=== PATIENT | female | born 1975 | race Caucasian/White ===

== ENCOUNTER 2024-03-18 01:15 | Inpatient (IN) | payer MEDICARE, OTHER, SELFPAY ==
[2024-03-17 18:47] VITALS: BP 90/72
[2024-03-17] MEDS: TYLENOL/FEVERALL 650 MG RECTAL (20:28)
--- NOTE | 2024-03-17 20:28 | ED.GENMED ---
History of Present Illness
General
Chief Complaint: Urinary Symptoms
Time Seen by Provider: 03/17/24 19:40
Travel History
Have you had any contact with someone who has COVID-19?: No
Do you have any symptoms of coronavirus? Fever > 100 degrees, chills, cough, shortness of breath, sore throat, loss of taste or smell, muscle aches, or headache?: No
History of Present Illness
History of Present Illness:
48-year-old female with history of cerebral palsy and related TBI presents the emergency department with both parents for evaluation of fever over the past 2 days. She has been treated for recurrent UTIs by her primary care physician multiple
times over the past month, reportedly had courses of Macrobid, ciprofloxacin, and for the past 2 days has been on levofloxacin. Per family she has not been drinking much water for the past 48 hours. She is nonverbal at baseline. All of her past
urine culture data is through [facility] and the parents do not have access to her health portal at this time
Review of Systems
Review of Systems
Allergies reviewed?: Yes
All Other Systems: ROS reviewed and negative except as documented in HPI and ROS
Phy Exam
Physical Exam
Physical Exam:
GEN: Chronically ill-appearing, nonverbal
HEENT: Oral mucosa dry, pupils PERRLA
Cardiac: Mildly tachycardic, regular
Lung: Tachypneic, coarse throughout rhonchi heard throughout all lung barkley, potentially transmitted upper airway sounds
Abdomen: Soft, nonrigid, patient grunts to palpation of the lower abdomen
MSK: No gross deformity or injuries
Skin: Good color, no pallor or jaundice, no rashes
Neuro: Eyes open, does not follow commands
Psych: Calm, cooperative
Course
Orders/Labs/Results
Orders:
Orders
03/17/24 20:27
Acetaminophen [Tylenol/Feverall] 650 mg .ROUTE .STK-MED ONE
05/03/24 20:28
Straight cath- Treatment ONCE
Acetaminophen [Tylenol/Feverall] 650 mg RECTAL NOW STA
03/17/24 20:42
Complete Blood Count/With Diff Urgent
Comprehensive Metabolic Panel Urgent
Lactic Acid Q4H
Comment: CANCEL 2nd LACTIC ACID IF 1st LACTIC ACID IS LESS THAN 2
Prothrombin Time Urgent
Urinalysis Reflex To Culture Urgent
Date Specimen was Collected: 03/17/24
Time Specimen was Collected: 20:39
Urine Microscopic Reflex Cult Urgent
Blood Culture Q30M
MANSOOR Source: Blood/Venous
Specimen Description:
Blood Culture Q30M
MANSOOR Source: Blood/Venous
Specimen Description:
Urine Culture Urgent
MANSOOR Source: U
Specimen Description:
Date Specimen was Collected: 03/17/24
Time Specimen was Collected: 20:39
03/17/24 20:58
CT Chest/abd/pel W Iv Cont Urgent
Comment:
Reason For Exam: sepsis, hypoxic, recent UTI, non verbal
03/17/24 21:13
COVID-19 Antigen Urgent
Source: Nasal Swab
Influenza A+B Rapid Molecular Urgent
MANSOOR Source: Nasal Swab
Specimen Description:
03/17/24 22:57
Cefepime HCl [Maxipime] 2,000 mg IV NOW STA
03/17/24 23:00
0.9% Sodium Chloride 1000 ml [Nss] 1,000 ml IV BOLUS
03/17/24 23:28
Vancomycin 750 mg/150 ml [Vancocin] 750 mg in 150 ml IV NOW
03/17/24 23:29
Procalcitonin Urgent
PCT Algorithmm Indication: Sepsis
03/18/24 00:36
Admit/Transfer Patient As Directed
Co-Sign Provider:
Level of Care: Inpatient admission
Assign to:: IMU- Intermediate Care
Physician / Group: Yosef
Diagnosis: Sepsis, Pneumonia
Reason for Hospitalization: Sepsis, Pneumonia
Expected length of stay greater than two midnights?: Yes
ELOS- Estimated Length of Stay in days: 3
I certify the patient meets the requirements for IP care: Yes
03/18/24 00:54
Code Status As Directed
Resuscitation Status: Full Code
03/18/24 01:31
0.9% Sodium Chloride 1000 ml [Nss] 1,000 ml IV 125 mls/hr
Acetaminophen [Tylenol] 650 mg PO Q4HPRN PRN
Albuterol Nebs [Ventolin Nebules] 2.5 mg INH R Q4HPRN PRN
03/18/24 01:31
Consult Notification Routine
Specialty to Notify: Infectious Disease
INFECTIOUS DISEASE CONSULT Routine
Consulting Provider: Odilia Sy
Was physician already notified: No
Reason for consult: Sepsis, Pneumonia / UTI
TSH Reflex To Free T4 Routine
Strep pneumoniae Antigen Routine
MANSOOR Source: Urine
Specimen Description:
Activity As Directed
Activity Level: Out of Bed- Chair
With Assistance
Bladder Scan As Directed
Follow Bladder Retention/Intermittent Cath Algorithm?: Yes
PRN if no void in __ hours: 6
Frequency: Per Retention Algorithm
If Bladder Scan Result >: 400
then:: Straight cath
I/O [Intake/ Output] As Directed
Frequency: Per unit guidelines
Pneumatic Compression Sleeves As Directed
Type: Knee high
Records Request [Obtain Records] As Directed
Dates of Information to be Released: Most Recent
Type of Information Requested: Lab Results
If Other, list type of info requested: Micro / Urine cultures
Obtain Records from: Dr. Timbo Courtney
Straight Cath As Directed
Frequency: Per Retention Algorithm
Additional Instructions: straight cath as needed per acute urinary retention algorithm for 24 hrs
Additional Instructions: for bladder scan greater than 400 mL
Vital Signs As Directed
Frequency: Per unit guidelines
Chest PT [Rx Chest Pt] [RESP] Routine
Special Instructions: BID
Oxygen Therapy [O2 Therapy] [RESP] Routine
Titrate/Wean O2 to maintain O2 sat greater than (%): 94
Ot Eval And Treat Routine
PT Consult [Pt Eval And Treat] Routine
Activity Level: Ambulate
With Assistance
Speech Therapy Eval & Treat Routine
US Renal With Bladder Routine
Comment:
Reason For Exam: Recurrent UTI
DX Deep Vein Thrombosis Video Routine
03/18/24 02:00
Piperacillin/Tazo 3.375 Gram [Zosyn] 3.375 gram in 50 ml IV Q6H
03/18/24 06:00
Basic Metabolic Panel IN AM
Complete Blood Count/No Diff IN AM
03/18/24 08:00
Clobazam (Non-Form) [Onfi] 10 mg PO BID
Docusate Sodium [Colace Liquid] 100 mg PO DAILY
Midodrine [ProAmatine] 15 mg PO TID
Polyethylene Glycol Powder [Miralax] 17 grams PO DAILY
oxcarbazepine [Trileptal] 600 mg PO BID
03/18/24 18:00
Enoxaparin Sodium [Lovenox] 40 mg SC QPM
Spvmavuny-Ysj-Ozuh [Femara] 2.5 mg PO QPM
Montelukast Sodium [Singulair] 10 mg PO QPM
Sennosides [Senna Syrup] 8.8 mg PO QPM
03/18/24 22:00
tiagabine 4 mg PO HS
03/19/24 Breakfast
NPO
Allow oral meds: Yes
Allow clear liquids: Sips of Clears
Abnormal Lab Results
03/17/24
20:42
MPV 10.9 H fL
(7.4-10.4)
Absolute Lymphs (auto) 0.7 L 10^3/uL
(1.2-3.4)
Absolute Monos (auto) 0.7 H 10^3/uL
(0.1-0.6)
Neutrophils % 79.2 H %
(42.2-75.2)
Lymphocytes % 9.8 L %
(20.5-51.1)
PT 15.2 H Sec
(11.4-14.6)
Chloride 109 H mmol/L
(98-107)
BUN 33 H mg/dl
(7-17)
Glucose 104 H mg/dl
(70-99)
AST 48 H U/L
(14-36)
Urine Ketones Trace A
(Negative)
Ur Occult Blood Reflex 3+ A
(Negative)
Leukocyte Esterase Rfl 2+ A
(Negative)
Urine RBC 30-40 A /HPF
(0-2)
Urine WBC (Reflex) 50-60 A /HPF
(0-5)
Urine Bacteria (Reflex) Many A
(Negative)
03/17/24 20:42
03/17/24 20:42
Vital Signs
Initial and Last Documented VS:
Initial Vital Signs
Temp Pulse Resp BP Pulse Ox
99.1 F 94 22 90/72 95
03/17/24 18:47 03/17/24 18:47 03/17/24 18:47 03/17/24 18:47 03/17/24 18:47
Last Documented Vital Signs
Temp Pulse Resp BP Pulse Ox
100 F 90 16 94/53 94
03/17/24 22:30 03/17/24 22:30 03/17/24 20:52 03/18/24 01:00 03/18/24 01:00
MDM/Problems Addressed
MDM/Problems Addressed:
Given the patient's nonverbal status as well as her associated hypoxia we opted for CT of the chest abdomen pelvis to evaluate for occult source of fever, this did note extensive bilateral pneumonia. Could be viral in nature given the bilateral
pattern coupled with lack of leukocytosis and normal procalcitonin however given her medical comorbidities we will treat this with broad-spectrum IV antibiotics particularly given the likelihood of a UTI. Will admit to the hospitalist service due
to hypoxia with pneumonia
*Critical Care Note
Total Time (30-74mins, 75-104mins- exclusive of procedures): Not Applicable
ED Attending Note
-
Portions of this chart may have been created with voice recognition software.� Occasional wrong word or��sound alike� substitutions may have occurred due to the inherent limitations of voice recognition software.
Discharge Plan
Departure
Patient Disposition: Admit
Date of Disposition: 03/17/24
Time of Disposition: 23:00
Presentation/result/management discussed w/ accepting MD/DO: Hospitalist
Discharge Problem:
Bilateral pneumonia, Urinary tract infection
Interventions
Interventions:
*Risk Screen - Suicide Last Done: 03/17/24 18:47
*General Assessment Last Done: 03/17/24 19:59
*Neglect/Abuse Screening Last Done: 03/17/24 18:47
ED- Fall Risk Assessment Last Done: 03/17/24 18:47
*ED COVID-19 Vaccine History Last Done: 03/17/24 18:47
ED-Female Genitourinary Assessment Last Done: 03/17/24 19:59
[2024-03-17 20:50] LABS: % Basophils 0.5 % (0-2); % Eosinophils 1.3 % (0-6); % Immature Granulocytes 0.4 % (0-0.5); % Lymphocytes 9.8 % (20.5-51.1); % Monocytes 8.8 % (1.7-9.3); % Neutrophils 79.2 % (42.2-75.2); Absolute Eosinophils 0.1 10^3/uL (0-0.7); Absolute Lymphocytes 0.7 10^3/uL (1.2-3.4); Absolute Monocytes 0.7 10^3/uL (0.1-0.6); Hematocrit 37.7 % (37.0-47.0); Hemoglobin 13.1 g/dL (12.0-16.0); Mean Corp Hgb Conc. 34.7 g/dL (33.0-37.0); Mean Corpuscular Hgb 29.7 pg (27.0-31.0); Mean Corpuscular Volume 85.5 fL (81.0-99.0); Mean Platelet Volume 10.9 fL (7.4-10.4); Nucleated Red Blood Cells % 0 %; Platelet Count 204 10^3/uL (130-400); Red Blood Cell Count 4.41 10^6/uL (4.20-5.40); Red Cell Dist. Width 13.5 % (11.5-14.5); White Blood Cell Count 7.5 10^3/uL (4.8-10.8)
[2024-03-17 20:51] LABS: Urine Albumin Trace (Neg - Trace); Urine Bilirubin Negative (Negative); Urine Character Slightly Cloudy (Clear); Urine Color Yellow; Urine Glucose Negative (Negative); Urine Ketone Trace (Negative); Urine Leukocyte 2+ (Negative); Urine Nitrite Negative (Negative); Urine Occult Blood 3+ (Negative); Urine Urobilinogen Negative (Neg - 1+)
[2024-03-17 20:52] VITALS: BP 105/73
[2024-03-17 20:57] LABS: Urine Calcium Oxalate Crystals Present
[2024-03-17 20:58] LABS: Urine White Cell 50-60 /HPF (0-5)
[2024-03-17 21:00] VITALS: BP 99/61
[2024-03-17 21:00] LABS: INR 1.22; PT 15.2 Sec (11.4-14.6)
[2024-03-17 21:01] LABS: Lactic Acid 1.7 mmol/L (0.7-2.0); Urine Red Blood Cell 30-40 /HPF (0-2)
[2024-03-17 21:03] LABS: Urine Bacteria Many (Negative)
[2024-03-17 21:18] LABS: ALT (SGPT) 21 U/L (0-35); AST (SGOT) 48 U/L (14-36); Alkaline Phosphatase 121 U/L (38-126); Blood Urea Nitrogen 33 mg/dl (7-17); Carbon Dioxide 25 mmol/L (22-30); Chloride 109 mmol/L (98-107); Estimated Creatinine Clearance 65 ml/min; Glucose 104 mg/dl (70-99); Potassium 4.3 mmol/L (3.5-5.1); Sodium 139 mmol/L (135-145); Total Bilirubin 0.6 mg/dl (0.2-1.3); Total Protein 7.4 g/dl (6.3-8.2); eGFR > 60.00
[2024-03-17 21:36] LABS: COVID-19 Antigen Negative (Negative)
[2024-03-17 22:29] VITALS: BP 94/44
[2024-03-17 22:30] VITALS: BP 94/44
[2024-03-17] MEDS: NSS 1000 IV (23:26)
[2024-03-17] MEDS: MAXIPIME 2000 MG IV (23:26)
[2024-03-17] MEDS: VANCOCIN 150 IV (23:46)
[2024-03-18] VITALS (19 sets, daily range): BP systolic 75–133; BP diastolic 38–118; BMI 26.9
[2024-03-18 00:17] LABS: Procalcitonin 0.08 ng/ml (0.0-0.25)
--- NOTE | 2024-03-18 00:58 | HPS.HSE ---
Family Physician
-
Family Physician: Timbo Courtney
Chief Complaint
-
Fever
History of Present Illness
Patient is a 48y F with PMH significant for cerebral palsy and ovarian cancer who presents to ED for evaluation of fever, congestion and decreased urine output over the past 24 hours. History obtained from family at the bedside as patient is
non-verbal at baseline. Patient has been having issues with 'UTI' for the past month or so. She has been followed by Dr. Timbo Courtney and has been treated with 3 abx in that time frame. Family states that she had an abnormal UA and was treated
with 10 days of antibiotics. One week after these completed, she had a repeat UA done. This was reportedly still 'positive' and patient was treated with a second 10 days course of abx. Again, she had a repeat UA done 1 week later and was started
on levofloxacin 500mg daily. She has completed 2/3 days of this course thus far.
Today, patient was noted to be more lethargic than usual. Family noted nasal congestion, increased respiratory effort and poor oral intake.
She had no urine output throughout the day on Wednesday - until she arrived here in the ED and passed some urine.
Patient was noted ta home to have a fever to 102. Here in the ED temperature is 103.2.
No recent sick contacts are known - though patient does attend a day care program.
Medical History
Past Medical History
Past Medical History: Reports Other
Additional Past Medical History:
Cerebral Palsy
Ovarian Cancer s/p Surgery and Hormone Treatment
Seizure Disorder
Past Surgical History: Reports Other
Additional Past Surgical History:
LUCERO / BSO
Appendectomy
Vagus Nerve Stimulator Implantation (Left Upper Chest)
Social History
Tobacco: Non-smoker
Alcohol: None
Drug: None
Living: With Family
Family History
Family History: Not pertinent
Allergies / Home Medications
Allergies reflects when Allergies were last updated in [facility].
Home Medications with original date entered in [facility]
Allergy/Medication List:
Allergies
Allergy/AdvReac Type Severity Reaction Status Date / Time
brompheniramine Allergy Unknown Verified 03/17/24 18:58
[From Dimetapp Cold-Allergy
(PE)]
cephalexin [From Keflex] Allergy Unknown Verified 03/17/24 18:58
chloral hydrate Allergy Unknown Verified 03/17/24 18:58
diphenhydramine Allergy Unknown Verified 03/17/24 18:58
[From Benadryl]
latex Allergy Swelling Verified 03/17/24 18:54
phenobarbital Allergy Unknown Verified 03/17/24 18:58
phenylephrine Allergy Unknown Verified 03/17/24 18:58
[From Dimetapp Cold-Allergy
(PE)]
phenytoin [From Dilantin] Allergy Rash Verified 03/17/24 18:54
Sulfa (Sulfonamide Allergy Hives Verified 03/17/24 18:46
Antibiotics)
topiramate [From Topamax] Allergy Rash Verified 03/17/24 18:54
Home Medications
Lactobac no.2-Bifidobac no.1-S. thermo 112.5 billion cell capsule (Visbiome) 1 cap PO DAILY 03/17/24
ascorbic acid (vitamin C) 500 mg tablet (Vitamin C) 500 mg PO DAILY 03/17/24
calcium carbonate 500 mg PO QPM 03/17/24
cetirizine 10 mg tablet (Zyrtec) 10 mg PO DAILY 03/17/24
clobazam 10 mg tablet (Onfi) 10 mg PO BID 03/17/24
docusate sodium 50 mg/5 mL oral liquid 100 mg PO DAILY 03/17/24
fluticasone propionate 50 mcg/actuation nasal spray,suspension 1 spray intranasal DAILY 03/17/24
letrozole 2.5 mg tablet 2.5 mg PO QPM 03/17/24
midodrine 5 mg tablet 15 mg PO TID 03/17/24
montelukast 10 mg tablet (Singulair) 10 mg PO QPM 03/17/24
nitrofurantoin macrocrystal 50 mg capsule 50 mg PO DAILY 03/17/24
oxcarbazepine 600 mg tablet (Trileptal) 600 mg PO BID 03/17/24
polyethylene glycol 3350 17 gram oral powder packet (Miralax) 17 g PO DAILY 03/17/24
sennosides 8.8 mg/5 mL oral syrup (senna) 8.8 mg PO QPM 03/17/24
tiagabine 4 mg tablet 4 mg PO HS 03/17/24
Review of Systems
-
History Source: Family
A 12 point ROS was completed and negative except as noted: Yes
Constitutional: Reports Fever and Fatigue
EENT: Reports Other (nasal congestion)
Respiratory: Reports Trouble Breathing; Denies Cough
Cardiac: Denies Chest Pain
Abdomen/GI: Reports Constipated and Anorexia; Denies Nausea, Vomiting, Diarrhea, Bloody Stools or Black Stools
: Reports Other (Decreased urine output.)
Physical Exam
Vital Signs
Vital Signs
Temp Pulse Resp BP Pulse Ox
100 F 90 16 94/44 94
03/17/24 22:30 03/17/24 22:30 03/17/24 20:52 03/17/24 22:30 03/18/24 00:45
Physical Exam
General: Other (48y F chronically ill-appearing / moderate - severe cerebral palsy appearance.)
HEENT: Other (Dry MM. Tongue protruded.)
Respiratory: Other (Diffuse rales bilaterally. No wheeze / rhonchi.)
Cardiac: S1/S2 and Regular Rhythm; No Murmur
Breast: Other (L ACW nerve stimulator deice subcutaneously. No overlying erythema, fluid collection, evident tenderness.)
GI: Soft, Non Tender, Non Distended and Normal Bowel Sounds
Musculoskeletal: No Clubbing, No Cyanosis and No Edema
Neuro: Other (Some extremity contractures / chronic. Non-verbal at baseline.)
Laboratory Results
-
03/17/24 20:42
03/17/24 20:
Laboratory Results
PT 15.2 Sec (11.4-14.6) H 03/17/24 20:42
INR 1.22 03/17/24 20:
Lactic Acid 1.7 mmol/L (0.7-2.0) 03/17/24 20:42
Total Bilirubin 0.6 mg/dl (0.2-1.3) 03/17/24 20:
AST 48 U/L (14-36) H 03/17/24 20:
ALT 21 U/L (0-35) 03/17/24 20:
Alkaline Phosphatase 121 U/L (38-126) 03/17/24 20:42
Impression/Plan
-
A/P: Patient is a 48y F with PMH significant for cerebral palsy, seizure disorder and history of ovarian cancer who presents to ED for evaluation of fever, congestion and poor oral intake.
Sepsis
- Admit for further evaluation and treatment.
- Fever to 103.2, tachycardia, tachypnea and potential sources of infection including lungs and .
- Treat / investigate individual issues as noted below.
- IVF support, antipyretics, etc.
- Follow for clinical improvement.
Bilateral Pneumonia
- CT scan with bilateral ground glass opacities c/w pneumonia.
- CT imaging, exam findings, etc are consistent with viral process.
- Procalcitonin was also done in the ED and note that this is 0.08 - also c/w viral infection.
- COVID and influenza are negative in the ED.
- Will continue abx for now - mostly as patient also has possible UTI (see below).
- Follow for clinical improvement.
- Chest PT, nebs, IS, etc.
Persistent / Recurrent UTI?
- UA in the ED today with pos WBC and bacteria, but negative nitrites.
- Patient has completed two 10 day courses of antibiotics + two days of levofloxacin thus far.
- Would be interested in seeing culture data from prior urine testing and will send to Dr. Courtney for these results.
- Continue IV abx for now.
- Follow-up urine culture results here.
- Check renal / bladder US.
- ID evaluation.
Cerebral Palsy
Seizure Disorder
- Stable. Family notes that patient has frequent - though mild - breakthrough seizures.
- Continue current AED regimen without changes.
- Follow for any persistent seizure activity.
History of Ovarian Cancer
- s/p surgery and then hormonal therapy.
- Has completed treatment x 5 years.
- Remains on letrozole at family preference.
DVT Prophylaxis: Lovenox
Code Status: Full
[2024-03-18] MEDS: NSS 1000 IV ×3 (02:20→22:00)
[2024-03-18] MEDS: ZOSYN 50 IV ×4 (02:21→19:37)
--- NOTE | 2024-03-18 03:06 | PTCARENOTE ---
Received pt from ED RN. Pt was pulled over from the stretcher to our bed. Pt is nonverbal. NSR on the monitor. On 2L NC O2 sat 95%, lungs coarse/diminished. Incont x2. IVF infusing @ 125 ml/hr. CHG bath provided and mouth care provided. Mom @
bedside. Pt is laying comfortable in bed with call velazquez in reach.
[2024-03-18 05:24] LABS: Hematocrit 34.4 % (37.0-47.0); Hemoglobin 11.7 g/dL (12.0-16.0); Mean Corpuscular Hgb 29.7 pg (27.0-31.0); Mean Corpuscular Volume 87.3 fL (81.0-99.0); Mean Platelet Volume 11.3 fL (7.4-10.4); Platelet Count 185 10^3/uL (130-400); Red Blood Cell Count 3.94 10^6/uL (4.20-5.40); Red Cell Dist. Width 13.3 % (11.5-14.5); White Blood Cell Count 4.6 10^3/uL (4.8-10.8)
[2024-03-18 05:47] LABS: Blood Urea Nitrogen 29 mg/dl (7-17); Calcium 9.5 mg/dl (8.4-10.2); Carbon Dioxide 22 mmol/L (22-30); Chloride 112 mmol/L (98-107); Estimated Creatinine Clearance 79 ml/min; Glucose 92 mg/dl (70-99); Potassium 4.1 mmol/L (3.5-5.1); Sodium 140 mmol/L (135-145); eGFR > 60.00
[2024-03-18 06:16] LABS: TSH Reflex To Free T4 1.62 uIU/ml (0.47-4.68)
--- NOTE | 2024-03-18 08:21 | W.PN.UPDATE ---
Update Note
Progress Note Update
Seen by Dr. Navas this morning.
Admitted for sepsis -possible pneumonia/possible UTI.
Afebrile this morning. Hemodynamically stable. Oxygenating well on 1 L.
Eyes open but patient nonverbal.
Continue with broad-spectrum antibiotics pending culture data.
Obtain speech eval.
ID input pending.
Discussed with mother Tanisha at bedside regarding the findings and tx plan.
[2024-03-18] MEDS: ProAmatine 15 MG PO ×2 (09:07→22:00)
--- NOTE | 2024-03-18 09:47 | PTOTSP ---
Speech Therapy
Presentation: Patient is primarily nonverbal; baseline per mother. Patient demonstrated inconsistent wake windows in which patient would utilize eye gaze and intermitent verbalizations to communicate.
Per patient's mother, patient's baseline diet is puree solids and nectar thick liquids (straw) with full assistance/ supervision by mother. Medications crushed in puree, per mother.
Swallowing Function: During a wake window, BUSINESS CONTINUITY MANAGER trialed puree solids and nectar thick liqids (straw and tsp) in which patient did not appear interested in the presentations as she did not open her mouth to take the boluses. BUSINESS CONTINUITY MANAGER trialed ample times to
get the patient to follow commands in which patient inconsistently followed command minimally but not enough to take the presentations. Per mother, this is new for patient (past 2 days) but typically takes PO without any overt difficulty and has a
'good appetite'.
Given the recent Chest CT, pna, hx of dysphagia, and clinical presentation, recommend NPO at this time in hopes patient will become more alert prior to initiating diet.
Recommendations:
1) NPO at this time
2) Vigorous oral care daily
3) Aspiration precautions
4) Medications as tolerated
Plan: BUSINESS CONTINUITY MANAGER will continue to follow; pending hospitalization.
--- NOTE | 2024-03-18 10:46 | CON.ID ---
Consultation
-
Date/Time Consultation Requested: 03/18/24 1:31
Date/Time Consultation Performed: 03/18/24 10:46
Requesting Provider: Dr Navas
Performing Provider: Dr Sy
Reason for Consultation: Sepsis, Pneumonia / UTI
Chief Complaint / Past History
Chief Complaint
fever
History of Present Illness
Ms Orantes is a 48 year old female with history of cerebral palsy, seizure disorder, ovarian cancer who presented here last night for fever to 102.0, congestion, increased work of breathing, decreased UOP and poor oral intake. Patient nonverbal.
Family report three courses of antibiotics for UTI in the last month of so; at least some of these diagnoses are based on test of cure. Last antibiotic was levofloxacin 500 mg PO qday and she had taken 2 doses prior to arrival.
Since arrival here rectal Tmax 103.2 - no further fevers, bp intermittently mildly hypotensive, minimal short lived tachycardia, saturating 93% on 1L NC, wbc on arrival 7.5 now 4.6, hgb 11.7, plt 185, L shift was noted on admission, eos present, cr
0.7, lactic acid 1.7, t bili 0.6, ast 48, alt 21, alk phos 121, UA 50-60 wbc/hpf, covid ag neg, Ct c/a/p bilateal pneumonia, constipation, diffuse urinary bladder thickening, urine culture is pending, blood cultures x2 in progress, currently on Zosyn
Past History
Additional Past Medical History:
Cerebral Palsy
Ovarian Cancer s/p Surgery and Hormone Treatment
Seizure Disorder
Additional Past Surgical History:
LUCERO / BSO
Appendectomy
Vagus Nerve Stimulator Implantation (Left Upper Chest)
Allergy History:
brompheniramine [From Dimetapp Cold-Allergy (PE)] Allergy (Verified 03/17/24 18:58)
Unknown
cephalexin [From Keflex] Allergy (Verified 03/17/24 18:58)
Unknown
chloral hydrate Allergy (Verified 03/17/24 18:58)
Unknown
diphenhydramine [From Benadryl] Allergy (Verified 03/17/24 18:58)
Unknown
latex Allergy (Verified 03/17/24 18:54)
Swelling
phenobarbital Allergy (Verified 03/17/24 18:58)
Unknown
phenylephrine [From Dimetapp Cold-Allergy (PE)] Allergy (Verified 03/17/24 18:58)
Unknown
phenytoin [From Dilantin] Allergy (Verified 03/17/24 18:54)
Rash
Sulfa (Sulfonamide Antibiotics) Allergy (Verified 03/17/24 18:46)
Hives
topiramate [From Topamax] Allergy (Verified 03/17/24 18:54)
Rash
Medications Reviewed: Yes
Social History
Tobacco: Non-Smoker
Alcohol: None
Drug: None
Family History
Family History: Not Pertinent
Review of Systems
Review of Systems
General: Fever
unable to complete full ROS due to condition of the patient
Vital Signs
Temp Pulse Resp BP Pulse Ox
98.2 F 77 20 97/57 93
03/18/24 07:50 03/18/24 07:50 03/18/24 07:50 03/18/24 06:01 03/18/24 07:50
Physical Exam
Physical Exam
Constitutional: No Acute Distress
Cardiovascular: Regular Rate and S1/S2; Negative Murmur or Rub
Pulmonary: Clear and Symmetric; Negative Wheezes, Rales or Rhonchi
Gastrointestinal: Soft, Non Tender, Non Distended and Normal Bowel Sounds
Genito-Urinary: Suprapubic Tenderness (grimaces when I press over the bladder)
Skin: Warm and Dry; Negative Rash or Jaundice
Neurological: Negative Awake
Lab / Diagnostic Study Results
03/18/24 05:03
03/18/24 05:03
Abs Immat Gran (auto) 0.0 10^3/uL (0-0.05) 03/17/24 20:42
Absolute Neuts (auto) 6.0 10^3/uL (1.4-6.5) 03/17/24 20:42
Absolute Lymphs (auto) 0.7 10^3/uL (1.2-3.4) L 03/17/24 20:42
Absolute Monos (auto) 0.7 10^3/uL (0.1-0.6) H 03/17/24 20:42
Absolute Basos (auto) 0.0 10^3/uL (0-0.2) 03/17/24 20:42
Immature Gran % 0.4 % (0-0.5) 03/17/24 20:42
Neutrophils % 79.2 % (42.2-75.2) H 03/17/24 20:42
Lymphocytes % 9.8 % (20.5-51.1) L 03/17/24 20:42
Monocytes % 8.8 % (1.7-9.3) 03/17/24 20:42
Eosinophils % 1.3 % (0-6) 03/17/24 20:42
Basophils % 0.5 % (0-2) 03/17/24 20:42
PT 15.2 Sec (11.4-14.6) H 03/17/24 20:42
INR 1.22 03/17/24 20:42
Lactic Acid Cancelled 03/18/24 00:30
Procalcitonin 0.08 ng/ml (0.0-0.25) 03/17/24 23:29
Microbiology Results
Micro:
03/17/24 20:42 Streptococcus pneumoniae Antigen (M - Final
Urine Negative for Streptococcus pneumoniae antigen.
A negative result does not exclude infection with
Streptococcus pneumoniae. Clinical correlation is
recommended.
03/17/24 21:13 Influenza Types A & B ([facility]ARA) - Final
Nasal Swab Negative for Influenza A & B, NAAT
Negative results must be combined with clinical observations
and patient history.
Nucleic Acid Amplification test (NAAT)performed on the
[employer] platform.
03/17/24 20:42 Blood Culture - Pending
Blood/Venous
03/17/24 20:42 Urine Culture - Pending
Urine
03/17/24 20:42 Blood Culture - Pending
Blood/Venous
Assessment / Plan
Fever
Possible UTI
Recurrent UTIs
Leukopenia
- blood cultures x2 in progress
- ua with pyuria
- urine culture pending
- bladder scans/PRN straight caths
- no evidence of nidus for recurrent infections on CT
- check qtc
- negative procal does not rule out uti
- agree with bowel regimen
- agree with zosyn
- follow clinically
--- NOTE | 2024-03-18 12:48 | PTCARENOTE ---
PT WITH RA INFILTRATE FROM US GUIDED IV. +1-2 EDEMA WITH SOME DISCOMFORT ELICITED WHEN PALPATED. IV DC'D. ARM ELEVATED, WARMTH APPLIED.WILL CONT TO MONITOR
[2024-03-18] MEDS: ONFI 10 MG PO ×2 (13:51→22:00)
[2024-03-18] MEDS: TRILEPTAL 600 MG PO ×2 (15:33→22:00)
--- NOTE | 2024-03-18 16:00 | PTCARENOTE ---
Patient NPO except for meds. Patient did not follow commands for speech therapy earlier today. Patient nonverbal. They will evaluate her again tomorrow. IV fluids infusing via left FA INT. Medications crushed in applesauce. Patient INC of urine
x2. Patient urine dark and foul odor. BP's improved. Family in room at bedside. SR on monitor.
[2024-03-18] MEDS: ProAmatine PO (18:31)
[2024-03-18] MEDS: FEMARA 2.5 MG PO (18:33)
[2024-03-18] MEDS: LOVENOX 40 MG SC (18:34)
[2024-03-18] MEDS: SENNA SYRUP 8.80000000000000071 MG PO (18:34)
[2024-03-18] MEDS: SINGULAIR PO (18:35)
--- NOTE | 2024-03-18 20:13 | PTCARENOTE ---
Received pt from dayshift RN. Pt is nonverbal. NSR on the monitor. On RA during the day, 2L NC placed when pt asleep due to O2 sat dropped to 87%, lungs coarse/diminished. Incont of stool and urine, hygiene provided. Pt NPO, PO meds given crushed in
applesauce. Mom at bedside. Pt is laying comfortable in bed with call velazquez in reach.
[2024-03-19] VITALS (12 sets, daily range): BP systolic 90–165; BP diastolic 65–94
[2024-03-19] MEDS: ZOSYN 50 IV ×4 (02:52→21:30)
[2024-03-19 03:37] LABS: Hemoglobin 13.1 g/dL (12.0-16.0); Mean Corp Hgb Conc. 35.4 g/dL (33.0-37.0); Mean Corpuscular Hgb 30.2 pg (27.0-31.0); Mean Corpuscular Volume 85.3 fL (81.0-99.0); Mean Platelet Volume 10.8 fL (7.4-10.4); Platelet Count 217 10^3/uL (130-400); Red Blood Cell Count 4.34 10^6/uL (4.20-5.40); Red Cell Dist. Width 12.6 % (11.5-14.5); White Blood Cell Count 6.5 10^3/uL (4.8-10.8)
[2024-03-19 03:59] LABS: Blood Urea Nitrogen 16 mg/dl (7-17); Calcium 9.3 mg/dl (8.4-10.2); Carbon Dioxide 20 mmol/L (22-30); Chloride 107 mmol/L (98-107); Estimated Creatinine Clearance 79 ml/min; Glucose 88 mg/dl (70-99); Potassium 4.1 mmol/L (3.5-5.1); Sodium 134 mmol/L (135-145); eGFR > 60.00
[2024-03-19] MEDS: NSS 1000 IV (05:31)
[2024-03-19] MEDS: ProAmatine 15 MG PO ×2 (09:01→21:30)
--- NOTE | 2024-03-19 09:02 | VATNOTE ---
Infiltrate to R arm from 5/ resolved.
[2024-03-19] MEDS: ONFI 10 MG PO ×2 (09:06→21:30)
[2024-03-19] MEDS: TRILEPTAL 600 MG PO ×2 (09:07→21:30)
--- NOTE | 2024-03-19 09:17 | W.PN.HOSP.TC ---
Today's Communication/Plan
-
Continue with antibiotics
Start a modified diet
VSE tomorrow
Assessment / Plan
Assessment / Plan
A/P: Patient is a 48y F with PMH significant for cerebral palsy, seizure disorder and history of ovarian cancer who presents to ED for evaluation of fever, congestion and poor oral intake.
Sepsis
- Stable hemodynamics. Afebrile today. Clinically improved.
Bilateral Pneumonia
- CT scan with bilateral ground glass opacities c/w pneumonia.
- Difficult historian due to cerebral palsy and difficult to assert if any respiratory symptoms. Mother did bring up to our attention that patient had had a small plastic object lodged in the posterior pharynx and she was drooling. It was
apparently removed by PCP. History of drooling enlargement of a foreign body in the pharynx swallowing issues cannot be excluded and the pneumonia can be an aspirational issue.
-Speech recommending VSE. Cleared for IDDSI 4 diet for now.
- COVID and influenza are negative in the ED.
- Will continue abx for now
Persistent / Recurrent UTI?
- UA in the ED today with pos WBC and bacteria, but negative nitrites.
- Patient has completed two 10 day courses of antibiotics + two days of levofloxacin thus far.
- Would be interested in seeing culture data from prior urine testing and will send to Dr. Courtney for these results.
- Continue IV abx for now.
- Follow-up urine culture results here.
- ID following
Cerebral Palsy
Seizure Disorder
- Stable. Family notes that patient has frequent - though mild - breakthrough seizures.
- Continue current AED regimen without changes.
- Follow for any persistent seizure activity.
History of Ovarian Cancer
- s/p surgery and then hormonal therapy.
- Has completed treatment x 5 years.
- Remains on letrozole at family preference.
DVT Prophylaxis: Lovenox
Code Status: Full
Anticipated Discharge: > 48 hours
Subjective/Interval History
-
Date of Service: March 19, 2024
Today patient is very alert.
Mother thinks that she is ready for some food. Await speech therapy eval.
No overnight issues.
According to RN urinating well without any retention issues further.
Objective Data
-
Labs:
Laboratory Results
03/19/24
03:16
WBC 6.5
Hgb 13.1
Hct 37.0
Plt Count 217
Sodium 134 L
Potassium 4.1
Chloride 107
Carbon Dioxide 20 L
BUN 16
Creatinine 0.7
Glucose 88
Calcium 9.3
Vital Signs:
Vital Signs
Temp Pulse Resp BP Pulse Ox
100.0 F 79 23 122/85 94
03/19/24 03:00 03/19/24 06:00 03/19/24 06:00 03/19/24 06:00 03/19/24 06:00
I&O
03/18/24 03/19/24 03/20/24
06:59 06:59 06:59
Intake Total 675 / 675 3000 / 3000
Balance 675 / 675 3000 / 3000
Review of Systems
-
Unable to obtain full review of systems at this time due to: Patient Non-verbal
Physical Exam
-
General: No Apparent Distress
HEENT: Moist Mucous Membranes
Respiratory: Crackles (few heard in left base) and Non Labored Respirations; Negative Wheezes or Accessory Resp Muscle Use
Cardiac: Regular Rhythm and S1/S2
GI: Soft
Neuro: Awake and Alert
Psych: Calm
Data Reviewed
-
Labs: Labs Reviewed by me
--- NOTE | 2024-03-19 10:37 | W.PN.ID1 ---
Date of Service
Date of Service: March 19, 2024
Today's Communication
continue zosyn
Assessment / Plan
Fever
Possible UTI
Recurrent UTIs
Leukopenia
- blood cultures x2 in progress
- ua with pyuria
- urine culture pending
- bladder scans/PRN straight caths
- no evidence of nidus for recurrent infections on CT
- qtc acceptable
- negative procal does not rule out uti
- agree with bowel regimen
- agree with zosyn
- follow clinically
Chief Complaint
-: UTI
Subjective / Review of Systems
afebrile
bp borderline low
no leukocytosis
cr 0.7
urine culture pending
blood cultures no growth
Vital Signs / Physical Exam
Vital Signs
Vital Signs
Temp Pulse Resp BP Pulse Ox
100.0 F 79 22 91/70 94
03/19/24 03:00 03/19/24 08:00 03/19/24 08:00 03/19/24 08:00 03/19/24 06:00
Physical Exam
Constitutional: No Acute Distress
Cardiovascular: Regular Rate and S1/S2; Negative Murmur or Rub
Pulmonary: Clear and Symmetric; Negative Wheezes or Rales
Gastrointestinal: Soft, Non Tender, Non Distended and Normal Bowel Sounds
Genito-Urinary: Other (doesnt grimace when I press over the bladder today)
Skin: Warm and Dry; Negative Rash or Jaundice
Objective Data
Lab Data
Lab Results
03/19/24 03:16
03/19/24 03:16
PT 15.2 Sec (11.4-14.6) H 03/17/24 20:42
INR 1.22 03/17/24 20:42
Estimated Creat Clear 79 ml/min 03/19/24 03:16
Lactic Acid Cancelled 03/18/24 00:30
Total Bilirubin 0.6 mg/dl (0.2-1.3) 03/17/24 20:42
AST 48 U/L (14-36) H 03/17/24 20:42
ALT 21 U/L (0-35) 03/17/24 20:42
Alkaline Phosphatase 121 U/L (38-126) 03/17/24 20:42
Most recent labs reviewed.
Micro Results:
03/17/24 20:42 Blood Culture - Preliminary
Blood/Venous No Growth in 24 hours- Final report to follow
03/17/24 20:42 Blood Culture - Preliminary
Blood/Venous No Growth in 24 hours- Final report to follow
03/17/24 20:42 Streptococcus pneumoniae Antigen (M - Final
Urine Negative for Streptococcus pneumoniae antigen.
A negative result does not exclude infection with
Streptococcus pneumoniae. Clinical correlation is
recommended.
03/17/24 21:13 Influenza Types A & B (SAMARA) - Final
Nasal Swab Negative for Influenza A & B, NAAT
Negative results must be combined with clinical observations
and patient history.
Nucleic Acid Amplification test (NAAT)performed on the
[employer] platform.
03/17/24 20:42 Urine Culture - Pending
Urine
--- NOTE | 2024-03-19 10:44 | PTOTSP ---
Speech Therapy
Presentation: Patient appeared more alert in comparison to 03/18/24.
Swallowing Function: Patient was presented with several attempts of liquid via straw in which she was unable to coordinate the movements to pull from the straw and appeared disinterested in doing so. Per mother, this is new as of yesterday as she
usually would drink from a straw at home.
BAR STAFF trialed tsp of honey thick liquids, nectar thick liquids and puree solids via tsp. Patient appeared to tolerate honey thick liquids (moderately thick) and puree solids via tsp as she did not exhibit any overt clinical s/sx of aspiration or
difficulty with mastication/ manipulation. Patient did, of note, demonstrate 1 instance of reflexive coughing after nectar thick (mildly thick) liquid tsp presentation.
Given the above information, hx of dysphagia (puree and nectar thick liquids at home), hx of cerebral palsy, and CXR, recommend VSE to further assess her swallowing function and r/o silent aspiration.
Previous VSE: In addition, patient's mother shared that she had a VSE ~ 10 years ago at [facility] in which BAR STAFF recommended nectar thick liquids and puree solids at this time. Given cerebral palsy can be progressive and her recent CXR showed pna, a
VSE would likely benefit patient's overall medical picture and get a more up-to-date recommendation of swallowing function.
Recommendations:
1) Trial of IDDSI Level 4; puree solids and moderately (honey) thick liquids via tsp
2) SMALL, SINGLE bites and sips
3) FULL supervision and assistance with PO
4) Medications as tolerated (likley crushed in puree)
5) VSE
Plan: BAR STAFF will continue to follow; pending hospitalization.
[2024-03-19] MEDS: FLUSH (NSS) 1 FLUSH IV (14:34)
[2024-03-19] MEDS: LOVENOX 40 MG SC (17:33)
[2024-03-19] MEDS: SINGULAIR 10 MG PO (17:35)
[2024-03-19] MEDS: FEMARA 2.5 MG PO (17:35)
[2024-03-19] MEDS: SENNA SYRUP 8.80000000000000071 MG PO (17:35)
[2024-03-20] VITALS (15 sets, daily range): BP systolic 73–132; BP diastolic 48–95
[2024-03-20] MEDS: ZOSYN 50 IV ×4 (02:27→21:37)
--- NOTE | 2024-03-20 08:40 | W.PN.ID1 ---
Date of Service
Date of Service: March 20, 2024
Today's Communication
- blood cultures x2 in progress
- urine culture negative
- minimal cough, nonproductive
- had an episode of possible aspiration last week - foreign body (round plastic disc) found in her mouth, wasnt eating for a day or two, item removed by PCP
- continue with zosyn through this evening (3 days) then stop and monitor clinically x24 hrs, alternatively could discharge tomorrow if patient/family would prefer
Assessment / Plan
Fever
Possible UTI
Pneumonitis - recent possible aspiration episode
Recurrent UTIs
Leukopenia
- blood cultures x2 in progress
- urine culture negative
- minimal cough, nonproductive
- had an episode of possible aspiration last week - foreign body (round plastic disc) found in her mouth, wasnt eating for a day or two, item removed by PCP
- continue with zosyn through this evening (3 days) then stop and monitor clinically x24 hrs, alternatively could discharge tomorrow if patient/family would prefer
Chief Complaint
-: UTI
Subjective / Review of Systems
afebrile
bp stable
alert today, making good eye contact and some expressions
no grimace with pressure over the bladder
minimal nonproductive cough during my exam - mom agrees
Vital Signs / Physical Exam
Vital Signs
Vital Signs
Temp Pulse Resp BP Pulse Ox
97.0 F 67 16 120/78 89
03/20/24 03:56 03/20/24 06:00 03/20/24 06:00 03/20/24 06:00 03/20/24 06:00
Physical Exam
Constitutional: No Acute Distress and Chronically Ill
Cardiovascular: Regular Rate and S1/S2; Negative Murmur or Rub
Pulmonary: Clear, Symmetric and Other (cough mild, nonproductive); Negative Wheezes or Rales
Gastrointestinal: Soft, Non Tender, Non Distended and Normal Bowel Sounds
Skin: Warm and Dry; Negative Rash or Jaundice
Objective Data
Lab Data
Lab Results
03/19/24 03:16
03/19/24 03:16
PT 15.2 Sec (11.4-14.6) H 03/17/24 20:42
INR 1.22 03/17/24 20:42
Estimated Creat Clear 79 ml/min 03/19/24 03:16
Lactic Acid Cancelled 03/18/24 00:30
Total Bilirubin 0.6 mg/dl (0.2-1.3) 03/17/24 20:42
AST 48 U/L (14-36) H 03/17/24 20:42
ALT 21 U/L (0-35) 03/17/24 20:42
Alkaline Phosphatase 121 U/L (38-126) 03/17/24 20:42
Most recent labs reviewed.
Micro Results:
03/17/24 20:42 Blood Culture - Preliminary
Blood/Venous No Growth in 48 hours- Final report to follow
03/17/24 20:42 Blood Culture - Preliminary
Blood/Venous No Growth in 48 hours- Final report to follow
03/17/24 20:42 Urine Culture - Final
Urine NO GROWTH
03/17/24 20:42 Streptococcus pneumoniae Antigen (M - Final
Urine Negative for Streptococcus pneumoniae antigen.
A negative result does not exclude infection with
Streptococcus pneumoniae. Clinical correlation is
recommended.
03/17/24 21:13 Influenza Types A & B (SAMARA) - Final
Nasal Swab Negative for Influenza A & B, NAAT
Negative results must be combined with clinical observations
and patient history.
Nucleic Acid Amplification test (NAAT)performed on the
[employer] platform.
[2024-03-20] MEDS: ProAmatine 15 MG PO ×2 (08:41→21:37)
[2024-03-20] MEDS: TRILEPTAL 600 MG PO ×2 (08:41→21:37)
[2024-03-20] MEDS: ONFI 10 MG PO ×2 (08:41→21:38)
--- NOTE | 2024-03-20 09:14 | W.PN.HOSP.TC ---
Today's Communication/Plan
-
C/s GI
Continue IV zosyn
Assessment / Plan
Assessment / Plan
A/P: Patient is a 48y F with PMH significant for cerebral palsy, seizure disorder and history of ovarian cancer who presents to ED for evaluation of fever, congestion and poor oral intake.
Sepsis
- Stable hemodynamics. Afebrile today. Clinically improved. Continue IV Zosyn
Bilateral Pneumonia
- CT scan with bilateral ground glass opacities c/w pneumonia.
- Difficult historian due to cerebral palsy and difficult to assert if any respiratory symptoms. Mother did bring up to our attention that patient had had a small plastic object lodged in the posterior pharynx and she was drooling. It was
apparently removed by PCP. History of drooling enlargement of a foreign body in the pharynx swallowing issues cannot be excluded and the pneumonia can be an aspirational issue.
- 5/6 VSE shows penetration, esophageal web, SPL recommends pur�ed diet with mildly thickened liquids
- COVID and influenza are negative in the ED.
- Will continue abx for now
Esophageal web with possible dysphagia
-Consult GI
Persistent / Recurrent UTI?
- UA in the ED today with pos WBC and bacteria, but negative nitrites.
- Patient has completed two 10 day courses of antibiotics + two days of levofloxacin thus far.
- Would be interested in seeing culture data from prior urine testing and will send to Dr. Courtney for these results.
- Continue IV abx for now.
- Follow-up urine culture results here.
- ID following
Cerebral Palsy
Seizure Disorder
- Stable. Family notes that patient has frequent - though mild - breakthrough seizures.
- Continue current AED regimen without changes.
- Follow for any persistent seizure activity.
History of Ovarian Cancer
- s/p surgery and then hormonal therapy.
- Has completed treatment x 5 years.
- Remains on letrozole at family preference.
DVT Prophylaxis: Lovenox
Code Status: Full
Physical Exam
General: Appears chronically debilitated, no acute distress
HEENT: Normocephalic, Atraumatic, EOMI, MMM
Respiratory: Clear to Auscultation bilaterally
Cardiac: Normal S1/S2, Regular Rate and Rhythm
GI: Soft, Nontender, Nondistended, Normal Bowel Sounds
Extremities: No Clubbing, Cyanosis, or Edema
Neuro: Nonverbal, nonmobile
Anticipated Discharge: 24 - 48 hours
Subjective/Interval History
-
Date of Service: March 20, 2024
No acute changes. No fever, no vomiting.
Objective Data
-
Vital Signs:
Vital Signs
Temp Pulse Resp BP Pulse Ox
98.2 F 67 16 120/78 90
03/20/24 07:50 03/20/24 06:00 03/20/24 06:00 03/20/24 06:00 03/20/24 08:03
I&O
03/19/24 03/20/24 03/21/24
06:59 06:59 06:59
Intake Total 3000 / 3000 1215 / 1215
Balance 3000 / 3000 1215 / 1215
--- NOTE | 2024-03-20 10:21 | CM ---
Alert awake nonverbal patient who lives with her parents Tiffany Moeller who lives in a ranch home with a ramp to enter.Spoke with her dad he said she has brain damage ,cerebral palsy, seizure disorder.Diagnosed and treated for ovarian cancer.She came
to ED for evaluation of fever, congestion and poor oral intake.She is wheelchair bound They have a wc van ,brijesh lift manual wc,shower chair ,hospital bed. She has a correctional counselor/case manager from [facility] to assist in more direct support professional caregiver time.She has
resumed pureed diet . Awaiting results of VSE.Total assistance in all ADLs.Offered VN they declined need.
No SNF, Had Vn with [facility]
Pharmacy [address]P Dr Timbo Courtney
PLAN Home declined VN
--- NOTE | 2024-03-20 12:19 | PTOTSP ---
Addendum entered and electronically signed by ST Olga 03/20/24 12:24:
7. Medications crushed and mixed in applesauce if medically cleared to do so
Original Note:
Video Swallow Study
Summary: Patient presents with mild oral/pharyngeal stage of swallowing FOR CONSISTENCIES ASSESSED. Etiology of swallowing is felt to be due to her history of CP. Please see patient care note for full details of penetration and swallowing
physiology.
Recommend:
1. IDDSI Level 4 Puree, IDDSI Level 2 (Mildly Thick Liquids)
2. FULL SUPERVISION and ASSISTANCE
3. Strategies: upright to 90 degrees, single sips/bites via tsp or straw, slow rate, ensure patient swallows before next sip/bite, oral care after PO intake with suctioning as needed, reflux precautions
4. Oral care 3x daily
5. GI consult given concern for esophageal web per radiologist
6. Dysphagia therapy for follow up for patient/caregiver education.
--- NOTE | 2024-03-20 13:29 | CON.GI ---
Addendum entered and electronically signed by Emma Anand MD 03/20/24 14:03:
I saw and examined the patient.
The MARBLE CUTTER OPERATOR or PA's note was reviewed and I agree with the note.
Comment: 48-year-old female past medical history of cerebral palsy, ovarian cancer, nonverbal presenting with fever of 103. She is thought to have both UTI and aspiration pneumonia and pneumonitis. According to the father, she was found to have a
flexible clear plastic object at the back of her oropharynx. Prior to this object being found and after was removed, she had no issues swallowing but while she had the plastic object in her mouth, she was drooling. She underwent a speech pathology
result which showed a possible esophageal web.
I discussed with the father at the bedside. Since she has no issues eating her baseline dysphagia diet, no dysphagia typically, he would like to reasonably hold off on any endoscopy. Additionally, given her current pulmonary status, I would not
recommend an endoscopy until she is optimized. Even if she had an esophageal web, without dysphagia I would not recommend dilation. Sometimes esophageal webs are associated with Audrey vision syndrome but this is associated with iron deficiency
anemia and her hemoglobin is 13 at this time. I provided her father with our card and told him to please call our office if at any point she does experience dysphagia and we can readdress possible endoscopy.
I discussed with the hospitalist. GI will sign off at this time. Please call with any questions, issues, changes in clinical status.
Original Note:
Consultation
-
Date/Time Consultation Requested: 03/20/24 1300
Date/Time Consultation Performed: 03/20/24 1320
Requesting Provider: Dr. Mary Albarran
Performing Provider: Dr. Anand/DEBO Resendez
Reason for Consultation: esophageal web
Medical History
Chief Complaint / HPI
Chief Complaint: fever, congestion
History of Present Illness:
48-year-old female past medical history for cerebral palsy, ovarian cancer status post treatment, nonverbal at baseline, seizure disorder, UTI who presents to the emergency room on 03/18/2024 with fevers up to 103 degrees, congestion and decreased
urination. The patient had been to her PCP a couple days prior to arrival where a 3 cm flexible clear plastic object was found in the back of her oropharynx. The patient attends a day program where they noticed her to be drooling. She had
decreased oral intake over the past couple days prior to being seen by PCP where they found this foreign object. Patient is being treated for urinary tract infection as well as pneumonitis with recent possible aspiration episode last week. Patient
had speech-language pathology evaluation with video swallow evaluation. There was question of esophageal web noted we are asked to evaluate for the same. The patient is nonverbal and discussion was had with patient's father at bedside. The
patient is tolerating pur�ed diet without any difficulty. He states that she did not have any difficulty tolerating this and was not exhibiting any difficulty at home prior to this. She never had any signs of nausea, vomiting or regurgitation.
Currently the patient is having O2 saturations in the low 90s. Endoscopy at this time would not be recommended. Discussed with patient's father who agrees. Unsure if he would even want to pursue endoscopy.
Past Medical History
Past Medical History: Cancer (Ovarian cancer) and Other (Cerebral palsy, seizure disorder, UTI)
Past Surgical History: Appendectomy, Gynecological (LUCERO/BSO) and Other (Vagus nerve stimulator left upper chest)
Social History
Tobacco: Non-Smoker
Alcohol: None
Drug: None
Personal: Single
Living: With Family
Family History
Family History: Reviewed & Not Pertinent
Allergies / Home Medications
Allergy/AdvReac Type Severity Reaction Status Date / Time
brompheniramine Allergy Unknown Verified 03/17/24 18:58
[From Dimetapp Cold-Allergy
(PE)]
cephalexin [From Keflex] Allergy Unknown Verified 03/17/24 18:58
chloral hydrate Allergy Unknown Verified 03/17/24 18:58
diphenhydramine Allergy Unknown Verified 03/17/24 18:58
[From Benadryl]
latex Allergy Swelling Verified 03/17/24 18:54
phenobarbital Allergy Unknown Verified 03/17/24 18:58
phenylephrine Allergy Unknown Verified 03/17/24 18:58
[From Dimetapp Cold-Allergy
(PE)]
phenytoin [From Dilantin] Allergy Rash Verified 03/17/24 18:54
Sulfa (Sulfonamide Allergy Hives Verified 03/17/24 18:46
Antibiotics)
topiramate [From Topamax] Allergy Rash Verified 03/17/24 18:54
�Medication �Instructions �Recorded
Lactobac no.2-Bifidobac no.1-S. 1 cap PO DAILY 03/17/24
thermo 112.5 billion cell capsule
(Visbiome)
ascorbic acid (vitamin C) 500 mg 500 mg PO DAILY 03/17/24
tablet (Vitamin C)
calcium carbonate 500 mg PO QPM 03/17/24
cetirizine 10 mg tablet (Zyrtec) 10 mg PO DAILY 03/17/24
clobazam 10 mg tablet (Onfi) 10 mg PO BID 03/17/24
docusate sodium 50 mg/5 mL oral 100 mg PO DAILY 03/17/24
liquid
fluticasone propionate 50 1 spray intranasal DAILY 03/17/24
mcg/actuation nasal
spray,suspension
letrozole 2.5 mg tablet 2.5 mg PO QPM 03/17/24
midodrine 5 mg tablet 15 mg PO TID 03/17/24
montelukast 10 mg tablet 10 mg PO QPM 03/17/24
(Singulair)
nitrofurantoin macrocrystal 50 mg 50 mg PO DAILY 03/17/24
capsule
oxcarbazepine 600 mg tablet 600 mg PO BID 03/17/24
(Trileptal)
polyethylene glycol 3350 17 gram 17 g PO DAILY 03/17/24
oral powder packet (Miralax)
sennosides 8.8 mg/5 mL oral syrup 8.8 mg PO QPM 03/17/24
(senna)
tiagabine 4 mg tablet 4 mg PO HS 03/17/24
Review of Systems
-
Unable to obtain full review of systems at this time due to: Patient Non Verbal
Vital Signs
Temp Pulse Resp BP Pulse Ox
98.2 F 72 21 101/67 92
03/20/24 07:50 03/20/24 12:00 03/20/24 12:00 03/20/24 12:00 03/20/24 13:05
Physical Exam
Exam
General: No Apparent Distress
Respiratory: Clear (Anterior)
Cardiac: Regular Rhythm
GI: Soft, Non Tender, Non Distended and Normal Bowel Sounds
Skin: Warm and Dry
Psych: Calm
Results
WBC 6.5 10^3/uL (4.8-10.8) 03/19/24 03:16
Hgb 13.1 g/dL (12.0-16.0) 03/19/24 03:16
Hct 37.0 % (37.0-47.0) 03/19/24 03:16
MCV 85.3 fL (81.0-99.0) 03/19/24 03:16
Plt Count 217 10^3/uL (130-400) 03/19/24 03:16
Absolute Neuts (auto) 6.0 10^3/uL (1.4-6.5) 03/17/24 20:42
PT 15.2 Sec (11.4-14.6) H 03/17/24 20:42
INR 1.22 03/17/24 20:42
Sodium 134 mmol/L (135-145) L 03/19/24 03:16
Potassium 4.1 mmol/L (3.5-5.1) 03/19/24 03:16
Chloride 107 mmol/L (98-107) 03/19/24 03:16
Carbon Dioxide 20 mmol/L (22-30) L 03/19/24 03:16
BUN 16 mg/dl (7-17) 03/19/24 03:16
Creatinine 0.7 mg/dL (0.6-1.0) 03/19/24 03:16
Calcium 9.3 mg/dl (8.4-10.2) 03/19/24 03:16
Total Bilirubin 0.6 mg/dl (0.2-1.3) 03/17/24 20:42
AST 48 U/L (14-36) H 03/17/24 20:42
ALT 21 U/L (0-35) 03/17/24 20:42
Alkaline Phosphatase 121 U/L (38-126) 03/17/24 20:42
Diagnostic Image Results:
CT abdomen pelvis with IV contrast:
IMPRESSION:
Bilateral pneumonia.
Large amount of stool in the colon consistent with constipation.
Multiple bilateral hypodense lesions in the kidneys consistent with cysts. Mild caliectasis in the right kidney.
Diffuse urinary bladder wall thickening consistent with the history of UTI.
Electronically signed by Caitlin Brown MD 03/17/2024 10:52 PM
Prior GI Procedures:
EGD:
Colonoscopy:
Assessment / Plan
-
48-year-old female past medical history for cerebral palsy, ovarian cancer status post treatment, nonverbal at baseline, seizure disorder, UTI who presents to the emergency room on 03/18/2024 with fevers up to 103 degrees, congestion and decreased
urination. The patient had been to her PCP a couple days prior to arrival where a 3 cm flexible clear plastic object was found in the back of her oropharynx. The patient attends a day program where they noticed her to be drooling. She had
decreased oral intake over the past couple days prior to being seen by PCP where they found this foreign object. Patient is being treated for urinary tract infection as well as pneumonitis with recent possible aspiration episode last week. Patient
had speech-language pathology evaluation with video swallow evaluation. There was question of esophageal web noted we are asked to evaluate for the same.
Impression:
Fever
Possible UTI
Pneumonitis with recent possible aspiration episode (foreign body found in patient's oropharynx by PCP prior to ER)
Recurrent UTIs
Possible esophageal web seen on video swallow exam
Cerebral palsy, nonverbal
Seizure disorder
Plan:
-Patient tolerating pur�ed diet with thickened liquids, at baseline per father
-Per him does not exhibit any symptoms or behaviors eliciting discomfort or difficulty
-Patient with low O2 sats, if EGD was decided on would prefer performing as an outpatient in the future
-Currently at this time father wishes to hold off. He was given our card with the name of Dr. Anand who was at patient's bedside discussing with father.
-If he chooses to follow-up as an outpatient he may do so. Otherwise diet as per recommended by BROKE BEATER.
-
-
Thank you for consultation and allowing me to participate in the patient's care. Please call the optimization manager GI physician during the after hours with any questions or concerns.
--- NOTE | 2024-03-20 18:15 | PTCARENOTE ---
Addendum entered by Shalonda Flynn 03/20/24 18:49:
Orders placed by provider. IVF hung as ordered.
Original Note:
Pt hypotensive with SBP in the 70's. TT to cross coverage, awaiting further orders.
--- NOTE | 2024-03-20 18:22 | W.PN.UPDATE ---
Update Note
Progress Note Update
Persistently hypertensive, systolics in the 70s. Mentation remains stable. Will provide 2 L LR bolus now, follow-up venous blood gas, lactate. MRSA swab ordered. If inadequate response to fluids, add on vasopressors. At that point, would add
vancomycin
[2024-03-20] MEDS: LR 1000 IV ×2 (18:30→20:27)
[2024-03-20] MEDS: LOVENOX 40 MG SC (18:31)
[2024-03-20] MEDS: SENNA SYRUP 8.80000000000000071 MG PO (18:32)
[2024-03-20] MEDS: FEMARA 2.5 MG PO (18:32)
[2024-03-20] MEDS: SINGULAIR 10 MG PO (18:32)
[2024-03-20 19:07] LABS: Venous Blood Gas B.E. 1.3 mmol/L (-4 to +4); Venous Blood Gas HCO3 27.2 mmol/L (22-27); Venous Blood Gas O2 Sat % 99.3 %; Venous Blood Gas pCO2 47 mmHg (35-48); Venous Blood Gas pH 7.37 (7.32-7.43); Venous Blood Gas pO2 121 mmHg (30-50)
[2024-03-20 19:18] LABS: Lactic Acid 2.2 mmol/L (0.7-2.0)
[2024-03-21] VITALS (15 sets, daily range): BP systolic 78–133; BP diastolic 53–85
[2024-03-21 06:15] LABS: Mean Corp Hgb Conc. 36.1 g/dL (33.0-37.0); Mean Corpuscular Hgb 29.5 pg (27.0-31.0); Mean Corpuscular Volume 81.8 fL (81.0-99.0); Mean Platelet Volume 10.7 fL (7.4-10.4); Platelet Count 209 10^3/uL (130-400); Red Cell Dist. Width 12.9 % (11.5-14.5); White Blood Cell Count 4.5 10^3/uL (4.8-10.8)
[2024-03-21 06:27] LABS: Lactic Acid 0.9 mmol/L (0.7-2.0)
[2024-03-21 06:50] LABS: Blood Urea Nitrogen 12 mg/dl (7-17); Calcium 9.2 mg/dl (8.4-10.2); Carbon Dioxide 24 mmol/L (22-30); Chloride 106 mmol/L (98-107); Estimated Creatinine Clearance 93 ml/min; Glucose 96 mg/dl (70-99); Magnesium 1.7 mg/dl (1.6-2.3); Phosphorus 3.4 mg/dl (2.5-4.5); Potassium 4.1 mmol/L (3.5-5.1); Sodium 136 mmol/L (135-145); eGFR > 60.00
--- NOTE | 2024-03-21 07:47 | W.PN.HOSP.TC ---
Today's Communication/Plan
-
Increase midodrine to 15 mg 3 times daily, her home dose
Finishing course of IV zosyn today
Assessment / Plan
Assessment / Plan
A/P: Patient is a 48y F with PMH significant for cerebral palsy, seizure disorder and history of ovarian cancer who presents to ED for evaluation of fever, congestion and poor oral intake.
Sepsis
- Stable hemodynamics. Afebrile today. Clinically improved. Finishing her course of Zosyn today, monitor as per ID
Bilateral Pneumonia
- CT scan with bilateral ground glass opacities c/w pneumonia.
- Difficult historian due to cerebral palsy and difficult to assert if any respiratory symptoms. Mother did bring up to our attention that patient had had a small plastic object lodged in the posterior pharynx and she was drooling. It was
apparently removed by PCP. History of drooling enlargement of a foreign body in the pharynx swallowing issues cannot be excluded and the pneumonia can be an aspirational issue.
- 5/ VSE shows penetration, esophageal web, SPL recommends pur�ed diet with mildly thickened liquids
- COVID and influenza are negative in the ED.
- Finishing her course of Zosyn today, monitor as per ID
Esophageal web with possible dysphagia
-Appreciate GI input, family wishes to hold off on endoscopy
Acute on chronic hypotension
-Status post 2 L bolus, increase midodrine back to home dose 15 mg 3 times daily
-Monitor off IV fluids
Persistent / Recurrent UTI?
- UA in the ED today with pos WBC and bacteria, but negative nitrites.
- Patient has completed two 10 day courses of antibiotics + two days of levofloxacin thus far.
- Would be interested in seeing culture data from prior urine testing and will send to Dr. Courtney for these results.
- Finishing antibiotics as above
- ID following
Cerebral Palsy
Seizure Disorder
- Stable. Family notes that patient has frequent - though mild - breakthrough seizures.
- Continue current AED regimen without changes.
- Follow for any persistent seizure activity.
History of Ovarian Cancer
- s/p surgery and then hormonal therapy.
- Has completed treatment x 5 years.
- Remains on letrozole at family preference.
Functional quadriplegia due to cerebral palsy
- Dependent on family for all care
DVT Prophylaxis: Lovenox
Code Status: Full
Total time spent to see the patient on the floor, examine the patient, review data and lab results, discuss treatment plan with patient, nursing staff around 50 minutes.
Physical Exam
General: Appears chronically debilitated, no acute distress
HEENT: Normocephalic, Atraumatic, EOMI, MMM
Respiratory: Clear to Auscultation bilaterally
Cardiac: Normal S1/S2, Regular Rate and Rhythm
GI: Soft, Nontender, Nondistended, Normal Bowel Sounds
Extremities: No Clubbing, Cyanosis, or Edema
Neuro: Nonverbal, nonmobile
Anticipated Discharge: Within 24 hours
Subjective/Interval History
-
Date of Service: March 21, 2024
Patient hypotensive yesterday at 6 PM, systolic blood pressure in the 70s. Family denies vomiting, family reports she was eating fine. No fever.
Objective Data
-
Labs:
Laboratory Results
03/21/24
05:59
WBC 4.5 L
Hgb 13.0
Hct 36.0 L
Plt Count 209
Sodium 136
Potassium 4.1
Chloride 106
Carbon Dioxide 24
BUN 12
Creatinine 0.5 L
Glucose 96
Calcium 9.2
Vital Signs:
Vital Signs
Temp Pulse Resp BP Pulse Ox
99.0 F 82 27 126/85 90
03/21/24 04:17 03/21/24 06:06 03/21/24 06:06 03/21/24 06:06 03/21/24 06:00
I&O
03/20/24 03/21/24 03/22/24
06:59 06:59 06:59
Intake Total 1215 / 1215 900 / 900
Balance 1215 / 1215 900 / 900
--- NOTE | 2024-03-21 09:48 | PN.CDI ---
CDI
- -
CDI:
Physician Documentation Request
Admit Date: 03/18/24 01:15
Dear Doctor Do,
Patient is admitted with sepsis. History of cerebral palsy and related TBI.
03/18 PT note states 'spoke with patient's brother who reports that patient was dependent for all transfers prior to hospitalization. no skilled PT goals or needs at this time'
03/18 OT note states 'Per family who was in room, pt is dependent for all care at baseline. Skilled OT services not indicated at this time.'
Please clarify in your note the appropriate diagnosis related to the above clinical indicators:
Functional quadriplegia (complete immobility due to severe physical disability or frailty)
Weakness
Other
Quadriparesis/Quadriplegia
Type
Complete
Incomplete
Unable to determine
Level
C1-C4
C5-C7
Unable to determine
Etiology
CVA, cerebral palsy,
injury, etc.
Functional quadriplegia
complete immobility due
severe physical
disability or frailty
Use of terms such as suspected, likely, concern for, or probable (associated with a specific diagnosis that is being evaluated, monitored, or treated as if it exists) are acceptable and can be coded in the inpatient setting, when documented at the
time of discharge.
Thank you,
Mary Ragland RN, BSN
CDI Specialist
tiger text
Please use your independent medical judgment in providing your response.
[2024-03-21] MEDS: ProAmatine 15 MG PO ×2 (10:04→18:03)
[2024-03-21] MEDS: ONFI 10 MG PO ×2 (10:04→20:49)
[2024-03-21] MEDS: TRILEPTAL 600 MG PO ×2 (10:04→20:49)
--- NOTE | 2024-03-21 10:16 | W.PN.ID1 ---
Date of Service
Date of Service: March 21, 2024
Today's Communication
CHORUS MASTER on midodrine for chronic hypotension; today normotensive
- completed course of zosyn, suggest monitor clinically x24 hrs
Assessment / Plan
Fever - resolved
Possible UTI - resolved
Pneumonitis - recent possible aspiration episode; note negative procalcitonin early this admission
Recurrent UTIs
Chronic hypotension - CHORUS MASTER on midodrine
Leukopenia
- blood cultures x2 in progress
- MRSA screen pending
- urine culture negative
- minimal cough, nonproductive
- completed course of zosyn, suggest monitor clinically x24 hrs
Chief Complaint
-: UTI
Subjective / Review of Systems
afebrile
overnight persistently hypotensive - got 2L bolus
today BP remains stable
note chronic hypotension on CHORUS MASTER midodrine
minimal leukopenia today
cr 0.5
Vital Signs / Physical Exam
Vital Signs
Vital Signs
Temp Pulse Resp BP Pulse Ox
99.0 F 80 18 107/66 95
03/21/24 04:17 03/21/24 10:00 03/21/24 10:00 03/21/24 08:00 03/21/24 10:00
Physical Exam
Constitutional: Comfortable, Chronically Ill and Non-toxic
Cardiovascular: Regular Rate and S1/S2; Negative Murmur or Rub
Pulmonary: Clear and Symmetric; Negative Wheezes or Rales
Gastrointestinal: Soft, Non Tender, Non Distended and Normal Bowel Sounds
Genito-Urinary: Negative Suprapubic Tenderness
Skin: Warm and Dry; Negative Rash or Jaundice
Objective Data
Lab Data
Lab Results
03/21/24 05:59
03/21/24 05:59
PT 15.2 Sec (11.4-14.6) H 03/17/24 20:42
INR 1.22 03/17/24 20:42
Estimated Creat Clear 93 ml/min 03/21/24 05:59
Lactic Acid 0.9 mmol/L (0.7-2.0) 03/21/24 05:58
Total Bilirubin 0.6 mg/dl (0.2-1.3) 03/17/24 20:42
AST 48 U/L (14-36) H 03/17/24 20:42
ALT 21 U/L (0-35) 03/17/24 20:42
Alkaline Phosphatase 121 U/L (38-126) 03/17/24 20:42
Most recent labs reviewed.
Micro Results:
03/17/24 20:42 Blood Culture - Preliminary
Blood/Venous No Growth in 72 hours- Final report to follow
03/17/24 20:42 Blood Culture - Preliminary
Blood/Venous No Growth in 72 hours- Final report to follow
03/20/24 18:59 MRSA Screen - Pending
Nose
03/17/24 20:42 Urine Culture - Final
Urine NO GROWTH
03/17/24 20:42 Streptococcus pneumoniae Antigen (M - Final
Urine Negative for Streptococcus pneumoniae antigen.
A negative result does not exclude infection with
Streptococcus pneumoniae. Clinical correlation is
recommended.
03/17/24 21:13 Influenza Types A & B ([facility]) - Final
Nasal Swab Negative for Influenza A & B, NAAT
Negative results must be combined with clinical observations
and patient history.
Nucleic Acid Amplification test (NAAT)performed on the
[employer] platform.
[2024-03-21] MEDS: FEMARA 2.5 MG PO ×2 (18:03)
[2024-03-21] MEDS: SENNA SYRUP 8.80000000000000071 MG PO (18:03)
[2024-03-21] MEDS: SINGULAIR 10 MG PO (18:05)
[2024-03-21] MEDS: LOVENOX 40 MG SC (18:05)
[2024-03-21] MEDS: LR 1000 IV (19:33)
[2024-03-21] MEDS: NON-FORMULARY ITEM 1 MG PO (20:49)
[2024-03-21] MEDS: LR IV (20:51)
[2024-03-22] VITALS (7 sets, daily range): BP systolic 101–129; BP diastolic 61–84
[2024-03-22 08:04] LABS: Hematocrit 36.4 % (37.0-47.0); Hemoglobin 12.4 g/dL (12.0-16.0); Mean Corp Hgb Conc. 34.1 g/dL (33.0-37.0); Mean Corpuscular Hgb 29.5 pg (27.0-31.0); Mean Corpuscular Volume 86.7 fL (81.0-99.0); Mean Platelet Volume 11.2 fL (7.4-10.4); Platelet Count 198 10^3/uL (130-400); Red Cell Dist. Width 13.2 % (11.5-14.5); White Blood Cell Count 3.8 10^3/uL (4.8-10.8)
[2024-03-22 08:15] LABS: Blood Urea Nitrogen 11 mg/dl (7-17); Calcium 9.5 mg/dl (8.4-10.2); Carbon Dioxide 25 mmol/L (22-30); Chloride 107 mmol/L (98-107); Estimated Creatinine Clearance 93 ml/min; Glucose 95 mg/dl (70-99); Potassium 3.7 mmol/L (3.5-5.1); Sodium 138 mmol/L (135-145); eGFR > 60.00
[2024-03-22] MEDS: ProAmatine 15 MG PO ×2 (08:53→12:46)
[2024-03-22] MEDS: ONFI 10 MG PO (08:53)
[2024-03-22] MEDS: TRILEPTAL 600 MG PO (08:53)
--- NOTE | 2024-03-22 11:36 | W.PN.ID1 ---
Date of Service
Date of Service: March 22, 2024
Today's Communication
- remains well off of zosyn stable for dc from ID perspective
Assessment / Plan
Fever - resolved
Possible UTI - resolved
Pneumonitis - recent possible aspiration episode; note negative procalcitonin early this admission
Recurrent UTIs
Chronic hypotension - [employer]IAN on midodrine
Leukopenia
- blood cultures x2 in progress
- MRSA screen pending
- urine culture negative
- minimal cough, nonproductive
- remains well off of zosyn stable for dc from ID perspective
Chief Complaint
-: UTI
Subjective / Review of Systems
afebrile
bp now stable
minimal leukopenia
cr stable
blood culture no growth to date
Vital Signs / Physical Exam
Vital Signs
Vital Signs
Temp Pulse Resp BP Pulse Ox
98.4 F 86 18 110/76 95
03/22/24 07:50 03/22/24 10:00 03/22/24 10:00 03/22/24 10:00 03/22/24 08:08
Physical Exam
Constitutional: No Acute Distress and Other (tooth grinding noted)
Cardiovascular: Regular Rate and S1/S2; Negative Murmur or Rub
Pulmonary: Clear and Symmetric; Negative Wheezes or Rales
Gastrointestinal: Soft, Non Tender, Non Distended and Normal Bowel Sounds
Skin: Warm and Dry; Negative Rash or Jaundice
Objective Data
Lab Data
Lab Results
03/22/24 07:32
03/22/24 07:32
PT 15.2 Sec (11.4-14.6) H 03/17/24 20:42
INR 1.22 03/17/24 20:42
Estimated Creat Clear 93 ml/min 03/22/24 07:32
Lactic Acid 0.9 mmol/L (0.7-2.0) 03/21/24 05:58
Total Bilirubin 0.6 mg/dl (0.2-1.3) 03/17/24 20:42
AST 48 U/L (14-36) H 03/17/24 20:42
ALT 21 U/L (0-35) 03/17/24 20:42
Alkaline Phosphatase 121 U/L (38-126) 03/17/24 20:42
Most recent labs reviewed.
Micro Results:
03/20/24 18:59 MRSA Screen - Final
Nose No Methicillin Resistant Staphylococcus aureus isolated.
03/17/24 20:42 Blood Culture - Preliminary
Blood/Venous No Growth in 4 days- Final report to follow
03/17/24 20:42 Blood Culture - Preliminary
Blood/Venous No Growth in 4 days- Final report to follow
03/17/24 20:42 Urine Culture - Final
Urine NO GROWTH
03/17/24 20:42 Streptococcus pneumoniae Antigen (M - Final
Urine Negative for Streptococcus pneumoniae antigen.
A negative result does not exclude infection with
Streptococcus pneumoniae. Clinical correlation is
recommended.
03/17/24 21:13 Influenza Types A & B ([facility]) - Final
Nasal Swab Negative for Influenza A & B, NAAT
Negative results must be combined with clinical observations
and patient history.
Nucleic Acid Amplification test (NAAT)performed on the
[employer] platform.
Care Review
Plan reviewed with: Physician (Dr Ibanez)
--- NOTE | 2024-03-22 12:29 | W.PN.HOSP.TC ---
Today's Communication/Plan
-
Medically stable and cleared by ID for discharge
Assessment / Plan
Assessment / Plan
A/P: Patient is a 48y F with PMH significant for cerebral palsy, seizure disorder and history of ovarian cancer who presents to ED for evaluation of fever, congestion and poor oral intake.
Fever
- Afebrile today. Blood cultures negative to date, urine cultures negative, status post course of Zosyn, cleared by ID for discharge today
Pneumonitis
- CT scan with bilateral ground glass opacities c/w pneumonia.
- Difficult historian due to cerebral palsy and difficult to assert if any respiratory symptoms. Mother did bring up to our attention that patient had had a small plastic object lodged in the posterior pharynx and she was drooling. It was
apparently removed by PCP. History of drooling enlargement of a foreign body in the pharynx swallowing issues cannot be excluded and the pneumonia can be an aspirational issue.
- 5/6 VSE shows penetration, esophageal web, SPL recommends pur�ed diet with mildly thickened/nectar thickened liquids
- COVID and influenza are negative in the ED.
- Status post course of Zosyn, cleared by ID for discharge today
Esophageal web with possible dysphagia
-Appreciate GI input, family wishes to hold off on endoscopy. She is tolerating her diet
Acute on chronic hypotension
-Status post 2 L bolus, increased midodrine to 15 mg 3 times daily
-Monitor off IV fluids
Persistent / Recurrent UTI?
- UA in the ED today with pos WBC and bacteria, but negative nitrites.
- Patient has completed two 10 day courses of antibiotics + two days of levofloxacin thus far.
- Would be interested in seeing culture data from prior urine testing and will send to Dr. Courtney for these results.
- Finished antibiotics as above
- ID following
Cerebral Palsy
Seizure Disorder
- Stable. Family notes that patient has frequent - though mild - breakthrough seizures.
- Continue current AED regimen without changes.
- Follow for any persistent seizure activity.
History of Ovarian Cancer
- s/p surgery and then hormonal therapy.
- Has completed treatment x 5 years.
- Remains on letrozole at family preference.
Functional quadriplegia due to cerebral palsy
- Dependent on family for all care
DVT Prophylaxis: Lovenox
Code Status: Full
Physical Exam
General: Appears chronically debilitated, no acute distress
HEENT: Normocephalic, Atraumatic, EOMI, MMM
Respiratory: Clear to Auscultation bilaterally
Cardiac: Normal S1/S2, Regular Rate and Rhythm
GI: Soft, Nontender, Nondistended, Normal Bowel Sounds
Extremities: No Clubbing, Cyanosis, or Edema
Neuro: Nonverbal, nonmobile
Anticipated Discharge: Today
Subjective/Interval History
-
Date of Service: March 22, 2024
No acute events overnight. Patient at baseline mentation. Patient is eating fine. No vomiting. No fever.
Objective Data
-
Labs:
Laboratory Results
03/22/24
07:32
WBC 3.8 L
Hgb 12.4
Hct 36.4 L
Plt Count 198
Sodium 138
Potassium 3.7
Chloride 107
Carbon Dioxide 25
BUN 11
Creatinine 0.6
Glucose 95
Calcium 9.5
Vital Signs:
Vital Signs
Temp Pulse Resp BP Pulse Ox
98.4 F 86 18 110/76 95
03/22/24 07:50 03/22/24 10:00 03/22/24 10:00 03/22/24 10:00 03/22/24 08:08
I&O
03/21/24 03/22/24 03/23/24
06:59 06:59 06:59
Intake Total 900 / 900 1725 / 1725 240 / 240
Balance 900 / 900 1725 / 1725 240 / 240
--- NOTE | 2024-03-22 12:29 | W.DCSUMMARY ---
Discharge Summary
Discharge Data
Date of Admission: 03/18/24
Date of Discharge: 03/22/24
-
Pending Results: No
Hospital Course
Discharge diagnosis:
Fever
Aspiration pneumonitis
Esophageal web with concern for dysphagia
Acute on chronic hypotension
History of your recurrent urinary tract infections
Pyuria
Cerebral palsy
Seizure disorder
History of ovarian cancer
Functional quadriplegia
Consults: ID, GI
CXR:
Bilateral patchy lung opacities, with appearance compatible with bilateral pneumonia. These are probably slightly improved compared to CT of the chest abdomen and pelvis from March 17, 2024
Hospital course:
48-year-old female with a past medical history of cerebral palsy, functional quadriplegia, recurrent urinary tract infections, and chronic hypotension on midodrine was admitted for fever, congestion, and poor oral intake. Family reports that patient
has taken 3 courses of antibiotics in the last month for urinary tract infection. She was recently started on levofloxacin 500 mg daily, and has taken 2 doses prior to arrival. Patient was seen in conjunction with ID, and treated with IV Zosyn.
Procalcitonin was negative. Chest x-ray was negative. Urine analysis showed pyuria. Urine culture was negative. ID suspects she has aspiration pneumonitis.
Patient was seen by SPL, video swallow esophagram shows penetration, but was negative for aspiration. She was found to have an esophageal web. She was seen in conjunction with GI, endoscopy was deferred since parents state that she was eating
fine. She tolerated her pur�ed diet with nectar thickened liquids.
Patient completed her course of IV Zosyn. She was monitored off of antibiotics for another day. She remained afebrile. She is on chronic midodrine 15 mg twice a day for hypotension. She did have a course of worsening hypotension. Her midodrine
was increased to 15 mg 3 times a day.
Family states that she is tolerating her pur�ed diet with nectar thickened liquids. Family also states she is at baseline mentation. Patient's medical conditions have been optimized. She has been cleared by ID for discharge.
Disposition: Home self-care
Discharge planning: Required 42 minutes
Discharge Plan
-
Patient Disposition: Home (Routine Discharge)
Discharge Diagnosis/Procedures: Fever, pneumonitis, possible urinary tract infection, chronic hypotension, leukopenia, cerebral palsy
Condition: Fair
Diet: Other diet
Additional Diets: Pur�ed diet with nectar thickened liquids
Activity: As tolerated
Referrals:
Timbo Courtney MD [Family Provider] - in one week
Prescriptions:
Continued
docusate sodium 50 mg/5 mL Liquid
100 mg PO BIDPRN PRN (Reason: constipation)
tiagabine 4 mg Tablet
4 mg PO HS
Patient Comments:
03/23/2024, crushed in applesauce.
oxcarbazepine [Trileptal] 600 mg tablet
600 mg PO BID
Patient Comments:
03/23/2024, crushed in applesauce.
montelukast [Singulair] 10 mg Tablet
10 mg PO HS
Patient Comments:
03/23/2024, crushed in applesauce.
clobazam [Onfi] 10 mg Tablet
10 mg PO BID
Patient Comments:
03/23/2024, crushed in applesauce.
nitrofurantoin macrocrystal 50 mg Capsule
50 mg PO DAILY
Patient Comments:
03/23/2024, crushed in applesauce.
polyethylene glycol 3350 [Miralax] 17 gram Powder In Packet
17 g PO DAILY PRN (Reason: constipation)
cetirizine [Zyrtec] 10 mg Tablet
10 mg PO DAILY PRN (Reason: allergies)
Patient Comments:
03/23/2024, crushed in applesauce.
sennosides [senna] 8.8 mg/5 mL Syrup
17.6 mg PO HSPRN PRN (Reason: constipation)
ascorbic acid (vitamin C) [Vitamin C] 500 mg Tablet
500 mg PO DAILY
Patient Comments:
03/23/2024, crushed in applesauce.
letrozole 2.5 mg Tablet
2.5 mg PO HS
Patient Comments:
03/23/2024, crushed in applesauce.
fluticasone propionate 50 mcg/actuation [place],Suspension
2 spray INTRANASAL DAILY
Visbiome 112.5 billion cell Capsule
1 cap PO DAILY
Patient Comments:
03/23/2024, crushed in applesauce.
Discontinued
midodrine 5 mg Tablet
15 mg PO BID
No Action
acetaminophen [Tylenol Extra Strength] 500 mg Tablet
1,000 mg PO Q6H PRN (Reason: mild pain)
Patient Comments:
03/23/2024, crushed in applesauce.
midodrine 5 mg tablet
15 mg PO BID
Patient Comments:
03/23/2024, crushed in applesauce.
Discharge Orders:
Discharge Patient (As Directed); Ordered 03/22/24
Ordered By: Derrell Albarran
Discharge Date and Time
Discharge Date/Time: 03/22/24 13:45
Print Language: GERMAN
--- NOTE | 2024-03-22 13:45 | PTCARENOTE ---
Pt for d/c home. Instructions and medications reviewed with parents (pt's caregivers). IV and tele monitor removed. Home medication returned to pt's mother. Belongings collected from room. Transferred into home WC and d/c home with parents.
--- NOTE | 2024-03-22 16:37 | CM ---
Discharged home by nursing and CM not notified. Patient not seen by CM prior to d/c today.
== END 2024-03-22 13:45 | disposition home or self-care (01) | DRG 871 ==
LOC: IMU 01:15
PROVIDERS: Internal Medicine; Physician Assistant; ADMITTING PHYSICIAN Hospitalist; ATTENDING PHYSICIAN Family Medicine; CONSULT PHYSICIAN Internal Medicine Gastroenterology; CONSULT PHYSICIAN Student in an Organized Health Care Education/Training Program; EMERGENCY PHYSICIAN Emergency Medicine; FAMILY PHYSICIAN Family Medicine
DX: A41.9 Sepsis, unspecified organism (principal); J69.0 Pneumonitis due to inhalation of food and vomit; Q39.4 Esophageal web; R53.2 Functional quadriplegia; N39.0 Urinary tract infection, site not specified; G80.8 Other cerebral palsy; G40.909 Epilepsy, unspecified, not intractable, without status epilepticus; I95.89 Other hypotension; Z11.52 Encounter for screening for COVID-19
CPT/HCPCS: 51701; 71260; 74177; 74230; 80048; 80053; 81003; 81015; 82805; 83605; 83735; 84100; 84145; 84443; 85025; 85027; 85610; 87040; 87070; 87086; 87502; 87811; 87899; 92526; 92610; 92611; 93005; 96365; 96375; 99285; Q9967

== ENCOUNTER 2024-03-23 22:37 | Inpatient (IN) | payer MEDICARE, OTHER, SELFPAY ==
[2024-03-23] VITALS (39 sets, daily range): BP systolic 58–128; BP diastolic 32–104
[2024-03-23] MEDS: TYLENOL/FEVERALL 650 MG RECTAL (18:53)
[2024-03-23 18:55] LABS: Glucose - Point of Care 119 mg/dl (70-99)
--- NOTE | 2024-03-23 19:09 | ED.GENMED ---
History of Present Illness
General
Chief Complaint: Fever
Source: family and previous hospital records
Exam Limitations: altered mental status
Time Seen by Provider: 03/23/24 19:00
Nursing documentation reviewed up to this point in time: agreed with
Travel History
Have you had any contact with someone who has COVID-19?: Unable to Answer
Do you have any symptoms of coronavirus? Fever > 100 degrees, chills, cough, shortness of breath, sore throat, loss of taste or smell, muscle aches, or headache?: Unable to Answer
History of Present Illness
History of Present Illness:
48-year-old female recently admitted with aspiration and UTI discharged 2 days ago presents with fever lethargy low blood pressure pulse ox 74% on room air history obtained through brother patient is wheelchair-bound nonverbal he noticed her with
increased seizure activity today felt warm color was off
No episodes of vomiting per family, family 'grinds' her food reportedly patient does not have a feeding tube
Past History
Past History
ED Past Medical History: Seizures and Other (Cerebral palsy)
Social History
Tobacco: Non-smoker
Alcohol: None
Drug: None
Personal: Single
Living: with family
Employment: Not employed
Review of Systems
Review of Systems
Other source history: family
Constitutional: Reports fever and fatigue
Respiratory: Reports trouble breathing
Phy Exam
Physical Exam
Physical Exam:
Physical Exam
General: Ill-appearing female febrile hypoxic
Neck: Lips are slightly dry
Heart: Tachycardia
Lungs: Faint rhonchi
Abdomen: Not tender
Neuro: Minimally respond
Skin: no rash
Psychiatric: Unable to
Extremities: Palpable radial pulse
Course
Orders/Labs/Results
Orders:
Orders
03/23/24 18:47
Electrocardiogram (*1) Urgent
Reason for Study: Other
Other Reason for Exam: Possible Sepsis
EKG- Treatment ONCE
O2 Therapy [RESP] Urgent
Titrate/Wean O2 to maintain O2 sat greater than (%): 93
Special Instructions: TO MAINTAIN CONTINUOUS O2 SATS > OR = 93%
03/23/24 18:50
0.9% Sodium Chloride 1000 ml [Nss] 1,000 ml IV BOLUS
Acetaminophen [Tylenol/Feverall] 650 mg RECTAL NOW STA
03/23/24 19:02
CR Chest Portable - 1 View Urgent
Comment:
Reason For Exam: fever
Reason Study Needs to be Portable: Unable to Transport
03/23/24 19:07
Straight cath- Treatment ONCE
Urinalysis Reflex To Culture Urgent
0.9% Sodium Chloride 1000 ml [Nss] 2,000 ml IV BOLUS
Piperacillin/Tazo 4.5 Gram [Zosyn] 4.5 gram in 100 ml IV NOW
03/23/24 19:08
Add On- LAB Urgent
Tests Added?: cortisol, tsh
03/23/24 19:22
Influenza A+B Rapid Molecular Urgent
[facility] Source: Nasal Swab
Specimen Description:
03/23/24 19:55
ABG [Arterial Blood Gas] Urgent
%Oxygen/Room Air: nrb
03/23/24 20:32
Complete Blood Count/With Diff Urgent
Comprehensive Metabolic Panel Urgent
Lactic Acid Q4H
Comment: ON ICE, CANCEL 2ND ORDER IF FIRST LACTIC ACID LEVEL <2
Blood Culture Q30M
MAN[place] Source: Blood/Venous
Specimen Description:
Comment: FROM 2 SEPARATE SITES
03/23/24 20:36
Blood Culture Q30M
[facility] Source: Blood/Venous
Specimen Description:
Comment: FROM 2 SEPARATE SITES
03/23/24 20:44
Procalcitonin Urgent
PCT Algorithmm Indication: Sepsis
03/23/24 23:00
Lactic Acid Q4H
Comment: ON ICE, CANCEL 2ND ORDER IF FIRST LACTIC ACID LEVEL <2
Abnormal Lab Results
03/23/24 03/23/24 03/23/24
18:53 19:55 20:32
Hct 36.1 L %
(37.0-47.0)
MPV 10.9 H fL
(7.4-10.4)
Abs Immat Gran (auto) 0.1 H 10^3/uL
(0-0.05)
Absolute Neuts (auto) 7.9 H 10^3/uL
(1.4-6.5)
Absolute Lymphs (auto) 0.3 L 10^3/uL
(1.2-3.4)
Immature Gran % 0.6 H %
(0-0.5)
Neutrophils % 91.2 H %
(42.2-75.2)
Lymphocytes % 3.7 L %
(20.5-51.1)
pH 7.52 H
(7.35-7.45)
pCO2 30 L mmHg
(32-35)
pO2 178 H mmHg
(83-108)
ABG O2 Sat (Measured) 99.8 H %
(94-98)
Chloride 109 H mmol/L
(98-107)
BUN 18 H mg/dl
(7-17)
Glucose 129 H mg/dl
(70-99)
Calcium 11.0 H D mg/dl
(8.4-10.2)
AST 122 H U/L
(14-36)
ALT 65 H U/L
(0-35)
Alkaline Phosphatase 140 H U/L
(38-126)
Albumin 3.4 L g/dl
(3.5-5.0)
POC Glucose 119 H mg/dl
(70-99)
03/23/24 20:32
03/23/24 20:32
Vital Signs
Initial and Last Documented VS:
Initial Vital Signs
Temp Pulse Resp BP Pulse Ox
104.5 F H 116 34 97/64 75
03/23/24 18:41 03/23/24 18:41 03/23/24 18:41 03/23/24 18:41 03/23/24 18:41
Last Documented Vital Signs
Temp Pulse Resp BP Pulse Ox
101.9 F H 116 34 97/64 100
03/23/24 20:56 03/23/24 18:41 03/23/24 18:41 03/23/24 18:41 03/23/24 19:00
MDM/Problems Addressed
Differential Diagnosis Includes:
Aspiration sepsis UTI bacteremia
MDM/Problems Addressed:
Fever confusion hypoxia
Chronic conditions affecting care:
Seizure cerebral palsy
*Radiology
Radiology exam reviewed: preliminary read by ED provider
*Pulse Oximetry
Patient hypoxic: no
*EKG
Interpreted by ED Provider?: Yes
Interpretation: normal
Comparison EKG: no comparison EKG present
Heart Rate: 100
Rate: normal
Rhythm: sinus
Ischemia: no ischemia
*Hazardous Waste Technician Interpretation
Rate: tachycardiac
Interpretation: abnormal
Heart Rate: 108
Rhythm: sinus
*Critical Care Note
Total Time (30-74mins, 75-104mins- exclusive of procedures): 32
Data Reviewed
Review of Other/Old Records Reveals: Labs, Records, Testing, Progress Notes and Discharge Summary
Source: records and family
Update Note
Update Note:
Update IV access has been obtained, volume gestations been ordered antibiotics have been ordered prior records reviewed has chronic hypotension on midodrine recently admitted with a similar episode
Labs are reassuring does have high fever and hypoxia
Will require admission
ED Attending Note
-
Portions of this chart may have been created with voice recognition software.� Occasional wrong word or��sound alike� substitutions may have occurred due to the inherent limitations of voice recognition software.
Discharge Plan
Departure
Patient Disposition: Admit
Date of Disposition: 03/23/24
Time of Disposition: 21:04
Admit to: IMU
Presentation/result/management discussed w/ accepting MD/DO: Hospitalist
Patient with high blood pressure during this ER visit?: No
Condition: Serious
Discharge Problem:
Sepsis syndrome
Prescriptions:
No Action
docusate sodium 50 mg/5 mL Liquid
100 mg PO BIDPRN PRN (Reason: constipation)
tiagabine 4 mg Tablet
4 mg PO HS
Patient Comments:
03/23/2024, crushed in applesauce.
oxcarbazepine [Trileptal] 600 mg tablet
600 mg PO BID
Patient Comments:
03/23/2024, crushed in applesauce.
montelukast [Singulair] 10 mg Tablet
10 mg PO HS
Patient Comments:
03/23/2024, crushed in applesauce.
clobazam [Onfi] 10 mg Tablet
10 mg PO BID
Patient Comments:
03/23/2024, crushed in applesauce.
nitrofurantoin macrocrystal 50 mg Capsule
50 mg PO DAILY
Patient Comments:
03/23/2024, crushed in applesauce.
polyethylene glycol 3350 [Miralax] 17 gram Powder In Packet
17 g PO DAILY PRN (Reason: constipation)
cetirizine [Zyrtec] 10 mg Tablet
10 mg PO DAILY PRN (Reason: allergies)
Patient Comments:
03/23/2024, crushed in applesauce.
sennosides [senna] 8.8 mg/5 mL Syrup
17.6 mg PO HSPRN PRN (Reason: constipation)
ascorbic acid (vitamin C) [Vitamin C] 500 mg Tablet
500 mg PO DAILY
Patient Comments:
03/23/2024, crushed in applesauce.
letrozole 2.5 mg Tablet
2.5 mg PO HS
Patient Comments:
03/23/2024, crushed in applesauce.
fluticasone propionate 50 mcg/actuation [place],Suspension
2 spray INTRANASAL DAILY
Visbiome 112.5 billion cell Capsule
1 cap PO DAILY
Patient Comments:
03/23/2024, crushed in applesauce.
acetaminophen [Tylenol Extra Strength] 500 mg Tablet
1,000 mg PO Q6H PRN (Reason: mild pain)
Patient Comments:
03/23/2024, crushed in applesauce.
midodrine 5 mg tablet
15 mg PO BID
Patient Comments:
03/23/2024, crushed in applesauce.
Referrals:
Timbo Courtney MD [Family Provider] -
Interventions
Interventions:
*Risk Screen - Suicide Last Done: 03/23/24 18:41
*General Assessment Last Done: 03/23/24 18:41
*Neglect/Abuse Screening Last Done: 03/23/24 18:41
*ED COVID-19 Vaccine History Last Done: 03/23/24 20:16
ED- Neurological Assessment Last Done: 03/23/24 19:30
ED-Skin Assessment Last Done: 03/23/24 19:30
Discharge Date and Time
Print Language: MALTESE
[2024-03-23 20:06] LABS: B.E. 2.4 mmol/L; HCO3 24.5 mmol/L (21-28); O2 Saturation % 99.8 % (94-98); PCO2 30 mmHg (32-35); PO2 178 mmHg (83-108); pH 7.52 (7.35-7.45)
[2024-03-23 20:41] LABS: % Basophils 0.3 % (0-2); % Eosinophils 0.5 % (0-6); % Immature Granulocytes 0.6 % (0-0.5); % Lymphocytes 3.7 % (20.5-51.1); % Monocytes 3.7 % (1.7-9.3); % Neutrophils 91.2 % (42.2-75.2); Absolute Immature Granulocytes 0.1 10^3/uL (0-0.05); Absolute Lymphocytes 0.3 10^3/uL (1.2-3.4); Absolute Monocytes 0.3 10^3/uL (0.1-0.6); Absolute Neutrophils 7.9 10^3/uL (1.4-6.5); Hematocrit 36.1 % (37.0-47.0); Hemoglobin 12.7 g/dL (12.0-16.0); Mean Corp Hgb Conc. 35.2 g/dL (33.0-37.0); Mean Corpuscular Hgb 29.5 pg (27.0-31.0); Mean Platelet Volume 10.9 fL (7.4-10.4); Nucleated Red Blood Cells % 0 %; Platelet Count 209 10^3/uL (130-400); Red Cell Dist. Width 13.6 % (11.5-14.5); White Blood Cell Count 8.6 10^3/uL (4.8-10.8)
[2024-03-23] MEDS: NSS 2000 IV (20:45)
[2024-03-23 20:53] LABS: Lactic Acid 1.6 mmol/L (0.7-2.0)
[2024-03-23 20:55] LABS: ALT (SGPT) 65 U/L (0-35); AST (SGOT) 122 U/L (14-36); Albumin 3.4 g/dl (3.5-5.0); Alkaline Phosphatase 140 U/L (38-126); Blood Urea Nitrogen 18 mg/dl (7-17); Carbon Dioxide 22 mmol/L (22-30); Chloride 109 mmol/L (98-107); Glucose 129 mg/dl (70-99); Sodium 139 mmol/L (135-145); Total Bilirubin 0.6 mg/dl (0.2-1.3); Total Protein 6.5 g/dl (6.3-8.2); eGFR > 60.00
--- NOTE | 2024-03-23 21:07 | HPS.HSE ---
Family Physician
-
Family Physician: Timbo Courtney
Chief Complaint
-
fever
lethargic
History of Present Illness
48-year-old with past medical history for seizure, cerebral palsy presented to us with fever of 102 at home. She was noted to be lethargic. Family attempted to give Tylenol crushed in applesauce. She started coughing. Review of system is limited
as patient is nonverbal. History obtained primarily from family. Patient lives with her parents. She was noted to have seizure activity with fever at home.
On arrival patient was hypoxic. 74 percentage on room air. Patient requiring min better mask. Patient received fluids and Zosyn in ER. Admitting for further management
Medical History
Past Medical History
Past Medical History: Reports Other
Additional Past Medical History:
Cerebral palsy
Ovarian cancer
Seizure
Past Surgical History: Reports Other
Additional Past Surgical History:
LUCERO/BSO
Appendectomy
vagus nerve stimulator implant
Social History
Tobacco: Non-smoker
Alcohol: None
Drug: None
Personal: Single
Living: With Family
Family History
Family History: Not pertinent
Allergies / Home Medications
Allergies reflects when Allergies were last updated in [facility].
Home Medications with original date entered in [facility]
Allergy/Medication List:
Allergies
Allergy/AdvReac Type Severity Reaction Status Date / Time
brompheniramine Allergy Unknown Verified 03/17/24 18:58
[From Dimetapp Cold-Allergy
(PE)]
cephalexin [From Keflex] Allergy Unknown Verified 03/17/24 18:58
chloral hydrate Allergy Unknown Verified 03/17/24 18:58
diphenhydramine Allergy Unknown Verified 03/17/24 18:58
[From Benadryl]
latex Allergy Swelling Verified 03/17/24 18:54
phenobarbital Allergy Unknown Verified 03/17/24 18:58
phenylephrine Allergy Unknown Verified 03/17/24 18:58
[From Dimetapp Cold-Allergy
(PE)]
phenytoin [From Dilantin] Allergy Rash Verified 03/17/24 18:54
Sulfa (Sulfonamide Allergy Hives Verified 03/17/24 18:46
Antibiotics)
topiramate [From Topamax] Allergy Rash Verified 03/17/24 18:54
Home Medications
Lactobac no.2-Bifidobac no.1-S. thermo 112.5 billion cell capsule (Visbiome) 1 cap PO DAILY 03/17/24
ascorbic acid (vitamin C) 500 mg tablet (Vitamin C) 500 mg PO DAILY 03/17/24
cetirizine 10 mg tablet (Zyrtec) 10 mg PO DAILY PRN allergies 03/17/24
clobazam 10 mg tablet (Onfi) 10 mg PO BID 03/17/24
docusate sodium 50 mg/5 mL oral liquid 100 mg PO BIDPRN PRN constipation 03/17/24
fluticasone propionate 50 mcg/actuation nasal spray,suspension 2 spray intranasal DAILY 03/17/24
letrozole 2.5 mg tablet 2.5 mg PO HS 03/17/24
montelukast 10 mg tablet (Singulair) 10 mg PO HS 03/17/24
nitrofurantoin macrocrystal 50 mg capsule 50 mg PO DAILY 03/17/24
oxcarbazepine 600 mg tablet (Trileptal) 600 mg PO BID 03/17/24
polyethylene glycol 3350 17 gram oral powder packet (Miralax) 17 g PO DAILY PRN constipation 03/17/24
sennosides 8.8 mg/5 mL oral syrup (senna) 17.6 mg PO HSPRN PRN constipation 03/17/24
tiagabine 4 mg tablet 4 mg PO HS 03/17/24
acetaminophen 500 mg tablet (Tylenol Extra Strength) 1,000 mg PO Q6H PRN mild pain 03/23/24
midodrine 5 mg tablet 15 mg PO BID 03/23/24
Review of Systems
-
Unable to obtain full review of systems at this time due to: Patient Non-verbal
Physical Exam
Vital Signs
Vital Signs
Temp Pulse Resp BP Pulse Ox
101.9 F H 116 34 97/64 100
03/23/24 20:56 03/23/24 18:41 03/23/24 18:41 03/23/24 18:41 03/23/24 19:00
Physical Exam
General: Well Developed, Well Nourished and No Apparent Distress
HEENT: NormoCephalic, Moist mucous membranes and Atraumatic
Respiratory: Rhonchi
Cardiac: S1/S2 and Regular Rhythm; No Murmur or Rub
GI: Soft, Non Tender, Non Distended and Normal Bowel Sounds; No Organomegaly
Rectal: Deferred by Provider
Musculoskeletal: No Clubbing, No Cyanosis and Other (foot edema)
Skin: No Rash
Neuro: Nonfocal/grossly intact
Laboratory Results
-
03/23/24 20:32
03/23/24 20:32
Laboratory Results
pH 7.52 (7.35-7.45) H 03/23/24 19:55
pCO2 30 mmHg (32-35) L 03/23/24 19:55
pO2 178 mmHg (83-108) H 03/23/24 19:55
HCO3 24.5 mmol/L (21-28) 03/23/24 19:55
Lactic Acid 1.6 mmol/L (0.7-2.0) 03/23/24 20:32
Total Bilirubin 0.6 mg/dl (0.2-1.3) 03/23/24 20:32
AST 122 U/L (14-36) H 03/23/24 20:32
ALT 65 U/L (0-35) H 03/23/24 20:32
Alkaline Phosphatase 140 U/L (38-126) H 03/23/24 20:32
Data Reviewed
-
Lab Data: Labs Reviewed by me
Impression/Plan
-
#sepsis/acute hypoxic respiratory failure likely aspiration pneumonia
-sepsis as evident by hypotension, tachycardia, fever
-negative for influenza
-Continue supplemental oxygen to keep sat greater than 92
-Wean as tolerated
-Obtain COVID
-chest x ray pending
-iv zosyn continued
-Nebs as needed for short of breath and wheezing
-fluids continued
-ID consulted
#elevated transaminase unclear cause likely dehydration
-ast 122, ALT 65m ALK 140
-Will obtain a set of abdomen
-Patient denied any abdominal pain
-Continue to trend LFTs
#acute on chronic hypotension
-Levophed continued
-midodrine continued
# History for esophageal web with possible dysphagia
-She is on pur�ed diet with thickened liquids
-Will keep her n.p.o.
-Speech eval
#Cerebral Palsy
#Seizure Disorder
- Stable. Family notes that patient has frequent - though mild - breakthrough seizures.
- Continue onfi, Trileptal, tiagabin
-seizure precaution continued
#History of Ovarian Cancer
- s/p surgery and then hormonal therapy.
- Has completed treatment x 5 years.
- Remains on letrozole at family preference.
#Functional quadriplegia due to cerebral palsy
- Dependent on family for all care
#DVT Prophylaxis: Lovenox
#Code Status: Full
[2024-03-23] MEDS: ZOSYN 100 IV (21:18)
[2024-03-23 21:22] LABS: Procalcitonin 7.99 ng/ml (0.0-0.25)
[2024-03-23 21:27] LABS: Urine Albumin Trace (Neg - Trace); Urine Bilirubin Negative (Negative); Urine Character Slightly Cloudy (Clear); Urine Color Amber; Urine Glucose Negative (Negative); Urine Ketone Trace (Negative); Urine Leukocyte Trace (Negative); Urine Nitrite Negative (Negative); Urine Occult Blood Negative (Negative); Urine Specific Gravity 1.015 (<1.030); Urine Urobilinogen Negative (Neg - 1+)
--- NOTE | 2024-03-23 21:27 | W.PN.UPDATE ---
Addendum entered and electronically signed by Isabel Stanley MD 03/23/24 22:10:
recent CT without gallstones. Transaminitis likely related to sepsis. Will trend and consider repeat imaging if worse tomorrow.
Original Note:
Update Note
Progress Note Update
This is an addendum to H&P written by SCALLOP BINDER Alyson Reynoso
Ms. Ciera Orantes is a 48 yo woman with hx cerebral palsy (non-verbal at baseline, wheelchair bound), seizure disorder, ovarian cancer s/p surgery and hormone treatment, recent admission 03/18-03/22 for aspiration pneumonia with possible recurrent UTI
represents to the ER day after discharge with increase seizure activity and flushing.
Triage vitals: T 104.5, P 116, RR 34, BP 97/64, SpO2 75%
LABS: WBC 8.6, Hg 12.7, PLT 209, Na 139, K+ 4.0, Cl 109, BUn 18, Cr 0.9, Glucose 129, Ca 11.0, T. Bili 0.6, AST 122, ALT 65, Alk Phos 140, Procalcitonin 7.99
CXR with findings of bilateral pneumonia
On exam patient is arousable to touch. Coarse breath sounds, + rales; CV: S1, S2, tachycardic no murmurs; no LE swelling
Septic Shock 2/2 Bilateral Pneumonia, likely Aspiration Pneumonia
-s/p 3L bolus, requiring Levophed in ER
-admit to IMU
-IV Zosyn 4.5G dosing
-IV Levophed, wean as able
-IVF
-NPO, ST consult
-O2 support as needed, currently on NRB
-ID consult
Esophageal Web
-seen last admission with VSE, decision made to hold off on EGD at that time given no report of dysphagia
-may need repeat GI consult this admission once pulmonary status stabilizes
Transaminitis
-will obtain RUQ US
Seizure Disorder
-continue anti-epileptic medications; if notice difficulty with these pills may need dobhoff
FULL CODE
Total Critical Care Time 45 minutes. I was immediately available to the patient and staff. I personally examined, reviewed labs, diagnostic images/reports, interpretations, treatment plans, discussed patient care with other providers and family
or caregivers (if patient is unable to make decisions), entered orders as appropriate and documented the medical record.
[2024-03-23 21:34] LABS: Urine Hyaline Cast 0-2 /LPF (0-2)
[2024-03-23 21:35] LABS: Urine Red Blood Cell None Seen /HPF (0-2); Urine White Cell 0-2 /HPF (0-5)
[2024-03-23] MEDS: NSS 1000 IV (21:40)
[2024-03-23] MEDS: LEVOPHED 250 IV (21:43)
[2024-03-23 22:52] LABS: COVID-19 Antigen Negative (Negative)
[2024-03-24] VITALS (67 sets, daily range): BP systolic 63–153; BP diastolic 54–129
--- NOTE | 2024-03-24 00:10 | PTCARENOTE ---
pt received from ed. pt nonverbal. nsr on monitor. arrived w/ 15l nrb 12l midflow nc applied istead of nrb. pulse ox 98%. NSS @ 100cc/hr. levo @ 3mcg/min. MAP >65. Family at bedside. pure wi placed. chg bath obtained. family updated on care.
[2024-03-24] MEDS: NSS 1000 IV ×3 (00:15→21:32)
[2024-03-24] MEDS: TYLENOL/FEVERALL 650 MG RECTAL ×4 (00:25→17:19)
[2024-03-24] MEDS: SINGULAIR PO (01:20)
[2024-03-24] MEDS: FEMARA PO (01:20)
[2024-03-24] MEDS: ZOSYN 100 IV ×2 (01:55→08:18)
[2024-03-24 04:45] LABS: Hematocrit 32.2 % (37.0-47.0); Hemoglobin 11.1 g/dL (12.0-16.0); Mean Corp Hgb Conc. 34.5 g/dL (33.0-37.0); Mean Corpuscular Hgb 29.4 pg (27.0-31.0); Mean Corpuscular Volume 85.2 fL (81.0-99.0); Mean Platelet Volume 10.9 fL (7.4-10.4); Platelet Count 200 10^3/uL (130-400); Red Blood Cell Count 3.78 10^6/uL (4.20-5.40); Red Cell Dist. Width 13.5 % (11.5-14.5); White Blood Cell Count 10.2 10^3/uL (4.8-10.8)
[2024-03-24 05:03] LABS: Blood Urea Nitrogen 15 mg/dl (7-17); Calcium 8.5 mg/dl (8.4-10.2); Carbon Dioxide 18 mmol/L (22-30); Chloride 116 mmol/L (98-107); Glucose 134 mg/dl (70-99); Potassium 3.9 mmol/L (3.5-5.1); Sodium 137 mmol/L (135-145); eGFR > 60.00
--- NOTE | 2024-03-24 08:45 | W.PN.HOSP.TC ---
Today's Communication/Plan
-
see bold
Assessment / Plan
Assessment / Plan
HPI: 48-year-old with past medical history for seizure, cerebral palsy presented to us with fever of 102 at home. She was noted to be lethargic. Family attempted to give Tylenol crushed in applesauce. She started coughing. Review of system is
limited as patient is nonverbal. History obtained primarily from family. Patient lives with her parents. She was noted to have seizure activity with fever at home.
On arrival patient was hypoxic. 74 percentage on room air. Patient requiring min better mask. Patient received fluids and Zosyn in ER. Admitting for further management
#Transient hypoxemia
#Sepsis
#Fever
#Probable aspiration during seizure episode
Appreciate ID input, patient probably has pneumonia versus pneumonitis
Procalcitonin is elevated, normal white blood cell count with left shift
Continue Zosyn
Check sputum culture if possible
Follow chest x-ray, fever/WBC
#Chronic dysphagia
#Probable aspiration during seizure episode
# History for esophageal web with possible dysphagia
She is usually on a pur�ed diet with nectar thickened liquids
Her mentation is decompressed, Dobbhoff tube inserted for medications and tube feeds
#Mild transaminitis from infection
Trend LFTs
#Acute on chronic hypotension
Continue midodrine 15 mg 3 times daily
#Cerebral Palsy
#Seizure Disorder
- Stable. Family notes that patient has frequent - though mild - breakthrough seizures.
- Continue onfi, Trileptal, tiagabin
- Seizure precaution continued
#History of Ovarian Cancer
- S/p surgery and then hormonal therapy.
- Has completed treatment x 5 years.
- Remains on letrozole at family preference.
#Functional quadriplegia due to cerebral palsy
- Dependent on family for all care
#DVT Prophylaxis: Lovenox
#Code Status: Full
Updated parents at bedside
Total time spent to see the patient on the floor, examine the patient, review data and lab results, discuss treatment plan with patient, nursing staff around 50 minutes.
Physical Exam
General: No acute distress, appears acutely ill
HEENT: Normocephalic, Atraumatic, EOMI, MMM
Respiratory: Clear to Auscultation bilaterally
Cardiac: Normal S1/S2, Regular Rate and Rhythm
GI: Soft, Nontender, Nondistended, Normal Bowel Sounds
Extremities: No Clubbing, Cyanosis, or Edema
Neuro: Less awake than usual
Psych: Calm, Cooperative
Derm: No Visible lesions
Anticipated Discharge: > 48 hours
Subjective/Interval History
-
Date of Service: March 24, 2024
Patient appears more confused than baseline. She is not as alert as she usually is. Continues to have fever. No vomiting.
Objective Data
-
Labs:
Laboratory Results
03/23/24 03/24/24
20:32 04:33
WBC 8.6 10.2
Hgb 12.7 11.1 L
Hct 36.1 L 32.2 L
Plt Count 209 200
Sodium 139 137
Potassium 4.0 3.9
Chloride 109 H 116 H
Carbon Dioxide 22 18 L
BUN 18 H 15
Creatinine 0.9 0.7
Glucose 129 H 134 H
Calcium 11.0 H D 8.5 D
Total Bilirubin 0.6
AST 122 H
ALT 65 H
Alkaline Phosphatase 140 H
Vital Signs:
Vital Signs
Temp Pulse Resp BP Pulse Ox
100.7 F H 86 26 128/68 97
03/24/24 07:21 03/24/24 06:30 03/24/24 06:30 03/24/24 06:30 03/24/24 06:35
I&O
05/09/24 05/10/24 05/11/24
06:59 06:59 06:59
Intake Total 800 / 800
Balance 800 / 800
--- NOTE | 2024-03-24 11:28 | CM ---
Patient seen at bedside, patient parents seen in waiting room. Patient lives with parents in a ranch style home with ramps for access, wheelchair, brijesh, shower chair, rails and hospital bed. Patient mother indicated that patient has a waiver for 52
hours weekly and that they have updated program regarding patient hospitalization. Patient also goes to program/workshop 2-3 days with transportation and family cover cost of the workshop([employer] [facility] program. Family is in process of
applying for a consolidated waiver but understand that they are on the waiting list at this time. Patient parents are primary caregivers and indicate that they do the medications for patient. Patient parents have stated that they do not want her to
go to SNF, their plan is for patient to return home with VN/PT/OT pending assessment and to talk to the waiver services to provide any additional care. Patient PCP is Dr. Courtney and she uses the [facility] in [place]. CM will continue to follow for
discharge planning needs.
Plan; home with VN; waiver services
[2024-03-24] MEDS: TRILEPTAL 600 MG PO ×2 (11:57→21:33)
[2024-03-24] MEDS: ProAmatine PO ×2 (11:57→21:34)
[2024-03-24] MEDS: ONFI 10 MG PO ×2 (11:58→21:33)
--- NOTE | 2024-03-24 12:09 | CON.ID ---
Consultation
-
Date/Time Consultation Requested: 03/23/2024 22:07
Date/Time Consultation Performed: 03/24/2024 1200
Requesting Provider: Alyson Reynoso
Performing Provider: Dr. Trotter
Reason for Consultation: Clinical sepsis
Chief Complaint / Past History
History of Present Illness
Ciera Orantes is a 48-year-old female being evaluated at the request of Alyson Reynoso) clinical sepsis. History is obtained from chart review and history obtained from the patient's parents who are at the bedside. The patient has a significant past
medical history of cerebral palsy, is nonverbal, and cannot provide any history to me.
The patient recently was admitted to [facility] from 03/17/2024 through 03/22/2024, at during which time she was treated for fever, possible urinary tract infection and pneumonitis. She completed a course of Zosyn, and was discharged to home.
According to parents yesterday she was put down for a nap, but when found by family members a little bit later she had 'purple lips' and a temperature of 101 degrees. EMS was called, she was brought to the hospital further evaluation. Here, her
temperature was found to be 104.5 degrees rectally. Imaging suggested pneumonia versus pneumonitis, and she was started on empiric antibiotics.
At this time, family denies witnessing significant cough. They have not seen significant sputum production. She has noted to have daily seizures which are described as 'petit mall'. She is on 2 antiseizure medicines.
Past History
Additional Past Medical History:
Cerebral Palsy
Ovarian Cancer s/p Surgery and Hormone Treatment
Seizure Disorder
Additional Past Surgical History:
LUCERO / BSO
Appendectomy
Vagus Nerve Stimulator Implantation (Left Upper Chest)
Allergy History:
brompheniramine [From Dimetapp Cold-Allergy (PE)] Allergy (Verified 03/23/24 23:46)
hyper
cephalexin [From Keflex] Allergy (Verified 03/23/24 23:46)
hyper
chloral hydrate Allergy (Verified 03/23/24 23:46)
hyper
diphenhydramine [From Benadryl] Allergy (Verified 03/23/24 23:46)
hyper
latex Allergy (Verified 03/17/24 18:54)
Swelling
phenobarbital Allergy (Verified 03/23/24 23:46)
hyper
phenylephrine [From Dimetapp Cold-Allergy (PE)] Allergy (Verified 03/23/24 23:46)
hyper
phenytoin [From Dilantin] Allergy (Verified 03/17/24 18:54)
Rash
Sulfa (Sulfonamide Antibiotics) Allergy (Verified 03/17/24 18:46)
Hives
topiramate [From Topamax] Allergy (Verified 03/17/24 18:54)
Rash
Medications Reviewed: Yes
Current Antibiotics:
Zosyn 4.5 g IV every 6 hours
Social History
Tobacco: Non-Smoker
Alcohol: None
Drug: None
Personal: Single
Living: With Family
Employment: Disabled
Review of Systems
Vital Signs
Temp Pulse Resp BP Pulse Ox
99.1 F 72 26 153/82 97
03/24/24 11:04 03/24/24 11:57 03/24/24 06:30 03/24/24 11:57 03/24/24 06:35
Physical Exam
Physical Exam
Constitutional: Chronically Ill and Non-toxic
Head: Normocephalic and Other (Nasal Dobbhoff in place.)
Eyes: Pupils Equal, Pupils Round, No Conjunctival Hemorrhage and Sclera Anicteric
Oral: No Thrush and Other (Dry oral mucosa)
Cardiovascular: S1/S2; Negative S3/S4
Pulmonary: Coarse, Non Labored and Other (Inspiratory crackles bilaterally); Negative Wheezes or Rhonchi
Gastrointestinal: Soft, Non Distended, Normal Bowel Sounds, No Rebound and No Guarding
Skin: Warm and Dry; Negative Rash or Jaundice
Neurological: Awake and Alert
Psychological: Calm
Lab / Diagnostic Study Results
03/24/24 04:33
03/24/24 04:33
Abs Immat Gran (auto) 0.1 10^3/uL (0-0.05) H 03/23/24 20:32
Absolute Neuts (auto) 7.9 10^3/uL (1.4-6.5) H 03/23/24 20:32
Absolute Lymphs (auto) 0.3 10^3/uL (1.2-3.4) L 03/23/24 20:32
Absolute Monos (auto) 0.3 10^3/uL (0.1-0.6) 03/23/24 20:32
Absolute Basos (auto) 0.0 10^3/uL (0-0.2) 03/23/24 20:32
Immature Gran % 0.6 % (0-0.5) H 03/23/24 20:32
Neutrophils % 91.2 % (42.2-75.2) H 03/23/24 20:32
Lymphocytes % 3.7 % (20.5-51.1) L 03/23/24 20:32
Monocytes % 3.7 % (1.7-9.3) 03/23/24 20:32
Eosinophils % 0.5 % (0-6) 03/23/24 20:32
Basophils % 0.3 % (0-2) 03/23/24 20:32
Lactic Acid Cancelled 03/23/24 23:00
Procalcitonin 7.99 ng/ml (0.0-0.25) H* 03/23/24 20:44
Ur Squamous Epith Cells 3-5 /LPF (Few) 03/23/24 21:21
Microbiology Results
Micro:
03/23/24 20:32 Blood Culture - Pending
Blood/Venous
03/23/24 20:36 Blood Culture - Pending
Blood/Venous
03/23/24 19:22 Influenza Types A & B (SAMARA) - Final
Nasal Swab Negative for Influenza A & B, NAAT
Negative results must be combined with clinical observations
and patient history.
Nucleic Acid Amplification test (NAAT)performed on the
[employer] platform.
Imaging:
03/24/2024 CXR (portable): Dobbhoff tube has been placed, and tip projects over the midline to right paramedian upper abdomen, likely within the distal stomach or the proximal aspect of the duodenum. Patchy bilateral proximal airspace opacities,
fairly extensive, and these appear increased compared to most recent radiograph of March 23, 2024.
Assessment / Plan
Fever
Reported hypoxemia
Suspected aspiration; PNA versus pneumonitis
Normal white count with left shift
Elevated procalcitonin
Cerebral Palsy
Ovarian Cancer s/p Surgery and Hormone Treatment
Seizure Disorder with reported daily seizures
Recommendations:
Continue with Zosyn for the present. Decrease to 3.375 g IV every 6 hours
Follow white count and temperature curve.
Check sputum culture if at all possible.
Follow CXR for stability/improvement.
Aspiration precautions
[2024-03-24] MEDS: ZOSYN 50 IV ×2 (15:21→21:33)
[2024-03-24] MEDS: LOVENOX 40 MG SC (17:19)
--- NOTE | 2024-03-24 17:47 | PTCARENOTE ---
Pt having petit mal seizures this morning during speech eval so unable to complete evaluation. DHT placed in R nare so we can give oral antiepileptics. Pt still requiring 15L midflow O2 and is tachypneic at times. Has moist nonproductive cough.
BP improving and able to discontinue Levophed.
[2024-03-24] MEDS: SINGULAIR 10 MG PO (21:33)
[2024-03-24] MEDS: FEMARA 2.5 MG PO (21:33)
[2024-03-24] MEDS: NON-FORMULARY ITEM 4 MG PO (21:35)
[2024-03-24] MEDS: DUONEB 3 ML INH (21:57)
--- NOTE | 2024-03-24 22:39 | PTCARENOTE ---
Pt tachypneic with RR in the 40's. POX 89% on 15LMid Flow NC. RT at bedside to give breathing treatment, NO improvement post breathing treatment. HR in the low 100's. Rectal temp 100.8. RT at bedside to place pt on HiFlow NC. POX now 97% RR om the
30's on 60L/100% hi flow. Del GALLARDONP at bedside to assess pt. Ofirmev ordered. Father remains at bedside. Will continue to monitor
[2024-03-24] MEDS: OFIRMEV 100 IV (22:42)
[2024-03-25] VITALS (23 sets, daily range): BP systolic 79–157; BP diastolic 50–97; BMI 28.4
[2024-03-25] MEDS: ProAmatine 15 MG PO ×2 (00:04→17:37)
--- NOTE | 2024-03-25 00:51 | PTCARENOTE ---
PT HR now in the 80's in NSR on the monitor. POX 98% on Hi Flow NC. RR in the 20's. Rectal temp down to 100.7. BP much improved post late administration of Midodrine. Pt appears much more comfortable. IVF infusing as ordered. Father remains at
bedside. Will continue to monitor.
[2024-03-25] MEDS: ZOSYN 50 IV ×4 (01:48→20:29)
[2024-03-25 04:29] LABS: Hematocrit 33.4 % (37.0-47.0); Hemoglobin 11.5 g/dL (12.0-16.0); Mean Corp Hgb Conc. 34.4 g/dL (33.0-37.0); Mean Corpuscular Hgb 30.3 pg (27.0-31.0); Mean Corpuscular Volume 87.9 fL (81.0-99.0); Mean Platelet Volume 11.1 fL (7.4-10.4); Platelet Count 225 10^3/uL (130-400); Red Cell Dist. Width 13.2 % (11.5-14.5); White Blood Cell Count 11.1 10^3/uL (4.8-10.8)
[2024-03-25 05:02] LABS: ALT (SGPT) 58 U/L (0-35); AST (SGOT) 124 U/L (14-36); Albumin 2.6 g/dl (3.5-5.0); Alkaline Phosphatase 107 U/L (38-126); Blood Urea Nitrogen 16 mg/dl (7-17); Calcium 9.1 mg/dl (8.4-10.2); Carbon Dioxide 21 mmol/L (22-30); Chloride 108 mmol/L (98-107); Glucose 95 mg/dl (70-99); Potassium 4.2 mmol/L (3.5-5.1); Sodium 135 mmol/L (135-145); Total Bilirubin 0.6 mg/dl (0.2-1.3); Total Protein 5.5 g/dl (6.3-8.2); eGFR > 60.00
--- NOTE | 2024-03-25 06:26 | PTCARENOTE ---
Pt with episodes of tachypnea overnight. Last evening seemed to correlate with rising fever. This am Temp is 99.3, HR in the 90s, POX 92% on 50L/80%. RR in the 30's. RT notified. No other issues to report at this time. Will continue to monitor.
[2024-03-25] MEDS: DUONEB 3 ML INH (06:30)
[2024-03-25] MEDS: ProAmatine PO (08:06)
--- NOTE | 2024-03-25 08:06 | W.PN.HOSP.TC ---
Today's Communication/Plan
-
see bold
Assessment / Plan
Assessment / Plan
HPI: 48-year-old with past medical history for seizure, cerebral palsy presented to us with fever of 102 at home. She was noted to be lethargic. Family attempted to give Tylenol crushed in applesauce. She started coughing. Review of system is
limited as patient is nonverbal. History obtained primarily from family. Patient lives with her parents. She was noted to have seizure activity with fever at home.
On arrival patient was hypoxic. 74 percentage on room air. Patient requiring min better mask. Patient received fluids and Zosyn in ER. Admitting for further management
#Transient hypoxemia
#Sepsis
#Fever
#Probable aspiration during seizure episode
Appreciate ID input, patient probably has pneumonia versus pneumonitis
Procalcitonin is elevated, normal white blood cell count with left shift
Continue Zosyn
Check sputum culture if possible
Follow chest x-ray, fever/WBC
#Chronic dysphagia
#Probable aspiration during seizure episode
# History for esophageal web with possible dysphagia
She is usually on a pur�ed diet with nectar thickened liquids
Her mentation is decompressed, Dobbhoff tube inserted for medications
Nutrition consulted for tube feed recommendations
#Mild transaminitis from infection
Trend LFTs
#Acute on chronic hypotension
Continue midodrine 15 mg 3 times daily
Has not required any Levophed
#Cerebral Palsy
#Seizure Disorder
- Stable. Family notes that patient has frequent - though mild - breakthrough seizures.
- Continue onfi, Trileptal, tiagabin
- Seizure precaution continued
#History of Ovarian Cancer
- S/p surgery and then hormonal therapy.
- Has completed treatment x 5 years.
- Remains on letrozole at family preference.
#Functional quadriplegia due to cerebral palsy
- Dependent on family for all care
#DVT Prophylaxis: Lovenox
#Code Status: Full
Updated parents at bedside
Physical Exam
General: No acute distress, appears acutely ill
HEENT: Normocephalic, Atraumatic, EOMI, MMM
Respiratory: Clear to Auscultation bilaterally
Cardiac: Normal S1/S2, Regular Rate and Rhythm
GI: Soft, Nontender, Nondistended, Normal Bowel Sounds
Extremities: No Clubbing, Cyanosis, or Edema
Neuro: Less awake than usual
Nonverbal/nonmobile at baseline
Anticipated Discharge: > 48 hours
Subjective/Interval History
-
Date of Service: March 25, 2024
Patient continues to have fever overnight. She continues to be lethargic. No vomiting.
Objective Data
-
Labs:
Laboratory Results
03/25/24
04:03
WBC 11.1 H
Hgb 11.5 L
Hct 33.4 L
Plt Count 225
Sodium 135
Potassium 4.2
Chloride 108 H
Carbon Dioxide 21 L
BUN 16
Creatinine 0.7
Glucose 95
Calcium 9.1
Total Bilirubin 0.6
AST 124 H
ALT 58 H
Alkaline Phosphatase 107
Vital Signs:
Vital Signs
Temp Pulse Resp BP Pulse Ox
100.8 F H 98 36 152/90 90
03/25/24 07:52 03/25/24 06:36 03/25/24 06:36 03/25/24 04:00 03/25/24 06:36
I&O
03/24/24 03/25/24 03/26/24
06:59 06:59 06:59
Intake Total 800 / 800 1350 / 1350
Output Total 1080 / 1080
Balance 800 / 800 270 / 270
--- NOTE | 2024-03-25 08:19 | PTCARENOTE ---
Rec'd pt at 0700. Pt awake/nonverbal. Pt's father at bedside. Monitor SR. Lungs sct coarse, pox 97% on HFNC 60L/100%. +BS, abd soft/nt. Saturated in urine, pericare performed, new purewick applied.
[2024-03-25] MEDS: ONFI 10 MG PO ×2 (08:25→20:29)
[2024-03-25] MEDS: TRILEPTAL 600 MG PO ×2 (08:25→20:29)
[2024-03-25] MEDS: NSS 1000 IV ×2 (08:26→19:38)
--- NOTE | 2024-03-25 08:42 | W.PN.ID1 ---
Date of Service
Date of Service: March 25, 2024
Today's Communication
Continue abx.
Assessment / Plan
Fever
- ongoing
- ?infection ?ongoing aspiration ?drug fever ?other
Reported hypoxemia
Suspected aspiration; PNA versus pneumonitis
Normal white count with left shift
Elevated procalcitonin
Cerebral Palsy
Ovarian Cancer s/p Surgery and Hormone Treatment
Seizure Disorder with reported daily seizures
Recommendations:
Continue with Zosyn for the present.
Follow white count and temperature curve.
Check sputum culture if at all possible.
Follow CXR for stability/improvement.
Aspiration precautions
����������������������������������������������������������
Chief Complaint
-: Fever
Subjective / Review of Systems
Patient seen and examined. Nursing reports varying O2 requirements. Overnight needed high flow, but is currently being weaned again.
Vital Signs / Physical Exam
Vital Signs
Vital Signs
Temp Pulse Resp BP Pulse Ox
100.8 F H 98 36 130/79 90
03/25/24 07:52 03/25/24 06:36 03/25/24 06:36 03/25/24 08:06 03/25/24 06:36
Physical Exam
Constitutional: Chronically Ill and Non-toxic
Eyes: Sclera Anicteric
Cardiovascular: S1/S2; Negative S3/S4
Pulmonary: Coarse and Other (Mildly labored.)
Gastrointestinal: Soft, Non Distended and Normal Bowel Sounds
Extremities: Negative Edema or Erythema
Neurological: Awake
Psychological: Calm
Objective Data
Lab Data
Lab Results
03/25/24 04:03
03/25/24 04:03
Lactic Acid Cancelled 03/23/24 23:00
Total Bilirubin 0.6 mg/dl (0.2-1.3) 03/25/24 04:03
AST 124 U/L (14-36) H 03/25/24 04:03
ALT 58 U/L (0-35) H 03/25/24 04:03
Alkaline Phosphatase 107 U/L (38-126) 03/25/24 04:03
Most recent labs reviewed.
Micro Results:
03/23/24 20:32 Blood Culture - Preliminary
Blood/Venous No Growth in 24 hours- Final report to follow
03/23/24 20:36 Blood Culture - Preliminary
Blood/Venous No Growth in 24 hours- Final report to follow
03/23/24 19:22 Influenza Types A & B (SAMARA) - Final
Nasal Swab Negative for Influenza A & B, NAAT
Negative results must be combined with clinical observations
and patient history.
Nucleic Acid Amplification test (NAAT)performed on the
[employer] platform.
Imaging:
03/24/2024 CXR (portable): Dobbhoff tube has been placed, and tip projects over the midline to right paramedian upper abdomen, likely within the distal stomach or the proximal aspect of the duodenum. Patchy bilateral proximal airspace opacities,
fairly extensive, and these appear increased compared to most recent radiograph of March 23, 2024.
[2024-03-25] MEDS: TYLENOL ORAL SOLUTION 650 MG PO ×2 (09:49→15:53)
[2024-03-25] MEDS: LOVENOX 40 MG SC (17:37)
--- NOTE | 2024-03-25 20:00 | PTCARENOTE ---
Resumed care of pt laying in bed awake, with father at bedside. Pt with hx of Cerebral Palsy, Non verbal at baseline. Pt does make some sound/noises. Hr in the 60's in NSR on the monitor. POX 94% on 40L/50% Hi Flow NC. Lungs course with scattered
rhonchi. Moist non productive cough. Sneezes at times. Tachypneic at times. Pt inc of large loose BM, and urine. Bed bath provided. Kim care complete. Pure wick removed. Rectal trumpet now in place draining loose brown stool. Right Nare DHT
infusing Jevity 1.5 @20ml/hr, 25ml/flush. + bowel. Round abd. + 1 B/L pedal edema. Right midline infusing NSS@100ml/hr. Left hand int capped. B/L wrist restraints in place for pt safety. Rectal temp 100.3 Tylenol administered as ordered. Pt
repositioned. MARY'S IGLOO elevated. Will continue to monitor.
[2024-03-25] MEDS: SINGULAIR 10 MG PO (22:27)
[2024-03-25] MEDS: FEMARA 2.5 MG PO (22:27)
[2024-03-25] MEDS: NON-FORMULARY ITEM 4 MG PO (22:27)
[2024-03-26] VITALS (20 sets, daily range): BP systolic 72–141; BP diastolic 48–93
[2024-03-26] MEDS: TYLENOL ORAL SOLUTION 650 MG PO ×4 (00:27→19:19)
--- NOTE | 2024-03-26 00:30 | PTCARENOTE ---
Pt with 101.0 temp. Tylenol administered as ordered. Ice packs applied to under arms. POX remains stable on 40L/50% Hi Flow NC. Pt repositioned per comfort. Father remains at bedside. Will continue to monitor.
[2024-03-26] MEDS: ZOSYN 50 IV ×4 (02:14→19:19)
--- NOTE | 2024-03-26 02:51 | PTCARENOTE ---
Pt restless, agitated, making noises. Temp down to 99.9. POX sustaining 84%. RT at bedside to adjust hi Flow oxygen, increased to 50L/75%. Pt tachypneic. Pt repositioned. Pt checked for incontinence. Unable to establish cause of pt discomfort.
Genesis EDMONDSON notified. Order obtained. See Mar. Will continue to monitor.
[2024-03-26 05:10] LABS: Hematocrit 37.1 % (37.0-47.0); Hemoglobin 12.4 g/dL (12.0-16.0); Mean Corp Hgb Conc. 33.4 g/dL (33.0-37.0); Mean Corpuscular Hgb 29.3 pg (27.0-31.0); Mean Corpuscular Volume 87.7 fL (81.0-99.0); Mean Platelet Volume 10.8 fL (7.4-10.4); Platelet Count 221 10^3/uL (130-400); Red Blood Cell Count 4.23 10^6/uL (4.20-5.40); Red Cell Dist. Width 13.4 % (11.5-14.5); White Blood Cell Count 8.9 10^3/uL (4.8-10.8)
[2024-03-26 05:33] LABS: ALT (SGPT) 50 U/L (0-35); AST (SGOT) 95 U/L (14-36); Albumin 2.8 g/dl (3.5-5.0); Alkaline Phosphatase 132 U/L (38-126); Blood Urea Nitrogen 13 mg/dl (7-17); Calcium 9.5 mg/dl (8.4-10.2); Carbon Dioxide 24 mmol/L (22-30); Chloride 107 mmol/L (98-107); Glucose 107 mg/dl (70-99); Magnesium 1.7 mg/dl (1.6-2.3); Phosphorus 3.3 mg/dl (2.5-4.5); Potassium 3.6 mmol/L (3.5-5.1); Sodium 139 mmol/L (135-145); Total Bilirubin 0.7 mg/dl (0.2-1.3); eGFR > 60.00
[2024-03-26] MEDS: NSS 1000 IV (06:38)
[2024-03-26] MEDS: ProAmatine 15 MG PO ×3 (08:15→17:27)
[2024-03-26] MEDS: ONFI 10 MG PO ×2 (08:15→19:19)
[2024-03-26] MEDS: TRILEPTAL 600 MG PO ×2 (08:15→19:19)
--- NOTE | 2024-03-26 09:32 | W.PN.HOSP.TC ---
Today's Communication/Plan
-
see bold
Assessment / Plan
Assessment / Plan
HPI: 48-year-old with past medical history for seizure, cerebral palsy presented to us with fever of 102 at home. She was noted to be lethargic. Family attempted to give Tylenol crushed in applesauce. She started coughing. Review of system is
limited as patient is nonverbal. History obtained primarily from family. Patient lives with her parents. She was noted to have seizure activity with fever at home.
On arrival patient was hypoxic. 74 percentage on room air. Patient requiring min better mask. Patient received fluids and Zosyn in ER. Admitting for further management
#Transient hypoxemia
#Sepsis
#Fever
#Probable aspiration during seizure episode
Appreciate ID input, patient probably has pneumonia versus pneumonitis
Procalcitonin is elevated, normal white blood cell count with left shift
Continue Zosyn as per ID
Check sputum culture if possible
Trend fever/WBC
#Chronic dysphagia
#Probable aspiration during seizure episode
# History for esophageal web with possible dysphagia
She is usually on a pur�ed diet with nectar thickened liquids
Her mentation is depressed, Dobbhoff tube inserted for medications
Tube feeds started 03/26, continue SPL
#Mild transaminitis from infection
Trend LFTs
#Acute on chronic hypotension
Continue midodrine 15 mg 3 times daily
Has not required any Levophed
#Cerebral Palsy
#Seizure Disorder
- Stable. Family notes that patient has frequent - though mild - breakthrough seizures.
- Continue onfi, Trileptal, tiagabin
- Seizure precaution continued
#History of Ovarian Cancer
- S/p surgery and then hormonal therapy.
- Has completed treatment x 5 years.
- Remains on letrozole at family preference.
#Functional quadriplegia due to cerebral palsy
- Dependent on family for all care
#DVT Prophylaxis: Lovenox
#Code Status: Full
Updated parents at bedside 03/26
Physical Exam
General: No acute distress, appears acutely ill
HEENT: Normocephalic, Atraumatic, EOMI, MMM
Respiratory: Clear to Auscultation bilaterally
Cardiac: Normal S1/S2, Regular Rate and Rhythm
GI: Soft, Nontender, Nondistended, Normal Bowel Sounds
Extremities: No Clubbing, Cyanosis, or Edema
Neuro: Appears lethargic
Nonverbal/nonmobile at baseline
Anticipated Discharge: > 48 hours
Subjective/Interval History
-
Date of Service: March 26, 2024
Patient continues to have fever overnight. She was doing better yesterday during the day, but her mentation gets worse when she has fever. No vomiting.
Objective Data
-
Labs:
Laboratory Results
03/26/24
04:53
WBC 8.9
Hgb 12.4
Hct 37.1
Plt Count 221
Sodium 139
Potassium 3.6
Chloride 107
Carbon Dioxide 24
BUN 13
Creatinine 0.7
Glucose 107 H
Calcium 9.5
Total Bilirubin 0.7
AST 95 H
ALT 50 H
Alkaline Phosphatase 132 H
Vital Signs:
Vital Signs
Temp Pulse Resp BP Pulse Ox
99.7 F 68 21 94/53 99
03/26/24 07:11 03/26/24 08:15 03/26/24 08:15 03/26/24 08:00 03/26/24 08:39
I&O
03/25/24 03/26/24 03/27/24
06:59 06:59 06:59
Intake Total 1350 / 1450 3420 / 3590 340 / 340
Output Total 1080 / 1080 1200 / 1200
Balance 270 / 370 2220 / 2390 340 / 340
--- NOTE | 2024-03-26 10:27 | PTCARENOTE ---
Rec'd pt at 0700. Pt nonverbal, opens eyes, moans at times. Father at bedside. Monitor SBR/SR with occas PVCs. Lungs sct coarse, pt weaned off HFNC to 10L midflow, pox 93-95%. DHT with Jevity 1.5 at goal 45ml/hr. Rectal trumpet in place draining
liquid lynn stool. Pt transferred to U [id number] via bed, father with pt.
--- NOTE | 2024-03-26 10:35 | W.PN.ID1 ---
Date of Service
Date of Service: March 26, 2024
Today's Communication
Continue antibiotics
Assessment / Plan
Fever
- ongoing, although temperature curve appears to be trending down.
- ?infection ?ongoing aspiration ?drug fever ?other
Hypoxemia; improved
Suspected aspiration; PNA versus pneumonitis
Normal white count with left shift
Elevated procalcitonin
Cerebral Palsy
Ovarian Cancer s/p Surgery and Hormone Treatment
Seizure Disorder with reported daily seizures
Recommendations:
Continue with Zosyn for the present.
Follow white count and temperature curve.
Check sputum culture if at all possible.
Follow CXR for stability/improvement.
Strict aspiration precautions
����������������������������������������������������������
Chief Complaint
-: Fever
Subjective / Review of Systems
Patient seen and examined. Overall no significant changes from yesterday, although breathing has improved. Temperature curve appears to be trending down.
Vital Signs / Physical Exam
Vital Signs
Vital Signs
Temp Pulse Resp BP Pulse Ox
99.7 F 54 24 117/72 98
03/26/24 07:11 03/26/24 09:45 03/26/24 09:45 03/26/24 09:00 03/26/24 09:45
Physical Exam
Physical Exam:
Constitutional: Chronically Ill and Non-toxic
Eyes: Sclera Anicteric
Cardiovascular: S1/S2; Negative S3/S4
Pulmonary: Coarse and Other (Mildly labored.)
Gastrointestinal: Soft, Non Distended and Normal Bowel Sounds
Extremities: Negative Edema or Erythema
Neurological: Awake
Psychological: Calm
Objective Data
Lab Data
Lab Results
03/26/24 04:53
03/26/24 04:53
Lactic Acid Cancelled 03/23/24 23:00
Total Bilirubin 0.7 mg/dl (0.2-1.3) 03/26/24 04:53
AST 95 U/L (14-36) H 03/26/24 04:53
ALT 50 U/L (0-35) H 03/26/24 04:53
Alkaline Phosphatase 132 U/L (38-126) H 03/26/24 04:53
Most recent labs reviewed.
Micro Results:
03/23/24 20:32 Blood Culture - Preliminary
Blood/Venous No Growth in 48 hours- Final report to follow
03/23/24 20:36 Blood Culture - Preliminary
Blood/Venous No Growth in 48 hours- Final report to follow
03/23/24 19:22 Influenza Types A & B (SAMARA) - Final
Nasal Swab Negative for Influenza A & B, NAAT
Negative results must be combined with clinical observations
and patient history.
Nucleic Acid Amplification test (NAAT)performed on the
[email or web address] platform.
Imaging:
03/24/2024 CXR (portable): Dobbhoff tube has been placed, and tip projects over the midline to right paramedian upper abdomen, likely within the distal stomach or the proximal aspect of the duodenum. Patchy bilateral proximal airspace opacities,
fairly extensive, and these appear increased compared to most recent radiograph of March 23, 2024.
--- NOTE | 2024-03-26 17:10 | PTCARENOTE ---
Rec'd pt on transfer from ICU. Tylenol given for fever. Pt remains on 10L MF. family at bedside. Rectal trumpet draining without leakage. skin remains intact. Vital signs stable.
[2024-03-26] MEDS: LOVENOX 40 MG SC (17:27)
[2024-03-26] MEDS: SINGULAIR 10 MG PO (21:05)
[2024-03-26] MEDS: FEMARA 2.5 MG PO (21:05)
[2024-03-26] MEDS: NON-FORMULARY ITEM 4 MG PO (21:05)
[2024-03-27] VITALS (18 sets, daily range): BP systolic 75–142; BP diastolic 39–90
[2024-03-27] MEDS: TYLENOL ORAL SOLUTION 650 MG PO ×4 (00:05→22:40)
--- NOTE | 2024-03-27 00:09 | PTCARENOTE ---
assumed care of patient, mother at bedside. pt is nonverbal but moans/grunts at times. PW and rectal trumpet in place, full bed bath given. tube feeds running, fever on and off, given PRN tylenol when indicated. pt remains on 10L midflow 96%. b/l
wrist restraints remain on patient d/t risk for pulling out dobhoff. dobhoff in right nare- placement verified. mouth care done, pt at times not allowing suctioning, educated mother on suctioning patient if needed. q2t. care ongoing.
[2024-03-27] MEDS: ZOSYN 50 IV ×4 (01:29→20:45)
[2024-03-27 04:39] LABS: Hematocrit 34.6 % (37.0-47.0); Hemoglobin 11.8 g/dL (12.0-16.0); Mean Corp Hgb Conc. 34.1 g/dL (33.0-37.0); Mean Corpuscular Hgb 29.7 pg (27.0-31.0); Mean Corpuscular Volume 87.2 fL (81.0-99.0); Mean Platelet Volume 11.1 fL (7.4-10.4); Platelet Count 249 10^3/uL (130-400); Red Blood Cell Count 3.97 10^6/uL (4.20-5.40); Red Cell Dist. Width 13.4 % (11.5-14.5); White Blood Cell Count 7.4 10^3/uL (4.8-10.8)
[2024-03-27 05:02] LABS: ALT (SGPT) 41 U/L (0-35); AST (SGOT) 61 U/L (14-36); Albumin 2.5 g/dl (3.5-5.0); Alkaline Phosphatase 123 U/L (38-126); Blood Urea Nitrogen 15 mg/dl (7-17); Calcium 8.8 mg/dl (8.4-10.2); Carbon Dioxide 27 mmol/L (22-30); Chloride 106 mmol/L (98-107); Glucose 97 mg/dl (70-99); Magnesium 1.8 mg/dl (1.6-2.3); Phosphorus 3.4 mg/dl (2.5-4.5); Potassium 3.3 mmol/L (3.5-5.1); Sodium 138 mmol/L (135-145); Total Bilirubin 0.4 mg/dl (0.2-1.3); Total Protein 5.4 g/dl (6.3-8.2); eGFR > 60.00
--- NOTE | 2024-03-27 05:30 | PTCARENOTE ---
pt with productive cough, excessive oral secretions, frequent mouth care done and frequent oral suctioning done when patient allows.
--- NOTE | 2024-03-27 06:15 | W.PN.UPDATE ---
Update Note
Progress Note Update
Patient is hypotensive 75/39 hr68 and map is 52, will give 500cc NSS bolus and morning dose of midodrine. Recheck BP 120/73 with map 87.
[2024-03-27] MEDS: NSS 500 IV (06:18)
[2024-03-27] MEDS: ProAmatine 15 MG PO ×3 (06:18→18:04)
--- NOTE | 2024-03-27 06:25 | PTCARENOTE ---
pt with soft/low BP this morning, 75/39 P-68 MAP 52. pt woken up, cuff repositioned and BP still low. notified covering [employer]- orders placed for 500ml bolus and to give morning midodrine dose early. mother at bedside and updated on plan.
[2024-03-27] MEDS: TRILEPTAL 600 MG PO ×2 (08:59→21:02)
[2024-03-27] MEDS: ONFI 10 MG PO ×2 (09:00→20:45)
--- NOTE | 2024-03-27 09:12 | W.PN.HOSP.TC ---
Today's Communication/Plan
-
Continue with NG tube feeds and antibiotics.
Continue with speech therapy-not ready for swallow eval with her secretions today.
Consult GI.
Assessment / Plan
Assessment / Plan
HPI: 48-year-old with past medical history for seizure, cerebral palsy presented to us with fever of 102 at home. She was noted to be lethargic. Family attempted to give Tylenol crushed in applesauce. She started coughing. Review of system is
limited as patient is nonverbal. History obtained primarily from family. Patient lives with her parents. She was noted to have seizure activity with fever at home.
On arrival patient was hypoxic. 74 percentage on room air. Patient requiring min better mask. Patient received fluids and Zosyn in ER. Admitting for further management
#Sepsis
#Fever
#Probable aspiration with seems to be recurrent.
Appreciate ID input, patient probably has pneumonia versus pneumonitis
Procalcitonin is elevated, normal white blood cell count with left shift
Continue Zosyn as per ID
#Chronic dysphagia
#Probable aspiration
# History for esophageal web
She is usually on a pur�ed diet with nectar thickened liquids
Recurrent admission within couple of days of discharge requiring high oxygen and bilateral pneumonia with sepsis picture all concerning for recurrent aspiration issue. Question comes as this is pharyngeal or esophageal. She is maintained on pur�ed
diet for many years now. Her VSE last week did not show any laryngeal penetration and was cleared for pureed and thick liquids but there was a esophageal web which at this time probably should be investigated. Consult GI.
#Mild transaminitis from infection
Trend LFTs-improving
#Acute on chronic hypotension
Continue midodrine 15 mg 3 times daily
Has not required any Levophed
Required fluid bolus last night. If repeat need for fluids for low blood pressure increase the fluid fluid bolus rate via NG tube
# Hypokalemia -replete K
#Cerebral Palsy
#Seizure Disorder
- Stable. Family notes that patient has frequent - though mild - breakthrough seizures.
- Continue onfi, Trileptal, tiagabin
- Seizure precaution continued
#History of Ovarian Cancer
- S/p surgery and then hormonal therapy.
- Has completed treatment x 5 years.
- Remains on letrozole at family preference.
#Functional quadriplegia due to cerebral palsy
- Dependent on family for all care
#DVT Prophylaxis: Lovenox
#Code Status: Full
Updated parents at bedside 03/27
Anticipated Discharge: > 48 hours
Subjective/Interval History
-
Date of Service: March 27, 2024
Patient nonverbal which is her baseline. She is alert .
Oral secretions noted. No acute respiratory distress.
Objective Data
-
Labs:
Laboratory Results
03/27/24
04:26
WBC 7.4
Hgb 11.8 L
Hct 34.6 L
Plt Count 249
Sodium 138
Potassium 3.3 L
Chloride 106
Carbon Dioxide 27
BUN 15
Creatinine 0.6
Glucose 97
Calcium 8.8
Total Bilirubin 0.4
AST 61 H
ALT 41 H
Alkaline Phosphatase 123
Vital Signs:
Vital Signs
Temp Pulse Resp BP Pulse Ox
99.1 F 56 25 120/73 96
03/27/24 07:40 03/27/24 06:54 03/27/24 06:54 03/27/24 06:54 03/27/24 06:54
I&O
03/26/24 03/27/24 03/28/24
06:59 06:59 06:59
Intake Total 3420 / 3590 1460 / 1460
Output Total 1200 / 1200 750 / 750
Balance 2220 / 2390 710 / 710
Review of Systems
-
Unable to obtain full review of systems at this time due to: Patient Non-verbal
Physical Exam
-
General: No Apparent Distress
Respiratory: Rhonchi (Bilateral-on anterior auscultation) and Non Labored Respirations; Negative Accessory Resp Muscle Use
Cardiac: Regular Rhythm and S1/S2
GI: Soft
Neuro: Awake and Alert
Psych: Calm
Data Reviewed
-
Labs: Labs Reviewed by me
--- NOTE | 2024-03-27 09:57 | CON.GI ---
Addendum entered and electronically signed by Geovany Greenfield MD 03/27/24 16:13:
I saw and examined the patient.
The [employer] SANDER's note was reviewed and I agree with the note.
Impression:
Fever/sepsis/elevated procalcitonin - concern for aspiration
hypoxemia with increased O2 . Oxygen saturation 94 on 8 L oxygen nasal cannula
Noted possible esophageal web seen on video swallow exam. No prior EGD as per father
Cerebral palsy, nonverbal / Seizure disorder
hx constipation with current diarrhea
elevated LFT's-transaminitis
recent foreign body found in patient's oropharynx with removal
hx ovarian CA
Plan:
Patient is currently being fed via DHT. Continue tube feeding. Aspiration precaution
Considering her current respiratory status patient will be at high risk for any endoscopic evaluation. Discussed benefits and risk of EGD with patient's father at bedside. Patient's father would like to hold off on any invasive endoscopic
procedures. ( He also declines alternate feeding modality like gastrostomy tube placement in the future as well).
Repeat speech eval once respiratory status improves
Continue further management as per medical team/ ID
If diarrhea continues will recommend stool studies
No further GI recommendation at this point. Will sign off. Please call us back if any questions
Addendum entered and electronically signed by DEBO Pruitt 03/27/24 12:09:
Pt with increased stool over last 1-2 hours will check stool studies and abdominal film
Original Note:
Consultation
-
Date/Time Consultation Requested: 03/27/24 0930
Date/Time Consultation Performed: 03/27/24 1000
Requesting Provider: Horacio Gallagher MD
Performing Provider: DEBO Fierro, Geovany Greenfield MD
Reason for Consultation: aspiration
Medical History
Chief Complaint / HPI
Chief Complaint: fever, congestion
History of Present Illness:
Pt is a 48yo with hx seizure, cerebral palsy, ovarian CA nonverbal with admission last week with fever and concern for UTI and PNA. She was seen by GI during that admission with reported clear round plastic disc in back of oropharynx with drooling
and object was removed with some improved drooling. She also completed speech eval with concern for esophageal web. EGD was discussed with family but recommended OP follow up as prior to that admission no concern for dysphagia and current pulm
status. She was discharged 03/22 and returned 03/23 with continued fever and PNA. Speech therapy has attempted to see but concern for seizures and agitation. DHT as been placed for nutrition and asked to again eval for concern of aspiration and
possible esophageal web seen on recent VSE. Pt also noted with loose stool but reviewed with nursing unclear when rectal bag was emptied last. Pt also noted with elevated LFT's with last check 03/27 with improvement keenan 0.4, AST 61, ALT 41, alk
phos 123.
Pt is non verbal per family at bedside no hx dysphagia, nausea, vomiting and possible some wt loss with 2 admission. At baseline pt with chronic constipation. Last 03/17 with large stool burden. No hx rectal bleeding with no prior EGD or
colonoscopy in past.
.
Past Medical History
Past Medical History: Cancer (ovarian cancer), Seizures and Other (cerebral palsy)
Past Surgical History: Appendectomy, Gynecological (LUCERO, BSO) and Other (vagus nerve stimulator implant )
Social History
Tobacco: Non-Smoker
Alcohol: None
Drug: None
Personal: Single
Living: With Family
Family History
Family History: Reviewed & Not Pertinent
Allergies / Home Medications
Allergy/AdvReac Type Severity Reaction Status Date / Time
brompheniramine Allergy hyper Verified 03/23/24 23:46
[From Dimetapp Cold-Allergy
(PE)]
chloral hydrate Allergy hyper Verified 03/23/24 23:46
diphenhydramine Allergy hyper Verified 03/23/24 23:46
[From Benadryl]
latex Allergy Swelling Verified 03/17/24 18:54
phenobarbital Allergy hyper Verified 03/23/24 23:46
phenylephrine Allergy hyper Verified 03/23/24 23:46
[From Dimetapp Cold-Allergy
(PE)]
phenytoin [From Dilantin] Allergy Rash Verified 03/17/24 18:54
Sulfa (Sulfonamide Allergy Hives Verified 03/17/24 18:46
Antibiotics)
topiramate [From Topamax] Allergy Rash Verified 03/17/24 18:54
�Medication �Instructions �Recorded
Lactobac no.2-Bifidobac no.1-S. 1 cap PO DAILY Gastrointestinal 03/17/24
thermo 112.5 billion cell capsule Issue
(Visbiome)
ascorbic acid (vitamin C) 500 mg 500 mg PO DAILY Supplement 03/17/24
tablet (Vitamin C)
cetirizine 10 mg tablet (Zyrtec) 10 mg PO DAILY PRN allergies 03/17/24
clobazam 10 mg tablet (Onfi) 10 mg PO BID Seizures 03/17/24
docusate sodium 50 mg/5 mL oral 100 mg PO BIDPRN PRN constipation 03/17/24
liquid
fluticasone propionate 50 2 spray intranasal DAILY Allergies 03/17/24
mcg/actuation nasal
spray,suspension
letrozole 2.5 mg tablet 2.5 mg PO HS Hormonal Agent 03/17/24
montelukast 10 mg tablet 10 mg PO HS Allergies 03/17/24
(Singulair)
nitrofurantoin macrocrystal 50 mg 50 mg PO DAILY Infection 03/17/24
capsule
oxcarbazepine 600 mg tablet 600 mg PO BID Seizures 03/17/24
(Trileptal)
polyethylene glycol 3350 17 gram 17 g PO DAILY PRN constipation 03/17/24
oral powder packet (Miralax)
sennosides 8.8 mg/5 mL oral syrup 17.6 mg PO HSPRN PRN constipation 03/17/24
(senna)
tiagabine 4 mg tablet 4 mg PO HS Seizures 03/17/24
acetaminophen 500 mg tablet 1,000 mg PO Q6H PRN mild pain 03/23/24
(Tylenol Extra Strength)
midodrine 5 mg tablet 15 mg PO BID Blood Pressure 03/23/24
Review of Systems
-
Unable to obtain full review of systems at this time due to: Patient Non Verbal
History Source: Patient and Family (family assist as patient non verbal )
Constitutional: Reports Weight Loss (? few lbs with admission )
EENT: Reports No Symptoms
Respiratory: Reports Other (some sneezing occasional )
Abdomen/GI: Reports Diarrhea and Constipated
: Reports No Symptoms
Musculoskeletal: Reports No Symptoms
Skin: Reports No Symptoms
Neurological: Reports Weakness
Endocrine: Reports No Symptoms
Hematologic/Lymphatic: Reports No Symptoms
Vital Signs
Temp Pulse Resp BP Pulse Ox
99.1 F 67 22 125/69 95
03/27/24 07:40 03/27/24 08:00 03/27/24 08:00 03/27/24 08:00 03/27/24 09:43
Physical Exam
Exam
General: Well Developed, Well Nourished and Other (non verbal )
HEENT: Normocephalic and Anicteric
Respiratory: Rhonchi and Other (decreased )
Cardiac: Regular Rhythm
GI: Soft, Non Tender and Non Distended
Musculoskeletal: No Clubbing and No Cyanosis
Skin: Warm and Dry
Neuro: Awake, Alert and Other (non verbal )
Psych: Calm
Results
WBC 7.4 10^3/uL (4.8-10.8) 03/27/24 04:26
Hgb 11.8 g/dL (12.0-16.0) L 03/27/24 04:26
Hct 34.6 % (37.0-47.0) L 03/27/24 04:26
MCV 87.2 fL (81.0-99.0) 03/27/24 04:26
Plt Count 249 10^3/uL (130-400) 03/27/24 04:26
Absolute Neuts (auto) 7.9 10^3/uL (1.4-6.5) H 03/23/24 20:32
Sodium 138 mmol/L (135-145) 03/27/24 04:26
Potassium 3.3 mmol/L (3.5-5.1) L 03/27/24 04:26
Chloride 106 mmol/L (98-107) 03/27/24 04:26
Carbon Dioxide 27 mmol/L (22-30) 03/27/24 04:26
BUN 15 mg/dl (7-17) 03/27/24 04:26
Creatinine 0.6 mg/dL (0.6-1.0) 03/27/24 04:26
Calcium 8.8 mg/dl (8.4-10.2) 03/27/24 04:26
Total Bilirubin 0.4 mg/dl (0.2-1.3) 03/27/24 04:26
AST 61 U/L (14-36) H 03/27/24 04:26
ALT 41 U/L (0-35) H 03/27/24 04:26
Alkaline Phosphatase 123 U/L (38-126) 03/27/24 04:26
Diagnostic Image Results:
03/17/24 CT Chest/abd/pel W Iv Cont
Bilateral pneumonia.
Large amount of stool in the colon consistent with constipation.
Multiple bilateral hypodense lesions in the kidneys consistent with cysts. Mild caliectasis in the right kidney.
Diffuse urinary bladder wall thickening consistent with the history of UTI.
03/20/24 VSE
1. IDDSI Level 4 Puree, IDDSI Level 2 (Mildly Thick Liquids)
2. FULL SUPERVISION and ASSISTANCE
3. Strategies: upright to 90 degrees, single sips/bites via tsp or straw, slow rate, ensure patient swallows before next sip/bite, oral care after PO intake with suctioning as needed, reflux precautions
4. Oral care 3x daily
5. GI consult given concern for esophageal web per radiologist
6. Dysphagia therapy for follow up for patient/caregiver education.
03/24/24 CXR
Dobbhoff tube has been placed, and tip projects over the midline to right paramedian upper abdomen, likely within the distal stomach or the proximal aspect of the duodenum.
Patchy bilateral proximal airspace opacities, fairly extensive, and these appear increased compared to most recent radiograph of March 23, 2024.
Prior GI Procedures:
EGD: none
Colonoscopy: none
Assessment / Plan
-
Pt is a 48yo with hx seizure, cerebral palsy, ovarian CA nonverbal with admission last week with fever and concern for UTI and PNA. She was seen by GI during that admission with reported clear round plastic disc in back of oropharynx with drooling
and object was removed with some improved drooling. She also completed speech eval with concern for esophageal web. EGD was discussed with family but recommended OP follow up as prior to that admission no concern for dysphagia and current pulm
status. She was discharged 03/22 and returned 03/23 with continued fever and PNA. Speech therapy has attempted to see but concern for seizures and agitation. DHT as been placed for nutrition and asked to again eval for concern of aspiration and
possible esophageal web seen on recent VSE. Pt also noted with loose stool but reviewed with nursing unclear when rectal bag was emptied last. Pt also noted with elevated LFT's with last check 03/27 with improvement keenan 0.4, AST 61, ALT 41, alk
phos 123.
Impression:
Fever/sepsis/elevated procalcitonin
concern for aspiration
hypoxemia with increased O2
Possible esophageal web seen on video swallow exam
nutrition with current DHT feedings
hx constipation with current diarrhea
hypotension after admission
elevated LFT's
recent foreign body found in patient's oropharynx with removal
other medical problems:
Recurrent UTIs
Cerebral palsy, nonverbal
Seizure disorder
hx ovarian CA
Plan:
Pt with current concern for PNA with hypoxemia with possible aspiration related to recent noted web vs other
continue tube feeds for now
await repeat speech evaluation-- held today with continued secretions and hypoxemia
hold on EGD for now as still on 8L NC sat 94% consider eventually when hypoxia improved
pt also with diarrhea and hx constipation -- possible antibiotic related, overflow vs other
reviewed with nursing will track output if remains high would check stool studies and abd film to exclude overflow
family updated at bedside
-
-
Thank you for consultation and allowing me to participate in the patient's care. Please call the precision grinder external GI physician during the after hours with any questions or concerns.
[2024-03-27] MEDS: KCL ELIXIR 40 MEQ TUBE (10:44)
--- NOTE | 2024-03-27 12:21 | CM ---
Patient with Hx cerebral palsy, non-verbal with Dx sepsis. O2 8L midflow. IV fluid bolus today. Receiving IV Abx. Dobhoff tube - Jevity feeds. Suctioning for secretions.
Patient may benefit from PT/OT Evals when medically appropriate---> message to Dr Gallagher.
Plan home possibly with VN.
--- NOTE | 2024-03-27 13:36 | W.PN.ID1 ---
Date of Service
Date of Service: March 27, 2024
Today's Communication
Continue antibiotics
Assessment / Plan
Fever
- ongoing, although temperature curve trending down.
Hypoxemia; improved
Suspected aspiration PNA
Normal white count with left shift
Elevated procalcitonin
Cerebral Palsy
Ovarian Cancer s/p Surgery and Hormone Treatment
Seizure Disorder with reported daily seizures
Recommendations:
Continue with Zosyn for the present.
Follow white count and temperature curve.
Check sputum culture if at all possible.
Follow CXR for stability/improvement.
Strict aspiration precautions
����������������������������������������������������������
Chief Complaint
-: Fever and Pneumonia
Subjective / Review of Systems
Appears somewhat improved today. No significant events overnight.
Vital Signs / Physical Exam
Vital Signs
Vital Signs
Temp Pulse Resp BP Pulse Ox
99.0 F 79 27 116/75 96
03/27/24 11:18 03/27/24 13:02 03/27/24 12:00 03/27/24 13:02 03/27/24 12:00
Physical Exam
Constitutional: Comfortable, Chronically Ill and Non-toxic
Head: Other (Nasal Dobbhoff in place.)
Eyes: Sclera Anicteric
Cardiovascular: S1/S2; Negative S3/S4
Pulmonary: Rhonchi (Few; scattered) and Coarse; Negative Non Labored
Gastrointestinal: Non Distended and Normal Bowel Sounds
Neurological: Awake, Alert and Other (Nonverbal)
Objective Data
Lab Data
Lab Results
03/27/24 04:26
03/27/24 04:26
Lactic Acid Cancelled 03/23/24 23:00
Total Bilirubin 0.4 mg/dl (0.2-1.3) 03/27/24 04:26
AST 61 U/L (14-36) H 03/27/24 04:26
ALT 41 U/L (0-35) H 03/27/24 04:26
Alkaline Phosphatase 123 U/L (38-126) 03/27/24 04:26
Most recent labs reviewed.
Micro Results:
03/27/24 13:11 Salmonella/Shigella Culture - Pending
Feces/Stool Campylobacter Culture - Pending
Shiga Toxin Test - Pending
Stool Leukocytes - Pending
03/27/24 13:11 Cryptosporidium/Giardia - Pending
Feces/Stool C. difficile GDH Antigen & Toxins - Pending
03/23/24 20:32 Blood Culture - Preliminary
Blood/Venous No Growth in 72 hours- Final report to follow
03/23/24 20:36 Blood Culture - Preliminary
Blood/Venous No Growth in 72 hours- Final report to follow
03/23/24 19:22 Influenza Types A & B ([facility]) - Final
Nasal Swab Negative for Influenza A & B, NAAT
Negative results must be combined with clinical observations
and patient history.
Nucleic Acid Amplification test (NAAT)performed on the
[employer] platform.
Imaging:
03/24/2024 CXR (portable): Dobbhoff tube has been placed, and tip projects over the midline to right paramedian upper abdomen, likely within the distal stomach or the proximal aspect of the duodenum. Patchy bilateral proximal airspace opacities,
fairly extensive, and these appear increased compared to most recent radiograph of March 23, 2024.
[2024-03-27] MEDS: LOVENOX 40 MG SC (18:04)
[2024-03-27] MEDS: TRILEPTAL PO (20:45)
--- NOTE | 2024-03-27 21:17 | PTCARENOTE ---
Pt recived from day RN. Dad at bedside. Pt maintained in bilateral soft limb restraints due to Pt attempting to remove dobhoff. Pt NSR on monitor. Pt pleasant. No acute changes at this time.
[2024-03-27] MEDS: FEMARA 2.5 MG PO (22:40)
[2024-03-27] MEDS: SINGULAIR 10 MG PO (22:40)
[2024-03-27] MEDS: NON-FORMULARY ITEM 4 MG PO (22:41)
[2024-03-28] VITALS (20 sets, daily range): BP systolic 80–162; BP diastolic 48–94
[2024-03-28] MEDS: ZOSYN 50 IV ×4 (02:16→20:35)
--- NOTE | 2024-03-28 03:41 | PTCARENOTE ---
New container of [employer] 1.5 hung as well as new tubing. Tube feeds running at 45 ml/hr with a 25 ml flush.
[2024-03-28 05:33] LABS: Hematocrit 31.9 % (37.0-47.0); Hemoglobin 11.2 g/dL (12.0-16.0); Mean Corp Hgb Conc. 35.1 g/dL (33.0-37.0); Mean Corpuscular Hgb 29.7 pg (27.0-31.0); Mean Corpuscular Volume 84.6 fL (81.0-99.0); Platelet Count 214 10^3/uL (130-400); Red Blood Cell Count 3.77 10^6/uL (4.20-5.40); Red Cell Dist. Width 13.6 % (11.5-14.5); White Blood Cell Count 5.7 10^3/uL (4.8-10.8)
[2024-03-28 06:01] LABS: Magnesium 1.9 mg/dl (1.6-2.3); Phosphorus 3.5 mg/dl (2.5-4.5)
[2024-03-28] MEDS: TYLENOL ORAL SOLUTION 650 MG PO (06:26)
--- NOTE | 2024-03-28 08:21 | W.PN.HOSP.TC ---
Today's Communication/Plan
-
Repeat chest x-ray
Consult neurology
Assessment / Plan
Assessment / Plan
HPI: 48-year-old with past medical history for seizure, cerebral palsy presented to us with fever of 102 at home. She was noted to be lethargic. Family attempted to give Tylenol crushed in applesauce. She started coughing. Review of system is
limited as patient is nonverbal. History obtained primarily from family. Patient lives with her parents. She was noted to have seizure activity with fever at home.
On arrival patient was hypoxic. 74 percentage on room air. Patient requiring min better mask. Patient received fluids and Zosyn in ER. Admitting for further management
#Sepsis
#Fever
#Probable aspiration with seems to be recurrent.
Ongoing fevers while on antibiotics for pneumonia-repeat a chest x-ray to rule out any complicated scenarios of pneumonia including pleural effusions.
Appreciate ID input, patient probably has pneumonia versus pneumonitis
Procalcitonin is elevated, normal white blood cell count with left shift
Continue Zosyn as per ID
#Chronic dysphagia
#Probable aspiration
# History for esophageal web
She is usually on a pur�ed diet with nectar thickened liquids
Recurrent admission within couple of days of discharge requiring high oxygen and bilateral pneumonia with sepsis picture all concerning for recurrent aspiration issue. Question comes as this is pharyngeal or esophageal. She is maintained on pur�ed
diet for many years now. Her VSE last week did not show any laryngeal penetration and was cleared for pureed and thick liquids but there was a esophageal web which at this time probably should be investigated.
GI input noted-they had a discussions with the family regarding esophageal web evaluation with endoscopy. With the risk of anesthesia and no wishes of PEG tube esophageal evaluation is on hold. GI signed off.
With dysphagia being now primary issue and a change from her baseline before attributing it to progression of CP will ask Neuro eval to looking to increasing freq of sz ( per family)
#Mild transaminitis from infection
Trend LFTs-improving
#Acute on chronic hypotension
Continue midodrine 15 mg 3 times daily
Has not required any Levophed
#Cerebral Palsy
#Seizure Disorder
- Stable. Family notes that patient has frequent - though mild - breakthrough seizures.
- Continue onfi, Trileptal, tiagabin
- Seizure precaution continued
#History of Ovarian Cancer
- S/p surgery and then hormonal therapy.
- Has completed treatment x 5 years.
- Remains on letrozole at family preference.
#Functional quadriplegia due to cerebral palsy
- Dependent on family for all care
#DVT Prophylaxis: Lovenox
#Code Status: Full
Updated father at bedside
Total time spent on today's encounter was 52 minutes which included time spent in counseling the patient/family regarding diagnosis and treatment plan as listed above, goals of care, and symptom management. Case was discussed with nursing staff,
specialists, and care coordinators/case management. All labs and imaging personally reviewed by me. Remainder the time spent in detailed review of previous records, lab data, imaging, and other medical provider documentation.
Anticipated Discharge: > 48 hours
Subjective/Interval History
-
Date of Service: March 28, 2024
Patient was sleepy but arousable. Calm.
Dad at bedside who was with her last night-there was issues with blood pressure which got corrected apparently. She was also having fevers last night.
Objective Data
-
Labs:
Laboratory Results
03/28/24
05:27
WBC 5.7
Hgb 11.2 L
Hct 31.9 L
Plt Count 214
Vital Signs:
Vital Signs
Temp Pulse Resp BP Pulse Ox
99.5 F 73 17 107/66 97
03/28/24 03:20 03/28/24 06:00 03/28/24 06:00 03/28/24 06:00 03/28/24 06:00
I&O
03/27/24 03/28/24 03/29/24
06:59 06:59 06:59
Intake Total 1460 / 1460 550 / 550
Output Total 750 / 750 3725 / 3725
Balance 710 / 710 -3175 / -3175
Review of Systems
-
Unable to obtain full review of systems at this time due to: Patient Non-verbal
Physical Exam
-
General: No Apparent Distress
HEENT: Moist Mucous Membranes
Respiratory: Rhonchi (Anterior auscultation-bilaterally) and Non Labored Respirations; Negative Accessory Resp Muscle Use
Cardiac: Regular Rhythm and S1/S2; Negative Tachycardic
GI: Soft
Psych: Calm
Data Reviewed
-
Labs: Labs Reviewed by me
--- NOTE | 2024-03-28 09:03 | CON.NEURO4 ---
Addendum entered and electronically signed by Carlos Enrique Devine MD 03/28/24 11:06:
Studies reviewed.
I have personally examined the patient. I reviewed and agree with the MOLD DUMPER's Note.
My addenda:
Minimally arousable, noninteractive. No acute distress. In two point restraints
Speech intermittent vocalizations with nonwords, moaning. Intermittent teeth grinding
Does not follow any requests. No tremor.
Extra-ocular movements grossly intact.
Facial movements full and symmetric. Hearing unable to assess.
Normal UE movements bilaterally.
Neck: full ROM.
Chest: no dyspnea
Heart: no JVD
Ext: (-) Clubbing, (-) Cyanosis, (-) Edema
IMPRESSIONS/RECOMMENDATIONS:
Progressive worsening of dysphagia
Unclear if this represents intractable epilepsy producing less ability to protect airway or is the patient having worsening airway protection due to other infections leading to decline mental status
With the patient's history of intractable epilepsy, would not at this time make changes significantly to the patient's antiseizure regimen although reconsideration for these medications may be given by her usual outpatient neurologist, Marcelo Meyer
No clear indication to suspect an additional neurodegenerative disorder or dysfunction such as myasthenia gravis at this time
Check levels of current antiseizure medications, particularly oxcarbazepine
Attempt to provide vitamin D in hopes of reducing recurrent infections and risk
D/W patient / family
Patient will need to follow with her usual outpatient neurologist.
Original Note:
Documented by User: Tereza Leo NP 03/28/24 10:39
Consultation - Neurology 4
-
CONSULTING PHYSICIAN: Carlos Enrique Devine MD
REFERRING PHYSICIAN: Hospitalists/Dr. Gallagher
DICTATED BY: DEBO Cisneros
DATE/TIME OF REQUEST: 03/28/24
DATE/TIME OF CONSULTATION: 03/28/24
Reason for Consultation: Concern for seizures worsening dysphagia
History of Present Illness:
This is a 48-year-old female who has presented to the hospital on 03/23/24 with report of fever, lethargy, and decreased oral intake. Patient was recently hospitalized here from 03/17/24-03/22/24 with pneumonitis, possible recurrent UTI, poor oral
intake, and fever. Video swallow was obtained during previous admission and demonstrates penetration without aspiration, and an esophageal web. During hospitalization her chronic hypotension worsened and her home midodrine was increased from 15mg
BID to TID. She was discharged home after completing a course of Zosyn and was at her baseline per her father at bedside. At baseline, she is nonverbal, does not follow commands, and minimally moves her extremities left side>right side. On 03/23/24
her parents noted that her typical seizure activity was more frequent, she was more lethargic, and her temp was 101F. On arrival in the ER her rectal temp was 104.5. CXR was obtained and demonstrates bilateral pneumonia, Zosyn was restarted.
Neurology is consulted to determine if seizure activity is playing a role in worsening swallowing function.
Patient's father at bedside reports that the patient started having seizures about 20 years ago. She has had 2-3 generalized seizures total since seizure onset. She mostly has atonic seizures/'drop seizures' in which her head suddenly drops forward
and she is unresponsive for a few seconds. This typically repeats every couple of minutes for 15 minutes before resolving. She typically has this happen every morning and evening, and sometimes her parents get a report from her daytime care facility
that it happens there. Sometimes it lasts for 3-4 minutes and she has generalized weakness following the event. More recently she's been having more frequent cycles of this. She has been tried on a total of 10-15 antiseizure medications in the past,
her father cannot recall all of the names of them. Currently she is taking clobazam 10mg BID, oxcarbazepine 600mg BID, and tiagabine 4mg HS. She is followed as an outpatient by Neurology Dr. Marcelo Meyer, she last saw his MOLD DUMPER about one month ago.
Her father reports that Dr. Meyer was hoping to start the patient on Xcopri but she can only take her pills crushed due to chronic dysphagia and Xcopri cannot be crushed at this time. The patient has been on a pureed diet for several years but
overall has a good appetite, unlike how she is currently. Her father also reports that for several weeks she has been drooling excessively.
Past Medical History: Cerebral palsy, seizure disorder, chronic dysphagia, esophageal web, aspiration pneumonia, recurrent UTIs, ovarian cancer, functional quadriplegia
Surgical History: inactive vagus nerve stimulator x10 years
Family History: Reviewed and noncontributory.
Social History: No alcohol, tobacco, or illicit drug use.
Allergies: See below.
Home Medications: See below.
Review of Symptoms:
Per the HPI. I am unable to obtain a complete review of systems�because of patient's inability to provide history.
Physical Exam:
The patient is afebrile, abdomen is nondistended, breathing is unlabored, skin is warm and dry, no edema.
Neurologic Examination:
The patient is drowsy, opens eyes to light touch. Nonverbal, makes incomprehensible sounds. Does not follow any commands. On cranial nerve assessment, pupils are 3 mm bilateral, round and reactive to light and accommodation. SHERRIE visual barkley and
EOMs, no apparent gaze deviation. There is no apparent facial asymmetry at rest. SHERRIE hearing. SHERRIE tongue and uvula. Sternocleidomastoid strengths are full bilaterally. Moves all extremities spontaneously, left side >right side. SHERRIE drift. No
involuntary movement noted. Deep tendon reflexes are absent bilateral upper and lower extremities and Babinski is absent bilaterally. SHERRIE sensation, DBS, and coordination.
Lab Results: See below.
Neuro Imaging: None.
Differentials for the patient's presentation include:
1. Chronic dysphagia likely worsened secondary to TME in the setting of recurrent infections and frequent hypotension.
2. Degenerative problem possibly causing worsening of baseline dysphagia.
3. Increased seizure activity likely due to underlying recurrent infection, unclear if increase in seizure activity is worsening patient's mentation/ability to swallow.
4. Esophageal web.
Recommendations:
-Would continue patient's existing home antiseizure medication regimen and not make any changes at this time given lack of medical records and inability to provide patient with Xcopri.
-Continue to treat underlying infection per ID.
-Avoid hypotension. Continue midodrine 15mg TID, consider adding Florinef if resolution of infection does not improve hypotension.
-Do not see a role for further neurological imaging at this time.
-Continue ST evaluations.
-DVT prohpylaxis.
-Patient will need follow-up with Dr. Meyer as an outpatient.
Discussed patient care with: Dr. Devine, patient's father
Vital Signs and Labs
-
Vital Signs and Labs:
Vital Signs
Temp Pulse Resp BP Pulse Ox
99.8 F 73 17 107/66 97
03/28/24 07:49 03/28/24 06:00 03/28/24 06:00 03/28/24 06:00 03/28/24 06:00
Lab Results
03/28/24 05:27
03/27/24 04:26
Sodium 138 mmol/L (135-145) 03/27/24 04:26
Potassium 3.3 mmol/L (3.5-5.1) L 03/27/24 04:26
BUN 15 mg/dl (7-17) 03/27/24 04:26
Glucose 97 mg/dl (70-99) 03/27/24 04:26
Calcium 8.8 mg/dl (8.4-10.2) 03/27/24 04:26
Phosphorus 3.5 mg/dl (2.5-4.5) 03/28/24 05:27
Medications
-
Active Medications
Generic Name Dose Route Start Last Admin
Trade Name Freq PRN Reason Stop Dose Admin
Acetaminophen 650 mg 03/23/24 23:44 03/24/24 17:19
Acetaminophen 650 Mg Rectal Suppository RECTAL 04/20/24 23:43 650 mg
Q4HPRN PRN Administration
mild pain/JACKSON/temp> 100.4F
Acetaminophen 650 mg 03/25/24 09:37 03/28/24 06:26
Acetaminophen (Oral Solution) 650 Mg/20.3 Ml Cup PO 04/22/24 09:36 650 mg
Q4HPRN PRN Administration
fever
Albuterol/Ipratropium 3 ml 03/23/24 23:44 03/25/24 06:30
Ipratropium 0.5/Albuterol 3 Mg (3 Ml Ampul) INH 3 ml
R Q4HPRN PRN Administration
shortness of breath
Protocol
Bisacodyl 10 mg 03/23/24 23:44
Bisacodyl 10 Mg Rectal Suppository RECTAL 04/20/24 23:43
[id number] PRN
constipation
Clobazam 10 mg 03/24/24 08:00 03/28/24 10:09
Clobazam 10 Mg (Non-Form) Tablet PO 04/21/24 07:59 10 mg
BID MARII Administration
Enoxaparin Sodium 40 mg 03/24/24 18:00 03/27/24 18:04
Enoxaparin Sodium 40 Mg/0.4 Ml Syringe SC 04/21/24 17:59 40 mg
QPM MARII Administration
Piperacillin Sod/Tazobactam Sod 3.375 gram in 50 mls @ 100 mls/hr 03/24/24 14:00 03/28/24 10:10
Zosyn IV 50 mls
Q6H MARII Administration
Sodium Chloride 500 mls @ 500 mls/hr 03/28/24 10:09 03/28/24 10:20
Nss IV 03/28/24 11:08 500 mls
BOLUS ONE Administration
Letrozole 2.5 mg 03/23/24 23:44 03/27/24 22:40
Letrozole 2.5 Mg (Non-Form) Tablet PO 04/20/24 23:43 2.5 mg
HS MARII Administration
Midodrine 15 mg 03/25/24 18:00 03/28/24 10:09
Midodrine 5 Mg Tablet PO 04/22/24 17:59 15 mg
TID@0800,1300,1800 MARII Administration
Montelukast Sodium 10 mg 03/23/24 23:44 03/27/24 22:40
Montelukast Sodium 10 Mg Tablet PO 04/20/24 23:43 10 mg
HS MARII Administration
*Pt Own Medication* 0 mg 03/24/24 22:00 03/27/24 22:41
Tiagabine 4 Mg PO 04/21/24 21:59 4 mg
Tablet; 1 Tab Po Hs HS MARII Administration
Oxcarbazepine 600 mg 03/24/24 08:00 03/28/24 10:09
Oxcarbazepine 300 Mg Tablet PO 04/21/24 07:59 600 mg
BID MARII Administration
Polyethylene Glycol 17 grams 03/23/24 23:44
Polyethylene Glycol Powder 17 Grams Packet PO 04/20/24 23:43
DAILYPRN PRN
constipation
Senna/Docusate Sodium 1 tablet 03/23/24 23:44
Docusate W/Senna (Kim-Colace) Tablet PO 04/20/24 23:43
BIDPRN PRN
constipation
Sodium Chloride 0 flush 03/23/24 22:00
Sodium Chloride 0.9% (Flush) Syringe IV 04/20/24 21:59
PER PROTOCOL MARII
Home Medications
�Medication �Instructions �Recorded
Lactobac no.2-Bifidobac no.1-S. 1 cap PO DAILY Gastrointestinal 03/17/24
thermo 112.5 billion cell capsule Issue
(Visbiome)
ascorbic acid (vitamin C) 500 mg 500 mg PO DAILY Supplement 03/17/24
tablet (Vitamin C)
cetirizine 10 mg tablet (Zyrtec) 10 mg PO DAILY PRN allergies 03/17/24
clobazam 10 mg tablet (Onfi) 10 mg PO BID Seizures 03/17/24
docusate sodium 50 mg/5 mL oral 100 mg PO BIDPRN PRN constipation 03/17/24
liquid
fluticasone propionate 50 2 spray intranasal DAILY Allergies 03/17/24
mcg/actuation nasal
spray,suspension
letrozole 2.5 mg tablet 2.5 mg PO HS Hormonal Agent 03/17/24
montelukast 10 mg tablet 10 mg PO HS Allergies 03/17/24
(Singulair)
nitrofurantoin macrocrystal 50 mg 50 mg PO DAILY Infection 03/17/24
capsule
oxcarbazepine 600 mg tablet 600 mg PO BID Seizures 03/17/24
(Trileptal)
polyethylene glycol 3350 17 gram 17 g PO DAILY PRN constipation 03/17/24
oral powder packet (Miralax)
sennosides 8.8 mg/5 mL oral syrup 17.6 mg PO HSPRN PRN constipation 03/17/24
(senna)
tiagabine 4 mg tablet 4 mg PO HS Seizures 03/17/24
acetaminophen 500 mg tablet 1,000 mg PO Q6H PRN mild pain 03/23/24
(Tylenol Extra Strength)
midodrine 5 mg tablet 15 mg PO BID Blood Pressure 03/23/24
Allergies
-
Allergies
Allergy/AdvReac Type Severity Reaction Status Date / Time
brompheniramine Allergy hyper Verified 03/23/24 23:46
[From Dimetapp Cold-Allergy
(PE)]
chloral hydrate Allergy hyper Verified 03/23/24 23:46
diphenhydramine Allergy hyper Verified 03/23/24 23:46
[From Benadryl]
latex Allergy Swelling Verified 03/17/24 18:54
phenobarbital Allergy hyper Verified 03/23/24 23:46
phenylephrine Allergy hyper Verified 03/23/24 23:46
[From Dimetapp Cold-Allergy
(PE)]
phenytoin [From Dilantin] Allergy Rash Verified 03/17/24 18:54
Sulfa (Sulfonamide Allergy Hives Verified 03/17/24 18:46
Antibiotics)
topiramate [From Topamax] Allergy Rash Verified 03/17/24 18:54

Documented by User: Carlos Enrique Devine MD 03/28/24 10:49
Consultation - Neurology 4
-
CONSULTING PHYSICIAN: Carlos Enrique Devine MD
REFERRING PHYSICIAN: Hospitalists/Dr. Gallagher
DICTATED BY: DEBO Cisneros
DATE/TIME OF REQUEST: 03/28/24
DATE/TIME OF CONSULTATION: 03/28/24
Reason for Consultation: Concern for seizures worsening dysphagia
History of Present Illness:
This is a 48-year-old female who has presented to the hospital on 03/23/24 with report of fever, lethargy, and decreased oral intake. Patient was recently hospitalized here from 03/17/24-03/22/24 with pneumonitis, possible recurrent UTI, poor oral
intake, and fever. Video swallow was obtained during previous admission and demonstrates penetration without aspiration, and an esophageal web. During hospitalization her chronic hypotension worsened and her home midodrine was increased from 15mg
BID to TID. She was discharged home after completing a course of Zosyn and was at her baseline per her father at bedside. At baseline, she is nonverbal, does not follow commands, and minimally moves her extremities left side>right side. On 03/23/24
her parents noted that her typical seizure activity was more frequent, she was more lethargic, and her temp was 101F. On arrival in the ER her rectal temp was 104.5. CXR was obtained and demonstrates bilateral pneumonia, Zosyn was restarted.
Neurology is consulted to determine if seizure activity is playing a role in worsening swallowing function.
Patient's father at bedside reports that the patient started having seizures about 20 years ago. She has had 2-3 generalized seizures total since seizure onset. She mostly has atonic seizures/'drop seizures' in which her head suddenly drops forward
and she is unresponsive for a few seconds. This typically repeats every couple of minutes for 15 minutes before resolving. She typically has this happen every morning and evening, and sometimes her parents get a report from her daytime care facility
that it happens there. Sometimes it lasts for 3-4 minutes and she has generalized weakness following the event. More recently she's been having more frequent cycles of this. She has been tried on a total of 10-15 antiseizure medications in the past,
her father cannot recall all of the names of them. Currently she is taking clobazam 10mg BID, oxcarbazepine 600mg BID, and tiagabine 4mg HS. She is followed as an outpatient by Neurology Dr. Marcelo Meyer, she last saw his MOLD DUMPER about one month ago.
Her father reports that Dr. Meyer was hoping to start the patient on Xcopri but she can only take her pills crushed due to chronic dysphagia and Xcopri cannot be crushed at this time. The patient has been on a pureed diet for several years but
overall has a good appetite, unlike how she is currently. Her father also reports that for several weeks she has been drooling excessively.
Past Medical History: Cerebral palsy, seizure disorder, chronic dysphagia, esophageal web, aspiration pneumonia, recurrent UTIs, ovarian cancer, functional quadriplegia
Surgical History: inactive vagus nerve stimulator x10 years
Family History: Reviewed and noncontributory.
Social History: No alcohol, tobacco, or illicit drug use.
Allergies: See below.
Home Medications: See below.
Review of Symptoms:
Per the HPI. I am unable to obtain a complete review of systems�because of patient's inability to provide history.
Physical Exam:
The patient is afebrile, abdomen is nondistended, breathing is unlabored, skin is warm and dry, no edema.
Neurologic Examination:
The patient is drowsy, opens eyes to light touch. Nonverbal, makes incomprehensible sounds. Does not follow any commands. On cranial nerve assessment, pupils are 3 mm bilateral, round and reactive to light and accommodation. SHERRIE visual barkley and
EOMs, no apparent gaze deviation. There is no apparent facial asymmetry at rest. SHERRIE hearing. SHERRIE tongue and uvula. Sternocleidomastoid strengths are full bilaterally. Moves all extremities spontaneously, left side >right side. SHERRIE drift. No
involuntary movement noted. Deep tendon reflexes are absent bilateral upper and lower extremities and Babinski is absent bilaterally. SHERRIE sensation, DBS, and coordination.
Lab Results: See below.
Neuro Imaging: None.
Differentials for the patient's presentation include:
1. Chronic dysphagia likely worsened secondary to TME in the setting of recurrent infections and frequent hypotension.
2. Degenerative problem possibly causing worsening of baseline dysphagia.
3. Increased seizure activity likely due to underlying recurrent infection, unclear if increase in seizure activity is worsening patient's mentation/ability to swallow.
4. Esophageal web.
Recommendations:
-Would continue patient's existing home antiseizure medication regimen and not make any changes at this time given lack of medical records and inability to provide patient with Xcopri.
-Continue to treat underlying infection per ID.
-Avoid hypotension. Continue midodrine 15mg TID, consider adding Florinef if resolution of infection does not improve hypotension.
-Do not see a role for further neurological imaging at this time.
-Continue ST evaluations.
-DVT prohpylaxis.
-Patient will need follow-up with Dr. Meyer as an outpatient.
Discussed patient care with: Dr. Devine, patient's father
[2024-03-28] MEDS: TRILEPTAL 600 MG PO ×2 (10:09→20:34)
[2024-03-28] MEDS: ProAmatine 15 MG PO ×2 (10:09→14:17)
[2024-03-28] MEDS: ONFI 10 MG PO ×2 (10:09→20:35)
[2024-03-28] MEDS: NSS 500 IV (10:20)
--- NOTE | 2024-03-28 10:50 | PTCARENOTE ---
Pt hypotensive- Dr. Gallagher notified via TT. Orders received for IVF bolus. Hung as ordered, see JAN.
--- NOTE | 2024-03-28 11:26 | PTCARENOTE ---
Pt's family requesting to stop cancer treatment drug Letrozole. Father states pt's oncologist told them they can stop the drug as it has been several years and she does not need to take it anymore. Dr. Gallagher notified via TT.
--- NOTE | 2024-03-28 11:31 | CM ---
Patient seen at bedside, with dobhoff and restraints. Parents also present. Patient family plan is for patient to return to home with VN and waiver supports previously in home. CM will continue to follow for discharge planning needs.
Plan; home with family; restart of aides/waiver and VN supports
--- NOTE | 2024-03-28 13:04 | PTOTSP ---
ST Acute Care Evaluation
Pt's current presentation is fairly consistent with her presentation during her most recent VFSS on 03/20/24 - pt appears to present with a mild oropharyngeal dysphagia for the consistencies assessed.
Recommendation:
- Initiate PO diet of PUREED SOLIDS and MILDLY THICK LIQUIDS VIA TSP ONLY; meds crushed in puree.
- Aspiration and reflux precautions: HOB upright for ALL PO intake and for at least 60 minutes after PO intake; ensure pt is fully awake/alert for all intake; slow feeding; alternate liquids and solids; check oral cavity for bolus clearance; oral
care with suctioning QID; suctioning PRN for secretion management.
- HAND VIOLIN MAKER will continue to follow closely to ensure diet tolerance, trial diet upgrades, and continual assessment as to whether or not pt needs a repeat VFSS.
[2024-03-28] MEDS: VITAMIN D3 (cholecalciferol) 25 MCG PO (14:17)
--- NOTE | 2024-03-28 14:45 | PTCARENOTE ---
TF stopped and DHT removed per orders. Pt tolerated well. Awaiting tray from kitchen.
--- NOTE | 2024-03-28 14:52 | W.PN.ID1 ---
Date of Service
Date of Service: March 28, 2024
Today's Communication
Continue abx.
Assessment / Plan
Fever
- ongoing, although temperature curve trending down.
- Of note, temperature readings are rectal, which are known to be higher.
Hypoxemia; improved
Suspected aspiration PNA
Normal white count with left shift
Elevated procalcitonin
Cerebral Palsy
Ovarian Cancer s/p Surgery and Hormone Treatment
Seizure Disorder with reported daily seizures
Recommendations:
Continue with Zosyn for the present.
Follow white count and temperature curve.
Follow CXR for stability/improvement.
Strict aspiration precautions
����������������������������������������������������������
Chief Complaint
-: Fever and Pneumonia
Subjective / Review of Systems
Patient seen and examined. No significant changes overnight.
Vital Signs / Physical Exam
Vital Signs
Vital Signs
Temp Pulse Resp BP Pulse Ox
99.2 F 68 24 145/88 92
03/28/24 11:29 03/28/24 14:24 03/28/24 14:24 03/28/24 14:24 03/28/24 14:24
Physical Exam
Physical Exam:
Constitutional: Comfortable, Chronically Ill and Non-toxic
Head: Other (Nasal Dobbhoff in place.)
Eyes: Sclera Anicteric
Cardiovascular: S1/S2; Negative S3/S4
Pulmonary: Rhonchi (Few; scattered) and Coarse; Non Labored
Gastrointestinal: Non Distended and Normal Bowel Sounds
Neurological: Awake, Alert and Other (Nonverbal)
Objective Data
Lab Data
Lab Results
03/28/24 05:27
03/27/24 04:26
Lactic Acid Cancelled 03/23/24 23:00
Total Bilirubin 0.4 mg/dl (0.2-1.3) 03/27/24 04:26
AST 61 U/L (14-36) H 03/27/24 04:26
ALT 41 U/L (0-35) H 03/27/24 04:26
Alkaline Phosphatase 123 U/L (38-126) 03/27/24 04:26
Most recent labs reviewed.
Micro Results:
03/27/24 13:11 Salmonella/Shigella Culture - Preliminary
Feces/Stool Culture in Progress
Campylobacter Culture - Preliminary
Culture in Progress
Shiga Toxin Test - Pending
Stool Leukocytes - Final
03/23/24 20:32 Blood Culture - Preliminary
Blood/Venous No Growth in 4 days- Final report to follow
03/23/24 20:36 Blood Culture - Preliminary
Blood/Venous No Growth in 4 days- Final report to follow
03/27/24 13:11 Cryptosporidium/Giardia - Final
Feces/Stool Negative for Cryptosporidium and/or Giardia Lamblia
antigens.
C. difficile GDH Antigen & Toxins - Final
Negative for toxigenic C.difficile
03/23/24 19:22 Influenza Types A & B ([facility]) - Final
Nasal Swab Negative for Influenza A & B, NAAT
Negative results must be combined with clinical observations
and patient history.
Nucleic Acid Amplification test (NAAT)performed on the
[employer] platform.
Imaging:
03/24/2024 CXR (portable): Dobbhoff tube has been placed, and tip projects over the midline to right paramedian upper abdomen, likely within the distal stomach or the proximal aspect of the duodenum. Patchy bilateral proximal airspace opacities,
fairly extensive, and these appear increased compared to most recent radiograph of March 23, 2024.
[2024-03-28] MEDS: LOVENOX 40 MG SC (17:37)
[2024-03-28] MEDS: ProAmatine PO (17:38)
[2024-03-28] MEDS: SINGULAIR 10 MG PO (20:34)
[2024-03-28] MEDS: NON-FORMULARY ITEM 4 MG PO (20:35)
[2024-03-29] VITALS (37 sets, daily range): BP systolic 63–165; BP diastolic 27–109
[2024-03-29] MEDS: ZOSYN 50 IV ×4 (02:38→21:47)
--- NOTE | 2024-03-29 03:07 | DOWNTIME ---
There was a [employer] Lead Downtime on 03/28/2024 from 0100 to 03/29/2024 at 0300. Downtime documentation of patient's care, including medication administrations, has been reconciled in the electronic record per guidelines. Refer to the
patient's paper chart under the miscellaneous tab to see printed paper medication records and downtime forms.
[2024-03-29 05:39] LABS: Hematocrit 31.7 % (37.0-47.0); Hemoglobin 10.8 g/dL (12.0-16.0); Mean Corp Hgb Conc. 34.1 g/dL (33.0-37.0); Mean Corpuscular Hgb 29.2 pg (27.0-31.0); Mean Corpuscular Volume 85.7 fL (81.0-99.0); Mean Platelet Volume 11.1 fL (7.4-10.4); Platelet Count 221 10^3/uL (130-400); Red Cell Dist. Width 13.6 % (11.5-14.5); White Blood Cell Count 4.6 10^3/uL (4.8-10.8)
--- NOTE | 2024-03-29 06:19 | PTCARENOTE ---
no acute events overnight- mother at bedside all night, pt with no fevers through the night. able to take medications crushed with applesauce without issues. frequent mouth care and suctioning. oxygen falling out of nose a times and oxygen dropping
to 88%. PW in use. rectal trumpet intact draining liquid stool. care ongoing.
[2024-03-29] MEDS: TRILEPTAL 600 MG PO ×2 (09:09→21:47)
[2024-03-29] MEDS: ONFI 10 MG PO ×2 (09:09→21:47)
[2024-03-29] MEDS: VITAMIN D3 (cholecalciferol) 25 MCG PO (09:09)
[2024-03-29] MEDS: ProAmatine 15 MG PO ×3 (09:09→18:02)
--- NOTE | 2024-03-29 11:47 | W.PN.ID1 ---
Date of Service
Date of Service: March 29, 2024
Today's Communication
Continue antibiotics. See below�
Assessment / Plan
Fever
- Improved.
Hypoxemia; improved
Suspected aspiration PNA
Normal white count with left shift
Elevated procalcitonin
Cerebral Palsy
Hx Ovarian Cancer; s/p Surgery and Hormone Treatment
Seizure Disorder with reported daily seizures
Recommendations:
Continue with Zosyn for the present.
Patient currently receiving a trial of food.
--> If tolerates oral feeds, can transition Zosyn to Augmentin suspension 500 mg p.o. twice daily for an additional 7 days of therapy.
Follow white count and temperature curve.
Follow CXR for stability/improvement.
Strict aspiration precautions
����������������������������������������������������������
Chief Complaint
-: Fever and Pneumonia
Subjective / Review of Systems
Review of Systems: No Fever and No Chills
Vital Signs / Physical Exam
Vital Signs
Vital Signs
Temp Pulse Resp BP Pulse Ox
98.8 F 69 19 112/65 99
03/29/24 11:22 03/29/24 06:04 03/29/24 06:04 03/29/24 06:04 03/29/24 09:42
Physical Exam
Constitutional: No Acute Distress, Comfortable, Chronically Ill and Non-toxic
Eyes: Sclera Anicteric
Cardiovascular: Regular Rate and S1/S2; Negative S3/S4
Pulmonary: Coarse and Non Labored
Gastrointestinal: Non Distended
Extremities: Other (contracted)
Neurological: Awake
Psychological: Calm
Objective Data
Lab Data
Lab Results
03/29/24 05:26
03/27/24 04:26
Lactic Acid Cancelled 03/23/24 23:00
Total Bilirubin 0.4 mg/dl (0.2-1.3) 03/27/24 04:26
AST 61 U/L (14-36) H 03/27/24 04:26
ALT 41 U/L (0-35) H 03/27/24 04:26
Alkaline Phosphatase 123 U/L (38-126) 03/27/24 04:26
Most recent labs reviewed.
Micro Results:
03/23/24 20:32 Blood Culture - Final
Blood/Venous No Growth - Final Report
03/23/24 20:36 Blood Culture - Final
Blood/Venous No Growth - Final Report
03/27/24 13:11 Salmonella/Shigella Culture - Preliminary
Feces/Stool Culture in Progress
Campylobacter Culture - Preliminary
Culture in Progress
Shiga Toxin Test - Pending
Stool Leukocytes - Final
03/27/24 13:11 Cryptosporidium/Giardia - Final
Feces/Stool Negative for Cryptosporidium and/or Giardia Lamblia
antigens.
C. difficile GDH Antigen & Toxins - Final
Negative for toxigenic C.difficile
03/23/24 19:22 Influenza Types A & B ([facility]) - Final
Nasal Swab Negative for Influenza A & B, NAAT
Negative results must be combined with clinical observations
and patient history.
Nucleic Acid Amplification test (NAAT)performed on the
[employer] platform.
Imaging:
03/24/2024 CXR (portable): Dobbhoff tube has been placed, and tip projects over the midline to right paramedian upper abdomen, likely within the distal stomach or the proximal aspect of the duodenum. Patchy bilateral proximal airspace opacities,
fairly extensive, and these appear increased compared to most recent radiograph of March 23, 2024.
--- NOTE | 2024-03-29 11:51 | W.PN.HOSP.TC ---
Today's Communication/Plan
-
CW ABX
Start on IV fluids
Wean O2
Assessment / Plan
Assessment / Plan
HPI: 48-year-old with past medical history for seizure, cerebral palsy presented to us with fever of 102 at home. She was noted to be lethargic. Family attempted to give Tylenol crushed in applesauce. She started coughing. Review of system is
limited as patient is nonverbal. History obtained primarily from family. Patient lives with her parents. She was noted to have seizure activity with fever at home.
On arrival patient was hypoxic. 74 percentage on room air. Patient requiring min better mask. Patient received fluids and Zosyn in ER. Admitting for further management
#Sepsis
#Fever
#Probable aspiration with seems to be recurrent.
Improved fevers ;repeat a chest x-ray Bilateral reticulonodular and patchy airspace opacities within the lungs, likely pneumonia. Improvement in lung parenchymal opacities compared to most recent radiograph of March 24, 2024.
Continue Zosyn as per ID
#Chronic dysphagia
#Probable aspiration
# History for esophageal web
She is usually on a pur�ed diet with nectar thickened liquids
Recurrent admission within couple of days of discharge requiring high oxygen and bilateral pneumonia with sepsis picture all concerning for recurrent aspiration issue. Question comes as this is pharyngeal or esophageal. She is maintained on pur�ed
diet for many years now. Her VSE last week did not show any laryngeal penetration and was cleared for pureed and thick liquids but there was a esophageal web which at this time probably should be investigated.
GI input noted-they had a discussions with the family regarding esophageal web evaluation with endoscopy. With the risk of anesthesia and no wishes of PEG tube esophageal evaluation is on hold. GI signed off.
With dysphagia being now primary issue and a change from her baseline before attributing it to progression of CP asked Neuro eval -appt recs. Follow on current AED;follow levels of Trileptal.
#Mild transaminitis from infection
Trend LFTs-improving
#Acute on chronic hypotension
Continue midodrine 15 mg 3 times daily
Has not required any Levophed
#Cerebral Palsy
#Seizure Disorder
- Stable. Family notes that patient has frequent - though mild - breakthrough seizures.
- Continue onfi, Trileptal, tiagabin
- Seizure precaution continued
#History of Ovarian Cancer
- S/p surgery and then hormonal therapy.
- Has completed treatment x 5 years.
- Remains on letrozole at family preference.
#Functional quadriplegia due to cerebral palsy
- Dependent on family for all care
#DVT Prophylaxis: Lovenox
#Code Status: Full
Start on IV fluids as oral intake is still not adequate
Updated mother at bedside
DW RN
Anticipated Discharge: > 48 hours
Subjective/Interval History
-
Date of Service: March 29, 2024
Pt this in rounds was sleeping.
Per mom at bedside ,she was up late and slept in early hours of morning.
Not taking much orally yet.
Objective Data
-
Labs:
Laboratory Results
03/29/24
05:26
WBC 4.6 L
Hgb 10.8 L
Hct 31.7 L
Plt Count 221
Vital Signs:
Vital Signs
Temp Pulse Resp BP Pulse Ox
98.8 F 69 19 112/65 99
03/29/24 11:22 03/29/24 06:04 03/29/24 06:04 03/29/24 06:04 03/29/24 09:42
I&O
03/28/24 03/29/24 03/30/24
06:59 06:59 06:59
Intake Total 550 / 550 120 / 120
Output Total 3725 / 3725 1550 / 1550
Balance -3175 / -3175 -1550 / -1550 120 / 120
Review of Systems
-
Unable to obtain full review of systems at this time due to: Patient Non-verbal
Physical Exam
-
General: No Apparent Distress
HEENT: Moist Mucous Membranes
Respiratory: Rhonchi (on anterior ausculatation)
Cardiac: Regular Rhythm and S1/S2
GI: Soft
Neuro: Other (sleepy)
Psych: Calm
Data Reviewed
-
Labs: Labs Reviewed by me
[2024-03-29] MEDS: NSS 1000 IV (14:22)
--- NOTE | 2024-03-29 14:58 | PTCARENOTE ---
Pt presents as assessed. NSR on tele monitor. Sating mid to high 90's on 6L MFNC. Rectal trumpet draining liquid stool. Purewick in place. IVF infusing as ordered. Q2T maintained. Family at bedside; updated on plan of care.
[2024-03-29] MEDS: LOVENOX 40 MG SC (18:02)
--- NOTE | 2024-03-29 18:11 | PTCARENOTE ---
Addendum entered by Shalonda Flynn 03/29/24 19:06:
BP improving with SBP in the low 90's. Report to housekeeper supervisor RN.
Addendum entered by Shalonda Flynn 03/29/24 18:30:
IVF Bolus hung per orders.
Original Note:
Pt hypotensive with SBP in the 60's. Dr. Stanley notified via TT. Midodrine administered as ordered Order received for IVF bolus, awaiting verification by pharmacy.
[2024-03-29] MEDS: NSS 500 IV (18:29)
[2024-03-29] MEDS: SINGULAIR 10 MG PO (21:47)
[2024-03-29] MEDS: NON-FORMULARY ITEM 4 MG PO (21:47)
[2024-03-30] VITALS (8 sets, daily range): BP systolic 90–134; BP diastolic 51–91
--- NOTE | 2024-03-30 01:32 | PTCARENOTE ---
Assumed care of patient at 1900, nursing assessment as documented. Patient nonverbal but with verbal outbursts at times, remains on 6L NC. B/L soft wrist restrained 2/2 taking off O2, father at bedside and to stay the night. Purewick changed and
hygiene care provided, rectal trumpet in place and flushed. Repositioned for comfort, meds given crushed in applesauce with help from father. R M/L patent with sluggish blood return. NSS infusing at 80ml/hr via R M/L. Call velazquez within reach, family
updated at bedside, care ongoing.
[2024-03-30] MEDS: ZOSYN 50 IV ×2 (02:15→09:01)
[2024-03-30 05:25] LABS: Blood Urea Nitrogen 11 mg/dl (7-17); Calcium 9.4 mg/dl (8.4-10.2); Carbon Dioxide 28 mmol/L (22-30); Chloride 100 mmol/L (98-107); Glucose 86 mg/dl (70-99); Potassium 4.1 mmol/L (3.5-5.1); Sodium 137 mmol/L (135-145); eGFR > 60.00
[2024-03-30] MEDS: NSS 1000 IV (08:59)
[2024-03-30] MEDS: ONFI 10 MG PO ×2 (09:00→20:07)
[2024-03-30] MEDS: ProAmatine 15 MG PO ×3 (09:00→17:17)
[2024-03-30] MEDS: VITAMIN D3 (cholecalciferol) 25 MCG PO (09:00)
[2024-03-30] MEDS: TRILEPTAL 600 MG PO ×2 (09:00→20:07)
--- NOTE | 2024-03-30 10:38 | W.PN.ID1 ---
Date of Service
Date of Service: March 30, 2024
Today's Communication
Transition to oral Augmentin suspension.
Assessment / Plan
Fever
- Improved.
Hypoxemia; improved
Suspected aspiration PNA
Normal white count with left shift
Elevated procalcitonin
Cerebral Palsy
Hx Ovarian Cancer; s/p Surgery and Hormone Treatment
Seizure Disorder with reported daily seizures
Recommendations:
Transition Zosyn to Augmentin suspension 500 mg p.o. twice daily for an additional 7 days of therapy.
Follow white count and temperature curve.
Follow CXR for stability/improvement.
Strict aspiration precautions
Little more to offer for management infectious Diseases standpoint.
Will see again at your request.
����������������������������������������������������������
Chief Complaint
-: Fever and Pneumonia
Subjective / Review of Systems
Patient seen and examined. Now taking oral food and medications
Review of Systems: No Fever and No Chills
Vital Signs / Physical Exam
Vital Signs
Vital Signs
Temp Pulse Resp BP Pulse Ox
97.7 F 65 19 108/57 97
03/30/24 07:15 03/30/24 04:00 03/30/24 04:00 03/30/24 04:00 03/30/24 04:00
Physical Exam
Constitutional: No Acute Distress, Comfortable, Chronically Ill and Non-toxic
Cardiovascular: S1/S2; Negative S3/S4
Pulmonary: Non Labored
Gastrointestinal: Soft and Non Distended
Extremities: Other (contracted)
Neurological: Awake and Alert
Psychological: Calm
Objective Data
Lab Data
Lab Results
03/29/24 05:26
03/30/24 04:39
Lactic Acid Cancelled 03/23/24 23:00
Total Bilirubin 0.4 mg/dl (0.2-1.3) 03/27/24 04:26
AST 61 U/L (14-36) H 03/27/24 04:26
ALT 41 U/L (0-35) H 03/27/24 04:26
Alkaline Phosphatase 123 U/L (38-126) 03/27/24 04:26
Most recent labs reviewed.
Micro Results:
03/27/24 13:11 Salmonella/Shigella Culture - Final
Feces/Stool No Salmonella, Shigella, Aeromonas or Plesiomonas species
isolated.
Campylobacter Culture - Final
No Campylobacter species isolated.
Shiga Toxin Test - Final
No E. coli Shiga Toxin 1 or 2 detected.
Stool Leukocytes - Final
03/23/24 20:32 Blood Culture - Final
Blood/Venous No Growth - Final Report
03/23/24 20:36 Blood Culture - Final
Blood/Venous No Growth - Final Report
03/27/24 13:11 Cryptosporidium/Giardia - Final
Feces/Stool Negative for Cryptosporidium and/or Giardia Lamblia
antigens.
C. difficile GDH Antigen & Toxins - Final
Negative for toxigenic C.difficile
03/23/24 19:22 Influenza Types A & B ([facility]) - Final
Nasal Swab Negative for Influenza A & B, NAAT
Negative results must be combined with clinical observations
and patient history.
Nucleic Acid Amplification test (NAAT)performed on the
[employer] platform.
Imaging:
03/24/2024 CXR (portable): Dobbhoff tube has been placed, and tip projects over the midline to right paramedian upper abdomen, likely within the distal stomach or the proximal aspect of the duodenum. Patchy bilateral proximal airspace opacities,
fairly extensive, and these appear increased compared to most recent radiograph of March 23, 2024.
Care Review
Plan reviewed with: Physician (Hospitalist)
--- NOTE | 2024-03-30 10:51 | W.PN.HOSP.TC ---
Today's Communication/Plan
-
Tx to med surg
Assessment / Plan
Assessment / Plan
HPI: 48-year-old with past medical history for seizure, cerebral palsy presented to us with fever of 102 at home. She was noted to be lethargic. Family attempted to give Tylenol crushed in applesauce. She started coughing. Review of system is
limited as patient is nonverbal. History obtained primarily from family. Patient lives with her parents. She was noted to have seizure activity with fever at home.
On arrival patient was hypoxic. 74 percentage on room air. Patient requiring min better mask. Patient received fluids and Zosyn in ER. Admitting for further management
#Sepsis
#Fever
#Probable aspiration with seems to be recurrent.
Improved fevers ;repeat a chest x-ray Bilateral reticulonodular and patchy airspace opacities within the lungs, likely pneumonia. Improvement in lung parenchymal opacities compared to most recent radiograph of March 24, 2024.
Continue abx per ID
#Chronic dysphagia
#Probable aspiration
# History for esophageal web
She is usually on a pur�ed diet with nectar thickened liquids
Recurrent admission within couple of days of discharge requiring high oxygen and bilateral pneumonia with sepsis picture all concerning for recurrent aspiration issue. Question comes as this is pharyngeal or esophageal. She is maintained on pur�ed
diet for many years now. Her VSE last week did not show any laryngeal penetration and was cleared for pureed and thick liquids but there was a esophageal web which at this time probably should be investigated.
GI input noted-they had a discussions with the family regarding esophageal web evaluation with endoscopy. With the risk of anesthesia and no wishes of PEG tube esophageal evaluation is on hold. GI signed off.
With dysphagia being now primary issue and a change from her baseline before attributing it to progression of CP asked Neuro eval -appt recs. Follow on current AED;follow levels of Trileptal.
#Mild transaminitis from infection
LFTs improving
#Acute on chronic hypotension
Continue midodrine 15 mg 3 times daily
Has not required any Levophed
#Cerebral Palsy
#Seizure Disorder
- Stable. Family notes that patient has frequent - though mild - breakthrough seizures.
- Continue onfi, Trileptal, tiagabin
- Seizure precaution continued
#History of Ovarian Cancer
- S/p surgery and then hormonal therapy.
- Has completed treatment x 5 years.
- Remains on letrozole at family preference.
#Functional quadriplegia due to cerebral palsy
- Dependent on family for all care
#DVT Prophylaxis: Lovenox
#Code Status: Full
DC IV fluids as oral intake is adequate
Updated father at bedside
DW RN
Tx to Medsurg today
OOB to chair
PT eval
Anticipated Discharge: 24 - 48 hours
Subjective/Interval History
-
Date of Service: March 30, 2024
patient is more awake and dad at bedside feeding her and as well as giving her meds in applesauce.
Objective Data
-
Labs:
Laboratory Results
03/30/24
04:39
Sodium 137
Potassium 4.1
Chloride 100
Carbon Dioxide 28
BUN 11
Creatinine 0.6
Glucose 86
Calcium 9.4
Vital Signs:
Vital Signs
Temp Pulse Resp BP Pulse Ox
97.7 F 65 19 108/57 97
03/30/24 07:15 03/30/24 04:00 03/30/24 04:00 03/30/24 04:00 03/30/24 04:00
I&O
03/29/24 03/30/24 03/31/24
06:59 06:59 06:59
Intake Total 1240 / 1240
Output Total 1550 / 1550 2100 / 2100
Balance -1550 / -1550 -860 / -860
Review of Systems
-
Unable to obtain full review of systems at this time due to: Patient Non-verbal
Physical Exam
-
General: No Apparent Distress and Comfortable
HEENT: Moist Mucous Membranes
Respiratory: Clear to Auscultation (anteriorly); Negative Wheezes
Cardiac: Regular Rhythm and S1/S2; Negative Tachycardic
GI: Soft
Neuro: Awake and Alert
Psych: Calm
Data Reviewed
-
Labs: Labs Reviewed by me
--- NOTE | 2024-03-30 12:38 | PTCARENOTE ---
pt transferred to med surg room 325. report given to Nilsa on .assessment as charted.
[2024-03-30] MEDS: LOVENOX 40 MG SC (17:17)
[2024-03-30 18:15] LABS: Vitamin D 1,25 Dihydroxy 67.8 pg/mL (19.9-79.3)
[2024-03-30] MEDS: AUGMENTIN 250 MG/5 ML 500 MG PO (20:07)
[2024-03-30] MEDS: NON-FORMULARY ITEM 4 MG PO (22:55)
[2024-03-30] MEDS: SINGULAIR 10 MG PO (22:57)
--- NOTE | 2024-03-31 06:47 | W.PN.UPDATE ---
Update Note
Progress Note Update
RN notified patient retaining urine 407 cc Bladder scanned, will order straight cath and UA to reflex culture, no new complaints.
[2024-03-31 07:00] VITALS: BP 101/43
[2024-03-31] MEDS: ProAmatine 15 MG PO ×3 (08:24→17:18)
[2024-03-31] MEDS: VITAMIN D3 (cholecalciferol) 25 MCG PO (08:24)
[2024-03-31] MEDS: AUGMENTIN 250 MG/5 ML 500 MG PO ×2 (08:25→21:13)
[2024-03-31] MEDS: ONFI 10 MG PO ×2 (08:25→21:13)
[2024-03-31] MEDS: TRILEPTAL 600 MG PO ×2 (08:25→21:13)
--- NOTE | 2024-03-31 10:01 | W.PN.HOSP.TC ---
Today's Communication/Plan
-
Wean O2
DC planning
Assessment / Plan
Assessment / Plan
HPI: 48-year-old with past medical history for seizure, cerebral palsy presented to us with fever of 102 at home. She was noted to be lethargic. Family attempted to give Tylenol crushed in applesauce. She started coughing. Review of system is
limited as patient is nonverbal. History obtained primarily from family. Patient lives with her parents. She was noted to have seizure activity with fever at home.
On arrival patient was hypoxic. 74 percentage on room air. Patient requiring min better mask. Patient received fluids and Zosyn in ER. Admitting for further management
#Sepsis
#Fever
#Probable aspiration with seems to be recurrent.
Resolved fevers ;repeat a chest x-ray Bilateral reticulonodular and patchy airspace opacities within the lungs, likely pneumonia. Improvement in lung parenchymal opacities compared to most recent radiograph of March 24, 2024.
Continue abx per ID -now on oral.
#Chronic dysphagia
#Probable aspiration
# History for esophageal web
She is usually on a pur�ed diet with nectar thickened liquids
Recurrent admission within couple of days of discharge requiring high oxygen and bilateral pneumonia with sepsis picture all concerning for recurrent aspiration issue. Question comes as this is pharyngeal or esophageal. She is maintained on pur�ed
diet for many years now. Her VSE last week did not show any laryngeal penetration and was cleared for pureed and thick liquids but there was a esophageal web which at this time probably should be investigated.
GI input noted-they had a discussions with the family regarding esophageal web evaluation with endoscopy. With the risk of anesthesia and no wishes of PEG tube esophageal evaluation is on hold. GI signed off.
With dysphagia being now primary issue and a change from her baseline before attributing it to progression of CP asked Neuro eval -appt recs. Follow on current AED;follow levels of Trileptal.
#Mild transaminitis from infection
LFTs improving
#Acute on chronic hypotension
Continue midodrine 15 mg 3 times daily
Has not required any Levophed
#Cerebral Palsy
#Seizure Disorder
- Stable. Family notes that patient has frequent - though mild - breakthrough seizures.
- Continue onfi, Trileptal, tiagabin
- Seizure precaution continued
#History of Ovarian Cancer
- S/p surgery and then hormonal therapy.
- Has completed treatment x 5 years.
- Remains on letrozole at family preference.
#Functional quadriplegia due to cerebral palsy
- Dependent on family for all care
#DVT Prophylaxis: Lovenox
#Code Status: Full
OOB to chair
PT eval
Wean Oxygen
DC planning
Anticipated Discharge: Within 24 hours
Subjective/Interval History
-
Date of Service: March 31, 2024
Mom at bedside feeding Ciera.
Improving oral intake.
Objective Data
-
Vital Signs:
Vital Signs
Temp Pulse Resp BP Pulse Ox
98.8 F 76 19 101/43 94
03/31/24 07:00 03/31/24 08:24 03/31/24 07:00 03/31/24 08:24 03/31/24 07:00
I&O
03/30/24 03/31/24 04/01/24
06:59 06:59 06:59
Intake Total 1240 / 1240 200 / 200
Output Total 2099 / 2099 1050 / 1050
Balance -860 / -860 -850 / -850
Review of Systems
-
Unable to obtain full review of systems at this time due to: Patient Non-verbal
Physical Exam
-
General: Comfortable
HEENT: Moist Mucous Membranes
Respiratory: Clear to Auscultation (anteriorly) and Non Labored Respirations; Negative Accessory Resp Muscle Use
Cardiac: Regular Rhythm and S1/S2
Neuro: Awake and Alert
Psych: Calm
--- NOTE | 2024-03-31 14:10 | PN.CDI ---
CDI
- -
CDI:
Physician Documentation Request
Admit Date: 03/23/24 22:37
Dear Doctor Elliott,
Please review the following and provide your response in the progress notes.
Clinical Indicators:
Documentation in the record on 03/23 (H+P) includes the diagnosis of respiratory failure.
ED, 03/23
#...recently admitted with aspiration and UTI
#...discharged 2 days ago
#...presents with fever lethargy low blood pressure pulse ox 74% on room air history....
#Respiratory: Reports trouble breathing
#Fever confusion hypoxia
H+P, 03/23
#On arrival patient was hypoxic.
#...74 percentage on room air.
#...Patient requiring min better mask.
#sepsis/acute hypoxic respiratory failure likely aspiration pneumonia
#-Continue supplemental oxygen to keep sat greater than 92
PN, 03/31
#On arrival patient was hypoxic.
#...74 percentage on room air.
#...Patient requiring min better mask.
Intermittent mid/high flow required during this admission:
03/24, 03/25, 03/26, 03/27, 03/28, 03/29, 03/30, 03/31
Laboratory Tests
03/23/24
19:55
pH 7.52 H
pCO2 30 L
pO2 178 H
HCO3 24.5
Base Excess 2.4
ABG O2 Sat (Measured) 99.8 H
Recognized standard criteria for respiratory failure includes:
(Source: [facility] Sep 2013)
ABGs (1 or more)
�PO2 <60 or RA SpO2 <91%
�PcO2 >50 and pH <7.35
�pO2 decrease or pcO2 increase by 10 mmHg from baseline if known Symptoms:
�Tachypnea, SOB, dyspnea
�Pallor or cyanosis
�Anxiety or restlessness
�Use of accessory muscles
�Retractions (grunting in newborns)
�Unable to speak in complete sentences
Supplemental O2 requirement of 40% (5LPM) or more Intubation is not required
Based on the above information and the recognized standard for respiratory failure, please verify this diagnoses is still accurate and reflective of the patient�s condition to ensure quality of the medical record.
Please clarify in the Progress Notes:
Respiratory failure is/was present and is a clinical diagnosis based on (please include this additional support in the medical record)
After study respiratory failure has been ruled out
Hypoxia
Other(please specify)
Use of terms such as suspected, likely, concern for, or probable (associated with a specific diagnosis that is being evaluated, monitored, or treated as if it exists) are acceptable and can be coded in the inpatient setting, when documented at the
time of discharge.
Thank you,
Shereen Claire RN BSN CCDS
CDI Specialist
please contact via tiger text
Please use your independent medical judgment in providing your response.
[2024-03-31 15:00] VITALS: BP 109/47
--- NOTE | 2024-03-31 15:43 | CM ---
Patient attempting to wean from o2, otherwise is at her baseline. Will return home with mother and father when stable as well as waiver program for assistance.
Plan: Case management will continue to follow and assist with discharge planning. Home when cleared for discharge.
[2024-03-31] MEDS: LOVENOX 40 MG SC (17:18)
[2024-03-31] MEDS: SINGULAIR 10 MG PO (21:13)
[2024-03-31] MEDS: NON-FORMULARY ITEM 4 MG PO (21:13)
[2024-03-31 23:00] VITALS: BP 104/53
[2024-03-31 23:30] LABS: Oxcarbazepine Metabolite 27 ug/mL (3-35)
[2024-04-01 06:00] VITALS: BMI 25.3
[2024-04-01 07:45] VITALS: BP 107/61
[2024-04-01] MEDS: AUGMENTIN 250 MG/5 ML 500 MG PO ×2 (08:40→21:03)
[2024-04-01] MEDS: ProAmatine 15 MG PO ×3 (08:41→17:47)
[2024-04-01] MEDS: TRILEPTAL 600 MG PO ×2 (08:41→21:03)
[2024-04-01] MEDS: VITAMIN D3 (cholecalciferol) 25 MCG PO (08:41)
[2024-04-01] MEDS: ONFI 10 MG PO ×2 (08:41→21:03)
--- NOTE | 2024-04-01 11:07 | W.PN.HOSP.TC ---
Addendum entered and electronically signed by Horacio Gallagher MD 04/01/24 15:18:
patient had acute hypoxic respiratory failure on admission. Now much improved. Currently at 2 L of nasal cannula.
Original Note:
Today's Communication/Plan
-
Continue wean oxygen
DC planning
Assessment / Plan
Assessment / Plan
HPI: 48-year-old with past medical history for seizure, cerebral palsy presented to us with fever of 102 at home. She was noted to be lethargic. Family attempted to give Tylenol crushed in applesauce. She started coughing. Review of system is
limited as patient is nonverbal. History obtained primarily from family. Patient lives with her parents. She was noted to have seizure activity with fever at home.
On arrival patient was hypoxic. 74 percentage on room air. Patient requiring min better mask. Patient received fluids and Zosyn in ER. Admitting for further management
#Sepsis
#Fever
#Probable aspiration with seems to be recurrent.
Resolved fevers ;repeat a chest x-ray Bilateral reticulonodular and patchy airspace opacities within the lungs, likely pneumonia. Improvement in lung parenchymal opacities compared to most recent radiograph of March 24, 2024.
Continue abx per ID -now on oral.
#Chronic dysphagia
#Probable aspiration
# History for esophageal web
She is usually on a pur�ed diet with nectar thickened liquids
Recurrent admission within couple of days of discharge requiring high oxygen and bilateral pneumonia with sepsis picture all concerning for recurrent aspiration issue. Question comes as this is pharyngeal or esophageal. She is maintained on pur�ed
diet for many years now. Her VSE last week did not show any laryngeal penetration and was cleared for pureed and thick liquids but there was a esophageal web which at this time probably should be investigated.
GI input noted-they had a discussions with the family regarding esophageal web evaluation with endoscopy. With the risk of anesthesia and no wishes of PEG tube esophageal evaluation is on hold. GI signed off.
With dysphagia being now primary issue and a change from her baseline before attributing it to progression of CP asked Neuro eval -appt recs. Follow on current AED; Trileptal levels therapeutic..
#Mild transaminitis from infection
LFTs improving
#Acute on chronic hypotension
Continue midodrine 15 mg 3 times daily
Has not required any Levophed
#Cerebral Palsy
#Seizure Disorder
- Stable. Family notes that patient has frequent - though mild - breakthrough seizures.
- Continue onfi, Trileptal, tiagabin
- Seizure precaution continued
#History of Ovarian Cancer
- S/p surgery and then hormonal therapy.
- Has completed treatment x 5 years.
- Remains on letrozole at family preference.
#Functional quadriplegia due to cerebral palsy
- Dependent on family for all care
#DVT Prophylaxis: Lovenox
#Code Status: Full
OOB to chair
PT eval
Wean Oxygen
DC planning
Anticipated Discharge: 24 - 48 hours
Subjective/Interval History
-
Date of Service: April 01, 2024
No events overnight.
On decreased FiO2 -currently on 2 L
Objective Data
-
Vital Signs:
Vital Signs
Temp Pulse Resp BP Pulse Ox
99.9 F 81 20 107/61 96
04/01/24 07:45 04/01/24 07:45 04/01/24 07:45 04/01/24 07:45 04/01/24 07:45
I&O
03/31/24 04/01/24 04/02/24
06:59 06:59 06:59
Intake Total 200 / 200 540 / 540 420 / 420
Output Total 1050 / 1050 325 / 325 700 / 700
Balance -850 / -850 215 / 215 -280 / -280
Review of Systems
-
Unable to obtain full review of systems at this time due to: Patient Non-verbal
Physical Exam
-
Respiratory: Clear to Auscultation and Non Labored Respirations; Negative Rhonchi (now) or Accessory Resp Muscle Use
Cardiac: Regular Rhythm and S1/S2
GI: Soft
Neuro: Awake and Alert
[2024-04-01 15:46] VITALS: BP 163/106
[2024-04-01 16:29] VITALS: BP 139/83
--- NOTE | 2024-04-01 16:55 | PTCARENOTE ---
bladder scan for 444ml. stright cath successful. pt began urinating a large amount saturating the bed during straight cath insertion. UA sent
[2024-04-01 17:09] LABS: Urine Albumin Negative (Neg - Trace); Urine Bilirubin Negative (Negative); Urine Character Clear (Clear); Urine Color Yellow; Urine Glucose Negative (Negative); Urine Ketone Negative (Negative); Urine Leukocyte Trace (Negative); Urine Nitrite Negative (Negative); Urine Occult Blood Negative (Negative); Urine Urobilinogen Negative (Neg - 1+)
[2024-04-01 17:28] LABS: Urine Bacteria Few (Negative)
[2024-04-01 17:29] LABS: Urine Red Blood Cell 0-2 /HPF (0-2); Urine White Cell 0-2 /HPF (0-5)
[2024-04-01 17:47] VITALS: BP 100/72
[2024-04-01] MEDS: LOVENOX 40 MG SC (17:47)
[2024-04-01] MEDS: NON-FORMULARY ITEM 4 MG PO (21:00)
[2024-04-01] MEDS: SINGULAIR 10 MG PO (21:03)
[2024-04-01 23:00] VITALS: BP 103/59
[2024-04-02 07:00] VITALS: BP 90/47
[2024-04-02 08:00] VITALS: BP 90/47
[2024-04-02] MEDS: ProAmatine 15 MG PO ×3 (08:53→17:11)
[2024-04-02] MEDS: TRILEPTAL 600 MG PO ×2 (08:53→21:06)
[2024-04-02] MEDS: VITAMIN D3 (cholecalciferol) 25 MCG PO (08:53)
[2024-04-02] MEDS: ONFI 10 MG PO ×2 (08:53→21:06)
[2024-04-02] MEDS: AUGMENTIN 250 MG/5 ML 500 MG PO ×2 (09:04→21:06)
--- NOTE | 2024-04-02 10:50 | W.PN.HOSP.TC ---
Today's Communication/Plan
-
Wean O2
Follow bladder scan
DC planning
Assessment / Plan
Assessment / Plan
HPI: 48-year-old with past medical history for seizure, cerebral palsy presented to us with fever of 102 at home. She was noted to be lethargic. Family attempted to give Tylenol crushed in applesauce. She started coughing. Review of system is
limited as patient is nonverbal. History obtained primarily from family. Patient lives with her parents. She was noted to have seizure activity with fever at home.
On arrival patient was hypoxic. 74 percentage on room air. Patient requiring min better mask. Patient received fluids and Zosyn in ER. Admitting for further management
#Sepsis
#Fever
#Probable aspiration with seems to be recurrent.
Resolved fevers ;repeat a chest x-ray Bilateral reticulonodular and patchy airspace opacities within the lungs, likely pneumonia. Improvement in lung parenchymal opacities compared to most recent radiograph of March 24, 2024.
Continue abx per ID -now on oral.
#Chronic dysphagia
#Probable aspiration
# History for esophageal web
She is usually on a pur�ed diet with nectar thickened liquids
Recurrent admission within couple of days of discharge requiring high oxygen and bilateral pneumonia with sepsis picture all concerning for recurrent aspiration issue. Question comes as this is pharyngeal or esophageal. She is maintained on pur�ed
diet for many years now. Her VSE last week did not show any laryngeal penetration and was cleared for pureed and thick liquids but there was a esophageal web which at this time probably should be investigated.
GI input noted-they had a discussions with the family regarding esophageal web evaluation with endoscopy. With the risk of anesthesia and no wishes of PEG tube esophageal evaluation is on hold. GI signed off.
With dysphagia being now primary issue and a change from her baseline before attributing it to progression of CP asked Neuro eval -appt recs. Follow on current AED; Trileptal levels therapeutic..
#Mild transaminitis from infection
LFTs improving
#Acute on chronic hypotension
Continue midodrine 15 mg 3 times daily
Has not required any Levophed
#Cerebral Palsy
#Seizure Disorder
- Stable. Family notes that patient has frequent - though mild - breakthrough seizures.
- Continue onfi, Trileptal, tiagabin
- Seizure precaution continued
#History of Ovarian Cancer
- S/p surgery and then hormonal therapy.
- Has completed treatment x 5 years.
- Remains on letrozole at family preference.
#Functional quadriplegia due to cerebral palsy
- Dependent on family for all care
#DVT Prophylaxis: Lovenox
#Code Status: Full
OOB to chair
PT eval
continue to Wean Oxygen
DC planning
Anticipated Discharge: Within 24 hours
Subjective/Interval History
-
Date of Service: April 02, 2024
No overnight events other than the need of straight cath once yesterday apparently.
Objective Data
-
Vital Signs:
Vital Signs
Temp Pulse Resp BP Pulse Ox
98.4 F 72 20 90/47 95
04/02/24 07:00 04/02/24 07:00 04/02/24 07:00 04/02/24 07:00 04/02/24 10:14
I&O
04/01/24 04/02/24 04/03/24
06:59 06:59 06:59
Intake Total 540 / 540 420 / 420 0 / 0
Output Total 325 / 325 770 / 770
Balance 215 / 215 -350 / -350 0 / 0
Review of Systems
-
Unable to obtain full review of systems at this time due to: Patient Non-verbal
Physical Exam
-
General: No Apparent Distress
HEENT: Moist Mucous Membranes
Respiratory: Clear to Auscultation
Cardiac: Regular Rhythm and S1/S2
GI: Soft
Neuro: Awake and Alert
[2024-04-02] MEDS: MIRALAX 17 GRAMS PO (11:39)
[2024-04-02 15:00] VITALS: BP 124/61
--- NOTE | 2024-04-02 15:37 | CM ---
Case management following for d/c planning
Chart reviewed
Weaning o2
Father of pt requested to see CM - concerned about services for his daughter
Requesting VN - has used [facility] in past
Will send referral in [facility]
Watch for home O2 needs
PLan - home with [facility]
[2024-04-02] MEDS: LOVENOX 40 MG SC (17:11)
[2024-04-02] MEDS: NON-FORMULARY ITEM 4 MG PO (21:07)
[2024-04-02] MEDS: SINGULAIR 10 MG PO (21:08)
[2024-04-02 23:00] VITALS: BP 99/64
[2024-04-03 07:00] VITALS: BP 89/52
[2024-04-03] MEDS: VITAMIN D3 (cholecalciferol) 25 MCG PO (07:57)
[2024-04-03] MEDS: ProAmatine 15 MG PO ×2 (07:57→12:15)
[2024-04-03] MEDS: TRILEPTAL 600 MG PO (07:57)
[2024-04-03] MEDS: MIRALAX 17 GRAMS PO (07:57)
[2024-04-03] MEDS: ONFI 10 MG PO (07:57)
[2024-04-03] MEDS: AUGMENTIN 250 MG/5 ML 500 MG PO (07:57)
--- NOTE | 2024-04-03 10:44 | W.PN.HOSP.TC ---
Addendum entered and electronically signed by Horacio Gallagher MD 04/03/24 15:53:
Patient is in need of oxygen at 2 liters/minute via nasal cannula continuously due to pulse oximetry of 84% on room air at rest. Oxygen will help to improve hypoxemia. DuoNeb therapy has been tried and is ineffective in treating hypoxemia related
symptoms. Oxygen is needed to improve symptoms.
Original Note:
Today's Communication/Plan
-
DC
Assessment / Plan
Assessment / Plan
HPI: 48-year-old with past medical history for seizure, cerebral palsy presented to us with fever of 102 at home. She was noted to be lethargic. Family attempted to give Tylenol crushed in applesauce. She started coughing. Review of system is
limited as patient is nonverbal. History obtained primarily from family. Patient lives with her parents. She was noted to have seizure activity with fever at home.
On arrival patient was hypoxic. 74 percentage on room air. Patient requiring min better mask. Patient received fluids and Zosyn in ER. Admitting for further management
#Sepsis
#Fever
#Probable aspiration with seems to be recurrent.
Resolved fevers ;repeat a chest x-ray Bilateral reticulonodular and patchy airspace opacities within the lungs, likely pneumonia. Improvement in lung parenchymal opacities compared to most recent radiograph of March 24, 2024.
Continue abx per ID -now on oral.
Much improved oxygenation. Currently on 0.5 L. Check for home O2 eval.
#Chronic dysphagia
# History for esophageal web
She is usually on a pur�ed diet with nectar thickened liquids
Recurrent admission within couple of days of discharge requiring high oxygen and bilateral pneumonia with sepsis picture all concerning for recurrent aspiration issue. Question comes as this is pharyngeal or esophageal. She is maintained on pur�ed
diet for many years now. Her VSE last week did not show any laryngeal penetration and was cleared for pureed and thick liquids but there was a esophageal web which at this time probably should be investigated.
GI input noted-they had a discussions with the family regarding esophageal web evaluation with endoscopy. With the risk of anesthesia and no wishes of PEG tube esophageal evaluation is on hold. GI signed off.
With dysphagia being now primary issue and a change from her baseline before attributing it to progression of CP asked Neuro eval -appt recs. Follow on current AED; Trileptal levels therapeutic..
#Mild transaminitis from infection
LFTs improved
#Acute on chronic hypotension
Continue midodrine 15 mg 3 times daily
stable
#Cerebral Palsy
#Seizure Disorder
- Stable. Family notes that patient has frequent - though mild - breakthrough seizures.
- Continue onfi, Trileptal, tiagabin
#History of Ovarian Cancer
- S/p surgery and then hormonal therapy.
- Has completed treatment x 5 years.
- Remains on letrozole at family preference.
#Functional quadriplegia due to cerebral palsy
- Dependent on family for all care
#DVT Prophylaxis: Lovenox
#Code Status: Full
OOB to chair
PT eval
Rectal suppository for constipation
Check home O2 eval
Reached medical stability for discharge home.
Discussed with father at bedside regarding diagnosis, current treatments, discharge plan.
Total time of discharge 35 minutes
Anticipated Discharge: Today
Subjective/Interval History
-
Date of Service: April 03, 2024
Doing well. Currently chest 1.5 L of oxygen. Eating much better per father at bedside.
Objective Data
-
Vital Signs:
Vital Signs
Temp Pulse Resp BP Pulse Ox
98.7 F 74 16 89/52 93
04/03/24 07:00 04/03/24 07:00 04/03/24 07:00 04/03/24 07:00 04/03/24 07:00
I&O
04/02/24 04/03/24 04/04/24
06:59 06:59 06:59
Intake Total 420 / 420 400 / 400
Output Total 770 / 770 750 / 750
Balance -350 / -350 -350 / -350
Review of Systems
-
Unable to obtain full review of systems at this time due to: Patient Non-verbal
Physical Exam
-
General: No Apparent Distress
Respiratory: Non Labored Respirations; Negative Wheezes, Rhonchi or Accessory Resp Muscle Use
Cardiac: Regular Rhythm and S1/S2; Negative Tachycardic
GI: Soft
Neuro: Awake and Alert
Psych: Calm
[2024-04-03] MEDS: DULCOLAX 10 MG RECTAL (11:34)
--- NOTE | 2024-04-03 14:09 | W.DS.TRANS ---
DC Summary - Demographic Analyst
-
Discharge Instructions:
Discharge Diagnosis/Procedures #Sepsis
#Fever
#Probable aspiration with seems to be recurrent.
#Chronic dysphagia
# History for esophageal web
#Cerebral Palsy
#Seizure Disorder
Additional Diets Pureed with nectar thick liquids
Activity As tolerated
Driving Restrictions No driving
Other Services VN
Instructions:
Stand-Alone Forms:
Changes to Home Medications: Yes
Discharge Medications:
DC Medications w/original date entered in [facility]
Lactobac no.2-Bifidobac no.1-S. thermo 112.5 billion cell capsule (Visbiome) 1 cap PO DAILY Gastrointestinal Issue 03/17/24
ascorbic acid (vitamin C) 500 mg tablet (Vitamin C) 500 mg PO DAILY Supplement 03/17/24
cetirizine 10 mg tablet (Zyrtec) 10 mg PO DAILY PRN allergies 03/17/24
clobazam 10 mg tablet (Onfi) 10 mg PO BID Seizures 03/17/24
docusate sodium 50 mg/5 mL oral liquid 100 mg PO BIDPRN PRN constipation 03/17/24
fluticasone propionate 50 mcg/actuation nasal spray,suspension 2 spray intranasal DAILY Allergies 03/17/24
letrozole 2.5 mg tablet 2.5 mg PO HS Hormonal Agent 03/17/24
montelukast 10 mg tablet (Singulair) 10 mg PO HS Allergies 03/17/24
nitrofurantoin macrocrystal 50 mg capsule 50 mg PO DAILY Infection 03/17/24
oxcarbazepine 600 mg tablet (Trileptal) 600 mg PO BID Seizures 03/17/24
polyethylene glycol 3350 17 gram oral powder packet (Miralax) 17 g PO DAILY PRN constipation 03/17/24
sennosides 8.8 mg/5 mL oral syrup (senna) 17.6 mg PO HSPRN PRN constipation 03/17/24
tiagabine 4 mg tablet 4 mg PO HS Seizures 03/17/24
acetaminophen 500 mg tablet (Tylenol Extra Strength) 1,000 mg PO Q6H PRN mild pain 03/23/24
midodrine 5 mg tablet 15 mg PO BID Blood Pressure 03/23/24
amoxicillin 250 mg-potassium clavulanate 62.5 mg/5 mL oral suspension 10 ml PO Q12 #75 mL 04/03/24
Home Medication Changes
New medication-Augmentin
Pending Results: No
[2024-04-03 15:00] VITALS: BP 142/89
--- NOTE | 2024-04-03 15:41 | CM ---
Addendum entered by SOFIA Molina 04/03/24 16:14:
# for Fax for [facility] [phone]
Original Note:
Received notification from RN that patient needs o2. Spoke with Delfino from [facility] who stated that she can bring o2 in today. Texted attending to detail the need in note and RN stated she illustrated patient desatting as respiratory
could not move patient.
Faxed Delfino from [facility] the following: script, chart note H&P, and demographics. Attending stated note being put in chart detailing the need.
RN documented desaturation she stated under vitals. Faxed that over as well. Will fax the rest as it becomes available.
Plan: Case management will continue to follow and assist with discharge planning. Home with 24 hr care and o2.
--- NOTE | 2024-04-03 16:21 | PTCARENOTE ---
pt was assessed off oxygen, patient was weaned off oxygen over two days. Patient stating 92-93 percent on 0.5. When patient taken off oxygen patient desatting to 84 and respirations increasing. patient put back on oxygen and seen more comfortable
and stating in the mid 90s on 0.5L of oxygen.
--- NOTE | 2024-04-03 16:29 | W.DCSUMMARY ---
Addendum entered and electronically signed by Horacio Gallagher MD 04/10/24 08:12:
Correction -Under secondary diagnosis #2 should be read as cerebral palsy
Original Note:
Discharge Summary
Discharge Data
Date of Admission: 03/23/24
Date of Discharge: 04/03/24
-
Pending Results: No
Hospital Course
Primary diagnosis:
#Sepsis
#Bilateral pneumonia -Probable aspiration with seems to be recurrent.
#Chronic dysphagia
# History for esophageal web
Secondary diagnosis:
Chronic hypertension
Several thousand
Seizure disorder Nexis history of ovarian cancer
Functional quadriplegia
Hospital course:
Patient presented with fever and noted to be septic. She was noted to be hypoxic with 74% on room air. Further evaluation showed bilateral patchy lung opacities concerning for bilateral pneumonia. She was just discharged after treatments for
episode of pneumonia thought to be aspiration pneumonitis.
In view of recurrent aspiration pneumonia she was seen by speech and had a VSE which cleared for pur�ed and nectar thick liquids. In view of history of esophageal web a GI consultation was also obtained but with the risk of anesthesia the family
wish not to proceed with any esophageal MRI evaluation. With frequent breakthrough seizures which are petit mal kind neurology consultation was obtained who noted AED levels within normal limiting and without evidence of breakthrough seizures here
did not make any changes to her regimen.
She is requiring high fraction for which urine came down nicely to 2 L of oxygen which was arranged at the time of discharge .
Consultants on board:
ID-Dr. Trotter
Neurology-Dr. Devine
Discharge Plan
-
Patient Disposition: Home with Home Care
Discharge Diagnosis/Procedures: #Sepsis
#Fever
#Probable aspiration with seems to be recurrent.
#Chronic dysphagia
# History for esophageal web
#Cerebral Palsy
#Seizure Disorder
Additional Diets: Pureed with nectar thick liquids
Activity: As tolerated
Driving Restrictions: No driving
Other Services: VN
Referrals:
Timbo Courtney MD [Family Provider] - in less than 1 week
Prescriptions:
New
amoxicillin-pot clavulanate 250-62.5 mg/5 mL Suspension For Reconstitution
10 ml PO Q12 Qty: 75 0RF
Rx Instructions:
for 3 days
Continued
docusate sodium 50 mg/5 mL Liquid
100 mg PO BIDPRN PRN (Reason: constipation)
tiagabine 4 mg Tablet
4 mg PO HS
Patient Comments:
03/23/2024, crushed in applesauce.
oxcarbazepine [Trileptal] 600 mg tablet
600 mg PO BID
Patient Comments:
03/23/2024, crushed in applesauce.
montelukast [Singulair] 10 mg Tablet
10 mg PO HS
Patient Comments:
03/23/2024, crushed in applesauce.
clobazam [Onfi] 10 mg Tablet
10 mg PO BID
Patient Comments:
03/23/2024, crushed in applesauce.
polyethylene glycol 3350 [Miralax] 17 gram Powder In Packet
17 g PO DAILY PRN (Reason: constipation)
cetirizine [Zyrtec] 10 mg Tablet
10 mg PO DAILY PRN (Reason: allergies)
Patient Comments:
03/23/2024, crushed in applesauce.
sennosides [senna] 8.8 mg/5 mL Syrup
17.6 mg PO HSPRN PRN (Reason: constipation)
ascorbic acid (vitamin C) [Vitamin C] 500 mg Tablet
500 mg PO DAILY
Patient Comments:
03/23/2024, crushed in applesauce.
letrozole 2.5 mg Tablet
2.5 mg PO HS
Patient Comments:
03/23/2024, crushed in applesauce.
fluticasone propionate 50 mcg/actuation [place],Suspension
2 spray INTRANASAL DAILY
Visbiome 112.5 billion cell Capsule
1 cap PO DAILY
Patient Comments:
03/23/2024, crushed in applesauce.
acetaminophen [Tylenol Extra Strength] 500 mg Tablet
1,000 mg PO Q6H PRN (Reason: mild pain)
Patient Comments:
03/23/2024, crushed in applesauce.
midodrine 5 mg tablet
15 mg PO BID
Patient Comments:
03/23/2024, crushed in applesauce.
Held
nitrofurantoin macrocrystal 50 mg Capsule
50 mg PO DAILY
Hold Instructions: Resume on 04/06/24. resume after done with Augmentin antibiotic
Patient Comments:
03/23/2024, crushed in applesauce.
Discharge Orders:
Discharge Patient (As Directed); Ordered 04/03/24
Ordered By: Horacio Gallagher
Care Plan Goals
Care Plan Goals:
Problem: Pain
Goal: Experience adequate pain control and/or relief of pain.
Instructions: Use medication for pain management as prescribed by your physician. Use non-medication pain management strategies/techniques as directed by your health care team.
Discharge Date and Time
Discharge Date/Time: 04/03/24 16:15
Print Language: UPPER SORBIAN
== END 2024-04-03 16:15 | disposition home health service (06) | DRG 871 ==
LOC: 3 WEST ACU 22:37
PROVIDERS: Emergency Medicine; Family Medicine; Nurse Practitioner Gerontology; Registered Nurse; ADMITTING PHYSICIAN Student in an Organized Health Care Education/Training Program; ATTENDING PHYSICIAN Internal Medicine; CONSULT PHYSICIAN Internal Medicine Gastroenterology; CONSULT PHYSICIAN Internal Medicine Infectious Disease; CONSULT PHYSICIAN Psychiatry & Neurology Neurology; EMERGENCY PHYSICIAN Emergency Medicine; FAMILY PHYSICIAN Family Medicine
DX: A41.89 Other specified sepsis (principal); J69.0 Pneumonitis due to inhalation of food and vomit; Q39.4 Esophageal web; R53.2 Functional quadriplegia; R65.21 Severe sepsis with septic shock; J96.01 Acute respiratory failure with hypoxia; G80.8 Other cerebral palsy; I10 Essential (primary) hypertension; Z85.43 Personal history of malignant neoplasm of ovary; G40.409 Other generalized epilepsy and epileptic syndromes, not intractable, without status epilepticus; Z11.52 Encounter for screening for COVID-19
CPT/HCPCS: 51701; 71045; 74018; 80048; 80053; 80183; 81003; 81015; 82652; 82805; 82962; 83605; 83735; 84100; 84145; 85025; 85027; 87040; 87045; 87046; 87324; 87328; 87329; 87427; 87449; 87502; 87811; 89055; 92526; 92610; 93005; 94640; 96365; 99291

== ENCOUNTER 2024-04-07 19:44 | Inpatient (IN) | payer MEDICARE, OTHER, SELFPAY ==
[2024-04-07] VITALS (9 sets, daily range): BP systolic 76–172; BP diastolic 48–147; BMI 25.3; BMI 27.2
--- NOTE | 2024-04-07 15:57 | ED.GENMED ---
History of Present Illness
General
Chief Complaint: Breathing Problem
Source: records, family, ambulance crew, previous radiology exam and previous hospital records
Exam Limitations: non verbal-adult and altered mental status
Time Seen by Provider: 04/07/24 15:41
Nursing documentation reviewed up to this point in time: agreed with
Travel History
Have you had any contact with someone who has COVID-19?: No
Do you have any symptoms of coronavirus? Fever > 100 degrees, chills, cough, shortness of breath, sore throat, loss of taste or smell, muscle aches, or headache?: Unable to Answer
History of Present Illness
History of Present Illness:
48-year-old female special needs numerous admissions recently with UTI and aspiration just discharged recently after sepsis syndrome from aspiration doing okay until yesterday had increased cough lethargy EMS was called low pulse ox, question
seizure-like activity, brought here where she is febrile hypoxic,
Past History
Past History
ED Past Medical History: Seizures and Other (Cerebral palsy)
Social History
Tobacco: Non-smoker
Alcohol: None
Drug: None
Personal: Single
Living: with family
Employment: Not employed
Review of Systems
Review of Systems
Other source history: family and ambulance crew
All Other Systems: Not applicable
Phy Exam
Physical Exam
Physical Exam:
Physical Exam
General: Special-needs ill-appearing female
Neck: Dry lips
Heart: Tachycardic
Lungs: Rhonchi bilateral
Abdomen: Nontender
Neuro: No seizure-like activity nonverbal
Skin: no rash
Psychiatric: Unable to assess
Extremities: No edema
Scores
Heart Failure Risk
Heart Failure Risk Score: Not Applicable
Course
Orders/Labs/Results
Orders:
Orders
04/07/24 15:46
Electrocardiogram (*1) Urgent
Reason for Study: Other
Other Reason for Exam: sepsis
Cardiac Monitoring- Treatment ONCE
EKG- Treatment ONCE
IV Insert/Care/Rem.- Treatment PRN
Straight cath- Treatment ONCE
0.9% Sodium Chloride 1000 ml [Nss] 2,000 ml IV BOLUS
Acetaminophen [Tylenol/Feverall] 650 mg RECTAL NOW STA
CR Chest Portable - 1 View Urgent
Comment:
Reason For Exam: Fever
Reason Study Needs to be Portable: Patient Unstable
Pulse Ox/cont/shift [RESP] Urgent
Quantity: 1
04/07/24 15:57
Urinalysis Reflex To Culture Urgent
Date Specimen was Collected: 04/07/24
Time Specimen was Collected: 15:48
Urine Microscopic Reflex Cult Urgent
04/07/24 16:00
Blood Culture Q30M
[facility] Source: Blood/Venous
Specimen Description:
04/07/24 16:01
Piperacillin/Tazo 3.375 Gram [Zosyn] 3.375 gram in 50 ml IV NOW
04/07/24 16:13
Complete Blood Count/With Diff Urgent
Comprehensive Metabolic Panel Urgent
Lactic Acid Q4H
Comment: CANCEL 2nd LACTIC ACID IF 1st LACTIC ACID IS LESS THAN 2
Blood Culture Q30M
[facility] Source: Blood/Venous
Specimen Description:
04/07/24 16:18
Influenza A+B Rapid Molecular Urgent
[facility] Source: Nasal Swab
Specimen Description:
04/07/24 20:00
Lactic Acid Q4H
Comment: CANCEL 2nd LACTIC ACID IF 1st LACTIC ACID IS LESS THAN 2
Abnormal Lab Results
04/07/24 04/07/24
15:57 16:13
MCHC 32.0 L g/dL
(33.0-37.0)
MPV 11.4 H fL
(7.4-10.4)
Absolute Neuts (auto) 7.4 H 10^3/uL
(1.4-6.5)
Absolute Lymphs (auto) 0.4 L 10^3/uL
(1.2-3.4)
Neutrophils % 89.4 H %
(42.2-75.2)
Lymphocytes % 4.5 L %
(20.5-51.1)
Sodium 146 H mmol/L
(135-145)
BUN 41 H mg/dl
(7-17)
Creatinine 1.5 H mg/dL
(0.6-1.0)
Glucose 111 H mg/dl
(70-99)
Lactic Acid 2.9 H mmol/L
(0.7-2.0)
Calcium 12.8 H mg/dl
(8.4-10.2)
AST 150 H U/L
(14-36)
ALT 140 H U/L
(0-35)
Alkaline Phosphatase 269 H U/L
(38-126)
Leukocyte Esterase Rfl Trace A
(Negative)
04/07/24 16:13
04/07/24 16:13
Vital Signs
Initial and Last Documented VS:
Initial Vital Signs
Temp Pulse BP Pulse Ox
102.8 F H 69 158/132 96
04/07/24 15:41 04/07/24 15:41 04/07/24 15:41 04/07/24 15:41
Last Documented Vital Signs
Temp Pulse Resp BP Pulse Ox
102.8 F H 105 25 172/147 96
04/07/24 15:41 04/07/24 16:00 04/07/24 16:00 04/07/24 16:00 04/07/24 16:00
MDM/Problems Addressed
Differential Diagnosis Includes:
Sepsis UTI aspiration medication effect bacteremia
MDM/Problems Addressed:
Fever lethargy hypoxia
Chronic conditions affecting care: Neurological disorder
Acute Exacerbation and/or Progression of Chronic Illness: Neurological disorder
*Radiology
Radiology exam reviewed: preliminary read by ED provider
*Pulse Oximetry
Patient hypoxic: yes
*EKG
Interpreted by ED Provider?: Yes
Interpretation: abnormal
Comparison EKG: no comparison EKG present
Heart Rate: 120
Rate: tachycardiac
Rhythm: sinus
Ischemia: non-specific ST changes
*Welt Pocket Machine Operator Interpretation
Rate: tachycardiac
Interpretation: abnormal
Heart Rate: 120
*Critical Care Note
Total Time (30-74mins, 75-104mins- exclusive of procedures): 30
Update Note
Update Note:
Update, reviewed with mother apparently full code was on a ventilator 1 time at [place],
Will start resuscitation here IV fluids antipyretics antibiotics
Update, labs noted chest x-ray noted
ED Attending Note
-
Portions of this chart may have been created with voice recognition software.� Occasional wrong word or��sound alike� substitutions may have occurred due to the inherent limitations of voice recognition software.
Discharge Plan
Departure
Patient Disposition: Admit
Date of Disposition: 04/07/24
Time of Disposition: 17:05
Admit to: Telemetry
Presentation/result/management discussed w/ accepting MD/DO: Hospitalist
Patient with high blood pressure during this ER visit?: Yes
Condition: Fair
Covid-19: Not Applicable
Discharge Problem:
Sepsis, Transaminitis, Functional quadriplegia, Aspiration pneumonia, Cerebral palsy, History of ovarian cancer, Seizure disorder
Prescriptions:
No Action
docusate sodium 50 mg/5 mL Liquid
100 mg PO BIDPRN PRN (Reason: constipation)
tiagabine 4 mg Tablet
4 mg PO HS
Patient Comments:
03/23/2024, crushed in applesauce.
oxcarbazepine [Trileptal] 600 mg tablet
600 mg PO BID
Patient Comments:
03/23/2024, crushed in applesauce.
montelukast [Singulair] 10 mg Tablet
10 mg PO HS
Patient Comments:
03/23/2024, crushed in applesauce.
clobazam [Onfi] 10 mg Tablet
10 mg PO BID
Patient Comments:
03/23/2024, crushed in applesauce.
nitrofurantoin macrocrystal 50 mg Capsule
50 mg PO DAILY
Hold Instructions: Resume on 04/06/24. resume after done with Augmentin antibiotic
Patient Comments:
03/23/2024, crushed in applesauce.
polyethylene glycol 3350 [Miralax] 17 gram Powder In Packet
17 g PO DAILY PRN (Reason: constipation)
cetirizine [Zyrtec] 10 mg Tablet
10 mg PO DAILY PRN (Reason: allergies)
Patient Comments:
03/23/2024, crushed in applesauce.
sennosides [senna] 8.8 mg/5 mL Syrup
17.6 mg PO HSPRN PRN (Reason: constipation)
ascorbic acid (vitamin C) [Vitamin C] 500 mg Tablet
500 mg PO DAILY
Patient Comments:
03/23/2024, crushed in applesauce.
letrozole 2.5 mg Tablet
2.5 mg PO HS
Patient Comments:
03/23/2024, crushed in applesauce.
fluticasone propionate 50 mcg/actuation [place],Suspension
2 spray INTRANASAL DAILY
Visbiome 112.5 billion cell Capsule
1 cap PO DAILY
Patient Comments:
03/23/2024, crushed in applesauce.
acetaminophen [Tylenol Extra Strength] 500 mg Tablet
1,000 mg PO Q6H PRN (Reason: mild pain)
Patient Comments:
03/23/2024, crushed in applesauce.
midodrine 5 mg tablet
15 mg PO BID
Patient Comments:
03/23/2024, crushed in applesauce.
amoxicillin-pot clavulanate 250-62.5 mg/5 mL Suspension For Reconstitution
10 ml PO Q12 Qty: 75 0RF
Rx Instructions:
for 3 days
Interventions
Interventions:
*General Assessment Last Done: 04/07/24 16:00
*Neglect/Abuse Screening Last Done: 04/07/24 16:00
ED- Fall Risk Assessment Last Done: 04/07/24 16:00
*ED COVID-19 Vaccine History Last Done: 04/07/24 16:00
ED- Cardiac Assessment Last Done: 04/07/24 16:00
ED- Pulmonary Assessment Last Done: 04/07/24 16:00
Discharge Date and Time
Print Language: HONG KONGER
[2024-04-07] MEDS: TYLENOL/FEVERALL 650 MG RECTAL (16:18)
[2024-04-07 16:31] LABS: Urine Albumin Negative (Neg - Trace); Urine Bilirubin Negative (Negative); Urine Character Slightly Cloudy (Clear); Urine Color Yellow; Urine Glucose Negative (Negative); Urine Ketone Negative (Negative); Urine Leukocyte Trace (Negative); Urine Nitrite Negative (Negative); Urine Occult Blood Negative (Negative); Urine Specific Gravity 1.015 (<1.030); Urine Urobilinogen Negative (Neg - 1+)
[2024-04-07] MEDS: NSS 2000 IV (16:33)
[2024-04-07 16:35] LABS: % Basophils 0.2 % (0-2); % Eosinophils 1.6 % (0-6); % Immature Granulocytes 0.4 % (0-0.5); % Lymphocytes 4.5 % (20.5-51.1); % Monocytes 3.9 % (1.7-9.3); % Neutrophils 89.4 % (42.2-75.2); Absolute Eosinophils 0.1 10^3/uL (0-0.7); Absolute Lymphocytes 0.4 10^3/uL (1.2-3.4); Absolute Monocytes 0.3 10^3/uL (0.1-0.6); Absolute Neutrophils 7.4 10^3/uL (1.4-6.5); Hematocrit 41.2 % (37.0-47.0); Hemoglobin 13.2 g/dL (12.0-16.0); Mean Corpuscular Hgb 29.3 pg (27.0-31.0); Mean Corpuscular Volume 91.6 fL (81.0-99.0); Mean Platelet Volume 11.4 fL (7.4-10.4); Nucleated Red Blood Cells % 0 %; Platelet Count 240 10^3/uL (130-400); Red Cell Dist. Width 14.2 % (11.5-14.5); White Blood Cell Count 8.2 10^3/uL (4.8-10.8)
[2024-04-07] MEDS: ZOSYN 50 IV (16:41)
[2024-04-07 16:47] LABS: Lactic Acid 2.9 mmol/L (0.7-2.0)
[2024-04-07 16:50] LABS: ALT (SGPT) 140 U/L (0-35); AST (SGOT) 150 U/L (14-36); Albumin 3.8 g/dl (3.5-5.0); Alkaline Phosphatase 269 U/L (38-126); Blood Urea Nitrogen 41 mg/dl (7-17); Calcium 12.8 mg/dl (8.4-10.2); Carbon Dioxide 28 mmol/L (22-30); Chloride 107 mmol/L (98-107); Estimated Creatinine Clearance 36 ml/min; Glucose 111 mg/dl (70-99); Potassium 4.4 mmol/L (3.5-5.1); Sodium 146 mmol/L (135-145); Total Bilirubin 0.6 mg/dl (0.2-1.3); Total Protein 7.1 g/dl (6.3-8.2); eGFR 43.25
[2024-04-07 17:07] LABS: Urine Amorphous Seen; Urine Bacteria Few (Negative); Urine Calcium Oxalate Crystals Present; Urine Red Blood Cell 0-2 /HPF (0-2); Urine White Cell 16-20 /HPF (0-5)
--- NOTE | 2024-04-07 18:02 | HPS.HSE ---
Addendum entered and electronically signed by Lauro Doe MD 04/07/24 19:30:
Assessment/Plan
HPI: 48-year-old with past medical history for seizure, cerebral palsy presented with shortness of breath. She was noted to be lethargic and jittery. History obtained primarily from family. Patient lives with her parents. She was noted to have
seizure activity with fever at home.
Patient was hypoxic on her usual 1 L of home oxygen. Patient received fluids and Zosyn in ER. Admitting for further management .
#Sepsis
#Fever
#Probable aspiration with seems to be recurrent.
#Concern for UTI
-Status post Zosyn in the ER
-Due to STEVE, started Cefepime and Flagyl
-Follow cultures
-Continue IV fluids
#Chronic dysphagia
# History for esophageal web
-She is usually on a pur�ed diet with nectar thickened liquids
-NPO (except meds) for now
-Speech consult
#Hypernatremia
-From dehydration
-Received 2 liter NSS bolus in the ER
-Will do D5 Half-Normal Saline at 75 cc/hr
-Check repeat labs
#Acute Kidney Injury
-Suspected prerenal; poor PO intake reported at home
-Continue IV fluids
#Acute Hypercalcemia
-Suspected from dehydration -- poor PO intake reported at home
-Continue IV fluids
#Mild transaminitis from infection
-Possibly from infection/sepsis -- trend LFTs
#Acute on chronic hypotension
-Continue midodrine 15 mg 3 times daily with parameters
#Cerebral Palsy
#Seizure Disorder
- Stable.
- Continue onfi, Trileptal, tiagabin
#History of Ovarian Cancer
- S/p surgery and then hormonal therapy.
- Has completed treatment x 5 years.
- Remains on letrozole at family preference.
#Functional quadriplegia due to cerebral palsy
- Dependent on family for all care
#DVT Prophylaxis: Heparin Subq
#Code Status: Full
Original Note:
Family Physician
-
Family Physician: Timbo Courtney
Chief Complaint
-
Cough, Lethargy
History of Present Illness
48-year-old female with past medical history of history of urinary tract infection, chronic hypotension, hypertension, seizure disorder, cerebral palsy, chronic dysphagia, esophageal web, ovarian cancer and functional quadriplegia due to cerebral
palsy presented with shortness of breath and hypoxia. Patient was recently hospitalized from March 23, 2024 to April 03, 2024 with sepsis and bilateral pneumonia. Patient's parents were present in the emergency room where patient was in and assisted
with the history. They report that patient's symptoms started a few hours after breakfast today and she was 'jittery.'
Medical History
Past Medical History
Past Medical History: Reports Other (As per HPI above)
Past Surgical History: Reports Other (LUCERO/BSO Appendectomy vagus nerve stimulator implant)
Social History
Tobacco: Non-smoker
Alcohol: None
Drug: None
Family History
Family History: Not pertinent
Allergies / Home Medications
Allergies reflects when Allergies were last updated in [facility].
Home Medications with original date entered in [facility]
Allergy/Medication List:
Allergies
Allergy/AdvReac Type Severity Reaction Status Date / Time
brompheniramine Allergy hyper Verified 04/07/24 16:05
[From Dimetapp Cold-Allergy
(PE)]
chloral hydrate Allergy hyper Verified 04/07/24 16:05
diphenhydramine Allergy hyper Verified 04/07/24 16:05
[From Benadryl]
latex Allergy Swelling Verified 04/07/24 16:05
phenobarbital Allergy hyper Verified 04/07/24 16:05
phenylephrine Allergy hyper Verified 04/07/24 16:05
[From Dimetapp Cold-Allergy
(PE)]
phenytoin [From Dilantin] Allergy Rash Verified 04/07/24 16:05
Sulfa (Sulfonamide Allergy Hives Verified 04/07/24 16:05
Antibiotics)
topiramate [From Topamax] Allergy Rash Verified 04/07/24 16:05
Home Medications
Lactobac no.2-Bifidobac no.1-S. thermo 112.5 billion cell capsule (Visbiome) 1 cap PO DAILY Gastrointestinal Issue 03/17/24
ascorbic acid (vitamin C) 500 mg tablet (Vitamin C) 500 mg PO DAILY Supplement 03/17/24
cetirizine 10 mg tablet (Zyrtec) 10 mg PO DAILY PRN allergies 03/17/24
clobazam 10 mg tablet (Onfi) 10 mg PO BID Seizures 03/17/24
docusate sodium 50 mg/5 mL oral liquid 100 mg PO BIDPRN PRN constipation 03/17/24
fluticasone propionate 50 mcg/actuation nasal spray,suspension 2 spray intranasal DAILY Allergies 03/17/24
letrozole 2.5 mg tablet 2.5 mg PO HS Hormonal Agent 03/17/24
montelukast 10 mg tablet (Singulair) 10 mg PO HS Allergies 03/17/24
nitrofurantoin macrocrystal 50 mg capsule 50 mg PO DAILY Infection 03/17/24
oxcarbazepine 600 mg tablet (Trileptal) 600 mg PO BID Seizures 03/17/24
polyethylene glycol 3350 17 gram oral powder packet (Miralax) 17 g PO DAILY PRN constipation 03/17/24
sennosides 8.8 mg/5 mL oral syrup (senna) 17.6 mg PO HSPRN PRN constipation 03/17/24
tiagabine 4 mg tablet 4 mg PO HS Seizures 03/17/24
acetaminophen 500 mg tablet (Tylenol Extra Strength) 1,000 mg PO Q6H PRN mild pain 03/23/24
midodrine 5 mg tablet 15 mg PO BID Blood Pressure 03/23/24
amoxicillin 250 mg-potassium clavulanate 62.5 mg/5 mL oral suspension 10 ml PO Q12 #75 mL 04/03/24
Review of Systems
-
Unable to obtain full review of systems at this time due to: Patient Non-verbal
Physical Exam
Vital Signs
Vital Signs
Temp Pulse Resp BP Pulse Ox
102.8 F H 84 19 172/147 97
04/07/24 15:41 04/07/24 17:30 04/07/24 17:30 04/07/24 16:00 04/07/24 17:30
Physical Exam
General: No Apparent Distress
HEENT: NormoCephalic
Respiratory: Rhonchi
Cardiac: S1/S2 and Regular Rhythm
GI: Soft, Non Tender and Normal Bowel Sounds
Musculoskeletal: No Cyanosis
Skin: Warm and Dry
Neuro: Other (Sleeping)
Psych: Calm
Laboratory Results
-
04/07/24 16:13
04/07/24 16:13
Laboratory Results
Lactic Acid 2.9 mmol/L (0.7-2.0) H 04/07/24 16:13
Total Bilirubin 0.6 mg/dl (0.2-1.3) 04/07/24 16:13
AST 150 U/L (14-36) H 04/07/24 16:13
ALT 140 U/L (0-35) H 04/07/24 16:13
Alkaline Phosphatase 269 U/L (38-126) H 04/07/24 16:13
Impression/Plan
-
Assessment/Plan
HPI: 48-year-old with past medical history for seizure, cerebral palsy presented with shortness of breath. She was noted to be lethargic and jittery. History obtained primarily from family. Patient lives with her parents. She was noted to have
seizure activity with fever at home.
Patient was hypoxic on her usual 1 L of home oxygen. Patient received fluids and Zosyn in ER. Admitting for further management .
#Sepsis
#Fever
#Probable aspiration with seems to be recurrent.
#Chronic dysphagia
# History for esophageal web
She is usually on a pur�ed diet with nectar thickened liquids
NPO for now
#Hypernatremia
-From dehydration
-Received 2 liter NSS bolus in the ER
-Will do D5 Half-Normal Saline at 75 cc/hr
-Check repeat labs
#Acute Kidney Injury
-Suspected prerenal; poor PO intake reported at home
-Continue IV fluids
#Acute Hypercalcemia
-Suspected from dehydration -- poor PO intake reported at home
-Continue IV fluids
#Mild transaminitis from infection
-Possibly from infection/sepsis -- trend LFTs
#Acute on chronic hypotension
-Continue midodrine 15 mg 3 times daily with parameters
#Cerebral Palsy
#Seizure Disorder
- Stable.
- Continue onfi, Trileptal, tiagabin
#History of Ovarian Cancer
- S/p surgery and then hormonal therapy.
- Has completed treatment x 5 years.
- Remains on letrozole at family preference.
#Functional quadriplegia due to cerebral palsy
- Dependent on family for all care
#DVT Prophylaxis: Heparin Subq
#Code Status: Full
[2024-04-07] MEDS: FLAGYL 500 MG 100 IV (20:12)
[2024-04-07] MEDS: D5/0.45%NACL 500 IV (21:32)
[2024-04-07] MEDS: ProAmatine 15 MG PO (21:35)
[2024-04-07] MEDS: TRILEPTAL 600 MG PO (21:36)
[2024-04-07] MEDS: SINGULAIR 10 MG PO (21:37)
[2024-04-07] MEDS: FEMARA 2.5 MG PO (21:37)
[2024-04-07] MEDS: NON-FORMULARY ITEM 4 MG PO (21:38)
[2024-04-07] MEDS: MAXIPIME 2000 MG IV (21:48)
[2024-04-07] MEDS: STERILE WATER FOR INJECTION 10 ML IV (21:49)
[2024-04-07] MEDS: ONFI 10 MG PO (22:35)
[2024-04-07] MEDS: HEPARIN 5000 UNITS SC (23:25)
[2024-04-08] VITALS (55 sets, daily range): BP systolic 67–149; BP diastolic 37–119; BMI 27.1
[2024-04-08] MEDS: ZOFRAN 4 MG IV ×2 (01:49→10:18)
[2024-04-08 02:10] LABS: Blood Urea Nitrogen 40 mg/dl (7-17); Calcium 10.8 mg/dl (8.4-10.2); Carbon Dioxide 28 mmol/L (22-30); Chloride 112 mmol/L (98-107); Estimated Creatinine Clearance 41 ml/min; Glucose 121 mg/dl (70-99); Magnesium 1.7 mg/dl (1.6-2.3); Potassium 4.5 mmol/L (3.5-5.1); Sodium 146 mmol/L (135-145); eGFR 51.36
[2024-04-08] MEDS: D5/0.45%NACL IV (04:35)
[2024-04-08] MEDS: FLAGYL 500 MG 100 IV ×3 (04:36→20:08)
[2024-04-08] MEDS: D5/0.45%NACL 1000 IV ×2 (04:37→17:49)
[2024-04-08 04:44] LABS: % Basophils 0.3 % (0-2); % Eosinophils 0.3 % (0-6); % Immature Granulocytes 0.5 % (0-0.5); % Lymphocytes 7.1 % (20.5-51.1); % Monocytes 10.6 % (1.7-9.3); % Neutrophils 81.2 % (42.2-75.2); Absolute Lymphocytes 0.4 10^3/uL (1.2-3.4); Absolute Monocytes 0.7 10^3/uL (0.1-0.6); Hematocrit 33.9 % (37.0-47.0); Hemoglobin 10.9 g/dL (12.0-16.0); Mean Corp Hgb Conc. 32.2 g/dL (33.0-37.0); Mean Corpuscular Hgb 29.5 pg (27.0-31.0); Mean Corpuscular Volume 91.9 fL (81.0-99.0); Mean Platelet Volume 11.4 fL (7.4-10.4); Nucleated Red Blood Cells % 0 %; Platelet Count 163 10^3/uL (130-400); Red Blood Cell Count 3.69 10^6/uL (4.20-5.40); Red Cell Dist. Width 14.3 % (11.5-14.5); White Blood Cell Count 6.2 10^3/uL (4.8-10.8)
[2024-04-08 05:10] LABS: ALT (SGPT) 123 U/L (0-35); AST (SGOT) 113 U/L (14-36); Albumin 2.8 g/dl (3.5-5.0); Alkaline Phosphatase 189 U/L (38-126); Blood Urea Nitrogen 40 mg/dl (7-17); Calcium 10.5 mg/dl (8.4-10.2); Carbon Dioxide 27 mmol/L (22-30); Chloride 112 mmol/L (98-107); Estimated Creatinine Clearance 44 ml/min; Glucose 107 mg/dl (70-99); Magnesium 1.7 mg/dl (1.6-2.3); Potassium 4.2 mmol/L (3.5-5.1); Sodium 144 mmol/L (135-145); Total Bilirubin 0.5 mg/dl (0.2-1.3); Total Protein 5.6 g/dl (6.3-8.2); eGFR 56.54
--- NOTE | 2024-04-08 06:42 | PTCARENOTE ---
Pt. admitted to from ED, parents at bedside. Pt nonverbal, no s/s of pain, no seizure activities noted. NSR on tele monitor.
[2024-04-08] MEDS: VISBIOME 1 CAP PO (08:52)
[2024-04-08] MEDS: VITAMIN C 500 MG PO (08:53)
[2024-04-08] MEDS: HEPARIN 5000 UNITS SC ×3 (08:53→23:27)
[2024-04-08] MEDS: ProAmatine 15 MG PO (08:53)
[2024-04-08] MEDS: ONFI 10 MG PO (08:53)
[2024-04-08] MEDS: TRILEPTAL 600 MG PO (08:53)
[2024-04-08] MEDS: MAXIPIME 2000 MG IV ×2 (09:06→21:31)
[2024-04-08] MEDS: STERILE WATER FOR INJECTION 10 ML IV ×2 (09:06→21:30)
--- NOTE | 2024-04-08 09:52 | PTOTSP ---
Addendum entered and electronically signed by ST Alyce 04/08/24 09:56:
6. Meds crushed in puree
Original Note:
FORESTRY FARM LABORER EVALUATION
Mild to moderately impaired oropharyngeal swallow with textures trialed this date (IDDSI 4/IDDSI 2). Aspiration risk is increased 2/2 possible PNA w/ concern for UTI; recent PNA; esophageal web; and hx of modified diet, CP, and seizures.
Recommendations reviewed with patient and mother at bedside this date.
Recommend:
1. IDDSI Level 4 Puree, IDDSI Level 2 (Mildly Thick Liquids)
2. FULL SUPERVISION and ASSISTANCE
3. Strategies: upright to 90 degrees, single sips/bites via tsp or straw, slow rate, ensure patient swallows before next sip/bite, oral care after PO intake with suctioning as needed, reflux precautions
4. Oral care 3x daily
5. FORESTRY FARM LABORER service to follow up at the acute care level to assess diet level tolerance and provide dysphagia tx as needed
--- NOTE | 2024-04-08 10:13 | PTCARENOTE ---
Pt seen by speech this afternoon. roughly 30 minutes after pt begame grunting and was agitated within the room. Pt nonverbal at baseline and unable to communicate discomfort. VS taken. initial BP in AM was 111/62 prior to 15mg Midodrine
administration. during assessment pt 75/36 BP and pulse ox sitting in 84-86 on 4L. made aware and rapid called. pt sent up to ICU 3368. mother at bedside. See Rapid Response Report for proper documentation
[2024-04-08 10:28] LABS: Glucose - Point of Care 112 mg/dl (70-99)
--- NOTE | 2024-04-08 10:50 | W.PN.HOSP.TC ---
Today's Communication/Plan
-
-Hypotension and worsening hypoxia today --> transferred to ICU
-Appreciate diamond sizer and grader's assistance and evaluation
-Continue high flow oxygen
-Keep strict NPO
-Aspiration precautions with HOB >30-45 degrees
-As per diamond sizer and grader, ff sudden SOB occurs and is found to be from proximal airway atelectasis with plugging vs aspiration, then patient will need bronchoscopy and she is at high risk of intubation in that scenario
Assessment / Plan
Assessment / Plan
Physical Exam
General: Mild distress
HEENT: Normocephalic
Respiratory: Rhonchi
Cardiac: S1/S2 and Regular Rhythm
GI: Soft, Non Tender and Normal Bowel Sounds
Musculoskeletal: No Cyanosis
Skin: Warm and Dry
Neuro: Other (Sleeping)
Psych: Calm
Assessment/Plan
HPI: 48-year-old with past medical history for seizure, cerebral palsy presented with shortness of breath. She was noted to be lethargic and jittery. History obtained primarily from family. Patient lives with her parents. She was noted to have
seizure activity with fever at home.
Patient was hypoxic on her usual 1 L of home oxygen. Patient received fluids and Zosyn in ER. Admitted for further management .
#Rapid response on 04/08/24 for worsening hypoxia and hypotension
#Hypotension
-Ordered CXR, labs
-IV fluids bolus
-Patient evaluated and transferred to ICU due to elevated risk of airway compromise
-Consulted diamond sizer and grader, recommendations appreciated
-High flow nasal cannula and titrate FiO2 and flow rate to maintain SpO2 >90-94%
#Sepsis
#Fever
#Acute on chronic respiratory failure with hypoxia due to suspected bilateral pneumonia with aspiration
-High flow nasal cannula and titrate FiO2 and flow rate to maintain SpO2 >90-94%
-Status post Zosyn in the ER
-Due to STEVE, continue Cefepime and Flagyl
-Follow cultures
-Continue IV fluids
-Keep strict NPO for now
-Aspiration precautions with HOB >30-45 degrees
#Chronic dysphagia
# History for esophageal web
-She is usually on a pur�ed diet with nectar thickened liquids
-Strict NPO at this time
#Hypernatremia
-From dehydration
-Received 2 liter NSS bolus in the ER
-Continue IV fluids
-Check repeat labs
#Acute Kidney Injury
-Suspected prerenal; poor PO intake reported at home
-Continue IV fluids
#Acute Hypercalcemia
-Suspected from dehydration -- poor PO intake reported at home
-Continue IV fluids
#Mild transaminitis from infection
-Possibly from infection/sepsis -- trend LFTs
#Acute on chronic hypotension
-Continue midodrine 15 mg 3 times daily with parameters
#Cerebral Palsy
#Seizure Disorder
- Stable.
- Appreciate diamond sizer and grader assistance with replacing seizure medications: Hold onfi, Trileptal, tiagabin due to the need to convert to intravenous: instead of Onfi 10mg BID, use Diazepam 5mg IV q12hr, and instead of Trileptal use lacosamide 150mg IV
q12hr, and instead of Toagabine 4mg HS use Keppra 500mg IV q12hr - this was all confirmed with neurology (Dr. Garcia)
#History of Ovarian Cancer
- S/p surgery and then hormonal therapy.
- Has completed treatment x 5 years.
- Remains on letrozole at family preference.
#Functional quadriplegia due to cerebral palsy
- Dependent on family for all care
#DVT Prophylaxis: Heparin Subq
#Code Status: Full
Worsening hypoxia and hypotension requiring more oxygen and change to strict NPO and transfer to ICU is a high-risk encounter.
Anticipated Discharge: > 48 hours
Subjective/Interval History
-
Date of Service: April 08, 2024
Patient was seen and examined. Earlier in the morning she appeared to be doing better but later in the morning, she became more hypoxic and also hypotensive. Rapid response was called.
Objective Data
-
Labs:
Laboratory Results
04/08/24 04/08/24 04/08/24
01:27 04:32 10:29
WBC 6.2 Pending
Hgb 10.9 L Pending
Hct 33.9 L Pending
Plt Count 163 D Pending
Sodium 146 H 144 Pending
Potassium 4.5 4.2 Pending
Chloride 112 H 112 H Pending
Carbon Dioxide 28 27 Pending
BUN 40 H 40 H Pending
Creatinine 1.3 H 1.2 H Pending
Glucose 121 H 107 H Pending
Calcium 10.8 H D 10.5 H Pending
Total Bilirubin 0.5 Pending
AST 113 H Pending
ALT 123 H Pending
Alkaline Phosphatase 189 H Pending
Vital Signs:
Vital Signs
Temp Pulse Resp BP Pulse Ox
98.5 F 75 20 111/62 96
04/08/24 07:40 04/08/24 07:40 04/08/24 07:40 04/08/24 08:53 04/08/24 07:40
I&O
04/07/24 04/08/24 04/09/24
06:59 06:59 06:59
Intake Total 725 / 725
Balance 725 / 725
[2024-04-08 10:55] LABS: % Basophils 0.7 % (0-2); % Eosinophils 1.6 % (0-6); % Immature Granulocytes 0.3 % (0-0.5); % Lymphocytes 12.6 % (20.5-51.1); % Monocytes 10.8 % (1.7-9.3); Absolute Eosinophils 0.1 10^3/uL (0-0.7); Absolute Lymphocytes 0.8 10^3/uL (1.2-3.4); Absolute Monocytes 0.7 10^3/uL (0.1-0.6); Absolute Neutrophils 4.5 10^3/uL (1.4-6.5); Hematocrit 33.9 % (37.0-47.0); Hemoglobin 10.9 g/dL (12.0-16.0); Mean Corp Hgb Conc. 32.2 g/dL (33.0-37.0); Mean Corpuscular Volume 90.2 fL (81.0-99.0); Mean Platelet Volume 11.4 fL (7.4-10.4); Nucleated Red Blood Cells % 0 %; Platelet Count 189 10^3/uL (130-400); Red Blood Cell Count 3.76 10^6/uL (4.20-5.40); Red Cell Dist. Width 14.3 % (11.5-14.5); White Blood Cell Count 6.1 10^3/uL (4.8-10.8)
--- NOTE | 2024-04-08 11:01 | CON.INTV ---
Consultation
Consultation Request
Date/Time Consultation Requested: 04/08/2024 - 1033
Date/Time Consultation Performed: 04/08/2024 - 1103
Requesting Provider: Dr. Doe
Performing Provider: Dr. Pettit
Reason for Consultation: Hypoxia/Hypotensive
Medical History
-
Chief Complaint: SOB
History of Present Illness:
48-year-old female with a past medical history of intractable epilepsy with recent hospitalization from 03/2304/03/2024 due to sepsis from suspected aspiration pneumonia, with GI consulted due to history of esophageal webs however due to anesthesia
risk no endoscopy was performed. Patient discharged to home with home care on 04/03 on Augmentin for an additional 3 days. She now presents with low pulse ox. She is chronically on 1 L/min. Apparently patient had twitching that started today. In
triage she was febrile to 102.8 �F, heart rate 69, BP 158/132, she was saturating 96% on 4 L/min. Labs showed normal WBC at 8.2, sodium 146, STEVE with creatinine 1.5, lactate 2.9, calcium 12.8, elevated LFTs with ALP 269, AST 150, 80 LT 140,
urinalysis showing 16�20 urine WBC with negative nitrite and trace LE, and urine culture was collected as well as blood culture. CXR showed bilateral infiltrate/opacities, but it was improved compared to recent CXR from 03/29/2024. In the ER she
was given Tylenol, Zosyn and IV fluids with NS 0.9% x2L. She was admitted to the hospitalist service on 4 L/min, and was continued on antibiotics with cefepime/flagyl. On the morning of 04/08, her oxygen requirements increased with respiratory
distress and hypotension. She was transferred to the ICU for further care and critical care services consulted for additional management/recommendations.
When I saw the patient she was in bed, her mother was at bedside, Tanisha. Patient has been coughing with more shortness of breath prior to arrival. She had just had breakfast prior to her symptoms beginning, as per the mother. Difficult to tell the
temporal relation between her eating and when her symptoms began. Currently patient is saturating 85% on nasal cannula at 12 L/min. Patient has cerebral palsy hence HPI is obtained strictly from the mother and from reviewing charts.
PMHx: Epilepsy, cerebral palsy, chronic dysphagia, history of esophageal webs, chronic hypotension on midodrine, history of ovarian cancer s/p LUCERO/BSO, functional quadriplegia, recurrent UTIs, history of aspiration pneumonia
PSHx: LUCERO/BSO, appendectomy, vagus nerve stimulator implant
Past Medical History
Past Medical History: Other (Above as per HPI)
Past Surgical History: Other (Above as per HPI)
Social History
Tobacco: Non-smoker
Alcohol: None
Drug: None
Family History
Family History: Reviewed & Not Pertinent
Allergies / Home Medications
Allergies
Allergy/AdvReac Type Severity Reaction Status Date / Time
brompheniramine Allergy hyper Verified 04/07/24 16:05
[From Dimetapp Cold-Allergy
(PE)]
chloral hydrate Allergy hyper Verified 04/07/24 16:05
diphenhydramine Allergy hyper Verified 04/07/24 16:05
[From Benadryl]
latex Allergy Swelling Verified 04/07/24 16:05
phenobarbital Allergy hyper Verified 04/07/24 16:05
phenylephrine Allergy hyper Verified 04/07/24 16:05
[From Dimetapp Cold-Allergy
(PE)]
phenytoin [From Dilantin] Allergy Rash Verified 04/07/24 16:05
Sulfa (Sulfonamide Allergy Hives Verified 04/07/24 16:05
Antibiotics)
topiramate [From Topamax] Allergy Rash Verified 04/07/24 16:05
Home Medications
�Medication �Instructions �Recorded �Confirmed �Last Taken �Type
Lactobac no.2-Bifidobac no.1-S. 1 cap PO DAILY Gastrointestinal 03/17/24 04/07/24 1 Day Ago History
thermo 112.5 billion cell capsule Issue ~04/06/24
(Visbiome)
ascorbic acid (vitamin C) 500 mg 500 mg PO DAILY Supplement 03/17/24 04/07/24 1 Day Ago History
tablet (Vitamin C) ~04/06/24
cetirizine 10 mg tablet (Zyrtec) 10 mg PO DAILY PRN allergies 03/17/24 04/07/24 1 Day Ago History
~04/06/24
clobazam 10 mg tablet (Onfi) 10 mg PO BID Seizures 03/17/24 04/07/24 1 Day Ago History
~04/06/24
docusate sodium 50 mg/5 mL oral 100 mg PO BIDPRN PRN constipation 03/17/24 04/07/24 03/17/24 History
liquid
fluticasone propionate 50 2 spray intranasal DAILY Allergies 03/17/24 04/07/24 03/23/24 History
mcg/actuation nasal
spray,suspension
letrozole 2.5 mg tablet 2.5 mg PO HS Hormonal Agent 03/17/24 04/07/24 1 Day Ago History
~04/06/24
montelukast 10 mg tablet 10 mg PO HS Allergies 03/17/24 04/07/24 2 Days Ago History
(Singulair) ~04/05/24
oxcarbazepine 600 mg tablet 600 mg PO BID Seizures 03/17/24 04/07/24 1 Day Ago History
(Trileptal) ~04/06/24
polyethylene glycol 3350 17 gram 17 g PO DAILY PRN constipation 03/17/24 04/07/24 1 Day Ago History
oral powder packet (Miralax) ~04/06/24
sennosides 8.8 mg/5 mL oral syrup 17.6 mg PO HSPRN PRN constipation 03/17/24 04/07/24 03/16/24 History
(senna)
tiagabine 4 mg tablet 4 mg PO HS Seizures 03/17/24 04/07/24 1 Day Ago History
~04/06/24
acetaminophen 500 mg tablet 1,000 mg PO Q6H PRN mild pain 03/23/24 04/07/24 03/23/24 History
(Tylenol Extra Strength)
midodrine 5 mg tablet 15 mg PO BID Blood Pressure 03/23/24 04/07/24 1 Day Ago History
~04/06/24
amoxicillin 250 mg-potassium 10 ml PO Q12 #75 mL 04/03/24 04/07/24 Unknown Rx
clavulanate 62.5 mg/5 mL oral
suspension
Review of Systems
-
Unable to Obtain full review of systems at this time due to: Patient Non Verbal
Vitals / Labs / Diagnostic Testing
Vital Signs
Temp Pulse Resp BP Pulse Ox
99.2 F 76 26 136/78 93
04/08/24 19:25 04/08/24 19:44 04/08/24 19:44 04/08/24 18:15 04/08/24 19:44
Lab Data
04/08/24 10:29
04/08/24 10:29
Laboratory Results
04/08/24
11:58
pH 7.37
pCO2 41 H
pO2 65 L
HCO3 23.7
O2 Delivery Level
Microbiology
04/07/24 17:06 Blood/Venous Blood Culture - Preliminary
No Growth in 24 hours- Final report to follow
04/07/24 16:13 Blood/Venous Blood Culture - Preliminary
No Growth in 24 hours- Final report to follow
04/07/24 15:57 Urine Urine Culture - Preliminary
Yoly albicans
04/07/24 16:18 Nasal Swab Influenza Types A & B (SAMARA) - Final
Negative for Influenza A & B, NAAT
Negative results must be combined with clinical observations
and patient history.
Nucleic Acid Amplification test (NAAT)performed on the
[employer] platform.
Diagnostic Testing:
Physical Exam
-
HEENT: Normocephalic and Anicteric
Cardiovascular: S1/S2 and Peripheral Edema (Negative)
Respiratory: Wheeze (Negative), Rales (Bilateral), Rhonchi (Negative) and Accessory Resp Muscle Use (mild)
GI: Soft, Non Distended and Non Tender
Neurology: Awake and Tremors (Negative)
Skin: Warm and Dry
General: Sweats (Negative)
Assessment
-
Assessment: 48-year-old female with a past medical history of intractable epilepsy with recent hospitalization from 03/2304/03/2024 due to sepsis from suspected aspiration pneumonia, with GI consulted due to history of esophageal webs however due
to anesthesia risk no endoscopy was performed. Patient discharged to home with home care on 04/03 on Augmentin for an additional 3 days. She now presents with low pulse ox. She is chronically on 1 L/min. Apparently patient had twitching that
started today. In triage she was febrile to 102.8 �F, heart rate 69, BP 158/132, she was saturating 96% on 4 L/min. Labs showed normal WBC at 8.2, sodium 146, STEVE with creatinine 1.5, lactate 2.9, calcium 12.8, elevated LFTs with ALP 269, AST 150,
80 LT 140, urinalysis showing 16�20 urine WBC with negative nitrite and trace LE, and urine culture was collected as well as blood culture. CXR showed bilateral infiltrate/opacities, but it was improved compared to recent CXR from 03/29/2024. In
the ER she was given Tylenol, Zosyn and IV fluids with NS 0.9% x2L. She was admitted to the hospitalist service on 4 L/min, and was continued on antibiotics with cefepime/flagyl. On the morning of 04/08, her oxygen requirements increased with
respiratory distress and hypotension. She was transferred to the ICU for further care and critical care services consulted for additional management/recommendations.
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
Impression:
#Acute on chronic respiratory failure with hypoxia due to suspected bilateral pneumonia with aspiration
#Febrile illness due to sepsis (without shock)
#Hypotension - due to sepsis however her BP improved with NS bolus x2 and she never required vasopressors
#Acute kidney injury with baseline creatinine of approximately 0.6
#Epilepsy on multiple AEDs
#Chronic dysphagia with Hx of esophageal webs
#Hx of recurrent UTI
#Chronic hypotension on midodrine
Plan:
- Start high flow nasal cannula and titrate FiO2 and flow rate to maintain SpO2 >90-94%
- Continue broad spectrum Abx with cefepime and flagyl
- Follow up blood CX and urine Cx (UCx growing C. albicans - likely a contaminant)
- Check a sputum Cx and legionella/Strep PNA urine antigens
- We tried nasotracheal suctioning the pt once she came to the ICU - there was no secretions that we were able to effectively suction up, plus the CXR does not show any proximal airway atelectasis, so not sure how effective mucolytics or
NT-suctioning will be.
- Given her risk of aspiration, keep strict NPO and re-assess daily
- Aspiration precautions with HOB >30-45 degrees
- If sudden SOB occurs and is found to be from proximal airway atelectasis with plugging vs aspiration, then will need to bronch her and she is at high risk of intubation in that scenario
- prn nebulized bronchodilators
- Regarding her AEDs, need to convert to IV - instead of Onfi 10mg BID, I will use Diazepam 5mg IV q12hr, and instead of Trileptal will use lacosamide 150mg IV q12hr, and instead of Toagabine 4mg HS I will use Keppra 500mg IV q12hr - this was all
confirmed with neurology (Dr. Garcia)
- Neurochecks as needed
- Shortly after she arrived to ICU, I ordered her another 1L bolus of NS 0.9%; low threshold to start levophed
- Maintain MAP>65
- Replete electrolytes with K>4, Mg>2
- Maintain euglycemia with goal BG 140-180
- DVT ppx
GOC discussion: I discussed with the patient's mother, Tanisha, that if her breathing were to get worse would they want us to put her onto a ventilator. Her mother said yes. It would be on clear how easy it would be to get her off the ventilator if
she progressed that far, but the family wants to do everything they can to keep her alive if it comes to that. I answered all of her mother's questions.
Critical care statement: A total of 40 minutes of critical care time was provided for this patient today. This includes management of unstable vital signs, evaluation of the patient at bedside, reviewing the patient's pertinent medical records
including radiographs, microbiology, laboratory evaluations, and discussion with primary team, consultants, pharmacy, nutrition, physical therapy, case management, charge nurse, critical care nursing, and respiratory therapy.
Data:
CXR 04-08-2024: Worsening bilateral pneumonitis/pneumonia.
[2024-04-08 11:11] LABS: ALT (SGPT) 122 U/L (0-35); AST (SGOT) 123 U/L (14-36); Albumin 2.9 g/dl (3.5-5.0); Alkaline Phosphatase 181 U/L (38-126); Blood Urea Nitrogen 40 mg/dl (7-17); Calcium 10.3 mg/dl (8.4-10.2); Carbon Dioxide 26 mmol/L (22-30); Chloride 112 mmol/L (98-107); Estimated Creatinine Clearance 48 ml/min; Glucose 112 mg/dl (70-99); Magnesium 1.7 mg/dl (1.6-2.3); Potassium 4.1 mmol/L (3.5-5.1); Sodium 143 mmol/L (135-145); Total Bilirubin 0.5 mg/dl (0.2-1.3); Total Protein 5.9 g/dl (6.3-8.2); eGFR > 60.00
[2024-04-08 11:13] LABS: Lactic Acid 1.3 mmol/L (0.7-2.0)
[2024-04-08 11:22] LABS: NT-proBNP 854 pg/ml; Troponin I < 0.012 ng/ml
--- NOTE | 2024-04-08 12:00 | PTCARENOTE ---
Received pt s/p rapid response into ICU rm [id number] for suspected aspiration episode after being seen by DATABASES COMPUTER CONSULTANT. Hypoxic/hypotensive @ RR. SpO2 88-93% on 15LMF s/p transfer. NSS bolus infusing-see JAN. SBP's improved to 90-100's. CXR taken prior to
transfer. Awaiting lab results from [facility]. Pt.'s parent @ bedside, updated on plan of care.
[2024-04-08 12:06] LABS: B.E. -1.5 mmol/L; HCO3 23.7 mmol/L (21-28); O2 Saturation % 94.1 % (94-98); PCO2 41 mmHg (32-35); PO2 65 mmHg (83-108); pH 7.37 (7.35-7.45)
[2024-04-08] MEDS: DUONEB 3 ML INH ×2 (13:04→19:40)
--- NOTE | 2024-04-08 13:15 | PTCARENOTE ---
SpO2 dropping into low 80's on 15lMF. CXR and ABG results reviewed by direct marketing coordinator, Dr. Pettit. Further orders received. Attempted to deep suction, unsuccessful. RT switched pt over to HFNC 55L/80% @ 1300 and SpO2 improved to 99%. Parents @
bedside inquired about feeding, informed unable to place nasogastric tube @ this time due to O2 needs. Strict NPO status maintained. Complete mouth care provided. Safe environment maintained.
[2024-04-08] MEDS: NSS 1000 IV (14:45)
[2024-04-08] MEDS: ProAmatine PO ×2 (17:49→17:55)
[2024-04-08] MEDS: ONFI PO (20:56)
[2024-04-08] MEDS: TRILEPTAL PO (20:56)
[2024-04-08] MEDS: VIMPAT 150 MG IV (21:27)
[2024-04-08] MEDS: KEPPRA 500 MG IV (21:29)
[2024-04-08] MEDS: VALIUM INJECTION 5 MG IV (21:30)
[2024-04-08 22:17] LABS: Troponin I < 0.012 ng/ml
--- NOTE | 2024-04-08 22:37 | PTCARENOTE ---
Pt received at 19:00, father at bedside. Per father, pt neurologically at baseline. Oriented x0. Moans/groans. Pt [id number]. DPs weak, but palpable. B/L ankle +1 edema. HFNC 55L/90%. Moist cough, no sputum noted. +BS, x1 loose BM. PW previously in
place, removed after loose BM. Incontinent and uses brief at baseline. Skin intact. LUE midline in place, +BR. Safe environment maintained, father remains at bedside.
[2024-04-08] MEDS: OFIRMEV 100 IV (23:27)
[2024-04-09] VITALS (23 sets, daily range): BP systolic 89–147; BP diastolic 50–83; BMI 27.4
[2024-04-09] MEDS: FLAGYL 500 MG 100 IV ×3 (03:53→20:25)
[2024-04-09 04:55] LABS: % Basophils 0.4 % (0-2); % Eosinophils 4.1 % (0-6); % Immature Granulocytes 0.6 % (0-0.5); % Lymphocytes 17.7 % (20.5-51.1); % Monocytes 13.7 % (1.7-9.3); % Neutrophils 63.5 % (42.2-75.2); Absolute Eosinophils 0.2 10^3/uL (0-0.7); Absolute Lymphocytes 0.9 10^3/uL (1.2-3.4); Absolute Monocytes 0.7 10^3/uL (0.1-0.6); Absolute Neutrophils 3.4 10^3/uL (1.4-6.5); Hematocrit 29.8 % (37.0-47.0); Hemoglobin 9.9 g/dL (12.0-16.0); Mean Corp Hgb Conc. 33.2 g/dL (33.0-37.0); Mean Corpuscular Hgb 29.9 pg (27.0-31.0); Mean Platelet Volume 12.2 fL (7.4-10.4); Nucleated Red Blood Cells % 0 %; Platelet Count 130 10^3/uL (130-400); Red Blood Cell Count 3.31 10^6/uL (4.20-5.40); Red Cell Dist. Width 13.7 % (11.5-14.5); White Blood Cell Count 5.3 10^3/uL (4.8-10.8)
[2024-04-09 05:20] LABS: ALT (SGPT) 96 U/L (0-35); AST (SGOT) 121 U/L (14-36); Albumin 2.5 g/dl (3.5-5.0); Alkaline Phosphatase 155 U/L (38-126); Blood Urea Nitrogen 28 mg/dl (7-17); Calcium 9.4 mg/dl (8.4-10.2); Carbon Dioxide 27 mmol/L (22-30); Chloride 108 mmol/L (98-107); Estimated Creatinine Clearance 67 ml/min; Glucose 83 mg/dl (70-99); Magnesium 1.5 mg/dl (1.6-2.3); Potassium 3.8 mmol/L (3.5-5.1); Sodium 139 mmol/L (135-145); Total Bilirubin 0.3 mg/dl (0.2-1.3); Total Protein 5.4 g/dl (6.3-8.2); eGFR > 60.00
[2024-04-09 05:21] LABS: Troponin I < 0.012 ng/ml
[2024-04-09] MEDS: VITAMIN C PO (07:34)
[2024-04-09] MEDS: HEPARIN 5000 UNITS SC ×2 (07:52→15:26)
[2024-04-09] MEDS: KEPPRA 500 MG IV ×2 (07:52→20:25)
[2024-04-09] MEDS: VALIUM INJECTION 5 MG IV ×2 (07:53→20:24)
[2024-04-09] MEDS: VIMPAT 150 MG IV ×2 (07:53→20:25)
--- NOTE | 2024-04-09 08:21 | W.PN.UPDATE ---
Update Note
Progress Note Update
Discussed with Dr Pettit as detailed in his note, replace the home regimen of Clobazam/Onfi, Trileptal/Oxcarbazepine, and Tiagabine with
Diazepam 5 mg q12hr IV
Lacosamide 150 mg 12hr IV
Levetiracetam 500 mg q12hr IV
Treating aspiration pneumonia and weaning oxygen as able, would recommend NG tube for resumption of her home seizure medications when feasible
--- NOTE | 2024-04-09 08:30 | PTCARENOTE ---
Received pt @ change of shift. Hx CP, nonverbal/moans out @ x's @ baseline. SB-SR on monitor. SpO2 95%, RT weaned HFNC @ 0800 to 50L/65%, tolerating wean thus far. Strict NPO maintained to prevent further asp episodes. Occ P cough w thick/yellow
sputum. Frequent mouth care provided. Auscultated coarse breath sounds throughout w scattered crackles. +BS, abd soft/round. Inc b/b. Completed dale care provided and pt repositioned per protocol. L midline patent, dressing c/d/i. Pt.'s father
remains @ bedside, updated on plan of care.
--- NOTE | 2024-04-09 09:05 | W.PN.INTV ---
Addendum entered and electronically signed by Isiah Pettit MD 04/09/24 16:30:
Regarding GI consult, given her high O2 requirements, will hold off until her hypoxia improves. Will then get GI consultation at that time as there is high risk for intubation if EGD were to be performed at this time.
Original Note:
Today's Communication / Plan
Recommendations
Trial of diuresis
Continue HFNC and titrate FiO2 to keep SpO2 >90-94%
Aspiration precautions
Start solu-cortef 50mg q6hr
Trend CXR and low threshold to intubate as she may be developing ARDS
check TTE
Continue Abx
GI consult given her recent suspicion for esophageal webs, and this could be contributing to her aspiration - may benefit from an EGD when more stable
Assessment
-
Assessment: 48-year-old female with a past medical history of intractable epilepsy with recent hospitalization from 03/2304/03/2024 due to sepsis from suspected aspiration pneumonia, with GI consulted due to history of esophageal webs however due
to anesthesia risk no endoscopy was performed. Patient discharged to home with home care on 04/03 on Augmentin for an additional 3 days. She now presents with low pulse ox. She is chronically on 1 L/min. Apparently patient had twitching that
started today. In triage she was febrile to 102.8 �F, heart rate 69, BP 158/132, she was saturating 96% on 4 L/min. Labs showed normal WBC at 8.2, sodium 146, STEVE with creatinine 1.5, lactate 2.9, calcium 12.8, elevated LFTs with ALP 269, AST 150,
80 LT 140, urinalysis showing 16�20 urine WBC with negative nitrite and trace LE, and urine culture was collected as well as blood culture. CXR showed bilateral infiltrate/opacities, but it was improved compared to recent CXR from 03/29/2024. In
the ER she was given Tylenol, Zosyn and IV fluids with NS 0.9% x2L. She was admitted to the hospitalist service on 4 L/min, and was continued on antibiotics with cefepime/flagyl. On the morning of 04/08, her oxygen requirements increased with
respiratory distress and hypotension. She was transferred to the ICU for further care and critical care services consulted for additional management/recommendations.
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
Impression:
#Acute on chronic respiratory failure with hypoxia due to suspected bilateral pneumonia with aspiration - worsening CXR today concerning for developing ARDS vs acute CHF
#Febrile illness due to sepsis (without shock)
#Hypotension - due to sepsis however her BP improved with NS bolus x2 and she never required vasopressors
#Acute kidney injury with baseline creatinine of approximately 0.6
#Epilepsy on multiple AEDs
#Chronic dysphagia with Hx of esophageal webs
#Hx of recurrent UTI
#Chronic hypotension on midodrine
Plan:
- CXR worsening today with severe progressed bilateral opacities --> could be developing ARDS; has high risk of getting intubated
- Keep on high flow nasal cannula and titrate FiO2 and flow rate to maintain SpO2 >90-94% --> if she does get weaned down to midflow then we can place dobhoff tube for PO access and nutrition; unable to do that today given her worsening CXR
- Trial of diuresis today; keep K>4, Mg>2
- Start hydrocortisone 50mg IV q6hr given her severe CAP
- Check echo; trend BNP
- Continue broad spectrum Abx with cefepime and flagyl
- Follow up blood Cx and urine Cx (UCx growing C. albicans - likely a contaminant)
- Check a sputum Cx; Legionella/Strep PNA urine antigens are both negative
- We tried nasotracheal suctioning the pt once she came to the ICU - there was no secretions that we were able to effectively suction up, plus the CXR does not show any proximal airway atelectasis, so not sure how effective mucolytics or
NT-suctioning will be.
- Given her risk of aspiration, keep strict NPO and re-assess daily
- Aspiration precautions with HOB >30-45 degrees
- If sudden SOB occurs and is found to be from proximal airway atelectasis with plugging vs aspiration, then will need to bronch her and she is at high risk of intubation in that scenario
- prn nebulized bronchodilators
- Regarding her AEDs, need to convert to IV - instead of Onfi 10mg BID, I will use Diazepam 5mg IV q12hr, and instead of Trileptal will use lacosamide 150mg IV q12hr, and instead of Toagabine 4mg HS I will use Keppra 500mg IV q12hr - this was all
confirmed with neurology (Dr. Garcia)
- Neurochecks as needed
- Shortly after she arrived to ICU, I ordered her another 1L bolus of NS 0.9%; low threshold to start levophed
- Maintain MAP>65
- Maintain euglycemia with goal BG 140-180
- DVT ppx
GOC discussion: I discussed with the patient's mother, Tanisha, that if her breathing were to get worse would they want us to put her onto a ventilator. Her mother said yes. It would be on clear how easy it would be to get her off the ventilator if
she progressed that far, but the family wants to do everything they can to keep her alive if it comes to that. I answered all of her mother's questions.
Critical care statement: A total of 46 minutes of critical care time was provided for this patient today. This includes management of unstable vital signs, evaluation of the patient at bedside, reviewing the patient's pertinent medical records
including radiographs, microbiology, laboratory evaluations, and discussion with primary team, consultants, pharmacy, nutrition, physical therapy, case management, charge nurse, critical care nursing, and respiratory therapy.
Data:
CXR 04-09-2024: Severe diffuse bilateral airspace disease, progressed and likely reflects pneumonia. Developing ARDS
not excluded.
CXR 04-08-2024: Worsening bilateral pneumonitis/pneumonia.
Subjective Dataa
Subjective Data
Date of Service:
Date of Service: April 09, 2024
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
Subjective:
Patient seen today at bedside. Family members at bedside including father and mother. Currently she is saturating 98% on high flow nasal cannula FiO2 50%. Heart rate 78 and BP 118/65. She frequently sneezes/coughs and this causes her to
desaturate. Febrile overnight to 101.4 �F.
Review of Systems
General: Other (Unable to obtain due to patient's clinical status/nonverbal)
Objective Data
Data Reviewed
Vital Signs / I&O / Oxygen:
Vital Signs
Temp Pulse Resp BP Pulse Ox
98.2 F 75 29 109/65 95
04/09/24 11:01 04/09/24 06:15 04/09/24 06:15 04/09/24 06:00 04/09/24 11:41
Intake and Output
04/08/24 04/09/24 04/10/24
06:59 06:59 06:59
Intake Total 725 / 725 800 / 800 100 / 100
Balance 725 / 725 800 / 800 100 / 100
SaO2 95
Nasal Cannula flow liters per 50
minute
Physical Exam
General: Respiratory Distress (mild) and Chills (negative)
HEENT: Normocephalic and Anicteric
Cardiovascular: S1-S2, Murmur (negative) and Peripheral Edema (negative)
Respiratory: Wheeze (negative) and Crackles (bilaterally (L predominantly))
GI: Soft, Non Distended and Non Tender
Neurology: Awake
Skin: Warm, Dry and Jaundice (negative)
Labs/Micro/Reports
Lab Data
04/09/24 04:37
04/09/24 04:37
Laboratory Results
04/08/24
11:58
pH 7.37
pCO2 41 H
pO2 65 L
HCO3 23.7
O2 Delivery Level
Microbiology
04/07/24 15:57 Urine Urine Culture - Final
Yoly albicans
04/09/24 00:35 Urine Legionella Urinary Antigen - Final
Negative for Legionella pneumophila Serogroup 1 antigen.
A negative result does not rule out the possiblity of
Legionella infection due to other serogroups or species of
Legionella. Clinical correlation is recommended.
04/09/24 00:35 Urine Streptococcus pneumoniae Antigen (M - Final
Negative for Streptococcus pneumoniae antigen.
A negative result does not exclude infection with
Streptococcus pneumoniae. Clinical correlation is
recommended.
04/07/24 17:06 Blood/Venous Blood Culture - Preliminary
No Growth in 24 hours- Final report to follow
04/07/24 16:13 Blood/Venous Blood Culture - Preliminary
No Growth in 24 hours- Final report to follow
04/07/24 16:18 Nasal Swab Influenza Types A & B (SAMARA) - Final
Negative for Influenza A & B, NAAT
Negative results must be combined with clinical observations
and patient history.
Nucleic Acid Amplification test (NAAT)performed on the
[employer] platform.
[2024-04-09] MEDS: STERILE WATER FOR INJECTION 10 ML IV ×2 (09:50→21:56)
[2024-04-09] MEDS: MAXIPIME 2000 MG IV ×2 (09:51→21:56)
--- NOTE | 2024-04-09 12:40 | PTCARENOTE ---
RT attempted to wean HFNC to 45L/45%, SpO2 dropped into mid 80's. HFNC settings increased to 50L/50% by R and SPO2 recovered/maintained 93-94%. No s/s of resp distress. Mouth care provided. Repositioned per protocol. Family remains @ bedside.
[2024-04-09] MEDS: MAGNESIUM SULFATE 102 GRAMS IV (12:54)
[2024-04-09] MEDS: D5/0.9% SODIUM CHLORIDE 500 IV (14:04)
[2024-04-09] MEDS: SOLU-CORTEF 50 MG IV (17:20)
[2024-04-09] MEDS: LASIX 40 MG IV (17:20)
--- NOTE | 2024-04-09 20:00 | PTCARENOTE ---
Rec'd pt resting in bed, mother at bedside, pt nonverbal, does not follow commands, SR, bp stable, weak distal pulses, skin warm/dry, O2 via hi flow 50%, 50 liters, sat 99. lungs coarse, scat crackles, tachypneic, hypo bowel sounds, no bm, abd
rounds, soft, no vomiting, NPO, inc yellow urine- attends changed, barrier ointment applied
[2024-04-10] VITALS (24 sets, daily range): BP systolic 89–146; BP diastolic 55–81; BMI 26.6
--- NOTE | 2024-04-10 | PTCARENOTE ---
sys reviewed, changes noted, CHG bath done, linens changed
[2024-04-10] MEDS: HEPARIN 5000 UNITS SC ×4 (00:10→23:08)
[2024-04-10] MEDS: SOLU-CORTEF 50 MG IV ×5 (00:24→23:08)
[2024-04-10] MEDS: FLAGYL 500 MG 100 IV ×3 (03:07→19:08)
[2024-04-10 03:23] LABS: % Eosinophils 0.2 % (0-6); % Immature Granulocytes 0.5 % (0-0.5); % Monocytes 8.1 % (1.7-9.3); % Neutrophils 73.2 % (42.2-75.2); Absolute Lymphocytes 0.7 10^3/uL (1.2-3.4); Absolute Monocytes 0.3 10^3/uL (0.1-0.6); Hematocrit 31.1 % (37.0-47.0); Hemoglobin 10.7 g/dL (12.0-16.0); Mean Corp Hgb Conc. 34.4 g/dL (33.0-37.0); Mean Corpuscular Hgb 29.7 pg (27.0-31.0); Mean Corpuscular Volume 86.4 fL (81.0-99.0); Mean Platelet Volume 11.7 fL (7.4-10.4); Nucleated Red Blood Cells % 0 %; Platelet Count 152 10^3/uL (130-400); White Blood Cell Count 4.1 10^3/uL (4.8-10.8)
[2024-04-10 03:47] LABS: NT-proBNP 1250 pg/ml
--- NOTE | 2024-04-10 04:19 | PTCARENOTE ---
sys reviewed, has not slept tonight, restless, left mitt applied since pt pulling off O2,
[2024-04-10 04:22] LABS: ALT (SGPT) 86 U/L (0-35); AST (SGOT) 114 U/L (14-36); Alkaline Phosphatase 190 U/L (38-126); Blood Urea Nitrogen 28 mg/dl (7-17); Calcium 9.9 mg/dl (8.4-10.2); Carbon Dioxide 24 mmol/L (22-30); Chloride 102 mmol/L (98-107); Estimated Creatinine Clearance 67 ml/min; Glucose 117 mg/dl (70-99); Potassium 3.2 mmol/L (3.5-5.1); Sodium 137 mmol/L (135-145); Total Bilirubin 0.6 mg/dl (0.2-1.3); eGFR > 60.00
[2024-04-10] MEDS: KCL 270 MEQ IV (04:51)
--- NOTE | 2024-04-10 04:54 | PTCARENOTE ---
40 kcl/250 ml hung over 4 hr per order
--- NOTE | 2024-04-10 06:05 | PTCARENOTE ---
pt sleeping, mother does not want pt repos or changed at this time since pt finally sleeping
--- NOTE | 2024-04-10 08:55 | W.PN.INTV ---
Today's Communication / Plan
Recommendations
Trial of diuresis
Recheck CXR today - improved lung barkley with better aeration
Continue O2 and titrate FiO2 to keep SpO2 >90-94%
Aspiration precautions
Continue solu-cortef 50mg q6hr --> can wean down to 50mg q8hr tomorrow
check TTE
Continue Abx
GI consult when O2 requirements have stabilized for >24-48 hrs, as performing EGD during hypoxia will be more risk than benefit; ultimately she should obtain EGD given her recent suspicion for esophageal webs, and this could be contributing to her
aspiration
Patient has markedly improved, is now on mid flow nasal cannula and saturating well at 100% on 6 L/min.
Okay to transfer out of ICU to IMU, and pulmonary service will continue to follow along.
Assessment
-
Assessment: 48-year-old female with a past medical history of intractable epilepsy with recent hospitalization from 03/2304/03/2024 due to sepsis from suspected aspiration pneumonia, with GI consulted due to history of esophageal webs however due
to anesthesia risk no endoscopy was performed. Patient discharged to home with home care on 04/03 on Augmentin for an additional 3 days. She now presents with low pulse ox. She is chronically on 1 L/min. Apparently patient had twitching that
started today. In triage she was febrile to 102.8 �F, heart rate 69, BP 158/132, she was saturating 96% on 4 L/min. Labs showed normal WBC at 8.2, sodium 146, STEVE with creatinine 1.5, lactate 2.9, calcium 12.8, elevated LFTs with ALP 269, AST 150,
80 LT 140, urinalysis showing 16�20 urine WBC with negative nitrite and trace LE, and urine culture was collected as well as blood culture. CXR showed bilateral infiltrate/opacities, but it was improved compared to recent CXR from 03/29/2024. In
the ER she was given Tylenol, Zosyn and IV fluids with NS 0.9% x2L. She was admitted to the hospitalist service on 4 L/min, and was continued on antibiotics with cefepime/flagyl. On the morning of 04/08, her oxygen requirements increased with
respiratory distress and hypotension. She was transferred to the ICU for further care and critical care services consulted for additional management/recommendations.
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
Impression:
#Acute on chronic respiratory failure with hypoxia due to suspected bilateral pneumonia with aspiration - worsened CXR on 04/09, better today s/p diuresis - hence I believe this is due to acute CHF and not ARDS
#Febrile illness due to sepsis (without shock)
#Hypotension - due to sepsis however her BP improved with NS bolus x2 and she never required vasopressors - BP now improved
#Acute kidney injury with baseline creatinine of approximately 0.6
#Epilepsy on multiple AEDs
#Chronic dysphagia with Hx of esophageal webs
#Hx of recurrent UTI
#Chronic hypotension on midodrine
Plan:
- CXR worsening on 04/09 with severe progressed bilateral opacities --> likely due to acute CHF, her interstitial opacities improved s/p diuresis
- Give another dose of lasix today
- Wean down to mid flow and place Dobbhoff tube for PO access and nutrition; Maintain SpO2 >90-94%
- Keep K>4, Mg>2
- Continue hydrocortisone 50mg IV q6hr given her severe CAP --> can likely start weaning this tomorrow
- Check echo; trend BNP
- Continue broad spectrum Abx with cefepime and flagyl
- Follow up blood Cx and urine Cx (UCx growing C. albicans - likely a contaminant)
- Check sputum Cx; Legionella/Strep PNA urine antigens are both negative
- We tried nasotracheal suctioning the pt once she came to the ICU - there was no secretions that we were able to effectively suction up, plus the CXR does not show any proximal airway atelectasis, so not sure how effective mucolytics or
NT-suctioning will be.
- Given her risk of aspiration, keep strict NPO and re-assess daily
- Aspiration precautions with HOB >30-45 degrees
- If sudden SOB occurs and is found to be from proximal airway atelectasis with plugging vs aspiration, then will need to bronch her and she is at high risk of intubation in that scenario - believe she is out of this window for now as she continuing
to improve
- prn nebulized bronchodilators
- Regarding her AEDs, need to convert to IV - instead of Onfi 10mg BID, I will use Diazepam 5mg IV q12hr, and instead of Trileptal will use lacosamide 150mg IV q12hr, and instead of Toagabine 4mg HS I will use Keppra 500mg IV q12hr - this was all
confirmed with neurology (Dr. Garcia)
- Once DHT is inserted, can go back to her home PO meds and they can be resumed
- Would start trickle rate TF once DHT in as well, and advance rate slowly
- Neurochecks as needed
- Maintain MAP>65
- Maintain euglycemia with goal BG 140-180
- DVT ppx
GOC discussion: I discussed with the patient's mother, Tanisha, that if her breathing were to get worse would they want us to put her onto a ventilator. Her mother said yes. It would be on clear how easy it would be to get her off the ventilator if
she progressed that far, but the family wants to do everything they can to keep her alive if it comes to that. I answered all of her mother's questions.
Patient has markedly improved, is now on midflow nasal cannula and saturating well at 100% on 6 L/min. Okay to transfer out of ICU to IMU, and pulmonary service will continue to follow along.
Data:
CXR 04-10-2024: Improving bilateral pneumonia.
CXR 04-09-2024: Severe diffuse bilateral airspace disease, progressed and likely reflects pneumonia. Developing ARDS
not excluded.
CXR 04-08-2024: Worsening bilateral pneumonitis/pneumonia.
Total time spent today was 75 minutes for this encounter. Time includes reviewing laboratory test/imaging results, reviewing pertinent medical records, obtaining and reviewing medical history, performing an appropriate exam, ordering medications,
tests and procedures. Time also includes documentation of this encounter, coordinating patient care and communicating with other healthcare professionals. Total time does not include separately billed tests performed on this date of service.
Subjective Dataa
Subjective Data
Date of Service:
Date of Service: April 10, 2024
Chief Complaint: Soubrette Follow Up
Subjective:
Seen and evaluated today at bedside. Hypothermic this morning to 95.6 �F. Weaned down to mid flow this morning on 6 L/min with saturations of 99%. I answered all the father's questions.
Review of Systems
General: Other (Unable to obtain as patient is nonverbal)
Objective Data
Data Reviewed
Vital Signs / I&O / Oxygen:
Vital Signs
Temp Pulse Resp BP Pulse Ox
98.0 F 62 16 141/70 99
04/10/24 11:55 04/10/24 11:00 04/10/24 11:00 04/10/24 11:00 04/10/24 11:33
Intake and Output
04/09/24 04/10/24 04/11/24
06:59 06:59 06:59
Intake Total 800 / 800 807.5 / 807.5 195.0 / 195.0
Balance 800 / 800 807.5 / 807.5 195.0 / 195.0
SaO2 99
Nasal Cannula flow liters per 40
minute
Physical Exam
General: Respiratory Distress (mild) and Chills (negative)
HEENT: Normocephalic and Anicteric
Cardiovascular: S1-S2, Murmur (negative) and Peripheral Edema (negative)
Respiratory: Wheeze (negative) and Crackles (bilaterally (L predominantly))
GI: Soft, Non Distended and Non Tender
Neurology: Awake
Skin: Warm, Dry and Jaundice (negative)
Labs/Micro/Reports
Lab Data
04/10/24 03:13
04/10/24 03:13
Microbiology
04/07/24 17:06 Blood/Venous Blood Culture - Preliminary
No Growth in 48 hours- Final report to follow
04/07/24 16:13 Blood/Venous Blood Culture - Preliminary
No Growth in 48 hours- Final report to follow
04/07/24 15:57 Urine Urine Culture - Final
Yoly albicans
04/09/24 00:35 Urine Legionella Urinary Antigen - Final
Negative for Legionella pneumophila Serogroup 1 antigen.
A negative result does not rule out the possiblity of
Legionella infection due to other serogroups or species of
Legionella. Clinical correlation is recommended.
04/09/24 00:35 Urine Streptococcus pneumoniae Antigen (M - Final
Negative for Streptococcus pneumoniae antigen.
A negative result does not exclude infection with
Streptococcus pneumoniae. Clinical correlation is
recommended.
04/07/24 16:18 Nasal Swab Influenza Types A & B (SAMARA) - Final
Negative for Influenza A & B, NAAT
Negative results must be combined with clinical observations
and patient history.
Nucleic Acid Amplification test (NAAT)performed on the
[employer] platform.
[2024-04-10] MEDS: VIMPAT 150 MG IV (08:56)
[2024-04-10] MEDS: KEPPRA 500 MG IV (08:57)
[2024-04-10] MEDS: VITAMIN C PO (08:58)
[2024-04-10] MEDS: VALIUM INJECTION 5 MG IV (08:58)
--- NOTE | 2024-04-10 08:58 | W.PN.HOSP.TC ---
Today's Communication/Plan
-
CW ABX
Wean FIO2 as able
Tx to IMU
Assessment / Plan
Assessment / Plan
HPI: 48-year-old with past medical history for seizure, cerebral palsy presented with shortness of breath. She was noted to be lethargic and jittery. History obtained primarily from family. Patient lives with her parents. She was noted to have
seizure activity with fever at home.
Patient was hypoxic on her usual 1 L of home oxygen. Patient received fluids and Zosyn in ER. Admitted for further management .
#Sepsis
#Acute on chronic respiratory failure with hypoxia due to suspected bilateral pneumonia with aspiration
# Recurrent aspiation
# Chronic dysphagia
-High flow nasal cannula and titrate FiO2 and flow rate to maintain SpO2 >90-94%
- continue Cefepime and Flagyl
-Follow cultures
-Continue IV fluids
-Keep strict NPO for now
-Aspiration precautions with HOB >30-45 degrees
#Chronic dysphagia
# History for esophageal web
-She is usually on a pur�ed diet with nectar thickened liquids
-Strict NPO at this time
#Hypernatremia- normalized
-From dehydration
-Received 2 liter NSS bolus in the ER
-Continue IV fluids
#Acute Kidney Injury
-Suspected prerenal; poor PO intake reported at home
-Continue IV fluids till oral intake is adequate
#Mild transaminitis from infection
-Possibly from infection/sepsis -- trend LFTs
#Acute on chronic hypotension
-Continue midodrine 15 mg 3 times daily with parameters
#Cerebral Palsy
#Seizure Disorder
- Stable.
- Appreciate roll mill operator assistance with replacing seizure medications: Hold onfi, Trileptal, tiagabin due to the need to convert to intravenous: instead of Onfi 10mg BID, use Diazepam 5mg IV q12hr, and instead of Trileptal use lacosamide 150mg IV
q12hr, and instead of Toagabine 4mg HS use Keppra 500mg IV q12hr - this was all confirmed with neurology (Dr. Garcia)
#History of Ovarian Cancer
- S/p surgery and then hormonal therapy.
- Has completed treatment x 5 years.
- Remains on letrozole at family preference.
#Functional quadriplegia due to cerebral palsy
- Dependent on family for all care
#DVT Prophylaxis: Heparin Subq
#Code Status: Full
Nutrition - will place NG tube once off of high flow O2 and cw speech therapy
DW mom at bedside- guarded prognosis with chronic dysphagia and recurrent aspiration causing hypoxic respiratory failure episodes.
DW RN
Anticipated Discharge: > 48 hours
Subjective/Interval History
-
Date of Service: April 10, 2024
Patient mostly sleepy. Arousable. No distress noted.
Objective Data
-
Labs:
Laboratory Results
04/10/24
03:13
WBC 4.1 L
Hgb 10.7 L
Hct 31.1 L
Plt Count 152
Sodium 137
Potassium 3.2 L
Chloride 102
Carbon Dioxide 24
BUN 28 H
Creatinine 0.8
Glucose 117 H
Calcium 9.9
Total Bilirubin 0.6
AST 114 H
ALT 86 H
Alkaline Phosphatase 190 H
Vital Signs:
Vital Signs
Temp Pulse Resp BP Pulse Ox
95.6 F L 68 18 127/74 100
04/10/24 07:44 04/10/24 06:00 04/10/24 06:06 04/10/24 06:00 04/10/24 08:18
I&O
04/09/24 04/10/24 04/11/24
06:59 06:59 06:59
Intake Total 800 / 800 807.5 / 807.5
Balance 800 / 800 807.5 / 807.5
Review of Systems
-
Unable to obtain full review of systems at this time due to: Patient Non-verbal and Other ( Cerebral palsy)
Physical Exam
-
General: Comfortable
Respiratory: Clear to Auscultation ( anteriorly) and Non Labored Respirations; Negative Accessory Resp Muscle Use
Cardiac: Regular Rhythm and S1/S2; Negative Tachycardic
GI: Soft
Neuro: Other (sleepy )
Psych: Calm
Data Reviewed
-
Labs: Labs Reviewed by me
--- NOTE | 2024-04-10 09:00 | PTCARENOTE ---
Received pt. @ change of shift. Pt. drowsy, awakens to verbal/tactile stim; hx CP, nonverbal @ baseline. SB-SR on monitor. SpO2 98% on HFNC 50L/50%. Auscultated coarse breath sounds w scattered crackles throughout. Excessive oral white oral
secretions, frequent oral care provided. Plan to attempt to wean O2 today. Inc b/b. Kim care provided. Repositioned per protocol. L midline patent, dressing c/d/i. Pt.'s mother remains @ bedside. Safe environment maintained.
[2024-04-10] MEDS: STERILE WATER FOR INJECTION 10 ML IV ×2 (10:01→21:55)
[2024-04-10] MEDS: D5/0.45%NSS with KCL 10 MEQ 1000 IV (10:01)
[2024-04-10] MEDS: MAXIPIME 2000 MG IV ×2 (10:01→21:55)
--- NOTE | 2024-04-10 11:39 | PTCARENOTE ---
RT weaned HFNC to 40L/40% @ 0930, pt. tolerated wean, maintained SpO2 99-100%. RT switched pt. over to NC @ 1130, weaned down to 6LNC and SpO2 maintaining 100%. No s/s of resp disress. Pt.'s mother remains @ bedside. Safe environment maintained.
[2024-04-10] MEDS: LASIX 40 MG IV (15:06)
--- NOTE | 2024-04-10 17:54 | PTCARENOTE ---
Simeon schumacher inserted and secured @ 65cm; placement verified w x-ray. Dr. Pettit notified and plan to restart home meds/TF this evening. Diuresing s/p IV Lasix, voiding 1100 of yellow urine. Repositioned per protocol. Pt.'s father @ bedside
updated on plan of care.
[2024-04-10 18:13] LABS: Blood Urea Nitrogen 30 mg/dl (7-17); Calcium 9.5 mg/dl (8.4-10.2); Carbon Dioxide 28 mmol/L (22-30); Chloride 103 mmol/L (98-107); Estimated Creatinine Clearance 76 ml/min; Glucose 148 mg/dl (70-99); Magnesium 1.8 mg/dl (1.6-2.3); Phosphorus 2.7 mg/dl (2.5-4.5); Potassium 2.8 mmol/L (3.5-5.1); Sodium 138 mmol/L (135-145); eGFR > 60.00
[2024-04-10] MEDS: NEUTRA-PHOS POWDER PACKET 250 MG TUBE (19:08)
[2024-04-10] MEDS: KCL ELIXIR 40 MEQ TUBE ×2 (19:08→23:09)
[2024-04-10] MEDS: MAGNESIUM OXIDE 500 MG TUBE (19:08)
[2024-04-10] MEDS: DESENEX/MITRAZOL/ZEASORB 1 APPLIC TOPICAL (19:08)
--- NOTE | 2024-04-10 20:00 | PTCARENOTE ---
Rec'd pt awake, moaning, grinds teeth, nonverbal, FRAZIER, bilat mitts , father at bedside, SR, weak distal pulses, skin warm/dry, O2 4 liters nc, sat 100, lungs decr in bases, + bowel sounds, no bm, abd soft, L nares dobhoff- rec jevity 1.5 at 20ml/hr
& 25ml/hr h20 flush, no resid, NPO, purewick in place- yellow urine
[2024-04-10] MEDS: ONFI 10 MG PO (20:03)
[2024-04-10] MEDS: TRILEPTAL 600 MG PO (20:03)
[2024-04-10] MEDS: FEMARA 2.5 MG PO (21:54)
--- NOTE | 2024-04-10 22:00 | PTCARENOTE ---
o2 decr to 2liters nc
[2024-04-10] MEDS: NON-FORMULARY ITEM 4 MG PO (22:02)
--- NOTE | 2024-04-10 23:58 | PTCARENOTE ---
sys reviewed, sat 99 on 2 liters, CHG bath done, linens changed
[2024-04-11] VITALS (15 sets, daily range): BP systolic 85–134; BP diastolic 45–85; BMI 26.1
--- NOTE | 2024-04-11 01:49 | PTCARENOTE ---
pt still awake, grinding teeth, moaning, father declined her being turned at this time, tube fdg incr to 40ml/hr
[2024-04-11] MEDS: FLAGYL 500 MG 100 IV ×3 (03:10→19:29)
[2024-04-11] MEDS: KCL ELIXIR 40 MEQ TUBE (03:10)
[2024-04-11] MEDS: SOLU-CORTEF 50 MG IV ×4 (05:08→23:45)
[2024-04-11] MEDS: D5/0.45%NSS with KCL 10 MEQ 1000 IV (05:08)
[2024-04-11 05:25] LABS: % Basophils 0.2 % (0-2); % Immature Granulocytes 0.7 % (0-0.5); % Lymphocytes 18.6 % (20.5-51.1); % Monocytes 13.5 % (1.7-9.3); Absolute Lymphocytes 1.1 10^3/uL (1.2-3.4); Absolute Monocytes 0.8 10^3/uL (0.1-0.6); Absolute Neutrophils 3.9 10^3/uL (1.4-6.5); Hematocrit 31.6 % (37.0-47.0); Hemoglobin 11.1 g/dL (12.0-16.0); Mean Corp Hgb Conc. 35.1 g/dL (33.0-37.0); Mean Corpuscular Hgb 29.4 pg (27.0-31.0); Mean Corpuscular Volume 83.6 fL (81.0-99.0); Mean Platelet Volume 12.1 fL (7.4-10.4); Nucleated Red Blood Cells % 0 %; Platelet Count 183 10^3/uL (130-400); Red Blood Cell Count 3.78 10^6/uL (4.20-5.40); Red Cell Dist. Width 13.2 % (11.5-14.5); White Blood Cell Count 5.8 10^3/uL (4.8-10.8)
[2024-04-11 06:13] LABS: ALT (SGPT) 75 U/L (0-35); AST (SGOT) 97 U/L (14-36); Alkaline Phosphatase 183 U/L (38-126); Blood Urea Nitrogen 31 mg/dl (7-17); Calcium 9.8 mg/dl (8.4-10.2); Carbon Dioxide 24 mmol/L (22-30); Chloride 109 mmol/L (98-107); Estimated Creatinine Clearance 75 ml/min; Glucose 165 mg/dl (70-99); Potassium 5.1 mmol/L (3.5-5.1); Sodium 139 mmol/L (135-145); Total Bilirubin 0.4 mg/dl (0.2-1.3); Total Protein 6.1 g/dl (6.3-8.2); eGFR > 60.00
[2024-04-11] MEDS: ONFI 10 MG PO ×2 (07:59→19:29)
[2024-04-11] MEDS: ProAmatine 15 MG PO ×2 (07:59→16:26)
[2024-04-11] MEDS: HEPARIN 5000 UNITS SC ×3 (07:59→23:44)
[2024-04-11] MEDS: VITAMIN C 500 MG PO (08:00)
[2024-04-11] MEDS: VISBIOME PO (08:00)
[2024-04-11] MEDS: TRILEPTAL 600 MG PO ×2 (08:00→19:29)
--- NOTE | 2024-04-11 08:00 | PTCARENOTE ---
Received patient from police shift commander. Patient is sleeping, non verbal. father at bedside. She is on 2L nasal cannula, 100% oxygen saturation. Patient is sinus rahda on monitor. Tube feed is running through dobhoff, purewick in place for urine.
Skin is intact throughout. Turning and repositioning q2. Will review orders. IMU status.
[2024-04-11] MEDS: DESENEX/MITRAZOL/ZEASORB 1 APPLIC TOPICAL ×2 (08:16→19:30)
--- NOTE | 2024-04-11 09:21 | PTOTSP ---
Speech Language Pathology
Pt was evaluated by [employer] on 04/08 with recommendations for baseline diet of IDDSI Level 4 (Puree) and Mildly thick liquids. Recent VSE completed 03/20/24 with recommendations for this diet with deep penetration of thin liquids noted with no aspiration
during study. Per RN, after speech eval, pt with respiratory distress and was transferred to ICU. Currently with DHT and discussions re: PEG vs comfort care. Per discussion with RN, medical team has determined that P.O. intake is extremely high
risk given continued PNA on diet. Repeat VSE not indicated, as one just completed 03/20. Discussed with MD. If would like continued speech follow up, need speech orders needed given upgrade to ICU. RN notified.
[2024-04-11] MEDS: STERILE WATER FOR INJECTION 10 ML IV ×2 (09:43→21:31)
[2024-04-11] MEDS: MAXIPIME 2000 MG IV ×2 (09:43→21:31)
--- NOTE | 2024-04-11 13:07 | PN.CDI ---
CDI
- -
CDI:
Physician Documentation Request
Admit Date: 04/07/24 19:44
Dear Doctor Elliott,
Please review the following and provide your response in the progress notes.
Clinical Indicators:
- 04/10 PN 'Sepsis'
- 'Acute Kidney Injury'
- 'Acute on chronic respiratory failure with hypoxia'
- Worsening O2 saturation - placed on high flow at 50L
- Lactic acid 2.9
Please clarify which of the following most accurately describes the status of the patient's infection:
Sepsis
Severe Sepsis with acute respiratory failure
- Sepsis with associated acute organ dysfunction, such as renal or respiratory failure
- Documentation should indicate the association between the sepsis and the organ dysfunction
Other
Use of terms such as suspected, likely, concern for, or probable (associated with a specific diagnosis that is being evaluated, monitored, or treated as if it exists) are acceptable and can be coded in the inpatient setting, when documented at the
time of discharge.
Thank you,
Ludwig Carey RN
CDI Specialist
Please use your independent medical judgment in providing your response.
--- NOTE | 2024-04-11 14:09 | PTCARENOTE ---
No change in patient's assessment. Family awaiting discussion with Dr. Gallagher regarding goals of care.
--- NOTE | 2024-04-11 15:07 | CM ---
CM following re: discharge planning.
Reviewed pt's chart, met with pt.
Pt is a 48 year old female, admitted with primary dx of Sepsis. Acute on chronic respiratory failure with hypoxia due to suspected bilateral pneumonia with aspiration
Patient lives with parents in a ranch style home with ramps for access, wheelchair, L[place], shower chair, rails and hospital bed. Patient mother indicated that patient has a waiver for 52 hours weekly and that they have updated program regarding
patient hospitalization. Patient also goes to program/workshop 2-3 days with transportation and family cover cost of the workshop([employer] program. Family is in process of applying for a consolidated waiver but understand that they
are on the waiting list at this time. Patient parents are primary caregivers and indicate that they do the medications for patient. Patient parents have stated that they do not want her to go to SNF, their plan is for patient to return home with
caregiver services to provide any additional care.
Pt's parents brought to me their concerns regarding additional serviced and a possibility to place their daughter to a boarding/senior care with 24/ caregiver services. Pt's parents stated that pt has servicer from [facility]
insurance and they will be working to register their daughter at [place] [employer] of [employer]lectual disability for services. pt's parents stated that their daughter approved for 52 hours of caregiver services per week and they do
have a problem to find a company that has staff. Pt's father stated he has w/c van and usually transports pt home from hospitals and transpprting his daughter to appointments when needed. .
PCP: Dr. Timbo Courtney
Pharmacy: [facility] in [place].
D/C plan:home with resumptions of caregiver services and family support.
CM will follow with discharge plan updates as hospitalization progresses
--- NOTE | 2024-04-11 15:20 | CON.GI ---
Addendum entered and electronically signed by Daisy Whitten MD 04/11/24 17:34:
I saw and examined the patient.
The BACKER UP's note was reviewed and I agree with the note.
This is a
Comment: This is a 48-year-old female who has a history of seizures, CP, ovarian CA status post LUCERO/BSO and also has a vagus nerve stimulator implant with history of recurrent aspiration pneumonia and had a prolonged hospital stay recently from
03/23/2024 to 04/03/2024 for sepsis and aspiration pneumonia. She also had speech evaluation during that admission and was cleared for a pur�ed diet but now presents again with shortness of breath with recurrent aspiration pneumonia third episode and
we were consulted to evaluate for possible PEG placement. She also has a history of esophageal web. Patient is nonverbal and history obtained from mom at bedside.
Assessment and plan recurrent aspiration pneumonia third admission currently tolerating Dobbhoff tube feeds and in the past was cleared for pur�ed diet with aspiration precautions per speech. May need a PEG placement was consulted by Dr. Pettit
to evaluate. Discussed with mom at bedside she is going to talk to her and let us know tomorrow if they are agreeable to proceed which we will schedule once her pulmonary status improves she was on high flow oxygen and now on 6 L.
2. She has abnormal LFTs also noted during her prior admission with sepsis likely multifactorial from sepsis with hypotension and low flow state and probable underlying fatty liver and also likely related to DI LI from her medications and currently
on antibiotics. they are trending down continue to monitor will get abdomen ultrasound and hepatitis serologies
Original Note:
Consultation
-
Date/Time Consultation Requested: 04/11/24 1511
Date/Time Consultation Performed: 04/11/24 1520
Requesting Provider: Isiah Pettit MD
Performing Provider: DEBO Fierro, Daisy Whitten MD
Reason for Consultation: recurrent aspiration eval for peg
Medical History
Chief Complaint / HPI
Chief Complaint: recurrent fever
History of Present Illness:
Pt is a 48yo with hx seizures/epilepsy, cerebral palsy, ovarian CA nonverbal with admission with recurrent admission with concern for aspiration and esophageal web. Pt was initially seen in early March with noted foreign body with clear round plastic
disc in back of oropharynx with drooling and object was removed. She complete speech eval with concern for esophageal web.. EGD was discussed with family but recommended OP follow up as prior to that admission no concern for dysphagia pulm status
did not allow. She was discharged 03/22 and returned 03/23 with continued fever and PNA. She had DHT placed. she was eventually seen by speech therapy 04/08 with impaired oropharyngeal swallowing and placed in IDDSI 4 diet with mild thickened
liquids. She was discharged and per mother day after discharged had eaten breakfast then note 45 minutes rosa with gagging, shakiness and concern for recurrent aspiration. On return WBC stable but fever was up to 102.8 and CXR with
PNA/pneumonitis. Asked to see to discuss peg and EGD with eval for possible esophageal web.
Pt is non verbal but in review with mother no hx dysphagia, nausea, vomiting and possible some wt loss with several admission. At baseline pt with chronic constipation. No hx rectal bleeding with no prior EGD or colonoscopy in past. No
anticoagulation prior to admission.
.
Past Medical History
Past Medical History: Cancer (ovarian cancer), Seizures (epilepsy) and Other (cerebral palsy)
Past Surgical History: Appendectomy, Gynecological (LUCERO, BSO) and Other (vagus nerve stimulator implant )
Social History
Tobacco: Non-Smoker
Alcohol: None
Drug: None
Personal: Single
Living: With Family
Family History
Family History: Reviewed & Not Pertinent
Allergies / Home Medications
Allergy/AdvReac Type Severity Reaction Status Date / Time
brompheniramine Allergy hyper Verified 04/07/24 16:05
[From Dimetapp Cold-Allergy
(PE)]
chloral hydrate Allergy hyper Verified 04/07/24 16:05
diphenhydramine Allergy hyper Verified 04/07/24 16:05
[From Benadryl]
latex Allergy Swelling Verified 04/07/24 16:05
phenobarbital Allergy hyper Verified 04/07/24 16:05
phenylephrine Allergy hyper Verified 04/07/24 16:05
[From Dimetapp Cold-Allergy
(PE)]
phenytoin [From Dilantin] Allergy Rash Verified 04/07/24 16:05
Sulfa (Sulfonamide Allergy Hives Verified 04/07/24 16:05
Antibiotics)
topiramate [From Topamax] Allergy Rash Verified 04/07/24 16:05
�Medication �Instructions �Recorded
Lactobac no.2-Bifidobac no.1-S. 1 cap PO DAILY Gastrointestinal 03/17/24
thermo 112.5 billion cell capsule Issue
(Visbiome)
ascorbic acid (vitamin C) 500 mg 500 mg PO DAILY Supplement 03/17/24
tablet (Vitamin C)
cetirizine 10 mg tablet (Zyrtec) 10 mg PO DAILY PRN allergies 03/17/24
clobazam 10 mg tablet (Onfi) 10 mg PO BID Seizures 03/17/24
docusate sodium 50 mg/5 mL oral 100 mg PO BIDPRN PRN constipation 03/17/24
liquid
fluticasone propionate 50 2 spray intranasal DAILY Allergies 03/17/24
mcg/actuation nasal
spray,suspension
letrozole 2.5 mg tablet 2.5 mg PO HS Hormonal Agent 03/17/24
montelukast 10 mg tablet 10 mg PO HS Allergies 03/17/24
(Singulair)
oxcarbazepine 600 mg tablet 600 mg PO BID Seizures 03/17/24
(Trileptal)
polyethylene glycol 3350 17 gram 17 g PO DAILY PRN constipation 03/17/24
oral powder packet (Miralax)
sennosides 8.8 mg/5 mL oral syrup 17.6 mg PO HSPRN PRN constipation 03/17/24
(senna)
tiagabine 4 mg tablet 4 mg PO HS Seizures 03/17/24
acetaminophen 500 mg tablet 1,000 mg PO Q6H PRN mild pain 03/23/24
(Tylenol Extra Strength)
midodrine 5 mg tablet 15 mg PO BID Blood Pressure 03/23/24
amoxicillin 250 mg-potassium 10 ml PO Q12 #75 mL 04/03/24
clavulanate 62.5 mg/5 mL oral
suspension
Review of Systems
-
History Source: Patient and Family
Constitutional: Reports Fever and Weight Loss
EENT: Reports No Symptoms
Respiratory: Reports Cough
Cardiac: Reports No Symptoms
Abdomen/GI: Reports Constipated (by history)
: Reports No Symptoms
Musculoskeletal: Reports No Symptoms
Skin: Reports No Symptoms
Neurological: Reports No Symptoms
Endocrine: Reports No Symptoms
Hematologic/Lymphatic: Reports No Symptoms
Vital Signs
Temp Pulse Resp BP Pulse Ox
99.2 F 49 15 120/78 100
04/11/24 12:00 04/11/24 14:00 04/11/24 14:00 04/11/24 14:00 04/11/24 14:00
Physical Exam
Exam
General: Well Developed, Well Nourished and No Apparent Distress
HEENT: Normocephalic, Anicteric and Other (chronic grinding of teeth)
Respiratory: Clear
Cardiac: Other (bradicardia)
GI: Soft, Non Tender, Non Distended and Other (mid abd scar from prior hysterectomy)
Musculoskeletal: No Clubbing and No Cyanosis
Skin: Warm and Dry
Neuro: Awake, Alert and Other (non verbal )
Psych: Calm
Results
WBC 5.8 10^3/uL (4.8-10.8) 04/11/24 05:17
Hgb 11.1 g/dL (12.0-16.0) L 04/11/24 05:17
Hct 31.6 % (37.0-47.0) L 04/11/24 05:17
MCV 83.6 fL (81.0-99.0) 04/11/24 05:17
Plt Count 183 10^3/uL (130-400) D 04/11/24 05:17
Absolute Neuts (auto) 3.9 10^3/uL (1.4-6.5) 04/11/24 05:17
Sodium 139 mmol/L (135-145) 04/11/24 05:17
Potassium 5.1 mmol/L (3.5-5.1) D 04/11/24 05:17
Chloride 109 mmol/L (98-107) H 04/11/24 05:17
Carbon Dioxide 24 mmol/L (22-30) 04/11/24 05:17
BUN 31 mg/dl (7-17) H 04/11/24 05:17
Creatinine 0.7 mg/dL (0.6-1.0) 04/11/24 05:17
Calcium 9.8 mg/dl (8.4-10.2) 04/11/24 05:17
Total Bilirubin 0.4 mg/dl (0.2-1.3) 04/11/24 05:17
AST 97 U/L (14-36) H 04/11/24 05:17
ALT 75 U/L (0-35) H 04/11/24 05:17
Alkaline Phosphatase 183 U/L (38-126) H 04/11/24 05:17
Diagnostic Image Results:
04/10- Abd Nasogastric tube with tip in stomach.
04/10 CR Chest Portable - 1 ViewImproving bilateral pneumonia.
Prior GI Procedures:
EGD: none
Colonoscopy: none
Assessment / Plan
-
Pt is a 48yo with hx seizures/epilepsy, cerebral palsy, ovarian CA nonverbal with admission with recurrent admission with concern for aspiration and esophageal web. Pt was initially seen in early March with noted foreign body with clear round plastic
disc in back of oropharynx with drooling and object was removed. She complete speech eval with concern for esophageal web.. EGD was discussed with family but recommended OP follow up as prior to that admission no concern for dysphagia pulm status
did not allow. She was discharged 03/22 and returned 03/23 with continued fever and PNA. She had DHT placed. she was eventually seen by speech therapy 04/08 with impaired oropharyngeal swallowing and placed in IDDSI 4 diet with mild thickened
liquids. She was discharged and per mother day after discharged had eaten breakfast then note 45 minutes rosa with gagging, shakiness and concern for recurrent aspiration. On return WBC stable but fever was up to 102.8 and CXR with
PNA/pneumonitis. Asked to see to discuss peg and EGD with eval for possible esophageal web. Pt also with elevated LFT's.
Impression:
recurrent PNA
hx Possible esophageal web seen on video swallow exam
nutrition with current DHT feedings
hx constipation regular stools with tube feeds
bradicardia
elevated LFT's
recent foreign body found in patient's oropharynx with removal
other medical problems:
Recurrent UTIs
Cerebral palsy, nonverbal
Seizure disorder
hx ovarian CA
Plan:
Pt with current concern for recurrent PNA -- 3rd admission
discussed with mother considering EGD/web eval with possible peg placement -- she will review with spouse and decide on proceeding
discussed risk of peg with mother including concern for pt pulling at peg
pt currently with tube feeds and tolerating
with persistent LFT elevation check US abdomen
trend LFT's
check hepatitis panel in AM
reviewed with nursing staff and Dr. corcoran
will follow
-
-
Thank you for consultation and allowing me to participate in the patient's care. Please call the property controller GI physician during the after hours with any questions or concerns.
--- NOTE | 2024-04-11 17:27 | W.PN.HOSP.TC ---
Today's Communication/Plan
-
Tx to med surg
GI consult for PEG
Assessment / Plan
Assessment / Plan
HPI: 48-year-old with past medical history for seizure, cerebral palsy presented with shortness of breath. She was noted to be lethargic and jittery. History obtained primarily from family. Patient lives with her parents. She was noted to have
seizure activity with fever at home.
Patient was hypoxic on her usual 1 L of home oxygen. Patient received fluids and Zosyn in ER. Admitted for further management .
#Sepsis
#Acute on chronic respiratory failure with hypoxia due to suspected bilateral pneumonia with aspiration
# Recurrent aspiration
# Chronic dysphagia
- Improved oxygenation-currently on 2 L
- continue Cefepime and Flagyl
-Keep strict NPO for now
- CW NG feeds
- DC IV fluids
-Aspiration precautions with HOB >30-45 degrees
#Chronic dysphagia
# History for esophageal web
-She is usually on a pur�ed diet with nectar thickened liquids
-Strict NPO at this time
#Hypernatremia- normalized
-From dehydration
-Received 2 liter NSS bolus in the ER
-Continue IV fluids
#Acute Kidney Injury
-Suspected prerenal; poor PO intake reported at home
-Continue IV fluids till oral intake is adequate
#Mild transaminitis from infection
-Possibly from infection/sepsis -- trend LFTs
#Acute on chronic hypotension
-Continue midodrine 15 mg 3 times daily with parameters
#Cerebral Palsy
#Seizure Disorder
- Stable.
- Back on her home AEDs
#History of Ovarian Cancer
- S/p surgery and then hormonal therapy.
- Has completed treatment x 5 years.
- Remains on letrozole at family preference.
#Functional quadriplegia due to cerebral palsy
- Dependent on family for all care
#DVT Prophylaxis: Heparin Subq
#Code Status: Full
Nutrition - will place NG tube once off of high flow O2 and cw speech therapy
ROSA RN
DW [employer] who had chat with parents - they would like to proceed with PEG tube for nutrition
Stable for transfer to med surg
Anticipated Discharge: > 48 hours
Subjective/Interval History
-
Date of Service: April 11, 2024
seen earlier this morning. Patient is a much more alert and awake. She has NG tube. Tolerating tube feeds.
Currently on 2 L of oxygen.
Objective Data
-
Labs:
Laboratory Results
04/11/24
05:17
WBC 5.8
Hgb 11.1 L
Hct 31.6 L
Plt Count 183 D
Sodium 139
Potassium 5.1 D
Chloride 109 H
Carbon Dioxide 24
BUN 31 H
Creatinine 0.7
Glucose 165 H
Calcium 9.8
Total Bilirubin 0.4
AST 97 H
ALT 75 H
Alkaline Phosphatase 183 H
Vital Signs:
Vital Signs
Temp Pulse Resp BP Pulse Ox
99.2 F 46 15 108/73 100
04/11/24 12:00 04/11/24 16:26 04/11/24 14:00 04/11/24 16:26 04/11/24 14:00
I&O
04/10/24 04/11/24 04/12/24
06:59 06:59 06:59
Intake Total 807.5 / 875.0 2567.5 / 2692.5 880 / 880
Output Total 1800 / 1800
Balance 807.5 / 875.0 767.5 / 892.5 880 / 880
Review of Systems
-
Unable to obtain full review of systems at this time due to: Patient Non-verbal
Physical Exam
-
General: No Apparent Distress
HEENT: Moist Mucous Membranes
Respiratory: Clear to Auscultation (anteriorly)
Cardiac: Regular Rhythm and S1/S2
GI: Soft
Neuro: Awake and Alert
Psych: Calm
Data Reviewed
-
Labs: Labs Reviewed by me
--- NOTE | 2024-04-11 18:08 | PTCARENOTE ---
Reviewed patient's HR/Vital signs prior to moving patient. obtained EKG as patient has been sinus radha in 40s. Cancelled transfer to [facility]. EKG reviewed by Dr. Pettit..
--- NOTE | 2024-04-11 19:16 | W.PN.PUL3 ---
Today's Communication / Plan
-
Re-check CXR in AM
Continue O2 and titrate FiO2 to keep SpO2 >90-94%
Aspiration precautions
Continue solu-cortef 50mg q6hr --> can wean down to 50mg q8hr today, and continue weaning from there on
Continue Abx
GI consult placed today to eval for EGD vs PEG she has recent suspicion for esophageal webs, and this could be contributing to her aspiration
Patient has markedly improved, is now on mid flow nasal cannula and saturating well at 100% on 2 L/min.
She became bradycardic today into the 30-40s, EKG with sinus bradycardia.
Due to her HR dropping, pt to remain in IMU instead of being downgraded to Med-Surg. She remains asymptomatic and normotensive (133/77) despite bradycardia.
Pulmonary service will continue to follow along
Assessment
-
Assessment: 48-year-old female with a past medical history of intractable epilepsy with recent hospitalization from 03/2304/03/2024 due to sepsis from suspected aspiration pneumonia, with GI consulted due to history of esophageal webs however due
to anesthesia risk no endoscopy was performed. Patient discharged to home with home care on 04/03 on Augmentin for an additional 3 days. She now presents with low pulse ox. She is chronically on 1 L/min. Apparently patient had twitching that
started today. In triage she was febrile to 102.8 �F, heart rate 69, BP 158/132, she was saturating 96% on 4 L/min. Labs showed normal WBC at 8.2, sodium 146, STEVE with creatinine 1.5, lactate 2.9, calcium 12.8, elevated LFTs with ALP 269, AST 150,
80 LT 140, urinalysis showing 16�20 urine WBC with negative nitrite and trace LE, and urine culture was collected as well as blood culture. CXR showed bilateral infiltrate/opacities, but it was improved compared to recent CXR from 03/29/2024. In
the ER she was given Tylenol, Zosyn and IV fluids with NS 0.9% x2L. She was admitted to the hospitalist service on 4 L/min, and was continued on antibiotics with cefepime/flagyl. On the morning of 04/08, her oxygen requirements increased with
respiratory distress and hypotension. She was transferred to the ICU for further care and critical care services consulted for additional management/recommendations.
Chronic conditions HEART SPECIALIST: Epilepsy, cerebral palsy, chronic dysphagia, history of esophageal webs, chronic hypotension on midodrine, history of ovarian cancer s/p LUCERO/BSO, functional quadriplegia, recurrent UTIs, history of aspiration pneumonia
Impression:
#Acute on chronic respiratory failure with hypoxia due to suspected bilateral pneumonia with aspiration - worsened CXR on 04/09, better on 04/10 s/p diuresis - hence I believe this is due to acute CHF and not ARDS
#Febrile illness due to sepsis (without shock)
#Hypotension - due to sepsis however her BP improved with NS bolus x2 and she never required vasopressors - BP now improved
#Acute kidney injury with baseline creatinine of approximately 0.6
#Epilepsy on multiple AEDs
#Chronic dysphagia with Hx of esophageal webs
#Hx of recurrent UTI
#Chronic hypotension on midodrine
Plan:
- CXR worsening on 04/09 with severe progressed bilateral opacities --> likely due to acute CHF, her interstitial opacities improved s/p diuresis
- Gave another dose of lasix on 04/10 with continued improvement in her sats
- Dobbhoff tube placed for PO access and nutrition; Maintain SpO2 >90-94%
- Keep K>4, Mg>2
- Continue hydrocortisone 50mg IV q6hr given her severe CAP --> weaned to 50mg IV q8hr today
- Check echo --> normal LV size/function, normal RV size/function, no significant valvular disease. trend BNP
- Continue broad spectrum Abx with cefepime and flagyl
- Follow up blood Cx and urine Cx (UCx growing C. albicans - likely a contaminant)
- Check sputum Cx; Legionella/Strep PNA urine antigens are both negative
- We tried nasotracheal suctioning the pt once she came to the ICU - there was no secretions that we were able to effectively suction up, plus the CXR does not show any proximal airway atelectasis, so not sure how effective mucolytics or
NT-suctioning will be.
- Given her risk of aspiration, keep strict NPO and re-assess daily
- Aspiration precautions with HOB >30-45 degrees
- If sudden SOB occurs and is found to be from proximal airway atelectasis with plugging vs aspiration, then will need to bronch her and she is at high risk of intubation in that scenario - believe she is out of this window for now as she continues
to improve
- prn nebulized bronchodilators
- Regarding her AEDs, we had initially converted them to IV when she was on high flow, however now that she is on mid flow with Dobbhoff tube, we will transition back to her home p.o. meds.
- Continue tube feeds and advance rate to goal as tolerated
- GI consult now to be placed to eval for EGD vs G-tube
- Neurochecks as needed
- Maintain MAP>65
- Maintain euglycemia with goal BG 140-180
- DVT ppx
GOC discussion by Dr. Pettit: I discussed with the patient's mother, Tanisha, that if her breathing were to get worse would they want us to put her onto a ventilator. Her mother said yes. It would be on clear how easy it would be to get her off the
ventilator if she progressed that far, but the family wants to do everything they can to keep her alive if it comes to that. I answered all of her mother's questions.
Patient was transferred to the IMU yesterday. Patient was going to be transferred to [facility] today but because of her bradycardia, she should remain IMU status. Pulmonary service will continue to follow along.
Data:
CXR 04-10-2024: Improving bilateral pneumonia.
CXR 04-09-2024: Severe diffuse bilateral airspace disease, progressed and likely reflects pneumonia. Developing ARDS
not excluded.
CXR 04-08-2024: Worsening bilateral pneumonitis/pneumonia.
TTE 04-11-2024:
Normal LV size and function with no regional wall motion abnormalities.
LVEF is 55 to 60% by visual estimation.
Normal diastolic function.
Normal right ventricular size and function.
No significant valvular disease.
No prior study available for comparison.
Total time spent today was 35 minutes for this encounter. Time includes reviewing laboratory test/imaging results, reviewing pertinent medical records, obtaining and reviewing medical history, performing an appropriate exam, ordering medications,
tests and procedures. Time also includes documentation of this encounter, coordinating patient care and communicating with other healthcare professionals. Total time does not include separately billed tests performed on this date of service.
Subjective Data
-
Date of Service:
Date of Service: April 11, 2024
Chief Complaint: Pulmonary Follow Up
Subjective:
Patient seen and evaluated today at bedside with the parents. She is doing well, currently on 2 L/min saturating 98%. No acute events reported from overnight.
Review of Systems
General: Other (Unable to obtain given patient's clinical status/nonverbal)
Objective Data
Data Reviewed
Vital Signs / I&O / Oxygen:
Vital Signs
Temp Pulse Resp BP Pulse Ox
97.9 F 48 14 133/77 100
04/11/24 16:00 04/11/24 18:04 04/11/24 18:04 04/11/24 18:04 04/11/24 17:00
Intake and Output
04/10/24 04/11/24 04/12/24
06:59 06:59 06:59
Intake Total 807.5 / 875.0 2567.5 / 2692.5 1160 / 1160
Output Total 1800 / 1800 250 / 250
Balance 807.5 / 875.0 767.5 / 892.5 910 / 910
SaO2 100
Nasal Cannula flow liters per 2
minute
Physical Exam
General: Respiratory Distress (Negative) and Comfortable
HEENT: Normocephalic and Anicteric
Cardiovascular: S1-S2 and Peripheral Edema (Negative)
Respiratory: Wheeze (Negative), Crackles (bilaterally), Rhonchi (Negative) and Non-Labored Respirations
GI: Soft, Non Distended, Non Tender and Normal Bowel Sounds
Neurology: Awake and Tremors (Negative)
Skin: Warm and Dry
Labs/Micro/Reports
Lab Data
04/11/24 05:17
04/11/24 05:17
Microbiology
04/07/24 17:06 Blood/Venous Blood Culture - Preliminary
No Growth in 4 days- Final report to follow
04/07/24 16:13 Blood/Venous Blood Culture - Preliminary
No Growth in 4 days- Final report to follow
04/07/24 15:57 Urine Urine Culture - Final
Yoly albicans
04/09/24 00:35 Urine Legionella Urinary Antigen - Final
Negative for Legionella pneumophila Serogroup 1 antigen.
A negative result does not rule out the possiblity of
Legionella infection due to other serogroups or species of
Legionella. Clinical correlation is recommended.
04/09/24 00:35 Urine Streptococcus pneumoniae Antigen (M - Final
Negative for Streptococcus pneumoniae antigen.
A negative result does not exclude infection with
Streptococcus pneumoniae. Clinical correlation is
recommended.
--- NOTE | 2024-04-11 19:38 | W.PN.UPDATE ---
Update Note
Progress Note Update
SCD's d/c'd per RN request, as patient lays in the position and can't wear them, is on Heparin SQ.
--- NOTE | 2024-04-11 20:00 | PTCARENOTE ---
Rec'd pt in bed, nonverbal, moans at times, mother at bedside- will be staying the night, Sinus radha, bp stable, weak distal pulses, O2 2 liters nc, lungs decr in bases, sat 96, + bowel sounds, Left nares dobhoff- jevity 1.5 at 45ml/hr & 25ml/hr
h20 flush, no resid, abd soft, round, no vomiting, purewick repos, was inc of yellow urine
[2024-04-11] MEDS: FEMARA 2.5 MG PO (21:31)
[2024-04-11] MEDS: SINGULAIR 10 MG PO (21:31)
[2024-04-11] MEDS: NON-FORMULARY ITEM 4 MG PO (21:31)
--- NOTE | 2024-04-11 23:57 | PTCARENOTE ---
sys reviewed, not sleeping, CHG bath done, linens changed, Tube fdg off - for ultrasound abd in am
[2024-04-12] VITALS (11 sets, daily range): BP systolic 106–142; BP diastolic 59–77; BMI 26.9
[2024-04-12] MEDS: FLAGYL 500 MG 100 IV (03:26)
[2024-04-12 03:39] LABS: % Basophils 0.1 % (0-2); % Immature Granulocytes 0.8 % (0-0.5); % Lymphocytes 16.3 % (20.5-51.1); % Monocytes 10.1 % (1.7-9.3); % Neutrophils 72.7 % (42.2-75.2); Absolute Immature Granulocytes 0.1 10^3/uL (0-0.05); Absolute Lymphocytes 1.2 10^3/uL (1.2-3.4); Absolute Monocytes 0.7 10^3/uL (0.1-0.6); Absolute Neutrophils 5.2 10^3/uL (1.4-6.5); Hematocrit 32.7 % (37.0-47.0); Hemoglobin 11.3 g/dL (12.0-16.0); Mean Corp Hgb Conc. 34.6 g/dL (33.0-37.0); Mean Corpuscular Hgb 29.2 pg (27.0-31.0); Mean Corpuscular Volume 84.5 fL (81.0-99.0); Mean Platelet Volume 11.9 fL (7.4-10.4); Nucleated Red Blood Cells % 0 %; Platelet Count 198 10^3/uL (130-400); Red Blood Cell Count 3.87 10^6/uL (4.20-5.40); Red Cell Dist. Width 13.7 % (11.5-14.5); White Blood Cell Count 7.2 10^3/uL (4.8-10.8)
--- NOTE | 2024-04-12 03:44 | PTCARENOTE ---
sys reviewed, changes noted; has not slept at all tonight
[2024-04-12 04:02] LABS: ALT (SGPT) 78 U/L (0-35); AST (SGOT) 81 U/L (14-36); Alkaline Phosphatase 190 U/L (38-126); Blood Urea Nitrogen 33 mg/dl (7-17); Calcium 9.5 mg/dl (8.4-10.2); Carbon Dioxide 25 mmol/L (22-30); Chloride 106 mmol/L (98-107); Estimated Creatinine Clearance 89 ml/min; Glucose 151 mg/dl (70-99); Potassium 4.2 mmol/L (3.5-5.1); Sodium 136 mmol/L (135-145); Total Bilirubin 0.3 mg/dl (0.2-1.3); Total Protein 6.1 g/dl (6.3-8.2); eGFR > 60.00
--- NOTE | 2024-04-12 05:00 | PTCARENOTE ---
Pt finally fell asleep
--- NOTE | 2024-04-12 06:45 | PTCARENOTE ---
ultrasound abd done, tube fdg restarted
--- NOTE | 2024-04-12 08:20 | W.PN.HOSP.TC ---
Today's Communication/Plan
-
Tx to tele
TSH
Switch abx to PO
Assessment / Plan
Assessment / Plan
HPI: 48-year-old with past medical history for seizure, cerebral palsy presented with shortness of breath. She was noted to be lethargic and jittery. History obtained primarily from family. Patient lives with her parents. She was noted to have
seizure activity with fever at home.
Patient was hypoxic on her usual 1 L of home oxygen. Patient received fluids and Zosyn in ER. Admitted for further management .
#Sepsis
#Acute on chronic respiratory failure with hypoxia due to suspected bilateral pneumonia with aspiration
# Recurrent aspiration
# Chronic dysphagia
- Improved oxygenation-currently on 2 L
-Switch antibiotics to oral Augmentin for 3 more days
-Keep strict NPO for now
- CW NG feeds
- DC IV fluids
-Aspiration precautions with HOB >30-45 degrees
#Chronic dysphagia
# History for esophageal web
-She is usually on a pur�ed diet with nectar thickened liquids
-Strict NPO at this time
-Consult GI for PEG tube placement-both parents in agreement
# Sinus braycardia -no pauses noted. New in the last 24 hours. Hemodynamically stable. Normal EF with no valvular heart disease noted. No medication to account for. Check TSH. Continue to monitor.
#Hypernatremia- normalized
-From dehydration
#Acute Kidney Injury
-Suspected prerenal; poor PO intake reported at home
- Normalized Cr
#Mild transaminitis from infection
-Possibly from infection/sepsis -- trend LFTs -improving
#Acute on chronic hypotension
-Continue midodrine 15 mg 3 times daily with parameters
#Cerebral Palsy
#Seizure Disorder
- Stable.
- Back on her home AEDs
#History of Ovarian Cancer
- S/p surgery and then hormonal therapy.
- Has completed treatment x 5 years.
- Remains on letrozole at family preference.
#Functional quadriplegia due to cerebral palsy
- Dependent on family for all care
#DVT Prophylaxis: Heparin Subq
#Code Status: Full
Nutrition - will place NG tube once off of high flow O2 and cw speech therapy
DW RN
DW Coater Associate who had chat with parents - they would like to proceed with PEG tube for nutrition
Stable for transfer to Tele
Anticipated Discharge: > 48 hours
Subjective/Interval History
-
Date of Service: April 12, 2024
Patient is alert without distress or agitation.
Objective Data
-
Labs:
Laboratory Results
04/12/24
03:25
WBC 7.2
Hgb 11.3 L
Hct 32.7 L
Plt Count 198
Sodium 136
Potassium 4.2
Chloride 106
Carbon Dioxide 25
BUN 33 H
Creatinine 0.6
Glucose 151 H
Calcium 9.5
Total Bilirubin 0.3
AST 81 H
ALT 78 H
Alkaline Phosphatase 190 H
Vital Signs:
Vital Signs
Temp Pulse Resp BP Pulse Ox
97.8 F 43 15 116/72 100
04/12/24 07:41 04/12/24 06:00 04/12/24 06:00 04/12/24 06:00 04/12/24 06:00
I&O
04/11/24 04/12/24 04/13/24
06:59 06:59 06:59
Intake Total 2567.5 / 2692.5 1860 / 1860
Output Total 1800 / 1800 250 / 250
Balance 767.5 / 892.5 1610 / 1610
Review of Systems
-
Unable to obtain full review of systems at this time due to: Patient Non-verbal
Physical Exam
-
General: No Apparent Distress
HEENT: Moist Mucous Membranes
Respiratory: Clear to Auscultation (anteriorly)
Cardiac: Regular Rhythm, S1/S2 and Bradycardic
GI: Soft
Neuro: Awake and Alert
Psych: Calm
Data Reviewed
-
Labs: Labs Reviewed by me
[2024-04-12] MEDS: DESENEX/MITRAZOL/ZEASORB 1 APPLIC TOPICAL ×2 (08:37→21:56)
[2024-04-12] MEDS: HEPARIN 5000 UNITS SC ×2 (08:38→17:21)
[2024-04-12] MEDS: ONFI 10 MG PO ×2 (08:39→21:50)
[2024-04-12] MEDS: TRILEPTAL 600 MG PO ×2 (08:40→21:53)
[2024-04-12] MEDS: ProAmatine 15 MG PO ×2 (08:40→17:20)
[2024-04-12] MEDS: VITAMIN C 500 MG PO (08:40)
[2024-04-12] MEDS: SOLU-CORTEF 50 MG IV ×3 (08:41→21:51)
[2024-04-12] MEDS: VISBIOME 1 CAP PO (08:41)
--- NOTE | 2024-04-12 09:10 | W.PN.PUL3 ---
Addendum entered and electronically signed by Isiah Pettit MD 04/13/24 09:16:
CDI Response: Acute Diastolic Heart Failure/Acute HFpEF exacerbation
Original Note:
Today's Communication / Plan
-
Keep SpO2 >90-94%
Aspiration precautions
Continue solu-cortef 50mg q6hr --> continue weaning to off over the next 24 hours
Continue Abx to complete a 7-day course assuming she remains afebrile for the 48 hours prior to stopping
GI consult placed on 04/11 to eval for EGD +/- PEG she has recent suspicion for esophageal webs, and this could be contributing to her aspiration -->
I believe this pt is optimized pulmonary-krause for procedure, given she is on room air and saturating >90-94%. She still remains at high risk given her recurrent aspiration, and this needs to be taken into account seriously. But the current window
is time seems to be appropriate given her marked improvement over the last 2 days.
She became bradycardic on 04/11 into the 30-40s, EKG with sinus bradycardia--> this has improved. Perhaps it is due to increased vagal tone.
Pulmonary service will continue to follow along.
Assessment
-
Assessment: 48-year-old female with a past medical history of intractable epilepsy with recent hospitalization from 03/2304/03/2024 due to sepsis from suspected aspiration pneumonia, with GI consulted due to history of esophageal webs however due
to anesthesia risk no endoscopy was performed. Patient discharged to home with home care on 04/03 on Augmentin for an additional 3 days. She now presents with low pulse ox. She is chronically on 1 L/min. Apparently patient had twitching that
started today. In triage she was febrile to 102.8 �F, heart rate 69, BP 158/132, she was saturating 96% on 4 L/min. Labs showed normal WBC at 8.2, sodium 146, STEVE with creatinine 1.5, lactate 2.9, calcium 12.8, elevated LFTs with ALP 269, AST 150,
80 LT 140, urinalysis showing 16�20 urine WBC with negative nitrite and trace LE, and urine culture was collected as well as blood culture. CXR showed bilateral infiltrate/opacities, but it was improved compared to recent CXR from 03/29/2024. In
the ER she was given Tylenol, Zosyn and IV fluids with NS 0.9% x2L. She was admitted to the hospitalist service on 4 L/min, and was continued on antibiotics with cefepime/flagyl. On the morning of 04/08, her oxygen requirements increased with
respiratory distress and hypotension. She was transferred to the ICU for further care and critical care services consulted for additional management/recommendations.
Chronic conditions APPLICATIONS SYSTEM ANALYST: Epilepsy, cerebral palsy, chronic dysphagia, history of esophageal webs, chronic hypotension on midodrine, history of ovarian cancer s/p LUCERO/BSO, functional quadriplegia, recurrent UTIs, history of aspiration pneumonia
Impression:
#Acute on chronic respiratory failure with hypoxia due to suspected bilateral pneumonia with aspiration - worsened CXR on 04/09, better on 04/10 s/p diuresis and more improved per today's CXR (04/12) - hence I believe this is due to acute CHF and not
ARDS in setting of atelectasis
#Febrile illness due to sepsis (without shock)
#Hypotension - due to sepsis however her BP improved with NS bolus x2 and she never required vasopressors - BP now improved
#Acute kidney injury with baseline creatinine of approximately 0.6
#Epilepsy on multiple AEDs
#Chronic dysphagia with Hx of esophageal webs
#Hx of recurrent UTI
#Chronic hypotension on midodrine
Plan:
- CXR worsening on 04/09 with severe progressed bilateral opacities --> likely due to acute CHF, her interstitial opacities improved s/p diuresis
- Gave another dose of lasix on 04/10 with continued improvement in her sats
- Dobbhoff tube placed for PO access and nutrition; Maintain SpO2 >90-94%
- Keep K>4, Mg>2
- Continue hydrocortisone 50mg IV q6hr given her severe CAP --> weaned to 50mg IV q8hr on 04/11 --> wean to 50mg q12hr today x 1 day then could do 25mg q12hr x 1 day then stop
- Check echo --> normal LV size/function, normal RV size/function, no significant valvular disease. trend BNP
- Continue broad spectrum Abx --> cefepime and flagyl now being changed to Augmentin. Would complete a 7 day course of Abx assuming she remains afebrile for 48 hrs prior to stopping
- Follow up blood Cx and urine Cx (UCx growing C. albicans - likely a contaminant)
- Check sputum Cx; Legionella/Strep PNA urine antigens are both negative
- We tried nasotracheal suctioning the pt once she came to the ICU - there was no secretions that we were able to effectively suction up, plus the CXR does not show any proximal airway atelectasis, so not sure how effective mucolytics or
NT-suctioning will be.
- Given her risk of aspiration, keep strict NPO and re-assess daily
- Aspiration precautions with HOB >30-45 degrees
- If sudden SOB occurs and is found to be from proximal airway atelectasis with plugging vs aspiration, then will need to bronch her and she is at high risk of intubation in that scenario - believe she is out of this window for now as she continues
to improve
- prn nebulized bronchodilators
- Regarding her AEDs, we had initially converted them to IV when she was on high flow, however now that she is on mid flow with Dobbhoff tube, we transitioned back to her home p.o. meds.
- Continue tube feeds and advance rate to goal as tolerated
- GI consult placed on 04/11 to eval for EGD vs G-tube --> I believe this pt is optimized pulmonary-kruase for procedure, given she is on room air and saturating >90-94%. She still remains at high risk given her recurrent aspiration, and this needs to
be taken into account seriously. But the current window is time seems to be appropriate given her marked improvement over the last 2 days.
- Neurochecks as needed
- Maintain MAP>65, HR goal >50
- Follow up TSH and free T4
- Maintain euglycemia with goal BG 140-180
- DVT ppx
GOC discussion by Dr. Pettit: I discussed with the patient's mother, Tanisha, that if her breathing were to get worse would they want us to put her onto a ventilator. Her mother said yes. It would be on clear how easy it would be to get her off the
ventilator if she progressed that far, but the family wants to do everything they can to keep her alive if it comes to that. I answered all of her mother's questions.
Patient is stable for transfer out of IMU to telemetry. Pulmonary service will continue to follow along. I believe she is optimized for her EGD/PEG insertion given she is on room air currently saturating greater than 90-94%, and CXR is also
improved.
Data:
CXR 04-12-2024: No acute disease of the chest. No definitive pneumonia on this plain film examination.
CXR 04-10-2024: Improving bilateral pneumonia.
CXR 04-09-2024: Severe diffuse bilateral airspace disease, progressed and likely reflects pneumonia. Developing ARDS
not excluded.
CXR 04-08-2024: Worsening bilateral pneumonitis/pneumonia.
TTE 04-11-2024:
Normal LV size and function with no regional wall motion abnormalities.
LVEF is 55 to 60% by visual estimation.
Normal diastolic function.
Normal right ventricular size and function.
No significant valvular disease.
No prior study available for comparison.
Total time spent today was 35 minutes for this encounter. Time includes reviewing laboratory test/imaging results, reviewing pertinent medical records, obtaining and reviewing medical history, performing an appropriate exam, ordering medications,
tests and procedures. Time also includes documentation of this encounter, coordinating patient care and communicating with other healthcare professionals. Total time does not include separately billed tests performed on this date of service.
Subjective Data
-
Date of Service:
Date of Service: April 12, 2024
Chief Complaint: Pulmonary Follow Up
Subjective:
Patient seen and evaluated today at bedside. She is now on room air saturating 98%. Heart rate 63 and BP 107/71. I discussed her case with her father and answered all of his questions. No acute events reported overnight, although she was
bradycardic yesterday towards the afternoon/evening and this is why she stayed in the IMU up until today.
Review of Systems
General: Other (Unable to obtain given patient's clinical status/nonverbal)
Objective Data
Data Reviewed
Vital Signs / I&O / Oxygen:
Vital Signs
Temp Pulse Resp BP Pulse Ox
97.8 F 55 20 108/73 99
04/12/24 07:41 04/12/24 09:00 04/12/24 09:00 04/12/24 08:40 04/12/24 09:10
Intake and Output
04/11/24 04/12/24 04/13/24
06:59 06:59 06:59
Intake Total 2567.5 / 2692.5 1930 / 2000 285 / 285
Output Total 1800 / 1800 250 / 250
Balance 767.5 / 892.5 1680 / 1750 285 / 285
SaO2 99
Nasal Cannula flow liters per 1
minute
Physical Exam
General: Respiratory Distress (Negative) and Comfortable
HEENT: Normocephalic and Anicteric
Cardiovascular: S1-S2 and Peripheral Edema (Negative)
Respiratory: Wheeze (Negative), Crackles (bilaterally), Rhonchi (Negative) and Non-Labored Respirations
GI: Soft, Non Distended, Non Tender and Normal Bowel Sounds
Neurology: Awake and Tremors (Negative)
Skin: Warm and Dry
Labs/Micro/Reports
Lab Data
04/12/24 03:25
04/12/24 03:25
Microbiology
04/07/24 17:06 Blood/Venous Blood Culture - Preliminary
No Growth in 4 days- Final report to follow
04/07/24 16:13 Blood/Venous Blood Culture - Preliminary
No Growth in 4 days- Final report to follow
04/07/24 15:57 Urine Urine Culture - Final
Yoly albicans
04/09/24 00:35 Urine Legionella Urinary Antigen - Final
Negative for Legionella pneumophila Serogroup 1 antigen.
A negative result does not rule out the possiblity of
Legionella infection due to other serogroups or species of
Legionella. Clinical correlation is recommended.
04/09/24 00:35 Urine Streptococcus pneumoniae Antigen (M - Final
Negative for Streptococcus pneumoniae antigen.
A negative result does not exclude infection with
Streptococcus pneumoniae. Clinical correlation is
recommended.
--- NOTE | 2024-04-12 09:20 | PTCARENOTE ---
Rec'd pt at 0730 sleeping. Pts mother at the bedside. Pt does awaken to verbal stimuli. Does occasionally moan but otherwise is non-verbal. Will intermittently grind her teeth. FRAZIER - tends to keep legs curled up but is able to straighten them.
Bilateral hands have mitts on for pt safety. Skin is pale pink wm and dry. Respirs are unlabored. Does at times tend to breathe shallow but non-labored. BS are decreased mostly at the bases. Rec'd pt on 2l nc and currently weaned to RA with sats of
96%. Montior SBrady. + pulses. Dp pulses with the doppler. VS as documented. Abd is soft with + BS. Tolerated Jevity 1.5 tube feeds at 45 ml/hr with 25 ml/hr water flush via L nare dobhoff. Placement auscultated. Purewick in place and pt is voiding
yellow urine. Turned and repositioned. Skin and mouth care given. Plan of care reviewed with pts mother. Will monitor.
--- NOTE | 2024-04-12 09:22 | PN.CDI ---
CDI
- -
CDI:
Physician Documentation Request
Admit Date: 04/07/24 19:44
Dear Doctor Wilver,
Please review the following and provide your response in the progress notes.
Clinical Indicators:
- 04/11 Pulmonary 'Acute on chronic respiratory failure...worsened CXR on 04/09, better on 04/10 s/p diuresis...due to acute CHF'
- 'CXR worsening on 04/09 with severe progressed bilateral opacities --> likely due to acute CHF'
- 40mg IV Lasix given x2
- 04/10 proBNP 1250
- 04/11 Echo EF 55-60%, 'Normal LV size and function with no regional wall motion abnormalities'
Please provide further specificity regarding the most likely type and acuity of CHF you are evaluating, treating or monitoring.
Type Acuity
Systolic Acute
Diastolic Chronic
Combined Systolic/Diastolic Acute on Chronic
Other
Use of terms such as suspected, likely, concern for, or probable (associated with a specific diagnosis that is being evaluated, monitored, or treated as if it exists) are acceptable and can be coded in the inpatient setting, when documented at the
time of discharge.
Thank you,
Ludwig Carey RN
CDI Specialist
Please use your independent medical judgment in providing your response.
[2024-04-12 09:41] LABS: TSH Reflex To Free T4 1.03 uIU/ml (0.47-4.68)
--- NOTE | 2024-04-12 11:45 | PTCARENOTE ---
Assessment is unchanged. Has tolerated RA with sats of 93-95%. Dozing intermittently when not disturbed. VS as documented. Tolerating tube feeds. Pt turned and repositioned. Skin and mouth care given. Purewick replaced. Voiding yellow urine. Parents
in and expressed desire to pursue a feeding tube (PEG). Explanations given. Drs. Gallagher and Fish updated. Will continue to monitor
[2024-04-12] MEDS: COLACE LIQUID 100 MG PO (12:10)
--- NOTE | 2024-04-12 12:53 | CM ---
CM following re: discharge planning.
Reviewed pt's chart, met with pt. pt's parents at bedside. Per chart review, pt is strict NPO, NG tube and a plan is for peg tube placement.
Pt's parents brought to me their concerns regarding peg tube management at home. Information provided. pt's parents stated they do not want to place their daughter to a snf and they would like to bring their daughter home with [employer] [facility]N and
peg tube management. Pt has home O2.
CM will make a referral to [facility] care for peg tube supplies and management when appropriate.
D/C plan: home with resumptions of [employer] [facility]N, peg tube supply and management, caregiver services and family support.
CM will follow with discharge plan updates as hospitalization progresses
--- NOTE | 2024-04-12 12:54 | W.PN.GI.CBS2 ---
Addendum entered and electronically signed by Daisy Whitten MD 04/12/24 14:17:
I saw and examined the patient.
The TONGUE CARRIER's note was reviewed and I agree with the note.
Comment: Recurrent aspiration pneumonia respiratory status and oxygen requirement have been improving. Discussed with mom yesterday and dad today and both are agreeable to proceed with PEG placement, concent taken, will schedule for EGD with PEG
placement tomorrow, already on antibiotics for pneumonia
2. Abnormal LFTs most likely related to hypotension and sepsis less likely DILI. They are trending down, hepatitis serologies are pending, ultrasound showed normal liver
Original Note:
Today's Communication / Plan
-
Pt with current concern for recurrent PNA -- 3rd admission
per staff family not currently present but interested in peg
currently wean to room air, BP stable not on pressors and moving to IMU
will have Dr. Whitten review for consent with EGD for eval of possible esophageal web
NPO in AM
US with stable liver elevation may be on basis of hypotension low flow state, med related vs other cont to trend
trend LFT's
hepatitis panel pending
reviewed with nursing staff
will follow
Assessment / Plan
-
Pt is a 48yo with hx seizures/epilepsy, cerebral palsy, ovarian CA nonverbal with admission with recurrent admission with concern for aspiration and esophageal web. Pt was initially seen in early March with noted foreign body with clear round plastic
disc in back of oropharynx with drooling and object was removed. She complete speech eval with concern for esophageal web.. EGD was discussed with family but recommended OP follow up as prior to that admission no concern for dysphagia pulm status
did not allow. She was discharged 03/22 and returned 03/23 with continued fever and PNA. She had DHT placed. she was eventually seen by speech therapy 04/08 with impaired oropharyngeal swallowing and placed in IDDSI 4 diet with mild thickened
liquids. She was discharged and per mother day after discharged had eaten breakfast then note 45 minutes rosa with gagging, shakiness and concern for recurrent aspiration. On return WBC stable but fever was up to 102.8 and CXR with
PNA/pneumonitis. Asked to see to discuss peg and EGD with eval for possible esophageal web. Pt also with elevated LFT's.
04/12/24 US abdomen The liver is normal in size, measuring 13.7 cm in length. It is normal in echogenicity. There is no focal hepatic lesion or intrahepatic biliary dilation. The gallbladder is physiologically distended with fluid and shows no
shadowing calculi or wall thickening. The common duct is normal, measuring 4 mm.
Nonvisualization of the pancreas, proximal IVC and abdominal aorta.
Simple left renal cyst
Impression:
recurrent PNA
hx Possible esophageal web seen on video swallow exam
nutrition with current DHT feedings
hx constipation regular stools with tube feeds
bradycardia
elevated LFT's
recent foreign body found in patient's oropharynx with removal
other medical problems:
Recurrent UTIs
Cerebral palsy, nonverbal
Seizure disorder
hx ovarian CA
Plan:
Pt with current concern for recurrent PNA -- 3rd admission
per staff family not currently present but interested in peg
currently wean to room air, BP stable not on pressors and moving to IMU
will have Dr. Whitten review for consent with EGD for eval of possible esophageal web
NPO in AM
US with stable liver elevation may be on basis of hypotension low flow state, med related vs other cont to trend
trend LFT's
hepatitis panel pending
reviewed with nursing staff
will follow
Subjective
Subjective
Date of Service: April 12, 2024
tolerating tube feeds, 04/10 brown stool -- per nursing staff family interested in peg
Objective
Data Reviewed
Laboratory Data:
Laboratory Results
04/12/24 03:25
04/12/24 03:25
Laboratory Results
Phosphorus 2.7 mg/dl (2.5-4.5) 04/10/24 17:33
Magnesium 1.8 mg/dl (1.6-2.3) 04/10/24 17:33
Total Bilirubin 0.3 mg/dl (0.2-1.3) 04/12/24 03:25
AST 81 U/L (14-36) H 04/12/24 03:25
ALT 78 U/L (0-35) H 04/12/24 03:25
Alkaline Phosphatase 190 U/L (38-126) H 04/12/24 03:25
Vital Signs and I&O:
Vital Signs
Temp Pulse Resp BP Pulse Ox
98.2 F 55 20 108/73 99
04/12/24 11:05 04/12/24 09:00 04/12/24 09:00 04/12/24 08:40 04/12/24 09:10
I&O
04/11/24 04/12/24 04/13/24
06:59 06:59 06:59
Intake Total 2567.5 / 2692.5 1930 / 2000 520 / 520
Output Total 1800 / 1800 250 / 250 400 / 400
Balance 767.5 / 892.5 1680 / 1750 120 / 120
Physical Exam
Physical Exam
HEENT: Anicteric and Moist mucous membranes
Cardiology: Other (bradicardia )
Pulmonary: Clear
GI: Soft, Non Distended, Non Tender and Other (DHT in place)
Extremities: No Edema
Neuro: Other (non verbal )
--- NOTE | 2024-04-12 13:00 | PTCARENOTE ---
Report called to [address] [place]. Pt to be transferred to [id number]
[2024-04-12] MEDS: FLUSH (NSS) 1 FLUSH IV (13:18)
--- NOTE | 2024-04-12 13:30 | PTCARENOTE ---
Pt transferred via bed to RM [id number]
[2024-04-12] MEDS: FEMARA 2.5 MG PO (21:50)
[2024-04-12] MEDS: AUGMENTIN 250 MG/5 ML 875 MG TUBE (21:50)
[2024-04-12] MEDS: SINGULAIR 10 MG PO (21:53)
[2024-04-12] MEDS: FLUSH (NSS) 2 FLUSH IV (21:55)
[2024-04-12] MEDS: NON-FORMULARY ITEM 4 MG PO (21:56)
[2024-04-13] VITALS (10 sets, daily range): BP systolic 105–160; BP diastolic 59–91; BMI 27.3
[2024-04-13] MEDS: HEPARIN 5000 UNITS SC ×4 (00:14→23:53)
[2024-04-13] MEDS: TRILEPTAL 600 MG PO (08:56)
[2024-04-13] MEDS: VISBIOME 1 CAP PO (08:56)
[2024-04-13] MEDS: AUGMENTIN 250 MG/5 ML 875 MG TUBE ×2 (08:57→21:08)
[2024-04-13] MEDS: ProAmatine 15 MG PO (08:57)
[2024-04-13] MEDS: VITAMIN C 500 MG PO (08:57)
[2024-04-13] MEDS: ONFI 10 MG PO (08:57)
[2024-04-13] MEDS: SOLU-CORTEF 25 MG IV ×2 (08:58→21:09)
[2024-04-13] MEDS: DESENEX/MITRAZOL/ZEASORB 1 APPLIC TOPICAL ×2 (09:00→21:10)
--- NOTE | 2024-04-13 10:02 | W.PN.PUL.V3 ---
Today's Communication / Plan
-
Respiratory status much improved
Finite course of antibiotics
Supplemental oxygen if needed-currently on room air
Aspiration precautions
Gastrostomy tube placement
Pulmonary will sign off-please call with questions
Assessment
-
Assessment: 48-year-old female with a past medical history of intractable epilepsy with recent hospitalization from 03/2304/03/2024 due to sepsis from suspected aspiration pneumonia, with GI consulted due to history of esophageal webs however due
to anesthesia risk no endoscopy was performed. Patient discharged to home with home care on 04/03 on Augmentin for an additional 3 days. She now presents with low pulse ox. She is chronically on 1 L/min. Apparently patient had twitching that
started today. In triage she was febrile to 102.8 �F, heart rate 69, BP 158/132, she was saturating 96% on 4 L/min. Labs showed normal WBC at 8.2, sodium 146, STEVE with creatinine 1.5, lactate 2.9, calcium 12.8, elevated LFTs with ALP 269, AST 150,
80 LT 140, urinalysis showing 16�20 urine WBC with negative nitrite and trace LE, and urine culture was collected as well as blood culture. CXR showed bilateral infiltrate/opacities, but it was improved compared to recent CXR from 03/29/2024. In
the ER she was given Tylenol, Zosyn and IV fluids with NS 0.9% x2L. She was admitted to the hospitalist service on 4 L/min, and was continued on antibiotics with cefepime/flagyl. On the morning of 04/08, her oxygen requirements increased with
respiratory distress and hypotension. She was transferred to the ICU for further care and critical care services consulted for additional management/recommendations.
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
Impression:
#Acute on chronic respiratory failure with hypoxia due to suspected bilateral pneumonia with aspiration - worsened CXR on 04/09, better on 04/10 s/p diuresis and more improved per today's CXR (04/12) - hence I believe this is due to acute CHF and not
ARDS in setting of atelectasis
#Febrile illness due to sepsis (without shock)
#Hypotension - due to sepsis however her BP improved with NS bolus x2 and she never required vasopressors - BP now improved
#Acute kidney injury with baseline creatinine of approximately 0.6
#Epilepsy on multiple AEDs
#Chronic dysphagia with Hx of esophageal webs
#Hx of recurrent UTI
#Chronic hypotension on midodrine
Plan:
Respiratory status improved
Supplemental oxygen as needed-currently on room air-99% saturation
Nebulizers if needed
Aspiration precautions
Head of bed elevation
Chest x-ray 04/12/2024-NAD, no definitive pneumonia
Wean hydrocortisone as previously outlined
Cultures reviewed
Finite course of Augmentin
GI following
Gastrostomy tube placement 04/13/2024
DVT prophylaxis-on subcu heparin
Patient stable on room air-pulmonary will sign off-please call with questions
Reviewed with father at the bedside
Data:
CXR 04-12-2024: No acute disease of the chest. No definitive pneumonia on this plain film examination.
CXR 04-10-2024: Improving bilateral pneumonia.
CXR 04-09-2024: Severe diffuse bilateral airspace disease, progressed and likely reflects pneumonia. Developing ARDS
not excluded.
CXR 04-08-2024: Worsening bilateral pneumonitis/pneumonia.
TTE 04-11-2024:
Normal LV size and function with no regional wall motion abnormalities.
LVEF is 55 to 60% by visual estimation.
Normal diastolic function.
Normal right ventricular size and function.
No significant valvular disease.
No prior study available for comparison.
Subjective Data
-
Date of Service:
Date of Service: April 13, 2024
Chief Complaint: Pulmonary Follow Up and Dyspnea Follow Up
Subjective:
On room air, father at the bedside, no shortness of breath, no cough,
Review of Systems
General: Other (Per HPI )
Objective Data
Data Reviewed
Vital Signs / I&O:
Vital Signs
Temp Pulse Resp BP Pulse Ox
97.1 F 58 14 149/69 97
04/13/24 07:15 04/13/24 08:57 04/13/24 07:15 04/13/24 08:57 04/13/24 07:15
Intake and Output
04/12/24 04/13/24 04/14/24
06:59 06:59 06:59
Intake Total 1930 / 1999 1015 / 1015
Output Total 250 / 250 650 / 650
Balance 1680 / 1750 365 / 365
SaO2: 97
Nasal Cannula flow liters per minute: 1
Physical Exam
General: Respiratory Distress (Negative) and Comfortable
HEENT: Normocephalic and Anicteric
Cardiovascular: Regular Rhythm and Peripheral Edema (Negative)
Respiratory: Wheeze (Negative), Crackles (bilaterally), Rhonchi (Negative), Non-Labored Respirations, Accessory Resp Muscle Use (n) and Stridor
GI: Soft, Non Distended, Non Tender and Normal Bowel Sounds
Neurology: Awake and Tremors (Negative)
Skin: Warm, Dry, Good Color, Cyanosis (n) and Jaundice (n)
Labs/Micro/Reports
Microbiology
04/07/24 17:06 Blood/Venous Blood Culture - Final
No Growth - Final Report
04/07/24 16:13 Blood/Venous Blood Culture - Final
No Growth - Final Report
[2024-04-13 10:06] LABS: Hematocrit 34.2 % (37.0-47.0); Hemoglobin 11.7 g/dL (12.0-16.0); Mean Corp Hgb Conc. 34.2 g/dL (33.0-37.0); Mean Corpuscular Hgb 29.3 pg (27.0-31.0); Mean Corpuscular Volume 85.7 fL (81.0-99.0); Mean Platelet Volume 11.9 fL (7.4-10.4); Platelet Count 174 10^3/uL (130-400); Red Blood Cell Count 3.99 10^6/uL (4.20-5.40); Red Cell Dist. Width 13.7 % (11.5-14.5); White Blood Cell Count 8.4 10^3/uL (4.8-10.8)
[2024-04-13 10:35] LABS: ALT (SGPT) 83 U/L (0-35); AST (SGOT) 91 U/L (14-36); Albumin 2.8 g/dl (3.5-5.0); Alkaline Phosphatase 185 U/L (38-126); Blood Urea Nitrogen 27 mg/dl (7-17); Calcium 9.3 mg/dl (8.4-10.2); Carbon Dioxide 26 mmol/L (22-30); Chloride 104 mmol/L (98-107); Estimated Creatinine Clearance 89 ml/min; Glucose 93 mg/dl (70-99); Potassium 3.6 mmol/L (3.5-5.1); Sodium 136 mmol/L (135-145); Total Bilirubin 0.3 mg/dl (0.2-1.3); Total Protein 5.7 g/dl (6.3-8.2); eGFR > 60.00
--- NOTE | 2024-04-13 14:33 | W.PN.HOSP.TC ---
Today's Communication/Plan
-
Ok to use PEG for meds
PEG feeds starting tomorrow
VSE in am
DC planning
Assessment / Plan
Assessment / Plan
HPI: 48-year-old with past medical history for seizure, cerebral palsy presented with shortness of breath. She was noted to be lethargic and jittery. History obtained primarily from family. Patient lives with her parents. She was noted to have
seizure activity with fever at home.
Patient was hypoxic on her usual 1 L of home oxygen. Patient received fluids and Zosyn in ER. Admitted for further management .
#Sepsis
#Acute on chronic respiratory failure with hypoxia due to suspected bilateral pneumonia with aspiration
# Recurrent aspiration
# Chronic dysphagia
- Improved oxygenation-currently on RA today
- Switched antibiotics to oral Augmentin for 3 more days
- Keep strict NPO for now
- Start PEG feeds from tomorrow
- IV fluids for tonight
-Aspiration precautions with HOB >30-45 degrees
#Chronic dysphagia
# History for esophageal web
-She is usually on a pur�ed diet with nectar thickened liquids
- Speech to eval . They had recommended VSE this admission -will request one for tomorrow
# Sinus braycardia -no pauses noted. Hemodynamically stable. Normal EF with no valvular heart disease noted. No medication to account for. TSH ok. Resolved. Continue to monitor.
#Acute Kidney Injury
-Suspected prerenal; poor PO intake reported at home
- Normalized Cr
#Mild transaminitis from infection
-Possibly from infection/sepsis -- trend LFTs -improving
#Acute on chronic hypotension
-Continue midodrine 15 mg 3 times daily with parameters
#Cerebral Palsy
#Seizure Disorder
- Stable.
- Back on her home AEDs
#History of Ovarian Cancer
- S/p surgery and then hormonal therapy.
- Has completed treatment x 5 years.
- Remains on letrozole at family preference.
#Functional quadriplegia due to cerebral palsy
- Dependent on family for all care
#DVT Prophylaxis: Heparin Subq
#Code Status: Full
Nutrition - will place NG tube once off of high flow O2 and cw speech therapy
DW RN
DW parents at bedside
Anticipated Discharge: 24 - 48 hours
Subjective/Interval History
-
Date of Service: April 13, 2024
Back from PEG tube insertion
Objective Data
-
Labs:
Laboratory Results
04/13/24
09:35
WBC 8.4
Hgb 11.7 L
Hct 34.2 L
Plt Count 174
Sodium 136
Potassium 3.6
Chloride 104
Carbon Dioxide 26
BUN 27 H
Creatinine 0.6
Glucose 93
Calcium 9.3
Total Bilirubin 0.3
AST 91 H
ALT 83 H
Alkaline Phosphatase 185 H
Vital Signs:
Vital Signs
Temp Pulse Resp BP Pulse Ox
97.3 F 55 14 144/85 96
04/13/24 13:15 04/13/24 13:15 04/13/24 13:15 04/13/24 13:15 04/13/24 13:15
I&O
04/12/24 04/13/24 04/14/24
06:59 06:59 06:59
Intake Total 1929 / 1999 1015 / 1015
Output Total 250 / 250 650 / 650
Balance 1680 / 1750 365 / 365
Review of Systems
-
Unable to obtain full review of systems at this time due to: Patient Non-verbal
Physical Exam
-
General: No Apparent Distress
HEENT: Moist Mucous Membranes
Respiratory: Clear to Auscultation (anteriorly)
Cardiac: Regular Rhythm and S1/S2
GI: Soft and Peg Tube (no bleeding)
Neuro: Awake and Alert
Psych: Calm
Data Reviewed
-
Labs: Labs Reviewed by me
--- NOTE | 2024-04-13 15:13 | CM ---
UGI endoscopy and peg placement on this date. Discharge Plan of Care: Parents will take patient home. Will resume [facility] and caregivers.
[2024-04-13] MEDS: NSS 1000 IV (15:51)
[2024-04-13] MEDS: ProAmatine PO (17:40)
[2024-04-13 21:05] LABS: Hepatitis B Surface Antigen Negative (Negative)
[2024-04-13] MEDS: SINGULAIR 10 MG TUBE (21:08)
[2024-04-13] MEDS: ONFI 10 MG TUBE (21:08)
[2024-04-13] MEDS: FEMARA 2.5 MG TUBE (21:08)
[2024-04-13] MEDS: TRILEPTAL 600 MG TUBE (21:09)
[2024-04-13 21:24] LABS: Hepatitis B Core Ab, Total Negative (Negative); Hepatitis B Surface Antibody Negative; Hepatitis C Antibody Negative (Negative)
[2024-04-13] MEDS: NON-FORMULARY ITEM TUBE (21:42)
[2024-04-13] MEDS: ONFI PO (21:42)
[2024-04-13] MEDS: TRILEPTAL PO (21:42)
[2024-04-13 22:13] LABS: Hepatitis A Antibody, Total Negative (Negative)
[2024-04-14 04:00] VITALS: BP 134/66
[2024-04-14 05:59] VITALS: BMI 27.1
--- NOTE | 2024-04-14 06:12 | W.PN.GI.CBS2 ---
Today's Communication / Plan
-
See assessment and plan for details.
Assessment / Plan
-
1. Dysphagia: Now status post PEG tube, overall doing well. Continue local care, is okay to start tube feedings per nutrition recommendations. We will sign off for now, please call back with any further questions.
Subjective
Subjective
Date of Service: April 14, 2024
No events overnight per patient's mother.
Objective
Data Reviewed
Laboratory Data:
Laboratory Results
04/13/24 09:35
04/13/24 09:35
Laboratory Results
Phosphorus 2.7 mg/dl (2.5-4.5) 04/10/24 17:33
Magnesium 1.8 mg/dl (1.6-2.3) 04/10/24 17:33
Total Bilirubin 0.3 mg/dl (0.2-1.3) 04/13/24 09:35
AST 91 U/L (14-36) H 04/13/24 09:35
ALT 83 U/L (0-35) H 04/13/24 09:35
Alkaline Phosphatase 185 U/L (38-126) H 04/13/24 09:35
Vital Signs and I&O:
Vital Signs
Temp Pulse Resp BP Pulse Ox
97.3 F 70 16 134/66 93
04/14/24 03:21 04/14/24 04:00 04/14/24 03:21 04/14/24 04:00 04/14/24 03:21
I&O
04/12/24 04/13/24 04/14/24
06:59 06:59 06:59
Intake Total 1929 / 1999 1015 / 1015
Output Total 250 / 250 650 / 650
Balance 1680 / 1750 365 / 365
Physical Exam
Physical Exam
General: NAD
Abdomen: normal bowel sounds, soft, no tenderness, no masses or bruits, no ascites, PEG site clean, dry and intact, bumper at 5 cm
--- NOTE | 2024-04-14 08:30 | PTOTSP ---
Speech Language Pathology
VIDEOFLUOROSCOPIC SWALLOWING EXAMINATION (VSE) completed. Pt with VSE completed 03/20/24 on recent admission. Deep penetration of thin liquids with no aspiration noted. Recommendations were for baseline diet of IDDSI Level 4 (Puree) and Mildly
Thick Liquids. Pt readmitted to the hospital now, initially with seizure activity and fever. Pt with sepsis and suspected B PNA with aspiration. Pt was seen bedside by ETIOLOGIST 04/08/24 and recommended baseline diet. That day, decreased Sp02 noted and
pt moved to ICU. Speech orders were not continued upon transfer and plan was PEG vs comfort feeds, as MD suspected aspiration of P.O. as reason for respiratory issues. Pt received PEG 04/13, and VSE ordered at this time.
View somewhat difficult given positioning. Initially refusing P.O. from ETIOLOGIST, but accepted from mother with encouragement. Given decreased participation, trialed: 1 tsp mildly thick liquids, 1 straw sip mildly thick liquids, 1 tsp puree, and
consecutive straw sips of thin liquids. Pt presents with mod oral dysphagia and mild pharyngeal dysphagia, similar to recent study. No significant pharyngeal residue noted. Supraglottic penetration (PAS 3) noted with thin liquids via consecutive
straw sips. No other penetration/aspiration noted with trial provided.
Significant residue noted in cervical esophagus. This was not noted to backflow during study, but there is risk for this. Aspiration could also occur based on positioning/level of alertness.
Recommend:
(1) Discussion between family and MD to determine plan moving forward for P.O., weighing potential risks. Per mother, pt enjoys eating
(2) Would consider IDDSI Level 4 (Puree) and Mildly Thick liquids (pt's baseline diet)
(3) Aspiration precautions: sit upright, liquids via tsp or straw, slow rate, oral care post P.O. intake
(4) Meds crushed in puree or via PEG
(5) ETIOLOGIST to continue to follow
[2024-04-14 08:50] VITALS: BP 121/73
[2024-04-14] MEDS: AUGMENTIN 250 MG/5 ML 875 MG TUBE ×2 (09:50→20:20)
[2024-04-14] MEDS: TRILEPTAL 600 MG TUBE ×2 (09:51→20:20)
[2024-04-14] MEDS: ONFI 10 MG TUBE ×2 (09:51→20:21)
[2024-04-14] MEDS: VITAMIN C 500 MG TUBE (09:51)
[2024-04-14] MEDS: VISBIOME 1 CAP TUBE (09:52)
[2024-04-14] MEDS: HEPARIN 5000 UNITS SC (09:52)
[2024-04-14] MEDS: ProAmatine 15 MG TUBE ×2 (10:03→17:40)
[2024-04-14] MEDS: DESENEX/MITRAZOL/ZEASORB 1 APPLIC TOPICAL ×2 (10:03→20:30)
--- NOTE | 2024-04-14 11:14 | W.PN.HOSP.TC ---
Addendum entered and electronically signed by Horacio Gallagher MD 04/14/24 12:35:
Tube feeds -length of need for enteral feeds is greater than 90 days due to pharyngeal dysphagia and aspiration pneumonia'.
Original Note:
Today's Communication/Plan
-
.Start on tube feeds
Assessment / Plan
Assessment / Plan
HPI: 48-year-old with past medical history for seizure, cerebral palsy presented with shortness of breath. She was noted to be lethargic and jittery. History obtained primarily from family. Patient lives with her parents. She was noted to have
seizure activity with fever at home.
Patient was hypoxic on her usual 1 L of home oxygen. Patient received fluids and Zosyn in ER. Admitted for further management .
#Sepsis
#Acute on chronic respiratory failure with hypoxia due to suspected bilateral pneumonia with aspiration
# Recurrent aspiration
# Chronic dysphagia
- currently on RA today
- Switched antibiotics to oral Augmentin -stop after today's dose
- VSE done today - IDDSI 4 with mildly thick liquids
- Start PEG feeds today
-Aspiration precautions with HOB >30-45 degrees
#Chronic dysphagia
# History for esophageal web
-She is usually on a pur�ed diet with nectar thickened liquids
- Recs from today's VSE noted.
#Acute Kidney Injury
-Suspected prerenal; poor PO intake reported at home
- Normalized Cr
#Mild transaminitis from infection
-Possibly from infection/sepsis -- trend LFTs -improving
#Acute on chronic hypotension
-Continue midodrine 15 mg 3 times daily with parameters
#Cerebral Palsy
#Seizure Disorder
- Stable.
- Back on her home AEDs
#History of Ovarian Cancer
- S/p surgery and then hormonal therapy.
- Has completed treatment x 5 years.
- Remains on letrozole at family preference.
#Functional quadriplegia due to cerebral palsy
- Dependent on family for all care
#DVT Prophylaxis: Heparin Subq
#Code Status: Full
Nutrition - will place NG tube once off of high flow O2 and cw speech therapy
DW mother at bedside
Start on tube feeds and if she tolerates tube feeds DC home tomorrow
Anticipated Discharge: Within 24 hours
Subjective/Interval History
-
Date of Service: April 14, 2024
now s/p PEG tube.
This morning patient is alert . No overnight events. Mom at bedside.
Objective Data
-
Vital Signs:
Vital Signs
Temp Pulse Resp BP Pulse Ox
98.0 F 68 10 110/68 95
04/14/24 10:00 04/14/24 10:03 04/14/24 08:50 04/14/24 10:03 04/14/24 08:50
I&O
04/13/24 04/14/24 04/15/24
06:59 06:59 06:59
Intake Total 1015 / 1015
Output Total 650 / 650
Balance 365 / 365
Review of Systems
-
Unable to obtain full review of systems at this time due to: Patient Non-verbal
Physical Exam
-
General: No Apparent Distress
Respiratory: Clear to Auscultation (anteriroly) and Non Labored Respirations; Negative Accessory Resp Muscle Use
Cardiac: Regular Rhythm and S1/S2
GI: Soft and Peg Tube (no bleeding)
Neuro: Awake and Alert
Psych: Calm
[2024-04-14 11:38] VITALS: BP 141/87
[2024-04-14 15:15] VITALS: BP 97/63
--- NOTE | 2024-04-14 15:29 | CM ---
Peg feeds initiated today. Spoke with mother and discussed resumption of [facility] VN and feed training by Tuan in the home. Not scheduled as yet. [facility] will provide feeds and equipment. Documentation faxed. [employer] has since changed
orders. Attending will write new script. [facility] notified. They are unable to have feeds and equipment delivered this weekend. Too late for Wednesday and no deliveries on Wednesday. Will proceed on Wednesday.
[2024-04-14] MEDS: HEPARIN SC (17:30)
[2024-04-14 17:39] LABS: Glucose - Point of Care 112 mg/dl (70-99)
[2024-04-14 20:00] VITALS: BP 152/84
[2024-04-14] MEDS: SINGULAIR 10 MG TUBE (20:21)
[2024-04-14] MEDS: FEMARA 2.5 MG TUBE (20:21)
[2024-04-14] MEDS: NON-FORMULARY ITEM 4 MG TUBE (21:46)
[2024-04-14 23:34] VITALS: BP 123/71
[2024-04-15] MEDS: HEPARIN 5000 UNITS SC ×3 (00:31→15:45)
[2024-04-15 00:40] LABS: Glucose - Point of Care 103 mg/dl (70-99)
[2024-04-15 05:50] VITALS: BMI 26.8
[2024-04-15 06:32] LABS: Glucose - Point of Care 108 mg/dl (70-99)
[2024-04-15 07:15] VITALS: BP 128/76
[2024-04-15] MEDS: VITAMIN C 500 MG TUBE (08:43)
[2024-04-15] MEDS: ONFI 10 MG TUBE ×2 (08:43→20:34)
[2024-04-15] MEDS: ProAmatine 15 MG TUBE ×2 (08:43→17:21)
[2024-04-15] MEDS: TRILEPTAL 600 MG TUBE ×2 (08:43→20:34)
[2024-04-15] MEDS: VISBIOME 1 CAP TUBE (08:43)
[2024-04-15] MEDS: DESENEX/MITRAZOL/ZEASORB 1 APPLIC TOPICAL ×2 (08:50→21:55)
[2024-04-15 11:06] LABS: ALT (SGPT) 145 U/L (0-35); AST (SGOT) 153 U/L (14-36); Albumin 2.8 g/dl (3.5-5.0); Alkaline Phosphatase 152 U/L (38-126); Blood Urea Nitrogen 17 mg/dl (7-17); Calcium 8.9 mg/dl (8.4-10.2); Carbon Dioxide 26 mmol/L (22-30); Chloride 101 mmol/L (98-107); Estimated Creatinine Clearance 88 ml/min; Glucose 110 mg/dl (70-99); Magnesium 1.6 mg/dl (1.6-2.3); Phosphorus 3.2 mg/dl (2.5-4.5); Potassium 3.3 mmol/L (3.5-5.1); Sodium 132 mmol/L (135-145); Total Bilirubin 0.4 mg/dl (0.2-1.3); Total Protein 5.6 g/dl (6.3-8.2); eGFR > 60.00
[2024-04-15 11:10] VITALS: BP 110/66
[2024-04-15 12:11] LABS: Glucose - Point of Care 125 mg/dl (70-99)
--- NOTE | 2024-04-15 14:58 | W.PN.HOSP.TC ---
Today's Communication/Plan
-
cw TF
Assessment / Plan
Assessment / Plan
HPI: 48-year-old with past medical history for seizure, cerebral palsy presented with shortness of breath. She was noted to be lethargic and jittery. History obtained primarily from family. Patient lives with her parents. She was noted to have
seizure activity with fever at home.
Patient was hypoxic on her usual 1 L of home oxygen. Patient received fluids and Zosyn in ER. Admitted for further management .
#Sepsis
#Acute on chronic respiratory failure with hypoxia due to suspected bilateral pneumonia with aspiration
# Recurrent aspiration
# Chronic dysphagia
- currently on RA today
- Finished abx
- VSE done 04/14 - IDDSI 4 with mildly thick liquids
- Started PEG feeds- at 30ml/hr ;goal 45ml/hr
-Aspiration precautions with HOB >30-45 degrees
#Chronic dysphagia
# History for esophageal web
-She is usually on a pur�ed diet with nectar thickened liquids
- Recs from VSE noted.
#Acute Kidney Injury
-Suspected prerenal; poor PO intake reported at home
- Normalized Cr
#Hypokalemia -replete
#Mild transaminitis from infection
-Possibly from infection/sepsis -- trend LFTs -improving
#Acute on chronic hypotension
-Continue midodrine 15 mg 3 times daily with parameters
#Cerebral Palsy
#Seizure Disorder
- Stable.
- Back on her home AEDs
#History of Ovarian Cancer
- S/p surgery and then hormonal therapy.
- Has completed treatment x 5 years.
- Remains on letrozole at family preference.
#Functional quadriplegia due to cerebral palsy
- Dependent on family for all care
#DVT Prophylaxis: Heparin Subq
#Code Status: Full
Nutrition - cw TF
Watch for any spike of fevers
DW father at bedside
Anticipated Discharge: > 48 hours
Subjective/Interval History
-
Date of Service: April 15, 2024
patient has been more sleepy today than yesterday according to the father at bedside.
Objective Data
-
Labs:
Laboratory Results
04/15/24
10:38
Sodium 132 L
Potassium 3.3 L
Chloride 101
Carbon Dioxide 26
BUN 17
Creatinine 0.6
Glucose 110 H
Calcium 8.9
Total Bilirubin 0.4
AST 153 H
ALT 145 H
Alkaline Phosphatase 152 H
Vital Signs:
Vital Signs
Temp Pulse Resp BP Pulse Ox
99.6 F 79 18 110/66 93
04/15/24 11:10 04/15/24 11:10 04/15/24 11:10 04/15/24 11:10 04/15/24 11:10
Review of Systems
-
Unable to obtain full review of systems at this time due to: Patient Non-verbal
Physical Exam
-
General: No Apparent Distress
HEENT: Moist Mucous Membranes
Respiratory: Non Labored Respirations; Negative Accessory Resp Muscle Use
Cardiac: Regular Rhythm and S1/S2
GI: Soft and Peg Tube
Neuro: Other (SLEEPING)
[2024-04-15 15:05] VITALS: BP 117/70
[2024-04-15] MEDS: KCL ELIXIR 40 MEQ TUBE (15:44)
[2024-04-15 18:18] LABS: Glucose - Point of Care 122 mg/dl (70-99)
[2024-04-15 19:39] VITALS: BP 130/92
[2024-04-15] MEDS: FEMARA 2.5 MG TUBE (21:55)
[2024-04-15] MEDS: NON-FORMULARY ITEM 4 MG TUBE (21:56)
[2024-04-15] MEDS: SINGULAIR 10 MG TUBE (21:56)
[2024-04-15 23:10] VITALS: BP 99/60
[2024-04-15 23:43] LABS: Glucose - Point of Care 119 mg/dl (70-99)
[2024-04-16] MEDS: HEPARIN 5000 UNITS SC ×4 (00:07→23:05)
[2024-04-16 03:55] VITALS: BP 125/63
[2024-04-16 04:46] VITALS: BP 125/63
[2024-04-16 06:00] VITALS: BMI 27.4
[2024-04-16 06:18] LABS: Mean Corp Hgb Conc. 34.4 g/dL (33.0-37.0); Mean Corpuscular Hgb 29.6 pg (27.0-31.0); Mean Corpuscular Volume 86.3 fL (81.0-99.0); Mean Platelet Volume 11.5 fL (7.4-10.4); Platelet Count 190 10^3/uL (130-400); Red Blood Cell Count 3.71 10^6/uL (4.20-5.40); Red Cell Dist. Width 14.7 % (11.5-14.5); White Blood Cell Count 10.1 10^3/uL (4.8-10.8)
[2024-04-16 06:41] LABS: ALT (SGPT) 150 U/L (0-35); AST (SGOT) 132 U/L (14-36); Albumin 2.6 g/dl (3.5-5.0); Alkaline Phosphatase 146 U/L (38-126); Blood Urea Nitrogen 16 mg/dl (7-17); Calcium 8.9 mg/dl (8.4-10.2); Carbon Dioxide 25 mmol/L (22-30); Chloride 102 mmol/L (98-107); Estimated Creatinine Clearance 89 ml/min; Glucose 106 mg/dl (70-99); Potassium 4.3 mmol/L (3.5-5.1); Sodium 132 mmol/L (135-145); Total Bilirubin 0.4 mg/dl (0.2-1.3); Total Protein 5.4 g/dl (6.3-8.2); eGFR > 60.00
[2024-04-16 07:15] VITALS: BP 133/107
[2024-04-16] MEDS: ProAmatine TUBE ×2 (07:48→18:12)
[2024-04-16 07:55] LABS: Glucose - Point of Care 143 mg/dl (70-99)
[2024-04-16] MEDS: MIRALAX 17 GRAMS TUBE (08:17)
[2024-04-16] MEDS: ONFI 10 MG TUBE ×2 (08:19→21:30)
[2024-04-16] MEDS: VISBIOME 1 CAP TUBE (08:19)
[2024-04-16] MEDS: VITAMIN C 500 MG TUBE (08:19)
[2024-04-16] MEDS: TRILEPTAL 600 MG TUBE ×2 (08:19→21:30)
[2024-04-16] MEDS: DESENEX/MITRAZOL/ZEASORB 1 APPLIC TOPICAL ×2 (08:49→21:28)
[2024-04-16 09:12] LABS: Urine Albumin Trace (Neg - Trace); Urine Bilirubin Negative (Negative); Urine Character Clear (Clear); Urine Color Yellow; Urine Glucose Negative (Negative); Urine Ketone Negative (Negative); Urine Leukocyte Negative (Negative); Urine Nitrite Negative (Negative); Urine Occult Blood Negative (Negative); Urine Urobilinogen Negative (Neg - 1+)
[2024-04-16 12:10] LABS: Glucose - Point of Care 94 mg/dl (70-99)
[2024-04-16 15:10] VITALS: BP 107/72
--- NOTE | 2024-04-16 15:30 | W.PN.HOSP.TC ---
Addendum entered and electronically signed by Horacio Gallagher MD 04/20/24 16:35:
Sepsis with associated acute organ dysfunction,
Original Note:
Today's Communication/Plan
-
DC planning
Assessment / Plan
Assessment / Plan
HPI: 48-year-old with past medical history for seizure, cerebral palsy presented with shortness of breath. She was noted to be lethargic and jittery. History obtained primarily from family. Patient lives with her parents. She was noted to have
seizure activity with fever at home.
Patient was hypoxic on her usual 1 L of home oxygen. Patient received fluids and Zosyn in ER. Admitted for further management .
#Sepsis
#Acute on chronic respiratory failure with hypoxia due to suspected bilateral pneumonia with aspiration
# Recurrent aspiration
# Chronic dysphagia
- currently on RA
- Finished abx
- VSE done 04/14 - IDDSI 4 with mildly thick liquids
- Started PEG feeds- at 45ml/hr which is her goal rate
-Aspiration precautions with HOB >30-45 degrees
#Chronic dysphagia
# History for esophageal web
-She is usually on a pur�ed diet with nectar thickened liquids
- Recs from VSE noted.
#Acute Kidney Injury
-Suspected prerenal; poor PO intake reported at home
- Normalized Cr
#Mild transaminitis from infection
-Possibly from infection/sepsis -- trend LFTs -improving
#Acute on chronic hypotension
-Continue midodrine 15 mg 3 times daily with parameters
#Cerebral Palsy
#Seizure Disorder
- Stable.
- Back on her home AEDs
#History of Ovarian Cancer
- S/p surgery and then hormonal therapy.
- Has completed treatment x 5 years.
- Remains on letrozole at family preference.
#Functional quadriplegia due to cerebral palsy
- Dependent on family for all care
#DVT Prophylaxis: Heparin Subq
#Code Status: Full
Nutrition - cw TF
DW father at bedside
DC in am once TF is set up at home
Anticipated Discharge: Within 24 hours
Subjective/Interval History
-
Date of Service: April 16, 2024
Patient is bit more alert according to father at bedside. No oral secretions noted. Looks comfortable.
Objective Data
-
Labs:
Laboratory Results
04/16/24
06:01
WBC 10.1
Hgb 11.0 L
Hct 32.0 L
Plt Count 190
Sodium 132 L
Potassium 4.3 D
Chloride 102
Carbon Dioxide 25
BUN 16
Creatinine 0.5 L
Glucose 106 H
Calcium 8.9
Total Bilirubin 0.4
AST 132 H
ALT 150 H
Alkaline Phosphatase 146 H
Vital Signs:
Vital Signs
Temp Pulse Resp BP Pulse Ox
99.3 F 93 16 107/72 94
04/16/24 15:10 04/16/24 15:10 04/16/24 15:10 04/16/24 15:10 04/16/24 15:10
I&O
04/15/24 04/16/24 04/17/24
06:59 06:59 06:59
Intake Total 620 / 620 750 / 750
Balance 620 / 620 750 / 750
Review of Systems
-
Unable to obtain full review of systems at this time due to: Patient Non-verbal
Physical Exam
-
General: No Apparent Distress
HEENT: Moist Mucous Membranes
Respiratory: Clear to Auscultation (anteriorly)
Cardiac: Regular Rhythm and S1/S2
GI: Soft and Peg Tube
Neuro: Awake and Alert
Psych: Calm
Data Reviewed
-
Labs: Labs Reviewed by me
[2024-04-16 17:51] LABS: Glucose - Point of Care 118 mg/dl (70-99)
[2024-04-16] MEDS: SINGULAIR 10 MG TUBE (21:29)
[2024-04-16] MEDS: FEMARA 2.5 MG TUBE (21:30)
[2024-04-16] MEDS: NON-FORMULARY ITEM 4 MG TUBE (21:31)
[2024-04-16 23:23] VITALS: BP 111/89
[2024-04-17 00:16] LABS: Glucose - Point of Care 122 mg/dl (70-99)
[2024-04-17 04:53] VITALS: BMI 26.9
[2024-04-17 04:59] LABS: Hematocrit 31.2 % (37.0-47.0); Mean Corp Hgb Conc. 35.3 g/dL (33.0-37.0); Mean Corpuscular Hgb 29.6 pg (27.0-31.0); Mean Corpuscular Volume 83.9 fL (81.0-99.0); Mean Platelet Volume 11.7 fL (7.4-10.4); Platelet Count 190 10^3/uL (130-400); Red Blood Cell Count 3.72 10^6/uL (4.20-5.40); White Blood Cell Count 8.7 10^3/uL (4.8-10.8)
[2024-04-17 05:27] LABS: ALT (SGPT) 147 U/L (0-35); AST (SGOT) 132 U/L (14-36); Albumin 2.8 g/dl (3.5-5.0); Alkaline Phosphatase 164 U/L (38-126); Blood Urea Nitrogen 15 mg/dl (7-17); Calcium 9.2 mg/dl (8.4-10.2); Carbon Dioxide 27 mmol/L (22-30); Chloride 97 mmol/L (98-107); Estimated Creatinine Clearance 88 ml/min; Glucose 122 mg/dl (70-99); Potassium 4.7 mmol/L (3.5-5.1); Sodium 130 mmol/L (135-145); Total Bilirubin 0.3 mg/dl (0.2-1.3); Total Protein 5.5 g/dl (6.3-8.2); eGFR > 60.00
[2024-04-17 07:05] LABS: Glucose - Point of Care 143 mg/dl (70-99)
[2024-04-17 07:15] VITALS: BP 91/58
--- NOTE | 2024-04-17 08:30 | W.PN.HOSP.TC ---
Today's Communication/Plan
-
Started Tamiflu for fever, positive flu test
Discharge planning
Assessment / Plan
Assessment / Plan
Physical Exam
General: No Apparent Distress
HEENT: Moist Mucous Membranes
Respiratory: Clear to Auscultation (anteriorly)
Cardiac: Regular Rhythm and S1/S2
GI: Soft and Peg Tube
Neuro: Awake and Alert
Psych: Calm
Assessment/Plan
HPI: 48-year-old with past medical history for seizure, cerebral palsy presented with shortness of breath. She was noted to be lethargic and jittery. History obtained primarily from family. Patient lives with her parents. She was noted to have
seizure activity with fever at home.
Patient was hypoxic on her usual 1 L of home oxygen. Patient received fluids and Zosyn in ER. Admitted for further management .
#Sepsis
#Acute on chronic respiratory failure with hypoxia due to suspected bilateral pneumonia with aspiration
# Recurrent aspiration
# Chronic dysphagia
- currently on RA
- Finished abx
- VSE done 04/14 - IDDSI 4 with mildly thick liquids
- Started PEG feeds-continue
-Aspiration precautions with HOB >30-45 degrees
#Fever on April 17, 2024
#Influenza B
- Tamiflu started on 04/17/24; continue
#Chronic dysphagia
# History for esophageal web
-She is usually on a pur�ed diet with nectar thickened liquids
- Recs from VSE noted.
#Acute Kidney Injury
-Suspected prerenal; poor PO intake reported at home
- Normalized Cr
#Mild transaminitis from infection
-Possibly from infection/sepsis -- trend LFTs -improving
#Acute on chronic hypotension
-Continue midodrine 15 mg 3 times daily with parameters
#Cerebral Palsy
#Seizure Disorder
- Stable.
- Back on her home AEDs
#History of Ovarian Cancer
- S/p surgery and then hormonal therapy.
- Has completed treatment x 5 years.
- Remains on letrozole at family preference.
#Functional quadriplegia due to cerebral palsy
- Dependent on family for all care
#DVT Prophylaxis: Heparin Subq
#Code Status: Full
Nutrition - cw TF
DW patient's parents at bedside
Case Management will need this script prior to discharge: 'Home TF recommendations: recommend 4 8oz-cartons per day of Jevity 1.5 (consider providing 1 carton at 08:00, 12:00, 16:00, and 20:00) to provide 948 ml total volume, 1422 kcal (98% needs),
60 gm protein (103% needs), 720 ml free water. Consider 75 ml/hr flush before and after each feeding for 600 ml free water flush; request adjustments per MD.'
Anticipated Discharge: 24 - 48 hours
Subjective/Interval History
-
Date of Service: April 17, 2024
Patient was seen and examined. She was smiling, she did have fever this morning.
Objective Data
-
Labs:
Laboratory Results
04/17/24
04:22
WBC 8.7
Hgb 11.0 L
Hct 31.2 L
Plt Count 190
Sodium 130 L
Potassium 4.7
Chloride 97 L
Carbon Dioxide 27
BUN 15
Creatinine 0.6
Glucose 122 H
Calcium 9.2
Total Bilirubin 0.3
AST 132 H
ALT 147 H
Alkaline Phosphatase 164 H
Vital Signs:
Vital Signs
Temp Pulse Resp BP Pulse Ox
98.8 F 85 20 111/89 94
04/16/24 23:23 04/16/24 23:23 04/16/24 23:23 04/16/24 23:23 04/17/24 00:21
I&O
04/16/24 04/17/24 04/18/24
06:59 06:59 06:59
Intake Total 620 / 620 1340 / 1340
Output Total 200 / 200
Balance 620 / 620 1140 / 1140
[2024-04-17] MEDS: ProAmatine 15 MG TUBE ×2 (08:51→15:31)
[2024-04-17] MEDS: ONFI 10 MG TUBE ×2 (08:52→20:58)
[2024-04-17] MEDS: TRILEPTAL 600 MG TUBE ×2 (08:52→20:58)
[2024-04-17] MEDS: VITAMIN C 500 MG TUBE (08:52)
[2024-04-17] MEDS: HEPARIN 5000 UNITS SC ×3 (08:52→23:12)
[2024-04-17] MEDS: VISBIOME 1 CAP TUBE (08:52)
[2024-04-17] MEDS: DESENEX/MITRAZOL/ZEASORB 1 APPLIC TOPICAL ×2 (08:55→20:58)
[2024-04-17 10:15] LABS: COVID-19 Antigen Negative (Negative)
[2024-04-17 11:47] LABS: Glucose - Point of Care 109 mg/dl (70-99)
[2024-04-17] MEDS: TAMIFLU 75 MG TUBE ×2 (15:24→20:58)
[2024-04-17 15:25] VITALS: BP 114/85
--- NOTE | 2024-04-17 15:28 | CM ---
[employer] recommendation for feeds for home is now: Four 8oz-cartons per day of Jevity 1.5 (consider providing 1 carton at 08:00, 12:00, 16:00, and 20:00) to provide 948 ml total volume, 75 ml/hr flush before and after each feeding for 600 ml free
water flush. Attending notified and aware of need for script to forward to [facility]. Discharge Plan of Care: Home with resumption of [facility] VN and Bolus feed teaching. [facility] to provide feeds.
[2024-04-17 18:21] LABS: Glucose - Point of Care 101 mg/dl (70-99)
[2024-04-17] MEDS: FEMARA 2.5 MG TUBE (20:59)
[2024-04-17] MEDS: SINGULAIR 10 MG TUBE (20:59)
[2024-04-17] MEDS: NON-FORMULARY ITEM 4 MG TUBE (21:00)
[2024-04-17] MEDS: ProAmatine 5 MG TUBE (23:12)
[2024-04-17 23:31] VITALS: BP 86/57
[2024-04-18 00:37] LABS: Glucose - Point of Care 116 mg/dl (70-99)
[2024-04-18 00:46] VITALS: BP 111/73
[2024-04-18 05:41] VITALS: BMI 26.9
[2024-04-18 07:34] VITALS: BP 97/61
--- NOTE | 2024-04-18 07:44 | PN.CDI ---
CDI
- -
CDI:
Physician Documentation Request
Admit Date: 04/07/24 19:44
Dear Doctor Nader,
Please review the following and provide your response in the progress notes.
Clinical Indicators:
- Patient admit for sepsis with pneumonia, new diagnosis Influenza B
-
Laboratory Tests
04/15/24 04/16/24 04/17/24
10:38 06:01 04:22
Sodium 132 L 132 L 130 L
Please provide a diagnosis for the above lab values that were monitored and treatment rendered:
Hyponatremia
Clinically insignificant abnormal lab value
Other
Use of terms such as suspected, likely, concern for, or probable (associated with a specific diagnosis that is being evaluated, monitored, or treated as if it exists) are acceptable and can be coded in the inpatient setting, when documented at the
time of discharge.
Thank you,
Ludwig Carey RN
CDI Specialist
Please use your independent medical judgment in providing your response.
[2024-04-18 07:55] LABS: Glucose - Point of Care 127 mg/dl (70-99)
[2024-04-18 08:51] LABS: % Basophils 0.4 % (0-2); % Eosinophils 3.1 % (0-6); % Immature Granulocytes 1.1 % (0-0.5); % Monocytes 16.7 % (1.7-9.3); % Neutrophils 62.7 % (42.2-75.2); Absolute Eosinophils 0.2 10^3/uL (0-0.7); Absolute Immature Granulocytes 0.1 10^3/uL (0-0.05); Absolute Lymphocytes 1.1 10^3/uL (1.2-3.4); Absolute Monocytes 1.2 10^3/uL (0.1-0.6); Absolute Neutrophils 4.4 10^3/uL (1.4-6.5); Hematocrit 31.3 % (37.0-47.0); Mean Corp Hgb Conc. 35.1 g/dL (33.0-37.0); Mean Corpuscular Hgb 29.2 pg (27.0-31.0); Mean Platelet Volume 11.7 fL (7.4-10.4); Nucleated Red Blood Cells % 0 %; Platelet Count 195 10^3/uL (130-400); Red Blood Cell Count 3.77 10^6/uL (4.20-5.40); Red Cell Dist. Width 15.1 % (11.5-14.5); White Blood Cell Count 7.1 10^3/uL (4.8-10.8)
[2024-04-18] MEDS: HEPARIN 5000 UNITS SC ×2 (09:15→17:09)
[2024-04-18] MEDS: VITAMIN C 500 MG TUBE (09:16)
[2024-04-18] MEDS: TAMIFLU 75 MG TUBE ×2 (09:16→21:29)
[2024-04-18] MEDS: VISBIOME 1 CAP TUBE (09:16)
[2024-04-18] MEDS: TRILEPTAL 600 MG TUBE ×2 (09:16→21:29)
[2024-04-18] MEDS: ProAmatine 15 MG TUBE ×2 (09:17→17:08)
[2024-04-18] MEDS: ONFI 10 MG TUBE ×2 (09:17→21:29)
[2024-04-18] MEDS: DESENEX/MITRAZOL/ZEASORB 1 APPLIC TOPICAL ×2 (09:18→21:28)
[2024-04-18 09:28] LABS: ALT (SGPT) 151 U/L (0-35); AST (SGOT) 135 U/L (14-36); Alkaline Phosphatase 177 U/L (38-126); Blood Urea Nitrogen 14 mg/dl (7-17); Calcium 9.5 mg/dl (8.4-10.2); Carbon Dioxide 27 mmol/L (22-30); Chloride 97 mmol/L (98-107); Estimated Creatinine Clearance 89 ml/min; Glucose 114 mg/dl (70-99); Magnesium 1.8 mg/dl (1.6-2.3); Potassium 4.5 mmol/L (3.5-5.1); Sodium 131 mmol/L (135-145); Total Bilirubin 0.4 mg/dl (0.2-1.3); Total Protein 5.8 g/dl (6.3-8.2); eGFR > 60.00
[2024-04-18 12:16] LABS: Glucose - Point of Care 124 mg/dl (70-99)
--- NOTE | 2024-04-18 14:39 | CM ---
Addendum entered by Deon Martins 04/18/24 16:48:
Patient anticipated discharge for 04/19/24 postponed. Attending monitoring NA levels. [facility], Tuan and family notified. Anticipate discharge on 04/20/24.
Original Note:
Pleating Supervisor recommendations and orders forwarded to [facility] for review and insurance approval for patient feeds. [facility] will coordinate delivery of Jevity and equipment for bolus feeds. They will also coordinate Tuan KIM training of
parents once patient is in the home. Anticipate discharge on 04/19/24. [facility] available at 1:00PM. Family has van and will transport patient to home.
[2024-04-18 15:04] VITALS: BP 112/75
--- NOTE | 2024-04-18 15:25 | W.PN.HOSP.TC ---
Addendum entered and electronically signed by Lauro Doe MD 04/18/24 16:21:
Checked with nurse: patient is getting 25 cc/hr of free water here, will decrease to 20 cc/hr of free water to address hyponatremia.
Patient's home care/[facility] will need another script saying, 'Free Water Flushes, 60 ml BEFORE AND AFTER EACH BOLUS FEED, For a total of 480 ml's of free water.'
Addendum entered and electronically signed by Lauro Doe MD 04/18/24 16:04:
Discussed with nephrology, sodium does not look too bad, hold free water as per nephrology.
Original Note:
Today's Communication/Plan
-
Hyponatremia -- new since tube feeds -- ordered hyponatremia studies and consulted nephrology
Discharge planning
Assessment / Plan
Assessment / Plan
Physical Exam
General: No Apparent Distress
HEENT: Moist Mucous Membranes
Respiratory: Clear to Auscultation (anteriorly)
Cardiac: Regular Rhythm and S1/S2
GI: Soft and Peg Tube
Neuro: Awake and Alert
Psych: Calm
Assessment/Plan
HPI: 48-year-old with past medical history for seizure, cerebral palsy presented with shortness of breath. She was noted to be lethargic and jittery. History obtained primarily from family. Patient lives with her parents. She was noted to have
seizure activity with fever at home.
Patient was hypoxic on her usual 1 L of home oxygen. Patient received fluids and Zosyn in ER. Admitted for further management .
#Sepsis
#Acute on chronic respiratory failure with hypoxia due to suspected bilateral pneumonia with aspiration
#Recurrent aspiration
#Chronic dysphagia
-Currently on room air
-Finished antibiotics
-VSE done 04/14 - IDDSI 4 with mildly thick liquids
-Started PEG feeds-continue
-Aspiration precautions with HOB >30-45 degrees
#Fever on April 17, 2024
#Influenza B
-Tamiflu started on 04/17/24; continue
#Chronic dysphagia
#History for esophageal web
-She is usually on a pur�ed diet with nectar thickened liquids
-Recs from VSE noted.
#Hyponatremia
-Seems to have started after tube feeds started
-Ordered urine sodium, as well as serum and urine osmoles
-Consulted nephrology, recommendations appreciated
#Acute Kidney Injury
-Suspected prerenal; poor PO intake reported at home
- Normalized Cr
#Mild transaminitis from infection
-Possibly from infection/sepsis -- trend LFTs -improving
#Acute on chronic hypotension
-Continue midodrine 15 mg 3 times daily with parameters
#Cerebral Palsy
#Seizure Disorder
- Stable.
- Back on her home AEDs
#History of Ovarian Cancer
- S/p surgery and then hormonal therapy.
- Has completed treatment x 5 years.
- Remains on letrozole at family preference.
#Functional quadriplegia due to cerebral palsy
- Dependent on family for all care
#DVT Prophylaxis: Heparin Subq
#Code Status: Full
Nutrition - cw TF
DW patient's mother at bedside
Case Management will need this script prior to discharge: 'Home TF recommendations: recommend 4 8oz-cartons per day of Jevity 1.5 (consider providing 1 carton at 08:00, 12:00, 16:00, and 20:00) to provide 948 ml total volume, 1422 kcal (98% needs),
60 gm protein (103% needs), 720 ml free water. Consider 75 ml/hr flush before and after each feeding for 600 ml free water flush; request adjustments per MD.'
Anticipated Discharge: 24 - 48 hours
Subjective/Interval History
-
Date of Service: April 18, 2024
Patient was seen and examined. Per patient's mom, patient appears to be doing better today.
Objective Data
-
Labs:
Laboratory Results
04/18/24
08:23
WBC 7.1
Hgb 11.0 L
Hct 31.3 L
Plt Count 195
Sodium 131 L
Potassium 4.5
Chloride 97 L
Carbon Dioxide 27
BUN 14
Creatinine 0.6
Glucose 114 H
Calcium 9.5
Total Bilirubin 0.4
AST 135 H
ALT 151 H
Alkaline Phosphatase 177 H
Vital Signs:
Vital Signs
Temp Pulse Resp BP Pulse Ox
98.7 F 81 18 112/75 96
04/18/24 15:04 04/18/24 15:04 04/18/24 15:04 04/18/24 15:04 04/18/24 15:04
I&O
04/17/24 04/18/24 04/19/24
06:59 06:59 06:59
Intake Total 1340 / 1340 840 / 840
Output Total 200 / 200
Balance 1140 / 1140 840 / 840
--- NOTE | 2024-04-18 16:25 | PTCARENOTE ---
Spoke with Dr. Doe and verbal order given to decrease tube feed flush from 25ml/hr to 20ml/hr 1619.
[2024-04-18 17:25] LABS: Osmolality Serum 276 mOsm/kg (275-300)
[2024-04-18 18:31] LABS: Glucose - Point of Care 80 mg/dl (70-99)
[2024-04-18] MEDS: NON-FORMULARY ITEM 4 MG TUBE (21:29)
[2024-04-18] MEDS: SINGULAIR 10 MG TUBE (21:29)
[2024-04-18] MEDS: FEMARA 2.5 MG TUBE (21:29)
[2024-04-18 23:20] VITALS: BP 110/77
[2024-04-19] LABS: Glucose - Point of Care 124 mg/dl (70-99)
[2024-04-19] MEDS: HEPARIN 5000 UNITS SC ×3 (00:01→16:14)
[2024-04-19 05:59] LABS: Glucose - Point of Care 115 mg/dl (70-99)
[2024-04-19 06:00] VITALS: BMI 26.6
[2024-04-19 06:25] LABS: % Basophils 0.4 % (0-2); % Eosinophils 2.1 % (0-6); % Immature Granulocytes 0.9 % (0-0.5); % Lymphocytes 19.7 % (20.5-51.1); % Monocytes 17.6 % (1.7-9.3); % Neutrophils 59.3 % (42.2-75.2); Absolute Eosinophils 0.2 10^3/uL (0-0.7); Absolute Immature Granulocytes 0.1 10^3/uL (0-0.05); Absolute Lymphocytes 1.6 10^3/uL (1.2-3.4); Absolute Monocytes 1.4 10^3/uL (0.1-0.6); Absolute Neutrophils 4.8 10^3/uL (1.4-6.5); Hematocrit 31.5 % (37.0-47.0); Hemoglobin 10.9 g/dL (12.0-16.0); Mean Corp Hgb Conc. 34.6 g/dL (33.0-37.0); Mean Corpuscular Hgb 29.2 pg (27.0-31.0); Mean Corpuscular Volume 84.5 fL (81.0-99.0); Mean Platelet Volume 12.4 fL (7.4-10.4); Nucleated Red Blood Cells % 0 %; Platelet Count 199 10^3/uL (130-400); Red Blood Cell Count 3.73 10^6/uL (4.20-5.40); Red Cell Dist. Width 14.9 % (11.5-14.5); White Blood Cell Count 8.1 10^3/uL (4.8-10.8)
[2024-04-19 06:48] LABS: ALT (SGPT) 146 U/L (0-35); AST (SGOT) 138 U/L (14-36); Alkaline Phosphatase 193 U/L (38-126); Blood Urea Nitrogen 15 mg/dl (7-17); Calcium 9.5 mg/dl (8.4-10.2); Carbon Dioxide 25 mmol/L (22-30); Chloride 96 mmol/L (98-107); Estimated Creatinine Clearance 88 ml/min; Glucose 121 mg/dl (70-99); Magnesium 1.8 mg/dl (1.6-2.3); Potassium 4.5 mmol/L (3.5-5.1); Sodium 130 mmol/L (135-145); Total Bilirubin 0.4 mg/dl (0.2-1.3); Total Protein 5.9 g/dl (6.3-8.2); eGFR > 60.00
[2024-04-19 07:38] VITALS: BP 104/63
[2024-04-19 07:42] LABS: Glucose - Point of Care 134 mg/dl (70-99)
[2024-04-19] MEDS: ProAmatine 15 MG TUBE ×2 (08:59→16:14)
[2024-04-19] MEDS: VISBIOME 1 CAP TUBE (08:59)
[2024-04-19] MEDS: VITAMIN C 500 MG TUBE (08:59)
[2024-04-19] MEDS: ONFI 10 MG TUBE ×2 (08:59→20:50)
[2024-04-19] MEDS: TRILEPTAL 600 MG TUBE ×2 (08:59→20:50)
[2024-04-19] MEDS: TAMIFLU 75 MG TUBE ×2 (09:00→20:50)
--- NOTE | 2024-04-19 09:23 | PTCARENOTE ---
Flush decreased to 15ml/hr from 20ml/hr per Dr. Doe [id number]
[2024-04-19] MEDS: DESENEX/MITRAZOL/ZEASORB 1 APPLIC TOPICAL ×2 (09:32→22:38)
[2024-04-19 11:49] LABS: Osmolality Serum 276 mOsm/kg (275-300)
[2024-04-19 12:27] LABS: Glucose - Point of Care 120 mg/dl (70-99)
--- NOTE | 2024-04-19 14:56 | W.PN.HOSP.TC ---
Today's Communication/Plan
-
Decreased free water flushes rate due to hyponatremia
Consulted nephrology as sodium has not improved after water flushes decreased yesterday
Transaminitis -- previously thought to be from sepsis/infection not improving yet -- consulted GI. Previous ultrasound noted.
Assessment / Plan
Assessment / Plan
Physical Exam
General: No Apparent Distress
HEENT: Moist Mucous Membranes
Respiratory: Clear to Auscultation (anteriorly)
Cardiac: Regular Rhythm and S1/S2
GI: Soft and Peg Tube
Neuro: Awake and Alert
Psych: Calm
Assessment/Plan
HPI: 48-year-old with past medical history for seizure, cerebral palsy presented with shortness of breath. She was noted to be lethargic and jittery. History obtained primarily from family. Patient lives with her parents. She was noted to have
seizure activity with fever at home.
Patient was hypoxic on her usual 1 L of home oxygen. Patient received fluids and Zosyn in ER. Admitted for further management .
#Sepsis
#Acute on chronic respiratory failure with hypoxia due to suspected bilateral pneumonia with aspiration
#Recurrent aspiration
#Chronic dysphagia
-Currently on room air
-Finished antibiotics
-VSE done 04/14 - IDDSI 4 with mildly thick liquids
-Started PEG feeds-continue
-Aspiration precautions with HOB >30-45 degrees
#Fever on April 17, 2024
#Influenza B
-Tamiflu started on 04/17/24; continue
#Chronic dysphagia
#History for esophageal web
-She is usually on a pur�ed diet with nectar thickened liquids
-Recs from VSE noted.
#Hyponatremia
-Seems to have started after tube feeds started
-Decreased free water flushes rate but sodium has not improved
-Ordered urine sodium, as well as serum and urine osmoles
-Consulted nephrology, recommendations appreciated
#Acute Kidney Injury
-Suspected prerenal; poor PO intake reported at home
- Normalized Cr
#Mild transaminitis - possibly from infection/sepsis
-AST and ALT not improving as would be expected
-Consulted GI, recommendations appreciated
#Acute on chronic hypotension
-Continue midodrine 15 mg 3 times daily with parameters
#Cerebral Palsy
#Seizure Disorder
- Stable.
- Back on her home AEDs
#History of Ovarian Cancer
- S/p surgery and then hormonal therapy.
- Has completed treatment x 5 years.
- Remains on letrozole at family preference.
#Functional quadriplegia due to cerebral palsy
- Dependent on family for all care
#DVT Prophylaxis: Heparin Subq
#Code Status: Full
Nutrition - cw TF
DW patient's father at bedside
Anticipated Discharge: 24 - 48 hours
Subjective/Interval History
-
Date of Service: April 19, 2024
Patient was seen and examined. No new significant symptoms or complaints.
Objective Data
-
Labs:
Laboratory Results
04/19/24
05:35
WBC 8.1
Hgb 10.9 L
Hct 31.5 L
Plt Count 199
Sodium 130 L
Potassium 4.5
Chloride 96 L
Carbon Dioxide 25
BUN 15
Creatinine 0.5 L
Glucose 121 H
Calcium 9.5
Total Bilirubin 0.4
AST 138 H
ALT 146 H
Alkaline Phosphatase 193 H
Vital Signs:
Vital Signs
Temp Pulse Resp BP Pulse Ox
98.6 F 82 18 104/63 93
04/19/24 07:38 04/19/24 08:59 04/19/24 07:38 04/19/24 08:59 04/19/24 07:38
I&O
0604/19/24 04/20/24
06:59 06:59 06:59
Intake Total 840 / 840 780 / 780
Balance 840 / 840 780 / 780
--- NOTE | 2024-04-19 15:37 | W.PN.GI.CBS2 ---
Addendum entered and electronically signed by Og Martínez MD 04/19/24 17:32:
I saw and examined the patient.
The PARAFFINER or PA's note was reviewed and I agree with the note.
Comment:
Pt with a hx of CP, seizures, PEG, with chronic elevation of LFTs which are mild. Multiple antibiotics in recent past and on seizure meds. As per mom no hx of hepatitis or jaundice. In hospital for the flu
resting comfortably
impression
abnl lfts
normal liver by u/s
plan
follow lfts which may be chronically elevated
check w/u for underyling chronic liver disease
avoid hepatotoxic drugs
Original Note:
Today's Communication / Plan
-
Add chronic liver disease labs. Trend LFT's. Avoid hypotension.
Assessment / Plan
-
The pt is a 48 yo female with a PMH significant for seizures/epilepsy, cerebral palsy, ovarian CA, nonverbal with recurrent admission for concern of aspiration and esophageal web. Pt was initially seen in early March with noted foreign body with clear
round plastic disc in back of oropharynx with drooling and object was removed. She complete speech eval with concern for esophageal web. She was discharged 03/22 and returned 03/23 with continued fever and PNA. She had DHT placed. she was
eventually seen by speech therapy 04/08 with impaired oropharyngeal swallowing and placed in IDDSI 4 diet with mild thickened liquids. She was discharged and per mother day after discharged had eaten breakfast then note 45 minutes rosa with
gagging, shakiness and concern for recurrent aspiration. On return WBC stable but fever was up to 102.8 and CXR with PNA/pneumonitis. Asked to see to discuss peg and EGD with eval for possible esophageal web. Pt also with elevated LFT's.
Ultimately she had a PEG tube placed on 04/13 and was started on tube feedings and GI signed off. We are now being asked to evaluate for ongoing LFT elevation. She had an US of the abdomen done on 04/12 as below with no significant findings. It was
thought that the LFT elevation was related to sepsis but despite her improvement they have not improved. She was found to be Flu B positive and started on Tamiflu on 04/17. She is intermittently hypotensive on midodrine. She had been on Zosyn and
completed a course of Amoxicillin on 04/15. She has had persistently elevated LFT's, hepatocellular pattern throughout her admission but with no significant changes.
04/12/24 US abdomen The liver is normal in size, measuring 13.7 cm in length. It is normal in echogenicity. There is no focal hepatic lesion or intrahepatic biliary dilation. The gallbladder is physiologically distended with fluid and shows no
shadowing calculi or wall thickening. The common duct is normal, measuring 4 mm. Nonvisualization of the pancreas, proximal IVC and abdominal aorta. Simple left renal cyst
Problem list:
-elevated LFT's
-dysphagia s/p PEG tube placement
-recurrent PNA
-hx Possible esophageal web seen on video swallow exam
-nutrition with current DHT feedings
-hx constipation regular stools with tube feeds
-bradycardia
-elevated LFT's
-recent foreign body found in patient's oropharynx with removal
Other medical problems:
-Recurrent UTIs
-Cerebral palsy, nonverbal
-Seizure disorder
-hx ovarian CA
Recommendations:
-Etiology of abnormal LFT's likely multifactorial secondary to hypotension with low flow state v DILI with recent antibiotics (Augmentin til 04/15) and polypharmacy v viral etiology as she is Flu B positive v other.
-Hepatitis serologies are negative. US imaging was normal. LFT's are not significantly changed or increasing.
-Would check chronic liver disease labs (EDGAR, AMA, SMA, LKMA, A1AT, Ceruloplasmin, celiac panel, iron studies, ferritin)
-Continue to trend LFT's, hopefully will improve
-Ensure adequate perfusion/avoid hypotension
-If worsening LFT's consider MRI imaging (unclear if she would even be able to tolerate this)
-Further plan pending above
Subjective
Subjective
Date of Service: April 19, 2024
We were asked to re-evaluate the pt for persistently elevated transaminases. She is nonverbal therefore unable to provided any information. Her mother is at the bedside. She does not appear in pain. Her labs were reviewed with some increase in her
transaminases but relatively stable. Her alk phos is also mildly elevated with normal TB. Us imaging from 04/12 was normal.
Objective
Data Reviewed
Laboratory Data:
Laboratory Results
04/19/24 05:35
04/19/24 05:35
Laboratory Results
Phosphorus 3.2 mg/dl (2.5-4.5) 04/15/24 10:38
Magnesium 1.8 mg/dl (1.6-2.3) 04/19/24 05:35
Total Bilirubin 0.4 mg/dl (0.2-1.3) 04/19/24 05:35
AST 138 U/L (14-36) H 04/19/24 05:35
ALT 146 U/L (0-35) H 04/19/24 05:35
Alkaline Phosphatase 193 U/L (38-126) H 04/19/24 05:35
Vital Signs and I&O:
Vital Signs
Temp Pulse Resp BP Pulse Ox
98.6 F 82 18 104/63 93
04/19/24 07:38 04/19/24 08:59 04/19/24 07:38 04/19/24 08:59 04/19/24 07:38
I&O
04/18/24 04/19/24 04/20/24
06:59 06:59 06:59
Intake Total 840 / 840 780 / 780
Balance 840 / 840 780 / 780
Physical Exam
Physical Exam
HEENT: Anicteric
Cardiology: S1 and S2 (regular rate/rhythm)
Pulmonary: Other (overall diminished due to poor inspiratory effort, +dry cough)
GI: Soft, Non Distended, Non Tender, Normal Bowel Sounds and Other (PEG tube with abdominal binder)
Neuro: Other (nonverbal, contracted)
[2024-04-19 15:48] VITALS: BP 100/63
--- NOTE | 2024-04-19 16:12 | W.CON.NEPH ---
Consultation
-
Date/Time Consultation Requested: April 19, 2024 11 AM
Date/Time Consultation Performed: April 19, 2024 4 PM
Requesting Provider: Dr. Mensah
Performing Provider: Dr. Moreno
Reason for Consultation: Hyponatremia
Medical History
-
Chief Complaint: Pneumonia
History of Present Illness:
This is a 48-year-old female with cerebral palsy who is cared for by her parents at home. She has epilepsy on antiepileptic drugs, chronic hypotension on midodrine therapy. She had a recent hospitalization earlier last month for aspiration
pneumonia. She was ultimately discharged with Augmentin. She returns with twitching and fevers. She had elevated liver function testing and hypoxia. X-ray showed bilateral infiltrates though improved from prior x-ray. She was given
broad-spectrum antibiotics. Initially she was in the ICU though was subsequently downgraded. On 15 April she was started on tube feeding with free water flushes. Her serum level began to fall now down to 130. She also had a nasal swab which showed
that she was now positive for influenza B. She was started on Tamiflu.
Past Medical History
Cerebral palsy, epilepsy, esophageal webs, chronic hypotension, ovarian cancer status post LUCERO/BSO, functional quadriplegia, appendectomy, vagus nerve stimulator, PEG
Social History
Tobacco: Non-Smoker
Alcohol: None
Family History
Family History: Not Pertinent
Allergies / Home Medications
Allergy/AdvReac Type Severity Reaction Status Date / Time
brompheniramine Allergy hyper Verified 04/07/24 16:05
[From Dimetapp Cold-Allergy
(PE)]
chloral hydrate Allergy hyper Verified 04/07/24 16:05
diphenhydramine Allergy hyper Verified 04/07/24 16:05
[From Benadryl]
latex Allergy Swelling Verified 04/07/24 16:05
phenobarbital Allergy hyper Verified 04/07/24 16:05
phenylephrine Allergy hyper Verified 04/07/24 16:05
[From Dimetapp Cold-Allergy
(PE)]
phenytoin [From Dilantin] Allergy Rash Verified 04/07/24 16:05
Sulfa (Sulfonamide Allergy Hives Verified 04/07/24 16:05
Antibiotics)
topiramate [From Topamax] Allergy Rash Verified 04/07/24 16:05
�Medication �Instructions �Recorded �Confirmed �Type
Lactobac no.2-Bifidobac no.1-S. 1 cap PO DAILY Gastrointestinal 03/17/24 04/07/24 History
thermo 112.5 billion cell capsule Issue
(Visbiome)
ascorbic acid (vitamin C) 500 mg 500 mg PO DAILY Supplement 03/17/24 04/07/24 History
tablet (Vitamin C)
cetirizine 10 mg tablet (Zyrtec) 10 mg PO DAILY PRN allergies 03/17/24 04/07/24 History
clobazam 10 mg tablet (Onfi) 10 mg PO BID Seizures 03/17/24 04/07/24 History
docusate sodium 50 mg/5 mL oral 100 mg PO BIDPRN PRN constipation 03/17/24 04/07/24 History
liquid
fluticasone propionate 50 2 spray intranasal DAILY Allergies 03/17/24 04/07/24 History
mcg/actuation nasal
spray,suspension
letrozole 2.5 mg tablet 2.5 mg PO HS Hormonal Agent 03/17/24 04/07/24 History
montelukast 10 mg tablet 10 mg PO HS Allergies 03/17/24 04/07/24 History
(Singulair)
oxcarbazepine 600 mg tablet 600 mg PO BID Seizures 03/17/24 04/07/24 History
(Trileptal)
polyethylene glycol 3350 17 gram 17 g PO DAILY PRN constipation 03/17/24 04/07/24 History
oral powder packet (Miralax)
sennosides 8.8 mg/5 mL oral syrup 17.6 mg PO HSPRN PRN constipation 03/17/24 04/07/24 History
(senna)
tiagabine 4 mg tablet 4 mg PO HS Seizures 03/17/24 04/07/24 History
acetaminophen 500 mg tablet 1,000 mg PO Q6H PRN mild pain 03/23/24 04/07/24 History
(Tylenol Extra Strength)
midodrine 5 mg tablet 15 mg PO BID Blood Pressure 03/23/24 04/07/24 History
amoxicillin 250 mg-potassium 10 ml PO Q12 #75 mL 04/03/24 04/07/24 Rx
clavulanate 62.5 mg/5 mL oral
suspension
Review of Systems
-
Unable to obtain full review of systems at this time due to: Patient Non Verbal
History Source: Patient
All other systems: Negative unless noted
Physical Exam
Vital Signs
Vital Signs
Temp Pulse Resp BP Pulse Ox
98.2 F 83 18 100/63 97
04/19/24 15:48 04/19/24 15:48 04/19/24 15:48 04/19/24 15:48 04/19/24 15:48
Lab Results
WBC 8.1 10^3/uL (4.8-10.8) 04/19/24 05:35
RBC 3.73 10^6/uL (4.20-5.40) L 04/19/24 05:35
Hgb 10.9 g/dL (12.0-16.0) L 04/19/24 05:35
Hct 31.5 % (37.0-47.0) L 04/19/24 05:35
Plt Count 199 10^3/uL (130-400) 04/19/24 05:35
Sodium 130 mmol/L (135-145) L 04/19/24 05:35
Potassium 4.5 mmol/L (3.5-5.1) 04/19/24 05:35
Chloride 96 mmol/L (98-107) L 04/19/24 05:35
Carbon Dioxide 25 mmol/L (22-30) 06/05/24 05:35
BUN 15 mg/dl (7-17) 04/19/24 05:35
Creatinine 0.5 mg/dL (0.6-1.0) L 04/19/24 05:35
eGFR > 60.00 04/19/24 05:35
Glucose 121 mg/dl (70-99) H 04/19/24 05:35
Calcium 9.5 mg/dl (8.4-10.2) 04/19/24 05:35
Phosphorus 3.2 mg/dl (2.5-4.5) 04/15/24 10:38
Nnn-P-Hkzbaafpcqx Pept 1250 pg/ml 04/10/24 03:13
Albumin 3.0 g/dl (3.5-5.0) L 04/19/24 05:35
Physical Exam
Patient is awake and in no distress. Mood and affect could not be assessed, insight and judgment could not be assessed. Pupils are equal round and reactive to light, extraocular movements are intact, sclera were anicteric. Hearing was normal, ears
and nose are intact. Oropharynx was clear. Neck was supple with trachea midline and no thyromegaly. Heart was regular rate and rhythm without rubs. Lower extremities without edema. Lungs were clear to auscultation bilaterally and with normal
excursion. Abdomen was soft, nontender, with normal active bowel sounds, and no hepatosplenomegaly. Skin was without rash and with normal turgor.
Data Reviewed
-
Medical Tests (Nuc Med, Echo etc): Image Personally Visualized and interpreted (Chest x-ray on April 12, 2024 by my reading shows no acute disease, EKG on April 11, 2024 by my read shows sinus bradycardia)
Labs: Labs Reviewed by me (WBC 8.1, hemoglobin 10.9, platelets 199, sodium 130, potassium 4.5, chloride 96, creatinine 0.5, AST 138, ALT 146, urinalysis on April 16 trace albumin only)
Assessment/Plan
-
Assessment:
Pneumonia
Influenza B
Elevated LFTs
Hyponatremia
PEG
Chronic hypotension
Cerebral palsy
History of treated ovarian cancer, on letrozole
Quadriplegia
Plan:
I suspect that the hyponatremia is potentiated by excess ADH likely from influenza, antiepileptic medications. This was then worsened by additional water intake via free water flushes with tube feeding initiation.
At this point we will discontinue all free water flushes. Minimal flushes will be used for medications. At home
Given that she will be receiving bolus feeding, only 25 cc of fluid/water will be used pre and post boluses. Medications likewise will be used with 25 cc of fluid only.
Follow BMP
Check urine studies if possible to demonstrate excess ADH though urine may be difficult to obtain.
Discussed with mother at bedside.
--- NOTE | 2024-04-19 16:34 | CM ---
Discharge Plan of Care: Patient will discharge to home with Jevity Bolus feeds. [facility] has documentation and script for Jevity. They need a script for the Flushes. NA is being monitored. Flush RX. will not be done until Nephrology and
Attending determine # of ml's per each flush before and after each bolus feed and total amount of free water per 24 hours. Cecy at [facility] aware. Cecy is coordinating with [facility] for VN to meet
patient and parents at home on day of discharge to educate and train parents on bolus feeds.
Speech is requesting suction eqpt in the home for after pleasure feeds. Documentation and Order faxed to Cristobal at [facility]. Spoke with Cristobal, he will reach out to covering CM.
[2024-04-19 18:20] LABS: Glucose - Point of Care 131 mg/dl (70-99)
[2024-04-19 19:15] LABS: Iron 68 ug/dl (37-170)
[2024-04-19 19:25] LABS: Percent Saturation 28 % (20-50); Total Iron Binding Capacity 242 ug/dl (265-497)
[2024-04-19 21:57] LABS: Osmolality Urine 412 mOsm/kg (300-900)
[2024-04-19 22:13] LABS: Urine Sodium 93 mmol/L (30-90)
[2024-04-19] MEDS: FEMARA 2.5 MG TUBE (22:39)
[2024-04-19] MEDS: SINGULAIR 10 MG TUBE (22:39)
[2024-04-19] MEDS: NON-FORMULARY ITEM 4 MG TUBE (22:39)
[2024-04-19 23:29] VITALS: BP 106/73
[2024-04-20 00:10] LABS: Glucose - Point of Care 127 mg/dl (70-99)
[2024-04-20] MEDS: HEPARIN 5000 UNITS SC ×4 (00:48→22:40)
[2024-04-20 05:05] LABS: % Basophils 0.4 % (0-2); % Eosinophils 2.2 % (0-6); % Lymphocytes 22.6 % (20.5-51.1); % Monocytes 17.9 % (1.7-9.3); % Neutrophils 55.9 % (42.2-75.2); Absolute Eosinophils 0.2 10^3/uL (0-0.7); Absolute Immature Granulocytes 0.1 10^3/uL (0-0.05); Absolute Lymphocytes 1.6 10^3/uL (1.2-3.4); Absolute Monocytes 1.2 10^3/uL (0.1-0.6); Absolute Neutrophils 3.9 10^3/uL (1.4-6.5); Hematocrit 31.5 % (37.0-47.0); Hemoglobin 10.8 g/dL (12.0-16.0); Mean Corp Hgb Conc. 34.3 g/dL (33.0-37.0); Mean Corpuscular Hgb 29.1 pg (27.0-31.0); Mean Corpuscular Volume 84.9 fL (81.0-99.0); Mean Platelet Volume 11.8 fL (7.4-10.4); Nucleated Red Blood Cells % 0 %; Platelet Count 195 10^3/uL (130-400); Red Blood Cell Count 3.71 10^6/uL (4.20-5.40); Red Cell Dist. Width 14.6 % (11.5-14.5); White Blood Cell Count 6.9 10^3/uL (4.8-10.8)
[2024-04-20 05:38] LABS: ALT (SGPT) 151 U/L (0-35); AST (SGOT) 150 U/L (14-36); Albumin 3.2 g/dl (3.5-5.0); Alkaline Phosphatase 201 U/L (38-126); Blood Urea Nitrogen 18 mg/dl (7-17); Calcium 9.6 mg/dl (8.4-10.2); Carbon Dioxide 27 mmol/L (22-30); Chloride 96 mmol/L (98-107); Estimated Creatinine Clearance 88 ml/min; Glucose 111 mg/dl (70-99); Magnesium 1.8 mg/dl (1.6-2.3); Potassium 4.5 mmol/L (3.5-5.1); Sodium 130 mmol/L (135-145); Total Bilirubin 0.5 mg/dl (0.2-1.3); Total Protein 6.1 g/dl (6.3-8.2); eGFR > 60.00
[2024-04-20 05:43] LABS: IgA 174 mg/dl (70-400)
[2024-04-20 06:00] VITALS: BMI 26.2
[2024-04-20 06:10] LABS: Glucose - Point of Care 119 mg/dl (70-99)
[2024-04-20 08:00] VITALS: BP 128/77
[2024-04-20] MEDS: DESENEX/MITRAZOL/ZEASORB 1 APPLIC TOPICAL ×2 (08:50→20:41)
[2024-04-20] MEDS: VITAMIN C 500 MG TUBE (08:51)
[2024-04-20] MEDS: TRILEPTAL 600 MG TUBE ×2 (08:51→20:40)
[2024-04-20] MEDS: VISBIOME 1 CAP TUBE (08:51)
[2024-04-20] MEDS: ONFI 10 MG TUBE ×2 (08:51→20:40)
[2024-04-20] MEDS: ProAmatine TUBE (08:53)
[2024-04-20] MEDS: TAMIFLU 75 MG TUBE ×2 (08:54→20:40)
--- NOTE | 2024-04-20 10:19 | W.PN.NEPH.PH ---
Today's Communication / Plan
-
samsca
Assessment/Plan
-
Assessment:
Pneumonia
Influenza B
Elevated LFTs
Hyponatremia
PEG
Chronic hypotension
Cerebral palsy
History of treated ovarian cancer, on letrozole
Quadriplegia
Plan:
samsca as Uosm is high
no FWF still
Discussed with mother at bedside.
-
-
Date of Service: April 20, 2024
CC / HPI / ROS
-
Chief Complaint:
hyponatremia
History of Present Illness:
Na 130 stable
off FWF, still on TF
BP stable on midodrine
Review of Systems:
no fever
nonoliguric
Labs
-
Labs:
WBC 6.9 10^3/uL (4.8-10.8) 04/20/24 04:40
RBC 3.71 10^6/uL (4.20-5.40) L 04/20/24 04:40
Hgb 10.8 g/dL (12.0-16.0) L 04/20/24 04:40
Hct 31.5 % (37.0-47.0) L 04/20/24 04:40
Plt Count 195 10^3/uL (130-400) 04/20/24 04:40
Sodium 130 mmol/L (135-145) L 04/20/24 04:40
Potassium 4.5 mmol/L (3.5-5.1) 04/20/24 04:40
Chloride 96 mmol/L (98-107) L 04/20/24 04:40
Carbon Dioxide 27 mmol/L (22-30) 04/20/24 04:40
BUN 18 mg/dl (7-17) H 04/20/24 04:40
Creatinine 0.5 mg/dL (0.6-1.0) L 04/20/24 04:40
eGFR > 60.00 04/20/24 04:40
Glucose 111 mg/dl (70-99) H 04/20/24 04:40
Calcium 9.6 mg/dl (8.4-10.2) 04/20/24 04:40
Phosphorus 3.2 mg/dl (2.5-4.5) 04/15/24 10:38
Ogd-I-Vyyoaaamrhm Pept 1250 pg/ml 04/10/24 03:13
Albumin 3.2 g/dl (3.5-5.0) L 04/20/24 04:40
Physical Exam
-
Vital Signs:
Vital Signs
Temp Pulse Resp BP Pulse Ox
97.8 F 91 20 128/77 93
04/20/24 08:00 04/20/24 08:53 04/20/24 08:00 04/20/24 08:53 04/20/24 08:00
Cardiovascular:: Regular rate and rhythm
Respiratory:: Bilateral: Coarse
Lung Excursion:: Normal
Abdomen:: Nontender and Soft
Bowel Sounds:: Normal
Extremity Edema:: None: Bilateral:
[2024-04-20] MEDS: SAMSCA 15 MG TUBE (10:50)
--- NOTE | 2024-04-20 12:31 | W.PN.HOSP.TC ---
Today's Communication/Plan
-
Samsca
Anticipated discharge tomorrow
Assessment / Plan
Assessment / Plan
Physical Exam
General: No Apparent Distress
HEENT: Moist Mucous Membranes
Respiratory: Clear to Auscultation (anteriorly)
Cardiac: Regular Rhythm and S1/S2
GI: Soft and Peg Tube
Neuro: Awake and Alert
Psych: Calm
Assessment/Plan
HPI: 48-year-old with past medical history for seizure, cerebral palsy presented with shortness of breath. She was noted to be lethargic and jittery. History obtained primarily from family. Patient lives with her parents. She was noted to have
seizure activity with fever at home.
Patient was hypoxic on her usual 1 L of home oxygen. Patient received fluids and Zosyn in ER. Admitted for further management .
#Sepsis
#Acute on chronic respiratory failure with hypoxia due to suspected bilateral pneumonia with aspiration
#Recurrent aspiration
#Chronic dysphagia
-Currently on room air
-Finished antibiotics
-VSE done 04/14 - IDDSI 4 with mildly thick liquids
-Started PEG feeds-continue
-Aspiration precautions with HOB >30-45 degrees
#Fever on April 17, 2024
#Influenza B
-Tamiflu started on 04/17/24; continue
#Chronic dysphagia
#History for esophageal web
-She is usually on a pur�ed diet with nectar thickened liquids
-Recs from VSE noted.
#Hyponatremia from SIADH likely from influenza, antiepileptic medications and recent tube feeding free water flushes
-Seems to have started after tube feeds started
-Have minimized free water flushes rate but sodium has not improved
-Consulted nephrology, recommendations appreciated
-Samsca
#Acute Kidney Injury
-Suspected prerenal; poor PO intake reported at home
- Normalized Cr
#Mild transaminitis - possibly from infection/sepsis
-AST and ALT not improving as would be expected but relatively stable
-Consulted GI, recommendations appreciated -- on 04/20/24 via [place] [facility], GI mentioned that patient's liver abnormalities are chronic and may be due to one of her medications, patient's PCP can monitor patient's transaminases and no further work-up
to do inpatient at this time
#Acute on chronic hypotension
-Continue midodrine 15 mg 3 times daily with parameters
#Cerebral Palsy
#Seizure Disorder
- Stable.
- Back on her home AEDs
#History of Ovarian Cancer
- S/p surgery and then hormonal therapy.
- Has completed treatment x 5 years.
- Remains on letrozole at family preference.
#Functional quadriplegia due to cerebral palsy
- Dependent on family for all care
#DVT Prophylaxis: Heparin Subq
#Code Status: Full
Nutrition - cw TF
DW patient's mother at bedside
WILL NEED SCRIPT FOR TUBE FEEDS PRIOR TO DISCHARGE FOLLOWS: 'Four 8oz-cartons per day of Jevity 1.5 (provide 1 carton via PEG Tube at 08:00, 12:00, 16:00, and 20:00) to provide 948 ml total volume, 1422 kcal (98% needs), 60 gm protein (103%
needs), and 25 ml/hr flush before and after each feeding bolus to provide total of 200 ml free water flush. For medications, use 25 cc free water flush to administer medications'
Anticipated Discharge: Within 24 hours
Subjective/Interval History
-
Date of Service: April 20, 2024
Patient was seen and examined. No new significant symptoms or complaints reported.
Objective Data
-
Labs:
Laboratory Results
04/20/24
04:40
WBC 6.9
Hgb 10.8 L
Hct 31.5 L
Plt Count 195
Sodium 130 L
Potassium 4.5
Chloride 96 L
Carbon Dioxide 27
BUN 18 H
Creatinine 0.5 L
Glucose 111 H
Calcium 9.6
Total Bilirubin 0.5
AST 150 H
ALT 151 H
Alkaline Phosphatase 201 H
Vital Signs:
Vital Signs
Temp Pulse Resp BP Pulse Ox
97.8 F 91 20 128/77 93
04/20/24 08:00 04/20/24 08:53 04/20/24 08:00 04/20/24 08:53 04/20/24 08:00
I&O
04/19/24 04/20/24 04/21/24
06:59 06:59 06:59
Intake Total 780 / 780 570 / 570
Balance 780 / 780 570 / 570
[2024-04-20 12:35] LABS: Glucose - Point of Care 122 mg/dl (70-99)
--- NOTE | 2024-04-20 13:23 | W.PN.GI.CBS2 ---
Today's Communication / Plan
-
no further inpatient w/u
Assessment / Plan
-
The pt is a 48 yo female with a PMH significant for seizures/epilepsy, cerebral palsy, ovarian CA, nonverbal with recurrent admission for concern of aspiration and esophageal web. Pt was initially seen in early March with noted foreign body with clear
round plastic disc in back of oropharynx with drooling and object was removed. She complete speech eval with concern for esophageal web. She was discharged 03/22 and returned 03/23 with continued fever and PNA. She had DHT placed. she was
eventually seen by speech therapy 04/08 with impaired oropharyngeal swallowing and placed in IDDSI 4 diet with mild thickened liquids. She was discharged and per mother day after discharged had eaten breakfast then note 45 minutes rosa with
gagging, shakiness and concern for recurrent aspiration. On return WBC stable but fever was up to 102.8 and CXR with PNA/pneumonitis. Asked to see to discuss peg and EGD with eval for possible esophageal web. Pt also with elevated LFT's.
Ultimately she had a PEG tube placed on 04/13 and was started on tube feedings and GI signed off. We are now being asked to evaluate for ongoing LFT elevation. She had an US of the abdomen done on 04/12 as below with no significant findings. It was
thought that the LFT elevation was related to sepsis but despite her improvement they have not improved. She was found to be Flu B positive and started on Tamiflu on 04/17. She is intermittently hypotensive on midodrine. She had been on Zosyn and
completed a course of Amoxicillin on 04/15. She has had persistently elevated LFT's, hepatocellular pattern throughout her admission but with no significant changes.
04/12/24 US abdomen The liver is normal in size, measuring 13.7 cm in length. It is normal in echogenicity. There is no focal hepatic lesion or intrahepatic biliary dilation. The gallbladder is physiologically distended with fluid and shows no
shadowing calculi or wall thickening. The common duct is normal, measuring 4 mm. Nonvisualization of the pancreas, proximal IVC and abdominal aorta. Simple left renal cyst
Problem list:
-elevated LFT's
-dysphagia s/p PEG tube placement
-recurrent PNA
-hx Possible esophageal web seen on video swallow exam
-nutrition with current DHT feedings
-hx constipation regular stools with tube feeds
-bradycardia
-elevated LFT's
-recent foreign body found in patient's oropharynx with removal
Other medical problems:
-Recurrent UTIs
-Cerebral palsy, nonverbal
-Seizure disorder
-hx ovarian CA
Recommendations:
-Etiology of abnormal LFT's likely multifactorial secondary to hypotension with low flow state v DILI with recent antibiotics (Augmentin til 04/15) and polypharmacy v viral etiology as she is Flu B positive v other.
-Hepatitis serologies are negative. US imaging was normal. LFT's are not significantly changed or increasing.
- other labs for chronic liver disease pending
- transaminases stable elevation and can be followed outpatient
will sign off call with questions
Subjective
Subjective
Date of Service: April 20, 2024
Pt more alert today
Objective
Data Reviewed
Laboratory Data:
Laboratory Results
04/20/24 04:40
04/20/24 04:40
Laboratory Results
Phosphorus 3.2 mg/dl (2.5-4.5) 04/15/24 10:38
Magnesium 1.8 mg/dl (1.6-2.3) 04/20/24 04:40
Total Bilirubin 0.5 mg/dl (0.2-1.3) 04/20/24 04:40
AST 150 U/L (14-36) H 04/20/24 04:40
ALT 151 U/L (0-35) H 04/20/24 04:40
Alkaline Phosphatase 201 U/L (38-126) H 04/20/24 04:40
Vital Signs and I&O:
Vital Signs
Temp Pulse Resp BP Pulse Ox
97.8 F 91 20 128/77 93
04/20/24 08:00 04/20/24 08:53 04/20/24 08:00 04/20/24 08:53 04/20/24 08:00
I&O
04/19/24 04/20/24 04/21/24
06:59 06:59 06:59
Intake Total 780 / 780 570 / 570
Balance 780 / 780 570 / 570
Physical Exam
Physical Exam
HEENT: Anicteric
--- NOTE | 2024-04-20 14:29 | CM ---
Addendum entered by Kim Mcgregor 04/20/24 16:39:
Per Cecy at [facility], supplies will be delivered tomorrow at 1:00 p.m. Patient and father seen bedside, discussed plan for tentative discharge tomorrow. Father made aware, reports he will provide transportation home. IMM reviewed, signed, placed
in chart.
Plan; home with [facility], [facility], and [facility] equipment.
Addendum entered by Kim Mcgregor 04/20/24 15:36:
Spoke with Cristobal from [facility], requesting new script be faxed to [phone], sent to Cristobal. CM discussed plan for tentative discharge tomorrow.
Original Note:
CM reviewed chart, anticipated discharge tomorrow. Script for updated flush and tube feeding faxed to [facility]. Imani at [facility] aware of plan for anticipated discharge tomorrow. Phone call to Cristobal at [facility], line busy, will call back to
confirm delivery of suction equipment. Awaiting for confirmation from [facility] on delivery for tomorrow. CM will continue to follow for discharge planning needs.
Plan; home with [facility], [facility], and [facility].
[2024-04-20 16:16] VITALS: BP 111/77
[2024-04-20] MEDS: ProAmatine 15 MG TUBE (17:10)
[2024-04-20 18:15] LABS: Glucose - Point of Care 124 mg/dl (70-99)
[2024-04-20] MEDS: FEMARA 2.5 MG TUBE (22:40)
[2024-04-20] MEDS: SINGULAIR 10 MG TUBE (22:40)
[2024-04-20] MEDS: NON-FORMULARY ITEM 4 MG TUBE (22:40)
[2024-04-20 23:32] VITALS: BP 130/78
[2024-04-21 00:22] LABS: Glucose - Point of Care 117 mg/dl (70-99)
[2024-04-21 05:33] VITALS: BMI 25.8
[2024-04-21 06:29] LABS: Glucose - Point of Care 126 mg/dl (70-99)
[2024-04-21 06:59] LABS: % Basophils 0.5 % (0-2); % Eosinophils 1.6 % (0-6); % Immature Granulocytes 0.6 % (0-0.5); % Lymphocytes 17.8 % (20.5-51.1); % Neutrophils 59.5 % (42.2-75.2); Absolute Eosinophils 0.1 10^3/uL (0-0.7); Absolute Immature Granulocytes 0.1 10^3/uL (0-0.05); Absolute Lymphocytes 1.4 10^3/uL (1.2-3.4); Absolute Monocytes 1.6 10^3/uL (0.1-0.6); Absolute Neutrophils 4.6 10^3/uL (1.4-6.5); Hematocrit 32.3 % (37.0-47.0); Hemoglobin 11.1 g/dL (12.0-16.0); Mean Corp Hgb Conc. 34.4 g/dL (33.0-37.0); Mean Corpuscular Hgb 29.4 pg (27.0-31.0); Mean Corpuscular Volume 85.4 fL (81.0-99.0); Mean Platelet Volume 12.8 fL (7.4-10.4); Nucleated Red Blood Cells % 0 %; Platelet Count 199 10^3/uL (130-400); Red Blood Cell Count 3.78 10^6/uL (4.20-5.40); Red Cell Dist. Width 15.2 % (11.5-14.5); White Blood Cell Count 7.7 10^3/uL (4.8-10.8)
[2024-04-21 07:35] VITALS: BP 98/79
[2024-04-21 07:35] LABS: ALT (SGPT) 164 U/L (0-35); AST (SGOT) 161 U/L (14-36); Albumin 3.4 g/dl (3.5-5.0); Alkaline Phosphatase 225 U/L (38-126); Blood Urea Nitrogen 21 mg/dl (7-17); Calcium 9.6 mg/dl (8.4-10.2); Carbon Dioxide 27 mmol/L (22-30); Chloride 103 mmol/L (98-107); Estimated Creatinine Clearance 87 ml/min; Glucose 105 mg/dl (70-99); Potassium 4.6 mmol/L (3.5-5.1); Sodium 140 mmol/L (135-145); Total Bilirubin 0.4 mg/dl (0.2-1.3); Total Protein 6.5 g/dl (6.3-8.2); eGFR > 60.00
[2024-04-21] MEDS: DESENEX/MITRAZOL/ZEASORB 1 APPLIC TOPICAL (07:44)
[2024-04-21] MEDS: HEPARIN 5000 UNITS SC (07:44)
[2024-04-21] MEDS: VITAMIN C 500 MG TUBE (07:45)
[2024-04-21] MEDS: ProAmatine 15 MG TUBE (07:45)
[2024-04-21] MEDS: TRILEPTAL 600 MG TUBE (07:45)
[2024-04-21] MEDS: ONFI 10 MG TUBE (07:45)
[2024-04-21] MEDS: VISBIOME 1 CAP TUBE (07:46)
[2024-04-21] MEDS: TAMIFLU 75 MG TUBE (07:46)
--- NOTE | 2024-04-21 09:29 | W.PN.HOSP.TC ---
Today's Communication/Plan
-
Discharge today
Assessment / Plan
Assessment / Plan
Physical Exam
General: No Apparent Distress
HEENT: Moist Mucous Membranes
Respiratory: Clear to Auscultation (anteriorly)
Cardiac: Regular Rhythm and S1/S2
GI: Soft and Peg Tube.
Neuro: Awake and Alert
Psych: Calm
Assessment/Plan
HPI: 48-year-old with past medical history for seizure, cerebral palsy presented with shortness of breath. She was noted to be lethargic and jittery. History obtained primarily from family. Patient lives with her parents. She was noted to have
seizure activity with fever at home.
Patient was hypoxic on her usual 1 L of home oxygen. Patient received fluids and Zosyn in ER. Admitted for further management .
#Sepsis
#Acute on chronic respiratory failure with hypoxia due to suspected bilateral pneumonia with aspiration
#Recurrent aspiration
#Chronic dysphagia
-Currently on room air
-Finished antibiotics
-VSE done 04/14 - IDDSI 4 with mildly thick liquids
-Started PEG feeds-continue
-Aspiration precautions with HOB >30-45 degrees
#Fever on April 17, 2024
#Influenza B
-Tamiflu started on 04/17/24; continue for 1 more dose of 75 mg Tamiflu to be given later today (for a total of 10 doses)
#Chronic dysphagia
#History for esophageal web
-She is usually on a pur�ed diet with nectar thickened liquids
-Recs from VSE noted.
-Tube feeding at home: 'Four 8oz-cartons per day of Jevity 1.5 (provide 1 carton via PEG Tube at 08:00, 12:00, 16:00, and 20:00) to provide 948 ml total volume, 1422 kcal (98% needs), 60 gm protein (103% needs), and 25 ml/hr flush before and after
each feeding bolus to provide total of 200 ml free water flush. For medications, use 25 cc free water flush to administer medications.'
#Hyponatremia - RESOLVED - from SIADH likely from influenza, antiepileptic medications and recent tube feeding free water flushes
-Seems to have started after tube feeds started
-Have minimized free water flushes rate but sodium has not improved
-Consulted nephrology, recommendations appreciated
-Samsca was given
-Free water restriction as per home tube feeding instructions
#Acute Kidney Injury
-Suspected prerenal; poor PO intake reported at home
- Normalized Cr
#Mild transaminitis - possibly from infection/sepsis
-AST and ALT not improving as would be expected but relatively stable
-Consulted GI, recommendations appreciated -- on 04/20/24 via [place] [facility], GI mentioned that patient's liver abnormalities are chronic and may be due to one of her medications, patient's PCP can monitor patient's transaminases and no further work-up
to do inpatient at this time
#Acute on chronic hypotension
-Continue midodrine 15 mg 3 times daily with parameters
#Cerebral Palsy
#Seizure Disorder
- Stable.
- Back on her home AEDs
#History of Ovarian Cancer
- S/p surgery and then hormonal therapy.
- Has completed treatment x 5 years.
- Remains on letrozole at family preference.
#Functional quadriplegia due to cerebral palsy
- Dependent on family for all care
#DVT Prophylaxis: Heparin Subq
#Code Status: Full
Nutrition - cw TF
DW patient's father at bedside
More than 30 minutes spent in discharge including
Final examination of the patient
Summarizing hospital stay
Instructions for continuing care to all relevant caregivers
Preparation of discharge records, prescriptions, and referral forms
Total time spent (in minutes): 39
Anticipated Discharge: Today
Subjective/Interval History
-
Date of Service: April 21, 2024
Patient was seen and examined. Her father was present in the room, no new symptoms or issues overnight.
Objective Data
-
Labs:
Laboratory Results
04/21/24
04:54
WBC 7.7
Hgb 11.1 L
Hct 32.3 L
Plt Count 199
Sodium 140 D
Potassium 4.6
Chloride 103
Carbon Dioxide 27
BUN 21 H
Creatinine 0.5 L
Glucose 105 H
Calcium 9.6
Total Bilirubin 0.4
AST 161 H
ALT 164 H
Alkaline Phosphatase 225 H
Vital Signs:
Vital Signs
Temp Pulse Resp BP Pulse Ox
99.5 F 95 16 98/79 94
04/21/24 07:35 04/21/24 07:45 04/21/24 07:35 04/21/24 07:45 04/21/24 07:35
I&O
04/20/24 04/21/24 04/22/24
06:59 06:59 06:59
Intake Total 570 / 570 660 / 660
Balance 570 / 570 660 / 660
--- NOTE | 2024-04-21 10:27 | W.DS.TRANS ---
DC Summary - [facility]
-
Discharge Instructions:
Discharge Diagnosis/Procedures #Sepsis
#Acute on chronic respiratory failure with
hypoxia due to suspected bilateral pneumonia
with aspiration
#Recurrent aspiration
#Chronic dysphagia
#Fever on April 17, 2024 suspected secondary to
Influenza B
#Chronic dysphagia
#History for esophageal web
#Hyponatremia - RESOLVED - from SIADH likely
from influenza, antiepileptic medications and
recent tube feeding free water flushes
#Acute Kidney Injury
#Mild transaminitis - possibly from infection/
sepsis
#Acute on chronic hypotension
#Cerebral Palsy
#Seizure Disorder
#History of Ovarian Cancer
#Functional quadriplegia due to cerebral palsy
Diet Other diet
Additional Diets Four 8oz-cartons per day of Jevity 1.5 (provide
1 carton via PEG Tube at 08:00, 12:00, 16:00,
and 20:00) to provide 948 ml total volume, 1422
kcal (98% needs), 60 gm protein (103% needs),
and 25 ml/hr flush before and after each feeding
bolus to provide total of 200 ml free water
flush. For medications, use 25 cc free water
flush to administer medications.'
Blood Work CBC (with differential), CMP and Phosphorus
check by Wednesday04/24/24
Other Services VN
Instructions:
Stand-Alone Forms:
Changes to Home Medications: Yes
Discharge Medications:
DC Medications w/original date entered in [facility]
fluticasone propionate 50 mcg/actuation nasal spray,suspension 2 spray intranasal DAILY Allergies 03/17/24
Lactobac/Bifidobac [Visbiome] 1 cap feeding tube DAILY #14 caps 04/21/24
ascorbic acid (vitamin C) 500 mg tablet (Vitamin C) 500 mg feeding tube DAILY #30 tabs 04/21/24
bisacodyl 10 mg rectal suppository 10 mg MA [id number] PRN constipation #50 ea 04/21/24
cetirizine 10 mg tablet 10 mg feeding tube DAILYPRN PRN allergies #30 tabs 04/21/24
clobazam 10 mg tablet 10 mg feeding tube BID #60 tabs 04/21/24
docusate sodium 50 mg/5 mL oral liquid 100 mg (10 mL) feeding tube BIDPRN PRN constipation #0 mL 04/21/24
letrozole 2.5 mg tablet 2.5 mg feeding tube HS #30 tabs 04/21/24
midodrine 5 mg tablet 15 mg (3 x 5 mg) feeding tube BID AT 0800,1700 #180 tabs 04/21/24
montelukast 10 mg tablet 10 mg feeding tube HS #30 tabs 04/21/24
oseltamivir 6 mg/mL oral suspension 75 mg (12.5 mL) feeding tube BID #12.5 mL 04/21/24
oxcarbazepine 300 mg tablet 600 mg (2 x 300 mg) feeding tube BID #120 tabs 04/21/24
polyethylene glycol 3350 17 gram oral powder packet (HealthyLax) 17 g feeding tube DAILYPRN PRN constipation #100 ea 04/21/24
sennosides 8.8 mg/5 mL oral syrup 17.6 mg (10 mL) feeding tube HSPRN PRN constipation #120 mL 04/21/24
tiagabine 4 mg tablet 4 mg feeding tube HS Seizures #0 tabs 04/21/24
Home Medication Changes
Home meds have been converted from PO to feeding tube route
Tylenol stopped due to elevated AST and ALT -- can re-evaluated outpatient
Amoxicillin-Pot Clavulanate stopped
Pending Results: No
Total time spent discharging patient (in min): 39
[2024-04-21 11:13] VITALS: BP 115/63
--- NOTE | 2024-04-21 14:46 | CM ---
Patient with Dx Sepsis, Acute on chronic respiratory failure with hypoxia, suspected bilateral pneumonia with aspiration, dysphagia s/p PEG tube placement. Jevity tube feeds.
Spoke with [facility]; she confirms that she has the order for tube feeds & flushes and they will be delivering feeds & supplies to the home today at 1pm.
Spoke with [facility]; she confirms that she has the order for tube feeds & flushes and their nurse will train the patient this afternoon.
Spoke with patient's father Sajan; confirmed that [facility] will deliver to the home today at 1pm and [facility] nurse will meet with the patient after that. He will provide transport home today.
Plan home today with [facility] for tube feedings and [facility] for tube feed teaching.
[2024-04-21 20:13] LABS: ANA, IgG Reflex to HEp-2 None Detected (None Detected)
[2024-04-21 20:54] LABS: LKM-1 Ab (IgG) 17.3 U (0.0-24.9)
[2024-04-21 21:53] LABS: Alpha-1-Antitrypsin 276 mg/dL (90-200); Ceruloplasmin 39 mg/dL (16-45)
[2024-04-22 01:46] LABS: Endomysial IgA Antibody Titer <1:10 (<1:10)
[2024-04-23 12:05] LABS: Mitochondrial M2 Ab, IgG 7.1 Units (0.0-24.9)
[2024-04-23 20:37] LABS: Soluble Liver Antigen Ab 4.2 U (0.0-24.9)
--- NOTE | 2024-04-24 18:40 | W.DCSUMMARY ---
Discharge Summary
Discharge Data
Date of Admission: 04/07/24
Date of Discharge: 04/21/24
Total time spent discharging patient (in min): 39
-
Pending Results: No
Hospital Course
48-year-old female with past medical history of history of urinary tract infection, chronic hypotension, hypertension, seizure disorder, cerebral palsy, chronic dysphagia, esophageal web, ovarian cancer and functional quadriplegia due to cerebral
palsy, who presented with shortness of breath and hypoxia. Patient was recently hospitalized from March 23, 2024 to April 03, 2024 with sepsis and bilateral pneumonia. Patient's parents were present in the emergency room where patient was in and
assisted with the history. They report that patient's symptoms started a few hours after breakfast on the day of presentation, and the patient was 'jittery.' Patient was started on broad spectrum antibiotics and intravenous fluids in the setting of
acute kidney injury and suspected aspiration pneumonia. The next day patient developed worsening hypoxia and worsening hypotension, and transferred to the intensive care unit. Patient needed high flow nasal cannula. Given her high aspiration risk,
patient was made to be strict N.P.O. Patient's seizure medications were converted to intravenous equivalents after discussion with neurology. Given concerns of developing ARDS and pneumonia, patient was started on intravenous steroids, patient was
also started on diuresis. Patient had an echocardiogram which was unremarkable but did have a trivial pericardial effusion (however please see official echocardiogram report for full details). Patient's oxygenation requirements improved
significantly and she was soon oxygenating well on room air. Patient was noted to have some sinus bradycardia.
Gastroenterology was consulted for a PEG feeding tube; patient had a PEG tube placed on April 13, 2024. After video swallow study, patient was okay to be started on IDDSI 4 with mildly thick liquids by mouth, however there was a concern that patient
could still aspirate.
Patient had a fever, found to be positive for Influenza, and started on Tamiflu. Patient was noted to have hyponatremia around the time tube feeds were started, therefore patient's free water flushes were decreased, sodium still did not improve,
therefore nephrology was consulted. Patient received Samsca, and the plan was to minimize patient's free water via tube feeds going forward with close outpatient follow-up with repeat labwork.
Patient had elevated LFTs/transaminases, therefore gastroenterology was consulted after no improvement after a few days, ultrasound was done -- which was unremarkable, the elevated transaminases were thought to be multifactorial secondary to
hypotension with low flow state v DILI with recent antibiotics (Augmentin til 04/15) and polypharmacy v viral etiology as she is Flu B positive v other. Hepatitis Serologies were negative. Gastroenterology recommended outpatient work-up.
Discharge Plan
-
Patient Disposition: Home with Home Care
Discharge Diagnosis/Procedures: #Sepsis
#Acute on chronic respiratory failure with hypoxia due to suspected bilateral pneumonia with aspiration
#Recurrent aspiration
#Chronic dysphagia
#Fever on April 17, 2024 suspected secondary to Influenza B
#Chronic dysphagia
#History for esophageal web
#Hyponatremia - RESOLVED - from SIADH likely from influenza, antiepileptic medications and recent tube feeding free water flushes
#Acute Kidney Injury
#Mild transaminitis - possibly from infection/sepsis
#Acute on chronic hypotension
#Cerebral Palsy
#Seizure Disorder
#History of Ovarian Cancer
#Functional quadriplegia due to cerebral palsy
Condition: Fair
Diet: Other diet
Additional Diets: Four 8oz-cartons per day of Jevity 1.5 (provide 1 carton via PEG Tube at 08:00, 12:00, 16:00, and 20:00) to provide 948 ml total volume, 1422 kcal (98% needs), 60 gm protein (103% needs), and 25 ml/hr flush before and after each
feeding bolus to provide total of 200 ml free water flush. For medications, use 25 cc free water flush to administer medications.'
Blood Work: CBC (with differential), CMP and Phosphorus check by Wednesday04/24/24
Other Services: VN
Referrals:
Timbo Courtney MD [Family Provider] - in less than 1 week
Isiah Pettit MD [Active] - in two to three weeks (Hospital follow-up)
Cornelia Leiva MD [Active] - in one to two weeks (Hospital follow-up, transaminitis)
Alma Rosa Mark MD [Active] - in two to three weeks (Hospital Hyponatremia follow-up)
Additional Discharge Medication Instructions: Home meds have been converted from PO to feeding tube route
Tylenol stopped due to elevated AST and ALT -- can re-evaluated outpatient
Amoxicillin-Pot Clavulanate stopped
Prescriptions:
New
bisacodyl 10 mg Suppository
10 mg [place] [id number] PRN (Reason: constipation) Qty: 50 0RF
letrozole 2.5 mg Tablet
2.5 mg feeding tube HS Qty: 30 1RF
midodrine 5 mg Tablet
15 mg feeding tube BID AT 0800,1700 Qty: 180 1RF
polyethylene glycol 3350 [HealthyLax] 17 gram Powder In Packet
17 g feeding tube DAILYPRN PRN (Reason: constipation) Qty: 100 1RF
clobazam 10 mg Tablet
10 mg feeding tube BID Qty: 60 1RF
sennosides 8.8 mg/5 mL Syrup
17.6 mg feeding tube HSPRN PRN (Reason: constipation) Qty: 120 1RF
montelukast 10 mg Tablet
10 mg feeding tube HS Qty: 30 1RF
oseltamivir 6 mg/mL Suspension For Reconstitution
75 mg feeding tube BID Qty: 12.5 0RF
Rx Instructions:
1 more dose
oxcarbazepine 300 mg Tablet
600 mg feeding tube BID Qty: 120 1RF
Lactobac/Bifidobac [Visbiome]
1 cap feeding tube DAILY Qty: 14 0RF
ascorbic acid (vitamin C) [Vitamin C] 500 mg Tablet
500 mg feeding tube DAILY Qty: 30 1RF
cetirizine 10 mg Tablet
10 mg feeding tube DAILYPRN PRN (Reason: allergies) Qty: 30 0RF
Continued
fluticasone propionate 50 mcg/actuation [place],Suspension
2 spray INTRANASAL DAILY
Changed
tiagabine 4 mg Tablet
4 mg feeding tube HS Qty: 0 0RF
Patient Comments:
03/23/2024, crushed in applesauce.
docusate sodium 50 mg/5 mL Liquid
100 mg feeding tube BIDPRN PRN (Reason: constipation) Qty: 0 0RF
Discontinued
oxcarbazepine [Trileptal] 600 mg tablet
600 mg PO BID
Patient Comments:
03/23/2024, crushed in applesauce.
montelukast [Singulair] 10 mg Tablet
10 mg PO HS
Patient Comments:
03/23/2024, crushed in applesauce.
clobazam [Onfi] 10 mg Tablet
10 mg PO BID
Patient Comments:
03/23/2024, crushed in applesauce.
polyethylene glycol 3350 [Miralax] 17 gram Powder In Packet
17 g PO DAILY PRN (Reason: constipation)
cetirizine [Zyrtec] 10 mg Tablet
10 mg PO DAILY PRN (Reason: allergies)
Patient Comments:
03/23/2024, crushed in applesauce.
sennosides [senna] 8.8 mg/5 mL Syrup
17.6 mg PO HSPRN PRN (Reason: constipation)
ascorbic acid (vitamin C) [Vitamin C] 500 mg Tablet
500 mg PO DAILY
Patient Comments:
03/23/2024, crushed in applesauce.
letrozole 2.5 mg Tablet
2.5 mg PO HS
Patient Comments:
03/23/2024, crushed in applesauce.
Visbiome 112.5 billion cell Capsule
1 cap PO DAILY
Patient Comments:
03/23/2024, crushed in applesauce.
acetaminophen [Tylenol Extra Strength] 500 mg Tablet
1,000 mg PO Q6H PRN (Reason: mild pain)
Patient Comments:
03/23/2024, crushed in applesauce.
midodrine 5 mg tablet
15 mg PO BID
Patient Comments:
03/23/2024, crushed in applesauce.
amoxicillin-pot clavulanate 250-62.5 mg/5 mL Suspension For Reconstitution
10 ml PO Q12 Qty: 75 0RF
Patient Comments:
medication completed
Rx Instructions:
for 3 days
Discharge Orders:
Discharge Patient (As Directed); Ordered 04/21/24
Ordered By: Lauro Doe
Discharge Date and Time
Discharge Date/Time: 04/21/24 11:38
Print Language: MONGOLIAN
[2024-04-26 14:24] LABS: tTG IgG Antibody 16.8 EU/ml (0-19)
== END 2024-04-21 11:38 | disposition home health service (06) | DRG 871 ==
LOC: 2 NORTH 19:44
PROVIDERS: Internal Medicine; Nurse Practitioner Adult Health; Nurse Practitioner Family; ADMITTING PHYSICIAN Hospitalist; CONSULT PHYSICIAN Internal Medicine Critical Care Medicine; CONSULT PHYSICIAN Internal Medicine Gastroenterology; CONSULT PHYSICIAN Specialist; EMERGENCY PHYSICIAN Emergency Medicine; FAMILY PHYSICIAN Family Medicine
PROC: 5A0945A Assistance with Respiratory Ventilation, 24-96 Consecutive Hours, High Flow/Velocity Cannula (ICD-10-PCS; 2024-04-08)
PROC: 0DH63UZ Insertion of Feeding Device into Stomach, Percutaneous Approach (ICD-10-PCS; 2024-04-13)
DX: A41.9 Sepsis, unspecified organism (principal); I50.31 Acute diastolic (congestive) heart failure; J69.0 Pneumonitis due to inhalation of food and vomit; J96.21 Acute and chronic respiratory failure with hypoxia; R53.2 Functional quadriplegia; Q39.4 Esophageal web; J10.08 Influenza due to other identified influenza virus with other specified pneumonia; E87.0 Hyperosmolality and hypernatremia; N17.9 Acute kidney failure, unspecified; E22.2 Syndrome of inappropriate secretion of antidiuretic hormone; I11.0 Hypertensive heart disease with heart failure; G80.9 Cerebral palsy, unspecified; G40.909 Epilepsy, unspecified, not intractable, without status epilepticus; R13.12 Dysphagia, oropharyngeal phase; I95.89 Other hypotension; Z99.81 Dependence on supplemental oxygen; R65.20 Severe sepsis without septic shock; E86.0 Dehydration; E83.52 Hypercalcemia; K59.09 Other constipation; R74.01 Elevation of levels of liver transaminase levels; R79.89 Other specified abnormal findings of blood chemistry; R00.1 Bradycardia, unspecified; Z87.01 Personal history of pneumonia (recurrent); Z79.899 Other long term (current) drug therapy; Z87.440 Personal history of urinary (tract) infections; Z85.43 Personal history of malignant neoplasm of ovary; Z90.710 Acquired absence of both cervix and uterus; Z90.722 Acquired absence of ovaries, bilateral; Z88.2 Allergy status to sulfonamides; Z88.8 Allergy status to other drugs, medicaments and biological substances; Z91.040 Latex allergy status
CPT/HCPCS: 36600; 51701; 71045; 74018; 74230; 76700; 80048; 80053; 81003; 81015; 82103; 82390; 82570; 82728; 82784; 82805; 82962; 83516; 83540; 83550; 83605; 83735; 83880; 83930; 83935; 84100; 84300; 84443; 84484; 85025; 85027; 86038; 86231; 86376; 86381; 86704; 86705; 86706; 86708; 86709; 86803; 87040; 87086; 87340; 87449; 87502; 87811; 87899; 92526; 92610; 92611; 93005; 93306; 94640; 96365; 99291; C9254; J3480

== ENCOUNTER → 2024-05-08 10:11 | Outpatient (REF) | payer MEDICARE, OTHER, SELFPAY ==
[2024-05-08 12:38] LABS: ALT (SGPT) 123 U/L (0-35); AST (SGOT) 108 U/L (14-36); Albumin 3.7 g/dl (3.5-5.0); Alkaline Phosphatase 210 U/L (38-126); Blood Urea Nitrogen 33 mg/dl (7-17); Calcium 10.5 mg/dl (8.4-10.2); Carbon Dioxide 27 mmol/L (22-30); Chloride 107 mmol/L (98-107); Glucose 96 mg/dl (70-99); Potassium 4.2 mmol/L (3.5-5.1); Sodium 141 mmol/L (135-145); Total Bilirubin 0.4 mg/dl (0.2-1.3); Total Protein 6.8 g/dl (6.3-8.2); eGFR > 60.00
== END ==
LOC: HWLAB 10:11
PROVIDERS: ATTENDING PHYSICIAN Family Medicine
DX: R74.8 Abnormal levels of other serum enzymes (principal)
CPT/HCPCS: 36415; 80053

== ENCOUNTER 2024-06-12 19:25 | Inpatient (IN) | payer MEDICARE, OTHER, SELFPAY ==
[2024-06-12 13:35] VITALS: BP 112/57
--- NOTE | 2024-06-12 15:57 | ED.GENMED ---
History of Present Illness
General
Chief Complaint: Breathing Problem
Time Seen by Provider: 06/12/24 15:49
History of Present Illness
History of Present Illness:
48-year-old female with history of traumatic brain injury and cerebral palsy presents to the emergency department for evaluation of frequent low pulse oximetry over the past 3 to 4 days. Patient had recent recurrent aspiration pneumonia and was
most recently hospitalized in late March to early April. She was discharged with a feeding tube and was initially tube dependent however recently has begun swallow challenges with home nursing and there have been no reported episodes of aspiration
according to family. She has required 1 to 3 L of oxygen to maintain greater than 90% over the past 3 days. She does seem to be in distress still on the low oxygen. According to her father. Patient is nonverbal and can provide no history
Past History
Past History
ED Past Medical History: Seizures and Other (Cerebral palsy)
Social History
Tobacco: Non-smoker
Alcohol: None
Drug: None
Personal: Single
Living: with family
Employment: Not employed
Review of Systems
Review of Systems
Allergies reviewed?: Yes
All Other Systems: ROS reviewed and negative except as documented in HPI and ROS
Phy Exam
Physical Exam
Physical Exam:
GEN: Chronically ill-appearing, alert, nonverbal
Eyes: PERRLA, EOMs intact, no scleral icterus
HENT: NCAT, oral mucosa moist, no JVD, no cervical adenopathy.
Lungs: Poor inspiratory effort, no obvious wheezes or rales in the apices
Cardiac: RRR, no M/R/G, no peripheral edema. Radial pulses 2+ bilat
Abdomen: S, NT
Neuro: Eyes open, does not follow commands, nonverbal
MSK: No gross deformity or ecchymosis. No edema. No digital clubbing
Skin: No rashes, petechiae. Normal color, no pallor or jaundice.
Psych: Calm, cooperative, proper hygiene
Scores
Heart Failure Risk
Heart Failure Risk Score: Not Applicable
Course
Orders/Labs/Results
Orders:
Orders
06/12/24 Dinner
NPO
Allow oral meds: Yes
Allow clear liquids: No
06/12/24 15:57
Electrocardiogram (*1) Urgent
Reason for Study: Shortness of Breath
EKG- Treatment ONCE
CR Chest Single View Urgent
Reason For Exam: SOB
06/12/24 16:23
Comprehensive Metabolic Panel Urgent
D-Dimer Urgent
NT-proBNP Urgent
Troponin I Urgent
06/12/24 16:25
0.9% Sodium Chloride 500 ml [Nss] 500 ml IV BOLUS
06/12/24 16:31
COVID-19 Antigen Urgent
Source: Nasal Swab
06/12/24 18:[address] Non Medication Order As Directed
Physician Order: peripheral IV access in foot by RN authorized by Pilo Pate PA-C
Above order entered?: Yes
06/12/24 18:06
Complete Blood Count/With Diff Urgent
Procalcitonin Urgent
PCT Algorithmm Indication: Respiratory
06/12/24 18:19
Doxycycline [Vibramycin] 100 mg TUBE NOW STA
06/12/24 18:40
Admit/Transfer Patient As Directed
Co-Sign Provider:
Level of Care: Inpatient admission
Assign to:: Medical/Surgical
Physician / Group: mayra
Diagnosis: aspiration pnuemonia
Reason for Hospitalization: aspiration pneumonia
Expected length of stay greater than two midnights?: Yes
ELOS- Estimated Length of Stay in days: 2
I certify the patient meets the requirements for IP care: Yes
Code Status As Directed
Resuscitation Status: Full Code
06/12/24 19:10
Ampicillin/Sulbactam 3 G [Unasyn] 3 gm 0.9% Sodium Chloride 100 ml [Nss] 100 ml IV NOW
06/12/24 19:52
Bisacodyl [Dulcolax] 10 mg RECTAL [id number] PRN
Cetirizine HCl [Zyrtec] 10 mg TUBE DAILYPRN PRN
Docusate Sodium [Colace Liquid] 100 mg TUBE BIDPRN PRN
Polyethylene Glycol Powder [Miralax] 17 grams TUBE DAILYPRN PRN
Sennosides [Senna Syrup] 17.6 mg TUBE HSPRN PRN
06/12/24 19:52
OID Sealing Machine Operator Consult Routine
Reason for Consult: resume tube feeds
Activity As Directed
Activity Level: As Tolerated
Vital Signs As Directed
Frequency: Per unit guidelines
DX Deep Vein Thrombosis Video Routine
06/12/24 20:00
Clobazam (Non-Form) [Onfi] 10 mg TUBE BID
Heparin 5,000 units SC Q12
Oxcarbazepine [Trileptal] 600 mg TUBE BID
06/12/24 22:00
Buwqfjshm-Lne-Gvgh [Femara] 2.5 mg TUBE HS
Montelukast Sodium [Singulair] 10 mg TUBE HS
tiagabine See Dose Instructions TUBE HS
06/13/24 02:00
Ampicillin/Sulbactam 3 G [Unasyn] 3 gm 0.9% Sodium Chloride 100 ml [Nss] 100 ml IV Q6H
06/13/24 06:00
Complete Blood Count/With Diff IN AM
Comprehensive Metabolic Panel IN AM
06/13/24 08:00
Ascorbic Acid [Vitamin C] 500 mg TUBE DAILY
Doxycycline Hyclate [Vibramycin] 100 mg 0.9% Sodium Chloride 250 ml [Nss] 250 ml IV Q12H
Midodrine [ProAmatine] 15 mg TUBE BID AT 0800,1700
fluticasone propionate 2 spray NASAL DAILY
Abnormal Lab Results
07/29/24 07/29/24
16:23 18:06
RBC 4.14 L 10^6/uL
(4.20-5.40)
MCHC 32.7 L g/dL
(33.0-37.0)
RDW 14.6 H %
(11.5-14.5)
MPV 11.4 H fL
(7.4-10.4)
Absolute Monos (auto) 0.9 H 10^3/uL
(0.1-0.6)
Lymphocytes % 18.9 L %
(20.5-51.1)
Monocytes % 11.3 H %
(1.7-9.3)
D-Dimer 0.94 H ug/mlFEU
(0.00-0.50)
Carbon Dioxide 31 H mmol/L
(22-30)
BUN 37 H mg/dl
(7-17)
Calcium 10.3 H mg/dl
(8.4-10.2)
AST 63 H U/L
(14-36)
ALT 40 H U/L
(0-35)
Alkaline Phosphatase 147 H U/L
(38-126)
Albumin 3.1 L g/dl
(3.5-5.0)
06/12/24 18:06
06/12/24 16:23
Vital Signs
Initial and Last Documented VS:
Initial Vital Signs
Pulse Resp BP Pulse Ox
69 20 112/57 95
06/12/24 13:35 06/12/24 13:35 06/12/24 13:35 06/12/24 13:35
Last Documented Vital Signs
Temp Pulse Resp BP Pulse Ox
99.3 F 95 20 86/68 92
06/12/24 20:10 06/12/24 20:10 06/12/24 20:10 06/12/24 20:10 06/12/24 20:10
MDM/Problems Addressed
MDM/Problems Addressed:
48 yo female presents w/ hypoxia likely from bilateral pneumonia. WBC normal and procal negative, viral pathology most likely. Does have slightly elevated D dimer however given lung findings, favor this to be false positive and do not see indication
for CTA chest at this time. Will cover empirically w/ broad spectrum abx and admit to the hospitalist service for further workup
*Critical Care Note
Total Time (30-74mins, 75-104mins- exclusive of procedures): Not Applicable
ED Attending Note
-
Portions of this chart may have been created with voice recognition software.� Occasional wrong word or��sound alike� substitutions may have occurred due to the inherent limitations of voice recognition software.
Discharge Plan
Departure
Patient Disposition: Admit
Date of Disposition: 06/12/24
Time of Disposition: 18:21
Presentation/result/management discussed w/ accepting MD/DO: Hospitalist
Discharge Problem:
Bilateral pneumonia, Acute hypoxic respiratory failure
Interventions
Interventions:
*Risk Screen - Suicide Last Done: 06/12/24 13:35
*General Assessment Last Done: 06/12/24 13:35
*Neglect/Abuse Screening Last Done: 06/12/24 13:35
ED- Fall Risk Assessment Last Done: 06/12/24 19:55
*ED COVID-19 Vaccine History Last Done: 06/12/24 20:24
*Nursing Disposition Last Done: 06/12/24 19:55
ED- Cardiac Assessment Last Done: 06/12/24 16:20
ED- Pulmonary Assessment Last Done: 06/12/24 16:20
Discharge Date and Time
Discharge Date/Time: 06/12/24 19:55
[2024-06-12 16:52] LABS: D-Dimer 0.94 ug/mlFEU (0.00-0.50)
[2024-06-12 16:56] LABS: COVID-19 Antigen Negative (Negative)
[2024-06-12 17:03] LABS: ALT (SGPT) 40 U/L (0-35); AST (SGOT) 63 U/L (14-36); Albumin 3.1 g/dl (3.5-5.0); Alkaline Phosphatase 147 U/L (38-126); Blood Urea Nitrogen 37 mg/dl (7-17); Calcium 10.3 mg/dl (8.4-10.2); Carbon Dioxide 31 mmol/L (22-30); Chloride 104 mmol/L (98-107); Glucose 81 mg/dl (70-99); Potassium 4.2 mmol/L (3.5-5.1); Sodium 138 mmol/L (135-145); Total Bilirubin 0.4 mg/dl (0.2-1.3); Total Protein 6.4 g/dl (6.3-8.2); eGFR > 60.00
[2024-06-12 17:14] LABS: NT-proBNP 197 pg/ml; Troponin I < 0.012 ng/ml
[2024-06-12] MEDS: NSS 500 IV (17:45)
[2024-06-12 18:04] VITALS: BP 153/102
[2024-06-12 18:14] LABS: % Basophils 0.5 % (0-2); % Eosinophils 2.5 % (0-6); % Immature Granulocytes 0.5 % (0-0.5); % Lymphocytes 18.9 % (20.5-51.1); % Monocytes 11.3 % (1.7-9.3); % Neutrophils 66.3 % (42.2-75.2); Absolute Eosinophils 0.2 10^3/uL (0-0.7); Absolute Lymphocytes 1.5 10^3/uL (1.2-3.4); Absolute Monocytes 0.9 10^3/uL (0.1-0.6); Absolute Neutrophils 5.3 10^3/uL (1.4-6.5); Hematocrit 37.3 % (37.0-47.0); Hemoglobin 12.2 g/dL (12.0-16.0); Mean Corp Hgb Conc. 32.7 g/dL (33.0-37.0); Mean Corpuscular Hgb 29.5 pg (27.0-31.0); Mean Corpuscular Volume 90.1 fL (81.0-99.0); Mean Platelet Volume 11.4 fL (7.4-10.4); Nucleated Red Blood Cells % 0 %; Platelet Count 208 10^3/uL (130-400); Red Blood Cell Count 4.14 10^6/uL (4.20-5.40); Red Cell Dist. Width 14.6 % (11.5-14.5)
--- NOTE | 2024-06-12 18:44 | HPS.HSE ---
Addendum entered and electronically signed by Ernesto Holliday MD 06/12/24 18:49:
Continue antiseizure medications through PEG tube, letrozole, bowel regimen, midodrine for hypotension.
Original Note:
Family Physician
-
Family Physician: Timbo Courtney
Chief Complaint
-
hypoxia
History of Present Illness
48-year-old female past medical history of seizures, cerebral palsy with functional quadriplegia nonverbal at baseline, chronic dysphagia, recurrent aspiration, esophageal web, chronic hypotension, ovarian cancer, presenting with low pulse oximetry
for the past 3 to 4 days. She has cough but no vomiting or diarrhea.
She was recently admitted from 04/07 to 04/21 with aspiration pneumonia complicated by ARDS treated with broad-spectrum antibiotics and IV fluids and later diuresis and steroids. He was also found to be positive for influenza A treated with Tamiflu.
Patient also had a PEG tube placed at that time. After video swallow evaluation patient was cleared to start IDDS 4 mildly thick liquids by mouth although she could still aspirate. Recently she has begun swallowing challenges with home nursing 3
days ago and there have been no reported episodes of aspiration according to family. No fevers or chills.
Medical History
Past Medical History
Past Medical History: Reports Other (seizures, cerebral palsy with functional quadriplegia nonverbal at baseline, chronic dysphagia, recurrent aspiration, esophageal web, chronic hypotension, ovarian cancer)
Past Surgical History: Reports None
Social History
Tobacco: Non-smoker
Alcohol: None
Drug: None
Family History
Family History: Not pertinent
Allergies / Home Medications
Allergies reflects when Allergies were last updated in [employer].
Home Medications with original date entered in [employer]
Allergy/Medication List:
Allergies
Allergy/AdvReac Type Severity Reaction Status Date / Time
brompheniramine Allergy hyper Verified 06/12/24 13:38
[From Dimetapp Cold-Allergy
(PE)]
cephalexin [From Keflex] Allergy Unknown Verified 06/12/24 13:40
chloral hydrate Allergy hyper Verified 06/12/24 13:38
diphenhydramine Allergy hyper Verified 06/12/24 13:38
[From Benadryl]
latex Allergy Swelling Verified 06/12/24 13:38
levofloxacin Allergy Unknown Verified 06/12/24 13:40
phenobarbital Allergy hyper Verified 06/12/24 13:38
phenylephrine Allergy hyper Verified 06/12/24 13:38
[From Dimetapp Cold-Allergy
(PE)]
phenytoin [From Dilantin] Allergy Rash Verified 06/12/24 13:38
Sulfa (Sulfonamide Allergy Hives Verified 06/12/24 13:38
Antibiotics)
topiramate [From Topamax] Allergy Rash Verified 06/12/24 13:38
Home Medications
fluticasone propionate 50 mcg/actuation nasal spray,suspension 2 spray intranasal DAILY Allergies 03/17/24
Lactobac/Bifidobac [Visbiome] 1 cap feeding tube DAILY #14 caps 04/21/24
ascorbic acid (vitamin C) 500 mg tablet (Vitamin C) 500 mg feeding tube DAILY #30 tabs 04/21/24
bisacodyl 10 mg rectal suppository 10 mg [place] [id number] PRN constipation #50 ea 04/21/24
cetirizine 10 mg tablet 10 mg feeding tube DAILYPRN PRN allergies #30 tabs 04/21/24
clobazam 10 mg tablet 10 mg feeding tube BID #60 tabs 04/21/24
docusate sodium 50 mg/5 mL oral liquid 100 mg (10 mL) feeding tube BIDPRN PRN constipation #0 mL 04/21/24
letrozole 2.5 mg tablet 2.5 mg feeding tube HS #30 tabs 04/21/24
midodrine 5 mg tablet 15 mg (3 x 5 mg) feeding tube BID AT 0800,1700 #180 tabs 04/21/24
montelukast 10 mg tablet 10 mg feeding tube HS #30 tabs 04/21/24
oseltamivir 6 mg/mL oral suspension 75 mg (12.5 mL) feeding tube BID #12.5 mL 04/21/24
oxcarbazepine 300 mg tablet 600 mg (2 x 300 mg) feeding tube BID #120 tabs 04/21/24
polyethylene glycol 3350 17 gram oral powder packet (HealthyLax) 17 g feeding tube DAILYPRN PRN constipation #100 ea 04/21/24
sennosides 8.8 mg/5 mL oral syrup 17.6 mg (10 mL) feeding tube HSPRN PRN constipation #120 mL 04/21/24
tiagabine 4 mg tablet 4 mg feeding tube HS Seizures #0 tabs 04/21/24
Review of Systems
-
History Source: Patient
A 12 point ROS was completed and negative except as noted: Yes
Constitutional: Reports No Symptoms
EENT: Reports No Symptoms
Respiratory: Reports See HPI
Cardiac: Reports No Symptoms
Abdomen/GI: Reports No Symptoms
: Reports No Symptoms
Musculoskeletal: Reports No Symptoms
Skin: Reports No Symptoms
Neurological: Reports No Symptoms
Endocrine: Reports No Symptoms
Hematologic/Lymphatic: Reports No Symptoms
Psych: Reports No Symptoms
Physical Exam
Vital Signs
Vital Signs
Pulse Resp BP Pulse Ox
69 20 112/57 93
06/12/24 13:35 06/12/24 13:35 06/12/24 13:35 06/12/24 16:20
Physical Exam
General: Well Developed, Well Nourished and No Apparent Distress
HEENT: NormoCephalic, Moist mucous membranes and Atraumatic
Respiratory: Clear
Cardiac: S1/S2 and Regular Rhythm; No Murmur or Rub
GI: Soft, Non Tender, Non Distended and Normal Bowel Sounds; No Organomegaly
Rectal: Deferred by Provider
Musculoskeletal: No Clubbing, No Cyanosis and No Edema
Skin: No Rash
Neuro: Nonfocal/grossly intact
Laboratory Results
-
06/12/24 18:06
06/12/24 16:23
Laboratory Results
Total Bilirubin 0.4 mg/dl (0.2-1.3) 06/12/24 16:23
AST 63 U/L (14-36) H 06/12/24 16:23
ALT 40 U/L (0-35) H 06/12/24 16:23
Alkaline Phosphatase 147 U/L (38-126) H 06/12/24 16:23
Troponin I < 0.012 ng/ml 06/12/24 16:23
Data Reviewed
-
Lab Data: Labs Reviewed by me
Old Records: Reviewed
Impression/Plan
-
IMPRESSION:
PLAN:
# Hypoxic respiratory insufficiency secondary to likely aspiration pneumonia from introduction of oral fluid
# History of recurrent aspiration
-COVID-negative
-Chest x-ray shows moderate-sized airspace opacities in the right mid/lower lung in the left lower lobe suspicious for bilateral pneumonia
-Unasyn, doxycycline
-N.p.o., continue medications through PEG tube
# Chronic improving transaminitis
-Attributed to influenza/hypotension previously
Chronic dysphagia with PEG tube
-Nutrition consulted to resume tube feeds
History of esophageal with
Cerebral palsy with functional quadriplegia
Seizure history
Chronic hypotension
Ovarian cancer
-S/p surgery and then hormonal therapy.
-Has completed treatment x 5 years.
-Remains on letrozole at family preference.
Full code
DVT prophylaxis�heparin
IDD4 diet
[2024-06-12] MEDS: VIBRAMYCIN 100 MG TUBE (19:10)
[2024-06-12 19:28] VITALS: BP 110/56
[2024-06-12] MEDS: UNASYN IV (19:31)
[2024-06-12 19:37] LABS: Procalcitonin 0.07 ng/ml (0.0-0.25)
[2024-06-12 20:10] VITALS: BP 86/68; BMI 25.8
[2024-06-12] MEDS: HEPARIN 5000 UNITS SC (21:32)
[2024-06-12] MEDS: FEMARA 2.5 MG TUBE (21:34)
[2024-06-12] MEDS: ONFI 10 MG TUBE (21:35)
[2024-06-12] MEDS: TRILEPTAL 600 MG TUBE (21:35)
[2024-06-12] MEDS: SINGULAIR 10 MG TUBE (21:35)
[2024-06-12 21:59] VITALS: BP 129/65
[2024-06-12 23:30] VITALS: BP 106/70
[2024-06-13] MEDS: UNASYN IV ×3 (02:05→14:13)
[2024-06-13 05:02] VITALS: BMI 25.8
[2024-06-13 06:54] LABS: ALT (SGPT) 39 U/L (0-35); AST (SGOT) 72 U/L (14-36); Alkaline Phosphatase 118 U/L (38-126); Blood Urea Nitrogen 32 mg/dl (7-17); Calcium 9.9 mg/dl (8.4-10.2); Carbon Dioxide 24 mmol/L (22-30); Chloride 109 mmol/L (98-107); Estimated Creatinine Clearance 74 ml/min; Glucose 75 mg/dl (70-99); Potassium 4.5 mmol/L (3.5-5.1); Sodium 139 mmol/L (135-145); Total Bilirubin 0.7 mg/dl (0.2-1.3); Total Protein 6.1 g/dl (6.3-8.2); eGFR > 60.00
[2024-06-13 07:35] VITALS: BP 123/82
[2024-06-13] MEDS: ProAmatine 15 MG TUBE ×2 (08:24→17:25)
[2024-06-13] MEDS: TRILEPTAL 600 MG TUBE ×2 (08:24→21:20)
[2024-06-13] MEDS: HEPARIN SC ×2 (08:24→08:38)
[2024-06-13] MEDS: VITAMIN C 500 MG TUBE (08:25)
[2024-06-13] MEDS: ONFI 10 MG TUBE ×2 (08:25→21:20)
[2024-06-13 08:43] LABS: % Basophils 0.4 % (0-2); % Eosinophils 2.9 % (0-6); % Immature Granulocytes 0.6 % (0-0.5); % Lymphocytes 22.2 % (20.5-51.1); % Monocytes 11.9 % (1.7-9.3); Absolute Eosinophils 0.1 10^3/uL (0-0.7); Absolute Lymphocytes 1.1 10^3/uL (1.2-3.4); Absolute Monocytes 0.6 10^3/uL (0.1-0.6); Hematocrit 33.9 % (37.0-47.0); Hemoglobin 11.5 g/dL (12.0-16.0); Mean Corp Hgb Conc. 33.9 g/dL (33.0-37.0); Mean Corpuscular Hgb 29.5 pg (27.0-31.0); Mean Corpuscular Volume 86.9 fL (81.0-99.0); Mean Platelet Volume 11.6 fL (7.4-10.4); Nucleated Red Blood Cells % 0 %; Platelet Count 168 10^3/uL (130-400); Red Cell Dist. Width 14.4 % (11.5-14.5); White Blood Cell Count 4.8 10^3/uL (4.8-10.8)
--- NOTE | 2024-06-13 10:00 | PTCARENOTE ---
Patient's mother came to doorway to let this RN know of red rash on patient's face, neck, and upper chest that appeared during administration of scheduled IV Unasyn. Antibiotic administration complete at time of mother coming to doorway and this RN
coming to bedside. Vitals taken by romie martinez. made aware, PRN Zyrtec administered by this RN through patient's PEG tube. MD to come to bedside to assess further.
[2024-06-13] MEDS: ZYRTEC 10 MG TUBE (10:10)
[2024-06-13] MEDS: VIBRAMYCIN 100 MG TUBE ×2 (10:39→21:20)
[2024-06-13 11:38] VITALS: BP 125/70
--- NOTE | 2024-06-13 12:33 | CM ---
Reviewed the chart notes and spoke with the patient's parents at the bedside. The patient resides with her parents in a one story home with a ramp to enter. The patient has a wheelchair, shower chair, shower rails, hospital bed, brijesh lift, and
home oxygen through [facility]. The patient has a PEG tube in place and receives feeding supplies through [facility]. The patient's medical history includes: seizures, cerebral palsy with functional quadriplegia nonverbal at baseline,
chronic dysphagia, recurrent aspiration, esophageal web, chronic hypotension, and ovarian cancer. The patient is current with [facility] where she is receiving ST currently. The patient's pharmacy of choice is the [facility] Vic Haq CM
continues to be available to patient/family and is monitoring medical plan for needs at discharge.
Plan: Discharge to home with resumption of [facility] services.
--- NOTE | 2024-06-13 14:20 | W.PN.HOSP.TC ---
Today's Communication/Plan
-
Continue antibiotics
Wean oxygen as tolerated
Assessment / Plan
Assessment / Plan
48-year-old female with history of several palsy with functional quadriplegia nonverbal at baseline and chronic dysphagia presented with hypoxia. Patient has a PEG tube but after video swallow evaluation she was cleared for IDDSI 4 with thick
liquids by mouth. She recently started with swallowing challenges at home with nursing and speech therapy.
Seen and examined. Multiple family members at bedside
Patient is awake. Does not consistently follow directions
Mildly tachypneic
Rales bilateral bases on chest exam
Cardiovascular system S1-S2 appreciated
Abdomen PEG tube soft and nontender
No pedal edema
No rashes noted on the right shoulder which she reportedly had this morning after Unasyn.
# Acute hypoxic respiratory insufficiency likely secondary to aspiration pneumonia
History of recurrent aspiration
N.p.o. with PEG tube feedings
Aspiration precautions and head of bed elevation
Chest x-ray reviewed by me-airspace opacities in the right mid and lower lung and also in the left lower lung suspicious for pneumonia
COVID screen negative
Started on Unasyn and doxycycline-she had mild redness on the shoulder after Unasyn infusion therefore changed to enteral route through the PEG tube.
Dietary consulted. With bolus feedings at home may not be a good idea in her case. I had suggested that overnight continuous feeds with daytime p.o. intake after speech clearance would be best.
Mom noted that when she fed her patient did not have any cough
# Transaminitis
Ultrasound of the abdomen 04/12/2024-normal liver size. Normal echogenicity
GI evaluated here during admission in April
# Chronic dysphagia with PEG tube
Recently started tube feeds
Speech evaluation
# Cerebral palsy with functional quadriplegia
# History seizures-continue clobazam, oxcarbazepine
# Chronic hypotension on midodrine
# History of ovarian cancer with surgery and then hormonal therapy
Remains on letrozole
# Recurrent UTI on nitrofurantoin prophylaxis
# DVT prophylaxis-Lovenox
# Full code
Discussed with multiple family members at bedside in detail. All questions were answered
Discussed with nursing
Time more than 50 min
Anticipated Discharge: 24 - 48 hours
Subjective/Interval History
-
Date of Service: June 13, 2024
Objective Data
-
Labs:
Laboratory Results
06/13/24 06/13/24 06/13/24
04:56 04:59 08:14
WBC Cancelled 4.8
Hgb Cancelled 11.5 L
Hct Cancelled 33.9 L
Plt Count Cancelled 168
Sodium 139
Potassium 4.5
Chloride 109 H
Carbon Dioxide 24
BUN 32 H
Creatinine 0.7
Glucose 75
Calcium 9.9
Total Bilirubin 0.7
AST 72 H
ALT 39 H
Alkaline Phosphatase 118
Vital Signs:
Vital Signs
Temp Pulse Resp BP Pulse Ox
97.3 F 81 16 125/70 91
06/13/24 11:38 06/13/24 11:38 06/13/24 11:38 06/13/24 11:38 06/13/24 11:38
[2024-06-13 15:35] VITALS: BP 121/67
[2024-06-13 15:37] VITALS: BMI 25.8
--- NOTE | 2024-06-13 16:14 | PTOTSP ---
SPEECH THERAPY SWALLOW EVALUATION:
Patient exhibits clinical signs of oropharyngeal dysphagia, likely chronic related to Cerebral Palsy and acutely exacerbated by aspiration pneumonia. Patient remains at high for aspiration and related complications given current tenuous pulmonary
status, lethargy, decreased mobility at baseline, and poor oral hygiene. Patient also is at high risk for post-prandial aspiration given esophageal web and PEG tube feedings, with patient's father reporting 2-3 episodes of regurgitation of tube
feedings 2 weeks ago. At this time, recommending NPO with PEG tube for all nutrition/medication/hydration, as patient appears with more severe oropharyngeal dysphagia than during last admission due to acuity of illness at this time. Suspect when
patient improves medically, pt may be able to safely tolerate puree textures and Mildly-thick liquids for pleasure given recent VSE results with patient able to tolerate puree textures and Mildly-thick liquids without aspiration when patient is at
baseline level of function. Patient will likely be chronically at risk for aspiration and related complications given significant risk factors. Speech therapy to follow, determine readiness for additional p.o. trials when appropriate, provide
continued family education regarding aspiration risks/precautions, oral care, and swallow function, and provide continued diagnostic swallow therapy as appropriate.
RECOMMEND:
1) NPO at this time
2) use PEG tube in place for all nutrition/medication/hydration
3) ST to follow and assess readiness for p.o. trials of puree textures and mildly-thick liquids for pleasure and QOL considerations
4) ST to provide continued education to family regarding aspiration precautions, oral care, and swallow function
--- NOTE | 2024-06-13 17:00 | PTCARENOTE ---
Patient initiated on TF per dietary, Jevity 1.5 at 45 ml/hr with 25 ml/hr flush through LUQ PEG tube. TF pump set up and verified with Samantha MUELLER.
[2024-06-13] MEDS: AUGMENTIN 250 MG/5 ML 500 MG TUBE (17:25)
[2024-06-13] MEDS: LOVENOX 40 MG SC (17:25)
[2024-06-13] MEDS: FEMARA 2.5 MG TUBE (21:19)
[2024-06-13] MEDS: SINGULAIR 10 MG TUBE (21:20)
[2024-06-13 23:00] VITALS: BP 135/76
[2024-06-14] MEDS: AUGMENTIN 250 MG/5 ML 500 MG TUBE ×3 (00:49→18:03)
[2024-06-14 07:35] VITALS: BP 97/56
[2024-06-14] MEDS: ONFI 10 MG TUBE ×2 (08:26→21:29)
[2024-06-14] MEDS: ProAmatine 15 MG TUBE ×2 (08:26→18:03)
[2024-06-14] MEDS: VITAMIN C 500 MG TUBE (08:26)
[2024-06-14] MEDS: TRILEPTAL 600 MG TUBE ×2 (08:26→21:29)
[2024-06-14 09:54] LABS: Hematocrit 35.4 % (37.0-47.0); Hemoglobin 11.9 g/dL (12.0-16.0); Mean Corp Hgb Conc. 33.6 g/dL (33.0-37.0); Mean Corpuscular Hgb 29.1 pg (27.0-31.0); Mean Corpuscular Volume 86.6 fL (81.0-99.0); Mean Platelet Volume 11.5 fL (7.4-10.4); Platelet Count 249 10^3/uL (130-400); Red Blood Cell Count 4.09 10^6/uL (4.20-5.40); White Blood Cell Count 7.3 10^3/uL (4.8-10.8)
[2024-06-14 10:32] LABS: ALT (SGPT) 45 U/L (0-35); AST (SGOT) 69 U/L (14-36); Alkaline Phosphatase 175 U/L (38-126); Blood Urea Nitrogen 31 mg/dl (7-17); Calcium 9.8 mg/dl (8.4-10.2); Carbon Dioxide 24 mmol/L (22-30); Chloride 104 mmol/L (98-107); Direct Bilirubin 0.3 mg/dl (0.0-0.4); Estimated Creatinine Clearance 74 ml/min; Glucose 137 mg/dl (70-99); Potassium 4.2 mmol/L (3.5-5.1); Sodium 133 mmol/L (135-145); Total Bilirubin 0.4 mg/dl (0.2-1.3); Total Protein 6.2 g/dl (6.3-8.2); eGFR > 60.00
--- NOTE | 2024-06-14 12:07 | W.PN.HOSP.TC ---
Today's Communication/Plan
-
Wean off oxygen
Bowel regimen
Repeat x-ray in the morning
Aspiration precautions
Case management to look into tube feeds/pump/supplies at home
Dietary to make recommendations regarding continuous tube feeds at night
Speech therapy to follow to see if/when she is able to take p.o.
Possible discharge tomorrow
Assessment / Plan
Assessment / Plan
48-year-old female with history of several palsy with functional quadriplegia nonverbal at baseline and chronic dysphagia presented with hypoxia. Patient has a PEG tube but after video swallow evaluation she was cleared for IDDSI 4 with thick
liquids by mouth. She recently started with swallowing challenges at home with nursing and speech therapy.
Seen and examined. Father at bed side
Patient is awake. Does not consistently follow directions
Mostly CTA
Cardiovascular system S1-S2 appreciated
Abdomen PEG tube soft and nontender
No pedal edema
# Acute hypoxic respiratory insufficiency likely secondary to aspiration pneumonia
History of recurrent aspiration
N.p.o. with PEG tube feedings
Aspiration precautions and head of bed elevation
Chest x-ray reviewed by me-airspace opacities in the right mid and lower lung and also in the left lower lung suspicious for pneumonia
COVID screen negative
Started on Unasyn and doxycycline-she had mild redness on the shoulder after Unasyn infusion therefore changed to enteral route through the PEG tube.
Dietary consulted. With bolus feedings at home may not be a good idea in her case. I had suggested that overnight continuous feeds with daytime p.o. intake after speech clearance would be best.
Mom noted that when she fed her patient did not have any cough
Speech to continue to follow-up at home for pleasure feedings during the daytime if allowed.
Discussed case management to arrange a pump as the family does not have a pump at present for bolus feedings.
Podiatry is also looking into plant based
Wean off oxygen
# Transaminitis
Ultrasound of the abdomen 04/12/2024-normal liver size. Normal echogenicity
GI evaluated here during admission in April
# Chronic dysphagia with PEG tube
Recently started tube feeds
Speech evaluation
# Constipation-add bowel regimen. Family was giving him Senokot however stopped MiraLAX. I will add that.
# Cerebral palsy with functional quadriplegia
# History seizures-continue clobazam, oxcarbazepine
# Chronic hypotension on midodrine
# History of ovarian cancer with surgery and then hormonal therapy
Remains on letrozole
# Recurrent UTI on nitrofurantoin prophylaxis
# DVT prophylaxis-Lovenox
# Full code
Discussed with father at bed side
D/W Case management re tube feed supplies set up at home
If PCP is aware I will give the initial prescription for plant-based tube feeds-per recommendations from dietitian
Discussed with nursing
Time more than 50 min
Anticipated Discharge: Within 24 hours
Subjective/Interval History
-
Date of Service: June 14, 2024
Objective Data
-
Labs:
Laboratory Results
06/14/24
09:23
WBC 7.3
Hgb 11.9 L
Hct 35.4 L
Plt Count 249 D
Sodium 133 L
Potassium 4.2
Chloride 104
Carbon Dioxide 24
BUN 31 H
Creatinine 0.7
Glucose 137 H
Calcium 9.8
Total Bilirubin 0.4
AST 69 H
ALT 45 H
Alkaline Phosphatase 175 H
Vital Signs:
Vital Signs
Temp Pulse Resp BP Pulse Ox
98.3 F 79 16 97/56 96
06/14/24 07:35 06/14/24 07:35 06/14/24 07:35 06/14/24 07:35 06/14/24 07:35
I&O
06/13/24 06/14/24 06/15/24
06:59 06:59 06:59
Intake Total 780 / 780
Balance 780 / 780
[2024-06-14] MEDS: SENNA SYRUP 17.6 MG TUBE ×2 (13:04→21:22)
[2024-06-14] MEDS: MILK OF MAGNESIA 30 ML TUBE (13:04)
[2024-06-14] MEDS: MIRALAX 17 GRAMS TUBE (13:05)
[2024-06-14] MEDS: VIBRAMYCIN 100 MG TUBE ×2 (13:05→21:21)
--- NOTE | 2024-06-14 14:17 | CM ---
Reviewed the chart notes and spoke with the patient and her parents at the bedside. CM contacted [facility] Liaison to inquire about obtaining TF pump for anticipated evening feeding schedule. Per Cecy, she will contact her office to
insure that pumps are in stock and let CM know process of obtaining for the patient. The patient is on service with [facility]. CM continues to be available to patient/family and is monitoring medical plan for needs at discharge.
Plan: Discharge back to home with TF via [facility] and [facility].
[2024-06-14 15:35] VITALS: BP 128/58
[2024-06-14] MEDS: LOVENOX 40 MG SC (18:03)
[2024-06-14] MEDS: SINGULAIR 10 MG TUBE (21:23)
[2024-06-14] MEDS: FEMARA 2.5 MG TUBE (21:23)
[2024-06-14] MEDS: COLACE LIQUID 100 MG TUBE (21:23)
[2024-06-14 23:07] VITALS: BP 114/76
[2024-06-15] MEDS: AUGMENTIN 250 MG/5 ML 500 MG TUBE ×3 (00:08→17:04)
[2024-06-15 07:45] VITALS: BP 113/87
[2024-06-15 07:57] LABS: ALT (SGPT) 43 U/L (0-35); AST (SGOT) 62 U/L (14-36); Albumin 2.9 g/dl (3.5-5.0); Alkaline Phosphatase 151 U/L (38-126); Blood Urea Nitrogen 30 mg/dl (7-17); Calcium 9.9 mg/dl (8.4-10.2); Carbon Dioxide 25 mmol/L (22-30); Chloride 101 mmol/L (98-107); Estimated Creatinine Clearance 87 ml/min; Glucose 114 mg/dl (70-99); Potassium 4.5 mmol/L (3.5-5.1); Sodium 132 mmol/L (135-145); Total Bilirubin 0.3 mg/dl (0.2-1.3); Total Protein 6.2 g/dl (6.3-8.2); eGFR > 60.00
[2024-06-15] MEDS: SENNA SYRUP 17.6 MG TUBE ×2 (10:09→20:43)
[2024-06-15] MEDS: COLACE LIQUID 100 MG TUBE ×2 (10:09→20:43)
[2024-06-15] MEDS: MIRALAX 17 GRAMS TUBE (10:10)
[2024-06-15] MEDS: TRILEPTAL 600 MG TUBE ×2 (10:10→20:43)
[2024-06-15] MEDS: VITAMIN C 500 MG TUBE (10:10)
[2024-06-15] MEDS: ProAmatine 15 MG TUBE ×2 (10:11→17:04)
[2024-06-15] MEDS: ONFI 10 MG TUBE ×2 (10:11→20:43)
--- NOTE | 2024-06-15 10:53 | PTOTSP ---
[employer] RN Note
Spoke with Ciera's mother, who stated that after discussing with her , they are not interested in dysphagia therapy at this time. They would like to hold until patient is no longer acutely ill. Information provided about outpatient
dysphagia services at this hospital. Will sign off. Please reconsult as appropriate.
--- NOTE | 2024-06-15 11:07 | W.PN.HOSP.TC ---
Today's Communication/Plan
-
Wean oxygen
Out of bed to wheelchair
Encourage incentive spirometry and Acapella
Wean oxygen
Continue antibiotics
Assessment / Plan
Assessment / Plan
48-year-old female with history of cerebral palsy with functional quadriplegia nonverbal at baseline and chronic dysphagia presented with hypoxia. Patient has a PEG tube but after video swallow evaluation she was cleared for IDDSI 4 with thick
liquids by mouth. She recently started with swallowing challenges at home with nursing and speech therapy.
Seen and examined. Father at bed side
Patient is awake. Does not consistently follow directions
Mostly CTA, poor effort
Cardiovascular system S1-S2 appreciated
Abdomen PEG tube soft and nontender
No pedal edema
# Acute hypoxic respiratory insufficiency likely secondary to aspiration pneumonia
History of recurrent aspiration
N.p.o. with PEG tube feedings
Aspiration precautions and head of bed elevation
Chest x-ray reviewed by me-airspace opacities in the left
COVID screen negative
Started on Unasyn and doxycycline-she had mild redness on the shoulder after Unasyn infusion therefore changed to enteral route through the PEG tube.
Dietary
Speech to continue to follow-up at home for pleasure feedings during the daytime if allowed.
Discussed case management to arrange a pump as the family does not have a pump at present for bolus feedings.
Dietary is also looking into plant based
Wean off oxygen
Added Robitussin
Acapella and incentive spirometry-mother will try
Also added nebulizer treatments
# Transaminitis
Ultrasound of the abdomen 04/12/2024-normal liver size. Normal echogenicity
GI evaluated here during admission in April
Needs continued follow up as OP
I will stop Nitrofurantoin as this can raise LFTs.
# Chronic dysphagia with PEG tube
Recently started tube feeds at home
Speech evaluation on going.
# Constipation-Resolved. Continue Bowel regimen.
# Cerebral palsy with functional quadriplegia
# History seizures-continue clobazam, oxcarbazepine
# Chronic hypotension on midodrine
# History of ovarian cancer with surgery and then hormonal therapy
Remains on letrozole
# Recurrent UTI on nitrofurantoin prophylaxis
# DVT prophylaxis-Lovenox
# Full code
D/W Case management re tube feed supplies set up at home. Added to discharge instructions
Also need to set up suction device at home.
She has O2 at home.
If PCP can take over future scripts , I will give the initial prescription for plant-based tube feeds-per recommendations from dietitian. Complete 1.5 3 cans a day at 45 ml/hr to be run over 16 hours or till can is cans completed. Free water flushes
50 ml/hr.
Discussed with nursing
D/W Mom at bed side
Advised to bring patient's wheelchair from home and make up seated in the wheelchair as she would do at home during the daytime.
Time more than 50 min
Part of this note was created using voice recognition system. Occasional wrong word or��sound alike� substitutions may have inadvertently occurred due to the inherent limitations of voice recognition software. If noted kindly bring it to my
attention for correction.
Anticipated Discharge: Within 24 hours
Subjective/Interval History
-
Date of Service: June 15, 2024
Objective Data
-
Labs:
Laboratory Results
06/15/24
06:57
Sodium 132 L
Potassium 4.5
Chloride 101
Carbon Dioxide 25
BUN 30 H
Creatinine 0.6
Glucose 114 H
Calcium 9.9
Total Bilirubin 0.3
AST 62 H
ALT 43 H
Alkaline Phosphatase 151 H
Vital Signs:
Vital Signs
Temp Pulse Resp BP Pulse Ox
97.2 F 65 16 113/87 93
06/15/24 07:45 06/15/24 10:11 06/15/24 07:45 06/15/24 10:11 06/15/24 07:45
I&O
06/14/24 06/15/24 06/16/24
06:59 06:59 06:59
Intake Total 780 / 780
Balance 780 / 780
[2024-06-15] MEDS: ROBITUSSIN 200 MG TUBE ×4 (11:13→22:34)
[2024-06-15] MEDS: VENTOLIN NEBULES 2.5 MG INH ×3 (11:32→20:14)
[2024-06-15] MEDS: VIBRAMYCIN 100 MG TUBE (12:20)
--- NOTE | 2024-06-15 14:26 | CM ---
Addendum entered by Teodora Hi RN 06/15/24 14:33:
Attending informed of needed TF order as below.
Original Note:
Reviewed the chart notes and forward order for suction machine to [employer] ([phone]). [facility] has TF and pump for patient. [facility] will follow. [facility] Consultant is Nicole ([phone]). TF will be Compleat
1.5 @ 45/cc hr via peg tbe x 16 hrs until all formula infused with 50cc of water an hour while TF infusing via feed and flush bag. Clinicals and labs faxed to [facility]. CM continues to be available to patient/family and is monitoring medical
plan for needs at discharge.
Plan: Discharge to home with [facility] and [facility] for TF and supplies.
[2024-06-15 15:35] VITALS: BP 109/73
[2024-06-15 16:39] VITALS: BP 109/73
[2024-06-15] MEDS: LOVENOX 40 MG SC (17:49)
--- NOTE | 2024-06-15 21:47 | PTCARENOTE ---
Received patient for the night. Father at bedside. Patient incontinent of urine and stool, perineal care given. Repositioned with pillows.
[2024-06-15] MEDS: FEMARA 2.5 MG TUBE (22:33)
[2024-06-15] MEDS: SINGULAIR 10 MG TUBE (22:33)
[2024-06-15 22:53] VITALS: BP 86/57
[2024-06-16] MEDS: AUGMENTIN 250 MG/5 ML 500 MG TUBE ×4 (00:06→23:10)
[2024-06-16] MEDS: VIBRAMYCIN 100 MG TUBE ×3 (00:06→22:41)
[2024-06-16 07:21] VITALS: BP 99/60
[2024-06-16] MEDS: VENTOLIN NEBULES 2.5 MG INH ×4 (07:25→19:48)
[2024-06-16] MEDS: MIRALAX 17 GRAMS TUBE (09:23)
[2024-06-16] MEDS: SENNA SYRUP 17.6 MG TUBE ×2 (09:24→20:33)
[2024-06-16] MEDS: ProAmatine 15 MG TUBE ×2 (09:24→16:25)
[2024-06-16] MEDS: COLACE LIQUID 100 MG TUBE ×2 (09:24→20:34)
[2024-06-16] MEDS: ROBITUSSIN 200 MG TUBE ×4 (09:25→22:41)
[2024-06-16] MEDS: VITAMIN C 500 MG TUBE (09:25)
[2024-06-16] MEDS: TRILEPTAL 600 MG TUBE ×2 (09:25→20:34)
[2024-06-16] MEDS: ONFI 10 MG TUBE ×2 (09:25→20:34)
--- NOTE | 2024-06-16 11:00 | W.PN.HOSP.TC ---
Today's Communication/Plan
-
Pulmonary consultation
Father requested that someone stay with the patient when she gets nebulizer treatments as she tends to take the mask off
Discussed with nursing regarding getting the patient into her wheelchair in which she usually spends time during the daytime at home. This will help improve the lung situation
Wean oxygen as tolerated
1 dose of Lasix
Repeat BMP this afternoon
Assessment / Plan
Assessment / Plan
48-year-old female with history of cerebral palsy with functional quadriplegia nonverbal at baseline and chronic dysphagia presented with hypoxia. Patient has a PEG tube but after video swallow evaluation she was cleared for IDDSI 4 with thick
liquids by mouth. She recently started with swallowing challenges at home with nursing and speech therapy.
Seen and examined. Father at bed side
Patient is awake. Does not consistently follow directions
Mostly few rales left, poor effort
Cardiovascular system S1-S2 appreciated
Abdomen PEG tube soft and nontender
# Acute hypoxic respiratory insufficiency likely secondary to aspiration pneumonia
History of recurrent aspiration
N.p.o. with PEG tube feedings
Aspiration precautions and head of bed elevation
Chest x-ray reviewed by me-airspace opacities in the left
COVID screen negative
Started on Unasyn and doxycycline-she had mild redness on the shoulder after Unasyn infusion therefore changed to enteral route through the PEG tube.
Dietary
Speech to continue to follow-up at home for pleasure feedings during the daytime if allowed.
Discussed case management arranging a pump as the family does not have a pump at present for bolus feedings.
Wean off oxygen if possible.
Continue Robitussin
Acapella and incentive spirometry- will try
Also added nebulizer treatments
#Hyponatremia- Will give a small dose of lasix
# Transaminitis
Ultrasound of the abdomen 04/12/2024-normal liver size. Normal echogenicity
GI evaluated here during admission in April
Needs continued follow up as OP
I will stop Nitrofurantoin as this can raise LFTs.(Father made aware)
# Chronic dysphagia with PEG tube
Recently started tube feeds at home
Speech evaluation on going.
# Constipation-Resolved. Continue Bowel regimen.
# Cerebral palsy with functional quadriplegia
# History seizures-continue clobazam, oxcarbazepine
# Chronic hypotension on midodrine
# History of ovarian cancer with surgery and then hormonal therapy
Remains on letrozole
# Recurrent UTI on nitrofurantoin prophylaxis
# DVT prophylaxis-Lovenox
# Full code
D/W Case management re tube feed supplies set up at home. Added to discharge instructions
Also need to set up suction device at home.
She has O2 at home.
If PCP can take over future scripts , I will give the initial prescription for plant-based tube feeds-per recommendations from dietitian. Complete 1.5 3 cans a day at 45 ml/hr to be run over 16 hours or till can is cans completed. Free water flushes
50 ml/hr.
Discussed with nursing
D/W Dad at bed side
Advised Nursing that she needs to sit in her wheel chair as much as Possible.
Time more than 50 min
Part of this note was created using voice recognition system. Occasional wrong word or��sound alike� substitutions may have inadvertently occurred due to the inherent limitations of voice recognition software. If noted kindly bring it to my
attention for correction.
Anticipated Discharge: Within 24 hours
Subjective/Interval History
-
Date of Service: June 16, 2024
Objective Data
-
Vital Signs:
Vital Signs
Temp Pulse Resp BP Pulse Ox
97.4 F 82 16 99/60 97
06/16/24 07:21 06/16/24 09:24 06/16/24 07:27 06/16/24 09:24 06/16/24 07:27
I&O
06/15/24 06/16/24 06/17/24
06:59 06:59 06:59
Intake Total 1999
Balance 1999
--- NOTE | 2024-06-16 11:11 | CON.PUL ---
Consultation
Consultation Request
Date/Time Consultation Requested: 06/16/24
Date/Time Consultation Performed: 06/16/24
Performing Provider: Damián
Reason for Consultation: Aspiration
Medical History
-
History of Present Illness:
Patient is a 48-year-old female with unfortunate diagnosis of cerebral palsy with functional quadriplegia, nonverbal at baseline, history of seizures, chronic dysphagia status post PEG tube, esophageal web presenting with low pulse ox for the past 3
to 4 days. She has a history of chronic aspiration pneumonia, recent admission from 04/07 - 04/21/2024 treated with IV antibiotics. She had a peg tube placed at that time, is well-known to speech therapy given her difficulty with oral intake. Family
had been continuing to feed her by mouth at home up until admission.
She was reportedly hypoxemic at home, maintained on 2 L nasal cannula with saturations in the low 90s while inpatient.
Mother at bedside, gives history.
Past Medical History
Past Medical History: Other (see list below)
Social History
Tobacco: Non-smoker
Alcohol: None
Drug: None
Family History
Family History: Reviewed & Not Pertinent
Allergies / Home Medications
Allergies
Allergy/AdvReac Type Severity Reaction Status Date / Time
brompheniramine Allergy hyper Verified 06/12/24 13:38
[From Dimetapp Cold-Allergy
(PE)]
cephalexin [From Keflex] Allergy Unknown Verified 06/12/24 13:40
chloral hydrate Allergy hyper Verified 06/12/24 13:38
diphenhydramine Allergy hyper Verified 06/12/24 13:38
[From Benadryl]
latex Allergy Swelling Verified 06/12/24 13:38
levofloxacin Allergy Unknown Verified 06/12/24 13:40
phenobarbital Allergy hyper Verified 06/12/24 13:38
phenylephrine Allergy hyper Verified 06/12/24 13:38
[From Dimetapp Cold-Allergy
(PE)]
phenytoin [From Dilantin] Allergy Rash Verified 06/12/24 13:38
Sulfa (Sulfonamide Allergy Hives Verified 06/12/24 13:38
Antibiotics)
topiramate [From Topamax] Allergy Rash Verified 06/12/24 13:38
Home Medications
�Medication �Instructions �Recorded �Confirmed �Last Taken �Type
fluticasone propionate 50 2 spray intranasal HS Allergies 03/17/24 06/12/24 03/23/24 History
mcg/actuation nasal
spray,suspension
clobazam 10 mg tablet 10 mg feeding tube BID #60 tabs 04/21/24 06/12/24 Unknown Rx
oxcarbazepine 300 mg tablet 600 mg (2 x 300 mg) feeding tube 04/21/24 06/12/24 Unknown Rx
BID #120 tabs
polyethylene glycol 3350 17 gram 17 g feeding tube DAILYPRN PRN 04/21/24 06/12/24 Unknown Rx
oral powder packet (HealthyLax) constipation #100 ea
Probiotic 1 cap feeding tube DAILY 06/12/24 06/12/24 Unknown History
ascorbic acid (vitamin C) 500 mg 500 mg feeding tube HS Supplement 06/12/24 06/12/24 Unknown History
tablet (Vitamin C)
calcium carbonate (Calcium 600) 600 mg feeding tube HS Supplement 06/12/24 06/12/24 Unknown History
cetirizine 10 mg tablet 10 mg feeding tube DAILY Allergies 06/12/24 06/12/24 Unknown History
cholecalciferol (vitamin D3) 25 25 mcg feeding tube HS Supplement 06/12/24 06/12/24 Unknown History
mcg (1,000 unit) tablet
docusate sodium 50 mg/5 mL oral 50 mg feeding tube BID Constipation 06/12/24 06/12/24 Unknown History
liquid
midodrine 5 mg tablet 15 mg feeding tube BID 06/12/24 06/12/24 Unknown History
montelukast 10 mg tablet 10 mg feeding tube DAILY 06/12/24 06/12/24 Unknown History
Lung/Breathing Issues
nitrofurantoin macrocrystal 50 mg 50 mg PO DAILY 06/12/24 06/12/24 Unknown History
capsule
sennosides 8.8 mg/5 mL oral syrup 8.8 mg feeding tube DAILY 06/12/24 06/12/24 Unknown History
Constipation
Review of Systems
-
History Source: Family
All other systems: Negative unless noted
Vitals / Labs / Diagnostic Testing
Vital Signs
Temp Pulse Resp BP Pulse Ox
97.4 F 82 16 99/60 97
06/16/24 07:21 06/16/24 09:24 06/16/24 07:27 06/16/24 09:24 06/16/24 07:27
Lab Data
06/14/24 09:23
Diagnostic Testing:
Physical Exam
-
HEENT: Normocephalic, Anicteric and Moist Mucous Membranes
Cardiovascular: S1/S2 and Regular Rhythm
Respiratory: Rhonchi (difficult to hear given body habitus) and Non-Labored Respirations
GI: Soft, Non Distended and Non Tender
Neurology: Awake, Alert, Other (nonverbal, does not follow commands or makes eye contact) and Other (Flexion contractures of arms/legs b/l)
Skin: Warm and Dry
General: Comfortable and Other (NAD)
Assessment
-
Patient is a 48-year-old female with unfortunate diagnosis of cerebral palsy with functional quadriplegia, nonverbal at baseline, history of seizures, chronic dysphagia status post PEG tube, esophageal web presenting with low pulse ox for the past 3
to 4 days. She has a history of chronic aspiration pneumonia, recent admission from 04/07 - 04/21/2024 treated with IV antibiotics. She had a peg tube placed at that time, is well-known to speech therapy given her difficulty with oral intake. Family
had been continuing to feed her by mouth at home up until admission. She was reportedly hypoxemic at home, maintained on 2 L nasal cannula with saturations in the low 90s while inpatient. Mother at bedside, gives history. We are consulted by
family request.
Recurrent aspiration pneumonia
Acute hypoxic respiratory failure on nasal cannula
Abnormal chest x-ray
Hyponatremia
Mild transaminitis
Conditions present prior to admission
Chronic dysphagia status post PEG
Recurrent aspiration pneumonia
Cerebral palsy with functional quadriplegia
Nonverbal
Seizure disorder
Esophageal web
Hypertension
Ovarian cancer status post total abdominal hysterectomy and oophorectomy
Vagus nerve stimulator implant
Appendectomy
Plan
Hypoxemia noted on arrival, placed on 2L satting 90%
Trial off/wean as tolerated
Prior history of lung disease is noted including recurrent aspiration PNAs
Extensive CP/neurologic history
CXR/CT obtained indicating bilateral patchy opacities, more compared with prior but changing
This is typical with aspiration, opacities may come and go
CT in past showing bilateral opacities as well
Speech therapy eval in past and this admission reviewed--
Prior VSE 04/14/24- Deep penetration of thin liquids with no aspiration noted. Patient presents with moderate oral dysphagia and mild pharyngeal dysphagia, similar to recent study.
Supraglottic penetration (PAS 3) noted with thin liquids via consecutive straw sips.
Eval 06/13/24- Patient exhibits clinical signs of oropharyngeal dysphagia, likely chronic related to Cerebral Palsy and acutely exacerbated by aspiration pneumonia.
Patient remains at high for aspiration and related complications given current tenuous pulmonary status, lethargy, decreased mobility at baseline, and poor oral hygiene.
Patient also is at high risk for post-prandial aspiration given esophageal web and PEG tube feedings, with patient's father reporting 2-3 episodes of regurgitation of tube feedings 2 weeks ago.
At this time, recommending NPO with PEG tube for all nutrition/medication/hydration, as patient appears with more severe oropharyngeal dysphagia than during last admission due to acuity of illness at this time.
Suspect when patient improves medically, pt may be able to safely tolerate puree textures and Mildly-thick liquids for pleasure
Family then refused further speech eval
I reviewed findings above wtih mother at bedside who understands that more oral feeding in this siltation will cause more PNA therefore continue to cause her to stay hypoxemic.
I would recommend strict NPO with use of TFs only and working with speech therapy
She seemed to agree
This is a very difficult situation
Prior ECHO results are reviewed indicating normal function
Monitor intake/outputs, daily weights
Currently on antibiotics
Airway clearance measures are limited due to patient's cognitive function
I am not sure there is any good recommendations in this situation
Palliative care would certainly be warranted
We will follow
Diagnostic Data
Chest X-Ray: 06/15/24- Airspace opacities in the left midlung suspicious for pneumonia. Right lung is grossly clear.
06/12/24- 1. Moderate-sized airspace opacities in the right mid/lower lung and in the left lower lobe suspicious for bilateral pneumonia.
2. Severe bowing deformities of both humeral diaphyses which appear unchanged.
04/12/24- No acute disease of the chest. No definitive pneumonia on this plain film examination.
CT Scan: CHEST 03/17/24- Bilateral pneumonia. Large amount of stool in the colon consistent with constipation.
Multiple bilateral hypodense lesions in the kidneys consistent with cysts. Mild caliectasis in the right kidney.
Diffuse urinary bladder wall thickening consistent with the history of UTI.
Echo: 04/11/24-Normal LV size and function with no regional wall motion abnormalities. LVEF is 55 to 60% by visual estimation. Normal diastolic function. Normal right ventricular size and function. No significant valvular disease.
No prior study available for comparison.
PFT's:
Reports and relevant images were personally reviewed.
Total time spent on this consultation __77__ includes review of history, physical exam, medications, laboratory data, personal review of imaging, extensive review of outpatient records, discussion with care team and respiratory therapy.
[2024-06-16] MEDS: LASIX 10 MG TUBE (11:58)
--- NOTE | 2024-06-16 15:07 | CM ---
Received call from Cecy at [facility] as she was trying to determine if patient would be medically stable for discharge today. Cecy stated that if patient is not cleared today, [facility] won't be able to admit over a weekend and [facility] needs to
coordinate with them to teach patient's mother and father for enteral feeds.
Plan: Case management will continue to follow and assist with discharge planning. Home with [facility] and [facility].
[2024-06-16 15:20] VITALS: BP 103/46
[2024-06-16 15:51] LABS: Blood Urea Nitrogen 30 mg/dl (7-17); Calcium 10.1 mg/dl (8.4-10.2); Carbon Dioxide 27 mmol/L (22-30); Chloride 96 mmol/L (98-107); Estimated Creatinine Clearance 74 ml/min; Glucose 99 mg/dl (70-99); Potassium 4.5 mmol/L (3.5-5.1); Sodium 129 mmol/L (135-145); eGFR > 60.00
[2024-06-16] MEDS: LOVENOX 40 MG SC (18:19)
[2024-06-16] MEDS: FEMARA 2.5 MG TUBE (22:41)
[2024-06-16] MEDS: SINGULAIR 10 MG TUBE (22:41)
[2024-06-16 23:13] VITALS: BP 127/77
[2024-06-17 07:25] VITALS: BP 90/54
[2024-06-17] MEDS: VENTOLIN NEBULES 2.5 MG INH ×4 (07:27→20:19)
[2024-06-17] MEDS: AUGMENTIN 250 MG/5 ML 500 MG TUBE ×3 (08:52→23:31)
[2024-06-17] MEDS: COLACE LIQUID 100 MG TUBE ×2 (08:53→20:07)
[2024-06-17] MEDS: ProAmatine 15 MG TUBE ×2 (08:53→17:34)
[2024-06-17] MEDS: SENNA SYRUP 17.6 MG TUBE ×2 (08:53→20:07)
[2024-06-17] MEDS: TRILEPTAL 600 MG TUBE ×2 (08:53→20:08)
[2024-06-17] MEDS: MIRALAX 17 GRAMS TUBE (08:53)
[2024-06-17] MEDS: VITAMIN C 500 MG TUBE (08:53)
[2024-06-17] MEDS: ONFI 10 MG TUBE ×2 (08:53→20:08)
[2024-06-17] MEDS: ROBITUSSIN 200 MG TUBE ×4 (08:54→21:30)
[2024-06-17 10:23] LABS: ALT (SGPT) 37 U/L (0-35); AST (SGOT) 56 U/L (14-36); Albumin 3.1 g/dl (3.5-5.0); Alkaline Phosphatase 155 U/L (38-126); Blood Urea Nitrogen 33 mg/dl (7-17); Calcium 10.3 mg/dl (8.4-10.2); Carbon Dioxide 28 mmol/L (22-30); Chloride 97 mmol/L (98-107); Estimated Creatinine Clearance 74 ml/min; Glucose 140 mg/dl (70-99); Potassium 4.4 mmol/L (3.5-5.1); Sodium 129 mmol/L (135-145); Total Bilirubin 0.3 mg/dl (0.2-1.3); Total Protein 6.4 g/dl (6.3-8.2); eGFR > 60.00
--- NOTE | 2024-06-17 10:32 | W.PN.PUL3 ---
Today's Communication / Plan
-
Continue tube feeds
Antibiotics
Sputum culture if patient produces any phlegm
Aspiration precautions with head of bed >30-45�
Case management for any supplies to help transition back home
Assessment
-
Patient is a 48-year-old female with unfortunate diagnosis of cerebral palsy with functional quadriplegia, nonverbal at baseline, history of seizures, chronic dysphagia status post PEG tube, esophageal web presenting with low pulse ox for the past 3
to 4 days. She has a history of chronic aspiration pneumonia, recent admission from 04/07 - 04/21/2024 treated with IV antibiotics. She had a peg tube placed at that time, is well-known to speech therapy given her difficulty with oral intake. Family
had been continuing to feed her by mouth at home up until admission. She was reportedly hypoxemic at home, maintained on 2 L nasal cannula with saturations in the low 90s while inpatient. Mother at bedside, gives history. We are consulted by
family request.
Impression:
Recurrent aspiration pneumonia
Acute hypoxic respiratory failure on nasal cannula
Abnormal chest x-ray
Hyponatremia
Mild transaminitis
Conditions present prior to admission
Chronic dysphagia status post PEG
Recurrent aspiration pneumonia
Cerebral palsy with functional quadriplegia
Nonverbal
Seizure disorder
Esophageal web
Hypertension
Ovarian cancer status post total abdominal hysterectomy and oophorectomy
Vagus nerve stimulator implant
Appendectomy
Plan
Hypoxemia noted on arrival, placed on 2L satting 90% � now satting 96% on 1 L/min
Trial off/wean as tolerated
Prior history of lung disease is noted including recurrent aspiration PNAs
Extensive CP/neurologic history
CXR/CT obtained indicating bilateral patchy opacities, more compared with prior but changing
This is typical with aspiration, opacities may come and go
CT in past showing bilateral opacities as well
Speech therapy eval in past and this admission reviewed--
Prior VSE 04/14/24- Deep penetration of thin liquids with no aspiration noted. Patient presents with moderate oral dysphagia and mild pharyngeal dysphagia, similar to recent study.
Supraglottic penetration (PAS 3) noted with thin liquids via consecutive straw sips.
Eval 06/13/24- Patient exhibits clinical signs of oropharyngeal dysphagia, likely chronic related to Cerebral Palsy and acutely exacerbated by aspiration pneumonia.
Patient remains at high for aspiration and related complications given current tenuous pulmonary status, lethargy, decreased mobility at baseline, and poor oral hygiene.
Patient also is at high risk for post-prandial aspiration given esophageal web and PEG tube feedings, with patient's father reporting 2-3 episodes of regurgitation of tube feedings 2 weeks ago.
At this time, recommending NPO with PEG tube for all nutrition/medication/hydration, as patient appears with more severe oropharyngeal dysphagia than during last admission due to acuity of illness at this time.
Suspect when patient improves medically, pt may be able to safely tolerate puree textures and Mildly-thick liquids for pleasure
Family then refused further speech eval
Dr. Ortiz had reviewed findings above with mother at bedside who understands that more oral feeding in this siltation will cause more PNA therefore continue to cause her to stay hypoxemic.
Recommend strict NPO with use of TFs only and working with speech therapy
She seemed to agree
This is a very difficult situation
Prior ECHO results are reviewed indicating normal function
Monitor intake/outputs, daily weights
Currently on antibiotics with Augmentin + doxycycline, antibiotics started on 06/12/2024
- Plan for 7-10 days of Abx total
Airway clearance measures are limited due to patient's cognitive function
I am not sure there is any good recommendations in this situation
Palliative care would certainly be warranted
We will follow
Total time spent today was 35 minutes for this encounter. Time includes reviewing laboratory test/imaging results, reviewing pertinent medical records, obtaining and reviewing medical history, performing an appropriate exam, ordering medications,
tests and procedures. Time also includes documentation of this encounter, coordinating patient care and communicating with other healthcare professionals. Total time does not include separately billed tests performed on this date of service.
Diagnostic Data
Chest X-Ray: 06/15/24- Airspace opacities in the left midlung suspicious for pneumonia. Right lung is grossly clear.
06/12/24- 1. Moderate-sized airspace opacities in the right mid/lower lung and in the left lower lobe suspicious for bilateral pneumonia.
2. Severe bowing deformities of both humeral diaphyses which appear unchanged.
04/12/24- No acute disease of the chest. No definitive pneumonia on this plain film examination.
CT Scan: CHEST 03/17/24- Bilateral pneumonia. Large amount of stool in the colon consistent with constipation.
Multiple bilateral hypodense lesions in the kidneys consistent with cysts. Mild caliectasis in the right kidney.
Diffuse urinary bladder wall thickening consistent with the history of UTI.
Echo: 04/11/24-Normal LV size and function with no regional wall motion abnormalities. LVEF is 55 to 60% by visual estimation. Normal diastolic function. Normal right ventricular size and function. No significant valvular disease.
No prior study available for comparison.
PFT's:
Reports and relevant images were personally reviewed.
Subjective Data
-
Date of Service:
Date of Service: June 17, 2024
Chief Complaint: Pulmonary Follow Up
Subjective:
Patient seen and evaluated today at bedside. Father at bedside. Patient currently on 1 L/min nasal cannula breathing comfortably, SpO2 95%. Patient is in NAD. No acute events reported from overnight. Currently getting tube feeds through G-tube.
Review of Systems
General: Other (Unable to obtain ROS due to patient's clinical status/nonverbal)
Objective Data
Data Reviewed
Vital Signs / I&O / Oxygen:
Vital Signs
Temp Pulse Resp BP Pulse Ox
98.3 F 85 17 90/54 97
06/17/24 07:25 06/17/24 07:29 06/17/24 07:29 06/17/24 07:25 06/17/24 07:29
Intake and Output
06/16/24 06/17/24 06/18/24
06:59 06:59 06:59
Intake Total 1999 / 1599
Balance 1999
SaO2 97
Nasal Cannula flow liters per 2
minute
Physical Exam
General: Respiratory Distress (Negative), Comfortable, Chills (Negative) and Other (Flexion contractures of arms/legs bilaterally)
HEENT: Normocephalic and Anicteric
Cardiovascular: S1-S2 and Peripheral Edema (Negative)
Respiratory: Wheeze (Negative), Crackles (Coarse breath sounds heard bilaterally), Rhonchi (Negative) and Non-Labored Respirations
GI: Soft, Non Distended, Non Tender, Normal Bowel Sounds and Feeding Tube
Neurology: Awake and Alert
Skin: Warm, Dry and Jaundice (Negative)
Labs/Micro/Reports
Lab Data
06/14/24 09:23
06/17/24 10:02
[2024-06-17] MEDS: VIBRAMYCIN 100 MG TUBE ×2 (10:55→21:30)
--- NOTE | 2024-06-17 11:58 | W.PN.HOSP.TC ---
Today's Communication/Plan
-
Continue antibiotics
Per case management [facility] and by can only do Discharge on Wednesday.
Assessment / Plan
Assessment / Plan
48-year-old female with history of cerebral palsy with functional quadriplegia nonverbal at baseline and chronic dysphagia presented with hypoxia. Patient has a PEG tube but after video swallow evaluation she was cleared for IDDSI 4 with thick
liquids by mouth. She recently started with swallowing challenges at home with nursing and speech therapy.
Seen and examined. Mom at bed side
Patient is awake. Does not consistently follow directions
CTA, poor effort
Cardiovascular system S1-S2 appreciated
Abdomen PEG tube soft and nontender
# Acute hypoxic respiratory insufficiency likely secondary to aspiration pneumonia
History of recurrent aspiration
N.p.o. with PEG tube feedings
Aspiration precautions and head of bed elevation
Chest x-ray reviewed by me-airspace opacities in the left
COVID screen negative
Started on Unasyn and doxycycline-she had mild redness on the shoulder after Unasyn infusion therefore changed to enteral route through the PEG tube.
Dietary
Speech to continue to follow-up at home for pleasure feedings during the daytime if allowed.
Discussed case management arranging a pump as the family does not have a pump at present for bolus feedings.
Wean off oxygen if possible. 1 L now
Continue Robitussin
Acapella and incentive spirometry- will try
Also added nebulizer treatments
She keeps her neck flexed towards the right while in bed this is also affecting oxygenation
Encouraged to get out to wheelchair-though ordered this did not happen yesterday.
#Hyponatremia- Check serum and urine osmolality studies, TSH and cortisol to determine the type of hyponatremia
# Transaminitis
Ultrasound of the abdomen 04/12/2024-normal liver size. Normal echogenicity
GI evaluated here during admission in April
Needs continued follow up as OP
I will stop Nitrofurantoin as this can raise LFTs.(Father made aware)
# Chronic dysphagia with PEG tube
Recently started tube feeds at home
Speech evaluation on going.
# Constipation-Resolved. Continue Bowel regimen.
# Cerebral palsy with functional quadriplegia
# History seizures-continue clobazam, oxcarbazepine
# Chronic hypotension on midodrine
# History of ovarian cancer with surgery and then hormonal therapy
Remains on letrozole
# Recurrent UTI on nitrofurantoin prophylaxis-will need to stop
# DVT prophylaxis-Lovenox
# Full code
D/W Case management re tube feed supplies set up at home. Added to discharge instructions
Also need to set up suction device at home.
She has O2 at home.
Discussed with nursing
D/W mom at bed side
Discussed with dad on the phone
Discussed with pulmonary
Advised Nursing that she needs to sit in her wheel chair as much as Possible. Nursing did not get her to her wheelchair today which is appreciated.
Time more than 50 min
Part of this note was created using voice recognition system. Occasional wrong word or��sound alike� substitutions may have inadvertently occurred due to the inherent limitations of voice recognition software. If noted kindly bring it to my
attention for correction.
Anticipated Discharge: 24 - 48 hours
Subjective/Interval History
-
Date of Service: June 17, 2024
Objective Data
-
Labs:
Laboratory Results
06/17/24 06/17/24
07:48 10:02
Sodium Cancelled 129 L
Potassium Cancelled 4.4
Chloride Cancelled 97 L
Carbon Dioxide Cancelled 28
BUN Cancelled 33 H
Creatinine Cancelled 0.7
Glucose Cancelled 140 H
Calcium Cancelled 10.3 H
Total Bilirubin Cancelled 0.3
AST Cancelled 56 H
ALT Cancelled 37 H
Alkaline Phosphatase Cancelled 155 H
Vital Signs:
Vital Signs
Temp Pulse Resp BP Pulse Ox
98.3 F 90 16 90/54 95
06/17/24 07:25 06/17/24 11:52 06/17/24 11:52 06/17/24 07:25 06/17/24 11:52
I&O
06/16/24 06/17/24 06/18/24
06:59 06:59 06:59
Intake Total 1999 1600 / 1600
Balance 1999 1600 / 1600
[2024-06-17 14:19] LABS: Osmolality Serum 287 mOsm/kg (275-300)
[2024-06-17 14:20] LABS: Cortisol, Random 10.7 ug/dl; TSH 1.81 uIU/ml (0.47-4.68)
[2024-06-17 15:30] VITALS: BP 112/74
[2024-06-17] MEDS: LOVENOX 40 MG SC (17:34)
[2024-06-17 18:11] LABS: Osmolality Urine 478 mOsm/kg (300-900)
[2024-06-17 18:29] LABS: Urine Sodium 38 mmol/L (30-90)
[2024-06-17] MEDS: FEMARA 2.5 MG TUBE (21:34)
[2024-06-17] MEDS: SINGULAIR 10 MG TUBE (21:34)
[2024-06-17 23:00] VITALS: BP 107/72
[2024-06-17 23:13] VITALS: BP 107/72
[2024-06-18 07:35] VITALS: BP 127/78
[2024-06-18] MEDS: VENTOLIN NEBULES 2.5 MG INH ×4 (07:48→20:21)
[2024-06-18 08:59] LABS: Blood Urea Nitrogen 36 mg/dl (7-17); Calcium 10.6 mg/dl (8.4-10.2); Carbon Dioxide 34 mmol/L (22-30); Chloride 96 mmol/L (98-107); Estimated Creatinine Clearance 74 ml/min; Glucose 102 mg/dl (70-99); Potassium 4.7 mmol/L (3.5-5.1); Sodium 132 mmol/L (135-145); eGFR > 60.00
[2024-06-18] MEDS: AUGMENTIN 250 MG/5 ML 500 MG TUBE ×3 (09:03→23:41)
[2024-06-18] MEDS: MIRALAX 17 GRAMS TUBE (09:03)
[2024-06-18] MEDS: SENNA SYRUP 17.6 MG TUBE ×2 (09:03→20:43)
[2024-06-18] MEDS: TRILEPTAL 600 MG TUBE ×2 (09:03→20:44)
[2024-06-18] MEDS: VITAMIN C 500 MG TUBE (09:04)
[2024-06-18] MEDS: ONFI 10 MG TUBE ×2 (09:04→20:43)
[2024-06-18] MEDS: ROBITUSSIN 200 MG TUBE ×4 (09:04→20:43)
[2024-06-18] MEDS: ProAmatine 15 MG TUBE ×2 (09:04→16:43)
[2024-06-18] MEDS: COLACE LIQUID 100 MG TUBE ×2 (09:04→20:43)
[2024-06-18] MEDS: VIBRAMYCIN 100 MG TUBE (10:52)
[2024-06-18] MEDS: VENTOLIN NEBULES INH (11:11)
--- NOTE | 2024-06-18 11:22 | W.PN.HOSP.TC ---
Today's Communication/Plan
-
Discharge once equipments, tube feeds are arranged
Medically stable for discharge
Assessment / Plan
Assessment / Plan
48-year-old female with history of cerebral palsy with functional quadriplegia nonverbal at baseline and chronic dysphagia presented with hypoxia. Patient has a PEG tube but after video swallow evaluation she was cleared for IDDSI 4 with thick
liquids by mouth. She recently started with swallowing challenges at home with nursing and speech therapy.
Seen and examined.
Patient is awake. Does not consistently follow directions
CTA, poor effort
Cardiovascular system S1-S2 appreciated
Abdomen PEG tube soft and nontender
Seated in a wheel chair.
# Acute hypoxic respiratory insufficiency likely secondary to aspiration pneumonia
History of recurrent aspiration
N.p.o. with PEG tube feedings
Aspiration precautions and head of bed elevation
Chest x-ray reviewed by me-airspace opacities in the left
COVID screen negative
Started on Unasyn and doxycycline-she had mild redness on the shoulder after Unasyn infusion therefore changed to enteral route through the PEG tube.
Speech to continue to follow-up at home for pleasure feedings during the daytime if allowed.
Wean off oxygen if possible. 1 L now
Continue Robitussin
Acapella and incentive spirometry- will try
Also added nebulizer treatments
She keeps her neck flexed towards the right while in bed this is also affecting oxygenation-father stated that she is going to get a brace to address this.
Encouraged to get out to wheelchair- seated in a wheel chair.
#Hyponatremia-euvolemic. Better
# Transaminitis
Ultrasound of the abdomen 04/12/2024-normal liver size. Normal echogenicity
GI evaluated here during admission in April
Needs continued follow up as OP
I will stop Nitrofurantoin as this can raise LFTs.(Father made aware)
# Chronic dysphagia with PEG tube
Recently started tube feeds at home
Speech evaluation on going.
# Constipation-Resolved. Continue Bowel regimen.
# Cerebral palsy with functional quadriplegia
# History seizures-continue clobazam, oxcarbazepine
# Chronic hypotension on midodrine
# History of ovarian cancer with surgery and then hormonal therapy
Remains on letrozole
# Recurrent UTI on nitrofurantoin prophylaxis-will need to stop
# DVT prophylaxis-Lovenox
# Full code
D/W Case management re tube feed supplies set up at home. Added to discharge instructions
Also need to set up suction device at home.
Also will arrange nebulizer
She has O2 at home.
Discussed with nursing
D/W father at bed side
D/W RN AT BED SIDE
Time more than 50 min
Part of this note was created using voice recognition system. Occasional wrong word or��sound alike� substitutions may have inadvertently occurred due to the inherent limitations of voice recognition software. If noted kindly bring it to my
attention for correction.
Anticipated Discharge: Within 24 hours
Subjective/Interval History
-
Date of Service: June 18, 2024
Objective Data
-
Labs:
Laboratory Results
06/18/24
08:06
Sodium 132 L
Potassium 4.7
Chloride 96 L
Carbon Dioxide 34 H
BUN 36 H
Creatinine 0.7
Glucose 102 H
Calcium 10.6 H
Vital Signs:
Vital Signs
Temp Pulse Resp BP Pulse Ox
98.6 F 82 14 127/78 97
06/17/24 23:00 06/18/24 11:16 06/18/24 11:16 06/18/24 07:35 06/18/24 07:52
I&O
06/17/24 06/18/24 06/19/24
06:59 06:59 06:59
Intake Total 1600 / 1600
Output Total 300 / 300
Balance 1600 / 1600 -300 / -300
--- NOTE | 2024-06-18 11:24 | W.PN.PUL3 ---
Today's Communication / Plan
-
Continue tube feeds
Antibiotics
Sputum culture if patient produces any phlegm
Aspiration precautions with head of bed >30-45�
Case management for any supplies to help transition back home
Mother is interested in obtaining a nebulizer for home use - I placed case management consult in and she should be discharged home with prn DuoNeb q4-6hr prn for SOB/wheeze/cough expectoration
Hopefully she will be discharged tomorrow
Assessment
-
Patient is a 48-year-old female with unfortunate diagnosis of cerebral palsy with functional quadriplegia, nonverbal at baseline, history of seizures, chronic dysphagia status post PEG tube, esophageal web presenting with low pulse ox for the past 3
to 4 days. She has a history of chronic aspiration pneumonia, recent admission from 04/07 - 04/21/2024 treated with IV antibiotics. She had a peg tube placed at that time, is well-known to speech therapy given her difficulty with oral intake. Family
had been continuing to feed her by mouth at home up until admission. She was reportedly hypoxemic at home, maintained on 2 L nasal cannula with saturations in the low 90s while inpatient. Mother at bedside, gives history. We are consulted by
family request.
Impression:
Recurrent aspiration pneumonia
Acute hypoxic respiratory failure on nasal cannula
Abnormal chest x-ray
Hyponatremia
Mild transaminitis
Conditions present prior to admission
Chronic dysphagia status post PEG
Recurrent aspiration pneumonia
Cerebral palsy with functional quadriplegia
Nonverbal
Seizure disorder
Esophageal web
Hypertension
Ovarian cancer status post total abdominal hysterectomy and oophorectomy
Vagus nerve stimulator implant
Appendectomy
Plan
Hypoxemia noted on arrival, placed on 2L satting 90% � now satting 95-96% on 1 L/min
Wean as tolerated while keeping SpO2 >90-94%
Prior history of lung disease is noted including recurrent aspiration PNAs
Extensive CP/neurologic history
CXR/CT obtained indicating bilateral patchy opacities, more compared with prior but changing
This is typical with aspiration, opacities may come and go
CT in past showing bilateral opacities as well
Speech therapy eval in past and this admission reviewed--
Prior VSE 04/14/24- Deep penetration of thin liquids with no aspiration noted. Patient presents with moderate oral dysphagia and mild pharyngeal dysphagia, similar to recent study.
Supraglottic penetration (PAS 3) noted with thin liquids via consecutive straw sips.
Eval 06/13/24- Patient exhibits clinical signs of oropharyngeal dysphagia, likely chronic related to Cerebral Palsy and acutely exacerbated by aspiration pneumonia.
Patient remains at high for aspiration and related complications given current tenuous pulmonary status, lethargy, decreased mobility at baseline, and poor oral hygiene.
Patient also is at high risk for post-prandial aspiration given esophageal web and PEG tube feedings, with patient's father reporting 2-3 episodes of regurgitation of tube feedings 2 weeks ago.
At this time, recommending NPO with PEG tube for all nutrition/medication/hydration, as patient appears with more severe oropharyngeal dysphagia than during last admission due to acuity of illness at this time.
Suspect when patient improves medically, pt may be able to safely tolerate puree textures and Mildly-thick liquids for pleasure
Family then refused further speech eval
Dr. Brandie Ortiz had reviewed findings above with mother at bedside who understands that more oral feeding in this siltation will cause more PNA therefore continue to cause her to stay hypoxemic.
Recommend strict NPO with use of TFs only and working with speech therapy
She seemed to agree
This is a very difficult situation
Prior ECHO results are reviewed indicating normal function
Monitor intake/outputs, daily weights
Currently on antibiotics with Augmentin + doxycycline, antibiotics started on 06/12/2024 - last dose of doxy today
- Plan for 7-10 days of Abx total
Airway clearance measures are limited due to patient's cognitive function
I am not sure there is any good recommendations in this situation
Palliative care would certainly be warranted
We will follow
Total time spent today was 35 minutes for this encounter. Time includes reviewing laboratory test/imaging results, reviewing pertinent medical records, obtaining and reviewing medical history, performing an appropriate exam, ordering medications,
tests and procedures. Time also includes documentation of this encounter, coordinating patient care and communicating with other healthcare professionals. Total time does not include separately billed tests performed on this date of service.
Diagnostic Data
Chest X-Ray: 06/15/24- Airspace opacities in the left midlung suspicious for pneumonia. Right lung is grossly clear.
06/12/24- 1. Moderate-sized airspace opacities in the right mid/lower lung and in the left lower lobe suspicious for bilateral pneumonia.
2. Severe bowing deformities of both humeral diaphyses which appear unchanged.
04/12/24- No acute disease of the chest. No definitive pneumonia on this plain film examination.
CT Scan: CHEST 03/17/24- Bilateral pneumonia. Large amount of stool in the colon consistent with constipation.
Multiple bilateral hypodense lesions in the kidneys consistent with cysts. Mild caliectasis in the right kidney.
Diffuse urinary bladder wall thickening consistent with the history of UTI.
Echo: 04/11/24-Normal LV size and function with no regional wall motion abnormalities. LVEF is 55 to 60% by visual estimation. Normal diastolic function. Normal right ventricular size and function. No significant valvular disease.
No prior study available for comparison.
PFT's: N/A
Reports and relevant images were personally reviewed.
Subjective Data
-
Date of Service:
Date of Service: June 18, 2024
Chief Complaint: Pulmonary Follow Up
Subjective:
Patient seen with mother at bedside. Patient currently on 1 L/min nasal cannula and sleeping in no acute distress. She did sit down in her wheelchair today. No acute events reported from overnight.
Review of Systems
General: Other (Unable to obtain as patient is nonverbal at baseline)
Objective Data
Data Reviewed
Vital Signs / I&O / Oxygen:
Vital Signs
Temp Pulse Resp BP Pulse Ox
98.6 F 82 14 127/78 97
06/17/24 23:00 06/18/24 11:16 06/18/24 11:16 06/18/24 07:35 06/18/24 07:52
Intake and Output
06/17/24 06/18/24 06/19/24
06:59 06:59 06:59
Intake Total 1600 / 1600
Output Total 300 / 300
Balance 1600 / 1600 -300 / -300
SaO2 97
Nasal Cannula flow liters per 1
minute
Physical Exam
General: Respiratory Distress (Negative), Comfortable, Chills (Negative) and Other (Flexion contractures of arms/legs bilaterally)
HEENT: Normocephalic and Anicteric
Cardiovascular: S1-S2 and Peripheral Edema (Negative)
Respiratory: Wheeze (Negative), Crackles (Coarse breath sounds heard bilaterally), Rhonchi (Negative) and Non-Labored Respirations
GI: Soft, Non Distended, Non Tender, Normal Bowel Sounds and Feeding Tube
Neurology: Other (Sleeping in no acute distress, arousable to tactile stimuli)
Skin: Warm, Dry and Jaundice (Negative)
Labs/Micro/Reports
Lab Data
06/14/24 09:23
06/18/24 08:06
[2024-06-18 15:20] VITALS: BP 129/80
--- NOTE | 2024-06-18 16:04 | CM ---
Addendum entered by Teodora Hi RN 06/18/24 16:32:
Order for nebulizer faxed to [facility].
Original Note:
Reviewed the chart notes and spoke with the patient's mother at the bedside. IMM reviewed and signed. CM continues to be available to patient/family and is monitoring medical plan for needs at discharge.
Plan: Discharge to home with [facility] and [facility] for tube feeding and pump.
[2024-06-18] MEDS: LOVENOX 40 MG SC (17:14)
[2024-06-18] MEDS: SINGULAIR 10 MG TUBE (20:43)
[2024-06-18] MEDS: FEMARA 2.5 MG TUBE (20:43)
[2024-06-18 23:16] VITALS: BP 89/63
[2024-06-18 23:52] VITALS: BP 96/64
--- NOTE | 2024-06-19 06:36 | W.PN.PUL3 ---
Today's Communication / Plan
-
Continue with aspiration precautions
Oxygen therapy as needed
Complete 7-day course of Augmentin, last day 06/19
We will sign off. Please call with questions
Assessment
-
Patient is a 48-year-old female with unfortunate diagnosis of cerebral palsy with functional quadriplegia, nonverbal at baseline, history of seizures, chronic dysphagia status post PEG tube, esophageal web presenting with low pulse ox for the past 3
to 4 days. She has a history of chronic aspiration pneumonia, recent admission from 04/07 - 04/21/2024 treated with IV antibiotics. She had a peg tube placed at that time, is well-known to speech therapy given her difficulty with oral intake. Family
had been continuing to feed her by mouth at home up until admission. She was reportedly hypoxemic at home, maintained on 2 L nasal cannula with saturations in the low 90s while inpatient. Mother at bedside, gives history. We are consulted by
family request.
Impression:
Recurrent aspiration pneumonia
Acute hypoxic respiratory failure on nasal cannula
Abnormal chest x-ray
Hyponatremia
Mild transaminitis
Conditions present prior to admission
Chronic dysphagia status post PEG
Recurrent aspiration pneumonia
Cerebral palsy with functional quadriplegia
Nonverbal
Seizure disorder
Esophageal web
Hypertension
Ovarian cancer status post total abdominal hysterectomy and oophorectomy
Vagus nerve stimulator implant
Appendectomy
Plan
At this time, patient appears to be comfortable. Presently she is 98% on 1 L
Chest exam today is clear, no rhonchi or wheeze
Chest x-ray 06/15/2024 shows improved bilateral infiltrates
Prior history of lung disease is noted including recurrent aspiration PNAs
Extensive CP/neurologic history
CXR/CT obtained indicating bilateral patchy opacities, more compared with prior but changing
This is typical with aspiration, opacities may come and go
CT in past showing bilateral opacities as well
Speech therapy eval in past and this admission reviewed--
Prior VSE 04/14/24- Deep penetration of thin liquids with no aspiration noted. Patient presents with moderate oral dysphagia and mild pharyngeal dysphagia, similar to recent study.
Supraglottic penetration (PAS 3) noted with thin liquids via consecutive straw sips.
Eval 06/13/24- Patient exhibits clinical signs of oropharyngeal dysphagia, likely chronic related to Cerebral Palsy and acutely exacerbated by aspiration pneumonia.
Patient remains at high for aspiration and related complications given current tenuous pulmonary status, lethargy, decreased mobility at baseline, and poor oral hygiene.
Patient also is at high risk for post-prandial aspiration given esophageal web and PEG tube feedings, with patient's father reporting 2-3 episodes of regurgitation of tube feedings 2 weeks ago.
At this time, recommending NPO with PEG tube for all nutrition/medication/hydration, as patient appears with more severe oropharyngeal dysphagia than during last admission due to acuity of illness at this time.
Suspect when patient improves medically, pt may be able to safely tolerate puree textures and Mildly-thick liquids for pleasure
Family then refused further speech eval
Per d/w Dr. Brandie Ortiz, had reviewed findings above with mother at bedside who understands that more oral feeding in this siltation will cause more PNA therefore continue to cause her to stay hypoxemic.
Recommend strict NPO with use of TFs only and working with speech therapy
She seemed to agree
Prior ECHO results are reviewed indicating normal function
Monitor intake/outputs, daily weights
Currently on antibiotics with Augmentin + doxycycline, antibiotics started on 06/12/2024 -now remains on Augmentin
- Plan for 7 days antibiotics
Airway clearance measures are limited due to patient's cognitive function
I am not sure there is any good recommendations in this situation
Palliative care would certainly be warranted
We will sign off. Please call with questions
Diagnostic Data
Chest X-Ray: 06/15/24- Airspace opacities in the left midlung suspicious for pneumonia. Right lung is grossly clear.
06/12/24- 1. Moderate-sized airspace opacities in the right mid/lower lung and in the left lower lobe suspicious for bilateral pneumonia.
2. Severe bowing deformities of both humeral diaphyses which appear unchanged.
04/12/24- No acute disease of the chest. No definitive pneumonia on this plain film examination.
CT Scan: CHEST 03/17/24- Bilateral pneumonia. Large amount of stool in the colon consistent with constipation.
Multiple bilateral hypodense lesions in the kidneys consistent with cysts. Mild caliectasis in the right kidney.
Diffuse urinary bladder wall thickening consistent with the history of UTI.
Echo: 04/11/24-Normal LV size and function with no regional wall motion abnormalities. LVEF is 55 to 60% by visual estimation. Normal diastolic function. Normal right ventricular size and function. No significant valvular disease.
No prior study available for comparison.
PFT's: N/A
Reports and relevant images were personally reviewed.
Subjective Data
-
Date of Service:
Date of Service: June 19, 2024
Chief Complaint: Pulmonary Follow Up
Subjective:
Patient examined earlier this morning. Does not appear to be any distress, no use of accessory muscles. Family at bedside sleeping, did not awaken during exam
Objective Data
Data Reviewed
Vital Signs / I&O / Oxygen:
Vital Signs
Temp Pulse Resp BP Pulse Ox
98.9 F 85 16 96/64 98
06/18/24 23:16 06/18/24 23:16 06/18/24 23:16 06/18/24 23:52 06/18/24 23:16
Intake and Output
06/17/24 06/18/24 06/19/24
06:59 06:59 06:59
Intake Total 1600 / 1600 700 / 700 1540 / 1540
Output Total 300 / 300
Balance 1600 / 1600 400 / 400 1540 / 1540
SaO2 98
Nasal Cannula flow liters per 1
minute
Physical Exam
General: Comfortable and Other (Flexion contractures of arms/legs bilaterally)
HEENT: Normocephalic and Anicteric
Cardiovascular: S1-S2, Regular Rhythm, Murmur (n), Rub (n) and Peripheral Edema (Negative)
Respiratory: Wheeze (Negative), Crackles (n), Rhonchi (Negative), Non-Labored Respirations and Stridor (n)
GI: Soft, Non Distended, Non Tender, Normal Bowel Sounds and Feeding Tube
Neurology: No Motor Deficits (turns head and moves upper body) and Other (Sleeping in no acute distress, arousable to tactile stimuli)
Skin: Warm, Dry and Rash (n)
Labs/Micro/Reports
Lab Data
06/14/24 09:23
06/18/24 08:06
[2024-06-19] MEDS: VENTOLIN NEBULES 2.5 MG INH ×2 (07:17→11:28)
[2024-06-19 07:25] VITALS: BP 111/68
[2024-06-19] MEDS: SENNA SYRUP TUBE (07:38)
[2024-06-19] MEDS: COLACE LIQUID TUBE (07:38)
[2024-06-19] MEDS: TRILEPTAL 600 MG TUBE (07:48)
[2024-06-19] MEDS: ProAmatine 15 MG TUBE (07:48)
[2024-06-19] MEDS: MIRALAX TUBE (07:48)
[2024-06-19] MEDS: ONFI 10 MG TUBE (07:48)
[2024-06-19] MEDS: VITAMIN C 500 MG TUBE (07:49)
[2024-06-19] MEDS: ROBITUSSIN 200 MG TUBE (07:49)
[2024-06-19] MEDS: AUGMENTIN 250 MG/5 ML 500 MG TUBE (07:49)
--- NOTE | 2024-06-19 11:24 | W.DS.TRANS ---
DC Summary - [employer]
-
Discharge Instructions:
Discharge Diagnosis/Procedures Acute hypoxic respiratory insufficiency
Aspiration pneumonia
Elevated LFTs
Mild Hyponatremia
Dysphagia with PEG tube
Constipation
Cerebral palsy
History of seizures
Chronic hypotension on midodrine
History of ovarian cancer
History of UTI
Diet Tube feeding
Additional Diets Complete 1.5, three cans a day at 45 mL/h
through PEG tube to be around over 16 hours or
until formula is completed. Flushes 50 mill per
hour through the PEG tube. Speech therapy to
work with patient to evaluate safety of p.o.
intake for pleasure feedings during the daytime.
Activity As tolerated,With assistance
Additional Activity Out of bed to chair. Head of bed elevation to
30 to 45 degrees at all times while in bed.
Aspiration precautions.
Driving Restrictions No driving
Blood Work CMP 2 weeks
Others Tests Chest Xray in 4-6 weeks.
Other Services VN
Instructions:
Stand-Alone Forms:
Changes to Home Medications: Yes
Discharge Medications:
DC Medications w/original date entered in [employer]
fluticasone propionate 50 mcg/actuation nasal spray,suspension 2 spray intranasal HS Allergies 03/17/24
clobazam 10 mg tablet 10 mg feeding tube BID #60 tabs 04/21/24
oxcarbazepine 300 mg tablet 600 mg (2 x 300 mg) feeding tube BID #120 tabs 04/21/24
polyethylene glycol 3350 17 gram oral powder packet (HealthyLax) 17 g feeding tube DAILYPRN PRN constipation #100 ea 04/21/24
Probiotic 1 cap feeding tube DAILY 06/12/24
ascorbic acid (vitamin C) 500 mg tablet (Vitamin C) 500 mg feeding tube HS Supplement 06/12/24
calcium carbonate (Calcium 600) 600 mg feeding tube HS Supplement 06/12/24
cetirizine 10 mg tablet 10 mg feeding tube DAILY Allergies 06/12/24
cholecalciferol (vitamin D3) 25 mcg (1,000 unit) tablet 25 mcg feeding tube HS Supplement 06/12/24
docusate sodium 50 mg/5 mL oral liquid 50 mg feeding tube BID Constipation 06/12/24
midodrine 5 mg tablet 15 mg feeding tube BID 06/12/24
montelukast 10 mg tablet 10 mg feeding tube DAILY Lung/Breathing Issues 06/12/24
sennosides 8.8 mg/5 mL oral syrup 8.8 mg feeding tube DAILY Constipation 06/12/24
amoxicillin 250 mg-potassium clavulanate 62.5 mg/5 mL oral suspension 40 ml feeding tube Q8 #840 mL 06/19/24
Home Medication Changes
Additional 7 days of antibiotics
Pending Results: No
--- NOTE | 2024-06-19 11:58 | CM ---
Patient seen at bedside with mother present. IMM completed yesterday per prior documentation. patient mother to transport home with father and wheelchair/home O2 in place. [employer] contacted family and are delivering nebulizer today. [facility]
confirmed delivery of tube feedings and pump, Second delivery later tomorrow. Patient mother aware and plan is for father to transport patient home today and [facility] aware of discharge and will meet patient at 2pm. CM confirmed above with nursing and
physician. Please fax discharge paperwork to [phone]. CM will continue to follow for discharge planning needs.
Plan; home with parents, [facility] and [employer] to provide delivery; [facility] to follow
[2024-06-19 12:20] VITALS: BP 88/72
== END 2024-06-19 13:11 | disposition home health service (06) | DRG 177 ==
LOC: 2 NORTH 19:25
PROVIDERS: Hospitalist; Physician Assistant; ADMITTING PHYSICIAN Hospitalist; ATTENDING PHYSICIAN Internal Medicine; CONSULT PHYSICIAN Internal Medicine; EMERGENCY PHYSICIAN Emergency Medicine; FAMILY PHYSICIAN Family Medicine
DX: J69.0 Pneumonitis due to inhalation of food and vomit (principal); J96.01 Acute respiratory failure with hypoxia; Q39.4 Esophageal web; R53.2 Functional quadriplegia; G40.89 Other seizures; E87.1 Hypo-osmolality and hyponatremia; G80.8 Other cerebral palsy; I10 Essential (primary) hypertension; I95.89 Other hypotension; R13.12 Dysphagia, oropharyngeal phase; R74.01 Elevation of levels of liver transaminase levels; K59.00 Constipation, unspecified; Z79.811 Long term (current) use of aromatase inhibitors; Z79.899 Other long term (current) drug therapy; Z96.82 Presence of neurostimulator; Z93.1 Gastrostomy status; Z85.43 Personal history of malignant neoplasm of ovary; Z90.710 Acquired absence of both cervix and uterus; Z90.89 Acquired absence of other organs; Z87.820 Personal history of traumatic brain injury; Z87.440 Personal history of urinary (tract) infections
CPT/HCPCS: 71045; 80048; 80053; 80076; 82533; 83880; 83930; 83935; 84145; 84300; 84443; 84484; 85025; 85027; 85379; 87811; 92526; 92610; 93005; 94640; 99285

== ENCOUNTER → 2024-07-19 11:40 | Outpatient (REF) | payer MEDICARE, OTHER, SELFPAY ==
[2024-07-19 16:19] LABS: ALT (SGPT) 33 U/L (0-35); AST (SGOT) 50 U/L (14-36); Albumin 3.8 g/dl (3.5-5.0); Alkaline Phosphatase 159 U/L (38-126); Blood Urea Nitrogen 53 mg/dl (7-17); Carbon Dioxide 28 mmol/L (22-30); Chloride 96 mmol/L (98-107); Glucose 94 mg/dl (70-99); Phosphorus 3.5 mg/dl (2.5-4.5); Potassium 4.7 mmol/L (3.5-5.1); Sodium 137 mmol/L (135-145); Total Bilirubin 0.4 mg/dl (0.2-1.3); Total Protein 7.5 g/dl (6.3-8.2); eGFR 51.36
[2024-07-19 16:30] LABS: Intact PTH 8.2 pg/ml (13.6-85.8)
[2024-07-19 22:39] LABS: Vitamin D, 25-OH*** 31.7 ng/mL (30-80)
== END ==
LOC: HWLAB 11:40
PROVIDERS: ATTENDING PHYSICIAN Internal Medicine; FAMILY PHYSICIAN Family Medicine
DX: R74.8 Abnormal levels of other serum enzymes (principal); E83.52 Hypercalcemia; E87.1 Hypo-osmolality and hyponatremia; J69.0 Pneumonitis due to inhalation of food and vomit
CPT/HCPCS: 36415; 71045; 80053; 82306; 83970; 84100

== ENCOUNTER → 2024-08-17 12:09 | Outpatient (REF) | payer MEDICARE, OTHER, SELFPAY ==
[2024-08-17 13:02] LABS: Albumin 3.6 g/dl (3.5-5.0); Blood Urea Nitrogen 37 mg/dl (7-17); Calcium 10.2 mg/dl (8.4-10.2); Carbon Dioxide 27 mmol/L (22-30); Chloride 100 mmol/L (98-107); Glucose 92 mg/dl (70-99); Phosphorus 4.1 mg/dl (2.5-4.5); Potassium 4.6 mmol/L (3.5-5.1); Sodium 138 mmol/L (135-145); eGFR > 60.00
== END ==
LOC: REG 12:09
PROVIDERS: ATTENDING PHYSICIAN Internal Medicine; FAMILY PHYSICIAN Family Medicine
DX: E83.52 Hypercalcemia (principal); G80.9 Cerebral palsy, unspecified; R74.8 Abnormal levels of other serum enzymes; I10 Essential (primary) hypertension
CPT/HCPCS: 36415; 80069; 83519; 84155; 84165

== ENCOUNTER 2024-10-08 10:43 | Inpatient (IN) | payer MEDICARE, OTHER, SELFPAY ==
[2024-10-06 21:11] VITALS: BP 104/68
--- NOTE | 2024-10-06 23:45 | ED.GENMED ---
History of Present Illness
General
Chief Complaint: Catheter/Tube Problem
Source: patient and family
Exam Limitations: non verbal-adult
Time Seen by Provider: 10/06/24 22:35
Nursing documentation reviewed up to this point in time: agreed with
History of Present Illness
History of Present Illness:
Patient with history of cerebral palsy, status post G-tube placed in June 2024, presents to ED from home secondary to leakage in her G-tube with feeding content. Per family, something similar happen 2 days ago, but resolved spontaneously. Denies
fever. Patient also has had constipation. Patient is unable to provide any further information.
Past History
Past History
ED Past Medical History: Seizures and Other (Cerebral palsy)
Social History
Tobacco: Non-smoker
Alcohol: None
Drug: None
Personal: Single
Living: with family
Employment: Not employed
Review of Systems
Review of Systems
Allergies reviewed?: Yes
Unable to obtain full review of systems at this time due to: non-verbal
All Other Systems: Not applicable
Phy Exam
Physical Exam
Physical Exam:
Physical Exam
General: mild distress, not acutely ill. afebrile
Head: nc/at.
Neck: supple. no meningeal signs.
Heart: s1/s2 regular rate and rhythm, no murmur. equal radial pulses.
Lungs: no acute respiratory distress. clear bilaterally
Abdomen: normal bowel sounds. G-tube present, without surrounding erythema/swelling
Neuro: alert and awake.
Skin: no rash
Course
Orders/Labs/Results
Orders:
Orders
10/06/24 23:00
Straight cath- Treatment ONCE
10/06/24 23:54
Basic Metabolic Panel Urgent
Complete Blood Count/With Diff Urgent
Manual Differential Urgent
Urinalysis Reflex To Culture Urgent
Date Specimen was Collected: 10/06/24
Time Specimen was Collected: 23:51
Urine Microscopic Reflex Cult Urgent
Urine Culture Urgent
MANSOOR Source: U
Specimen Description:
Date Specimen was Collected: 10/06/24
Time Specimen was Collected: 23:51
10/07/24 00:00
CR Obstruct Series W/pa Chest Urgent
Reason For Exam: vomiting with existing G-tube
10/07/24 01:36
0.9% Sodium Chloride 500 ml [Nss] 500 ml IV BOLUS
CefTRIAXone [Rocephin] 1,000 mg IV NOW STA
10/07/24 01:[address] Non Medication Order As Directed
Physician Order: Please place foot iv, due to difficult iv access
Above order entered?: Yes
10/07/24 03:22
Admit/Transfer Patient As Directed
Co-Sign Provider:
Level of Care: Observation services
Assign to:: Medical/Surgical
Physician / Group: hospitalist
Diagnosis: UTI, G tube problem
PRN Pain Medication Management As Directed
May give lesser potent ordered pain med per pt: Yes
preference::
Protocol:: Medication orders for pain may be administered in a
manner that supports deferring to patient preference
when the pt is:
- Requesting an ordered lesser potent pain medication.
Least to most potent pain medications are defined
as: acetaminophen < NSAID < tramadol < opioids
(morphine, oxycodone, hydromorphone).
- Requesting a lesser dose of the same medication IF
ORDERED.
- Requesting a less intrusive route of administration
if both routes are prescribed by the provider (PO <
IV).
10/07/24 03:23
Code Status As Directed
Resuscitation Status: Full Code
10/07/24 04:55
Acetaminophen [Tylenol] 650 mg PO Q4HPRN PRN
Dextrose 5%/Lactringers 1000ML [D5lr] 1,000 ml IV 60 mls/hr
Ondansetron Injectable [Zofran] 4 mg IV Q6HPRN PRN
Polyethylene Glycol Powder [Miralax] 17 grams TUBE DAILYPRN PRN
10/07/24 04:55
Consult Notification Routine
Specialty to Notify: Gastroenterology
Date consulting provider notified: 10/07/24
Time consulting provider notified: 08:11
Notified:: Provider
Comment: ANGELINA'diana Physician On-Call()
GASTROINTESTINAL CONSULT Routine
Consulting Provider: Samantha Albarran
Was physician already notified: No
Reason for consult: peg tube malfunction
Activity As Directed
Activity Level: With Assistance
Vital Signs As Directed
Frequency: Per unit guidelines
DX Deep Vein Thrombosis Video Routine
10/07/24 Breakfast
NPO
Allow oral meds: No
Allow clear liquids: No
10/07/24 08:00
Clobazam (Non-Form) [Onfi] 10 mg TUBE BID
Midodrine [ProAmatine] 15 mg TUBE BID AT 0800,1700
Montelukast Sodium [Singulair] 10 mg TUBE DAILY
Oxcarbazepine [Trileptal] 600 mg TUBE BID
Sennosides [Senna Syrup] 8.8 mg TUBE DAILY
10/07/24 18:00
Enoxaparin Sodium [Lovenox] 40 mg SC QPM
10/08/24 00:00
CefTRIAXone [Rocephin] 1,000 mg IV Q24H
Abnormal Lab Results
10/06/24
23:54
MCH 31.1 H pg
(27.0-31.0)
RDW 14.8 H %
(11.5-14.5)
MPV 12.0 H fL
(7.4-10.4)
Segmented Neutrophils 41 L %
(42-75)
Band Neutrophils 14 H %
(0-3)
Lymphocytes (Manual) 18 L %
(20-51)
Monocytes (Manual) 21 H %
(2-9)
BUN 30 H mg/dl
(7-17)
Ur Occult Blood Reflex 2+ A
(Negative)
Urine Nitrite (Reflex) Positive A
(Negative)
Urine Bilirubin 1+ A
(Negative)
Urine Urobilinogen 2+ A
(Neg - 1+)
Leukocyte Esterase Rfl 1+ A
(Negative)
Urine RBC 50-60 A /HPF
(0-2)
Urine WBC (Reflex) 50-60 A /HPF
(0-5)
Urine Bacteria (Reflex) Moderate A
(Negative)
10/06/24 23:54
10/06/24 23:54
Vital Signs
Initial and Last Documented VS:
Initial Vital Signs
Temp Pulse Resp BP Pulse Ox
97.5 F 99 18 104/68 99
10/06/24 21:11 10/06/24 21:11 10/06/24 21:11 10/06/24 21:11 10/06/24 21:11
Last Documented Vital Signs
Temp Pulse Resp BP Pulse Ox
97.0 F 72 16 106/69 98
10/07/24 09:30 10/07/24 09:30 10/07/24 09:30 10/07/24 09:30 10/07/24 09:30
MDM/Problems Addressed
MDM/Problems Addressed:
G-tube connected to wall suction, without any return of significant GI content. Abdomen remains soft and nontender.
UA noted, concerning for recurrent UTI, which may be affecting GI motility, contributing to patient's presenting symptoms. As such, patient will be admitted for IV antibiotic and further assessment, including potential GI consultation, if there
continues to be increased residual w tube feeding
*Critical Care Note
Total Time (30-74mins, 75-104mins- exclusive of procedures): Not Applicable
ED Attending Note
-
Portions of this chart may have been created with voice recognition software.� Occasional wrong word or��sound alike� substitutions may have occurred due to the inherent limitations of voice recognition software.
Discharge Plan
Departure
Patient Disposition: Admit
Date of Disposition: 10/07/24
Time of Disposition: 01:59
Admit to: Med/Surg
Presentation/result/management discussed w/ accepting MD/DO: Hospitalist
Discharge Problem:
UTI (urinary tract infection), G tube feedings
Interventions
Interventions:
*Risk Screen - Suicide Last Done: 10/07/24 05:34
*General Assessment Last Done: 10/06/24 21:11
*Neglect/Abuse Screening Last Done: 10/06/24 21:11
*ED COVID-19 Vaccine History Last Done: 10/07/24 05:15
*Nursing Disposition Last Done: 10/07/24 05:02
Discharge Date and Time
Discharge Date/Time: 10/07/24 05:02
[2024-10-07] VITALS (11 sets, daily range): BP systolic 79–117; BP diastolic 50–82; BMI 27.1
[2024-10-07 00:20] LABS: Hematocrit 41.2 % (37.0-47.0); Hemoglobin 14.1 g/dL (12.0-16.0); Mean Corp Hgb Conc. 34.2 g/dL (33.0-37.0); Mean Corpuscular Hgb 31.1 pg (27.0-31.0); Mean Corpuscular Volume 90.9 fL (81.0-99.0); Platelet Count 171 10^3/uL (130-400); Red Blood Cell Count 4.53 10^6/uL (4.20-5.40); Red Cell Dist. Width 14.8 % (11.5-14.5); White Blood Cell Count 7.2 10^3/uL (4.8-10.8)
[2024-10-07 00:29] LABS: Blood Urea Nitrogen 30 mg/dl (7-17); Calcium 9.2 mg/dl (8.4-10.2); Carbon Dioxide 24 mmol/L (22-30); Chloride 105 mmol/L (98-107); Glucose 92 mg/dl (70-99); Potassium 4.1 mmol/L (3.5-5.1); Sodium 141 mmol/L (135-145); eGFR > 60.00
[2024-10-07 00:39] LABS: Urine Albumin Trace (Neg - Trace); Urine Bilirubin 1+ (Negative); Urine Character Clear (Clear); Urine Color Amber; Urine Glucose Negative (Negative); Urine Ketone Negative (Negative); Urine Leukocyte 1+ (Negative); Urine Nitrite Positive (Negative); Urine Occult Blood 2+ (Negative); Urine Urobilinogen 2+ (Neg - 1+)
[2024-10-07 01:49] LABS: Atypical Lymphocytes 3 %
[2024-10-07 01:50] LABS: Platelets Checked Yes
[2024-10-07 01:51] LABS: Anisocytosis Slight; Normal RBC Morphology No; Total Cells Counted 100
[2024-10-07 02:00] LABS: Absolute Neutrophils -Man Diff 3.9 10^3/uL (1.4-6.5); Band Neutrophils 14 % (0-3); Eosinophils 3 % (0-6); Lymphocytes 18 % (20-51); Monocytes 21 % (2-9); Segmented Neutrophils 41 % (42-75)
[2024-10-07 02:02] LABS: Urine Calcium Oxalate Crystals Seen
[2024-10-07] MEDS: ROCEPHIN 1000 MG IV ×2 (02:03→23:05)
[2024-10-07] MEDS: NSS 500 IV (02:05)
[2024-10-07 02:10] LABS: Urine Red Blood Cell 50-60 /HPF (0-2)
[2024-10-07 02:11] LABS: Urine Bacteria Moderate (Negative); Urine White Cell 50-60 /HPF (0-5)
--- NOTE | 2024-10-07 03:16 | HPS.HSE ---
Family Physician
-
Family Physician: Timbo Courtney
Chief Complaint
-
Malfunctioning PEG tube
History of Present Illness
This is a 48-year-old female with history of cerebral palsy complicated by seizures and functional quadriplegia was nonverbal at baseline, has recurrent aspiration status post PEG tube placement, history of ovarian cancer and chronic hypotension who
presents to the emergency department from home with concern for PEG-tube malfunction.
Per family, something similar happen 2 days ago, but resolved spontaneously. She been getting her usual tube feeds when they attempted to change her clothing and she that the tube feed was leaking from the site of the PEG tube. There was no
erythema. Patient was not having any abdominal pain. She was having some foaming at the mouth but no vomiting. There was no shortness of breath. There has been no fevers or chills. Family notices a dark urine but denies foul odor. Denies fever.
Patient also has had constipation. Patient is unable to provide any further information. �G-tube appears to be flushing fine, when checked in ED.
She was afebrile, blood pressure was 88/60 with a pulse of 99. Was not saturation was 97% on room air. CBC was completely normal. Electrolytes BUN/creatinine were also normal. UA showed bacteriuria with pyuria and positive nitrites.
Medical History
Past Medical History
Past Medical History: Reports Other
Additional Past Medical History:
Cerebral palsy
Seizures
Chronic hypotension
Aspiration s/p PEG
Ovarian Ca
Past Surgical History: Reports None
Social History
Unable to obtain full social history at this time due to: Patient Non-verbal
Family History
Family History: Not pertinent
Allergies / Home Medications
Allergies reflects when Allergies were last updated in [facility].
Home Medications with original date entered in [facility]
Allergy/Medication List:
Allergies
Allergy/AdvReac Type Severity Reaction Status Date / Time
brompheniramine Allergy hyper Verified 10/06/24 21:11
[From Dimetapp Cold-Allergy
(PE)]
cephalexin [From Keflex] Allergy Unknown Verified 10/06/24 21:11
chloral hydrate Allergy hyper Verified 10/06/24 21:11
diphenhydramine Allergy hyper Verified 10/06/24 21:11
[From Benadryl]
latex Allergy Swelling Verified 10/06/24 21:11
levofloxacin Allergy Unknown Verified 10/06/24 21:11
phenobarbital Allergy hyper Verified 10/06/24 21:11
phenylephrine Allergy hyper Verified 10/06/24 21:11
[From Dimetapp Cold-Allergy
(PE)]
phenytoin [From Dilantin] Allergy Rash Verified 10/06/24 21:11
Sulfa (Sulfonamide Allergy Hives Verified 10/06/24 21:11
Antibiotics)
topiramate [From Topamax] Allergy Rash Verified 10/06/24 21:11
Home Medications
fluticasone propionate 50 mcg/actuation nasal spray,suspension 2 spray intranasal HS Allergies 03/17/24
clobazam 10 mg tablet 10 mg feeding tube BID #60 tabs 04/21/24
oxcarbazepine 300 mg tablet 600 mg (2 x 300 mg) feeding tube BID #120 tabs 04/21/24
polyethylene glycol 3350 17 gram oral powder packet (HealthyLax) 17 g feeding tube DAILYPRN PRN constipation #100 ea 04/21/24
Probiotic 1 cap feeding tube DAILY 06/12/24
ascorbic acid (vitamin C) 500 mg tablet (Vitamin C) 500 mg feeding tube HS Supplement 06/12/24
docusate sodium 50 mg/5 mL oral liquid 50 mg feeding tube BID Constipation 06/12/24
midodrine 5 mg tablet 15 mg feeding tube BID 06/12/24
montelukast 10 mg tablet 10 mg feeding tube DAILY Lung/Breathing Issues 06/12/24
sennosides 8.8 mg/5 mL oral syrup 8.8 mg feeding tube DAILY Constipation 06/12/24
Review of Systems
-
Unable to obtain full review of systems at this time due to: Patient Non-verbal
Physical Exam
Vital Signs
Vital Signs
Temp Pulse Resp BP Pulse Ox
97.5 F 99 18 88/62 97
10/06/24 21:11 10/06/24 21:11 10/06/24 21:11 10/07/24 03:00 10/07/24 00:18
Physical Exam
General: Well Developed, Well Nourished and No Apparent Distress
HEENT: NormoCephalic, Anicteric, Moist mucous membranes, Atraumatic and No Ptosis
Respiratory: Clear
Cardiac: S1/S2 and Regular Rhythm
Breast: Deferred by me
GI: Soft, Non Tender, Non Distended and Peg Tube
Rectal: Deferred by Provider
Genito-urinary: Deferred by me
Musculoskeletal: No Clubbing, No Cyanosis, No Edema and Other (qaudriplegia)
Skin: Warm
Neuro: Nonfocal/grossly intact and Other (non-verbal, )
Hematologic/Lymphatic: No Lymphadenopathy
Psych: Calm
Laboratory Results
-
10/06/24 23:54
10/06/24 23:54
Data Reviewed
-
Diagnostic Radiology: Image Personally Visualized and interpreted
Lab Data: Labs Reviewed by me
Old Records: Reviewed
Impression/Plan
-
IMPRESSION:
48 F with cerebral palsy and frequent aspiration events now s/p PEG comes in with PEG malfunction where feeding was leaking from around PEG site. No vomiting. No diarrhea. Has been having regular bms. Found to have a UTI. Abdominal xray without
airfluid levels to suggeest obstruction. Possible delayed emptying, ileus.
PLAN:
1. Tube malfunction - Flushing ok but possibly large residuals leading to leakage.
- admit to med/surg
- hold TF for now (On Compleat 1.5 45ml/hr with 50 ml/hr water flush for 16 hours daily)
- IV fluids with D5 LR
- GI consultation
- can use Tube for meds since flushing normally.
2. UTI - +nitrites, pyuria and bacteruia. No systemic findings but patient cannot communicate symptoms.
- urine cultures sent
- continue ceftriaxone for now.
3. Chronic hypotension
- midodrine per home regimen.
4. Seizure d/o
- continue clobazam and oxcarbazepine
DVT PPX - lovenox sq
Code status - full code
[2024-10-07] MEDS: D5LR 1000 IV ×2 (05:49→22:22)
[2024-10-07] MEDS: SINGULAIR 10 MG TUBE (10:08)
[2024-10-07] MEDS: ProAmatine 15 MG TUBE ×2 (10:08→16:55)
[2024-10-07] MEDS: TRILEPTAL 600 MG TUBE ×2 (10:09→19:27)
[2024-10-07] MEDS: ONFI 10 MG TUBE ×2 (10:09→19:27)
[2024-10-07] MEDS: FLUSH (NSS) 1 FLUSH IV (10:10)
--- NOTE | 2024-10-07 11:39 | W.PN.UPDATE ---
Update Note
Progress Note Update
Seen and examined independent of overnight physician. Nonbillable note. Discussed with patient parents patient at baseline usually has bowel movements every 4 days after she receives enema. Last enema was on and even with enema patient
has small hard stool. Family noticed of leakage of tube feeding around the PEG tube site. No nausea or vomiting.
General: Well Developed, Well Nourished and No Apparent Distress
HEENT: NormoCephalic, Anicteric, Moist mucous membranes, Atraumatic and No Ptosis
Respiratory: Clear
Cardiac: S1/S2 and Regular Rhythm
GI: Soft, Non Tender, Non Distended and Peg Tube
Musculoskeletal: No Clubbing, No Cyanosis, No Edema and Other (qaudriplegia)
Skin: Warm
Neuro: Nonfocal/grossly intact and Other (non-verbal, )
Hematologic/Lymphatic: No Lymphadenopathy
Psych: Calm
IMPRESSION:
48 F with cerebral palsy and frequent aspiration events now s/p PEG comes in with PEG malfunction where feeding was leaking from around PEG site. No vomiting. No diarrhea. Has been having regular bms. Found to have a UTI. Abdominal xray without
airfluid levels to suggeest obstruction. Possible delayed emptying, ileus.
PLAN:
Tube feeding leakage likely secondary to severe constipation versus large residual.
- At home on (On Compleat 1.5 45ml/hr with 50 ml/hr water flush for 16 hours daily)
- IV fluids with D5 LR till TF restarted.
- GI consultation for additional recs- ?peg tube malfunction. low likelihood
- Dietary eval for tube feeding
- Tube study was performed and Contrast instilled through the patient's indwelling PEG tube outlines the stomach and proximal small bowel, confirming placement.
Constipation
-Recommended to continue with Colace, senna and increase MiraLAX to twice daily
-Also will need additional medication regimen
-start with Enema
UTI - +nitrites, pyuria and bacteruia. No systemic findings but patient cannot communicate symptoms.
- urine cultures sent
- continue ceftriaxone for now.
Chronic hypotension
- midodrine per home regimen.
Seizure d/o
- continue clobazam and oxcarbazepine
Cerebral palsy with functional quadriplegia
Chronic dysphagia status post PEG tube
Chronic hypotension with midodrine
History of ovarian cancer status post surgery
DVT PPX - lovenox sq
Code status - full code
d/w with patient parents at bedside in details
[2024-10-07] MEDS: MIRALAX TUBE (11:44)
[2024-10-07] MEDS: SENNA SYRUP TUBE (11:44)
--- NOTE | 2024-10-07 11:50 | CON.GI ---
Addendum entered and electronically signed by Samantha Donaldson Do, MD 10/07/24 12:47:
I saw and examined the patient.
The HANDLING TECH's note was reviewed and I agree with the note.
Comment: Loretta is a 48yo W with h/o cerebral palsy and remote ovarian cancer stage 3 who presents for constipation and PEG leakage. PEG placed by Dr Whitten in March 2024. It is flushing but TF have been leaking around site. Despite miralax,
senna, colace daily patient gets constipation without BM in past 3 days despite enema at home. Father admits to having tough time changing her at home and there is no home health aid. Vitals stable. exam dry MMM, contractures, erythematous face,
midline scar, PEG in LUQ with scant discharge. Labs reviewed + UA
Impression
- Acute on chronic constipation
- PEG tube leakage
- + UA awaiting UC
- Cerebral palsy
- Remote ovrian cancer
- Non mobile
Recommendations
- Milk of molasses enema x1 now if no significant BM recommend mag citrate 10oz through PEG tube
- C/w miralax daily
- Hold TF until good BMs
- Consider resumption tomorrow
- Await urine culture
Will follow with you
Original Note:
Consultation
-
Date/Time Consultation Requested: 10/07/24 4475
Date/Time Consultation Performed: 10/07/24 1130
Requesting Provider: Dr. Rivera
Performing Provider: Dr. Albarran/DEBO Resendez
Reason for Consultation: peg leaking
Medical History
Chief Complaint / HPI
Chief Complaint: recurrent fever
History of Present Illness:
48yo with hx seizures/epilepsy, cerebral palsy, ovarian CA nonverbal, hx of aspiration and esophageal web, constipation, s/p PEG 03/2024 who presents to the ER with some leakage of tube feeds. Asked to evalaute for the same. Patient father is at
bedside who provides all history and information. She takes care of her at home. He states that the PEG tube has been working well. She does have increased constipation and her tube feed was changed from Osmolite to compleate. He does state that
she at baseline has a history of constipation on bowel regimen however over the past couple days she was having rockhard stools. At that time is when they noticed that she had some leakage of tube feed from around the skin. When they noticed this
is when they brought her to the hospital immediately. In the ER they were able to flush the tube without any difficulty. X-ray showed significant constipation. Tube study check showed patency of the PEG tube. The father states that her bowel
regimen consists of Colace, senna daily, 1 capful of MiraLAX daily and a saline enema every third day. There has been no difficulty with infusion of tube feeds. She is on a pump for this. She has had no signs of abdominal discomfort grimacing,
nausea or vomiting. There is been no fevers. WBC 7.2, hemoglobin 14.1, hematocrit 41.2, platelets 171, sodium 141, potassium 4.1, BUN 30, creatinine 0.8. Urine culture pending.
Past Medical History
Past Medical History: Cancer (ovarian cancer), Seizures (epilepsy) and Other (cerebral palsy)
Past Surgical History: Appendectomy, Gynecological (LUCERO, BSO) and Other (vagus nerve stimulator implant )
Social History
Tobacco: Non-Smoker
Alcohol: None
Drug: None
Personal: Single
Living: With Family
Family History
Family History: Reviewed & Not Pertinent
Allergies / Home Medications
Allergy/AdvReac Type Severity Reaction Status Date / Time
brompheniramine Allergy hyper Verified 10/06/24 21:11
[From Dimetapp Cold-Allergy
(PE)]
cephalexin [From Keflex] Allergy Unknown Verified 10/06/24 21:11
chloral hydrate Allergy hyper Verified 10/06/24 21:11
diphenhydramine Allergy hyper Verified 10/06/24 21:11
[From Benadryl]
latex Allergy Swelling Verified 10/06/24 21:11
levofloxacin Allergy Unknown Verified 10/06/24 21:11
phenobarbital Allergy hyper Verified 10/06/24 21:11
phenylephrine Allergy hyper Verified 10/06/24 21:11
[From Dimetapp Cold-Allergy
(PE)]
phenytoin [From Dilantin] Allergy Rash Verified 10/06/24 21:11
Sulfa (Sulfonamide Allergy Hives Verified 10/06/24 21:11
Antibiotics)
topiramate [From Topamax] Allergy Rash Verified 10/06/24 21:11
�Medication �Instructions �Recorded
fluticasone propionate 50 2 spray intranasal HS Allergies 03/17/24
mcg/actuation nasal
spray,suspension
clobazam 10 mg tablet 10 mg feeding tube BID #60 tabs 04/21/24
oxcarbazepine 300 mg tablet 600 mg (2 x 300 mg) feeding tube 04/21/24
BID #120 tabs
polyethylene glycol 3350 17 gram 17 g feeding tube DAILYPRN PRN 04/21/24
oral powder packet (HealthyLax) constipation #100 ea
Probiotic 1 cap feeding tube DAILY 06/12/24
ascorbic acid (vitamin C) 500 mg 500 mg feeding tube HS Supplement 06/12/24
tablet (Vitamin C)
docusate sodium 50 mg/5 mL oral 50 mg feeding tube BID Constipation 06/12/24
liquid
midodrine 5 mg tablet 15 mg feeding tube BID 06/12/24
montelukast 10 mg tablet 10 mg feeding tube DAILY 06/12/24
Lung/Breathing Issues
sennosides 8.8 mg/5 mL oral syrup 8.8 mg feeding tube DAILY 06/12/24
Constipation
Review of Systems
-
Unable to obtain full review of systems at this time due to: Patient Non Verbal
Vital Signs
Temp Pulse Resp BP Pulse Ox
99.1 F 86 20 100/57 97
10/07/24 05:00 11/23/24 05:00 10/07/24 05:00 10/07/24 05:00 10/07/24 08:30
Physical Exam
Exam
General: No Apparent Distress
Respiratory: Clear (Anterior)
Cardiac: Regular Rhythm
GI: Soft, Non Tender, Non Distended, Normal Bowel Sounds and Other (PEG tube in left upper quadrant, bumper at 4 cm, there was space between bumper and skin. Skin with some mild erythema, no signs of infection or exudate)
Skin: Warm and Dry
Psych: Calm and Other (Patient nonverbal, sleeping)
Results
WBC 7.2 10^3/uL (4.8-10.8) 10/06/24 23:54
Hgb 14.1 g/dL (12.0-16.0) 10/06/24 23:54
Hct 41.2 % (37.0-47.0) 10/06/24 23:54
MCV 90.9 fL (81.0-99.0) 10/06/24 23:54
Plt Count 171 10^3/uL (130-400) 10/06/24 23:54
Sodium 141 mmol/L (135-145) 10/06/24 23:54
Potassium 4.1 mmol/L (3.5-5.1) 10/06/24 23:54
Chloride 105 mmol/L (98-107) 10/06/24 23:54
Carbon Dioxide 24 mmol/L (22-30) 10/06/24 23:54
BUN 30 mg/dl (7-17) H 10/06/24 23:54
Creatinine 0.8 mg/dL (0.6-1.0) 10/06/24 23:54
Calcium 9.2 mg/dl (8.4-10.2) 10/06/24 23:54
Diagnostic Image Results:
Obstruction series:
IMPRESSION:
1. No acute cardiopulmonary process.
2. Non-specific bowel gas pattern without signs of obstruction.
3. Moderate diffuse colonic stool burden may reflect constipation.
PEG tube check:
Contrast instilled through the patient's indwelling PEG tube outlines the stomach and proximal small bowel, confirming placement.
Prior GI Procedures:
EGD: 04/13/2024 - Normal esophagus.
- Normal stomach.
- Normal examined duodenum.
- A PEG placement was successfully completed. 20 Burmese
- No specimens collected.
Colonoscopy: Never had
Assessment / Plan
-
48yo with hx seizures/epilepsy, cerebral palsy, ovarian CA nonverbal, hx of aspiration and esophageal web, constipation, s/p PEG 03/2024 who presents to the ER with some leakage of tube feeds. Asked to evalaute for the same. Patient father is at
bedside who provides all history and information. She takes care of her at home. He states that the PEG tube has been working well. She does have increased constipation and her tube feed was changed from Osmolite to compleate. He does state that
she at baseline has a history of constipation on bowel regimen however over the past couple days she was having rockhard stools. At that time is when they noticed that she had some leakage of tube feed from around the skin. Obstruction series with
constipation. IR tube study check with patency of PEG tube. UA appears dirty and temp of 99.1 urine culture pending.
Impression:
Leakage around site of PEG tube likely secondary to increased constipation
Patient also with increased neutrophils, UA appears dirty. Temp 99.1, ? Impending signs of UTI
Constipation
Plan:
-Milk of molasses enema, discussed with RN
-If enema does not produce a large volume of stool then will give dose of magnesium citrate will make sure to only 5 ounces at a time. Make sure patient's head of bed is elevated.
-Repeat abdominal imaging in a.m.
-Once cleared out will resume tube feedings
-
-
Thank you for consultation and allowing me to participate in the patient's care. Please call the [employer] ax consultant GI physician during the after hours with any questions or concerns.
--- NOTE | 2024-10-07 13:07 | PTCARENOTE ---
Milk of molasses enema given for constipation. RN disimpacted rectal cavity. Cleared large amount of formed yellow stool from this area. Pt mary carmen procedure. Will cont to monitor on going evacuation of rectum.
[2024-10-07] MEDS: ERYTHROMYCIN 0.5% OPHTHALMIC OINTMENT 1 APPLIC OPHTH ×3 (13:13→22:20)
--- NOTE | 2024-10-07 14:30 | CM ---
Pt seen bedside w/ father. Pt is non-verbal, functional quadriplegia.
Pt lives w/ mother and father in a single story rancher. No steps, has ramp access.
Per father, pt uses WC, brijesh lift, has home O2, has a shower chair and hospital bed. Pt has tube feed supplies as well.
Denies SNF hx
[facility]/PT/ST in the past. Per father he would like [facility] again for pt at d/c. Will place referral prior to d/c.
Denies financial insecurities.
Address, point of contacts and insurance verified
PCP: Dr. Timbo Courtney
Pharmacy: [facility]
Pt is currently admitted in OBS status. Reviewed [employer]LLAZ[employer] form with pt's father. Copy placed in chart
Plan: Home w/ [facility]
CM will cont. to follow for d/c planning
[2024-10-07] MEDS: DESENEX/MITRAZOL/ZEASORB 1 APPLIC TOPICAL ×2 (14:41→19:29)
[2024-10-07] MEDS: LOVENOX 40 MG SC (16:52)
[2024-10-07] MEDS: MIRALAX 17 GRAMS TUBE (16:52)
[2024-10-07] MEDS: CITROMA 300 ML PO (16:52)
[2024-10-07] MEDS: SENNA SYRUP 8.8 MG TUBE (16:52)
--- NOTE | 2024-10-07 17:00 | PTCARENOTE ---
Administered 5oz of mag citrate and will cont with the remainder 30min later. Pt is mary carmen infusing of mag citrate via peg tube. No further BM noted at this time. Will cont to monitor.
[2024-10-07] MEDS: STERILE WATER FOR INJECTION 10 ML IV (23:05)
[2024-10-07] MEDS: FLUSH (NSS) 2 FLUSH IV (23:05)
[2024-10-08 07:30] VITALS: BP 89/49
[2024-10-08] MEDS: ERYTHROMYCIN 0.5% OPHTHALMIC OINTMENT 1 APPLIC OPHTH ×4 (08:17→21:37)
[2024-10-08] MEDS: ProAmatine 15 MG TUBE ×2 (08:18→21:10)
[2024-10-08] MEDS: TRILEPTAL 600 MG TUBE ×2 (08:18→19:57)
[2024-10-08] MEDS: SINGULAIR 10 MG TUBE (08:18)
[2024-10-08] MEDS: ONFI 10 MG TUBE ×2 (08:18→19:57)
[2024-10-08] MEDS: SENNA SYRUP 8.8 MG TUBE ×2 (08:19→19:56)
[2024-10-08] MEDS: MIRALAX 17 GRAMS TUBE ×2 (08:19→19:56)
[2024-10-08] MEDS: DESENEX/MITRAZOL/ZEASORB 1 APPLIC TOPICAL ×2 (09:19→20:09)
--- NOTE | 2024-10-08 10:04 | W.PN.GI.CBS2 ---
Today's Communication / Plan
-
Ok to resume TF
Increase miralax to BID at home to prevent recurrent constipation
GI will sign off please call for questions
Assessment / Plan
-
Loretta is a 48yo W with h/o cerebral palsy and remote ovarian cancer stage 3 who presents for constipation and PEG leakage. PEG placed by Dr Whitten in March 2024. It is flushing but TF have been leaking around site. Despite miralax, senna, colace
daily patient gets constipation without BM in past 3 days despite enema at home. Father admits to having tough time changing her at home and there is no home health aid. Vitals stable. exam dry MMM, contractures, erythematous face, midline scar,
PEG in LUQ with scant discharge. Labs reviewed + UA
Impression
- Acute on chronic constipation
- PEG tube leakage
- + UA awaiting UC
- Cerebral palsy
- Remote ovrian cancer
- Non mobile
Recommendations
- C/w senna, colace and miralax increased to BID upon d/c to prevent recurrence
- Ok to resume TF at home rates. Defer to primary service
- Await urine culture
At this juncture GI will sign off please call for questions.
Subjective
Subjective
Date of Service: October 08, 2024
No issues overnight. Mother bedside and reports copious BMs this AM and yesterday. No leakage from PEG tube
Objective
Data Reviewed
Laboratory Data:
Laboratory Results
10/06/24 23:54
10/06/24 23:54
Vital Signs and I&O:
Vital Signs
Temp Pulse Resp BP Pulse Ox
98.6 F 73 18 89/49 100
10/08/24 07:30 10/08/24 07:30 10/08/24 07:30 10/08/24 07:30 10/08/24 07:30
Physical Exam
Physical Exam
GEN: No acute distress, conversant, pleasant
HEENT: anicteric, extraocular movements intact, clear oropharynx without exudates
GI: soft, non-distended, LUQ PEG with dressings c/d/i not tender to palpation, normal active bowel sounds, no hepatosplenomegaly
EXT: warm, well perfused, trace edema bilaterally
NEURO: AAOx3, non-focal
--- NOTE | 2024-10-08 10:18 | W.PN.HOSP.TC ---
Today's Communication/Plan
-
Restart tube feeding and monitor for tolerance
Switch to cefepime and await susceptibility results
Continue with aggressive bowel regimen
Assessment / Plan
Assessment / Plan
General: No Apparent Distress
HEENT: NormoCephalic, Anicteric, Moist mucous membranes, Atraumatic and No Ptosis
Respiratory: Clear anteriorly, on oxygen
Cardiac: S1/S2 and Regular Rhythm
GI: Soft, Non Tender, Non Distended and Peg Tube
Musculoskeletal: No Clubbing, No Cyanosis, No Edema and Other (qaudriplegia)
Skin: Warm
Neuro: Nonfocal/grossly intact and Other (non-verbal, )
Hematologic/Lymphatic: No Lymphadenopathy
Psych: Calm
IMPRESSION:
48 F with cerebral palsy and frequent aspiration events now s/p PEG comes in with PEG malfunction where feeding was leaking from around PEG site. No vomiting. No diarrhea. Has been having regular bms. Found to have a UTI. Abdominal xray without
airfluid levels to suggeest obstruction. Possible delayed emptying, ileus.
PLAN:
Tube feeding leakage likely secondary to severe constipation
- At home on (On Compleat 1.5 45ml/hr with 50 ml/hr water flush for 16 hours daily)
- DC IVF. Start tube feeding and monitor for tolerance
- GI consultation for additional recs.
- Dietary eval for tube feeding
- Tube study was performed and Contrast instilled through the patient's indwelling PEG tube outlines the stomach and proximal small bowel, confirming placement.
Constipation
-Recommended to continue with Colace, senna and increase MiraLAX to twice daily
-Also will need additional medication regimen prn
-s/p Enema
-AXR with improvement in stool burden
Pseudomonas UTI
-Follow-up on the susceptibility results. DC ceftriaxone start cefepime
Chronic hypotension
- midodrine per home regimen.
Seizure d/o
- continue clobazam and oxcarbazepine
Cerebral palsy with functional quadriplegia
Chronic dysphagia status post PEG tube
Chronic hypotension with midodrine
History of ovarian cancer status post surgery
DVT PPX - lovenox sq
Code status - full code
d/w with patient mother at bedside in details
Anticipated Discharge: Within 24 hours
Subjective/Interval History
-
Date of Service: October 08, 2024
multiple bm s/p enema and mag citrate
Objective Data
-
Vital Signs:
Vital Signs
Temp Pulse Resp BP Pulse Ox
98.6 F 73 18 89/49 100
10/08/24 07:30 10/08/24 07:30 10/08/24 07:30 10/08/24 07:30 10/08/24 07:30
Data Reviewed
-
Total Time Spent with Patient (in minutes): 52
[2024-10-08 12:02] VITALS: BP 121/73
[2024-10-08] MEDS: MAXIPIME 2000 MG IV ×2 (13:37→19:57)
[2024-10-08] MEDS: STERILE WATER FOR INJECTION 10 ML IV ×2 (13:37→19:57)
[2024-10-08 15:35] VITALS: BP 82/48
[2024-10-08] MEDS: NSS 500 IV ×2 (15:47→21:41)
[2024-10-08] MEDS: ProAmatine 10 MG TUBE (15:53)
[2024-10-08 17:14] VITALS: BP 121/65
[2024-10-08] MEDS: LOVENOX 40 MG SC (17:28)
--- NOTE | 2024-10-08 18:39 | PTCARENOTE ---
Pt Bp 82/49. Doctor made aware. Nss 500 ml bolus ordered and given. Also a one time dose of midodrine of 10mg given. Bp check after bolus infused 121/65 HR 72. 1800 dose of midodrine dose not given. Available later if needed for next shift.
[2024-10-08 18:53] LABS: Hemoglobin 12.3 g/dL (12.0-16.0); Mean Corp Hgb Conc. 32.4 g/dL (33.0-37.0); Mean Corpuscular Hgb 30.6 pg (27.0-31.0); Mean Corpuscular Volume 94.5 fL (81.0-99.0); Mean Platelet Volume 11.6 fL (7.4-10.4); Platelet Count 160 10^3/uL (130-400); Red Blood Cell Count 4.02 10^6/uL (4.20-5.40); Red Cell Dist. Width 15.1 % (11.5-14.5); White Blood Cell Count 4.8 10^3/uL (4.8-10.8)
[2024-10-08 19:19] LABS: ALT (SGPT) 729 U/L (0-35); AST (SGOT) 1062 U/L (14-36); Albumin 2.4 g/dl (3.5-5.0); Alkaline Phosphatase 175 U/L (38-126); Blood Urea Nitrogen 18 mg/dl (7-17); Calcium 8.5 mg/dl (8.4-10.2); Carbon Dioxide 28 mmol/L (22-30); Chloride 109 mmol/L (98-107); Estimated Creatinine Clearance 85 ml/min; Glucose 108 mg/dl (70-99); Potassium 3.6 mmol/L (3.5-5.1); Sodium 140 mmol/L (135-145); Total Bilirubin 5.2 mg/dl (0.2-1.3); Total Protein 5.6 g/dl (6.3-8.2); eGFR > 60.00
[2024-10-08 19:20] LABS: Absolute Neutrophils -Man Diff 2.5 10^3/uL (1.4-6.5); Band Neutrophils 13 % (0-3); Lymphocytes 24 % (20-51); Monocytes 22 % (2-9); Normal RBC Morphology Yes; Platelets Checked Yes; Segmented Neutrophils 41 % (42-75); Total Cells Counted 100
[2024-10-08 21:55] VITALS: BP 104/56
[2024-10-08 23:30] VITALS: BP 129/65
[2024-10-09] VITALS (12 sets, daily range): BP systolic 72–127; BP diastolic 44–70; BMI 27.1
--- NOTE | 2024-10-09 00:44 | W.PN.UPDATE ---
Update Note
Progress Note Update
At approx 19:30, Notified of Critical labs: AST 1062 and ALT 729, GI notified, order placed for Abdominal U/S with Doppler, can be done in am per Dr. Albarran.
Notified at approximately 2100,that patient's BP 70/49, ordered NSS 500 mls bolus and dose of midodrine. Patient's BP improved, at ~2200 BP 104/56, ~23:30 BP 129/54, HR 75.
--- NOTE | 2024-10-09 00:51 | PTCARENOTE ---
Critical labs: AST 1062 and ALT 729 at 20:22. Messaged DEBO. Abdominal U/S with Doppler ordered. pullman car clerk contacted Ultrasound, who states that a scheme technician would have to be called in to complete this U/S. DEBO states okay to wait for AM to
complete U/S.
--- NOTE | 2024-10-09 01:00 | PTCARENOTE ---
Patient's BP 70/49 at 21:10. Messaged BAIL BOND AGENT. NSS 500 mls bolus and 1700 dose of Midodrine given. Day shift nurse held Midodrine due to giving NSS bolus and one time order of Midodrine. BP 104/56 at 21:55. At 23:30 BP 129/54.
[2024-10-09] MEDS: STERILE WATER FOR INJECTION 10 ML IV ×3 (03:35→21:17)
[2024-10-09] MEDS: MAXIPIME 2000 MG IV ×3 (03:35→21:14)
[2024-10-09] MEDS: MIRALAX 17 GRAMS TUBE ×2 (07:39→21:16)
[2024-10-09] MEDS: ProAmatine 15 MG TUBE ×2 (07:40→15:49)
[2024-10-09] MEDS: ONFI 10 MG TUBE ×2 (07:41→21:15)
[2024-10-09] MEDS: SENNA SYRUP 8.8 MG TUBE ×2 (07:42→21:17)
[2024-10-09] MEDS: ERYTHROMYCIN 0.5% OPHTHALMIC OINTMENT 1 APPLIC OPHTH ×4 (07:43→22:37)
[2024-10-09] MEDS: DESENEX/MITRAZOL/ZEASORB 1 APPLIC TOPICAL ×2 (07:43→21:25)
[2024-10-09] MEDS: SINGULAIR 10 MG TUBE (07:43)
[2024-10-09] MEDS: TRILEPTAL 600 MG TUBE ×2 (07:43→21:15)
[2024-10-09] MEDS: NSS 250 IV ×3 (08:09→15:59)
--- NOTE | 2024-10-09 08:18 | PTCARENOTE ---
bp 72/47. confirmed manual. Dr. jackson notified. 250 nss bolus ordered and infusing. will recheck post bolus.
[2024-10-09 09:15] LABS: Blood Urea Nitrogen 18 mg/dl (7-17); Calcium 8.3 mg/dl (8.4-10.2); Carbon Dioxide 24 mmol/L (22-30); Chloride 109 mmol/L (98-107); Estimated Creatinine Clearance 73 ml/min; Glucose 138 mg/dl (70-99); Potassium 3.6 mmol/L (3.5-5.1); Sodium 142 mmol/L (135-145); eGFR > 60.00
--- NOTE | 2024-10-09 10:03 | W.PN.GI.CBS2 ---
Addendum entered and electronically signed by Samantha Donaldson Do, MD 10/09/24 18:02:
I saw and examined the patient.
The BLUEPRINT READER's note was reviewed and I agree with the note.
Comment: We are asked to see patient again for rise in LFTs. Exam vitals hypotensive several readings with SBP 77s. PEG with TF running with dressings c/d/i contracted. Labs reviewed
Suspect elevations in LFTs to be hypoperfusion in setting of several episodes of hypotension today. Suspect may be related to ? UTI. Await abd US. Trend LFTs avoid hepatoxins. Optimize BP and HR as best as possible. Will follow with you
Addendum entered and electronically signed by DEBO Pruitt 10/09/24 10:39:
family reports hx prior LFT elevation
07/19/24- bili 0.4, AST 50, ALT 33, alk phos 159
Original Note:
Today's Communication / Plan
-
+ stool overnight and less leakage from tube
still redness around tube site
will have staff check peg site and dressing under tube every 1-2 hours if wet
cont Miralax and senna BID
constipation may have been triggered by UTI
cont abx for UTI per medical team
pt also with marked elevated LFT's -- possible secondary to shock liver with hypotension vs other
for US doppler-- will add US abdomen
currently tolerating tube feed but reviewed with nursing to hold for US
trend LFT's -- add repeat this am along with lipase
if needed family does not feel pt would be able to do MRI
family updated
will follow
Assessment / Plan
-
Loretta is a 48yo W with h/o cerebral palsy and remote ovarian cancer stage 3 who presents for constipation and PEG leakage. PEG placed by Dr Whitten in March 2024. It is flushing but TF have been leaking around site. Despite miralax, senna, colace
daily patient gets constipation without BM in past several days despite enema at home. Asked to see also for elevated LFT's 10/08 bili 5.2, AST 1062, ALT 729 alk phos 175. Pt noted with period of hypotension since admission
Father admits to having tough time changing her at home and there is no home health aid. Vitals stable. exam dry MMM, contractures, erythematous face, midline scar, PEG in LUQ with scant discharge. Labs reviewed + UA
Impression
-increased LFT's
- Acute on chronic constipation
- PEG tube leakage
- + UA awaiting UC- pseudomonas
-hypotension after admission
- Cerebral palsy
- Remote hx ovarian cancer
- Non mobile
Recommendations:
+ stool overnight and less leakage from tube
still redness around tube site
will have staff check peg site and dressing under tube every 1-2 hours if wet
cont Miralax and senna BID
constipation may have been triggered by UTI
cont abx for UTI per medical team
pt also with marked elevated LFT's -- possible secondary to shock liver with hypotension vs other
for US doppler-- will add US abdomen
currently tolerating tube feed but reviewed with nursing to hold for US
trend LFT's -- add repeat this am along with lipase
if needed family does not feel pt would be able to do MRI
family updated
will follow
Subjective
Subjective
Date of Service: October 09, 2024
10/08 yellow stool, on tube feeds
Objective
Data Reviewed
Laboratory Data:
Laboratory Results
10/09/24 08:25
Laboratory Results
Total Bilirubin 5.2 mg/dl (0.2-1.3) H 10/08/24 18:44
AST 1062 U/L (14-36) H* 10/08/24 18:44
ALT 729 U/L (0-35) H* 10/08/24 18:44
Alkaline Phosphatase 175 U/L (38-126) H 10/08/24 18:44
Vital Signs and I&O:
Vital Signs
Temp Pulse Resp BP Pulse Ox
98.8 F 63 15 113/70 97
10/09/24 07:20 10/09/24 09:45 10/09/24 07:20 10/09/24 09:45 10/09/24 07:20
I&O
10/08/24 10/09/24 10/10/24
06:59 06:59 06:59
Intake Total 1560 / 1560
Balance 1560 / 1560
Physical Exam
Physical Exam
HEENT: Moist mucous membranes
Cardiology: Normal Sinus Rhythm
Pulmonary: Clear
GI: Soft, Non Distended, Non Tender (limited exam with pt alertness ) and Other (peg site intact with some redness around tube)
Neuro: Other (non verbal on exam )
[2024-10-09 10:18] LABS: Hematocrit 39.1 % (37.0-47.0); Hemoglobin 12.8 g/dL (12.0-16.0); Mean Corp Hgb Conc. 32.7 g/dL (33.0-37.0); Mean Corpuscular Hgb 31.2 pg (27.0-31.0); Mean Corpuscular Volume 95.4 fL (81.0-99.0); Mean Platelet Volume 12.1 fL (7.4-10.4); Platelet Count 154 10^3/uL (130-400); Red Cell Dist. Width 15.5 % (11.5-14.5); White Blood Cell Count 4.8 10^3/uL (4.8-10.8)
--- NOTE | 2024-10-09 10:30 | CM ---
Addendum entered by Teodora Hi RN 10/09/24 15:37:
CM spoke with the patient's father and mother at the bedside. Per father, awaiting additional testing. Patient is approved through insurance for an CHEMISTRY TECHNICAL OFFICER and aide, but insurance progressive care nurse is unable to find staffing to accommodate the patient.
Original Note:
Reviewed the chart notes. Referral for [facility] sent via [facility]. CM continues to be available to patient/family and is monitoring medical plan for needs at discharge.
Plan: Discharge to home with [facility] services.
--- NOTE | 2024-10-09 10:42 | W.PN.HOSP.TC ---
Today's Communication/Plan
-
Check an ultrasound of the abdomen.
Continue with cefepime. Add Flagyl.
Assessment / Plan
Assessment / Plan
IMPRESSION:
48 F with cerebral palsy and frequent aspiration events now s/p PEG comes in with PEG malfunction where feeding was leaking from around PEG site. No vomiting. No diarrhea. Has been having regular bms. Found to have a UTI. Abdominal xray without
airfluid levels to suggest obstruction. Possible delayed emptying, ileus.
PLAN:
Tube feeding leakage likely secondary to severe constipation
- At home on (On Compleat 1.5 45ml/hr with 50 ml/hr water flush for 16 hours daily)
- o tube feeding and monitor for tolerance
- GI following.
- Dietary eval for tube feeding
- Tube study was performed and Contrast instilled through the patient's indwelling PEG tube outlines the stomach and proximal small bowel, confirming placement.
Constipation
-Recommended to continue with Colace, senna and increase MiraLAX to twice daily
-Also will need additional medication regimen prn
-s/p Enema
-AXR with improvement in stool burden
Abnormal LFTs acute cholecystic hepatitis picture noted with elevated bilirubin and transaminitis. Patient lethargic and no history available. No prior history of biliary disease according to the father. Check an ultrasound. Add Flagyl to
cefepime to cover for any biliary source of infection for now.
Pseudomonas UTI
-Follow-up on the susceptibility results. DC ceftriaxone started cefepime
Chronic hypotension
- midodrine per home regimen.
Seizure d/o
- continue clobazam and oxcarbazepine
Cerebral palsy with functional quadriplegia
Chronic dysphagia status post PEG tube
Chronic hypotension with midodrine
History of ovarian cancer status post surgery
DVT PPX - lovenox sq
Code status - full code
d/w with patient mother at bedside today.
Patient is approved for home health but father is having difficulty in obtaining HAND ROLLER ENGRAVER and home health aides. He is looking at placement-plan is to try and get there after holidays..
Total time spent on today's encounter was 52 minutes which included time spent in counseling the patient/family regarding diagnosis and treatment plan as listed above, goals of care, and symptom management. Case was discussed with nursing staff,
specialists, and care coordinators/case management. All labs and imaging personally reviewed by me. Remainder the time spent in detailed review of previous records, lab data, imaging, and other medical provider documentation.
Anticipated Discharge: > 48 hours
Subjective/Interval History
-
Date of Service: October 09, 2024
Patient is lethargic today. Blood pressure was low requiring fluid resuscitation.
According to father at bedside patient has been sleepy more so since admission.
Objective Data
-
Labs:
Laboratory Results
10/09/24 10/09/24
08:25 09:37
WBC Cancelled 4.8
Hgb Cancelled 12.8
Hct Cancelled 39.1
Plt Count Cancelled 154
Sodium 142
Potassium 3.6
Chloride 109 H
Carbon Dioxide 24
BUN 18 H
Creatinine 0.7
Glucose 138 H
Calcium 8.3 L
Total Bilirubin Pending
AST Pending
ALT Pending
Alkaline Phosphatase Pending
Vital Signs:
Vital Signs
Temp Pulse Resp BP Pulse Ox
98.8 F 63 15 113/70 97
10/09/24 07:20 10/09/24 09:45 10/09/24 07:20 10/09/24 09:45 10/09/24 07:20
I&O
10/08/24 10/09/24 10/10/24
06:59 06:59 06:59
Intake Total 1560 / 1560
Balance 1560 / 1560
Review of Systems
-
Unable to obtain full review of systems at this time due to: Patient Non-verbal
Physical Exam
-
General: Comfortable
Respiratory: Non Labored Respirations; Negative Accessory Resp Muscle Use
Cardiac: Regular Rhythm and S1/S2
GI: Soft, Nondistended and Normal Bowel Sounds
Neuro: Negative Awake or Alert
Psych: Calm
Data Reviewed
-
Labs: Labs Reviewed by me
[2024-10-09 10:50] LABS: ALT (SGPT) 721 U/L (0-35); Albumin 2.3 g/dl (3.5-5.0); Alkaline Phosphatase 163 U/L (38-126); Direct Bilirubin 4.5 mg/dl (0.0-0.4); Lipase 113 U/L (23-300); Total Bilirubin 5.2 mg/dl (0.2-1.3); Total Protein 5.5 g/dl (6.3-8.2)
[2024-10-09 11:00] LABS: AST (SGOT) 1088 U/L (14-36)
[2024-10-09 11:13] LABS: Absolute Neutrophils -Man Diff 2.8 10^3/uL (1.4-6.5); Band Neutrophils 4 % (0-3); Eosinophils 5 % (0-6); Lymphocytes 16 % (20-51); Metamyelocytes 1 % (-); Monocytes 17 % (2-9); Myelocytes 1 % (-); Segmented Neutrophils 56 % (42-75)
[2024-10-09 11:14] LABS: Normal RBC Morphology Yes; Platelets Checked Yes; Total Cells Counted 100
[2024-10-09] MEDS: FLAGYL 500 MG 100 IV ×2 (12:36→21:16)
--- NOTE | 2024-10-09 16:31 | PTCARENOTE ---
bp 77/46. Dr. jackson notified. 250 nss bolus admin and given. bp now 123/72.
[2024-10-09] MEDS: LOVENOX 40 MG SC (18:00)
[2024-10-10] VITALS (7 sets, daily range): BP systolic 86–102; BP diastolic 38–67; BMI 27.6
[2024-10-10] MEDS: MAXIPIME 2000 MG IV ×3 (03:17→20:31)
[2024-10-10] MEDS: STERILE WATER FOR INJECTION 10 ML IV ×3 (03:18→20:32)
[2024-10-10] MEDS: FLAGYL 500 MG 100 IV ×3 (03:19→20:33)
[2024-10-10] MEDS: ProAmatine 15 MG TUBE ×2 (07:58→16:45)
[2024-10-10] MEDS: TRILEPTAL 600 MG TUBE ×2 (07:59→20:33)
[2024-10-10] MEDS: ONFI 10 MG TUBE ×2 (07:59→20:33)
[2024-10-10] MEDS: SINGULAIR 10 MG TUBE (07:59)
[2024-10-10] MEDS: MIRALAX 17 GRAMS TUBE ×2 (07:59→20:32)
[2024-10-10] MEDS: SENNA SYRUP 8.8 MG TUBE ×2 (08:00→20:32)
[2024-10-10] MEDS: DESENEX/MITRAZOL/ZEASORB 1 APPLIC TOPICAL ×2 (08:17→20:34)
[2024-10-10] MEDS: ERYTHROMYCIN 0.5% OPHTHALMIC OINTMENT 1 APPLIC OPHTH ×4 (08:17→22:19)
[2024-10-10 08:32] LABS: Hematocrit 38.6 % (37.0-47.0); Hemoglobin 12.4 g/dL (12.0-16.0); Mean Corp Hgb Conc. 32.1 g/dL (33.0-37.0); Mean Corpuscular Hgb 30.4 pg (27.0-31.0); Mean Corpuscular Volume 94.6 fL (81.0-99.0); Mean Platelet Volume 11.8 fL (7.4-10.4); Platelet Count 137 10^3/uL (130-400); Red Blood Cell Count 4.08 10^6/uL (4.20-5.40); Red Cell Dist. Width 15.6 % (11.5-14.5)
[2024-10-10 08:55] LABS: ALT (SGPT) 713 U/L (0-35); Albumin 2.3 g/dl (3.5-5.0); Alkaline Phosphatase 151 U/L (38-126); Blood Urea Nitrogen 20 mg/dl (7-17); Calcium 8.5 mg/dl (8.4-10.2); Carbon Dioxide 25 mmol/L (22-30); Chloride 109 mmol/L (98-107); Estimated Creatinine Clearance 86 ml/min; Glucose 146 mg/dl (70-99); Sodium 141 mmol/L (135-145); Total Bilirubin 5.6 mg/dl (0.2-1.3); Total Protein 5.6 g/dl (6.3-8.2); eGFR > 60.00
[2024-10-10 09:04] LABS: AST (SGOT) 1058 U/L (14-36)
[2024-10-10 12:35] LABS: Lactic Acid 1.2 mmol/L (0.7-2.0)
--- NOTE | 2024-10-10 12:45 | CM ---
Reviewed the chart notes. [facility] has accepted the patient via [facility]. continues to be available to patient/family and is monitoring medical plan for needs at discharge.
Plan: Discharge to home with [facility] services when medically stable.
[place]
--- NOTE | 2024-10-10 13:37 | W.PN.HOSP.TC ---
Today's Communication/Plan
-
CW abx
HIDA
Follow LFTs
Assessment / Plan
Assessment / Plan
IMPRESSION:
48 F with cerebral palsy and frequent aspiration events now s/p PEG comes in with PEG malfunction where feeding was leaking from around PEG site. No vomiting. No diarrhea. Has been having regular bms. Found to have a UTI. Abdominal xray without
airfluid levels to suggest obstruction. Possible delayed emptying, ileus.
PLAN:
Tube feeding leakage likely secondary to severe constipation
- At home on (On Compleat 1.5 45ml/hr with 50 ml/hr water flush for 16 hours daily)
- CW tube feeding and monitor for tolerance
- GI following.
- Dietary eval for tube feeding
- Tube study was performed and Contrast instilled through the patient's indwelling PEG tube outlines the stomach and proximal small bowel, confirming placement.
Constipation
-Recommended to continue with Colace, senna and increase MiraLAX to twice daily
-Also will need additional medication regimen prn
-s/p Enema
-AXR with improvement in stool burden
Abnormal LFTs acute cholecystic hepatitis picture noted with elevated bilirubin and transaminitis. . No prior history of biliary disease according to the father. CW Flagyl to cefepime to cover for any biliary source of infection for now.
Patient with persistent abnormal LFTs. I doubt this is ischemic hepatitis. Patient has chronic hypotension on midodrine. Most of the systolics after initial fluid resuscitation's are more than 90s. I did not see any other organ dysfunction
especially her creatinine has been stable since presentation.
Ultrasound of the abdomen with Doppler shows generalized gallbladder wall thickening without stones. I will still consider further imaging of the abdomen as sensitivities of ultrasound in dx of gallstones is in high 80s.
Obtain HIDA.
Pseudomonas UTI
-Follow-up on the susceptibility results. DC ceftriaxone started cefepime
Chronic hypotension
- midodrine per home regimen. Dose increased on this admission
Seizure d/o
- continue clobazam and oxcarbazepine
Cerebral palsy with functional quadriplegia
Chronic dysphagia status post PEG tube
Chronic hypotension with midodrine
History of ovarian cancer status post surgery
DVT PPX - lovenox sq
Code status - full code
d/w with patient mother at bedside today.
Total time spent on today's encounter was 52 minutes which included time spent in counseling the patient/family regarding diagnosis and treatment plan as listed above, goals of care, and symptom management. Case was discussed with nursing staff,
specialists, and care coordinators/case management. All labs and imaging personally reviewed by me. Remainder the time spent in detailed review of previous records, lab data, imaging, and other medical provider documentation.
Anticipated Discharge: > 48 hours
Subjective/Interval History
-
Date of Service: October 10, 2024
She is more alert than yesterday.
Nonverbal at her baseline.
Objective Data
-
Labs:
Laboratory Results
10/10/24
08:05
WBC 4.0 L
Hgb 12.4
Hct 38.6
Plt Count 137
Sodium 141
Potassium 4.0
Chloride 109 H
Carbon Dioxide 25
BUN 20 H
Creatinine 0.6
Glucose 146 H
Calcium 8.5
Total Bilirubin 5.6 H
AST 1058 H*
ALT 713 H*
Alkaline Phosphatase 151 H
Vital Signs:
Vital Signs
Temp Pulse Resp BP Pulse Ox
98.7 F 79 16 94/62 98
10/10/24 11:10 10/10/24 11:10 10/10/24 11:10 10/10/24 11:10 10/10/24 11:10
I&O
10/09/24 10/10/24 10/11/24
06:59 06:59 06:59
Intake Total 1560 / 1560 1820 / 1820
Balance 1559
Review of Systems
-
Unable to obtain full review of systems at this time due to: Patient Non-verbal
Physical Exam
-
General: Comfortable
Respiratory: Non Labored Respirations and Other (Normally on home O2); Negative Accessory Resp Muscle Use
Cardiac: Regular Rhythm and S1/S2
GI: Soft, Nondistended and Normal Bowel Sounds
Neuro: Awake and Alert
Psych: Calm
Data Reviewed
-
Labs: Labs Reviewed by me
[2024-10-10] MEDS: NSS IV (14:23)
--- NOTE | 2024-10-10 16:23 | W.PN.GI.CBS2 ---
Today's Communication / Plan
-
LFTs remain elevated
US limited but bile ducts normal, non dilated. No gallstones, but GBWT 5.1mm
Trend LFTs further in case this is shock liver form hypotension
Could be medication induced also
She has vagal stimulator in place, though not being used. May not be able to sit for MRI either
EUS or ERCP could be done but degree of suspicion is not high enough for invasive procedures at this point
Assessment / Plan
-
Loretta is a 48yo W with h/o cerebral palsy and remote ovarian cancer stage 3 who presents for constipation and PEG leakage. PEG placed by Dr Whitten in March 2024. It is flushing but TF have been leaking around site. Despite miralax, senna, colace
daily patient gets constipation without BM in past several days despite enema at home. Asked to see also for elevated LFT's 10/08 bili 5.2, AST 1062, ALT 729 alk phos 175. Pt noted with period of hypotension since admission
Father admits to having tough time changing her at home and there is no home health aid. Vitals stable. exam dry MMM, contractures, erythematous face, midline scar, PEG in LUQ with scant discharge. Labs reviewed + UA
Impression
-increased LFT's
- Acute on chronic constipation
- PEG tube leakage
- + UA awaiting UC- pseudomonas
-hypotension after admission
- Cerebral palsy
- Remote hx ovarian cancer
- Non mobile
Subjective
Subjective
Date of Service: October 10, 2024
Pt nonverbal. Father at bedside
Objective
Data Reviewed
Laboratory Data:
Laboratory Results
10/10/24 08:05
10/10/24 08:05
Laboratory Results
Total Bilirubin 5.6 mg/dl (0.2-1.3) H 10/10/24 08:05
AST 1058 U/L (14-36) H* 10/10/24 08:05
ALT 713 U/L (0-35) H* 10/10/24 08:05
Alkaline Phosphatase 151 U/L (38-126) H 10/10/24 08:05
Lipase 113 U/L (23-300) 10/09/24 08:25
Vital Signs and I&O:
Vital Signs
Temp Pulse Resp BP Pulse Ox
98.7 F 79 16 94/62 98
10/10/24 11:10 10/10/24 11:10 10/10/24 11:10 10/10/24 11:10 10/10/24 11:10
I&O
10/09/24 10/10/24 10/11/24
06:59 06:59 06:59
Intake Total 1560 / 1560 1820 / 1820
Balance 1560 / 1560 1820 / 1820
Physical Exam
Physical Exam
GI: Soft, Non Distended and Non Tender
[2024-10-10] MEDS: LOVENOX 40 MG SC (16:45)
[2024-10-11] MEDS: NSS 1000 IV ×2 (00:10→19:45)
--- NOTE | 2024-10-11 00:19 | PTCARENOTE ---
TF on hold at this time, IVF's at 80/hr infusing.
[2024-10-11 03:19] VITALS: BP 97/55
[2024-10-11] MEDS: MAXIPIME 2000 MG IV ×3 (04:02→19:44)
[2024-10-11] MEDS: FLAGYL 500 MG 100 IV ×3 (04:03→19:44)
[2024-10-11] MEDS: STERILE WATER FOR INJECTION 10 ML IV ×3 (04:03→19:44)
[2024-10-11 08:04] VITALS: BP 80/44
[2024-10-11] MEDS: ProAmatine 15 MG TUBE ×2 (11:34→18:53)
[2024-10-11] MEDS: SENNA SYRUP 8.8 MG TUBE ×2 (11:34→19:43)
[2024-10-11] MEDS: MIRALAX 17 GRAMS TUBE ×2 (11:35→19:42)
[2024-10-11 11:36] VITALS: BP 101/57
[2024-10-11 11:36] LABS: Hematocrit 38.9 % (37.0-47.0); Mean Corp Hgb Conc. 33.4 g/dL (33.0-37.0); Mean Corpuscular Hgb 31.4 pg (27.0-31.0); Platelet Count 133 10^3/uL (130-400); Red Blood Cell Count 4.14 10^6/uL (4.20-5.40); Red Cell Dist. Width 15.9 % (11.5-14.5); White Blood Cell Count 5.5 10^3/uL (4.8-10.8)
[2024-10-11] MEDS: SINGULAIR 10 MG TUBE (11:36)
[2024-10-11] MEDS: ERYTHROMYCIN 0.5% OPHTHALMIC OINTMENT 1 APPLIC OPHTH ×4 (11:36→21:57)
[2024-10-11] MEDS: TRILEPTAL 600 MG TUBE ×2 (11:36→19:43)
[2024-10-11] MEDS: ONFI 10 MG TUBE ×2 (11:37→19:43)
[2024-10-11] MEDS: DESENEX/MITRAZOL/ZEASORB 1 APPLIC TOPICAL ×2 (11:40→19:45)
--- NOTE | 2024-10-11 12:15 | W.PN.HOSP.TC ---
Today's Communication/Plan
-
Follow HIDA
Follow LFT
CW ABX
Assessment / Plan
Assessment / Plan
IMPRESSION:
48 F with cerebral palsy and frequent aspiration events now s/p PEG comes in with PEG malfunction where feeding was leaking from around PEG site. No vomiting. No diarrhea. Has been having regular bms. Found to have a UTI. Abdominal xray without
airfluid levels to suggest obstruction. Possible delayed emptying, ileus.
PLAN:
Tube feeding leakage likely secondary to severe constipation
- At home on (On Compleat 1.5 45ml/hr with 50 ml/hr water flush for 16 hours daily) .
- CW tube feeding which she seems to tolerance .
- GI following.
- Tube study was performed and Contrast instilled through the patient's indwelling PEG tube outlines the stomach and proximal small bowel, confirming placement.
Constipation
-Recommended to continue with Colace, senna and increase MiraLAX to twice daily.
-Also will need additional medication regimen prn .
-s/p Enema.
-AXR with improvement in stool burden .
Abnormal LFTs acute cholecystic hepatitis picture noted with elevated bilirubin and transaminitis. . No prior history of biliary disease according to the father. CW Flagyl to cefepime to cover for any biliary source of infection for now.
Patient with persistent abnormal LFTs. I doubt this is ischemic hepatitis. Patient has chronic hypotension on midodrine. Most of the systolics after initial fluid resuscitation's are more than 90s. I did not see any other organ dysfunction
especially her creatinine has been stable since presentation.
Ultrasound of the abdomen with Doppler shows generalized gallbladder wall thickening without stones. I will still consider further imaging of the abdomen as sensitivities of ultrasound in dx of gallstones is in high 80s.
Obtain HIDA.
DW GI -may need CT A/P
Pseudomonas UTI
-Follow-up on the susceptibility results. cw cefepime day 4/5
Chronic hypotension
- Mostly of the systolics are in 90s at home too per
- cw midodrine
Seizure d/o
- continue clobazam and oxcarbazepine
Cerebral palsy with functional quadriplegia
Chronic dysphagia status post PEG tube
Chronic hypotension with midodrine
History of ovarian cancer status post surgery
DVT PPX - lovenox sq
Code status - full code
d/w with patient father and brother at bedside.
Total time spent on today's encounter was 52 minutes which included time spent in counseling the patient/family regarding diagnosis and treatment plan as listed above, goals of care, and symptom management. Case was discussed with nursing staff,
specialists, and care coordinators/case management. All labs and imaging personally reviewed by me. Remainder the time spent in detailed review of previous records, lab data, imaging, and other medical provider documentation.
Anticipated Discharge: > 48 hours
Subjective/Interval History
-
Date of Service: October 11, 2024
Patient nonverbal which is her baseline.
Her eyes are open and looks around. No meaningful response to stimuli.
Objective Data
-
Labs:
Laboratory Results
10/11/24
11:20
WBC 5.5
Hgb 13.0
Hct 38.9
Plt Count 133
Sodium Pending
Potassium Pending
Chloride Pending
Carbon Dioxide Pending
BUN Pending
Creatinine Pending
Glucose Pending
Calcium Pending
Total Bilirubin Pending
AST Pending
ALT Pending
Alkaline Phosphatase Pending
Vital Signs:
Vital Signs
Temp Pulse Resp BP Pulse Ox
97.4 F 76 17 101/57 96
10/11/24 11:36 10/11/24 11:36 10/11/24 11:36 10/11/24 11:36 10/11/24 11:36
I&O
1110/11/24 10/12/24
06:59 06:59 06:59
Intake Total 1819 / 1090
Balance 1819
Review of Systems
-
Unable to obtain full review of systems at this time due to: Patient Non-verbal
Physical Exam
-
General: No Apparent Distress
Respiratory: Non Labored Respirations; Negative Wheezes (anteriorly) or Accessory Resp Muscle Use
Cardiac: Regular Rhythm and S1/S2
GI: Soft, Normal Bowel Sounds and Peg Tube
Neuro: Awake and Alert
Psych: Calm
Data Reviewed
-
Labs: Labs Reviewed by me
--- NOTE | 2024-10-11 13:23 | W.PN.GI.CBS2 ---
Addendum entered and electronically signed by Emma Anand MD 10/12/24 11:35:
error
Addendum entered and electronically signed by Paulo Fernández MD 10/11/24 14:12:
I saw and examined the patient.
The WOOD TILE INSTALLER or PA's note was reviewed and I agree with the note.
Comment: Pt nonverbal, no acute distress
ABD soft, no tenderness elicited. Parents state that she will grimace with pain
REC:
HIDA fills GB but not SB, though nonvisualization of SB can be due to jaundice/elevated bili
LFTs pending today
CBD stone/obstruction could be possible, but no tenderness appreciated on exam. US was limited study. Cannot get MRI
Await CT abd/pelvis ordered. She has hx ovarian cancer 5 yrs ago s/p extensive resection and hormonal therapy, no chemo
t/c EUS/ERCP but degree of suspicion not high enough at this time
t/c liver bx as well
Will follow
Addendum entered and electronically signed by DEBO Pruitt 10/11/24 13:59:
hep A IGM pending
Original Note:
Today's Communication / Plan
-
pt having regular stools with constipation on admission
currently on tube feeds and tolerating
cont laxative regiment with Miralax and senna BID
still issues with drop in BP despite midodrine and persistent elevated LFT's
elevated LFT's related to shock liver with hypotension, biliary vs medication vs other
HIDA completed with no cystic duct obstruction limited SB activity with elevated bili
for CT scan today
pt cannot do MRI with hx stimulator and family feels cannot sit for study
cont to trend LFT's pending for today
if still elevated consider EUS but will proceed with non invasive testing first
add INR for AM
Assessment / Plan
-
Loretta is a 48yo W with h/o cerebral palsy and remote ovarian cancer stage 3 who presents for constipation and PEG leakage. PEG placed by Dr Whitten in March 2024. It is flushing but TF have been leaking around site. Despite miralax, senna, colace
daily patient gets constipation without BM in past several days despite enema at home. Asked to see also for elevated LFT's 10/08 bili 5.2, AST 1062, ALT 729 alk phos 175. Pt noted with period of hypotension since admission
10/11 NM Hepatobiliary (hida)
Impression: No scintigraphic evidence of cystic duct obstruction.
Nonvisualization of activity in the small bowel and vicarious excretion of activity most likely related to elevated serum bilirubin and not biliary tract obstruction.
10/09 US doppler
Normal ultrasound evaluation of the abdominal vasculature.
Limited visualization of the liver secondary to positioning and requiring intercostal imaging. Normal in size.
No gallstones, though there is generalized gallbladder wall thickening measuring up to 5.1 mm. Uncertain etiology.
No bile duct dilatation.
No obstructive uropathy. Renal cysts.
Impression
-increased LFT's
-US with GBWT
- Acute on chronic constipation
- PEG tube leakage- improved
- + UA awaiting UC- pseudomonas
-hypotension after admission
- Cerebral palsy
- Remote hx ovarian cancer
- Non mobile
PLAN:
pt having regular stools with constipation on admission
currently on tube feeds and tolerating
cont laxative regiment with Miralax and senna BID
still issues with drop in BP despite midodrine and persistent elevated LFT's
elevated LFT's related to shock liver with hypotension, biliary vs medication vs other
HIDA completed with no cystic duct obstruction limited SB activity with elevated bili
for CT scan today
pt cannot do MRI with hx stimulator and family feels cannot sit for study
cont to trend LFT's pending for today
if still elevated consider EUS but will proceed with non invasive testing first
add INR for AM
Subjective
Subjective
Date of Service: October 11, 2024
10/11/24 brown liquid stools, limited exam as non verbal, remains on tube feeds still with periods of hypotension with BP 80/44 this am
Objective
Data Reviewed
Laboratory Data:
Laboratory Results
10/11/24 11:20
Laboratory Results
Total Bilirubin Cancelled 10/11/24 11:20
AST Cancelled 10/11/24 11:20
ALT Cancelled 10/11/24 11:20
Alkaline Phosphatase Cancelled 10/11/24 11:20
Lipase 113 U/L (23-300) 10/09/24 08:25
Vital Signs and I&O:
Vital Signs
Temp Pulse Resp BP Pulse Ox
97.4 F 76 17 101/57 96
10/11/24 11:36 10/11/24 11:36 10/11/24 11:36 10/11/24 11:36 10/11/24 11:36
I&O
10/10/24 10/11/24 10/12/24
06:59 06:59 06:59
Intake Total 1819 1091 / 1091
Balance 1819 1091 / 1091
Physical Exam
Physical Exam
HEENT: Moist mucous membranes and Other (jaundice )
Cardiology: Normal Sinus Rhythm
Pulmonary: Clear
GI: Soft, Non Distended, Non Tender and Other (peg tube intact )
Extremities: No Edema
Neuro: Other (non verbal in exam - some clenching of teeth- which is chronic )
[2024-10-11] MEDS: OMNIPAQUE 50 ML PO (13:55)
[2024-10-11 15:25] VITALS: BP 106/65
--- NOTE | 2024-10-11 16:17 | CM ---
Reviewed the chart notes. Patient had HIDA scan today. continues to be available to patient/family and is monitoring medical plan for needs at discharge.
Plan: Discharge to home with [facility] services.
[facility]
[2024-10-11 18:32] LABS: ALT (SGPT) 725 U/L (0-35); Albumin 2.4 g/dl (3.5-5.0); Alkaline Phosphatase 146 U/L (38-126); Blood Urea Nitrogen 23 mg/dl (7-17); Calcium 8.7 mg/dl (8.4-10.2); Carbon Dioxide 24 mmol/L (22-30); Chloride 109 mmol/L (98-107); Estimated Creatinine Clearance 73 ml/min; Glucose 77 mg/dl (70-99); Potassium 4.2 mmol/L (3.5-5.1); Sodium 138 mmol/L (135-145); Total Bilirubin 7.5 mg/dl (0.2-1.3); Total Protein 5.8 g/dl (6.3-8.2); eGFR > 60.00
[2024-10-11 18:48] LABS: AST (SGOT) 1316 U/L (14-36)
[2024-10-11] MEDS: LOVENOX 40 MG SC (18:54)
[2024-10-11 19:25] VITALS: BP 114/65
--- NOTE | 2024-10-11 21:13 | PTCARENOTE ---
Pt completed and tolerated well contrast via PEG and sent to CT via stretcher Abd/pelv Ct.
--- NOTE | 2024-10-11 21:55 | PTCARENOTE ---
TF/Jevity 1.5 restarted at 45ml/hr with 25/hr flush after pt returned from CT scan. Tolerating well. Minimal drainage noted around PEG site.
[2024-10-11 23:52] VITALS: BP 91/52
[2024-10-12 03:36] VITALS: BP 89/49
[2024-10-12] MEDS: MAXIPIME 2000 MG IV ×3 (04:52→19:50)
[2024-10-12] MEDS: STERILE WATER FOR INJECTION 10 ML IV ×3 (04:52→19:50)
[2024-10-12] MEDS: FLAGYL 500 MG 100 IV (04:53)
[2024-10-12] MEDS: ProAmatine 15 MG TUBE ×2 (04:54→17:30)
[2024-10-12] MEDS: NSS 500 IV (05:11)
[2024-10-12 05:48] LABS: Hematocrit 33.5 % (37.0-47.0); Hemoglobin 11.2 g/dL (12.0-16.0); Mean Corp Hgb Conc. 33.4 g/dL (33.0-37.0); Mean Corpuscular Hgb 31.4 pg (27.0-31.0); Mean Corpuscular Volume 93.8 fL (81.0-99.0); Platelet Count 118 10^3/uL (130-400); Red Blood Cell Count 3.57 10^6/uL (4.20-5.40); Red Cell Dist. Width 15.9 % (11.5-14.5); White Blood Cell Count 4.3 10^3/uL (4.8-10.8)
[2024-10-12 05:55] LABS: INR 2.52; PT 27.6 Sec (11.4-14.6)
[2024-10-12 06:13] LABS: ALT (SGPT) 699 U/L (0-35); Alkaline Phosphatase 128 U/L (38-126); Blood Urea Nitrogen 21 mg/dl (7-17); Calcium 8.4 mg/dl (8.4-10.2); Carbon Dioxide 24 mmol/L (22-30); Chloride 108 mmol/L (98-107); Estimated Creatinine Clearance 86 ml/min; Glucose 125 mg/dl (70-99); Potassium 3.9 mmol/L (3.5-5.1); Sodium 138 mmol/L (135-145); Total Bilirubin 6.7 mg/dl (0.2-1.3); Total Protein 5.1 g/dl (6.3-8.2); eGFR > 60.00
[2024-10-12 06:22] LABS: AST (SGOT) 1187 U/L (14-36)
[2024-10-12 07:20] VITALS: BP 94/58
--- NOTE | 2024-10-12 08:07 | W.PN.HOSP.TC ---
Today's Communication/Plan
-
Acetylcysteine to be given concern for acute liver failure
Continue Cefepime but stop Flagyl since not concerned about biliary source of infection, as per GI
GI is in contact with hepatology at [facility] -- no transfer at this time
Assessment / Plan
Assessment / Plan
Physical Exam
General: No Apparent Distress
Respiratory: Non Labored Respirations; Negative Wheezes (anteriorly) or Accessory Resp Muscle Use
Cardiac: Regular Rhythm and S1/S2
GI: Soft, Positive Bowel Sounds and Peg Tube
Neuro: Sleeping
Psych: Calm
Assessment/Plan
48 F with cerebral palsy and frequent aspiration events now s/p PEG comes in with PEG malfunction where feeding was leaking from around PEG site. No vomiting. No diarrhea. Has been having regular bms. Found to have a UTI. Abdominal xray without
airfluid levels to suggest obstruction. Possible delayed emptying, ileus.
Tube feeding leakage likely secondary to severe constipation
- At home on (On Compleat 1.5 45ml/hr with 50 ml/hr water flush for 16 hours daily) .
- CW tube feeding which she seems to tolerance .
- GI following.
- Tube study was performed and Contrast instilled through the patient's indwelling PEG tube outlines the stomach and proximal small bowel, confirming placement.
Constipation
-Recommended to continue with Colace, senna and increase MiraLAX to twice daily.
-Also will need additional medication regimen prn .
-s/p Enema.
-AXR with improvement in stool burden .
-With possible ileus on CT imaging, consulted surgery
Nonspecific pulmonary parenchymal opacity on CT Abdomen Pelvis
-Consulted cardio who said no need for Diuretics (which patient could not tolerate anyway due to her hypotension), they mentioned based on chart review no need for cardiology consult at this time
-Can consider echocardiogram and/or CXR
-Consulted pulm who mentioned opacities on chest imaging are chronic, they will come and go with aspiration
-Check CXR in the morning
Abnormal LFTs acute cholecystic hepatitis picture noted with elevated bilirubin and transaminitis.
Concern for Acute Liver Failure
Persistent Elevated LFTs
-I spoke on 10/12/[address] [employer] [address] Anand (hog worker) who mentioned she is doing a full liver workup and she will talking with hepatology
-No prior history of biliary disease according to the father
-Per Dr. Anand, no need for Flagyl cover for since biliary is not the source
-N acetylcysteine, as per gastroenterology
Pseudomonas UTI
-Follow-up on the susceptibility results. cw cefepime -- start date appears to be 10/08/24
Chronic hypotension
- Mostly of the systolics are in 90s at home too per
- cw midodrine
Seizure d/o
- continue clobazam and oxcarbazepine
Cerebral palsy with functional quadriplegia
Chronic dysphagia status post PEG tube
Chronic hypotension with midodrine
History of ovarian cancer status post surgery
DVT PPX - lovenox sq
Code status - full code
d/w with patient father and brother at bedside.
Total time spent on today's encounter was 55 minutes which included time spent in seeing and examining the patient, counseling the patient/family regarding diagnosis and treatment plan as listed above and documentation. Case was discussed with
nursing staff, specialists. Chart reviewed.
Anticipated Discharge: > 48 hours
Subjective/Interval History
-
Date of Service: October 12, 2024
Patient was seen and examined. She appeared to be sleeping comfortably. Patient's family was present in the room at the time of the patient encounter.
Objective Data
-
Labs:
Laboratory Results
10/12/24 10/12/24
05:20 05:21
WBC 4.3 L
Hgb 11.2 L
Hct 33.5 L
Plt Count 118 L
PT 27.6 H
INR 2.52
Sodium 138
Potassium 3.9
Chloride 108 H
Carbon Dioxide 24
BUN 21 H
Creatinine 0.6
Glucose 125 H
Calcium 8.4
Total Bilirubin 6.7 H
AST 1187 H*
ALT 699 H*
Alkaline Phosphatase 128 H
Vital Signs:
Vital Signs
Temp Pulse Resp BP Pulse Ox
97.8 F 64 14 80/40 96
10/12/24 03:36 10/12/24 03:36 10/12/24 03:36 10/12/24 04:54 10/12/24 03:36
I&O
10/11/24 10/12/24 10/13/24
06:59 06:59 06:59
Intake Total 1091 / 1091 2935 / 2935
Balance 1091 / 1091 2935 / 2935
[2024-10-12] MEDS: MIRALAX TUBE ×2 (08:13→19:50)
[2024-10-12] MEDS: SENNA SYRUP TUBE ×2 (08:13→19:50)
[2024-10-12] MEDS: SINGULAIR 10 MG TUBE (08:14)
[2024-10-12] MEDS: ONFI 10 MG TUBE ×2 (08:14→19:50)
[2024-10-12] MEDS: TRILEPTAL 600 MG TUBE ×2 (08:14→19:50)
[2024-10-12] MEDS: ERYTHROMYCIN 0.5% OPHTHALMIC OINTMENT 1 APPLIC OPHTH ×4 (08:17→21:30)
[2024-10-12] MEDS: DESENEX/MITRAZOL/ZEASORB 1 APPLIC TOPICAL ×2 (08:18→19:51)
--- NOTE | 2024-10-12 10:20 | CON.PUL ---
Consultation
Consultation Request
Date/Time Consultation Requested: 10/12/24
Date/Time Consultation Performed: 10/12/24
Performing Provider: Damián
Reason for Consultation: Abnormal imaging
Medical History
-
History of Present Illness:
Patient is a 48-year-old female with previous history of cerebral palsy, seizures, functional quadriplegia, nonverbal at baseline, recurrent aspiration status post PEG placement presenting to ER from home with concern for PEG tube malfunction.
She is admitted on 10/07/2024 undergoing workup for abnormal liver enzymes as well. She had a CT abdomen pelvis which indicates small groundglass opacities in the basilar portion of the lung. She has a history of abnormal chest imaging due to
chronic aspiration.
Mother is at bedside and notes no worsening in her respiratory condition from baseline.
Past Medical History
Past Medical History: Other (see list below)
Past Surgical History: None
Social History
Tobacco: Non-smoker
Alcohol: None
Drug: None
Allergies / Home Medications
Allergies
Allergy/AdvReac Type Severity Reaction Status Date / Time
brompheniramine Allergy hyper Verified 10/06/24 21:11
[From Dimetapp Cold-Allergy
(PE)]
cephalexin [From Keflex] Allergy Unknown Verified 10/06/24 21:11
chloral hydrate Allergy hyper Verified 10/06/24 21:11
diphenhydramine Allergy hyper Verified 10/06/24 21:11
[From Benadryl]
latex Allergy Swelling Verified 10/06/24 21:11
levofloxacin Allergy Unknown Verified 10/06/24 21:11
phenobarbital Allergy hyper Verified 10/06/24 21:11
phenylephrine Allergy hyper Verified 10/06/24 21:11
[From Dimetapp Cold-Allergy
(PE)]
phenytoin [From Dilantin] Allergy Rash Verified 10/06/24 21:11
Sulfa (Sulfonamide Allergy Hives Verified 10/06/24 21:11
Antibiotics)
topiramate [From Topamax] Allergy Rash Verified 10/06/24 21:11
Home Medications
�Medication �Instructions �Recorded �Confirmed �Last Taken �Type
fluticasone propionate 50 2 spray intranasal HS Allergies 03/17/24 10/07/24 03/23/24 History
mcg/actuation nasal
spray,suspension
clobazam 10 mg tablet 10 mg feeding tube BID #60 tabs 04/21/24 10/07/24 Unknown Rx
oxcarbazepine 300 mg tablet 600 mg (2 x 300 mg) feeding tube 04/21/24 10/07/24 Unknown Rx
BID #120 tabs
polyethylene glycol 3350 17 gram 17 g feeding tube DAILYPRN PRN 04/21/24 10/07/24 Unknown Rx
oral powder packet (HealthyLax) constipation #100 ea
Probiotic 1 cap feeding tube DAILY 06/12/24 10/07/24 Unknown History
ascorbic acid (vitamin C) 500 mg 500 mg feeding tube HS Supplement 06/12/24 10/07/24 Unknown History
tablet (Vitamin C)
docusate sodium 50 mg/5 mL oral 50 mg feeding tube BID Constipation 06/12/24 10/07/24 Unknown History
liquid
midodrine 5 mg tablet 15 mg feeding tube BID 06/12/24 10/07/24 Unknown History
montelukast 10 mg tablet 10 mg feeding tube DAILY 06/12/24 10/07/24 Unknown History
Lung/Breathing Issues
sennosides 8.8 mg/5 mL oral syrup 8.8 mg feeding tube DAILY 06/12/24 10/07/24 Unknown History
Constipation
Review of Systems
-
History Source: Patient
All other systems: Negative unless noted
Vitals / Labs / Diagnostic Testing
Vital Signs
Temp Pulse Resp BP Pulse Ox
97.6 F 70 16 94/58 97
10/12/24 07:20 10/12/24 07:20 10/12/24 07:20 10/12/24 07:20 10/12/24 07:20
Lab Data
10/12/24 05:21
10/12/24 05:20
Laboratory Results
10/12/24
05:21
PT 27.6 H
INR 2.52
Microbiology
10/06/24 23:54 Urine Urine Culture - Final
Pseudomonas aeruginosa
Diagnostic Testing:
Physical Exam
-
HEENT: Normocephalic, Anicteric and Moist Mucous Membranes
Cardiovascular: S1/S2 and Regular Rhythm
Respiratory: Rhonchi and Non-Labored Respirations
GI: Soft, Non Distended and Non Tender
Neurology: Awake, Alert, Oriented and No Motor Deficits
Skin: Warm, Dry and Good Color
General: Comfortable and Other (NAD)
Assessment
-
Patient is a 48-year-old female with previous history of cerebral palsy, seizures, functional quadriplegia, nonverbal at baseline, recurrent aspiration status post PEG placement presenting to ER from home with concern for PEG tube malfunction.
She is admitted on 10/07/2024 undergoing workup for abnormal liver enzymes as well. She had a CT abdomen pelvis which indicates small groundglass opacities in the basilar portion of the lung. She has a history of abnormal chest imaging due to
chronic aspiration.
Recurrent aspiration
Chronic abnormal chest imaging, GGOs
Chronic hypoxic respiratory failure on nasal cannula, 2L (baseline)
PEG malfunction
Elevated LFTs
Conditions present prior to admission
Chronic dysphagia status post PEG
Recurrent aspiration pneumonia
Cerebral palsy with functional quadriplegia
Nonverbal
Seizure disorder
Esophageal web
Hypertension
Ovarian cancer status post total abdominal hysterectomy and oophorectomy
Vagus nerve stimulator implant
Appendectomy
Plan
Chronic hypoxemia -- on 2L satting >%
Trial off/wean as tolerated
Prior history of lung disease is noted including recurrent aspiration PNAs
Extensive CP/neurologic history
CXR/CT obtained indicating bilateral patchy opacities, more compared with prior but changing
This is typical with aspiration, opacities may come and go
CT in past showing bilateral opacities as well
The abnormalities/GGOs on chest imaging are chronic.
Repeat CXR in AM to re-eval
Speech therapy eval in past and this admission reviewed--
Prior VSE 04/14/24- Deep penetration of thin liquids with no aspiration noted. Patient presents with moderate oral dysphagia and mild pharyngeal dysphagia, similar to recent study.
Supraglottic penetration (PAS 3) noted with thin liquids via consecutive straw sips.
Eval 06/13/24- Patient exhibits clinical signs of oropharyngeal dysphagia, likely chronic related to Cerebral Palsy and acutely exacerbated by aspiration pneumonia.
Patient remains at high for aspiration and related complications given current tenuous pulmonary status, lethargy, decreased mobility at baseline, and poor oral hygiene.
Patient also is at high risk for post-prandial aspiration given esophageal web and PEG tube feedings, with patient's father reporting 2-3 episodes of regurgitation of tube feedings 2 weeks ago.
At this time, recommending NPO with PEG tube for all nutrition/medication/hydration, as patient appears with more severe oropharyngeal dysphagia than during last admission due to acuity of illness at this time.
Suspect when patient improves medically, pt may be able to safely tolerate puree textures and Mildly-thick liquids for pleasure
Family then refused further speech eval
Prior ECHO results are reviewed indicating normal function
Monitor intake/outputs, daily weights
Currently not on antibiotics
Would observe off
Airway clearance measures are limited due to patient's cognitive function
I am not sure there is any good recommendations in this situation
Palliative care would certainly be warranted
We will follow
Diagnostic Data
Chest X-Ray: 06/15/24- Airspace opacities in the left midlung suspicious for pneumonia. Right lung is grossly clear.
06/12/24- 1. Moderate-sized airspace opacities in the right mid/lower lung and in the left lower lobe suspicious for bilateral pneumonia.
2. Severe bowing deformities of both humeral diaphyses which appear unchanged.
04/12/24- No acute disease of the chest. No definitive pneumonia on this plain film examination.
CT Scan: CHEST 03/17/24- Bilateral pneumonia. Large amount of stool in the colon consistent with constipation.
Multiple bilateral hypodense lesions in the kidneys consistent with cysts. Mild caliectasis in the right kidney.
Diffuse urinary bladder wall thickening consistent with the history of UTI.
Echo: 04/11/24-Normal LV size and function with no regional wall motion abnormalities. LVEF is 55 to 60% by visual estimation. Normal diastolic function. Normal right ventricular size and function. No significant valvular disease.
No prior study available for comparison.
PFT's:
Reports and relevant images were personally reviewed.
Total time spent on this consultation __75__ includes review of history, physical exam, medications, laboratory data, personal review of imaging, extensive review of outpatient records, discussion with care team and respiratory therapy.
--- NOTE | 2024-10-12 11:35 | W.PN.GI.CBS2 ---
Addendum entered and electronically signed by Emma Anand MD 10/12/24 16:45:
vit k given sq because poor iv access and pt cannot take po
ammonia and lactic acid normal reassuring
Original Note:
Today's Communication / Plan
-
NAC drip, liver labs, vit K
Assessment / Plan
-
Ms Orantes is a 48yo W with h/o cerebral palsy and remote ovarian cancer stage 3 who initially presented with constipation and PEG leakage. Found to have abnormal LFTs and today first day INR checked and was elevated - concerning for acute liver
failure. Having intermittent hypotension as well (as low as systolic BP in 70-80s).
Admitted 10/07 - liver labs checked 10/08:
AST 1062 (10/08) --> 1316 (10/11)--> 1187 (10/12)
ALT 729 (10/08) --> 725 (10/11) --> 699 (10/12)
TB 5.2 (10/08) --> 7.5 (10/11) --> 6.7 (10/12)
INR only checked today 10/12 --> 2.5
LFTs previously were normal 07/19/24
INR normal 03/17/24
MELD 10/12 calculated -
Work up so far:
Liver labs:
Hep A IgM pending
No liver work up done during this admission was all done in April 2024 (had AST/ALT in 150s)
Imaging:
10/09 US doppler
Normal ultrasound evaluation of the abdominal vasculature.
Limited visualization of the liver secondary to positioning and requiring intercostal imaging. Normal in size.
No gallstones, though there is generalized gallbladder wall thickening measuring up to 5.1 mm. Uncertain etiology.
No bile duct dilatation.
No obstructive uropathy. Renal cysts.
10/11 NM Hepatobiliary (hida)
Impression: No scintigraphic evidence of cystic duct obstruction.
Nonvisualization of activity in the small bowel and vicarious excretion of activity most likely related to elevated serum bilirubin and not biliary tract obstruction.
10/11 CT:
Nonspecific pulmonary parenchymal opacity; consider edema from volume overload or congestive heart failure, diffuse pneumonia, or nonspecific alveolitis.
Moderate gallbladder distention. Top normal gallbladder wall thickness. Mild gallbladder wall edema suggested. No bile duct dilatation.
Nonobstructing renal calculi. Renal cysts.
Predominantly liquid stool throughout the colon with mild distention and scattered air-fluid levels. Recommend correlation with history of diarrhea.
Mild distention without gross dilatation of proximal small bowel loops, with a few air-contrast levels. More distal small bowel appears relatively collapsed, containing enteric contrast material. No definitive transition is identified to suggest
small bowel obstruction. Possible proximal small bowel ileus. However, depending on clinical concern, follow-up small bowel study may be considered if there is significant clinical concern for the possibility of a small bowel obstruction.
Percutaneous gastrostomy tube in place. No abdominal wall collection or hernia.
Impression - With elevated INR, abnormal LFTs, I am concerned about acute liver failure
Recommendations:
- Acute liver failure work up ordered (autoimmune, hepatitis, Pillo's, A1AT, herediatry hemochromatosis, tylenol, CMV, EBV, HSV)
- I d/w liver transplant at [facility] and also added on ammonia/lactic acid - if these are high she would need to be transferred now as we cannot assess her mental status. I d/w family re: transfer they are agreeable if needed.
- Starting N-acetylcysteine drip per INTERMEDIATE protocol
- D/w liver transplant I also ordered Vit K - could have malnutrition driving the INR
- Daily MELD labs
- No role for flagyl from GI POV as this is not biliary; continue cefipime for UTI
- I d/w Dr. Liu patient does NOT have symptoms of small bowel obstruction and he reviewed films personally. Questionable sigmoid narrowing can consider gastrografin enema but would hold off for now as having BMs.
I d/w family no new meds outpatient. Hypotension chronic x 1 year but usually systolic 80s more so than 70s. FH psoriasis in mother, no other FH of autoimmune or liver issues.
I d/w family at length; also d/w hospitalist Dr. Doe, surgeon Dr. Liu, liver transplant [facility] Dr. Jacinto, nurse Samantha Cadena
Spent >60 min on coordination of care and time with patient
Total Time Spent with Patient (in minutes): 60
Subjective
Subjective
Date of Service: October 12, 2024
Multiple loose BM/past like stools overnight and this am so senna and miralax held
Pt bolused with 500 mL fluids with BP in 90s
Objective
Data Reviewed
Laboratory Data:
Laboratory Results
10/12/24 05:21
10/12/24 05:20
Laboratory Results
PT 27.6 Sec (11.4-14.6) H 10/12/24 05:21
INR 2.52 10/12/24 05:21
Total Bilirubin 6.7 mg/dl (0.2-1.3) H 10/12/24 05:20
AST 1187 U/L (14-36) H* 10/12/24 05:20
ALT 699 U/L (0-35) H* 10/12/24 05:20
Alkaline Phosphatase 128 U/L (38-126) H 10/12/24 05:20
Lipase 113 U/L (23-300) 10/09/24 08:25
Vital Signs and I&O:
Vital Signs
Temp Pulse Resp BP Pulse Ox
97.6 F 70 16 94/58 97
10/12/24 07:20 10/12/24 07:20 10/12/24 07:20 10/12/24 07:20 10/12/24 07:20
I&O
11/27/24 11/28/24 11/29/24
06:59 06:59 06:59
Intake Total 1091 / 1091 2935 / 2935
Balance 1091 / 1091 2935 / 2935
[2024-10-12 12:00] VITALS: BP 96/60
--- NOTE | 2024-10-12 12:45 | CON.GS ---
Consultation
-
Reason for Consultation: CT scan reading of possible small bowel obstruction
Medical History
-
Chief Complaint: G-tube leakage and constipation
History of Present Illness:
Patient is a 48-year-old female with history of CP, previous history of ovarian cancer status post LUCERO/BSO admitted 10/07/2024 secondary to history of acute on chronic constipation and PEG tube leakage. Patient's parents at bedside to assist with
providing history.
They report a typical pattern of intermittent constipation with a regular bowel regiment that includes MiraLAX, senna, Colace and enemas as needed with typical bowel movements every 1 to 3 days. After no bowel movement for 3 days at home despite an
aggressive bowel regimen and taking note of some leakage around her PEG tube site she was brought to the emergency department for evaluation. A bowel regimen has since been initiated with results and continued bowel movements overnight. She is
back on tube feeds and tolerating them.
General Surgery consultation is requested today due to CT imaging radiologist report mentioning possibility of small bowel ileus versus small bowel obstruction. CT imaging was ordered due to elevated LFTs not out of concern for underlying bowel
pathology. Patient had been tolerating tube feeds at goal.
Other than chronic intermittent constipation the patient's family reports no previous history of small bowel obstructions.
Past Medical History
Past Medical History: Other (Previous history of ovarian cancer, epilepsy, cerebral palsy)
Past Surgical History: Other (Appendectomy, LUCERO/BSO, vagus nerve stimulator implant)
Social History
Living: With Family
Allergies / Home Medications
Allergy/AdvReac Type Severity Reaction Status Date / Time
brompheniramine Allergy hyper Verified 10/06/24 21:11
[From Dimetapp Cold-Allergy
(PE)]
cephalexin [From Keflex] Allergy Unknown Verified 10/06/24 21:11
chloral hydrate Allergy hyper Verified 10/06/24 21:11
diphenhydramine Allergy hyper Verified 10/06/24 21:11
[From Benadryl]
latex Allergy Swelling Verified 10/06/24 21:11
levofloxacin Allergy Unknown Verified 10/06/24 21:11
phenobarbital Allergy hyper Verified 10/06/24 21:11
phenylephrine Allergy hyper Verified 10/06/24 21:11
[From Dimetapp Cold-Allergy
(PE)]
phenytoin [From Dilantin] Allergy Rash Verified 10/06/24 21:11
Sulfa (Sulfonamide Allergy Hives Verified 10/06/24 21:11
Antibiotics)
topiramate [From Topamax] Allergy Rash Verified 10/06/24 21:11
�Medication �Instructions �Recorded �Confirmed �Type
fluticasone propionate 50 2 spray intranasal HS Allergies 03/17/24 10/07/24 History
mcg/actuation nasal
spray,suspension
clobazam 10 mg tablet 10 mg feeding tube BID #60 tabs 04/21/24 10/07/24 Rx
oxcarbazepine 300 mg tablet 600 mg (2 x 300 mg) feeding tube 04/21/24 10/07/24 Rx
BID #120 tabs
polyethylene glycol 3350 17 gram 17 g feeding tube DAILYPRN PRN 04/21/24 10/07/24 Rx
oral powder packet (HealthyLax) constipation #100 ea
Probiotic 1 cap feeding tube DAILY 06/12/24 10/07/24 History
ascorbic acid (vitamin C) 500 mg 500 mg feeding tube HS Supplement 06/12/24 10/07/24 History
tablet (Vitamin C)
docusate sodium 50 mg/5 mL oral 50 mg feeding tube BID Constipation 06/12/24 10/07/24 History
liquid
midodrine 5 mg tablet 15 mg feeding tube BID 06/12/24 10/07/24 History
montelukast 10 mg tablet 10 mg feeding tube DAILY 06/12/24 10/07/24 History
Lung/Breathing Issues
sennosides 8.8 mg/5 mL oral syrup 8.8 mg feeding tube DAILY 06/12/24 10/07/24 History
Constipation
Review of Systems
-
Unable to obtain full review of systems at this time due to: Patient Non Verbal
History Source: Family
All other systems: Negative unless noted
A 10 point review of systems was completed, and was negative except as per HPI.
Physical Exam
Vital Signs
Temp Pulse Resp BP Pulse Ox
97.9 F 72 17 96/60 99
10/12/24 12:00 10/12/24 12:00 10/12/24 12:00 10/12/24 12:00 10/12/24 12:00
Body Mass Index (BMI) 27.6
Lab Results
10/12/24 05:21
WBC 4.3 10^3/uL (4.8-10.8) L 10/12/24 05:21
Hgb 11.2 g/dL (12.0-16.0) L 10/12/24 05:21
Hct 33.5 % (37.0-47.0) L 10/12/24 05:21
Plt Count 118 10^3/uL (130-400) L 10/12/24 05:21
Abs Immat Gran (auto) Cancelled 10/10/24 06:00
Neutrophils % Cancelled 10/10/24 06:00
Physical Exam
General: No Apparent Distress and Other
Respiratory: Non Labored Respirations
GI: Soft, Non Tender, Non Distended and Other (Left-sided G-tube in place without leakage or drainage)
Psych: Calm
Data Reviewed
-
CT Scan: Image Personally Visualized and interpreted, Report Reviewed by me, Discussed with Physician and Discussed with Family
Assessment / Plan
-
Assessment: 48-year-old female initially admitted with leaking PEG tube and constipation which has been alleviated by bowel regiment with tolerance of tube feeding and also found to have acute elevation of LFTs (AST, ALT, alkaline phosphatase and
bilirubin) as well as coagulopathy with elevated PT/INR.
With regards to the possibility of a small bowel obstruction there is no transition point seen on CT imaging which I personally reviewed and interpreted. The oral contrast administered for the study progressed through the entire small bowel and is
seen even throughout portions of the transverse colon. Fluid-filled descending sigmoid colon and rectum. No small bowel transition point. Mildly dilated loops of small bowel. No pneumatosis, no mesenteric or portal venous gas. No free air.
There are no clinical nor radiographic signs suggestive of a mechanical small bowel obstruction. Mildly dilated small bowel may be reflective of recent constipation or slight ileus in setting of acute medical illness with elevated LFTs but there
are no clinical signs of ileus either as patient is tolerating tube feeding at goal, without residuals and with bowel function.
Reviewing further testing with regards to elevated LFTs -> hida with visualized gallbladder but duodenum did not opacify (limited study likely in setting of elevated LFTs as well), ultrasound with no gallstones, mild wall thickening, no biliary
ductal dilation; CT imaging with some enhancement of gallbladder wall but no significant signs of cholecystitis and there are no clinical signs of acute cholecystitis either.
Plan: Continue GI follow-up and evaluation of LFTs
Continue tube feeds and bowel regiment
In discussions with patient's parents she has never had colonoscopy, just Cologuard which has been negative.
At a future date/or as outpatient would potentially consider Gastrografin enema contrast imaging of the colon just to ensure there is no underlying mechanical causes to her long-term constipation
Signing off
Please call if can be of further assistance with patient's care.
[2024-10-12] MEDS: FLAGYL 500 MG IV (13:11)
[2024-10-12] MEDS: ACETADOTE 243.3 MG IV (14:08)
[2024-10-12] MEDS: AQUAMEPHYTON 10 MG SC (14:14)
[2024-10-12 14:38] LABS: Ammonia 18 umol/L (9-30); INR 2.45; Lactic Acid 1.5 mmol/L (0.7-2.0)
[2024-10-12 14:51] LABS: ALT (SGPT) 721 U/L (0-35); AST (SGOT) 1218 U/L (14-36); Acetaminophen < 10 ug/ml (10-30); Albumin 2.2 g/dl (3.5-5.0); Alkaline Phosphatase 136 U/L (38-126); Blood Urea Nitrogen 20 mg/dl (7-17); Calcium 8.4 mg/dl (8.4-10.2); Carbon Dioxide 24 mmol/L (22-30); Chloride 109 mmol/L (98-107); Direct Bilirubin 5.7 mg/dl (0.0-0.4); Estimated Creatinine Clearance 73 ml/min; Glucose 146 mg/dl (70-99); Iron 156 ug/dl (37-170); Percent Saturation 69 % (20-50); Potassium 3.9 mmol/L (3.5-5.1); Sodium 138 mmol/L (135-145); Total Bilirubin 6.5 mg/dl (0.2-1.3); Total Iron Binding Capacity 224 ug/dl (265-497); Total Protein 5.5 g/dl (6.3-8.2); eGFR > 60.00
[2024-10-12] MEDS: ACETADOTE 514.4 MG IV (15:20)
[2024-10-12 15:27] VITALS: BP 98/60
[2024-10-12] MEDS: LOVENOX 40 MG SC (17:30)
[2024-10-12 17:46] LABS: COVID-19 Antigen Negative (Negative)
[2024-10-12 19:17] VITALS: BP 117/69
[2024-10-12] MEDS: ACETADOTE 1040.4 MG IV (19:35)
[2024-10-12 20:03] LABS: Hepatitis B Surface Antigen Negative (Negative)
[2024-10-12 20:17] LABS: IgG 1702 mg/dl (700-1600); IgM 71 mg/dl (40-230)
[2024-10-12 20:22] LABS: Hepatitis B Core Ab, Total Negative (Negative); Hepatitis B Surface Antibody Negative; Hepatitis C Antibody Negative (Negative)
[2024-10-12 21:23] LABS: IgA 271 mg/dl (70-400)
[2024-10-12 23:28] VITALS: BP 95/54
[2024-10-13 03:16] VITALS: BP 96/45
[2024-10-13] MEDS: MAXIPIME 2000 MG IV (03:49)
[2024-10-13] MEDS: STERILE WATER FOR INJECTION 10 ML IV (03:49)
[2024-10-13 04:50] LABS: INR 2.31; PT 25.9 Sec (11.4-14.6)
[2024-10-13 04:52] LABS: Hematocrit 35.3 % (37.0-47.0); Hemoglobin 11.7 g/dL (12.0-16.0); Mean Corp Hgb Conc. 33.1 g/dL (33.0-37.0); Mean Corpuscular Volume 93.6 fL (81.0-99.0); Mean Platelet Volume 12.7 fL (7.4-10.4); Platelet Count 126 10^3/uL (130-400); Red Blood Cell Count 3.77 10^6/uL (4.20-5.40); Red Cell Dist. Width 15.8 % (11.5-14.5); White Blood Cell Count 6.4 10^3/uL (4.8-10.8)
[2024-10-13 05:18] LABS: ALT (SGPT) 641 U/L (0-35); AST (SGOT) 1008 U/L (14-36); Albumin 2.1 g/dl (3.5-5.0); Alkaline Phosphatase 108 U/L (38-126); Blood Urea Nitrogen 20 mg/dl (7-17); Calcium 8.3 mg/dl (8.4-10.2); Carbon Dioxide 23 mmol/L (22-30); Chloride 109 mmol/L (98-107); Direct Bilirubin 5.6 mg/dl (0.0-0.4); Estimated Creatinine Clearance 86 ml/min; Glucose 127 mg/dl (70-99); Potassium 3.5 mmol/L (3.5-5.1); Sodium 138 mmol/L (135-145); Total Bilirubin 6.4 mg/dl (0.2-1.3); Total Protein 5.3 g/dl (6.3-8.2); eGFR > 60.00
[2024-10-13 06:13] LABS: Band Neutrophils 10 % (0-3); Eosinophils 8 % (0-6); Lymphocytes 19 % (20-51); Monocytes 25 % (2-9); Normal RBC Morphology Yes; Platelets Checked Yes; Segmented Neutrophils 38 % (42-75); Total Cells Counted 100
[2024-10-13 07:25] VITALS: BP 92/56
[2024-10-13] MEDS: DESENEX/MITRAZOL/ZEASORB 1 APPLIC TOPICAL ×2 (09:19→19:42)
[2024-10-13] MEDS: ERYTHROMYCIN 0.5% OPHTHALMIC OINTMENT 1 APPLIC OPHTH ×4 (09:20→21:15)
[2024-10-13] MEDS: ProAmatine 15 MG TUBE ×2 (09:21→17:32)
[2024-10-13] MEDS: SENNA SYRUP 8.8 MG TUBE (09:21)
[2024-10-13] MEDS: TRILEPTAL 600 MG TUBE ×2 (09:22→19:39)
[2024-10-13] MEDS: SINGULAIR 10 MG TUBE (09:22)
[2024-10-13] MEDS: ONFI 10 MG TUBE ×2 (09:23→19:39)
[2024-10-13] MEDS: MIRALAX 17 GRAMS TUBE ×2 (09:23→19:39)
--- NOTE | 2024-10-13 10:06 | W.PN.HOSP.TC ---
Today's Communication/Plan
-
Continue Acetylcysteine as per GI
LFTs slightly better today
Ammonia and lactic acid were normal
Appreciate pulm
Assessment / Plan
Assessment / Plan
Physical Exam
General: No Apparent Distress
Respiratory: Rhonchi bilaterally
Cardiac: Regular Rhythm and S1/S2
GI: Soft, Positive Bowel Sounds and Peg Tube
Neuro: Sleeping, but opens eyes to calling her name
Psych: Calm
Assessment/Plan
48 F with cerebral palsy and frequent aspiration events now s/p PEG comes in with PEG malfunction where feeding was leaking from around PEG site. No vomiting. No diarrhea. Has been having regular bms. Found to have a UTI. Abdominal xray without
airfluid levels to suggest obstruction. Possible delayed emptying, ileus.
Tube feeding leakage likely secondary to severe constipation
- At home on (On Compleat 1.5 45ml/hr with 50 ml/hr water flush for 16 hours daily) .
- CW tube feeding which she seems to tolerance .
- GI following.
- Tube study was performed and Contrast instilled through the patient's indwelling PEG tube outlines the stomach and proximal small bowel, confirming placement.
Constipation
-Recommended to continue with Colace, senna and increase MiraLAX to twice daily.
-Also will need additional medication regimen prn .
-s/p Enema.
-AXR with improvement in stool burden .
-With possible ileus on CT imaging, consulted surgery: per surgery team, patient does NOT have symptoms of small bowel obstruction and surgeon reviewed films personally -- there is questionable sigmoid narrowing; can consider Gastrograffin enema but
would hold off for now as patient has been having bowel movements
Nonspecific pulmonary parenchymal opacity on CT Abdomen Pelvis
-Consulted cardio who said no need for Diuretics (which patient could not tolerate anyway due to her hypotension), they mentioned based on chart review no need for cardiology consult at this time
-Can consider echocardiogram and/or CXR
-Consulted pulm who mentioned opacities on chest imaging are chronic, they will come and go with aspiration
-CXR on 10/13/24: as per radiologist's report, showed: 'Low lung volumes with diffuse interstitial opacification and bibasilar opacities which may represent multifocal pneumonia or mild edema/atelectasis.'
Abnormal LFTs acute cholecystic hepatitis picture noted with elevated bilirubin and transaminitis.
Concern for Acute Liver Failure
Persistent Elevated LFTs
High INR
-Acute liver failure workup as per GI (autoimmune, hepatitis, Pillo's, A1AT, herediatry hemochromatosis, tylenol, CMV, EBV, HSV)
-I spoke on 10/12/[address] [facility] [employer] with Dr. Anand (right of way supervisor) who mentioned she is doing a full liver workup and Dr[facility]
-No prior history of biliary disease according to the father
-Per Dr. Anand, no need for Flagyl cover for since biliary is not the source
-Ammonia and lactic acid are normal, which is reassuring (if these were high, she would need to be transferred emergently)
-Continue N-acetylcysteine drip per [facility] protocol, as per gastroenterology
-Vitamin K was ordered (besides liver, malnutrition could be increasing the INR) -- subq was ordered because poor iv access and pt cannot take po
Pseudomonas UTI
-Followed-up on the susceptibility results.
-Received Cefepime for ~5 days (start date was 10/08/24)
Chronic hypotension
- Mostly of the systolics are in 90s at home too per patient's father
- Continue with midodrine
Seizure d/o
- continue clobazam and oxcarbazepine
Cerebral palsy with functional quadriplegia
Chronic dysphagia status post PEG tube
Chronic hypotension with midodrine
History of ovarian cancer status post surgery
DVT PPX - lovenox sq
Code status - full code
d/w with patient father
Total time spent on today's encounter was 53 minutes which included time spent in seeing and examining the patient, counseling the patient/family regarding diagnosis and treatment plan as listed above and documentation. Case was discussed with
nursing staff. Chart reviewed.
Anticipated Discharge: > 48 hours
Subjective/Interval History
-
Date of Service: October 13, 2024
Patient was seen and examined. No new events reported. Remains on 2 L of oxygen.
Objective Data
-
Labs:
Laboratory Results
10/13/24 10/13/24
04:15 04:16
WBC 6.4
Hgb 11.7 L
Hct 35.3 L
Plt Count 126 L
PT 25.9 H
INR 2.31
Sodium 138
Potassium 3.5
Chloride 109 H
Carbon Dioxide 23
BUN 20 H
Creatinine 0.6
Glucose 127 H
Calcium 8.3 L
Total Bilirubin 6.4 H
AST 1008 H*
ALT 641 H*
Alkaline Phosphatase 108
Vital Signs:
Vital Signs
Temp Pulse Resp BP Pulse Ox
99.8 F 99 20 92/56 96
10/13/24 07:25 10/13/24 09:21 10/13/24 07:25 10/13/24 09:21 10/13/24 07:25
I&O
10/12/24 10/13/24 10/14/24
06:59 06:59 06:59
Intake Total 2935 / 2935
Balance 2935 / 2935
[2024-10-13 11:35] VITALS: BP 102/64
--- NOTE | 2024-10-13 13:03 | W.PN.GI.CBS2 ---
Today's Communication / Plan
-
trend liver labs, nac gtt
Assessment / Plan
-
Ms Orantes is a 48yo W with h/o cerebral palsy and remote ovarian cancer stage 3 who initially presented with constipation and PEG leakage. Found to have abnormal LFTs and today first day INR checked and was elevated - concerning for acute liver
failure. Having intermittent hypotension as well (as low as systolic BP in 70-80s).
Admitted 10/07 - liver labs checked 10/08:
AST 1062 (10/08) --> 1316 (10/11)--> 1187 (10/12)
ALT 729 (10/08) --> 725 (10/11) --> 699 (10/12)
TB 5.2 (10/08) --> 7.5 (10/11) --> 6.7 (10/12)
INR only checked today 10/12 --> 2.5
LFTs previously were normal 07/19/24
INR normal 03/17/24
MELD 10/12 calculated -
Work up so far:
Liver labs:
Hep A IgM pending
No liver work up done during this admission was all done in April 2024 (had AST/ALT in 150s)
Imaging:
10/09 US doppler
Normal ultrasound evaluation of the abdominal vasculature.
Limited visualization of the liver secondary to positioning and requiring intercostal imaging. Normal in size.
No gallstones, though there is generalized gallbladder wall thickening measuring up to 5.1 mm. Uncertain etiology.
No bile duct dilatation.
No obstructive uropathy. Renal cysts.
10/11 NM Hepatobiliary (hida)
Impression: No scintigraphic evidence of cystic duct obstruction.
Nonvisualization of activity in the small bowel and vicarious excretion of activity most likely related to elevated serum bilirubin and not biliary tract obstruction.
10/11 CT:
Nonspecific pulmonary parenchymal opacity; consider edema from volume overload or congestive heart failure, diffuse pneumonia, or nonspecific alveolitis.
Moderate gallbladder distention. Top normal gallbladder wall thickness. Mild gallbladder wall edema suggested. No bile duct dilatation.
Nonobstructing renal calculi. Renal cysts.
Predominantly liquid stool throughout the colon with mild distention and scattered air-fluid levels. Recommend correlation with history of diarrhea.
Mild distention without gross dilatation of proximal small bowel loops, with a few air-contrast levels. More distal small bowel appears relatively collapsed, containing enteric contrast material. No definitive transition is identified to suggest
small bowel obstruction. Possible proximal small bowel ileus. However, depending on clinical concern, follow-up small bowel study may be considered if there is significant clinical concern for the possibility of a small bowel obstruction.
Percutaneous gastrostomy tube in place. No abdominal wall collection or hernia.
Impression - With elevated INR, abnormal LFTs, I am concerned about acute liver failure
Recommendations:
- Acute liver failure work up ordered (autoimmune, hepatitis, Pillo's, A1AT, herediatry hemochromatosis, tylenol, CMV, EBV, HSV)
- I d/w liver transplant at [facility] again today - will trend ammonia/lactic acid tomorrow - if these are high she would need to be transferred now as we cannot assess her mental status. I d/w family re: transfer they are agreeable if needed.
- Started N-acetylcysteine drip per [facility] protocol 10/12
- Vit K 10 SQ given 10/12
- Daily MELD labs
- Possible liver biopsy on Wednesday if INR high t/c transjugular
- I d/w Dr. Liu patient does NOT have symptoms of small bowel obstruction and he reviewed films personally. Questionable sigmoid narrowing can consider gastrografin enema but would hold off for now as having BMs.
Subjective
Subjective
Date of Service: October 13, 2024
no events labs stable
Objective
Data Reviewed
Laboratory Data:
Laboratory Results
10/13/24 04:16
10/13/24 04:15
Laboratory Results
PT 25.9 Sec (11.4-14.6) H 10/13/24 04:16
INR 2.31 10/13/24 04:16
Total Bilirubin 6.4 mg/dl (0.2-1.3) H 10/13/24 04:15
AST 1008 U/L (14-36) H* 10/13/24 04:15
ALT 641 U/L (0-35) H* 10/13/24 04:15
Alkaline Phosphatase 108 U/L (38-126) 10/13/24 04:15
Lipase 113 U/L (23-300) 10/09/24 08:25
Vital Signs and I&O:
Vital Signs
Temp Pulse Resp BP Pulse Ox
98.0 F 90 20 102/64 93
10/13/24 11:35 10/13/24 11:35 10/13/24 11:35 10/13/24 11:35 10/13/24 11:35
I&O
10/12/24 10/13/24 10/14/24
06:59 06:59 06:59
Intake Total 2935 / 2935
Balance 2935 / 2935
Physical Exam
Physical Exam
HEENT: Anicteric
Cardiology: Normal Sinus Rhythm
Pulmonary: Clear
GI: Non Distended and Non Tender
[2024-10-13 13:07] LABS: Hepatitis A IgM Antibody Negative (Negative)
--- NOTE | 2024-10-13 14:13 | CM ---
Reviewed the chart notes and spoke with the parents at the bedside. Patient on Acetylcysteine gtt. CM continues to be available to patient/family and is monitoring medical plan for needs at discharge.
Plan: Discharge plans will depend on the patient's progress.
[2024-10-13 15:25] VITALS: BP 97/54
--- NOTE | 2024-10-13 15:38 | W.PN.PUL3 ---
Today's Communication / Plan
-
No additional recommendation from the pulmonary perspective
Incentive spirometry if able
Avoid sedatives
Aspiration precautions
No indication for antibiotic
As needed imaging of the chest
Continue with liver failure evaluation and consideration to transfer out to a tertiary care Medical Center.
Assessment
-
Patient is a 48-year-old female with previous history of cerebral palsy, seizures, functional quadriplegia, nonverbal at baseline, recurrent aspiration status post PEG placement presenting to ER from home with concern for PEG tube malfunction.
She is admitted on 10/07/2024 undergoing workup for abnormal liver enzymes as well. She had a CT abdomen pelvis which indicates small groundglass opacities in the basilar portion of the lung. She has a history of abnormal chest imaging due to
chronic aspiration.
Recurrent aspiration
Chronic abnormal chest imaging, GGOs
Chronic hypoxic respiratory failure on nasal cannula, 2L (baseline)
PEG malfunction
Elevated LFTs
Conditions present prior to admission
Chronic dysphagia status post PEG
Recurrent aspiration pneumonia
Cerebral palsy with functional quadriplegia
Nonverbal
Seizure disorder
Esophageal web
Hypertension
Ovarian cancer status post total abdominal hysterectomy and oophorectomy
Vagus nerve stimulator implant
Appendectomy
Plan
Chronic hypoxemia -- on 2L satting 95%-baseline.
Wean as able.
Prior history of lung disease is noted including recurrent aspiration PNAs
Extensive CP/neurologic history
CXR/CT obtained indicating bilateral patchy opacities, more compared with prior but changing
This is typical with aspiration, opacities may come and go
CT in past showing bilateral opacities as well
The abnormalities/GGOs on chest imaging are chronic.
Chest x-ray 10/13/2024: Low lung volumes. Possible bibasilar atelectasis.
There is no signs for active infection. Pulmonary status is stable.
Currently not on antibiotics
Would observe off
Airway clearance measures are limited due to patient's cognitive function
I am not sure there is any good recommendations in this situation
Palliative care would certainly be warranted
Speech therapy eval in past and this admission reviewed--
Prior VSE 04/14/24- Deep penetration of thin liquids with no aspiration noted. Patient presents with moderate oral dysphagia and mild pharyngeal dysphagia, similar to recent study.
Supraglottic penetration (PAS 3) noted with thin liquids via consecutive straw sips.
-
Prior evals:
Eval 06/13/24- Patient exhibits clinical signs of oropharyngeal dysphagia, likely chronic related to Cerebral Palsy and acutely exacerbated by aspiration pneumonia.
Patient remains at high for aspiration and related complications given current tenuous pulmonary status, lethargy, decreased mobility at baseline, and poor oral hygiene.
Patient also is at high risk for post-prandial aspiration given esophageal web and PEG tube feedings, with patient's father reporting 2-3 episodes of regurgitation of tube feedings 2 weeks ago.
At this time, recommending NPO with PEG tube for all nutrition/medication/hydration, as patient appears with more severe oropharyngeal dysphagia than during last admission due to acuity of illness at this time.
Suspect when patient improves medically, pt may be able to safely tolerate puree textures and Mildly-thick liquids for pleasure
Family then refused further speech eval
Prior ECHO results are reviewed indicating normal function
Liver failure workup ongoing. Consideration to transfer to [facility] liver transplant center. Gastroenterology following.
No additional recommendation from the pulmonary perspective.
Imaging of the chest as needed
Do not observe off antibiotic
Aspiration precautions
Sign off
Diagnostic Data
Chest X-Ray: 06/15/24- Airspace opacities in the left midlung suspicious for pneumonia. Right lung is grossly clear.
06/12/24- 1. Moderate-sized airspace opacities in the right mid/lower lung and in the left lower lobe suspicious for bilateral pneumonia.
2. Severe bowing deformities of both humeral diaphyses which appear unchanged.
04/12/24- No acute disease of the chest. No definitive pneumonia on this plain film examination.
CT Scan: CHEST 03/17/24- Bilateral pneumonia. Large amount of stool in the colon consistent with constipation.
Multiple bilateral hypodense lesions in the kidneys consistent with cysts. Mild caliectasis in the right kidney.
Diffuse urinary bladder wall thickening consistent with the history of UTI.
Echo: 04/11/24-Normal LV size and function with no regional wall motion abnormalities. LVEF is 55 to 60% by visual estimation. Normal diastolic function. Normal right ventricular size and function. No significant valvular disease.
No prior study available for comparison.
PFT's:
Reports and relevant images were personally reviewed.
Subjective Data
-
Date of Service:
Date of Service: October 13, 2024
Chief Complaint: Pulmonary Follow Up (Abnormal chest x-ray)
Subjective:
No overnight event
Respiratory status is stable
Review of Systems
General: Fever (n)
GI: Abdominal Pain (n) and Nausea (n)
Objective Data
Data Reviewed
Vital Signs / I&O / Oxygen:
Vital Signs
Temp Pulse Resp BP Pulse Ox
98.0 F 90 20 102/64 93
10/13/24 11:35 10/13/24 11:35 10/13/24 11:35 10/13/24 11:35 10/13/24 11:35
Intake and Output
10/12/24 10/13/24 10/14/24
06:59 06:59 06:59
Intake Total 2935 / 2935
Balance 2935 / 2935
SaO2 93
Nasal Cannula flow liters per 1
minute
Physical Exam
General: Comfortable
HEENT: Normocephalic
Cardiovascular: S1-S2
Respiratory: Non-Labored Respirations
GI: Soft and Non Distended
Neurology: Awake
Labs/Micro/Reports
Lab Data
10/13/24 04:16
10/13/24 04:15
Laboratory Results
10/13/24
04:16
PT 25.9 H
INR 2.31
Microbiology
10/12/24 17:22 Nasal Swab Influenza Types A & B (SAMARA) - Final
Negative for Influenza A & B, NAAT
Negative results must be combined with clinical observations
and patient history.
Nucleic Acid Amplification test (NAAT)performed on the
[employer] platform.
[2024-10-13] MEDS: LOVENOX 40 MG SC (17:32)
[2024-10-13] MEDS: ACETADOTE 1040.4 MG IV (17:37)
[2024-10-13 19:23] VITALS: BP 136/57
[2024-10-13] MEDS: SENNA SYRUP TUBE ×2 (19:38→19:46)
[2024-10-13 23:47] VITALS: BP 126/72
[2024-10-14 04:09] VITALS: BP 104/51
[2024-10-14 08:33] VITALS: BP 100/61
[2024-10-14 08:34] LABS: Hematocrit 35.3 % (37.0-47.0); Hemoglobin 11.7 g/dL (12.0-16.0); Mean Corp Hgb Conc. 33.1 g/dL (33.0-37.0); Mean Corpuscular Volume 93.4 fL (81.0-99.0); Mean Platelet Volume 12.2 fL (7.4-10.4); Platelet Count 119 10^3/uL (130-400); Red Blood Cell Count 3.78 10^6/uL (4.20-5.40); White Blood Cell Count 5.7 10^3/uL (4.8-10.8)
[2024-10-14 08:41] LABS: Ammonia < 9 umol/L (9-30)
[2024-10-14 08:51] LABS: INR 1.92; PT 22.1 Sec (11.4-14.6)
--- NOTE | 2024-10-14 09:41 | CON.ONC ---
Impression
Impression
Recurrent aspiration
Chronic abnormal chest imaging, GGOs
Chronic hypoxic respiratory failure on nasal cannula, 2L (baseline)
PEG malfunction
Elevated LFTs
UTI
mild thrombocytopenia
Plan
Plan
mild thrombocytopenia may be consumptive secondary to infection +/- drug induced from abx, however, platelet count stable >100,000 and no evidence of bleeding.
No barrier to DVT ppx with enoxaparin. 4T score low probability (<5%). continue to monitor CBC daily.
Patient History
History of Present Illness
48yo F presented with concern for peg tube malfunction. Family noted some leaking from the Peg tube several days ago that resolved spontaneously. Her family also noted some dark urine and chronic constipation. Initial evaluation showed no
significant abnormalities in her CBC, however, Tbili 7.5, AST 1316, ALT 725, Alk phos 146. Initial ab xray showed possible ileus. CT ab/pelvis showed CHF vs PNA, vs non-specific alveolitis, moderate gallbladder distention, non-obstructing renal
calculi, and possible small bowel ileus. She is on IVabx for pseudomonas UTI, she is flu negative.
Hematology is consulted for evaluation of thrombocytopenia. Her platelet count is historically normal and was normal on admission. Her platelet count has trended down o 119,000 today. There is no overt bleeding on exam and her mother reports no
bleeding prior to admission. She has been treated with cefepime and metronidazole.
History obtained via chart review and mother at bedside.
Past-Medical/Surgical History
PMH cerebral palsy, seizures, functional quadriplegia, non-verbal at baseline, ovarian cancer, chronic aspiration, chronic hypotension
PSH Appendectomy, Gynecological (LUCERO, BSO) and vagus nerve stimulator implant
Social never smoker, no ETOH or recreational drugs. Lives with mother, single, disabled
Family non-contributory
Patient Medication
�Medication �Instructions �Recorded �Confirmed �Last Taken �Type
fluticasone propionate 50 2 spray intranasal HS Allergies 05/03/24 11/23/24 05/09/24 History
mcg/actuation nasal
spray,suspension
clobazam 10 mg tablet 10 mg feeding tube BID #60 tabs 04/21/24 10/07/24 Unknown Rx
oxcarbazepine 300 mg tablet 600 mg (2 x 300 mg) feeding tube 04/21/24 10/07/24 Unknown Rx
BID #120 tabs
polyethylene glycol 3350 17 gram 17 g feeding tube DAILYPRN PRN 04/21/24 10/07/24 Unknown Rx
oral powder packet (HealthyLax) constipation #100 ea
Probiotic 1 cap feeding tube DAILY 06/12/24 10/07/24 Unknown History
ascorbic acid (vitamin C) 500 mg 500 mg feeding tube HS Supplement 06/12/24 10/07/24 Unknown History
tablet (Vitamin C)
docusate sodium 50 mg/5 mL oral 50 mg feeding tube BID Constipation 06/12/24 10/07/24 Unknown History
liquid
midodrine 5 mg tablet 15 mg feeding tube BID 06/12/24 10/07/24 Unknown History
montelukast 10 mg tablet 10 mg feeding tube DAILY 06/12/24 10/07/24 Unknown History
Lung/Breathing Issues
sennosides 8.8 mg/5 mL oral syrup 8.8 mg feeding tube DAILY 06/12/24 10/07/24 Unknown History
Constipation
Active Medications
Generic Name Dose Route Start Last Admin
Trade Name Freq PRN Reason Stop Dose Admin
Acetaminophen 650 mg 10/07/24 04:55
Acetaminophen 325 Mg Tablet PO 11/04/24 04:54
Q4HPRN PRN
mild pain/JACKSON/temp> 100.4F
Clobazam 10 mg 10/07/24 08:00 10/13/24 19:39
Clobazam 10 Mg (Non-Form) Tablet TUBE 11/04/24 07:59 10 mg
BID MARII Administration
Enoxaparin Sodium 40 mg 10/07/24 18:00 10/13/24 17:32
Enoxaparin Sodium 40 Mg/0.4 Ml Syringe SC 11/04/24 17:59 40 mg
QPM MARII Administration
Erythromycin 0 applic 10/07/24 13:00 10/13/24 21:15
Erythromycin 0.5% (Ophthalmic Ointment) 1 Gram Tube OPHTH 10/17/24 12:59 1 applic
QID MARII Administration
Metronidazole 100 mls @ 100 mls/hr 10/09/24 12:00 10/12/24 13:11
Flagyl 500 Mg IV Not Given
Q8H MARII
Acetylcysteine 8,080 mg/ 1,040.4 mls @ 43.35 mls/hr 10/12/24 18:30 10/13/24 17:37
Sodium Chloride IV 10/15/24 18:29 1,040.4 mls
Q24H MARII Administration
Miconazole Nitrate 0 applic 10/07/24 14:00 10/13/24 19:42
Miconazole Powder Bottle TOPICAL 11/04/24 13:59 1 applic
BID MARII Administration
Midodrine 15 mg 10/07/24 08:00 10/13/24 17:32
Midodrine 5 Mg Tablet TUBE 11/04/24 07:59 15 mg
BID AT 0800,1700 MARII Administration
Montelukast Sodium 10 mg 10/07/24 08:00 10/13/24 09:22
Montelukast Sodium 10 Mg Tablet TUBE 11/04/24 07:59 10 mg
DAILY MARII Administration
Ondansetron HCl 4 mg 10/07/24 04:55
Ondansetron 4 Mg/2 Ml Vial IV 11/04/24 04:54
Q6HPRN PRN
nausea and vomiting
Oxcarbazepine 600 mg 10/07/24 08:00 10/13/24 19:39
Oxcarbazepine 300 Mg Tablet TUBE 11/04/24 07:59 600 mg
BID MARII Administration
Polyethylene Glycol 17 grams 10/08/24 20:00 11/29/24 19:39
Polyethylene Glycol Powder 17 Grams Packet TUBE 11/05/24 19:59 17 grams
BID MARII Administration
Sennosides 8.8 mg 10/08/24 20:00 10/13/24 19:46
Sennosides (Senna Syrup) 8.8 Mg/5 Ml Unit Dose Cup TUBE 11/05/24 19:59 Not Given
BID MARII
Sodium Chloride 0 flush 10/07/24 05:00 10/07/24 23:05
Sodium Chloride 0.9% (Flush) Syringe IV 11/04/24 04:59 2 flush
PER PROTOCOL MARII Administration
Review of Systems
-
Unable to obtain full review of systems at this time due to: Patient Non Verbal
Physical Exam
-
General: No Apparent Distress
HEENT: Moist Mucous Membranes; Negative Jaundice
Cardiology: Normal Sinus Rhythm
Pulmonary: Rhonchi and Other (productive cough)
GI: Soft
Musculoskeletal: Other (contractures of b/l UE)
Extremities: Pulses Present and Edema (trace ankle b/l)
Labs
Lab Results
WBC 5.7 10^3/uL (4.8-10.8) 10/14/24 08:21
RBC 3.78 10^6/uL (4.20-5.40) L 10/14/24 08:21
Hgb 11.7 g/dL (12.0-16.0) L 10/14/24 08:21
Hct 35.3 % (37.0-47.0) L 10/14/24 08:21
MCV 93.4 fL (81.0-99.0) 10/14/24 08:21
MCH 31.0 pg (27.0-31.0) 10/14/24 08:21
MCHC 33.1 g/dL (33.0-37.0) 10/14/24 08:21
RDW 16.0 % (11.5-14.5) H 10/14/24 08:21
Plt Count 119 10^3/uL (130-400) L 10/14/24 08:21
MPV 12.2 fL (7.4-10.4) H 10/14/24 08:21
Abs Immat Gran (auto) Cancelled 10/10/24 06:00
Absolute Neuts (auto) Cancelled 10/10/24 06:00
Absolute Lymphs (auto) Cancelled 10/10/24 06:00
Absolute Monos (auto) Cancelled 10/10/24 06:00
Absolute Eos (auto) Cancelled 10/10/24 06:00
Absolute Basos (auto) Cancelled 10/10/24 06:00
Immature Gran % Cancelled 10/10/24 06:00
Neutrophils % Cancelled 10/10/24 06:00
Lymphocytes % Cancelled 10/10/24 06:00
Monocytes % Cancelled 10/10/24 06:00
Eosinophils % Cancelled 10/10/24 06:00
Basophils % Cancelled 10/10/24 06:00
Creatinine 0.6 mg/dL (0.6-1.0) 10/13/24 04:15
Vital Signs
Vital Signs
Temp Pulse Resp BP Pulse Ox
97.5 F 90 18 100/61 94
10/14/24 08:33 10/14/24 08:33 10/14/24 08:33 10/14/24 08:33 10/14/24 08:33
[2024-10-14 09:53] LABS: Absolute Neutrophils -Man Diff 3.3 10^3/uL (1.4-6.5); Atypical Lymphocytes 1 %; Band Neutrophils 10 % (0-3); Eosinophils 2 % (0-6); Lymphocytes 25 % (20-51); Metamyelocytes 1 % (-); Monocytes 9 % (2-9); Myelocytes 3 % (-); Segmented Neutrophils 49 % (42-75)
[2024-10-14 09:54] LABS: Platelets Checked Yes
[2024-10-14 09:55] LABS: Normal RBC Morphology Yes; Total Cells Counted 100
[2024-10-14] MEDS: TRILEPTAL 600 MG TUBE ×2 (10:12→20:14)
[2024-10-14] MEDS: ONFI 10 MG TUBE ×2 (10:12→20:14)
[2024-10-14] MEDS: SINGULAIR 10 MG TUBE (10:13)
[2024-10-14] MEDS: ProAmatine 15 MG TUBE ×2 (10:13→17:18)
[2024-10-14 10:14] LABS: ALT (SGPT) 548 U/L (0-35); Albumin 2.1 g/dl (3.5-5.0); Alkaline Phosphatase 128 U/L (38-126); Blood Urea Nitrogen 17 mg/dl (7-17); Calcium 8.1 mg/dl (8.4-10.2); Carbon Dioxide 24 mmol/L (22-30); Chloride 107 mmol/L (98-107); Direct Bilirubin 5.4 mg/dl (0.0-0.4); Estimated Creatinine Clearance 86 ml/min; Glucose 128 mg/dl (70-99); Potassium 3.6 mmol/L (3.5-5.1); Sodium 138 mmol/L (135-145); Total Bilirubin 6.3 mg/dl (0.2-1.3); Total Protein 5.3 g/dl (6.3-8.2); eGFR > 60.00
[2024-10-14] MEDS: ERYTHROMYCIN 0.5% OPHTHALMIC OINTMENT 1 APPLIC OPHTH ×4 (10:14→22:18)
[2024-10-14] MEDS: SENNA SYRUP TUBE ×2 (10:14→20:15)
[2024-10-14] MEDS: MIRALAX TUBE ×2 (10:14→20:14)
[2024-10-14] MEDS: DESENEX/MITRAZOL/ZEASORB 1 APPLIC TOPICAL ×2 (10:15→21:04)
--- NOTE | 2024-10-14 10:18 | W.PN.GI.CBS2 ---
Addendum entered and electronically signed by Emma Anand MD 10/14/24 15:03:
I s/w lab and was able to send out HFE gene test hopefully as an add on.
Original Note:
Today's Communication / Plan
-
liver labs, nac gtt
Assessment / Plan
-
Ms Orantes is a 48yo W with h/o cerebral palsy and remote ovarian cancer stage 3 who initially presented with constipation and PEG leakage. Found to have abnormal LFTs and 10/12 was first day INR checked and was elevated - concerning for acute liver
failure. Having intermittent hypotension as well (as low as systolic BP in 70-80s).
Admitted 10/07 - liver labs checked 10/08:
AST 1062 (10/08) --> 1316 (10/11)--> 1187 (10/12)
ALT 729 (10/08) --> 725 (10/11) --> 699 (10/12)
TB 5.2 (10/08) --> 7.5 (10/11) --> 6.7 (10/12)
INR only checked today 10/12 --> 2.5
LFTs previously were normal 07/19/24
INR normal 03/17/24
MELD 10/12 calculated -
Imaging:
10/09 US doppler
Normal ultrasound evaluation of the abdominal vasculature.
Limited visualization of the liver secondary to positioning and requiring intercostal imaging. Normal in size.
No gallstones, though there is generalized gallbladder wall thickening measuring up to 5.1 mm. Uncertain etiology.
No bile duct dilatation.
No obstructive uropathy. Renal cysts.
10/11 NM Hepatobiliary (hida)
Impression: No scintigraphic evidence of cystic duct obstruction.
Nonvisualization of activity in the small bowel and vicarious excretion of activity most likely related to elevated serum bilirubin and not biliary tract obstruction.
10/11 CT:
Nonspecific pulmonary parenchymal opacity; consider edema from volume overload or congestive heart failure, diffuse pneumonia, or nonspecific alveolitis.
Moderate gallbladder distention. Top normal gallbladder wall thickness. Mild gallbladder wall edema suggested. No bile duct dilatation.
Nonobstructing renal calculi. Renal cysts.
Predominantly liquid stool throughout the colon with mild distention and scattered air-fluid levels. Recommend correlation with history of diarrhea.
Mild distention without gross dilatation of proximal small bowel loops, with a few air-contrast levels. More distal small bowel appears relatively collapsed, containing enteric contrast material. No definitive transition is identified to suggest
small bowel obstruction. Possible proximal small bowel ileus. However, depending on clinical concern, follow-up small bowel study may be considered if there is significant clinical concern for the possibility of a small bowel obstruction.
Percutaneous gastrostomy tube in place. No abdominal wall collection or hernia.
Impression - With elevated INR, abnormal LFTs, I am concerned about acute liver failure
Encouraging today 10/14 improvement in INR and slight improvement in LFTs
Recommendations:
- Acute liver failure work up ordered (viral, autoimmune, hepatitis, Pillo's, A1AT, herediatry hemochromatosis, tylenol, CMV, EBV, HSV) majority pending, IgG high other immunoglobulins normal, ferritin 822 but acute phase reactant does have high
iron sat 69%
- I have been in touch with liver transplant Dr. Jacinto at [facility] and have reached out to her today as update - ammonia normal today unclear why lactic acid was cancelled will reorder for tmwr
- Started N-acetylcysteine drip per [facility] protocol 10/12
- Vit K 10 SQ given 10/12
- Daily MELD labs
- Possible liver biopsy on Wednesday if INR high t/c transjugular
- I d/w Dr. Liu patient does NOT have symptoms of small bowel obstruction and he reviewed films personally. Questionable sigmoid narrowing can consider gastrografin enema but would hold off for now as having BMs.
Subjective
Subjective
Date of Service: October 14, 2024
no events overnight
Objective
Data Reviewed
Laboratory Data:
Laboratory Results
10/14/24 08:21
10/14/24 08:21
Laboratory Results
PT 22.1 Sec (11.4-14.6) H 10/14/24 08:21
INR 1.92 10/14/24 08:21
Total Bilirubin 6.3 mg/dl (0.2-1.3) H 10/14/24 08:21
AST 1008 U/L (14-36) H* 10/13/24 04:15
ALT 548 U/L (0-35) H* 10/14/24 08:21
Alkaline Phosphatase 128 U/L (38-126) H 10/14/24 08:21
Lipase 113 U/L (23-300) 10/09/24 08:25
Vital Signs and I&O:
Vital Signs
Temp Pulse Resp BP Pulse Ox
97.5 F 90 18 100/61 94
10/14/24 08:33 10/14/24 10:13 10/14/24 08:33 10/14/24 10:13 10/14/24 08:33
I&O
10/13/24 10/14/24 10/15/24
06:59 06:59 06:59
Intake Total 1460 / 1460
Balance 1460 / 1460
Physical Exam
Physical Exam
Cardiology: Normal Sinus Rhythm
Pulmonary: Clear
GI: Non Distended, Non Tender and Other (peg)
Neuro: Non Focal
[2024-10-14 10:22] LABS: AST (SGOT) 827 U/L (14-36)
[2024-10-14 11:40] VITALS: BP 116/77
--- NOTE | 2024-10-14 15:28 | W.PN.HOSP.TC ---
Today's Communication/Plan
-
AST, ALT improved
Possible liver biopsy Wednesday
Assessment / Plan
Assessment / Plan
Physical Exam
General: No Apparent Distress
Respiratory: Rhonchi bilaterally
Cardiac: Regular Rhythm and S1/S2
GI: Soft, Positive Bowel Sounds and Peg Tube
Neuro: Sleeping, at times opening her eyes
Psych: Calm
Assessment/Plan
48 F with cerebral palsy and frequent aspiration events now s/p PEG comes in with PEG malfunction where feeding was leaking from around PEG site. No vomiting. No diarrhea. Has been having regular bms. Found to have a UTI. Abdominal xray without
airfluid levels to suggest obstruction. Possible delayed emptying, ileus.
Tube feeding leakage likely secondary to severe constipation
- At home on (On Compleat 1.5 45ml/hr with 50 ml/hr water flush for 16 hours daily) .
- CW tube feeding which she seems to tolerance .
- GI following.
- Tube study was performed and Contrast instilled through the patient's indwelling PEG tube outlines the stomach and proximal small bowel, confirming placement.
Constipation
-Recommended to continue with Colace, senna and increase MiraLAX to twice daily.
-Also will need additional medication regimen prn .
-s/p Enema.
-AXR with improvement in stool burden .
-With possible ileus on CT imaging, consulted surgery: per surgery team, patient does NOT have symptoms of small bowel obstruction and surgeon reviewed films personally -- there is questionable sigmoid narrowing; can consider Gastrograffin enema but
would hold off for now as patient has been having bowel movements
Nonspecific pulmonary parenchymal opacity on CT Abdomen Pelvis
-Consulted cardio who said no need for Diuretics (which patient could not tolerate anyway due to her hypotension), they mentioned based on chart review no need for cardiology consult at this time
-Can consider echocardiogram and/or CXR
-Consulted pulm who mentioned opacities on chest imaging are chronic, they will come and go with aspiration
-CXR on 10/13/24: as per radiologist's report, showed: 'Low lung volumes with diffuse interstitial opacification and bibasilar opacities which may represent multifocal pneumonia or mild edema/atelectasis.'
Abnormal LFTs acute cholecystic hepatitis picture noted with elevated bilirubin and transaminitis.
Concern for Acute Liver Failure
Persistent Elevated LFTs
High INR
-Acute liver failure workup as per GI work up ordered (viral, autoimmune, hepatitis, Pillo's, A1AT, herediatry hemochromatosis, tylenol, CMV, EBV, HSV) majority pending, IgG high other immunoglobulins normal, ferritin 822 but acute phase reactant
does
have high iron sat 69% -- HFE gene sent to check for hemochromatosis
-I spoke on 10/12/[address] [place] Text [address] Anand (gardening instructor) who mentioned she is doing a full liver workup and Dr[facility] Jac[facility]
-No prior history of biliary disease according to the father
-Per Dr. Anand, no need for Flagyl cover for since biliary is not the source
-Ammonia and lactic acid are normal, which is reassuring (if these were high, she would need to be transferred emergently)
-Continue N-acetylcysteine drip per ASSISTED protocol, as per gastroenterology
-Vitamin K was ordered (besides liver, malnutrition could be increasing the INR) -- subq was ordered because poor iv access and pt cannot take po
-Possible liver biopsy as per GI
Thrombocytopenia
-Possibly secondary to recent infection +/- drug induced from antibiotics
-Appreciate hematology evaluation and recommendations
-Okay to continue DVT prophylaxis with Lovenox
Pseudomonas UTI
-Followed-up on the susceptibility results.
-Received Cefepime for ~5 days (start date was 10/08/24)
Chronic hypotension
- Mostly of the systolics are in 90s at home too per patient's father
- Continue with midodrine
Seizure d/o
- continue clobazam and oxcarbazepine
Cerebral palsy with functional quadriplegia
Chronic dysphagia status post PEG tube
Chronic hypotension with midodrine
History of ovarian cancer status post surgery
DVT PPX - lovenox sq
Code status - full code
d/w with patient's mother
Anticipated Discharge: > 48 hours
Subjective/Interval History
-
Date of Service: October 14, 2024
Patient was seen and examined. No new events or complaints reported.
Objective Data
-
Labs:
Laboratory Results
10/14/24
08:21
WBC 5.7
Hgb 11.7 L
Hct 35.3 L
Plt Count 119 L
PT 22.1 H
INR 1.92
Sodium 138
Potassium 3.6
Chloride 107
Carbon Dioxide 24
BUN 17
Creatinine 0.6
Glucose 128 H
Calcium 8.1 L
Total Bilirubin 6.3 H
AST 827 H*
ALT 548 H*
Alkaline Phosphatase 128 H
Vital Signs:
Vital Signs
Temp Pulse Resp BP Pulse Ox
98.1 F 81 20 116/77 93
10/14/24 11:40 10/14/24 11:40 10/14/24 11:40 10/14/24 11:40 10/14/24 11:40
I&O
10/13/24 10/14/24 10/15/24
06:59 06:59 06:59
Intake Total 1460 / 1460
Balance 1460 / 1460
[2024-10-14 16:44] VITALS: BP 102/69
[2024-10-14] MEDS: LOVENOX 40 MG SC (17:18)
[2024-10-14] MEDS: ACETADOTE 1059.65 MG IV (17:18)
[2024-10-14] MEDS: ACETADOTE 1059.65 MEQ IV (17:18)
[2024-10-14 19:29] VITALS: BP 127/70
[2024-10-14 20:35] LABS: CMV IgG Antibody <0.20 U/mL (<=0.70)
[2024-10-14 20:37] LABS: CMV IgM Antibody <8.0 AU/mL (<=29.9)
[2024-10-14 20:40] LABS: EBV-EA (D) Ab IgG 45.7 U/mL (0.0-10.9); EBV-VCA IgG Antibodies >750.0 U/mL (0.0-21.9); EBV-VCA IgM Antibodies <10.0 U/mL (0.0-43.9)
[2024-10-14 22:06] LABS: Alpha-1-Antitrypsin 178 mg/dL (90-200); Ceruloplasmin 20 mg/dL (16-45)
[2024-10-14 22:48] LABS: CMV Qnt NAAT Plasma Log IU/mL Not Detected log IU/mL; CMV Quant NAAT Plasma Interp Not Detected (Not Detected); CMV Quant by NAAT Plasma IU/mL Not Detected
[2024-10-14 23:37] VITALS: BP 118/73
[2024-10-14 23:48] LABS: LKM-1 Ab (IgG) 15.5 U (0.0-24.9)
[2024-10-15 01:52] LABS: ANA, IgG Reflex to HEp-2 None Detected (None Detected)
[2024-10-15 02:23] LABS: Mitochondrial M2 Ab, IgG 11.3 Units (0.0-24.9)
[2024-10-15 03:17] VITALS: BP 122/75
[2024-10-15 04:58] LABS: INR 2.11; PT 23.8 Sec (11.4-14.6)
[2024-10-15 05:15] LABS: Hematocrit 33.2 % (37.0-47.0); Hemoglobin 10.9 g/dL (12.0-16.0); Mean Corp Hgb Conc. 32.8 g/dL (33.0-37.0); Mean Corpuscular Hgb 30.5 pg (27.0-31.0); Mean Platelet Volume 13.2 fL (7.4-10.4); Platelet Count 114 10^3/uL (130-400); Red Blood Cell Count 3.57 10^6/uL (4.20-5.40); Red Cell Dist. Width 15.9 % (11.5-14.5); White Blood Cell Count 5.9 10^3/uL (4.8-10.8)
[2024-10-15 05:18] LABS: Lactic Acid 1.4 mmol/L (0.7-2.0)
[2024-10-15 06:19] LABS: ALT (SGPT) 499 U/L (0-35); AST (SGOT) 752 U/L (14-36); Albumin 1.9 g/dl (3.5-5.0); Alkaline Phosphatase 113 U/L (38-126); Ammonia 12 umol/L (9-30); Blood Urea Nitrogen 17 mg/dl (7-17); Calcium 7.9 mg/dl (8.4-10.2); Carbon Dioxide 27 mmol/L (22-30); Chloride 105 mmol/L (98-107); Direct Bilirubin 5.3 mg/dl (0.0-0.4); Estimated Creatinine Clearance 86 ml/min; Glucose 123 mg/dl (70-99); Potassium 3.8 mmol/L (3.5-5.1); Sodium 137 mmol/L (135-145); Total Bilirubin 6.2 mg/dl (0.2-1.3); Total Protein 4.9 g/dl (6.3-8.2); eGFR > 60.00
[2024-10-15 07:17] VITALS: BP 99/62
[2024-10-15 07:17] LABS: Absolute Neutrophils -Man Diff 3.7 10^3/uL (1.4-6.5); Atypical Lymphocytes 3 %; Band Neutrophils 13 % (0-3); Eosinophils 1 % (0-6); Lymphocytes 13 % (20-51); Monocytes 18 % (2-9); Myelocytes 1 % (-); Platelets Checked Yes; Segmented Neutrophils 51 % (42-75)
--- NOTE | 2024-10-15 07:17 | W.PN.HOSP.TC ---
Today's Communication/Plan
-
Possible liver biopsy as per GI, on 10/16/24 -- hold tube feeds after midnight
Labs results are improving
Assessment / Plan
Assessment / Plan
Physical Exam
General: No Apparent Distress
Respiratory: Rhonchi bilaterally
Cardiac: Regular Rhythm and S1/S2
GI: Soft, Positive Bowel Sounds and Peg Tube
Neuro: Sleeping, at times opening her eyes
Psych: Calm
Assessment/Plan
48 F with cerebral palsy and frequent aspiration events now s/p PEG comes in with PEG malfunction where feeding was leaking from around PEG site. No vomiting. No diarrhea. Has been having regular bms. Found to have a UTI. Abdominal xray without
airfluid levels to suggest obstruction. Possible delayed emptying, ileus.
Tube feeding leakage likely secondary to severe constipation
- At home on (On Compleat 1.5 45ml/hr with 50 ml/hr water flush for 16 hours daily) .
- CW tube feeding which she seems to tolerance .
- GI following.
- Tube study was performed and Contrast instilled through the patient's indwelling PEG tube outlines the stomach and proximal small bowel, confirming placement.
Constipation
-Recommended to continue with Colace, senna and continue MiraLAX twice daily.
-Also will need additional medication regimen prn .
-Status post Enema.
-AXR with improvement in stool burden .
-With possible ileus on CT imaging, consulted surgery: per surgery team, patient does NOT have symptoms of small bowel obstruction and surgeon reviewed films personally -- there is questionable sigmoid narrowing; can consider Gastrograffin enema but
would hold off for now as patient has been having bowel movements
Nonspecific pulmonary parenchymal opacity on CT Abdomen Pelvis
-Consulted cardio who said no need for Diuretics (which patient could not tolerate anyway due to her hypotension), they mentioned based on chart review no need for cardiology consult at this time
-Can consider echocardiogram and/or CXR
-Consulted pulm who mentioned opacities on chest imaging are chronic, they will come and go with aspiration
-CXR on 10/13/24: as per radiologist's report, showed: 'Low lung volumes with diffuse interstitial opacification and bibasilar opacities which may represent multifocal pneumonia or mild edema/atelectasis.'
Abnormal LFTs acute cholecystic hepatitis picture noted with elevated bilirubin and transaminitis.
Concern for Acute Liver Failure
Persistent Elevated LFTs
High INR
-Since patient's mental status is difficult to assess, have checked ammonia and lactic acid which are normal (this is a way to monitor for encephalopathy through bloodwork)
-Acute liver failure workup as per GI work up ordered (viral, autoimmune, hepatitis, Pillo's, A1AT, herediatry hemochromatosis, tylenol, CMV, EBV, HSV) majority pending, IgG high other immunoglobulins normal, ferritin 822 but acute phase reactant
does
have high iron sat 69% -- HFE gene sent to check for hemochromatosis
-I spoke on 10/12/24 via [place] Text with Dr. Anand (tube skiver) who mentioned she is doing a full liver workup and Dr[facility] Jac[facility]
-No prior history of biliary disease according to the father
-Per Dr. Anand, no need for Flagyl cover for since biliary is not the source
-Ammonia and lactic acid are normal, which is reassuring (if these were high, she would need to be transferred emergently)
-Continue N-acetylcysteine drip per [facility] protocol, as per gastroenterology -- continue for through 10/16/24
-Vitamin K was ordered (besides liver, malnutrition could be increasing the INR) -- subq (because poor iv access and pt cannot take po) was ordered on 10/12/24, another dose of Vitamin K ordered for 10/15/24 given slight
increase in INR
-Daily MELD labs
-Possible liver biopsy as per GI, on 10/16/24 -- hold tube feeds after midnight
Thrombocytopenia
-Possibly secondary to recent infection +/- drug induced from antibiotics
-Appreciate hematology evaluation and recommendations
-Okay to continue DVT prophylaxis with Lovenox
Pseudomonas UTI
-Followed-up on the susceptibility results.
-Received Cefepime for ~5 days (start date was 10/08/24)
Chronic Hypotension
- Mostly of the systolics are in 90s at home too per patient's father
- Continue with midodrine
Seizure Disorder
- Continue clobazam and oxcarbazepine
Cerebral palsy with functional quadriplegia
Chronic dysphagia status post PEG tube
Chronic hypotension with midodrine
History of ovarian cancer status post surgery
DVT Prophylaxis: Lovenox subq
Code status - Full Code
d/w with patient's father
Anticipated Discharge: > 48 hours
Subjective/Interval History
-
Date of Service: October 15, 2024
Patient was seen and examined. Her dad was present in the room at the time of patient encounter. No new events or complaints reported.
Objective Data
-
Labs:
Laboratory Results
10/15/24
04:39
WBC 5.9
Hgb 10.9 L
Hct 33.2 L
Plt Count 114 L
PT 23.8 H
INR 2.11
Sodium 137
Potassium 3.8
Chloride 105
Carbon Dioxide 27
BUN 17
Creatinine 0.5 L
Glucose 123 H
Calcium 7.9 L
Total Bilirubin 6.2 H
AST 752 H*
ALT 499 H
Alkaline Phosphatase 113
Vital Signs:
Vital Signs
Temp Pulse Resp BP Pulse Ox
98.9 F 89 16 122/75 95
10/15/24 03:17 10/15/24 03:17 10/15/24 03:17 10/15/24 03:17 10/15/24 03:17
I&O
10/14/24 10/15/24 10/16/24
06:59 06:59 06:59
Intake Total 1460 / 1460 1468 / 1468
Balance 1460 / 1460 1468 / 1468
[2024-10-15 07:18] LABS: Anisocytosis 2+; Hypochromasia 2+; Microcytosis 2+; Normal RBC Morphology No; Total Cells Counted 100
[2024-10-15 08:15] LABS: Copper, Serum 77.5 ug/dL (80.0-155.0)
[2024-10-15] MEDS: ProAmatine 15 MG TUBE ×2 (09:06→17:12)
[2024-10-15] MEDS: TRILEPTAL 600 MG TUBE ×2 (09:07→20:10)
[2024-10-15] MEDS: ONFI 10 MG TUBE ×2 (09:07→20:10)
[2024-10-15] MEDS: ERYTHROMYCIN 0.5% OPHTHALMIC OINTMENT 1 APPLIC OPHTH ×4 (09:07→20:11)
[2024-10-15] MEDS: SINGULAIR 10 MG TUBE (09:07)
[2024-10-15] MEDS: MIRALAX 17 GRAMS TUBE (09:08)
[2024-10-15] MEDS: SENNA SYRUP TUBE ×2 (09:08→09:33)
[2024-10-15] MEDS: DESENEX/MITRAZOL/ZEASORB 1 APPLIC TOPICAL ×2 (09:26→20:09)
--- NOTE | 2024-10-15 11:12 | W.PN.GI.CBS2 ---
Today's Communication / Plan
-
monitor labs, possible liver biopsy (transjugular) tomorrow, Vit K again today
Assessment / Plan
-
Ms Orantes is a 48yo W with h/o cerebral palsy and remote ovarian cancer stage 3 who initially presented with constipation and PEG leakage. Found to have abnormal LFTs and 10/12 was first day INR checked and was elevated - concerning for acute liver
failure. Having intermittent hypotension as well (as low as systolic BP in 70-80s).
Admitted 10/07 - liver labs checked 10/08:
AST 1062 (10/08) --> 1316 (10/11)--> 1187 (10/12) --> 752 (10/15)
ALT 729 (10/08) --> 725 (10/11) --> 699 (10/12) --> 499 (10/15)
TB 5.2 (10/08) --> 7.5 (10/11) --> 6.7 (10/12) --> 6.2 (10/15)
INR first checked 10/12 --> 2.5 --> 1.92 (10/14) --> 2.11 (10/15)
LFTs previously were normal 07/19/24
INR normal 03/17/24
MELD 10/12 calculated - 10/15 -
Imaging:
10/09 US doppler
Normal ultrasound evaluation of the abdominal vasculature.
Limited visualization of the liver secondary to positioning and requiring intercostal imaging. Normal in size.
No gallstones, though there is generalized gallbladder wall thickening measuring up to 5.1 mm. Uncertain etiology.
No bile duct dilatation.
No obstructive uropathy. Renal cysts.
10/11 NM Hepatobiliary (hida)
Impression: No scintigraphic evidence of cystic duct obstruction.
Nonvisualization of activity in the small bowel and vicarious excretion of activity most likely related to elevated serum bilirubin and not biliary tract obstruction.
10/11 CT:
Nonspecific pulmonary parenchymal opacity; consider edema from volume overload or congestive heart failure, diffuse pneumonia, or nonspecific alveolitis.
Moderate gallbladder distention. Top normal gallbladder wall thickness. Mild gallbladder wall edema suggested. No bile duct dilatation.
Nonobstructing renal calculi. Renal cysts.
Predominantly liquid stool throughout the colon with mild distention and scattered air-fluid levels. Recommend correlation with history of diarrhea.
Mild distention without gross dilatation of proximal small bowel loops, with a few air-contrast levels. More distal small bowel appears relatively collapsed, containing enteric contrast material. No definitive transition is identified to suggest
small bowel obstruction. Possible proximal small bowel ileus. However, depending on clinical concern, follow-up small bowel study may be considered if there is significant clinical concern for the possibility of a small bowel obstruction.
Percutaneous gastrostomy tube in place. No abdominal wall collection or hernia.
Impression - With elevated INR, abnormal LFTs, I am concerned about acute liver failure
AST/ALT/bili improving but slight rise in INR today
Liver work up completed so far:
A1AT neg
ceruloplasmin neg
IgG 1702 - IgA/IgM normal
EDGAR neg
AMA neg
Anti LKM neg
soluble liver Ab pending
CMV neg
EBV IgM neg (IgG pos)
Hep A IgM neg
Hep BsAg/sAb/cAb total neg
Hep C Ab neg
Ferritin 822
TS 69
Iron 224
Tylenol neg
Pending herpes and hep E IgM and hereditary hemochromatosis gene
Recommendations:
- Acute liver failure work up ordered outlined above
- Lactic acid and ammonia have been normal - I d/w Dr. Jacinto since we cannot assess her mental status this is a way we can monitor with bloodwork for ? encephalopathy
- Started N-acetylcysteine drip per INDIRA protocol 10/12 - I d/w Dr. Jacinto today plan for one more additional day of NAC gtt (to be completed 10/16) since she does have some improvement
- Vit K 10 SQ given 10/12 - I will order for another dose today
- Daily MELD labs
- Possible liver biopsy on Wednesday recommend transjugular approach - I d/w Dr. Jacinto she does think liver biopsy would be helpful in this scenario since we still do not have etiology I d/w dad at length r/a/b, given patient's non verbal status
would need sedation, he is going to d/w and decide will make NPO after midnight in case (hold TF)
- I d/w Dr. Liu patient does NOT have symptoms of small bowel obstruction and he reviewed films personally. Questionable sigmoid narrowing can consider gastrografin enema but would hold off for now as having BMs.
I spent extensive time coordination of care with patient's family, liver transplant center, pharmacy
Total Time Spent with Patient (in minutes): 50
Subjective
Subjective
Date of Service: October 15, 2024
No events
Objective
Data Reviewed
Laboratory Data:
Laboratory Results
10/15/24 04:39
10/15/24 04:39
Laboratory Results
PT 23.8 Sec (11.4-14.6) H 10/15/24 04:39
INR 2.11 10/15/24 04:39
Total Bilirubin 6.2 mg/dl (0.2-1.3) H 10/15/24 04:39
AST 752 U/L (14-36) H* 10/15/24 04:39
ALT 499 U/L (0-35) H 10/15/24 04:39
Alkaline Phosphatase 113 U/L (38-126) 10/15/24 04:39
Lipase 113 U/L (23-300) 10/09/24 08:25
Vital Signs and I&O:
Vital Signs
Temp Pulse Resp BP Pulse Ox
98.8 F 86 18 99/62 97
10/15/24 07:17 10/15/24 07:17 10/15/24 07:17 10/15/24 09:06 10/15/24 10:30
I&O
10/14/24 10/15/24 10/16/24
06:59 06:59 06:59
Intake Total 1460 / 1460 1468 / 1468
Balance 1460 / 1460 1468 / 1468
Physical Exam
Physical Exam
HEENT: Other (icteric)
Cardiology: Normal Sinus Rhythm
Pulmonary: Clear
GI: Non Distended and Non Tender
Neuro: Other (non verbal)
[2024-10-15] MEDS: AQUAMEPHYTON 10 MG SC (11:46)
[2024-10-15 11:47] VITALS: BP 131/83
[2024-10-15 16:00] VITALS: BP 95/58
[2024-10-15 16:55] LABS: Soluble Liver Antigen Ab 3.3 U (0.0-24.9)
[2024-10-15] MEDS: ACETADOTE 1059.65 MG IV (17:11)
[2024-10-15] MEDS: ACETADOTE 1059.65 MEQ IV (17:11)
[2024-10-15] MEDS: LOVENOX 40 MG SC (17:11)
--- NOTE | 2024-10-15 18:33 | W.PN.UPDATE ---
Update Note
Progress Note Update
I s/w IR - we do not have the kit to do transjugular liver biopsy here in the hospital would need to be ordered and would take a few days.
Dr. Mccrary to d/w liver transplant tomorrow and family may need to be transferred if they would like to pursue.
[2024-10-15 19:14] VITALS: BP 118/75
[2024-10-15] MEDS: SENNA SYRUP 8.8 MG TUBE (20:10)
[2024-10-15] MEDS: MIRALAX TUBE (20:10)
[2024-10-15 23:43] VITALS: BP 114/69
--- NOTE | 2024-10-16 00:05 | PTCARENOTE ---
Tube feeding stopped as per order. Pt's mom aware.
--- NOTE | 2024-10-16 06:00 | W.PN.GI.CBS2 ---
Today's Communication / Plan
-
Please see assessment and plan for details.
Assessment / Plan
-
1. Elevated LFTs : In a marked necroinflammatory pattern, with coagulopathy, likely multifactorial, though LFTs have been continued to improve. All workup has been negative so far including labs and imaging, etc. except elevated Ig. Looking back,
she did have documented hypotension into the 70s on admission, and even though she does have chronic hypotension on midodrine low flow/shock liver is still a possible etiology, with malnutrition as a cause of her coagulopathy. While there is a
concern for possible autoimmune hepatitis and acute liver failure this does seem a bit less likely clinically, given improvement in LFTs and essentially normal LFTs previously, with normal autoimmune markers. I discussed with mother at length, will
await repeat labs and INR. If still concern for liver failure then possibly transfer for biopsy and further workup of possible autoimmune hepatitis where there could be an intervention that could change clinical course. Otherwise, we will continue
supportive care and trend for now. On NAC, due to and today.
Subjective
Subjective
Date of Service: October 16, 2024
No new events overnight per the mother, has been tolerating tube feeds, having bowel movements with help, no fevers or chills.
Objective
Data Reviewed
Laboratory Data:
Laboratory Results
PT 23.8 Sec (11.4-14.6) H 10/15/24 04:39
INR 2.11 10/15/24 04:39
Total Bilirubin 6.2 mg/dl (0.2-1.3) H 10/15/24 04:39
AST 752 U/L (14-36) H* 10/15/24 04:39
ALT 499 U/L (0-35) H 10/15/24 04:39
Alkaline Phosphatase 113 U/L (38-126) 10/15/24 04:39
Lipase 113 U/L (23-300) 10/09/24 08:25
Vital Signs and I&O:
Vital Signs
Temp Pulse Resp BP Pulse Ox
98.6 F 84 18 114/69 99
10/15/24 23:43 10/15/24 23:43 10/15/24 23:43 10/15/24 23:43 10/15/24 23:43
I&O
10/14/24 10/15/24 10/16/24
06:59 06:59 06:59
Intake Total 1460 / 1460 1468 / 1468 1458 / 1458
Balance 1460 / 1460 1468 / 1468 1458 / 1458
Physical Exam
Physical Exam
General: NAD
Abdomen: normal bowel sounds, soft, no tenderness, no masses or bruits, no ascites, minimal erythema around PEG tube site
[2024-10-16 06:32] LABS: Ammonia 13 umol/L (9-30); Lactic Acid 1.2 mmol/L (0.7-2.0)
[2024-10-16 06:32] LABS: PT 22.8 Sec (11.4-14.6)
[2024-10-16 06:33] LABS: Hemoglobin 10.2 g/dL (12.0-16.0); Mean Corp Hgb Conc. 32.9 g/dL (33.0-37.0); Mean Corpuscular Hgb 30.5 pg (27.0-31.0); Mean Corpuscular Volume 92.8 fL (81.0-99.0); Mean Platelet Volume 13.2 fL (7.4-10.4); Platelet Count 109 10^3/uL (130-400); Red Blood Cell Count 3.34 10^6/uL (4.20-5.40); Red Cell Dist. Width 16.3 % (11.5-14.5); White Blood Cell Count 5.4 10^3/uL (4.8-10.8)
[2024-10-16 07:11] LABS: ALT (SGPT) 411 U/L (0-35); AST (SGOT) 638 U/L (14-36); Albumin 1.9 g/dl (3.5-5.0); Alkaline Phosphatase 110 U/L (38-126); Blood Urea Nitrogen 17 mg/dl (7-17); Calcium 7.8 mg/dl (8.4-10.2); Carbon Dioxide 28 mmol/L (22-30); Chloride 104 mmol/L (98-107); Estimated Creatinine Clearance 86 ml/min; Glucose 71 mg/dl (70-99); Potassium 3.9 mmol/L (3.5-5.1); Sodium 137 mmol/L (135-145); Total Protein 4.9 g/dl (6.3-8.2); eGFR > 60.00
[2024-10-16 07:30] VITALS: BP 123/72
[2024-10-16 07:59] LABS: Absolute Neutrophils -Man Diff 2.3 10^3/uL (1.4-6.5); Band Neutrophils 5 % (0-3); Eosinophils 2 % (0-6); Lymphocytes 28 % (20-51); Monocytes 18 % (2-9); Segmented Neutrophils 39 % (42-75)
[2024-10-16 08:00] LABS: Atypical Lymphocytes 5 %; Myelocytes 2 % (-); Normal RBC Morphology Yes; Platelets Checked Yes; Total Cells Counted 100
[2024-10-16] MEDS: TRILEPTAL 600 MG TUBE ×2 (08:27→20:14)
[2024-10-16] MEDS: ONFI 10 MG TUBE ×2 (08:27→20:14)
[2024-10-16] MEDS: ProAmatine 15 MG TUBE ×2 (08:27→17:47)
[2024-10-16] MEDS: SINGULAIR 10 MG TUBE (08:27)
[2024-10-16] MEDS: MIRALAX 17 GRAMS TUBE ×2 (08:27→20:14)
[2024-10-16] MEDS: SENNA SYRUP 8.8 MG TUBE ×2 (08:27→20:14)
[2024-10-16] MEDS: DESENEX/MITRAZOL/ZEASORB 1 APPLIC TOPICAL ×2 (08:28→20:14)
[2024-10-16] MEDS: ERYTHROMYCIN 0.5% OPHTHALMIC OINTMENT 1 APPLIC OPHTH ×4 (08:28→20:15)
--- NOTE | 2024-10-16 14:21 | W.PN.HOSP.TC ---
Today's Communication/Plan
-
Tube Feeds restarted as no plans for liver biopsy per GI
Continue to trend LFTs -- improving but still high
Appreciate GI
Assessment / Plan
Assessment / Plan
Physical Exam
General: No Apparent Distress
Respiratory: Rhonchi bilaterally
Cardiac: Regular Rhythm and S1/S2
GI: Soft, Positive Bowel Sounds and Peg Tube
Neuro: Sleeping, at times opening her eyes
Psych: Calm
Assessment/Plan
48 F with cerebral palsy and frequent aspiration events now s/p PEG comes in with PEG malfunction where feeding was leaking from around PEG site. No vomiting. No diarrhea. Has been having regular bms. Found to have a UTI. Abdominal xray without
airfluid levels to suggest obstruction. Possible delayed emptying, ileus.
Tube feeding leakage likely secondary to severe constipation
- At home on (On Compleat 1.5 45ml/hr with 50 ml/hr water flush for 16 hours daily) .
- CW tube feeding which she seems to tolerance .
- GI following.
- Tube study was performed and Contrast instilled through the patient's indwelling PEG tube outlines the stomach and proximal small bowel, confirming placement.
Constipation
-Recommended to continue with Colace, senna and continue MiraLAX twice daily.
-Also will need additional medication regimen prn .
-Status post Enema.
-AXR with improvement in stool burden .
-With possible ileus on CT imaging, consulted surgery: per surgery team, patient does NOT have symptoms of small bowel obstruction and surgeon reviewed films personally -- there is questionable sigmoid narrowing; can consider Gastrograffin enema but
would hold off for now as patient has been having bowel movements
Nonspecific pulmonary parenchymal opacity on CT Abdomen Pelvis
-Consulted cardio who said no need for Diuretics (which patient could not tolerate anyway due to her hypotension), they mentioned based on chart review no need for cardiology consult at this time
-Can consider echocardiogram and/or CXR
-Consulted pulm who mentioned opacities on chest imaging are chronic, they will come and go with aspiration
-CXR on 10/13/24: as per radiologist's report, showed: 'Low lung volumes with diffuse interstitial opacification and bibasilar opacities which may represent multifocal pneumonia or mild edema/atelectasis.'
Abnormal LFTs acute cholecystic hepatitis picture noted with elevated bilirubin and transaminitis.
Concern for Acute Liver Failure
Persistent Elevated LFTs
High INR
-Hypotension possibly contributed to LFTs increase, less likely from autoimmune process
-Since patient's mental status is difficult to assess, have checked ammonia and lactic acid which are normal (this is a way to monitor for encephalopathy through bloodwork)
-Acute liver failure workup as per GI work up ordered (viral, autoimmune, hepatitis, Pillo's, A1AT, herediatry hemochromatosis, tylenol, CMV, EBV, HSV) majority pending, IgG high other immunoglobulins normal, ferritin 822 but acute phase reactant
does
have high iron sat 69% -- HFE gene sent to check for hemochromatosis
-I spoke on 10/12/24 via [place] [employer] with Dr. Anand (business services sales representative) who mentioned she is doing a full liver workup and Dr[facility]
-Workup so far negative, except elevated Ig
-No prior history of biliary disease according to the father
-Per Dr. Anand, no need for Flagyl since biliary is not the source
-Ammonia and lactic acid are normal, which is reassuring (if these were high, she would need to be transferred emergently)
-Continue N-acetylcysteine drip per [facility] protocol, as per gastroenterology -- continue through today
-Vitamin K was ordered (besides liver, malnutrition could be increasing the INR) -- subq (because poor iv access and pt cannot take po) was ordered on 10/12/24, another dose of Vitamin K ordered for 10/15/24 given due to slight
increase in INR
-Daily MELD labs
-No liver biopsy at this time, continue to monitor LFTs
Thrombocytopenia
-Possibly secondary to recent infection +/- drug induced from antibiotics
-Appreciate hematology evaluation and recommendations
-Okay to continue DVT prophylaxis with Lovenox
Pseudomonas UTI
-Followed-up on the susceptibility results.
-Received Cefepime for ~5 days (start date was 10/08/24)
Chronic Hypotension
- Mostly of the systolics are in 90s at home too per patient's father
- Continue with midodrine
Seizure Disorder
- Continue clobazam and oxcarbazepine
Cerebral palsy with functional quadriplegia
Chronic dysphagia status post PEG tube
Chronic hypotension with midodrine
History of ovarian cancer status post surgery
DVT Prophylaxis: Lovenox subq
Code status - Full Code
d/w with patient's mother
Anticipated Discharge: > 48 hours
Subjective/Interval History
-
Date of Service: October 16, 2024
Patient was seen and examined. No new events or complaints were reported.
Objective Data
-
Labs:
Laboratory Results
10/16/24 10/16/24
06:01 06:02
WBC 5.4
Hgb 10.2 L
Hct 31.0 L
Plt Count 109 L
PT 22.8 H
INR 2.00
Sodium 137
Potassium 3.9
Chloride 104
Carbon Dioxide 28
BUN 17
Creatinine 0.5 L
Glucose 71
Calcium 7.8 L
Total Bilirubin 7.0 H
AST 638 H*
ALT 411 H
Alkaline Phosphatase 110
Vital Signs:
Vital Signs
Temp Pulse Resp BP Pulse Ox
98.3 F 89 16 123/72 95
10/16/24 07:30 10/16/24 07:30 10/16/24 07:30 10/16/24 08:27 10/16/24 10:23
I&O
10/15/24 10/16/24 10/17/24
06:59 06:59 06:59
Intake Total 1468 / 1468 1458 / 1458
Balance 1468 / 1468 1458 / 1458
--- NOTE | 2024-10-16 14:49 | CM ---
Monitor labs, tube feeds to be restarted.
Plan: Discharge to home with [facility] once medically stable.
[2024-10-16 15:20] VITALS: BP 122/71
[2024-10-16 15:33] LABS: Hepatitis B Core Ab, IgM Negative (Negative)
[2024-10-16 16:12] VITALS: BP 122/71
[2024-10-16] MEDS: LOVENOX 40 MG SC (17:47)
[2024-10-16 19:09] VITALS: BP 118/75
[2024-10-16 23:19] VITALS: BP 101/60
[2024-10-17 03:27] VITALS: BP 121/72
--- NOTE | 2024-10-17 06:42 | W.PN.GI.CBS2 ---
Today's Communication / Plan
-
Please see assessment and plan for details.
Assessment / Plan
-
1. Elevated LFTs : In a marked necroinflammatory pattern, with coagulopathy, likely multifactorial, though LFTs have been continued to improve. All workup has been negative so far including labs and imaging, etc. except elevated Ig. Looking back,
she did have documented hypotension into the 70s on admission, and even though she does have chronic hypotension on midodrine low flow/shock liver is still a possible etiology, with malnutrition as a cause of her coagulopathy. While there is a
concern for possible autoimmune hepatitis and acute liver failure this does seem a bit less likely clinically, given improvement in LFTs and essentially normal LFTs previously, with normal autoimmune markers. Will continue to trend labs, though
again have been consistently improving. If they continue to improve then possible DC in the next 24 hours with close outpatient follow-up. She is status post a course of N-acetylcysteine.
Subjective
Subjective
Date of Service: October 17, 2024
No new events overnight, no fever, chills, nausea or vomiting, tolerating tube feeds.
Objective
Data Reviewed
Laboratory Data:
Laboratory Results
PT 22.8 Sec (11.4-14.6) H 10/16/24 06:01
INR 2.00 10/16/24 06:01
Total Bilirubin 7.0 mg/dl (0.2-1.3) H 10/16/24 06:02
AST 638 U/L (14-36) H* 10/16/24 06:02
ALT 411 U/L (0-35) H 10/16/24 06:02
Alkaline Phosphatase 110 U/L (38-126) 10/16/24 06:02
Lipase 113 U/L (23-300) 10/09/24 08:25
Vital Signs and I&O:
Vital Signs
Temp Pulse Resp BP Pulse Ox
99.0 F 92 15 121/72 100
10/17/24 03:27 10/17/24 03:27 10/17/24 03:27 10/17/24 03:27 10/17/24 03:27
I&O
10/15/24 10/16/24 10/17/24
06:59 06:59 06:59
Intake Total 1468 / 1468 1458 / 1458 580 / 580
Balance 1468 / 1468 1458 / 1458 580 / 580
Physical Exam
Physical Exam
General: NAD, arousable, jaundice
Abdomen: normal bowel sounds, soft, no tenderness, no masses or bruits, no ascites, PEG tube in place
[2024-10-17 07:30] VITALS: BP 102/67
[2024-10-17] MEDS: TRILEPTAL 600 MG TUBE ×2 (08:06→20:50)
[2024-10-17] MEDS: ERYTHROMYCIN 0.5% OPHTHALMIC OINTMENT 1 APPLIC OPHTH (08:07)
[2024-10-17] MEDS: ONFI 10 MG TUBE ×2 (08:07→20:50)
[2024-10-17] MEDS: ProAmatine 15 MG TUBE ×2 (08:07→17:08)
[2024-10-17] MEDS: DESENEX/MITRAZOL/ZEASORB 1 APPLIC TOPICAL ×2 (08:07→20:49)
[2024-10-17] MEDS: SINGULAIR 10 MG TUBE (08:07)
[2024-10-17] MEDS: SENNA SYRUP 8.8 MG TUBE ×2 (08:07→20:50)
[2024-10-17] MEDS: MIRALAX 17 GRAMS TUBE ×2 (08:07→20:50)
[2024-10-17 08:47] LABS: INR 1.87; PT 21.7 Sec (11.4-14.6)
[2024-10-17 09:01] LABS: Hematocrit 33.4 % (37.0-47.0); Hemoglobin 11.3 g/dL (12.0-16.0); Mean Corp Hgb Conc. 33.8 g/dL (33.0-37.0); Mean Corpuscular Volume 91.8 fL (81.0-99.0); Mean Platelet Volume 13.3 fL (7.4-10.4); Platelet Count 127 10^3/uL (130-400); Red Blood Cell Count 3.64 10^6/uL (4.20-5.40); Red Cell Dist. Width 16.9 % (11.5-14.5); White Blood Cell Count 5.5 10^3/uL (4.8-10.8)
[2024-10-17 09:28] LABS: ALT (SGPT) 419 U/L (0-35); AST (SGOT) 673 U/L (14-36); Albumin 2.1 g/dl (3.5-5.0); Alkaline Phosphatase 139 U/L (38-126); Blood Urea Nitrogen 20 mg/dl (7-17); Calcium 7.8 mg/dl (8.4-10.2); Carbon Dioxide 29 mmol/L (22-30); Chloride 102 mmol/L (98-107); Direct Bilirubin 6.5 mg/dl (0.0-0.4); Estimated Creatinine Clearance 86 ml/min; Glucose 124 mg/dl (70-99); Potassium 4.1 mmol/L (3.5-5.1); Sodium 135 mmol/L (135-145); Total Bilirubin 7.6 mg/dl (0.2-1.3); Total Protein 5.3 g/dl (6.3-8.2); eGFR > 60.00
[2024-10-17 11:05] VITALS: BP 144/79
--- NOTE | 2024-10-17 11:39 | CM ---
Reviewed the chart notes. TF resumed. Updated clinicals sent via [facility] to [facility]. CM continues to be available to patient/family and is monitoring medical plan for needs at discharge.
Plan: Discharge to home with [facility] services.
--- NOTE | 2024-10-17 16:08 | W.PN.HOSP.TC ---
Today's Communication/Plan
-
Trends LFTs, monitor for improvement
Continue tube feeds
Assessment / Plan
Assessment / Plan
Physical Exam
General: No Apparent Distress
Respiratory: Rhonchi bilaterally
Cardiac: Regular Rhythm and S1/S2
GI: Soft, Positive Bowel Sounds and Peg Tube
Neuro: Sleeping, at times opening her eyes
Psych: Calm
Assessment/Plan
48 F with cerebral palsy and frequent aspiration events now s/p PEG comes in with PEG malfunction where feeding was leaking from around PEG site. No vomiting. No diarrhea. Has been having regular bms. Found to have a UTI. Abdominal xray without
airfluid levels to suggest obstruction. Possible delayed emptying, ileus.
Tube feeding leakage likely secondary to severe constipation
- At home on (On Compleat 1.5 45ml/hr with 50 ml/hr water flush for 16 hours daily) .
- CW tube feeding which she seems to tolerance .
- GI following.
- Tube study was performed and Contrast instilled through the patient's indwelling PEG tube outlines the stomach and proximal small bowel, confirming placement.
Constipation
-Recommended to continue with Colace, senna and continue MiraLAX twice daily.
-Also will need additional medication regimen prn .
-Status post Enema.
-AXR with improvement in stool burden .
-With possible ileus on CT imaging, consulted surgery: per surgery team, patient does NOT have symptoms of small bowel obstruction and surgeon reviewed films personally -- there is questionable sigmoid narrowing; can consider Gastrograffin enema but
would hold off for now as patient has been having bowel movements
Nonspecific pulmonary parenchymal opacity on CT Abdomen Pelvis
-Consulted cardio who said no need for Diuretics (which patient could not tolerate anyway due to her hypotension), they mentioned based on chart review no need for cardiology consult at this time
-Can consider echocardiogram and/or CXR
-Consulted pulm who mentioned opacities on chest imaging are chronic, they will come and go with aspiration
-CXR on 10/13/24: as per radiologist's report, showed: 'Low lung volumes with diffuse interstitial opacification and bibasilar opacities which may represent multifocal pneumonia or mild edema/atelectasis.'
Abnormal LFTs acute cholecystic hepatitis picture noted with elevated bilirubin and transaminitis.
Concern for Acute Liver Failure
Persistent Elevated LFTs
High INR
-Hypotension possibly contributed to LFTs increase, less likely from autoimmune process
-Since patient's mental status is difficult to assess, have checked ammonia and lactic acid which are normal (this is a way to monitor for encephalopathy through bloodwork)
-Acute liver failure workup as per GI work up ordered (viral, autoimmune, hepatitis, Pillo's, A1AT, herediatry hemochromatosis, tylenol, CMV, EBV, HSV) majority pending, IgG high other immunoglobulins normal, ferritin 822 but acute phase reactant
does
have high iron sat 69% -- HFE gene sent to check for hemochromatosis
-I spoke on 10/12/[address] [place] [employer] with Dr. Anand (economic analyst) who mentioned she is doing a full liver workup and Dr[facility]
-Workup so far negative, except elevated Ig
-No prior history of biliary disease according to the father
-Per Dr. Anand, no need for Flagyl since biliary is not the source
-Ammonia and lactic acid are normal, which is reassuring (if these were high, she would need to be transferred emergently)
-Continue N-acetylcysteine drip per INDIRA protocol, as per gastroenterology -- continue through today
-Vitamin K was ordered (besides liver, malnutrition could be increasing the INR) -- subq (because poor iv access and pt cannot take po) was ordered on 10/12/24, another dose of Vitamin K ordered for 10/15/24 given due to slight
increase in INR
-Daily MELD labs
-No liver biopsy at this time, continue to monitor LFTs
Thrombocytopenia
-Possibly secondary to recent infection +/- drug induced from antibiotics
-Appreciate hematology evaluation and recommendations
-Okay to continue DVT prophylaxis with Lovenox
Pseudomonas UTI
-Followed-up on the susceptibility results.
-Received Cefepime for ~5 days (start date was 10/08/24)
Chronic Hypotension
- Mostly of the systolics are in 90s at home too per patient's father
- Continue with midodrine
Seizure Disorder
- Continue clobazam and oxcarbazepine
Cerebral palsy with functional quadriplegia
Chronic dysphagia status post PEG tube
Chronic hypotension with midodrine
History of ovarian cancer status post surgery
DVT Prophylaxis: Lovenox subq
Code status - Full Code
Discussed with patient's father
Anticipated Discharge: > 48 hours
Subjective/Interval History
-
Date of Service: October 17, 2024
Patient was seen and examined. No new events or complaints.
Objective Data
-
Labs:
Laboratory Results
10/17/24 10/17/24
08:21 09:52
WBC 5.5 Cancelled
Hgb 11.3 L Cancelled
Hct 33.4 L Cancelled
Plt Count 127 L Cancelled
PT 21.7 H
INR 1.87
Sodium 135
Potassium 4.1
Chloride 102
Carbon Dioxide 29
BUN 20 H
Creatinine 0.6
Glucose 124 H
Calcium 7.8 L
Total Bilirubin 7.6 H
AST 673 H*
ALT 419 H
Alkaline Phosphatase 139 H
Vital Signs:
Vital Signs
Temp Pulse Resp BP Pulse Ox
98.3 F 83 16 144/79 96
10/17/24 11:05 10/17/24 11:05 10/17/24 11:05 10/17/24 11:05 10/17/24 11:05
I&O
10/16/24 10/17/24 10/18/24
06:59 06:59 06:59
Intake Total 1458 / 1458 580 / 580
Output Total 450 / 450
Balance 1458 / 1458 130 / 130
[2024-10-17 16:31] VITALS: BP 114/68
[2024-10-17] MEDS: LOVENOX 40 MG SC (17:07)
[2024-10-17 19:13] VITALS: BP 115/71
[2024-10-17 23:16] VITALS: BP 104/63
[2024-10-18 03:15] VITALS: BP 113/71
[2024-10-18 06:35] LABS: INR 1.84; PT 21.4 Sec (11.4-14.6)
[2024-10-18 06:49] LABS: Ammonia 34 umol/L (9-30)
[2024-10-18 06:59] LABS: ALT (SGPT) 374 U/L (0-35); AST (SGOT) 639 U/L (14-36); Albumin 2.1 g/dl (3.5-5.0); Alkaline Phosphatase 134 U/L (38-126); Blood Urea Nitrogen 23 mg/dl (7-17); Calcium 7.9 mg/dl (8.4-10.2); Carbon Dioxide 31 mmol/L (22-30); Chloride 102 mmol/L (98-107); Direct Bilirubin 6.8 mg/dl (0.0-0.4); Estimated Creatinine Clearance 86 ml/min; Glucose 125 mg/dl (70-99); Potassium 4.1 mmol/L (3.5-5.1); Sodium 136 mmol/L (135-145); Total Bilirubin 7.9 mg/dl (0.2-1.3); Total Protein 5.2 g/dl (6.3-8.2); eGFR > 60.00
--- NOTE | 2024-10-18 07:00 | W.PN.GI.CBS2 ---
Today's Communication / Plan
-
Please see assessment and plan for details.
Assessment / Plan
-
1. Elevated LFTs : In a marked necroinflammatory pattern, with coagulopathy, likely multifactorial, though LFTs have been continued to improve. All workup has been negative so far including labs and imaging, etc. except elevated Ig. Looking back,
she did have documented hypotension into the 70s on admission, and even though she does have chronic hypotension on midodrine low flow/shock liver is still a possible etiology, with malnutrition as a cause of her coagulopathy. While there is a
concern for possible autoimmune hepatitis and acute liver failure this does seem a bit less likely clinically, given improvement in LFTs and essentially normal LFTs previously, with normal autoimmune markers. Will continue to trend labs, though
again have been consistently improving. If they continue to improve then possible DC in the next 24 hours with close outpatient follow-up. She is status post a course of N-acetylcysteine. Her ammonia level is slightly higher today, though her
mental status actually seems improved. Will continue to trend for now.
Subjective
Subjective
Date of Service: October 18, 2024
No new events overnight, no significant abdominal pain, fever or chills. Is more alert this morning, mental status still not at baseline per mother.
Objective
Data Reviewed
Laboratory Data:
Laboratory Results
10/17/24 09:52
10/18/24 06:06
Laboratory Results
PT 21.4 Sec (11.4-14.6) H 10/18/24 06:06
INR 1.84 10/18/24 06:06
Total Bilirubin 7.9 mg/dl (0.2-1.3) H 10/18/24 06:06
AST 639 U/L (14-36) H* 10/18/24 06:06
ALT 374 U/L (0-35) H 10/18/24 06:06
Alkaline Phosphatase 134 U/L (38-126) H 10/18/24 06:06
Lipase 113 U/L (23-300) 10/09/24 08:25
Vital Signs and I&O:
Vital Signs
Temp Pulse Resp BP Pulse Ox
99.7 F 95 17 113/71 97
10/18/24 03:15 10/18/24 03:15 10/18/24 03:15 10/18/24 03:15 10/18/24 03:15
I&O
10/17/24 10/18/24 10/19/24
06:59 06:59 06:59
Intake Total 580 / 580 1655 / 1655
Output Total 450 / 450 300 / 300
Balance 130 / 130 1355 / 1355
Physical Exam
Physical Exam
General: NAD, jaundice
Abdomen: normal bowel sounds, soft, no tenderness, no masses or bruits, no ascites, PEG site clean, dry and intact
[2024-10-18] MEDS: DESENEX/MITRAZOL/ZEASORB 1 APPLIC TOPICAL ×2 (07:49→21:01)
[2024-10-18] MEDS: TRILEPTAL 600 MG TUBE ×2 (07:49→21:00)
[2024-10-18] MEDS: SENNA SYRUP 8.8 MG TUBE ×2 (07:49→21:00)
[2024-10-18] MEDS: SINGULAIR 10 MG TUBE (07:49)
[2024-10-18] MEDS: ProAmatine 15 MG TUBE ×2 (07:49→17:32)
[2024-10-18] MEDS: ONFI 10 MG TUBE ×2 (07:49→21:01)
[2024-10-18] MEDS: MIRALAX 17 GRAMS TUBE ×2 (07:49→20:59)
--- NOTE | 2024-10-18 08:17 | W.PN.HOSP.TC ---
Today's Communication/Plan
-
Continue tube feeds
AST and ALT improving, continue to monitor
Assessment / Plan
Assessment / Plan
Physical Exam
General: No Apparent Distress
Respiratory: Rhonchi bilaterally
Cardiac: Regular Rhythm and S1/S2
GI: Soft, Positive Bowel Sounds and Peg Tube
Neuro: Sleeping, at times opening her eyes
Psych: Calm
Assessment/Plan
48 F with cerebral palsy and frequent aspiration events now s/p PEG comes in with PEG malfunction where feeding was leaking from around PEG site. No vomiting. No diarrhea. Has been having regular bms. Found to have a UTI. Abdominal xray without
airfluid levels to suggest obstruction. Possible delayed emptying, ileus.
Tube feeding leakage likely secondary to severe constipation
- At home on (On Compleat 1.5 45ml/hr with 50 ml/hr water flush for 16 hours daily) .
- CW tube feeding which she seems to tolerance .
- GI following.
- Tube study was performed and Contrast instilled through the patient's indwelling PEG tube outlines the stomach and proximal small bowel, confirming placement.
Constipation
-Recommended to continue with Colace, senna and continue MiraLAX twice daily.
-Also will need additional medication regimen prn .
-Status post Enema.
-AXR with improvement in stool burden .
-With possible ileus on CT imaging, consulted surgery: per surgery team, patient does NOT have symptoms of small bowel obstruction and surgeon reviewed films personally -- there is questionable sigmoid narrowing; can consider Gastrograffin enema but
would hold off for now as patient has been having bowel movements
Nonspecific pulmonary parenchymal opacity on CT Abdomen Pelvis
-Consulted cardio who said no need for Diuretics (which patient could not tolerate anyway due to her hypotension), they mentioned based on chart review no need for cardiology consult at this time
-Can consider echocardiogram and/or CXR
-Consulted pulm who mentioned opacities on chest imaging are chronic, they will come and go with aspiration
-CXR on 10/13/24: as per radiologist's report, showed: 'Low lung volumes with diffuse interstitial opacification and bibasilar opacities which may represent multifocal pneumonia or mild edema/atelectasis.'
Abnormal LFTs acute cholecystic hepatitis picture noted with elevated bilirubin and transaminitis.
Concern for Acute Liver Failure
Persistent Elevated LFTs
High INR
-Hypotension possibly contributed to LFTs increase, less likely from autoimmune process
-Since patient's mental status is difficult to assess, have checked ammonia and lactic acid which are normal (this is a way to monitor for encephalopathy through bloodwork)
-Acute liver failure workup as per GI work up ordered (viral, autoimmune, hepatitis, Pillo's, A1AT, herediatry hemochromatosis, tylenol, CMV, EBV, HSV) majority pending, IgG high other immunoglobulins normal, ferritin 822 but acute phase reactant
does
have high iron sat 69% -- HFE gene sent to check for hemochromatosis
-I spoke on 10/12/[address] [place] Text [address] Anand (surgical services director) who mentioned she is doing a full liver workup and Dr. Anand spoke with liver transplant [facility], Dr. Jacinto
-Workup so far negative, except elevated Ig
-No prior history of biliary disease according to the father
-Per Dr. Anand, no need for Flagyl since biliary is not the source
-Ammonia and lactic acid are normal, which is reassuring (if these were high, she would need to be transferred emergently)
-Completed N-acetylcysteine drip per [facility] protocol, as per gastroenterology
-Vitamin K was ordered (besides liver, malnutrition could be increasing the INR) -- subq (because poor iv access and pt cannot take po) was ordered on 10/12/24, another dose of Vitamin K ordered for 10/15/24 given due to slight
increase in INR
-Daily MELD labs
-No liver biopsy at this time, continue to monitor LFTs
Thrombocytopenia
-Possibly secondary to recent infection +/- drug induced from antibiotics
-Appreciate hematology evaluation and recommendations
-Okay to continue DVT prophylaxis with Lovenox
Pseudomonas UTI
-Followed-up on the susceptibility results.
-Received Cefepime for ~5 days (start date was 10/08/24)
Vaginal Discharge
-Diflucan will not be a good idea given elevated liver function tests AST and ALT
-Consulted gynecology, appreciate their evaluation and recommendations
Chronic Hypotension
- Mostly of the systolics are in 90s at home too per patient's father
- Continue with midodrine
Seizure Disorder
- Continue clobazam and oxcarbazepine
Cerebral palsy with functional quadriplegia
Chronic dysphagia status post PEG tube
Chronic hypotension with midodrine
History of ovarian cancer status post surgery
DVT Prophylaxis: Lovenox subq
Code status - Full Code
Discussed with patient's mother
Anticipated Discharge: > 48 hours
Subjective/Interval History
-
Date of Service: October 18, 2024
Patient was seen and examined. No new significant symptoms or complaints.
Objective Data
-
Labs:
Laboratory Results
10/18/24
06:06
PT 21.4 H
INR 1.84
Sodium 136
Potassium 4.1
Chloride 102
Carbon Dioxide 31 H
BUN 23 H
Creatinine 0.5 L
Glucose 125 H
Calcium 7.9 L
Total Bilirubin 7.9 H
AST 639 H*
ALT 374 H
Alkaline Phosphatase 134 H
Vital Signs:
Vital Signs
Temp Pulse Resp BP Pulse Ox
99.7 F 95 17 113/71 97
10/18/24 03:15 10/18/24 03:15 10/18/24 03:15 10/18/24 03:15 10/18/24 03:15
I&O
10/17/24 10/18/24 10/19/24
06:59 06:59 06:59
Intake Total 580 / 580 1655 / 1655 840 / 840
Output Total 450 / 450 300 / 300
Balance 130 / 130 1355 / 1355 840 / 840
[2024-10-18 08:37] VITALS: BP 107/59
[2024-10-18 12:04] VITALS: BP 102/64
--- NOTE | 2024-10-18 12:45 | CM ---
Reviewed the chart notes. Tolerating tube feeds. CM continues to be available to patient/family and is monitoring medical plan for needs at discharge.
Plan: Discharge to home with [facility] services.
[2024-10-18 15:20] VITALS: BP 107/66
[2024-10-18] MEDS: LOVENOX 40 MG SC (17:32)
--- NOTE | 2024-10-18 18:16 | CON.MD ---
Addendum entered and electronically signed by Cassy Carranza DO 10/18/24 19:19:
Patient was seen and examined along with the resident. Agree with consult note with minor modifications made for clarity.
Will sign-off at this time, but please feel free to contact [employer] with any further questions/concerns.
Tej Carranza DO
Original Note:
Documented by User: Anant Reis MD, Resident 10/18/24 18:50
Consultation - Medical
-
History of present illness
Ciera Orantes, 48-year-old female with a history significant for ovarian cancer s/p total hysterectomy and oophorectomy 2018, cerebral palsy with non-verbal status and seizure disorder, presented to the emergency on 10-06-24 with issues with her
feeding tube. Lives with parents without a medical care-quencher operator. She was also found to have a UTI and started on antibiotics. LFTs checked on 10-08-24 noted significant elevation with suspicion for acute hepatic failure. Imaging has been unremarkable
and work-up within normal limits for specific etiology. LFTs now down-trending.
The patient intermittently retains urine and has been using diapers for years. During this admission, she has had to be straight-cathed a few times. While getting straight-cath overnight, she was reported to have redness, swelling and discharge
around the area on 10-17-24. Gynecology was consulted for further evaluation. The patient has remained afebrile with stable vitals. In remission for the ovarian cancer as per their last appointment with outpatient copy and print associate/onc. No recent or recurrent
history of vaginal infections reported according to her parents.
PMH: cerebral palsy, non-verbal at baseline, seizure disorder, chronic dysphagia status-post PEG tube, chronic constipation, intermittent urinary retention, ovarian cancer in remission, chronic hypotension.
PSH: total hysterectomy with oophorectomy.
SH: Unable to obtain due to patient non-verbal and completely care-quencher operator dependent.
FM: Not pertinent.
Allergies
Allergy/AdvReac Type Severity Reaction Status Date / Time
brompheniramine Allergy hyper Verified 10/06/24 21:11
[From Dimetapp Cold-Allergy
(PE)]
cephalexin [From Keflex] Allergy Unknown Verified 10/06/24 21:11
chloral hydrate Allergy hyper Verified 10/06/24 21:11
diphenhydramine Allergy hyper Verified 10/06/24 21:11
[From Benadryl]
latex Allergy Swelling Verified 10/06/24 21:11
levofloxacin Allergy Unknown Verified 10/06/24 21:11
phenobarbital Allergy hyper Verified 10/06/24 21:11
phenylephrine Allergy hyper Verified 10/06/24 21:11
[From Dimetapp Cold-Allergy
(PE)]
phenytoin [From Dilantin] Allergy Rash Verified 10/06/24 21:11
Sulfa (Sulfonamide Allergy Hives Verified 10/06/24 21:11
Antibiotics)
topiramate [From Topamax] Allergy Rash Verified 10/06/24 21:11
Home Medications
fluticasone propionate 50 mcg/actuation nasal spray,suspension 2 spray intranasal HS Allergies 03/17/24
clobazam 10 mg tablet 10 mg feeding tube BID #60 tabs 04/21/24
oxcarbazepine 300 mg tablet 600 mg (2 x 300 mg) feeding tube BID #120 tabs 04/21/24
polyethylene glycol 3350 17 gram oral powder packet (HealthyLax) 17 g feeding tube DAILYPRN PRN constipation #100 ea 04/21/24
Probiotic 1 cap feeding tube DAILY 06/12/24
ascorbic acid (vitamin C) 500 mg tablet (Vitamin C) 500 mg feeding tube HS Supplement 06/12/24
docusate sodium 50 mg/5 mL oral liquid 50 mg feeding tube BID Constipation 06/12/24
midodrine 5 mg tablet 15 mg feeding tube BID 06/12/24
montelukast 10 mg tablet 10 mg feeding tube DAILY Lung/Breathing Issues 06/12/24
sennosides 8.8 mg/5 mL oral syrup 8.8 mg feeding tube DAILY Constipation 06/12/24
Review of symptoms
Unable to obtain per above.
Physical exam
Gen: Comfortable
CVS: S1-S2 normal; no rubs or murmur
Resp: Clear
Abd: soft, non-tender
Pelvic: mild vaginal atrophy; negative for discharge, blood, erythema, edema or irritation
Neuro: non-verbal
Psy: Calm
Assessment and plan
Age-related vaginal changes
- Normal vaginal exam with no evidence of an active infection or inflammation.
- Will swab for james, BV, trich, GC and chlamydia.
- While obtaining the swab, patient voided herself, hence there is increased chances of contamination.
- Can use a barrier ointment such as Desitin with diaper application to minimize irritation.
- No antimicrobials or other pharmacotherapy indicated at this time.
- Gynecology will sign off; please reach out/re-consult if necessary.

Documented by User: Cassy Carranza, 10/18/24 19:17
Consultation - Medical
-
History of present illness
Ciera Orantes, 48-year-old female with a history significant for ovarian cancer s/p total hysterectomy and b/l oophorectomy 2018, cerebral palsy with non-verbal status and seizure disorder, presented to the emergency on 10-06-24 with issues with
her feeding tube. Lives with parents without a medical care-quencher operator. She was also found to have a UTI and just completed 4 day course of antibiotics. LFTs checked on 10-08-24 noted significant elevation with suspicion for acute hepatic failure.
Imaging has been unremarkable and work-up within normal limits for specific etiology. LFTs now down-trending.
The patient intermittently retains urine and has been using diapers for years. During this admission, she has had to be straight-cathed a few times. While getting straight-cath overnight, she was reported to have redness, swelling and discharge
around the area by the RN on 10-17-24. Of note, her RN today did not note any abnormalities/discharge and her parents who usually care for her have not noted any redness/discharge. Gynecology was consulted for further evaluation. The patient has
remained afebrile with stable vitals. In remission for the ovarian cancer as per their last appointment with outpatient copy and print associate/onc. No recent or recurrent history of vaginal infections reported according to her parents.
PMH: cerebral palsy, non-verbal at baseline, seizure disorder, chronic dysphagia status-post PEG tube, chronic constipation, intermittent urinary retention, ovarian cancer in remission, chronic hypotension.
PSH: total hysterectomy with oophorectomy.
SH: Unable to obtain due to patient non-verbal and completely care-quencher operator dependent.
FM: Not pertinent.
Allergies
Allergy/AdvReac Type Severity Reaction Status Date / Time
brompheniramine Allergy hyper Verified 10/06/24 21:11
[From Dimetapp Cold-Allergy
(PE)]
cephalexin [From Keflex] Allergy Unknown Verified 10/06/24 21:11
chloral hydrate Allergy hyper Verified 10/06/24 21:11
diphenhydramine Allergy hyper Verified 10/06/24 21:11
[From Benadryl]
latex Allergy Swelling Verified 10/06/24 21:11
levofloxacin Allergy Unknown Verified 10/06/24 21:11
phenobarbital Allergy hyper Verified 10/06/24 21:11
phenylephrine Allergy hyper Verified 10/06/24 21:11
[From Dimetapp Cold-Allergy
(PE)]
phenytoin [From Dilantin] Allergy Rash Verified 10/06/24 21:11
Sulfa (Sulfonamide Allergy Hives Verified 10/06/24 21:11
Antibiotics)
topiramate [From Topamax] Allergy Rash Verified 10/06/24 21:11
Home Medications
fluticasone propionate 50 mcg/actuation nasal spray,suspension 2 spray intranasal HS Allergies 03/17/24
clobazam 10 mg tablet 10 mg feeding tube BID #60 tabs 04/21/24
oxcarbazepine 300 mg tablet 600 mg (2 x 300 mg) feeding tube BID #120 tabs 04/21/24
polyethylene glycol 3350 17 gram oral powder packet (HealthyLax) 17 g feeding tube DAILYPRN PRN constipation #100 ea 04/21/24
Probiotic 1 cap feeding tube DAILY 06/12/24
ascorbic acid (vitamin C) 500 mg tablet (Vitamin C) 500 mg feeding tube HS Supplement 06/12/24
docusate sodium 50 mg/5 mL oral liquid 50 mg feeding tube BID Constipation 06/12/24
midodrine 5 mg tablet 15 mg feeding tube BID 06/12/24
montelukast 10 mg tablet 10 mg feeding tube DAILY Lung/Breathing Issues 06/12/24
sennosides 8.8 mg/5 mL oral syrup 8.8 mg feeding tube DAILY Constipation 06/12/24
Review of symptoms
Unable to obtain per above.
Physical exam
Gen: Comfortable
CVS: S1-S2 normal; no rubs or murmur
Resp: Clear
Abd: soft, non-tender
Pelvic: limited exam due to lack of proper [employer] bed and patient's level of consciousness- external genitalia with mild vaginal atrophy; negative for discharge, blood, erythema, edema or irritation (SSE was not completed). Vaginal swabs obtained for
candidiasis culture, BV/trich and GC/CT (though patient was voiding during exam and may have contaminated specimen)
Neuro: non-verbal
Psy: Calm
Exam was done with RN present at bedside
Assessment and plan
Atrophic Vaginal Changes
- Normal vaginal exam with no evidence of an active infection or inflammation.
- Will send swabs for james, BV, trich, GC and chlamydia.
- While obtaining the swab, patient voided herself, hence there is increased chances of contamination.
- Can use a barrier ointment such as Desitin with diaper application to minimize irritation.
- No antimicrobials or other pharmacotherapy indicated at this time.
- Gynecology will sign off; please reach out/re-consult if necessary.
[2024-10-18 18:55] LABS: Herpes Virus 6 (HHV-6) Ab, IgG 1:10
[2024-10-18 19:18] VITALS: BP 115/78
[2024-10-18 23:31] VITALS: BP 114/73
[2024-10-19] VITALS (7 sets, daily range): BP systolic 102–133; BP diastolic 63–85
[2024-10-19 04:40] LABS: INR 1.79; PT 21.3 Sec (11.4-14.6)
[2024-10-19 04:49] LABS: Ammonia 39 umol/L (9-30)
[2024-10-19 04:56] LABS: ALT (SGPT) 324 U/L (0-35); AST (SGOT) 584 U/L (14-36); Albumin 2.1 g/dl (3.5-5.0); Alkaline Phosphatase 128 U/L (38-126); Blood Urea Nitrogen 22 mg/dl (7-17); Calcium 7.7 mg/dl (8.4-10.2); Carbon Dioxide 31 mmol/L (22-30); Chloride 102 mmol/L (98-107); Direct Bilirubin 7.2 mg/dl (0.0-0.4); Estimated Creatinine Clearance 86 ml/min; Glucose 122 mg/dl (70-99); Potassium 3.9 mmol/L (3.5-5.1); Sodium 137 mmol/L (135-145); Total Bilirubin 8.4 mg/dl (0.2-1.3); Total Protein 5.3 g/dl (6.3-8.2); eGFR > 60.00
[2024-10-19 05:35] LABS: Hematocrit 33.3 % (37.0-47.0); Hemoglobin 11.2 g/dL (12.0-16.0); Mean Corp Hgb Conc. 33.6 g/dL (33.0-37.0); Mean Corpuscular Hgb 30.8 pg (27.0-31.0); Mean Corpuscular Volume 91.5 fL (81.0-99.0); Mean Platelet Volume 13.4 fL (7.4-10.4); Platelet Count 152 10^3/uL (130-400); Red Blood Cell Count 3.64 10^6/uL (4.20-5.40); White Blood Cell Count 6.4 10^3/uL (4.8-10.8)
--- NOTE | 2024-10-19 06:17 | W.PN.GI.CBS2 ---
Today's Communication / Plan
-
Please see assessment and plan for details.
Assessment / Plan
-
1. Elevated LFTs : In a marked necroinflammatory pattern, with coagulopathy, likely multifactorial, though LFTs have been continued to improve. All workup has been negative so far including labs and imaging, etc. except elevated Ig. Looking back,
she did have documented hypotension into the 70s on admission, and even though she does have chronic hypotension on midodrine low flow/shock liver is still a possible etiology, with malnutrition as a cause of her coagulopathy. While there is a
concern for possible autoimmune hepatitis and acute liver failure this does seem a bit less likely clinically, given improvement in LFTs and essentially normal LFTs previously, with normal autoimmune markers. Will continue to trend labs, though
again have been consistently improving. If they continue to improve then possible DC in the next 24 hours with close outpatient follow-up. She is status post a course of N-acetylcysteine. Her ammonia level is slightly higher today, though her
mental status actually seems improved. Will continue to trend for now and hold on starting lactulose.
Subjective
Subjective
Date of Service: October 19, 2024
No new events, is more interactive per the patient's father, no fevers or chills, tolerating tube feeds.
Objective
Data Reviewed
Laboratory Data:
Laboratory Results
10/19/24 04:17
10/19/24 04:17
Laboratory Results
PT 21.3 Sec (11.4-14.6) H 10/19/24 04:17
INR 1.79 10/19/24 04:17
Total Bilirubin 8.4 mg/dl (0.2-1.3) H 10/19/24 04:17
AST 584 U/L (14-36) H* 10/19/24 04:17
ALT 324 U/L (0-35) H 10/19/24 04:17
Alkaline Phosphatase 128 U/L (38-126) H 10/19/24 04:17
Lipase 113 U/L (23-300) 10/09/24 08:25
Vital Signs and I&O:
Vital Signs
Temp Pulse Resp BP Pulse Ox
99.0 F 97 17 104/64 98
10/19/24 03:44 10/19/24 03:44 10/19/24 03:44 10/19/24 03:44 10/19/24 03:44
I&O
10/17/24 10/18/24 10/19/24
06:59 06:59 06:59
Intake Total 580 / 580 1655 / 1655 2265 / 2265
Output Total 450 / 450 300 / 300
Balance 130 / 130 1355 / 1355 2265 / 2265
Physical Exam
Physical Exam
General: NAD
Abdomen: normal bowel sounds, soft, no tenderness, no masses or bruits, no ascites
[2024-10-19] MEDS: MIRALAX 17 GRAMS TUBE ×2 (08:44→19:58)
[2024-10-19] MEDS: SENNA SYRUP 8.8 MG TUBE ×2 (08:44→19:57)
[2024-10-19] MEDS: ONFI 10 MG TUBE ×2 (08:44→19:58)
[2024-10-19] MEDS: SINGULAIR 10 MG TUBE (08:44)
[2024-10-19] MEDS: ProAmatine 15 MG TUBE ×2 (08:45→17:01)
[2024-10-19] MEDS: TRILEPTAL 600 MG TUBE ×2 (08:45→19:57)
[2024-10-19] MEDS: DESENEX/MITRAZOL/ZEASORB 1 APPLIC TOPICAL ×2 (08:52→22:05)
--- NOTE | 2024-10-19 15:41 | W.PN.HOSP.TC ---
Addendum entered and electronically signed by Lauro Doe MD 10/19/24 16:03:
I spoke with on-call shared services representative who said it is okay to do maximum 2 grams of Tylenol for now, as needed for fever. Will order prn Tylenol.
Original Note:
Today's Communication/Plan
-
New fever this afternoon
Check COVID, Flu, UA, and, given complex medical condition, also obtain blood cultures
Transfer to IMU as patient is at an elevated risk for decompensation
Appreciate pulm, ID, and GI
Assessment / Plan
Assessment / Plan
Physical Exam
General: No Apparent Distress
Respiratory: Rhonchi bilaterally
Cardiac: Regular Rhythm and S1/S2
GI: Soft, Positive Bowel Sounds and Peg Tube
Neuro: Sleeping, at times opening her eyes
Psych: Calm
Assessment/Plan
48 F with cerebral palsy and frequent aspiration events now s/p PEG comes in with PEG malfunction where feeding was leaking from around PEG site. No vomiting. No diarrhea. Has been having regular bms. Found to have a UTI. Abdominal xray without
airfluid levels to suggest obstruction. Possible delayed emptying, ileus.
New Fever 100.9 F on October 19, 2024 afternoon
- Check COVID and Influenza
- Given complex medical condition, also check blood cultures
- Check urinalysis
- Consulted infectious disease, appreciate evaluation and recommendations
- Plan to start Unasyn once UA and blood cultures collected
- Transfer to IMU as patient is at a high-risk for decompensation
Tube feeding leakage likely secondary to severe constipation
- At home on (On Compleat 1.5 45ml/hr with 50 ml/hr water flush for 16 hours daily) .
- Continue with tube feeding which she seems to tolerance .
- GI following.
- Tube study was performed and Contrast instilled through the patient's indwelling PEG tube outlines the stomach and proximal small bowel, confirming placement.
Constipation
-Recommended to continue with Colace, senna and continue MiraLAX twice daily.
-Also will need additional medication regimen prn .
-Status post Enema.
-AXR with improvement in stool burden .
-With possible ileus on CT imaging, consulted surgery: per surgery team, patient does NOT have symptoms of small bowel obstruction and surgeon reviewed films personally -- there is questionable
sigmoid narrowing; can consider Gastrograffin enema but would hold off for now as patient has been having bowel movements
Nonspecific pulmonary parenchymal opacity on CT Abdomen Pelvis
-Consulted cardio who said no need for Diuretics (which patient could not tolerate anyway due to her hypotension), they mentioned based on chart review no need for cardiology consult at this time
-Can consider echocardiogram and/or CXR
-Consulted pulm who mentioned opacities on chest imaging are chronic, they will come and go with aspiration
-CXR on 10/13/24: as per radiologist's report, showed: 'Low lung volumes with diffuse interstitial opacification and bibasilar opacities which may represent multifocal pneumonia or mild edema/atelectasis.'
Abnormal LFTs acute cholecystic hepatitis picture noted with elevated bilirubin and transaminitis.
Concern for Acute Liver Failure
Persistent Elevated LFTs
High INR
-LFTs are improving
-Hypotension possibly contributed to LFTs increase, less likely from autoimmune process
-Since patient's mental status is difficult to assess, have checked ammonia and lactic acid which are normal (this is a way to monitor for encephalopathy through bloodwork)
-Acute liver failure workup as per GI work up ordered (viral, autoimmune, hepatitis, Pillo's, A1AT, herediatry hemochromatosis, tylenol, CMV, EBV, HSV) majority pending, IgG high other immunoglobulins normal, ferritin 822 but acute phase reactant
does
have high iron sat 69% -- HFE gene sent to check for hemochromatosis
-I spoke on 10/12/24 via [place] Text with Dr. Anand (shared services representative) who mentioned she is doing a full liver workup and Dr. Anand spoke with liver transplant [facility], Dr. Jacinto
-Workup so far negative, except elevated Ig
-No prior history of biliary disease according to the father
-Per Dr. Anand, no need for Flagyl since biliary is not the source
-Ammonia and lactic acid are normal, which is reassuring (if these were high, she would need to be transferred emergently)
-Completed N-acetylcysteine drip per [facility] protocol, as per gastroenterology
-Vitamin K was ordered (besides liver, malnutrition could be increasing the INR) -- subq (because poor iv access and pt cannot take po) was ordered on 10/12/24, another dose of Vitamin K ordered for 10/15/24 given due to slight
increase in INR
-Daily MELD labs
-No liver biopsy at this time, continue to monitor LFTs
Thrombocytopenia
-Possibly secondary to recent infection +/- drug induced from antibiotics
-Appreciate hematology evaluation and recommendations
-Okay to continue DVT prophylaxis with Lovenox
Pseudomonas UTI
-Followed-up on the susceptibility results.
-Received Cefepime for ~5 days (start date was 10/08/24)
Vaginal Discharge
-Diflucan will not be a good idea given elevated liver function tests AST and ALT
-Consulted gynecology, appreciate their evaluation and recommendations -- see note from 10/18/24
Chronic Hypotension
- Mostly of the systolics are in 90s at home too per patient's father
- Continue with midodrine
Seizure Disorder
- Continue clobazam and oxcarbazepine
Cerebral palsy with functional quadriplegia
Chronic dysphagia status post PEG tube
Chronic hypotension with midodrine
History of ovarian cancer status post surgery
DVT Prophylaxis: Lovenox subq
Code status - Full Code
Discussed with patient's father
Anticipated Discharge: > 48 hours
Subjective/Interval History
-
Date of Service: October 19, 2024
Patient was seen and examined. No new symptoms, but in the afternoon she developed a fever.
Objective Data
-
Labs:
Laboratory Results
10/19/24
04:17
WBC 6.4
Hgb 11.2 L
Hct 33.3 L
Plt Count 152
PT 21.3 H
INR 1.79
Sodium 137
Potassium 3.9
Chloride 102
Carbon Dioxide 31 H
BUN 22 H
Creatinine 0.6
Glucose 122 H
Calcium 7.7 L
Total Bilirubin 8.4 H
AST 584 H*
ALT 324 H
Alkaline Phosphatase 128 H
Vital Signs:
Vital Signs
Temp Pulse Resp BP Pulse Ox
100.9 F H 92 16 111/71 98
10/19/24 11:15 10/19/24 11:15 10/19/24 11:15 10/19/24 11:15 10/19/24 11:47
I&O
10/18/24 10/19/24 10/20/24
06:59 06:59 06:59
Intake Total 1655 / 1655 2245 / 2245
Output Total 300 / 300
Balance 1355 / 1355 2245 / 2245
--- NOTE | 2024-10-19 16:31 | CM ---
Reviewed the chart notes. Tolerating tube feeds. CM continues to be available to patient/family and is monitoring medical plan for needs at discharge.
Plan: Discharge to home with [facility] services.
--- NOTE | 2024-10-19 16:46 | PHA.VAN.IN ---
Assessment
- Assessment
Renal Function: Appears similar to baseline
Concomitant Antimicrobials: ZOSYN
- Previous Dosing Experience
Previous Regimen: NONE
AUC Dosing Plan
- Dosing Variables
Dosing Weight (kg): 57.7
Dosing CrCl (ml/min): 86
Vd coefficient (L/kg): 0.7
- Empiric Dosing
Initial / Loading Dose: 1500MG
Maintenance Regimen: 750MG IV Q12H
Estimated AUC (mcg*h/mL): 509
Estimated Peak (mcg*h/mL): 31.1
Estimated Trough (mcg/ml): 13.5
Estimated Half Life (H): 9.1
Pharmacokinetics Vancomycin I
- -
Patient Age: 49
Patient Sex: Female
Vancomycin Day #: 1
Indication: Pulmonary/Respiratory
Requesting Provider: EVERARDO
Pertinent Antimicrobial Allergies:
Allergies
cephalexin [From Keflex] Allergy (Verified 10/06/24 21:11)
Unknown
Height / Weight:
Height 4 ft 9 in
Actual Weight 57.7 kg
Pertinent Past Medical History: OVARIAN CA
- Vital Signs / Lab Results
Temp Pulse Resp BP Pulse Ox
102.3 F H 101 16 123/73 93
10/19/24 15:50 10/19/24 15:50 10/19/24 15:50 10/19/24 15:50 10/19/24 15:50
Lab Results - Hematology
10/17/24 10/17/24 10/19/24
08:21 09:52 04:17
WBC 5.5 Cancelled 6.4
Lab Results - Chemistry
10/17/24 10/18/24 10/19/24
08:21 06:06 04:17
BUN 20 H 23 H 22 H
Creatinine 0.6 0.5 L 0.6
Estimated Creat Clear 86 86 86
Albumin 2.1 L 2.1 L 2.1 L
Microbiology Results
10/18/24 18:24 Chlamydia trachomatis (PCR) - Final
Vagina Neisseria gonorrhoeae (PCR) - Final
[2024-10-19] MEDS: TYLENOL ORAL SOLUTION 500 MG TUBE (17:00)
[2024-10-19 17:06] LABS: COVID-19 Antigen Negative (Negative)
[2024-10-19 17:49] LABS: Urine Albumin Trace (Neg - Trace); Urine Bilirubin 2+ (Negative); Urine Character Clear (Clear); Urine Color Yellow; Urine Glucose Negative (Negative); Urine Ketone Negative (Negative); Urine Leukocyte 1+ (Negative); Urine Nitrite Positive (Negative); Urine Occult Blood Negative (Negative); Urine Specific Gravity 1.015 (<1.030); Urine Urobilinogen 3+ (Neg - 1+); Urine pH 6.5 (5.0-9.0)
[2024-10-19 17:59] LABS: Urine Squamous Cell 0-2 /LPF (Few)
[2024-10-19 18:01] LABS: Urine Bacteria Many (Negative); Urine Red Blood Cell 0-2 /HPF (0-2)
[2024-10-19] MEDS: ZOSYN 50 IV ×2 (18:03→22:05)
[2024-10-19] MEDS: LOVENOX 40 MG SC (18:08)
[2024-10-19 19:09] LABS: Hemochromatosis Specimen Whole Blood
--- NOTE | 2024-10-19 19:22 | PTCARENOTE ---
new orders late afternoon for blood cultures, urine , iv abx for increased secretions and elevated temp. unable to get second set of blood cultures due to difficult stick, dr. pelayo updated as well as ID, okay to hang abx, straight cath'd for
urine, tylenol given for temp. report given to IMU prior to leaving, as well as updates given to Ivana MUELLER due to bed not being ready on IMU., Patient is resting with family at bedside.
[2024-10-19] MEDS: VANCOCIN 530 MG IV (19:56)
--- NOTE | 2024-10-19 20:59 | PTCARENOTE ---
Addendum entered by Daisy Hendrickson 10/19/24 22:30:
Pump replaced, TF resumed.
Original Note:
Rec'd pt as transfer from previous RN. Pt nonverbal, drowsy, limbs flaccid. Pt moans at times, wet/gurgly voice quality. 3L O2 in place. TF unable to run d/t pump issue. This RN contacted nursing respiratory supervisor to locate new kangaroo pump. Hygiene care
performed. R midline intact with abx running per JAN. Family present at bedside at this time. Bed alarm in place for pt safety.
[2024-10-20] VITALS (12 sets, daily range): BP systolic 115–138; BP diastolic 78–88
[2024-10-20] MEDS: ZOSYN 50 IV ×4 (03:08→22:41)
[2024-10-20 04:22] LABS: % Basophils 0.6 % (0-2); % Eosinophils 1.4 % (0-6); % Immature Granulocytes 0.5 % (0-0.5); % Lymphocytes 12.3 % (20.5-51.1); % Monocytes 17.3 % (1.7-9.3); % Neutrophils 67.9 % (42.2-75.2); Absolute Basophils 0.1 10^3/uL (0-0.2); Absolute Eosinophils 0.2 10^3/uL (0-0.7); Absolute Immature Granulocytes 0.1 10^3/uL (0-0.05); Absolute Lymphocytes 1.6 10^3/uL (1.2-3.4); Absolute Monocytes 2.2 10^3/uL (0.1-0.6); Absolute Neutrophils 8.6 10^3/uL (1.4-6.5); Hematocrit 36.2 % (37.0-47.0); Hemoglobin 11.3 g/dL (12.0-16.0); Mean Corp Hgb Conc. 31.2 g/dL (33.0-37.0); Mean Corpuscular Hgb 29.8 pg (27.0-31.0); Mean Corpuscular Volume 95.5 fL (81.0-99.0); Mean Platelet Volume 13.1 fL (7.4-10.4); Nucleated Red Blood Cells % 0 %; Platelet Count 171 10^3/uL (130-400); Red Blood Cell Count 3.79 10^6/uL (4.20-5.40); Red Cell Dist. Width 18.5 % (11.5-14.5); White Blood Cell Count 12.7 10^3/uL (4.8-10.8)
[2024-10-20 04:37] LABS: Ammonia 38 umol/L (9-30)
[2024-10-20 04:53] LABS: INR 1.79; PT 21.3 Sec (11.4-14.6)
[2024-10-20 05:53] LABS: ALT (SGPT) 275 U/L (0-35); AST (SGOT) 458 U/L (14-36); Albumin 2.1 g/dl (3.5-5.0); Alkaline Phosphatase 110 U/L (38-126); Blood Urea Nitrogen 22 mg/dl (7-17); Calcium 7.6 mg/dl (8.4-10.2); Carbon Dioxide 27 mmol/L (22-30); Chloride 103 mmol/L (98-107); Direct Bilirubin 8.1 mg/dl (0.0-0.4); Estimated Creatinine Clearance 86 ml/min; Glucose 132 mg/dl (70-99); Magnesium 2.1 mg/dl (1.6-2.3); Potassium 3.6 mmol/L (3.5-5.1); Sodium 136 mmol/L (135-145); Total Bilirubin 9.3 mg/dl (0.2-1.3); Total Protein 5.3 g/dl (6.3-8.2); eGFR > 60.00
[2024-10-20] MEDS: VANCOCIN 150 IV ×2 (06:02→16:56)
--- NOTE | 2024-10-20 09:55 | W.PN.PUL.V3 ---
Today's Communication / Plan
-
Reculture.
Antibiotics.
Mucus clearing attempts
Aspiration precautions
Assessment
-
48-year-old female with previous history of cerebral palsy, seizures, functional quadriplegia, nonverbal at baseline, recurrent aspiration status post PEG placement presenting to ER from home with concern for PEG tube malfunction. She is
admitted on 10/07/2024 undergoing workup for abnormal liver enzymes as well. She had a CT abdomen pelvis which indicates small groundglass opacities in the basilar portion of the lung. She has a history of abnormal chest imaging due to chronic
aspiration.
Recurrent aspiration
Chronic abnormal chest imaging, GGOs
Chronic hypoxic respiratory failure on nasal cannula, 2L (baseline)
PEG malfunction
Elevated LFTs
Conditions present prior to admission:
Chronic dysphagia status post PEG
Recurrent aspiration pneumonia
Cerebral palsy with functional quadriplegia
Nonverbal
Seizure disorder
Esophageal web
Hypertension
Ovarian cancer status post total abdominal hysterectomy and oophorectomy
Vagus nerve stimulator implant
Appendectomy
Plan
Recurrent decompensation likely due to recurrent aspiration pneumonia difficulties mobilizing her secretions.
Continue supplemental oxygen.
Head of bed elevation.
Aspiration precautions.
Mucolytic's
Deep suction-airway clearance measures are limited due to patient's cognitive function
Nebulizers
Follow radiographically.
Recheck cultures.
Infectious disease consultation.
Antibiotics per infectious disease-vancomycin and Zosyn initiated
Follow leukocytosis and temperature curve
Follow-up LFTs.
Continue those of care discussion-currently a full code-hopefully we can avoid intubation and mechanical ventilation though her respiratory status quite tenuous.
Dr. Hagan updated mother at the bedside
Previous speech therapy evaluations:
Prior VSE 04/14/24- Deep penetration of thin liquids with no aspiration noted. Patient presents with moderate oral dysphagia and mild pharyngeal dysphagia, similar to recent study.
Supraglottic penetration (PAS 3) noted with thin liquids via consecutive straw sips.
Speech therapy evaluation 06/13/24- Patient exhibits clinical signs of oropharyngeal dysphagia, likely chronic related to Cerebral Palsy and acutely exacerbated by aspiration pneumonia.
Patient remains at high for aspiration and related complications given current tenuous pulmonary status, lethargy, decreased mobility at baseline, and poor oral hygiene.
Patient also is at high risk for post-prandial aspiration given esophageal web and PEG tube feedings, with patient's father reporting 2-3 episodes of regurgitation of tube feedings 2 weeks ago.
At this time, recommending NPO with PEG tube for all nutrition/medication/hydration, as patient appears with more severe oropharyngeal dysphagia than during last admission due to acuity of illness at this time.
Suspect when patient improves medically, pt may be able to safely tolerate puree textures and Mildly-thick liquids for pleasure
Family then refused further speech eval
Diagnostic Data
Chest X-Ray: 06/15/24- Airspace opacities in the left midlung suspicious for pneumonia. Right lung is grossly clear.
06/12/24- 1. Moderate-sized airspace opacities in the right mid/lower lung and in the left lower lobe suspicious for bilateral pneumonia.
2. Severe bowing deformities of both humeral diaphyses which appear unchanged.
04/12/24- No acute disease of the chest. No definitive pneumonia on this plain film examination.
CT Scan: CHEST 03/17/24- Bilateral pneumonia. Large amount of stool in the colon consistent with constipation.
Multiple bilateral hypodense lesions in the kidneys consistent with cysts. Mild caliectasis in the right kidney.
Diffuse urinary bladder wall thickening consistent with the history of UTI.
Echo: 04/11/24-Normal LV size and function with no regional wall motion abnormalities. LVEF is 55 to 60% by visual estimation. Normal diastolic function. Normal right ventricular size and function. No significant valvular disease.
No prior study available for comparison.
Reports and relevant images were personally reviewed.
Subjective Data
-
Date of Service:
Date of Service: October 20, 2024
Chief Complaint: Pulmonary Follow Up (Abnormal chest x-ray) and Dyspnea Follow Up
Subjective:
Still with some mild respiratory distress, difficulties mobilizing secretions, unable to obtain review of systems
Review of Systems
General: Other ( per HPI)
Objective Data
Data Reviewed
Vital Signs / I&O:
Vital Signs
Temp Pulse Resp BP Pulse Ox
99.8 F 87 22 123/79 98
10/20/24 07:04 10/20/24 06:00 10/20/24 06:00 10/20/24 06:00 10/20/24 06:00
Intake and Output
10/19/24 10/20/24 10/21/24
06:59 06:59 06:59
Intake Total 2245 / 2245 1705 / 1705
Output Total 100 / 100
Balance 2245 / 2245 1605 / 1605
SaO2: 98
Nasal Cannula flow liters per minute: 3
Physical Exam
General: Comfortable
HEENT: Normocephalic
Cardiovascular: Regular Rhythm and Murmur (n)
Respiratory: Non-Labored Respirations
GI: Soft and Non Distended
Neurology: Awake
Skin: Warm, Good Color, Cyanosis (n) and Jaundice (n)
Labs/Micro/Reports
Lab Data
10/20/24 03:57
10/20/24 05:01
Laboratory Results
10/20/24 10/20/24
03:57 04:32
PT Cancelled 21.3 H
INR Cancelled 1.79
Microbiology
10/19/24 16:43 Nasal Swab Influenza Types A & B (SAMARA) - Final
Negative for Influenza A & B, NAAT
Negative results must be combined with clinical observations
and patient history.
Nucleic Acid Amplification test (NAAT)performed on the
[employer] platform.
10/18/24 18:24 Vagina Chlamydia trachomatis (PCR) - Final
10/18/24 18:24 Vagina Neisseria gonorrhoeae (PCR) - Final
[2024-10-20] MEDS: MIRALAX 17 GRAMS TUBE ×2 (10:19→20:15)
[2024-10-20] MEDS: TRILEPTAL 600 MG TUBE ×2 (10:19→20:16)
[2024-10-20] MEDS: SENNA SYRUP 8.8 MG TUBE ×2 (10:19→20:16)
[2024-10-20] MEDS: ProAmatine 15 MG TUBE ×2 (10:19→16:57)
[2024-10-20] MEDS: SINGULAIR 10 MG TUBE (10:19)
[2024-10-20] MEDS: DESENEX/MITRAZOL/ZEASORB 1 APPLIC TOPICAL ×2 (10:22→20:16)
[2024-10-20] MEDS: ONFI 10 MG TUBE ×2 (10:22→20:16)
[2024-10-20] MEDS: FLUSH (NSS) 2 FLUSH IV ×3 (10:23→16:57)
--- NOTE | 2024-10-20 11:21 | CON.ID ---
Consultation
-
Date/Time Consultation Requested: 10/19/2024 1538
Date/Time Consultation Performed: 10/20/2024 1100
Requesting Provider: Dr. Doe
Performing Provider: Dr. Trotter
Reason for Consultation: Fever; leukocytosis
Chief Complaint / Past History
History of Present Illness
Ciera Orantes is a 48-year-old female being evaluated at the request of Dr. Doe regarding fever. History is obtained from chart review, along with history obtained from the patient's parents. No significant history is available from the
patient given that she is nonverbal due to her underlying history of cerebral palsy.
The patient was admitted to [facility] on 10/06 secondary to leakage from her G-tube. She has been followed by gastroenterology while here. Additionally, her hospital course has been significant for a possible ileus versus SBO, and she has
been evaluated by General Surgery. She has also had ongoing LFT elevation, and Gastroenterology has also been evaluating that. Yesterday she became febrile, and Infectious Diseases was asked to comment upon further antimicrobial therapy given her
high risk for aspiration pneumonia. She has been started on empiric antibiotics (Zosyn/vancomycin).
Today, the patient's mother reports that she appears 'off', and appears to have some more labored breathing.
Past History
Additional Past Medical History:
Cerebral Palsy
Ovarian Cancer s/p Surgery and Hormone Treatment
Seizure Disorder
Additional Past Surgical History:
LUCERO / BSO
Appendectomy
Vagus Nerve Stimulator Implantation (Left Upper Chest)
Allergy History:
brompheniramine [From Dimetapp Cold-Allergy (PE)] Allergy (Verified 10/06/24 21:11)
hyper
cephalexin [From Keflex] Allergy (Verified 10/06/24 21:11)
Unknown
chloral hydrate Allergy (Verified 10/06/24 21:11)
hyper
diphenhydramine [From Benadryl] Allergy (Verified 10/06/24 21:11)
hyper
latex Allergy (Verified 10/06/24 21:11)
Swelling
levofloxacin Allergy (Verified 10/06/24 21:11)
Unknown
phenobarbital Allergy (Verified 10/06/24 21:11)
hyper
phenylephrine [From Dimetapp Cold-Allergy (PE)] Allergy (Verified 10/06/24 21:11)
hyper
phenytoin [From Dilantin] Allergy (Verified 10/06/24 21:11)
Rash
Sulfa (Sulfonamide Antibiotics) Allergy (Verified 10/06/24 21:11)
Hives
topiramate [From Topamax] Allergy (Verified 10/06/24 21:11)
Rash
Medications Reviewed: Yes
Current Antibiotics:
Vancomycin
Zosyn
Social History
Tobacco: Non-Smoker
Alcohol: None
Drug: None
Personal: Single
Living: With Family
Employment: Disabled
Review of Systems
Vital Signs
Temp Pulse Resp BP Pulse Ox
98.9 F 87 22 123/79 98
10/20/24 10:32 10/20/24 06:00 10/20/24 06:00 10/20/24 06:00 10/20/24 09:55
Physical Exam
Physical Exam
Constitutional: Comfortable, Acutely Ill, Chronically Ill and Non-toxic
Eyes: No Conjunctival Hemorrhage and Sclera Anicteric
Oral: No Thrush and No Ulcers
Cardiovascular: Regular Rate and S1/S2; Negative S3/S4 or Murmur
Pulmonary: Rhonchi (Scattered), Coarse and Other (Mildly labored)
Gastrointestinal: Soft, Non Distended, Normal Bowel Sounds, No Rebound, No Guarding and Other (PEG tube in place)
Extremities: Edema; Negative Cyanosis or Erythema
Skin: Jaundice; Negative Rash
Neurological: Awake
Psychological: Calm
Lab / Diagnostic Study Results
10/20/24 03:57
10/20/24 05:01
Abs Immat Gran (auto) 0.1 10^3/uL (0-0.05) H 10/20/24 03:57
Absolute Neuts (auto) 8.6 10^3/uL (1.4-6.5) H 10/20/24 03:57
Absolute Lymphs (auto) 1.6 10^3/uL (1.2-3.4) 10/20/24 03:57
Absolute Monos (auto) 2.2 10^3/uL (0.1-0.6) H 10/20/24 03:57
Absolute Basos (auto) 0.1 10^3/uL (0-0.2) 10/20/24 03:57
Total Counted 100 10/16/24 06:02
Immature Gran % 0.5 % (0-0.5) 10/20/24 03:57
Neutrophils % 67.9 % (42.2-75.2) 10/20/24 03:57
Lymphocytes % 12.3 % (20.5-51.1) L 10/20/24 03:57
Monocytes % 17.3 % (1.7-9.3) H 10/20/24 03:57
Eosinophils % 1.4 % (0-6) 10/20/24 03:57
Basophils % 0.6 % (0-2) 10/20/24 03:57
Abs Neuts (Manual) 2.3 10^3/uL (1.4-6.5) 10/16/24 06:02
Segmented Neutrophils 39 % (42-75) L 10/16/24 06:02
Band Neutrophils 5 % (0-3) H D 10/16/24 06:02
Lymphocytes (Manual) 28 % (20-51) 10/16/24 06:02
Eosinophils (Manual) 2 % (0-6) 10/16/24 06:02
Basophils (Manual) 1 % 10/16/24 06:02
PT 21.3 Sec (11.4-14.6) H 10/20/24 04:32
INR 1.79 10/20/24 04:32
Lactic Acid 1.2 mmol/L (0.7-2.0) 10/16/24 06:02
Ur Squamous Epith Cells 0-2 /LPF (Few) 10/19/24 17:39
Microbiology Results
Micro:
10/19/24 17:39 Urine Culture - Pending
Urine
10/19/24 16:43 Influenza Types A & B (SAMARA) - Final
Nasal Swab Negative for Influenza A & B, NAAT
Negative results must be combined with clinical observations
and patient history.
Nucleic Acid Amplification test (NAAT)performed on the
[employer] platform.
10/19/24 16:18 Blood Culture - Pending
Blood/Venous
10/18/24 18:24 Chlamydia trachomatis (PCR) - Final
Vagina Neisseria gonorrhoeae (PCR) - Final
10/18/24 18:24 Yeast Culture - Pending
Vagina
10/12/24 17:22 Influenza Types A & B (SAMARA) - Final
Nasal Swab Negative for Influenza A & B, NAAT
Negative results must be combined with clinical observations
and patient history.
Nucleic Acid Amplification test (NAAT)performed on the
[employer] platform.
10/06/24 23:54 Urine Culture - Final
Urine Pseudomonas aeruginosa
Imaging:
10/19/2024 CXR (portable): Mild airspace disease in left lower lung field concerning for pneumonia. No visualized pneumothorax.
10/11/2024 CT abdomen/pelvis with contrast: Nonspecific pulmonary parenchymal opacity; consider edema or congestive heart failure. Diffuse pneumonia or nonspecific alveolitis can also be seen. Moderate gallbladder distention noted. Mild
distention without gross dilatation of proximal small bowel loops, with a few air contrast levels. Please see full dictation for additional detail.
Assessment / Plan
Suspected aspiration pneumonia
Leukocytosis
Fever
Transaminitis
- drug effect? Infectious process? Autoimmune?
Elevated bilirubin
Cerebral Palsy
Hx Ovarian Cancer s/p Surgery and Hormone Treatment
Seizure Disorder
Recommendations:
Continue with empiric Zosyn and vancomycin for the present.
Close monitoring of Vanco trough to prevent renal toxicity.
Follow white count and temperature curve.
Aspiration precautions.
Intermittent monitoring of chest imaging to follow-up for possible improvements.
Counseled family that given underlying comorbidities, patient is at high risk for recurrent aspiration.
Trend LFTs/bilirubin
--- NOTE | 2024-10-20 11:33 | PHA.VAN.FU ---
Vancomycin Assessment / Plan
- Assessment
Renal Function: Stable
WBC's are: Trending Up (6.4->12.7)
Concomitant Antimicrobials: piperacillin/tazobactam
- Dosing Plan
Continue: vancomycin 750 mg q12h - first dose 10/20 600
- Monitoring Plan
No level(s) ordered at this time: consider levels after 1800 dose Sat candy
- Follow Up
Pharmacy will continue to follow.
Vancomycin Follow UP
- -
Patient Age: 49
Patient Sex: Female
Vancomycin Day #: 2
Indication: Pulmonary/Respiratory
Requesting Provider: EVERARDO
Pertinent Antimicrobial Allergies:
Allergies
cephalexin [From Keflex] Allergy (Verified 10/06/24 21:11)
Unknown
Height / Weight:
Height 4 ft 9 in
Actual Weight 57.7 kg
Pertinent Past Medical History: OVARIAN CA; cerebral palsy
- Vital Signs / Lab Results
Temp Pulse Resp BP Pulse Ox
98.9 F 87 22 123/79 98
10/20/24 10:32 10/20/24 06:00 10/20/24 06:00 10/20/24 06:00 10/20/24 09:55
Lab Results - Hematology
10/17/24 10/19/24 10/20/24
09:52 04:17 03:57
WBC Cancelled 6.4 12.7 H
Lab Results - Chemistry
10/18/24 10/19/24 10/20/24
06:06 04:17 03:57
BUN 23 H 22 H Cancelled
Creatinine 0.5 L 0.6 Cancelled
Estimated Creat Clear 86 86 Cancelled
Albumin 2.1 L 2.1 L Cancelled
10/20/24
05:01
BUN 22 H
Creatinine 0.6
Estimated Creat Clear 86
Albumin 2.1 L
Lab Results - Urine
10/19/24
17:39
Urine Nitrite (Reflex) Positive A
Leukocyte Esterase Rfl 1+ A
Ur Squamous Epith Cells 0-2
Microbiology Results
10/19/24 16:43 Influenza Types A & B (SAMARA) - Final
Nasal Swab Negative for Influenza A & B, NAAT
Negative results must be combined with clinical observations
and patient history.
Nucleic Acid Amplification test (NAAT)performed on the
[employer] platform.
10/18/24 18:24 Chlamydia trachomatis (PCR) - Final
Vagina Neisseria gonorrhoeae (PCR) - Final
--- NOTE | 2024-10-20 15:38 | W.PN.HOSP.TC ---
Today's Communication/Plan
-
Continue Vancomycin and Zosyn
Appreciate ID and Pulm
Repeat CXR tomorrow morning
Assessment / Plan
Assessment / Plan
Physical Exam
General: No Apparent Distress
Respiratory: Rhonchi bilaterally
Cardiac: Regular Rhythm and S1/S2
GI: Soft, Positive Bowel Sounds and Peg Tube
Neuro: Sleeping, at times opening her eyes
Psych: Calm
Assessment/Plan
48 F with cerebral palsy and frequent aspiration events now s/p PEG comes in with PEG malfunction where feeding was leaking from around PEG site. No vomiting. No diarrhea. Has been having regular bms. Found to have a UTI. Abdominal xray without
airfluid levels to suggest obstruction. Possible delayed emptying, ileus.
New Fever 100.9 F on October 19, 2024 afternoon
New Leukocytosis on 10/20/24
- COVID and Influenza negative
- Given complex medical condition, also check blood cultures
- Urinalysis suggestive of UTI
- Consulted infectious disease, appreciate evaluation and recommendations: continue Vancomycin and Zosyn
- Elevation of head of bed and aspiration precautions
- Continue monitoring in IMU as patient is at a high-risk for decompensation
Tube feeding leakage likely secondary to severe constipation
- At home on (On Compleat 1.5 45ml/hr with 50 ml/hr water flush for 16 hours daily) .
- Continue with tube feeding which she seems to tolerance .
- GI following.
- Tube study was performed and Contrast instilled through the patient's indwelling PEG tube outlines the stomach and proximal small bowel, confirming placement.
Constipation
-Recommended to continue with Colace, senna and continue MiraLAX twice daily.
-Also will need additional medication regimen prn .
-Status post Enema.
-AXR with improvement in stool burden .
-With possible ileus on CT imaging, consulted surgery: per surgery team, patient does NOT have symptoms of small bowel obstruction and surgeon reviewed films personally -- there is questionable
sigmoid narrowing; can consider Gastrograffin enema but would hold off for now as patient has been having bowel movements
Nonspecific pulmonary parenchymal opacity on CT Abdomen Pelvis
-Consulted cardio who said no need for Diuretics (which patient could not tolerate anyway due to her hypotension), they mentioned based on chart review no need for cardiology consult at this time
-Can consider echocardiogram and/or CXR
-Consulted pulm who mentioned opacities on chest imaging are chronic, they will come and go with aspiration
-CXR on 10/13/24: as per radiologist's report, showed: 'Low lung volumes with diffuse interstitial opacification and bibasilar opacities which may represent multifocal pneumonia or mild edema/atelectasis.'
Abnormal LFTs acute cholecystic hepatitis picture noted with elevated bilirubin and transaminitis.
Concern for Acute Liver Failure
Persistent Elevated LFTs
High INR
-LFTs are improving
-Hypotension possibly contributed to LFTs increase, less likely from autoimmune process
-Since patient's mental status is difficult to assess, have checked ammonia and lactic acid which are normal (this is a way to monitor for encephalopathy through bloodwork)
-Acute liver failure workup as per GI work up ordered (viral, autoimmune, hepatitis, Pillo's, A1AT, herediatry hemochromatosis, tylenol, CMV, EBV, HSV) majority pending, IgG high other immunoglobulins normal, ferritin 822 but acute phase reactant
does
have high iron sat 69% -- HFE gene sent to check for hemochromatosis
-I spoke on 10/12/[address] [place] [employer] [address] Anand (racecar driver) who mentioned she is doing a full liver workup and Dr. Anand spoke with liver transplant [facility]ther[facility], Dr. Jacinto
-Workup so far negative, except elevated Ig
-No prior history of biliary disease according to the father
-Per Dr. Anand, no need for Flagyl since biliary is not the source
-Ammonia and lactic acid are normal, which is reassuring (if these were high, she would need to be transferred emergently)
-Completed N-acetylcysteine drip per RETIREMENT protocol, as per gastroenterology
-Vitamin K was ordered (besides liver, malnutrition could be increasing the INR) -- subq (because poor iv access and pt cannot take po) was ordered on 10/12/24, another dose of Vitamin K ordered for 10/15/24 given due to slight
increase in INR
-Daily MELD labs
-No liver biopsy at this time, continue to monitor LFTs
Thrombocytopenia
-Possibly secondary to recent infection +/- drug induced from antibiotics
-Appreciate hematology evaluation and recommendations
-Okay to continue DVT prophylaxis with Lovenox
Pseudomonas UTI
-Followed-up on the susceptibility results.
-Received Cefepime for ~5 days (start date was 10/08/24)
Vaginal Discharge
-Diflucan will not be a good idea given elevated liver function tests AST and ALT
-Consulted gynecology, appreciate their evaluation and recommendations -- see note from 10/18/24
Chronic Hypotension
- Mostly of the systolics are in 90s at home too per patient's father
- Continue with midodrine
Seizure Disorder
- Continue clobazam and oxcarbazepine
Cerebral palsy with functional quadriplegia
Chronic dysphagia status post PEG tube
Chronic hypotension with midodrine
History of ovarian cancer status post surgery
DVT Prophylaxis: Lovenox subq
Code status - Full Code
Discussed with patient's father
Anticipated Discharge: > 48 hours
Subjective/Interval History
-
Date of Service: October 20, 2024
Patient was seen and examined. She was in mild respiratory distress with secretions.
Objective Data
-
Labs:
Laboratory Results
10/20/24 10/20/24 10/20/24
03:57 04:32 05:01
WBC 12.7 H
Hgb 11.3 L
Hct 36.2 L
Plt Count 171
PT Cancelled 21.3 H
INR Cancelled 1.79
Sodium Cancelled 136
Potassium Cancelled 3.6
Chloride Cancelled 103
Carbon Dioxide Cancelled 27
BUN Cancelled 22 H
Creatinine Cancelled 0.6
Glucose Cancelled 132 H
Calcium Cancelled 7.6 L
Total Bilirubin Cancelled 9.3 H
AST Cancelled 458 H
ALT Cancelled 275 H
Alkaline Phosphatase Cancelled 110
Vital Signs:
Vital Signs
Temp Pulse Resp BP Pulse Ox
98.9 F 96 23 120/79 92
10/20/24 10:32 10/20/24 14:00 10/20/24 14:00 10/20/24 14:00 10/20/24 14:00
I&O
10/19/24 10/20/24 10/21/24
06:59 06:59 06:59
Intake Total 2245 / 2245 1705 / 1705
Output Total 100 / 100
Balance 2245 / 2245 1605 / 1605
[2024-10-20] MEDS: ROBITUSSIN 100 MG TUBE ×2 (15:39→20:16)
[2024-10-20] MEDS: LOVENOX 40 MG SC (16:56)
--- NOTE | 2024-10-20 17:00 | PTCARENOTE ---
Patient drowsy, sleeping all day. Patient arousable but falls right back to sleep. Low grade temperature this afternoon. Tolerating tube feedings. Parents in room at bedside.
--- NOTE | 2024-10-20 17:05 | CM ---
Patient with Hx cerebral palsy with functional quadriplegia, Chronic dysphagia/frequent aspiration events, PEG tube feeds, chronic O2. O2 3L. Receiving IV Abx. Per nursing; non-verbal.
As per prior CM notes, referral to [facility] per father's request - accepted.
CM continuing to follow.
Plan home with [facility].
--- NOTE | 2024-10-20 17:46 | W.PN.GI.CBS2 ---
Today's Communication / Plan
-
trend labs
Assessment / Plan
-
1. Elevated transaminases most likely related to shock liver Transaminases are trending down and hopefully bilirubin has peaked and should start to trend down soon. All her other labs were unremarkable.
Viral hepatitis serologies were negative, EDGAR, AMA, ASMA, Anti LKM1 negative, ceruloplasmin normal, alpha-1 antitrypsin was normal, SPEP normal, EBV IgG antibody was positive, early antibody was positive unclear if she probably had mono. may need to
consider liver biopsy if they start to trend up again she did receive a course of N-acetylcysteine also.
2. Chronic constipation continue bowel regimen Miralax and senna, tolerating TF.
3. Now also with fever and possible recurrent aspiration pneumonia and is on antibiotics noted input from ID
Subjective
Subjective
Date of Service: October 20, 2024
Patient with more labored breathing today and also was febrile yesterday noted input from ID is currently on Zosyn and vancomycin for probable aspiration pneumonia, patient had a bowel movement yesterday, tolerating TF
Objective
Data Reviewed
Laboratory Data:
Laboratory Results
10/20/24 03:57
10/20/24 05:01
Laboratory Results
PT 21.3 Sec (11.4-14.6) H 10/20/24 04:32
INR 1.79 10/20/24 04:32
Magnesium 2.1 mg/dl (1.6-2.3) 10/20/24 05:01
Total Bilirubin 9.3 mg/dl (0.2-1.3) H 10/20/24 05:01
AST 458 U/L (14-36) H 10/20/24 05:01
ALT 275 U/L (0-35) H 10/20/24 05:01
Alkaline Phosphatase 110 U/L (38-126) 10/20/24 05:01
Lipase 113 U/L (23-300) 10/09/24 08:25
Vital Signs and I&O:
Vital Signs
Temp Pulse Resp BP Pulse Ox
100.4 F H 96 23 120/79 93
10/20/24 16:45 10/20/24 14:00 10/20/24 14:00 10/20/24 14:00 10/20/24 16:53
I&O
10/19/24 10/20/24 10/21/24
06:59 06:59 06:59
Intake Total 2245 / 2245 1705 / 1705 100 / 100
Output Total 100 / 100
Balance 2245 / 2245 1605 / 1605 100 / 100
Physical Exam
Physical Exam
Cardiology: Normal Sinus Rhythm
Pulmonary: Rhonchi
GI: Soft, Non Distended, Non Tender, Normal Bowel Sounds and Other (PEG site clean)
[2024-10-20] MEDS: FLUSH (NSS) 4 FLUSH IV (22:41)
[2024-10-21] VITALS (12 sets, daily range): BP systolic 100–122; BP diastolic 61–85
[2024-10-21 00:13] LABS: Bacterial Vaginosis by TMA Negative; Candida glabrata by TMA Negative; Candida species by TMA Negative; Trichomonas vaginalis by TMA Negative
[2024-10-21] MEDS: ZOSYN 50 IV ×4 (03:57→22:52)
[2024-10-21] MEDS: VANCOCIN 150 IV (05:11)
[2024-10-21 05:57] LABS: % Basophils 0.5 % (0-2); % Eosinophils 2.2 % (0-6); % Immature Granulocytes 0.5 % (0-0.5); % Lymphocytes 14.9 % (20.5-51.1); % Monocytes 17.6 % (1.7-9.3); % Neutrophils 64.3 % (42.2-75.2); Absolute Eosinophils 0.2 10^3/uL (0-0.7); Absolute Lymphocytes 1.3 10^3/uL (1.2-3.4); Absolute Monocytes 1.5 10^3/uL (0.1-0.6); Absolute Neutrophils 5.4 10^3/uL (1.4-6.5); Hematocrit 34.1 % (37.0-47.0); Hemoglobin 10.9 g/dL (12.0-16.0); Mean Corpuscular Hgb 30.7 pg (27.0-31.0); Mean Corpuscular Volume 96.1 fL (81.0-99.0); Nucleated Red Blood Cells % 0 %; Platelet Count 152 10^3/uL (130-400); Red Blood Cell Count 3.55 10^6/uL (4.20-5.40); Red Cell Dist. Width 18.3 % (11.5-14.5); White Blood Cell Count 8.4 10^3/uL (4.8-10.8)
[2024-10-21 06:06] LABS: INR 1.68
[2024-10-21 06:09] LABS: Ammonia 42 umol/L (9-30)
--- NOTE | 2024-10-21 06:13 | PTCARENOTE ---
low grade fevers through out night- tea urine paul stool- pt lethargic- bp wnl. weaned to 2 liters from 4- breathing seems better per family
[2024-10-21 06:22] LABS: ALT (SGPT) 235 U/L (0-35); AST (SGOT) 321 U/L (14-36); Albumin 2.2 g/dl (3.5-5.0); Alkaline Phosphatase 138 U/L (38-126); Blood Urea Nitrogen 19 mg/dl (7-17); Calcium 7.7 mg/dl (8.4-10.2); Carbon Dioxide 30 mmol/L (22-30); Chloride 101 mmol/L (98-107); Estimated Creatinine Clearance 73 ml/min; Glucose 115 mg/dl (70-99); Potassium 3.8 mmol/L (3.5-5.1); Sodium 139 mmol/L (135-145); Total Bilirubin 8.9 mg/dl (0.2-1.3); Total Protein 5.6 g/dl (6.3-8.2); eGFR > 60.00
--- NOTE | 2024-10-21 07:54 | W.PN.ID1 ---
Date of Service
Date of Service: October 21, 2024
Today's Communication
Continue Zosyn. Discontinue further vancomycin.
Assessment / Plan
Suspected aspiration pneumonia
Leukocytosis
Fevers
Transaminitis
- drug effect? Infectious process? Autoimmune? shock liver?
- improving
Elevated bilirubin
Cerebral Palsy
Hx Ovarian Cancer s/p Surgery and Hormone Treatment
Hx Seizure Disorder
Recommendations:
Continue with empiric Zosyn. Discontinue further vancomycin.
Follow white count and temperature curve.
Strict aspiration precautions.
Intermittent monitoring of chest imaging to follow for possible improvements.
Counseled family that given underlying comorbidities, patient is at high risk for recurrent aspiration.
Trend LFTs/bilirubin
����������������������������������������������������������
Chief Complaint
-: Leukocytosis and Pneumonia
Subjective / Review of Systems
Patient seen and examined. No significant events overnight. Father at the bedside.
Vital Signs / Physical Exam
Vital Signs
Vital Signs
Temp Pulse Resp BP Pulse Ox
100.0 F 88 23 111/77 98
10/21/24 04:35 10/21/24 06:00 10/21/24 06:00 10/21/24 06:00 10/21/24 04:00
Physical Exam
Constitutional: Comfortable, Chronically Ill and Non-toxic
Eyes: Sclera Anicteric
Cardiovascular: S1/S2; Negative S3/S4
Pulmonary: Coarse and Non Labored
Gastrointestinal: Soft and Non Distended
Extremities: Edema and Other (contracted); Negative Cyanosis or Erythema
Neurological: Other (Arousable to touch.)
Psychological: Calm
Objective Data
Lab Data
Lab Results
10/21/24 05:15
10/21/24 05:15
PT 20.0 Sec (11.4-14.6) H 10/21/24 05:15
INR 1.68 10/21/24 05:15
Estimated Creat Clear 73 ml/min 10/21/24 05:15
Lactic Acid 1.2 mmol/L (0.7-2.0) 10/16/24 06:02
Total Bilirubin 8.9 mg/dl (0.2-1.3) H 10/21/24 05:15
AST 321 U/L (14-36) H 10/21/24 05:15
ALT 235 U/L (0-35) H 10/21/24 05:15
Alkaline Phosphatase 138 U/L (38-126) H 10/21/24 05:15
Most recent labs reviewed.
Micro Results:
10/21/24 05:15 Blood Culture - Pending
Blood/Venous
10/21/24 05:15 Blood Culture - Pending
Blood/Venous
10/19/24 16:18 Blood Culture - Preliminary
Blood/Venous No Growth in 24 hours- Final report to follow
10/18/24 18:24 Yeast Culture - Preliminary
Vagina Culture in Progress
10/19/24 17:39 Urine Culture - Final
Urine
10/19/24 16:43 Influenza Types A & B (SAMARA) - Final
Nasal Swab Negative for Influenza A & B, NAAT
Negative results must be combined with clinical observations
and patient history.
Nucleic Acid Amplification test (NAAT)performed on the
[employer] ID NOW platform.
10/18/24 18:24 Chlamydia trachomatis (PCR) - Final
Vagina Neisseria gonorrhoeae (PCR) - Final
10/12/24 17:22 Influenza Types A & B (SAMARA) - Final
Nasal Swab Negative for Influenza A & B, NAAT
Negative results must be combined with clinical observations
and patient history.
Nucleic Acid Amplification test (NAAT)performed on the
[employer] ID NOW platform.
10/06/24 23:54 Urine Culture - Final
Urine Pseudomonas aeruginosa
Imaging:
10/19/2024 CXR (portable): Mild airspace disease in left lower lung field concerning for pneumonia. No visualized pneumothorax.
10/11/2024 CT abdomen/pelvis with contrast: Nonspecific pulmonary parenchymal opacity; consider edema or congestive heart failure. Diffuse pneumonia or nonspecific alveolitis can also be seen. Moderate gallbladder distention noted. Mild
distention without gross dilatation of proximal small bowel loops, with a few air contrast levels. Please see full dictation for additional detail.
--- NOTE | 2024-10-21 08:17 | W.PN.HOSP.TC ---
Today's Communication/Plan
-
Continue Zosyn
Continue to monitor in IMU
Continue Tube Feeds
Assessment / Plan
Assessment / Plan
Physical Exam
General: No Apparent Distress
Respiratory: Rhonchi bilaterally
Cardiac: Regular Rhythm and S1/S2
GI: Soft, Positive Bowel Sounds and Peg Tube
Neuro: Sleeping, at times opening her eyes
Psych: Calm
Assessment/Plan
48 F with cerebral palsy and frequent aspiration events now s/p PEG comes in with PEG malfunction where feeding was leaking from around PEG site. No vomiting. No diarrhea. Has been having regular bms. Found to have a UTI. Abdominal xray without
airfluid levels to suggest obstruction. Possible delayed emptying, ileus.
New Fever 100.9 F on October 19, 2024 afternoon
New Leukocytosis on 10/20/24
- COVID and Influenza negative
- Given complex medical condition, also check blood cultures
- Urinalysis suggestive of UTI
- Consulted infectious disease, appreciate evaluation and recommendations: continue Zosyn; Vancomycin stopped.
- Elevation of head of bed and aspiration precautions
- Continue monitoring in IMU as patient is at a high-risk for decompensation
Tube feeding leakage likely secondary to severe constipation
- At home on (On Compleat 1.5 45ml/hr with 50 ml/hr water flush for 16 hours daily) .
- Continue with tube feeding which she seems to tolerance .
- GI following.
- Tube study was performed and Contrast instilled through the patient's indwelling PEG tube outlines the stomach and proximal small bowel, confirming placement.
Constipation
-Recommended to continue with Colace, senna and continue MiraLAX twice daily.
-Also will need additional medication regimen prn .
-Status post Enema.
-AXR with improvement in stool burden .
-With possible ileus on CT imaging, consulted surgery: per surgery team, patient does NOT have symptoms of small bowel obstruction and surgeon reviewed films personally -- there is questionable
sigmoid narrowing; can consider Gastrograffin enema but would hold off for now as patient has been having bowel movements
Nonspecific pulmonary parenchymal opacity on CT Abdomen Pelvis
-Consulted cardio who said no need for Diuretics (which patient could not tolerate anyway due to her hypotension), they mentioned based on chart review no need for cardiology consult at this time
-Can consider echocardiogram and/or CXR
-Consulted pulm who mentioned opacities on chest imaging are chronic, they will come and go with aspiration
-CXR on 10/13/24: as per radiologist's report, showed: 'Low lung volumes with diffuse interstitial opacification and bibasilar opacities which may represent multifocal pneumonia or mild edema/atelectasis.'
Abnormal LFTs acute cholecystic hepatitis picture noted with elevated bilirubin and transaminitis.
Concern for Acute Liver Failure
Persistent Elevated LFTs
High INR
-LFTs are improving
-Hypotension possibly contributed to LFTs increase, less likely from autoimmune process
-Since patient's mental status is difficult to assess, have checked ammonia and lactic acid which are normal (this is a way to monitor for encephalopathy through bloodwork)
-Acute liver failure workup as per GI work up ordered (viral, autoimmune, hepatitis, Pillo's, A1AT, herediatry hemochromatosis, tylenol, CMV, EBV, HSV) majority pending, IgG high other immunoglobulins normal, ferritin 822 but acute phase reactant
does
have high iron sat 69% -- HFE gene sent to check for hemochromatosis
-I spoke on 10/12/[address] [place] [employer] [address] Anand (thread cutter) who mentioned she is doing a full liver workup and Dr. Anand spoke with liver transplant [facility] Dr. Ophelia Borja
-Workup so far negative, except elevated Ig
-No prior history of biliary disease according to the father
-Per Dr. Anand, no need for Flagyl since biliary is not the source
-Ammonia and lactic acid are normal, which is reassuring (if these were high, she would need to be transferred emergently)
-Completed N-acetylcysteine drip per [facility] protocol, as per gastroenterology
-Vitamin K was ordered (besides liver, malnutrition could be increasing the INR) -- subq (because poor iv access and pt cannot take po) was ordered on 10/12/24, another dose of Vitamin K ordered for 10/15/24 given due to slight
increase in INR
-Daily MELD labs
-No liver biopsy at this time, continue to monitor LFTs
Thrombocytopenia
-Possibly secondary to recent infection +/- drug induced from antibiotics
-Appreciate hematology evaluation and recommendations
-Okay to continue DVT prophylaxis with Lovenox
Pseudomonas UTI
-Followed-up on the susceptibility results.
-Received Cefepime for ~5 days (start date was 10/08/24)
Vaginal Discharge
-Diflucan will not be a good idea given elevated liver function tests AST and ALT
-Consulted gynecology, appreciate their evaluation and recommendations -- see note from 10/18/24
Chronic Hypotension
- Mostly of the systolics are in 90s at home too per patient's father
- Continue with midodrine
Seizure Disorder
- Continue clobazam and oxcarbazepine
Cerebral palsy with functional quadriplegia
Chronic dysphagia status post PEG tube
Chronic hypotension with midodrine
History of ovarian cancer status post surgery
DVT Prophylaxis: Lovenox subq
Code status - Full Code
Discussed with patient's father
Anticipated Discharge: > 48 hours
Subjective/Interval History
-
Date of Service: October 21, 2024
Patient was seen and examined. Per patient's parents, patient was looking better today.
Objective Data
-
Labs:
Laboratory Results
10/21/24
05:15
WBC 8.4
Hgb 10.9 L
Hct 34.1 L
Plt Count 152
PT 20.0 H
INR 1.68
Sodium 139
Potassium 3.8
Chloride 101
Carbon Dioxide 30
BUN 19 H
Creatinine 0.7
Glucose 115 H
Calcium 7.7 L
Total Bilirubin 8.9 H
AST 321 H
ALT 235 H
Alkaline Phosphatase 138 H
Vital Signs:
Vital Signs
Temp Pulse Resp BP Pulse Ox
100.0 F 88 23 111/77 98
10/21/24 04:35 10/21/24 06:00 10/21/24 06:00 10/21/24 06:00 10/21/24 04:00
I&O
10/20/24 10/21/24 10/22/24
06:59 06:59 06:59
Intake Total 1705 / 1705 1040 / 1040
Output Total 100 / 100
Balance 1605 / 1605 1040 / 1040
--- NOTE | 2024-10-21 09:31 | W.PN.PUL3 ---
Today's Communication / Plan
-
Follow up blood Cx (collected this AM)
Antibiotics - now on Zosyn since 10/19
Mucus clearing attempts
Aspiration precautions
Supplemental O2 titrating to keep SpO2 >90-94%
Assessment
-
48-year-old female with previous history of cerebral palsy, seizures, functional quadriplegia, nonverbal at baseline, recurrent aspiration status post PEG placement presenting to ER from home with concern for PEG tube malfunction. She is
admitted on 10/07/2024 undergoing workup for abnormal liver enzymes as well. She had a CT abdomen pelvis which indicates small groundglass opacities in the basilar portion of the lung. She has a history of abnormal chest imaging due to chronic
aspiration.
Impression:
Recurrent aspiration
Chronic abnormal chest imaging, GGOs
Chronic hypoxic respiratory failure on nasal cannula, 2L (baseline)
PEG malfunction
Transaminitis with hyperbilirubinemia � improving
Conditions present prior to admission:
Chronic dysphagia status post PEG
Recurrent aspiration pneumonia
Cerebral palsy with functional quadriplegia
Nonverbal
Seizure disorder
Esophageal web
Hypertension
Ovarian cancer status post total abdominal hysterectomy and oophorectomy
Vagus nerve stimulator implant
Appendectomy
Plan
Recurrent decompensation likely due to recurrent aspiration pneumonia difficulties mobilizing her secretions.
Continue supplemental oxygen and titrate to keep SpO2 >90-94%
Head of bed elevation.
Aspiration precautions.
Mucolytics
Deep suction-airway clearance measures are limited due to patient's cognitive function
Nebulizers
Follow radiographically.
Recheck cultures (blood cultures rechecked this morning)
Infectious disease consulted and recommendations appreciated.
Antibiotics per infectious disease-vancomycin and Zosyn initiated
Follow leukocytosis and temperature curve
Follow-up LFTs.
Continue those of care discussion-currently a full code-hopefully we can avoid intubation and mechanical ventilation though her respiratory status quite tenuous.
Dr. Hagan updated mother at the bedside
Pulmonary service will continue to follow along
Previous speech therapy evaluations:
Prior VSE 04/14/24- Deep penetration of thin liquids with no aspiration noted. Patient presents with moderate oral dysphagia and mild pharyngeal dysphagia, similar to recent study.
Supraglottic penetration (PAS 3) noted with thin liquids via consecutive straw sips.
Speech therapy evaluation 06/13/24- Patient exhibits clinical signs of oropharyngeal dysphagia, likely chronic related to Cerebral Palsy and acutely exacerbated by aspiration pneumonia.
Patient remains at high for aspiration and related complications given current tenuous pulmonary status, lethargy, decreased mobility at baseline, and poor oral hygiene.
Patient also is at high risk for post-prandial aspiration given esophageal web and PEG tube feedings, with patient's father reporting 2-3 episodes of regurgitation of tube feedings 2 weeks ago.
At this time, recommending NPO with PEG tube for all nutrition/medication/hydration, as patient appears with more severe oropharyngeal dysphagia than during last admission due to acuity of illness at this time.
Suspect when patient improves medically, pt may be able to safely tolerate puree textures and Mildly-thick liquids for pleasure
Family then refused further speech eval
Diagnostic Data
Chest X-Ray: 06/15/24- Airspace opacities in the left midlung suspicious for pneumonia. Right lung is grossly clear.
06/12/24- 1. Moderate-sized airspace opacities in the right mid/lower lung and in the left lower lobe suspicious for bilateral pneumonia.
2. Severe bowing deformities of both humeral diaphyses which appear unchanged.
04/12/24- No acute disease of the chest. No definitive pneumonia on this plain film examination.
CT Scan: CHEST 03/17/24- Bilateral pneumonia. Large amount of stool in the colon consistent with constipation.
Multiple bilateral hypodense lesions in the kidneys consistent with cysts. Mild caliectasis in the right kidney.
Diffuse urinary bladder wall thickening consistent with the history of UTI.
Echo: 04/11/24-Normal LV size and function with no regional wall motion abnormalities. LVEF is 55 to 60% by visual estimation. Normal diastolic function. Normal right ventricular size and function. No significant valvular disease.
No prior study available for comparison.
Reports and relevant images were personally reviewed.
Total time spent today was 56 minutes for this encounter. Time includes reviewing laboratory test/imaging results, reviewing pertinent medical records, obtaining and reviewing medical history, performing an appropriate exam, ordering medications,
tests and procedures. Time also includes documentation of this encounter, coordinating patient care and communicating with other healthcare professionals. Total time does not include separately billed tests performed on this date of service.
Subjective Data
-
Date of Service:
Date of Service: October 21, 2024
Chief Complaint: Pulmonary Follow Up (Abnormal chest x-ray) and Dyspnea Follow Up
Subjective:
Patient seen and evaluated today at bedside, and patient's brother, Hi, at bedside. All questions were answered. She is currently breathing comfortably on 2 L/min saturating 99%, heart rate 77 and BP 113/76.
Review of Systems
General: Other (Unable to obtain given patient's clinical status/nonverbal)
Objective Data
Data Reviewed
Vital Signs / I&O / Oxygen:
Vital Signs
Temp Pulse Resp BP Pulse Ox
99.2 F 88 20 109/67 97
10/21/24 09:03 10/21/24 08:00 10/21/24 08:00 10/21/24 08:00 10/21/24 08:00
Intake and Output
10/20/24 10/21/24 10/22/24
06:59 06:59 06:59
Intake Total 1705 / 1705 1040 / 1040
Output Total 100 / 100
Balance 1605 / 1605 1040 / 1040
SaO2 97
Nasal Cannula flow liters per 4
minute
Physical Exam
General: Respiratory Distress (negative), Comfortable, Chills (negative) and Sweats (negative)
HEENT: Normocephalic and Anicteric
Cardiovascular: Regular Rhythm, Murmur (n) and Peripheral Edema (+1 lower extremity pitting edema bilaterally)
Respiratory: Wheeze (negative), Crackles (negative), Rhonchi (Bilateral) and Non-Labored Respirations
GI: Soft, Non Distended, Non Tender and Normal Bowel Sounds
Neurology: Awake, Alert and Tremors (negative)
Skin: Warm, Dry, Cyanosis (n) and Jaundice (n)
Labs/Micro/Reports
Lab Data
10/21/24 05:15
10/21/24 05:15
Laboratory Results
10/21/24
05:15
PT 20.0 H
INR 1.68
Microbiology
10/19/24 16:18 Blood/Venous Blood Culture - Preliminary
No Growth in 24 hours- Final report to follow
10/18/24 18:24 Vagina Yeast Culture - Preliminary
Culture in Progress
10/19/24 17:39 Urine Urine Culture - Final
10/19/24 16:43 Nasal Swab Influenza Types A & B (SAMARA) - Final
Negative for Influenza A & B, NAAT
Negative results must be combined with clinical observations
and patient history.
Nucleic Acid Amplification test (NAAT)performed on the
[employer] platform.
10/18/24 18:24 Vagina Chlamydia trachomatis (PCR) - Final
10/18/24 18:24 Vagina Neisseria gonorrhoeae (PCR) - Final
[2024-10-21] MEDS: DESENEX/MITRAZOL/ZEASORB 1 APPLIC TOPICAL ×2 (10:41→20:20)
[2024-10-21] MEDS: MIRALAX 17 GRAMS TUBE ×2 (10:42→20:19)
[2024-10-21] MEDS: SENNA SYRUP 8.8 MG TUBE ×2 (10:42→20:19)
[2024-10-21] MEDS: ProAmatine 15 MG TUBE ×2 (10:43→17:27)
[2024-10-21] MEDS: SINGULAIR 10 MG TUBE (10:44)
[2024-10-21] MEDS: TRILEPTAL 600 MG TUBE ×2 (10:44→20:20)
[2024-10-21] MEDS: ONFI 10 MG TUBE ×2 (10:44→20:20)
--- NOTE | 2024-10-21 11:48 | W.PN.GI.CBS2 ---
Today's Communication / Plan
-
trend lfts
Assessment / Plan
-
1. Elevated transaminases most likely related to shock liver Transaminases are trending down and hopefully bilirubin has peaked and should start to trend down soon. All her other labs were unremarkable.
Viral hepatitis serologies were negative, EDGAR, AMA, ASMA, Anti LKM1 negative, ceruloplasmin normal, alpha-1 antitrypsin was normal, SPEP normal, EBV IgG antibody was positive, early antibody was positive unclear if she probably had mono. may need to
consider liver biopsy if they start to trend up again she did receive a course of N-acetylcysteine also. LFTS are trending down
2. Chronic constipation continue bowel regimen Miralax and senna, tolerating TF.
3. recurrent aspiration pneumonia and is on antibiotics noted input from ID
trend LFTS, will s/o and will be available as needed
Subjective
Subjective
Date of Service: October 21, 2024
Patient appears more awake today and fever is resolving on antibiotics, tolerating tube feeds, LFTs are trending down
Objective
Data Reviewed
Laboratory Data:
Laboratory Results
10/21/24 05:15
10/21/24 05:15
Laboratory Results
PT 20.0 Sec (11.4-14.6) H 10/21/24 05:15
INR 1.68 10/21/24 05:15
Magnesium 2.1 mg/dl (1.6-2.3) 10/20/24 05:01
Total Bilirubin 8.9 mg/dl (0.2-1.3) H 10/21/24 05:15
AST 321 U/L (14-36) H 10/21/24 05:15
ALT 235 U/L (0-35) H 10/21/24 05:15
Alkaline Phosphatase 138 U/L (38-126) H 10/21/24 05:15
Lipase 113 U/L (23-300) 10/09/24 08:25
Vital Signs and I&O:
Vital Signs
Temp Pulse Resp BP Pulse Ox
99.2 F 88 21 110/64 97
10/21/24 09:03 10/21/24 10:00 10/21/24 10:00 10/21/24 10:00 10/21/24 10:00
I&O
10/20/24 10/21/24 10/22/24
06:59 06:59 06:59
Intake Total 1705 / 1705 1040 / 1040
Output Total 100 / 100
Balance 1605 / 1605 1040 / 1040
Physical Exam
Physical Exam
Cardiology: Normal Sinus Rhythm
Pulmonary: Rales (Few crackles and occasional rhonchi)
GI: Soft, Non Distended, Non Tender, Normal Bowel Sounds and Other (PEG site is clean)
[2024-10-21] MEDS: LOVENOX 40 MG SC (17:27)
[2024-10-21] MEDS: FLUSH (NSS) 1 FLUSH IV (17:29)
[2024-10-21] MEDS: ROBITUSSIN 100 MG TUBE (20:19)
[2024-10-21] MEDS: FLUSH (NSS) 6 FLUSH IV (22:52)
[2024-10-22] VITALS (14 sets, daily range): BP systolic 84–100; BP diastolic 51–68
[2024-10-22] MEDS: ZOSYN 50 IV ×4 (03:00→21:47)
[2024-10-22 04:44] LABS: INR 1.69; PT 20.1 Sec (11.4-14.6)
[2024-10-22 04:55] LABS: Ammonia 10 umol/L (9-30)
[2024-10-22 04:56] LABS: ALT (SGPT) 184 U/L (0-35); AST (SGOT) 291 U/L (14-36); Albumin 1.9 g/dl (3.5-5.0); Alkaline Phosphatase 117 U/L (38-126); Blood Urea Nitrogen 22 mg/dl (7-17); Calcium 7.7 mg/dl (8.4-10.2); Carbon Dioxide 30 mmol/L (22-30); Chloride 102 mmol/L (98-107); Estimated Creatinine Clearance 86 ml/min; Glucose 75 mg/dl (70-99); Potassium 3.6 mmol/L (3.5-5.1); Sodium 137 mmol/L (135-145); Total Bilirubin 8.8 mg/dl (0.2-1.3); Total Protein 4.9 g/dl (6.3-8.2); eGFR > 60.00
[2024-10-22 04:58] LABS: % Basophils 0.8 % (0-2); % Eosinophils 3.1 % (0-6); % Immature Granulocytes 0.8 % (0-0.5); % Lymphocytes 24.1 % (20.5-51.1); % Neutrophils 51.2 % (42.2-75.2); Absolute Basophils 0.1 10^3/uL (0-0.2); Absolute Eosinophils 0.2 10^3/uL (0-0.7); Absolute Immature Granulocytes 0.1 10^3/uL (0-0.05); Absolute Lymphocytes 1.5 10^3/uL (1.2-3.4); Absolute Monocytes 1.2 10^3/uL (0.1-0.6); Absolute Neutrophils 3.1 10^3/uL (1.4-6.5); Hematocrit 30.9 % (37.0-47.0); Hemoglobin 9.9 g/dL (12.0-16.0); Mean Corpuscular Hgb 30.8 pg (27.0-31.0); Mean Corpuscular Volume 96.3 fL (81.0-99.0); Mean Platelet Volume 12.9 fL (7.4-10.4); Nucleated Red Blood Cells % 0 %; Platelet Count 151 10^3/uL (130-400); Red Blood Cell Count 3.21 10^6/uL (4.20-5.40); White Blood Cell Count 6.1 10^3/uL (4.8-10.8)
--- NOTE | 2024-10-22 07:45 | PTCARENOTE ---
report received. pt orientation at baseline. jevity 1.5 @45ml/hr. peg functioning. family at bed side. pt remains jaundice. call velazquez in reach.
[2024-10-22] MEDS: SINGULAIR 10 MG TUBE (08:13)
[2024-10-22] MEDS: MIRALAX 17 GRAMS TUBE ×2 (08:13→19:42)
[2024-10-22] MEDS: DESENEX/MITRAZOL/ZEASORB 1 APPLIC TOPICAL ×2 (08:13→19:42)
[2024-10-22] MEDS: TRILEPTAL 600 MG TUBE ×2 (08:13→19:42)
[2024-10-22] MEDS: ProAmatine 15 MG TUBE ×2 (08:13→15:58)
[2024-10-22] MEDS: SENNA SYRUP 8.8 MG TUBE ×2 (08:13→19:42)
[2024-10-22] MEDS: ONFI 10 MG TUBE ×2 (08:14→19:42)
--- NOTE | 2024-10-22 09:33 | W.PN.ID1 ---
Date of Service
Date of Service: October 22, 2024
Today's Communication
Continue antibiotics.
Assessment / Plan
Suspected aspiration pneumonia
Leukocytosis
Fevers
� Improved
Transaminitis
- drug effect? Infectious process? Autoimmune? shock liver?
- improving
Elevated bilirubin
Cerebral Palsy
Hx Ovarian Cancer s/p Surgery and Hormone Treatment
Hx Seizure Disorder
Recommendations:
Continue with empiric Zosyn (d#4)
Follow white count and temperature curve.
Strict aspiration precautions.
Intermittent monitoring of chest imaging to follow for possible improvements.
Counseled family that given underlying comorbidities, patient is at high risk for recurrent aspiration.
Trend LFTs/bilirubin
����������������������������������������������������������
Chief Complaint
-: Leukocytosis and Pneumonia
Subjective / Review of Systems
Patient seen and examined. No events overnight.
Vital Signs / Physical Exam
Vital Signs
Vital Signs
Temp Pulse Resp BP Pulse Ox
97.8 F 74 16 90/52 97
10/22/24 07:05 10/22/24 06:02 10/22/24 06:02 10/22/24 06:02 10/22/24 06:02
Physical Exam
Constitutional: Comfortable, Chronically Ill and Non-toxic
Eyes: Sclera Anicteric
Cardiovascular: S1/S2; Negative S3/S4
Pulmonary: Non Labored
Gastrointestinal: Soft and Non Distended
Extremities: Edema and Other (contracted); Negative Cyanosis or Erythema
Neurological: Other (Arousable to touch.)
Psychological: Calm
Objective Data
Lab Data
Lab Results
10/22/24 04:23
10/22/24 04:23
PT 20.1 Sec (11.4-14.6) H 10/22/24 04:23
INR 1.69 10/22/24 04:23
Estimated Creat Clear 86 ml/min 10/22/24 04:23
Lactic Acid 1.2 mmol/L (0.7-2.0) 10/16/24 06:02
Total Bilirubin 8.8 mg/dl (0.2-1.3) H 10/22/24 04:23
AST 291 U/L (14-36) H 10/22/24 04:23
ALT 184 U/L (0-35) H 10/22/24 04:23
Alkaline Phosphatase 117 U/L (38-126) 10/22/24 04:23
Most recent labs reviewed.
Micro Results:
10/21/24 05:15 Blood Culture - Preliminary
Blood/Venous No Growth in 24 hours- Final report to follow
10/21/24 05:15 Blood Culture - Preliminary
Blood/Venous No Growth in 24 hours- Final report to follow
10/19/24 16:18 Blood Culture - Preliminary
Blood/Venous No Growth in 48 hours- Final report to follow
10/18/24 18:24 Yeast Culture - Preliminary
Vagina NO YEAST ISOLATED.
10/19/24 17:39 Urine Culture - Final
Urine
10/19/24 16:43 Influenza Types A & B (SAMARA) - Final
Nasal Swab Negative for Influenza A & B, NAAT
Negative results must be combined with clinical observations
and patient history.
Nucleic Acid Amplification test (NAAT)performed on the
[employer] platform.
10/18/24 18:24 Chlamydia trachomatis (PCR) - Final
Vagina Neisseria gonorrhoeae (PCR) - Final
10/12/24 17:22 Influenza Types A & B (SAMARA) - Final
Nasal Swab Negative for Influenza A & B, NAAT
Negative results must be combined with clinical observations
and patient history.
Nucleic Acid Amplification test (NAAT)performed on the
[employer] platform.
10/06/24 23:54 Urine Culture - Final
Urine Pseudomonas aeruginosa
Imaging:
10/19/2024 CXR (portable): Mild airspace disease in left lower lung field concerning for pneumonia. No visualized pneumothorax.
10/11/2024 CT abdomen/pelvis with contrast: Nonspecific pulmonary parenchymal opacity; consider edema or congestive heart failure. Diffuse pneumonia or nonspecific alveolitis can also be seen. Moderate gallbladder distention noted. Mild
distention without gross dilatation of proximal small bowel loops, with a few air contrast levels. Please see full dictation for additional detail.
--- NOTE | 2024-10-22 09:34 | W.PN.PUL3 ---
Today's Communication / Plan
-
Follow up blood Cx (collected 10/21 - )
Antibiotics - now on Zosyn since 10/19 and is s/p IV vanc
Mucous clearing attempts
Aspiration precautions
Supplemental O2 titrating to keep SpO2 >90-94%
Assessment
-
48-year-old female with previous history of cerebral palsy, seizures, functional quadriplegia, nonverbal at baseline, recurrent aspiration status post PEG placement presenting to ER from home with concern for PEG tube malfunction. She is
admitted on 10/07/2024 undergoing workup for abnormal liver enzymes as well. She had a CT abdomen pelvis which indicates small groundglass opacities in the basilar portion of the lung. She has a history of abnormal chest imaging due to chronic
aspiration.
Impression:
Recurrent aspiration
Chronic abnormal chest imaging, GGOs
Chronic hypoxic respiratory failure on nasal cannula, 2L (baseline)
PEG malfunction
Transaminitis with hyperbilirubinemia � improving
Conditions present prior to admission:
Chronic dysphagia status post PEG
Recurrent aspiration pneumonia
Cerebral palsy with functional quadriplegia
Nonverbal
Seizure disorder
Esophageal web
Hypertension
Ovarian cancer status post total abdominal hysterectomy and oophorectomy
Vagus nerve stimulator implant
Appendectomy
Plan
Recurrent decompensation likely due to recurrent aspiration pneumonia difficulties mobilizing her secretions.
Continue supplemental oxygen and titrate to keep SpO2 >90-94%
Head of bed elevation.
Aspiration precautions.
Mucolytics
Deep suction-airway clearance measures are limited due to patient's cognitive function
Nebulizers
Follow radiographically.
Recheck cultures (blood cultures rechecked 10/21 - TD)
Infectious disease consulted and recommendations appreciated.
Antibiotics per infectious disease-Zosyn initiated; s/p IV vanco from 10/19 - 10/21
Follow leukocytosis and temperature curve
Follow-up LFTs.
Continue those of care discussion-currently a full code-hopefully we can avoid intubation and mechanical ventilation though her respiratory status quite tenuous.
Dr. Hagan updated mother at the bedside
Pulmonary service will continue to follow along
Previous speech therapy evaluations:
Prior VSE 04/14/24- Deep penetration of thin liquids with no aspiration noted. Patient presents with moderate oral dysphagia and mild pharyngeal dysphagia, similar to recent study.
Supraglottic penetration (PAS 3) noted with thin liquids via consecutive straw sips.
Speech therapy evaluation 06/13/24- Patient exhibits clinical signs of oropharyngeal dysphagia, likely chronic related to Cerebral Palsy and acutely exacerbated by aspiration pneumonia.
Patient remains at high for aspiration and related complications given current tenuous pulmonary status, lethargy, decreased mobility at baseline, and poor oral hygiene.
Patient also is at high risk for post-prandial aspiration given esophageal web and PEG tube feedings, with patient's father reporting 2-3 episodes of regurgitation of tube feedings 2 weeks ago.
At this time, recommending NPO with PEG tube for all nutrition/medication/hydration, as patient appears with more severe oropharyngeal dysphagia than during last admission due to acuity of illness at this time.
Suspect when patient improves medically, pt may be able to safely tolerate puree textures and Mildly-thick liquids for pleasure
Family then refused further speech eval
Diagnostic Data
Chest X-Ray: 06/15/24- Airspace opacities in the left midlung suspicious for pneumonia. Right lung is grossly clear.
06/12/24- 1. Moderate-sized airspace opacities in the right mid/lower lung and in the left lower lobe suspicious for bilateral pneumonia.
2. Severe bowing deformities of both humeral diaphyses which appear unchanged.
04/12/24- No acute disease of the chest. No definitive pneumonia on this plain film examination.
CT Scan: CHEST 03/17/24- Bilateral pneumonia. Large amount of stool in the colon consistent with constipation.
Multiple bilateral hypodense lesions in the kidneys consistent with cysts. Mild caliectasis in the right kidney.
Diffuse urinary bladder wall thickening consistent with the history of UTI.
Echo: 04/11/24-Normal LV size and function with no regional wall motion abnormalities. LVEF is 55 to 60% by visual estimation. Normal diastolic function. Normal right ventricular size and function. No significant valvular disease.
No prior study available for comparison.
Reports and relevant images were personally reviewed.
Total time spent today was 52 minutes for this encounter. Time includes reviewing laboratory test/imaging results, reviewing pertinent medical records, obtaining and reviewing medical history, performing an appropriate exam, ordering medications,
tests and procedures. Time also includes documentation of this encounter, coordinating patient care and communicating with other healthcare professionals. Total time does not include separately billed tests performed on this date of service.
Subjective Data
-
Date of Service:
Date of Service: October 22, 2024
Chief Complaint: Pulmonary Follow Up (Abnormal chest x-ray) and Dyspnea Follow Up
Subjective:
Patient seen and evaluated today at bedside. Parents at bedside and I answered both their questions. Patient on 2 L/min saturating 98%, heart rate 69. She is in no acute distress, resting comfortably and appears alert.
Review of Systems
General: Other (Unable to obtain given patient's acute clinical status/nonverbal)
Objective Data
Data Reviewed
Vital Signs / I&O / Oxygen:
Vital Signs
Temp Pulse Resp BP Pulse Ox
97.8 F 74 16 90/52 97
10/22/24 07:05 10/22/24 06:02 10/22/24 06:02 10/22/24 06:02 10/22/24 06:02
Intake and Output
10/21/24 10/22/24 10/23/24
06:59 06:59 06:59
Intake Total 2079
Balance 2079
SaO2 97
Nasal Cannula flow liters per 2
minute
Physical Exam
General: Respiratory Distress (negative), Comfortable, Chills (negative) and Sweats (negative)
HEENT: Normocephalic and Anicteric
Cardiovascular: Regular Rhythm, Murmur (n) and Peripheral Edema (+2 lower extremity non-pitting edema bilaterally)
Respiratory: Wheeze (negative), Crackles (negative), Rhonchi (Bilateral) and Non-Labored Respirations
GI: Soft, Non Distended, Non Tender and Normal Bowel Sounds
Neurology: Awake, Alert and Tremors (negative)
Skin: Warm, Dry, Cyanosis (n) and Jaundice (n)
Labs/Micro/Reports
Lab Data
10/22/24 04:23
10/22/24 04:23
Laboratory Results
10/22/24
04:23
PT 20.1 H
INR 1.69
Microbiology
10/21/24 05:15 Blood/Venous Blood Culture - Preliminary
No Growth in 24 hours- Final report to follow
10/21/24 05:15 Blood/Venous Blood Culture - Preliminary
No Growth in 24 hours- Final report to follow
10/19/24 16:18 Blood/Venous Blood Culture - Preliminary
No Growth in 48 hours- Final report to follow
10/18/24 18:24 Vagina Yeast Culture - Preliminary
NO YEAST ISOLATED.
10/19/24 17:39 Urine Urine Culture - Final
10/19/24 16:43 Nasal Swab Influenza Types A & B (SAMARA) - Final
Negative for Influenza A & B, NAAT
Negative results must be combined with clinical observations
and patient history.
Nucleic Acid Amplification test (NAAT)performed on the
[employer] platform.
10/18/24 18:24 Vagina Chlamydia trachomatis (PCR) - Final
10/18/24 18:24 Vagina Neisseria gonorrhoeae (PCR) - Final
--- NOTE | 2024-10-22 14:10 | W.PN.HOSP.TC ---
Today's Communication/Plan
-
Continue Zosyn, appreciate infectious disease and pulmonary
Oxygen requirement at baseline 2 L
Assessment / Plan
Assessment / Plan
Physical Exam
General: No Apparent Distress
Respiratory: Rhonchi bilaterally - IMPROVED
Cardiac: Regular Rhythm and S1/S2
GI: Soft, Positive Bowel Sounds and Peg Tube
Neuro: Sleeping, at times opening her eyes
Psych: Calm
Assessment/Plan
48 F with cerebral palsy and frequent aspiration events now s/p PEG comes in with PEG malfunction where feeding was leaking from around PEG site. No vomiting. No diarrhea. Has been having regular bms. Found to have a UTI. Abdominal xray without
airfluid levels to suggest obstruction. Possible delayed emptying, ileus.
New Fever 100.9 F on October 19, 2024 afternoon
New Leukocytosis on 10/20/24
Pneumonia - suspected aspiration pneumonia
- Last fever was on 10/20/24 at 16:45
- COVID and Influenza negative
- Given complex medical condition, also ordered blood cultures: initial blood culture and repeat blood cultures with no growth to date
- Urinalysis suggestive of UTI
- Consulted infectious disease, appreciate evaluation and recommendations: continue Zosyn; Vancomycin stopped.
- Elevation of head of bed and aspiration precautions
- Continue monitoring in IMU as patient is at a high-risk for decompensation at this time as she recovers from pneumonia
Tube feeding leakage likely secondary to severe constipation
- At home on (On Compleat 1.5 45ml/hr with 50 ml/hr water flush for 16 hours daily) .
- Continue with tube feeding which she seems to tolerance .
- GI following.
- Tube study was performed and Contrast instilled through the patient's indwelling PEG tube outlines the stomach and proximal small bowel, confirming placement.
Constipation
-Recommended to continue with Colace, senna and continue MiraLAX twice daily.
-Also will need additional medication regimen prn .
-Status post Enema.
-AXR with improvement in stool burden .
-With possible ileus on CT imaging, consulted surgery: per surgery team, patient does NOT have symptoms of small bowel obstruction and surgeon reviewed films personally -- there is questionable
sigmoid narrowing; can consider Gastrograffin enema but would hold off for now as patient has been having bowel movements
Nonspecific pulmonary parenchymal opacity on CT Abdomen Pelvis
-Consulted cardio who said no need for Diuretics (which patient could not tolerate anyway due to her hypotension), they mentioned based on chart review no need for cardiology consult at this time
-Can consider echocardiogram and/or CXR
-Consulted pulm who mentioned opacities on chest imaging are chronic, they will come and go with aspiration
-CXR on 10/13/24: as per radiologist's report, showed: 'Low lung volumes with diffuse interstitial opacification and bibasilar opacities which may represent multifocal pneumonia or mild edema/atelectasis.'
Abnormal LFTs acute cholecystic hepatitis picture noted with elevated bilirubin and transaminitis.
Concern for Acute Liver Failure
Persistent Elevated LFTs
High INR
-LFTs continue to improved
-Hypotension possibly contributed to LFTs increase, less likely from autoimmune process
-Since patient's mental status is difficult to assess, have checked ammonia and lactic acid which are normal (this is a way to monitor for encephalopathy through bloodwork)
-Acute liver failure workup as per GI work up ordered (viral, autoimmune, hepatitis, Pillo's, A1AT, herediatry hemochromatosis, tylenol, CMV, EBV, HSV) majority pending, IgG high other immunoglobulins normal, ferritin 822
but acute phase reactant does have high iron sat 69% -- HFE gene sent to check for hemochromatosis
-I spoke on 10/12/24 via [place] [facility] with Dr. Anand (paperhanger and painter) who mentioned she was doing a full liver workup and Dr. Anand spoke with liver transplant [facility], Dr. Jacinto
-Workup so far negative, except elevated Ig
-No prior history of biliary disease according to the father
-Per Dr. Anand, no need for Flagyl since biliary is not the source
-Ammonia and lactic acid are normal, which is reassuring (if these were high, she would need to be transferred emergently)
-Completed N-acetylcysteine drip per RETIREMENT protocol, as per gastroenterology
-Vitamin K was ordered (besides liver, malnutrition could be increasing the INR) -- subq (because poor iv access and pt cannot take po) was ordered on 10/12/24, another dose of Vitamin K ordered for 10/15/24 given due to
slight increase in INR
-Daily MELD labs
-No liver biopsy at this time, continue to monitor LFTs
Thrombocytopenia - RESOLVED
-Possibly secondary to recent infection +/- drug induced from antibiotics
-Appreciate hematology evaluation and recommendations
-Okay to continue DVT prophylaxis with Lovenox
Pseudomonas UTI
-Followed-up on the susceptibility results.
-Received Cefepime for ~5 days (start date was 10/08/24)
Vaginal Discharge
-Diflucan will not be a good idea given elevated liver function tests AST and ALT
-Consulted gynecology, appreciate their evaluation and recommendations -- please see their note from 10/18/24
Chronic Hypotension
- Mostly of the systolics are in 90s at home too per patient's father
- Continue with midodrine
Seizure Disorder
- Continue clobazam and oxcarbazepine
Cerebral palsy with functional quadriplegia
Chronic dysphagia status post PEG tube
Chronic hypotension with midodrine
History of ovarian cancer status post surgery
DVT Prophylaxis: Lovenox subq
Code status - Full Code
Discussed with patient's Mother
Anticipated Discharge: > 48 hours
Subjective/Interval History
-
Date of Service: October 22, 2024
Patient was seen and examined. She was sleeping relatively comfortably, she appeared to be doing somewhat better today.
Objective Data
-
Labs:
Laboratory Results
10/22/24
04:23
WBC 6.1
Hgb 9.9 L
Hct 30.9 L
Plt Count 151
PT 20.1 H
INR 1.69
Sodium 137
Potassium 3.6
Chloride 102
Carbon Dioxide 30
BUN 22 H
Creatinine 0.6
Glucose 75
Calcium 7.7 L
Total Bilirubin 8.8 H
AST 291 H
ALT 184 H
Alkaline Phosphatase 117
Vital Signs:
Vital Signs
Temp Pulse Resp BP Pulse Ox
97.8 F 61 16 100/64 97
10/22/24 07:05 10/22/24 10:00 10/22/24 10:00 10/22/24 10:00 10/22/24 10:00
I&O
10/21/24 10/22/24 10/23/24
06:59 06:59 06:59
Intake Total 2079
Balance 2079
[2024-10-22] MEDS: LOVENOX 40 MG SC (17:51)
[2024-10-23] VITALS (15 sets, daily range): BP systolic 84–109; BP diastolic 54–88
[2024-10-23] MEDS: ZOSYN 50 IV ×4 (04:25→21:49)
[2024-10-23 04:43] LABS: INR 1.59; PT 19.2 Sec (11.4-14.6)
[2024-10-23 04:54] LABS: Ammonia 27 umol/L (9-30)
[2024-10-23 04:58] LABS: % Basophils 0.8 % (0-2); % Eosinophils 3.9 % (0-6); % Immature Granulocytes 0.8 % (0-0.5); % Lymphocytes 19.2 % (20.5-51.1); % Monocytes 21.1 % (1.7-9.3); % Neutrophils 54.2 % (42.2-75.2); Absolute Basophils 0.1 10^3/uL (0-0.2); Absolute Eosinophils 0.3 10^3/uL (0-0.7); Absolute Immature Granulocytes 0.1 10^3/uL (0-0.05); Absolute Lymphocytes 1.3 10^3/uL (1.2-3.4); Absolute Monocytes 1.4 10^3/uL (0.1-0.6); Absolute Neutrophils 3.6 10^3/uL (1.4-6.5); Hematocrit 31.8 % (37.0-47.0); Hemoglobin 10.4 g/dL (12.0-16.0); Mean Corp Hgb Conc. 32.7 g/dL (33.0-37.0); Mean Corpuscular Hgb 30.5 pg (27.0-31.0); Mean Corpuscular Volume 93.3 fL (81.0-99.0); Mean Platelet Volume 12.8 fL (7.4-10.4); Nucleated Red Blood Cells % 0 %; Platelet Count 200 10^3/uL (130-400); Red Blood Cell Count 3.41 10^6/uL (4.20-5.40); Red Cell Dist. Width 19.8 % (11.5-14.5); White Blood Cell Count 6.6 10^3/uL (4.8-10.8)
[2024-10-23 05:14] LABS: ALT (SGPT) 167 U/L (0-35); AST (SGOT) 267 U/L (14-36); Albumin 2.1 g/dl (3.5-5.0); Alkaline Phosphatase 152 U/L (38-126); Blood Urea Nitrogen 21 mg/dl (7-17); Calcium 7.6 mg/dl (8.4-10.2); Carbon Dioxide 28 mmol/L (22-30); Chloride 104 mmol/L (98-107); Estimated Creatinine Clearance 86 ml/min; Glucose 127 mg/dl (70-99); Potassium 3.9 mmol/L (3.5-5.1); Sodium 138 mmol/L (135-145); Total Bilirubin 8.5 mg/dl (0.2-1.3); Total Protein 5.2 g/dl (6.3-8.2); eGFR > 60.00
[2024-10-23] MEDS: ProAmatine 15 MG TUBE (06:06)
--- NOTE | 2024-10-23 06:18 | PTCARENOTE ---
SBP 84 . MAP 68. 0800 dose of midodrine given now.
[2024-10-23 07:05] LABS: Magnesium 2.3 mg/dl (1.6-2.3)
[2024-10-23] MEDS: DESENEX/MITRAZOL/ZEASORB 1 APPLIC TOPICAL ×2 (08:14→20:23)
[2024-10-23] MEDS: SENNA SYRUP 8.8 MG TUBE ×2 (08:14→20:24)
[2024-10-23] MEDS: TRILEPTAL 600 MG TUBE ×2 (08:14→20:24)
[2024-10-23] MEDS: ONFI 10 MG TUBE ×2 (08:14→20:24)
[2024-10-23] MEDS: MIRALAX 17 GRAMS TUBE ×2 (08:14→20:23)
[2024-10-23] MEDS: SINGULAIR 10 MG TUBE (08:14)
[2024-10-23] MEDS: ROBITUSSIN 100 MG TUBE (08:18)
--- NOTE | 2024-10-23 08:55 | W.PN.HOSP.TC ---
Addendum entered and electronically signed by Horacio Gallagher MD 10/23/24 16:09:
Seen and examined by me independently in collaboration with the medical laboratory technical officer.
Lab data and imaging data reviewed.
Addendum as below :
Patient alert but nonverbal at baseline.
No distress noted. Saturating well on 1 L. Coarse breath sounds bilaterally on anterior auscultation.
Abdomen soft.
LFTs are improving. Unclear etiology. Multiple diagnoses entertained. So far GI workup has been negative. Unclear if she had recent EBV infection based on antibody for early antigen.
She has chronic hypotension on midodrine with systolics in 90s and at x 80s. Ischemic hepatitis was also entertained.
Check a cortisol level. Doubt if she had a cardiac event or new cardiomyopathy. Check echocardiogram for LV function.
DW father at bedside.
Original Note:
Today's Communication/Plan
-
addition of mucinex
change midodrine to 10 mg TID
Assessment / Plan
Assessment / Plan
48 F with cerebral palsy and frequent aspiration events now s/p PEG comes in with PEG malfunction where feeding was leaking from around PEG site. Patient has been having regular bowel movements. You leukocytosis found on 10/20, suspected aspiration
pneumonia.
#Aspiration pneumonia
Afebrile
COVID and influenza negative
Blood cultures show no growth
UA shows UTI
Per infectious disease continue Zosyn
Patient having significant phlegm production overnight, increase agreed patient's and suction
Started patient on Mucinex
Elevation of bed for aspiration precaution
#PEG tube displacement likely secondary to severe constipation
At home on (On Compleat 1.5 45ml/hr with 50 ml/hr water flush for 16 hours daily) .
Continue tube feeds
GI following
#Constipation
Continue Colace, senna and MiraLAX twice daily
Abdominal x-ray shows improvement in stool burden
Possible ileus on CT imaging. Surgery consulted and stated patient does not have symptoms of bowel obstruction. Can consider Gastrografin enema.
Patient currently having bowel movement
#Nonspecific pulmonary parenchymal opacity on CT Abdomen Pelvis
Consider echocardiogram and/or chest x-ray
Cardiology said no need for diuretics
Pulmonology stated opacities on chest imaging are chronic and wax and wane based on aspiration status
Chest x-ray shows low lung volumes with diffuse interstitial opacification bibasilar opacities
# Abnormal LFTs and concern for acute liver failure
Persistently elevated LFTs and high INR, downtrending
Hypotension possibly secondary to LFT increase from autoimmune process
Ammonia and lactic acid normal.
Acute liver failure workup per GI ordered
Since LFTs are downtrending, transfer to [place] deferred for later
Completed NAC drip per CUSTODIAL protocol
Vitamin K ordered and doses given on 10/04 and 10/15
Daily MELD labs
#Thrombocytopenia
Resolved
#Pseudomonas UTI
Received cefepime for 5 days
#Vaginal discharge
Consulted gynecology and recommendations made on 10/18
Diflucan poor option given elevated LFTs
#Chronic hypotension
Systolics are in 90s at home as well per family
Midodrine changed to 10 mg 3 times a day from 15 mg twice a day
#Seizure disorder
Continue clobazam and oxcarbazepine
#Cerebral palsy with functional dysplasia
#Chronic dysphagia status post PEG tube
#History of ovarian cancer status post surgery
DVT Prophylaxis: Lovenox subq
Code status - Full Code
patient's father at bedside
Anticipated Discharge: > 48 hours
Subjective/Interval History
-
Date of Service: October 23, 2024
48 F with cerebral palsy and frequent aspiration events now s/p PEG comes in with PEG malfunction where feeding was leaking from around PEG site. Patient has been having regular bowel movements. You leukocytosis found on 10/20, suspected aspiration
pneumonia. Overnight per her father she had no problems but sounds more 'gurgly.' He was having significant mucus production and required suction. He asked if she needed any supplemental breathing treatment. Blood pressure was also dropping so
nurse stated she had to give medications earlier than scheduled
Objective Data
-
Labs:
Laboratory Results
10/23/24
04:22
WBC 6.6
Hgb 10.4 L
Hct 31.8 L
Plt Count 200 D
PT 19.2 H
INR 1.59
Sodium 138
Potassium 3.9
Chloride 104
Carbon Dioxide 28
BUN 21 H
Creatinine 0.6
Glucose 127 H
Calcium 7.6 L
Total Bilirubin 8.5 H
AST 267 H
ALT 167 H
Alkaline Phosphatase 152 H
Vital Signs:
Vital Signs
Temp Pulse Resp BP Pulse Ox
98.8 F 82 18 82/59 100
10/23/24 03:00 10/23/24 06:06 10/23/24 06:01 10/23/24 06:06 10/23/24 06:01
I&O
10/22/24 10/23/24 10/24/24
06:59 06:59 06:59
Intake Total 2109 940 / 940
Balance 2109 940 / 940
Review of Systems
-
Unable to obtain full review of systems at this time due to: Patient Non-verbal
Physical Exam
-
General: Comfortable and Appears Chronically Ill
HEENT: Normocephalic
Respiratory: Rhonchi
GI: Soft and Peg Tube
Skin: Warm and Dry
Neuro: Sedated
Psych: Calm
Data Reviewed
-
Labs: Labs Reviewed by me and Discussed with Physician
Old Records: Reviewed
[2024-10-23] MEDS: ProAmatine 10 MG TUBE ×2 (12:47→17:24)
--- NOTE | 2024-10-23 14:25 | W.PN.ID1 ---
Date of Service
Date of Service: October 23, 2024
Today's Communication
Continue Zosyn.
Assessment / Plan
Suspected aspiration pneumonia
Leukocytosis
Fevers
� Improved
Transaminitis
- drug effect? Infectious process? Autoimmune? shock liver?
- improving
Elevated bilirubin
Cerebral Palsy
Hx Ovarian Cancer s/p Surgery and Hormone Treatment
Hx Seizure Disorder
Recommendations:
Continue with empiric Zosyn (d#5) to complete a 7-day course.
Follow white count and temperature curve.
Strict aspiration precautions.
Counseled family that given underlying comorbidities, patient is at high risk for recurrent aspiration.
Trend LFTs/bilirubin
����������������������������������������������������������
Chief Complaint
-: Leukocytosis and Pneumonia
Subjective / Review of Systems
Patient seen and examined. No significant changes overnight.
Review of Systems: No Fever
Vital Signs / Physical Exam
Vital Signs
Vital Signs
Temp Pulse Resp BP Pulse Ox
98.8 F 77 16 91/63 96
10/23/24 11:01 10/23/24 12:47 10/23/24 12:45 10/23/24 12:47 10/23/24 12:45
Physical Exam
Constitutional: Comfortable, Chronically Ill and Non-toxic
Eyes: Sclera Anicteric
Cardiovascular: S1/S2; Negative S3/S4
Pulmonary: Non Labored
Gastrointestinal: Soft and Non Distended
Extremities: Edema and Other (contracted); Negative Cyanosis or Erythema
Neurological: Other (Arousable to touch.)
Psychological: Calm
Objective Data
Lab Data
Lab Results
10/23/24 04:22
10/23/24 04:22
PT 19.2 Sec (11.4-14.6) H 10/23/24 04:22
INR 1.59 10/23/24 04:22
Estimated Creat Clear 86 ml/min 10/23/24 04:22
Lactic Acid 1.2 mmol/L (0.7-2.0) 10/16/24 06:02
Total Bilirubin 8.5 mg/dl (0.2-1.3) H 10/23/24 04:22
AST 267 U/L (14-36) H 10/23/24 04:22
ALT 167 U/L (0-35) H 10/23/24 04:22
Alkaline Phosphatase 152 U/L (38-126) H 10/23/24 04:22
Most recent labs reviewed.
Micro Results:
10/21/24 05:15 Blood Culture - Preliminary
Blood/Venous No Growth in 48 hours- Final report to follow
10/21/24 05:15 Blood Culture - Preliminary
Blood/Venous No Growth in 48 hours- Final report to follow
10/19/24 16:18 Blood Culture - Preliminary
Blood/Venous No Growth in 72 hours- Final report to follow
10/18/24 18:24 Yeast Culture - Final
Vagina NO YEAST ISOLATED.
10/19/24 17:39 Urine Culture - Final
Urine
10/19/24 16:43 Influenza Types A & B ([facility]ARA) - Final
Nasal Swab Negative for Influenza A & B, NAAT
Negative results must be combined with clinical observations
and patient history.
Nucleic Acid Amplification test (NAAT)performed on the
[employer] platform.
10/18/24 18:24 Chlamydia trachomatis (PCR) - Final
Vagina Neisseria gonorrhoeae (PCR) - Final
10/12/24 17:22 Influenza Types A & B (SAMARA) - Final
Nasal Swab Negative for Influenza A & B, NAAT
Negative results must be combined with clinical observations
and patient history.
Nucleic Acid Amplification test (NAAT)performed on the
[employer] platform.
10/06/24 23:54 Urine Culture - Final
Urine Pseudomonas aeruginosa
Imaging:
10/19/2024 CXR (portable): Mild airspace disease in left lower lung field concerning for pneumonia. No visualized pneumothorax.
10/11/2024 CT abdomen/pelvis with contrast: Nonspecific pulmonary parenchymal opacity; consider edema or congestive heart failure. Diffuse pneumonia or nonspecific alveolitis can also be seen. Moderate gallbladder distention noted. Mild
distention without gross dilatation of proximal small bowel loops, with a few air contrast levels. Please see full dictation for additional detail.
[2024-10-23 17:00] LABS: Cortisol, Random 4.8 ug/dl; TSH 3.71 uIU/ml (0.47-4.68)
[2024-10-23] MEDS: LOVENOX 40 MG SC (17:24)
--- NOTE | 2024-10-23 17:45 | CM ---
Patient with Hx cerebral palsy with functional quadriplegia, Chronic dysphagia/frequent aspiration events, PEG tube feeds, chronic O2. O2 1L. Jevity tube feeds. Receiving IV Abx. Per nursing; non-verbal.
As per prior CM notes, referral to [facility] per father's request - accepted.
CM continuing to follow.
Plan home with [facility].
--- NOTE | 2024-10-23 18:07 | PTCARENOTE ---
Patient nonverbal. Patient opens eyes to name. Patient on 1L NC with SpO2 greater than 92%. NSR on monitor. VSS. +2 anasarca. PEG tube dressing changed two times throughout shift. Jevity 1.5 running at goal. Large incontinent gold colored BM.
Incontinent to urine. Jaundice skin. Assist x2 in bed. Hourly rounds completed during shift. Patients parents at bedside. Bed in lowest position and wheels of bed locked.
--- NOTE | 2024-10-23 20:48 | PTCARENOTE ---
Received pt from previous RN. Pt is nonverbal, does not follow commands, b/l foot drop. NSR on the monitor. On 1L NC, O2 sat 99%, lungs coarse/rhonchi. Incontx2. Mouth care and hygiene provided. Q2T provided. Mom @ bedside. Safe environment
maintained.
[2024-10-24] VITALS (19 sets, daily range): BP systolic 69–116; BP diastolic 25–85
[2024-10-24] MEDS: ZOSYN 50 IV ×4 (03:59→21:27)
[2024-10-24 04:20] LABS: INR 1.59; PT 19.2 Sec (11.4-14.6)
[2024-10-24 04:21] LABS: Ammonia 31 umol/L (9-30)
[2024-10-24 04:23] LABS: ALT (SGPT) 146 U/L (0-35); AST (SGOT) 224 U/L (14-36); Albumin 1.9 g/dl (3.5-5.0); Alkaline Phosphatase 134 U/L (38-126); Blood Urea Nitrogen 18 mg/dl (7-17); Calcium 7.6 mg/dl (8.4-10.2); Carbon Dioxide 27 mmol/L (22-30); Chloride 105 mmol/L (98-107); Estimated Creatinine Clearance 86 ml/min; Glucose 121 mg/dl (70-99); Potassium 3.9 mmol/L (3.5-5.1); Sodium 137 mmol/L (135-145); Total Bilirubin 7.6 mg/dl (0.2-1.3); Total Protein 4.8 g/dl (6.3-8.2); eGFR > 60.00
[2024-10-24 04:25] LABS: Hematocrit 29.9 % (37.0-47.0); Hemoglobin 9.8 g/dL (12.0-16.0); Mean Corp Hgb Conc. 32.8 g/dL (33.0-37.0); Mean Corpuscular Hgb 31.5 pg (27.0-31.0); Mean Corpuscular Volume 96.1 fL (81.0-99.0); Mean Platelet Volume 12.5 fL (7.4-10.4); Platelet Count 166 10^3/uL (130-400); Red Blood Cell Count 3.11 10^6/uL (4.20-5.40); Red Cell Dist. Width 19.8 % (11.5-14.5); White Blood Cell Count 5.9 10^3/uL (4.8-10.8)
[2024-10-24 05:01] LABS: Absolute Neutrophils -Man Diff 3.7 10^3/uL (1.4-6.5); Band Neutrophils 12 % (0-3); Eosinophils 4 % (0-6); Lymphocytes 23 % (20-51); Monocytes 9 % (2-9); Platelets Checked Yes; Segmented Neutrophils 52 % (42-75)
[2024-10-24 05:02] LABS: Hypersegmented Neutrophil FEW; Normal RBC Morphology Yes; Total Cells Counted 100
[2024-10-24] MEDS: DESENEX/MITRAZOL/ZEASORB 1 APPLIC TOPICAL ×2 (07:55→20:09)
[2024-10-24] MEDS: SINGULAIR 10 MG TUBE (07:55)
[2024-10-24] MEDS: TRILEPTAL 600 MG TUBE ×2 (07:55→20:11)
[2024-10-24] MEDS: ONFI 10 MG TUBE ×2 (07:55→21:24)
[2024-10-24] MEDS: ProAmatine 10 MG TUBE ×3 (07:55→17:14)
[2024-10-24] MEDS: SENNA SYRUP 8.8 MG TUBE ×2 (07:55→20:11)
[2024-10-24] MEDS: MIRALAX 17 GRAMS TUBE ×2 (07:55→20:11)
--- NOTE | 2024-10-24 08:39 | W.PN.HOSP.TC ---
Addendum entered and electronically signed by Horacio Gallagher MD 10/24/24 15:20:
Seen and examined by me independently in collaboration with the medical records secretary.
Lab data and imaging data reviewed.
Addendum as below :
No overnight events.
Afebrile. Remains stable on lower FiO2 at 1 L of nasal cannula. Normally on 2 L at home. Chest with rhonchorous breathing but no distress or wheezing.
Continue with antibiotics for aspiration pneumonia per ID.
Improved hemodynamics. EKG without any acute ST changes. TSH and cortisol does not support glandular hypofunction. Await echocardiogram. in a.m.
Improving LV function.
If echo is normal we will discharge her in am.
DW mom at bedside about dc plan.
Original Note:
Today's Communication/Plan
-
transition to tele
PT/OT to follow
continue Zosyn, transition to Augmentin at DC
Echo today
Assessment / Plan
Assessment / Plan
48 F with cerebral palsy and frequent aspiration events now s/p PEG comes in with PEG malfunction where feeding was leaking from around PEG site. Patient has been having regular bowel movements. You leukocytosis found on 10/20, suspected aspiration
pneumonia.
#Aspiration pneumonia
Afebrile
COVID and influenza negative
Blood cultures show no growth
UA shows UTI
Per infectious disease continue Zosyn, transition to augmentin at DC
Patient having significant phlegm production overnight, improved but still present. continue suction
Started patient on Mucinex on 10/23. Continue medication and suction today.
Elevation of bed for aspiration precaution
#PEG tube displacement likely secondary to severe constipation
At home on (On Compleat 1.5 45ml/hr with 50 ml/hr water flush for 16 hours daily) .
Continue tube feeds
GI following
#Constipation
Continue Colace, senna and MiraLAX twice daily
Abdominal x-ray shows improvement in stool burden
Possible ileus on CT imaging. Surgery consulted and stated patient does not have symptoms of bowel obstruction. Can consider Gastrografin enema.
Patient currently having bowel movement
#Nonspecific pulmonary parenchymal opacity on CT Abdomen Pelvis
Consider echocardiogram and/or chest x-ray
Cardiology said no need for diuretics
Pulmonology stated opacities on chest imaging are chronic and wax and wane based on aspiration status
Chest x-ray shows low lung volumes with diffuse interstitial opacification bibasilar opacities
# Abnormal LFTs and concern for acute liver failure
Persistently elevated LFTs and high INR, downtrending
Hypotension possibly secondary to LFT increase from autoimmune process
Ammonia and lactic acid normal.
Acute liver failure workup per GI ordered
Since LFTs are downtrending, transfer to [place] deferred for later
Completed NAC drip per [facility] protocol
Vitamin K ordered and doses given on 10/04 and 10/15
Daily MELD labs
#Thrombocytopenia
Resolved
#Pseudomonas UTI
Received cefepime for 5 days
#Vaginal discharge
Consulted gynecology and recommendations made on 10/18
Diflucan poor option given elevated LFTs
#Chronic hypotension
Systolics are in 90s at home as well per family
Midodrine changed to 10 mg 3 times a day from 15 mg twice a day
Blood pressure seems to stay in mid to high 90s to low 100s systolic
EKG negative. Pending echo today
TSH and cortisol normal. Would retest cortisol outpatient, currently low normal
#Seizure disorder
Continue clobazam and oxcarbazepine
#Cerebral palsy with functional dysplasia
#Chronic dysphagia status post PEG tube
#History of ovarian cancer status post surgery
DVT Prophylaxis: Lovenox subq
Code status - Full Code
patient's father at bedside
Anticipated Discharge: > 48 hours
Subjective/Interval History
-
Date of Service: October 24, 2024
48 F with cerebral palsy and frequent aspiration events now s/p PEG comes in with PEG malfunction where feeding was leaking from around PEG site. Patient has been having regular bowel movements. new leukocytosis found on 10/20, suspected aspiration
pneumonia. Overnight patient's mom reports no acute events. She states that her daughter still sounds a little bit gurgly and is having phlegm production. Patient was sleeping comfortably in bed. On visual inspection, looks more comfortable than
yesterday.
Objective Data
-
Labs:
Laboratory Results
10/24/24
03:57
WBC 5.9
Hgb 9.8 L
Hct 29.9 L
Plt Count 166
PT 19.2 H
INR 1.59
Sodium 137
Potassium 3.9
Chloride 105
Carbon Dioxide 27
BUN 18 H
Creatinine 0.6
Glucose 121 H
Calcium 7.6 L
Total Bilirubin 7.6 H
AST 224 H
ALT 146 H
Alkaline Phosphatase 134 H
Vital Signs:
Vital Signs
Temp Pulse Resp BP Pulse Ox
98.6 F 72 16 100/59 97
10/24/24 07:44 10/24/24 08:00 10/24/24 08:00 10/24/24 08:00 10/24/24 08:00
I&O
10/23/24 10/24/24 10/25/24
06:59 06:59 06:59
Intake Total 940 / 940 1140 / 1140
Balance 940 / 940 1140 / 1140
Review of Systems
-
Unable to obtain full review of systems at this time due to: Patient Non-verbal
Physical Exam
-
General: No Apparent Distress, Comfortable and Other (asleep)
Respiratory: Rhonchi
Cardiac: Regular Rhythm and S1/S2
GI: Soft, Nontender and Peg Tube
Musculoskeletal: Other (Edema in the hands)
Neuro: Sedated
Psych: Calm
Data Reviewed
-
Medical Tests (Nuc Med, Echo etc): Report Reviewed by me
Labs: Labs Reviewed by me and Discussed with Physician
Old Records: Reviewed
--- NOTE | 2024-10-24 13:55 | W.PN.ID1 ---
Date of Service
Date of Service: October 24, 2024
Today's Communication
Continue antibiotics. See below�
Assessment / Plan
Suspected aspiration pneumonia
Leukocytosis
Fevers
� Improved
Transaminitis
- drug effect? Infectious process? Autoimmune? shock liver?
- improving
Elevated bilirubin
Cerebral Palsy
Hx Ovarian Cancer s/p Surgery and Hormone Treatment
Hx Seizure Disorder
Recommendations:
Continue with empiric Zosyn (d#6) to complete a 7-day course.
Strict aspiration precautions.
I have previously counseled family that given underlying comorbidities, patient is at high risk for recurrent aspiration.
Trend LFTs/bilirubin
����������������������������������������������������������
Chief Complaint
-: Leukocytosis and Pneumonia
Subjective / Review of Systems
Patient seen and examined. No significant changes overnight.
Vital Signs / Physical Exam
Vital Signs
Vital Signs
Temp Pulse Resp BP Pulse Ox
98.0 F 72 27 109/70 97
10/24/24 11:10 10/24/24 13:11 10/24/24 12:00 10/24/24 13:11 10/24/24 12:54
Physical Exam
Constitutional: Comfortable, Chronically Ill and Non-toxic
Cardiovascular: S1/S2; Negative S3/S4
Pulmonary: Non Labored
Gastrointestinal: Soft and Non Distended
Extremities: Edema and Other (contracted); Negative Cyanosis or Erythema
Neurological: Other (Arousable to touch.)
Psychological: Calm
Objective Data
Lab Data
Lab Results
10/24/24 03:57
10/24/24 03:57
PT 19.2 Sec (11.4-14.6) H 10/24/24 03:57
INR 1.59 10/24/24 03:57
Estimated Creat Clear 86 ml/min 10/24/24 03:57
Lactic Acid 1.2 mmol/L (0.7-2.0) 10/16/24 06:02
Total Bilirubin 7.6 mg/dl (0.2-1.3) H 10/24/24 03:57
AST 224 U/L (14-36) H 10/24/24 03:57
ALT 146 U/L (0-35) H 10/24/24 03:57
Alkaline Phosphatase 134 U/L (38-126) H 10/24/24 03:57
Most recent labs reviewed.
Micro Results:
10/21/24 05:15 Blood Culture - Preliminary
Blood/Venous No Growth in 72 hours- Final report to follow
10/21/24 05:15 Blood Culture - Preliminary
Blood/Venous No Growth in 72 hours- Final report to follow
10/19/24 16:18 Blood Culture - Preliminary
Blood/Venous No Growth in 4 days- Final report to follow
10/18/24 18:24 Yeast Culture - Final
Vagina NO YEAST ISOLATED.
10/19/24 17:39 Urine Culture - Final
Urine
10/19/24 16:43 Influenza Types A & B (SAMARA) - Final
Nasal Swab Negative for Influenza A & B, NAAT
Negative results must be combined with clinical observations
and patient history.
Nucleic Acid Amplification test (NAAT)performed on the
[employer] platform.
10/18/24 18:24 Chlamydia trachomatis (PCR) - Final
Vagina Neisseria gonorrhoeae (PCR) - Final
10/12/24 17:22 Influenza Types A & B (SAMARA) - Final
Nasal Swab Negative for Influenza A & B, NAAT
Negative results must be combined with clinical observations
and patient history.
Nucleic Acid Amplification test (NAAT)performed on the
[employer] platform.
10/06/24 23:54 Urine Culture - Final
Urine Pseudomonas aeruginosa
Imaging:
10/19/2024 CXR (portable): Mild airspace disease in left lower lung field concerning for pneumonia. No visualized pneumothorax.
10/11/2024 CT abdomen/pelvis with contrast: Nonspecific pulmonary parenchymal opacity; consider edema or congestive heart failure. Diffuse pneumonia or nonspecific alveolitis can also be seen. Moderate gallbladder distention noted. Mild
distention without gross dilatation of proximal small bowel loops, with a few air contrast levels. Please see full dictation for additional detail.
--- NOTE | 2024-10-24 13:59 | PTCARENOTE ---
Patient nonverbal. Patient opens eyes to name. Patient on 1L NC with SpO2 greater than 92%. NSR on monitor. VSS. +2 anasarca. PEG tube dressing changed during shift. Jevity 1.5 running at goal. 2 Large incontinent gold colored BM. Incontinent to
urine. Jaundice skin. Assist x2 in bed. Hourly rounds completed during shift. Patients parents at bedside. Bed in lowest position and wheels of bed locked.
[2024-10-24] MEDS: LOVENOX 40 MG SC (17:13)
--- NOTE | 2024-10-24 18:02 | PTCARENOTE ---
1730: Report given to Maggi MUELLER on 4W. Patient transferred to 4W. Patient belongings transferred with patient.
--- NOTE | 2024-10-24 18:35 | PTCARENOTE ---
late note due to pt care.
received pt from IMU. Nonverbal at baseline, pt's father at bedside. Tube feed infusing at 45ml/hr. SR on tele monitor. Oriented family to room and unit, Call velazquez within reach.
[2024-10-24] MEDS: NSS 500 IV (20:06)
[2024-10-25 03:00] VITALS: BP 114/61
[2024-10-25] MEDS: ZOSYN 50 IV ×4 (03:15→21:02)
[2024-10-25 05:42] LABS: % Eosinophils 3.9 % (0-6); % Immature Granulocytes 1.4 % (0-0.5); % Lymphocytes 20.6 % (20.5-51.1); % Monocytes 19.4 % (1.7-9.3); % Neutrophils 53.7 % (42.2-75.2); Absolute Basophils 0.1 10^3/uL (0-0.2); Absolute Eosinophils 0.3 10^3/uL (0-0.7); Absolute Immature Granulocytes 0.1 10^3/uL (0-0.05); Absolute Lymphocytes 1.6 10^3/uL (1.2-3.4); Absolute Monocytes 1.5 10^3/uL (0.1-0.6); Absolute Neutrophils 4.2 10^3/uL (1.4-6.5); Hematocrit 33.1 % (37.0-47.0); Hemoglobin 10.9 g/dL (12.0-16.0); Mean Corp Hgb Conc. 32.9 g/dL (33.0-37.0); Mean Corpuscular Hgb 31.7 pg (27.0-31.0); Mean Corpuscular Volume 96.2 fL (81.0-99.0); Mean Platelet Volume 12.4 fL (7.4-10.4); Nucleated Red Blood Cells % 0 %; Platelet Count 207 10^3/uL (130-400); Red Blood Cell Count 3.44 10^6/uL (4.20-5.40); White Blood Cell Count 7.8 10^3/uL (4.8-10.8)
[2024-10-25 06:07] LABS: ALT (SGPT) 144 U/L (0-35); AST (SGOT) 245 U/L (14-36); Albumin 2.1 g/dl (3.5-5.0); Alkaline Phosphatase 141 U/L (38-126); Blood Urea Nitrogen 19 mg/dl (7-17); Calcium 7.9 mg/dl (8.4-10.2); Carbon Dioxide 25 mmol/L (22-30); Chloride 106 mmol/L (98-107); Estimated Creatinine Clearance 86 ml/min; Glucose 116 mg/dl (70-99); Potassium 4.3 mmol/L (3.5-5.1); Sodium 136 mmol/L (135-145); Total Bilirubin 7.9 mg/dl (0.2-1.3); Total Protein 5.2 g/dl (6.3-8.2); eGFR > 60.00
[2024-10-25 07:30] VITALS: BP 109/52
--- NOTE | 2024-10-25 08:13 | W.PN.HOSP.TC ---
Addendum entered and electronically signed by Horacio Gallagher MD 10/25/24 13:45:
Seen and examined by me independently in collaboration with the medical review coordinator.
Lab data and imaging data reviewed.
Addendum as below :
Patient sleeping but no distress noted.
Currently on 2 L of oxygen which is her baseline. Chest anteriorly rhonchorous breathing but no wheezing.
Abdomen soft.
Last night blood pressure was low but this morning is better.
Patient has longstanding history of chronic hypertension was at 1 point apparently on 15 mg of midodrine 3 times a day was later decreased to twice a day.
Her echocardiogram shows normal EF. She finished her antibiotics so I doubt she is hypotensive because of infection. I suspect chronic autonomic issue. Will check up her midodrine to 15 mg 3 times daily. Random cortisol was 4.8 which is adequate
but being on the lower side we will do ACTH stimulation test and if any evidence of hypercortisolism we will add steroids.If ACTH test is ok will dc back home.
DW father at bedside.
Alert CM about potential dc.
Original Note:
Today's Communication/Plan
-
complete last dose of 7 day course of Zosyn
stable for DC tomorrow
Assessment / Plan
Assessment / Plan
48 F with cerebral palsy and frequent aspiration events now s/p PEG comes in with PEG malfunction where feeding was leaking from around PEG site. Patient has been having regular bowel movements. You leukocytosis found on 10/20, suspected aspiration
pneumonia.
#Aspiration pneumonia
Afebrile
COVID and influenza negative
Blood cultures show no growth
UA shows UTI
Per infectious disease continue Zosyn, last dose today (7 day course)
Patient having significant phlegm production overnight, improved but still present. continue suction
Started patient on Mucinex on 10/23. Continue medication and suction today.
Elevation of bed for aspiration precaution
#PEG tube displacement likely secondary to severe constipation
At home on (On Compleat 1.5 45ml/hr with 50 ml/hr water flush for 16 hours daily) .
Resume enteral feeds at home as ordered prior to hospital
Continue tube feeds
GI following
#Constipation
Continue Colace, senna and MiraLAX twice daily
Abdominal x-ray shows improvement in stool burden
Possible ileus on CT imaging. Surgery consulted and stated patient does not have symptoms of bowel obstruction. Can consider Gastrografin enema.
Patient currently having bowel movement
#Nonspecific pulmonary parenchymal opacity on CT Abdomen Pelvis
Consider echocardiogram and/or chest x-ray
Cardiology said no need for diuretics
Pulmonology stated opacities on chest imaging are chronic and wax and wane based on aspiration status
Chest x-ray shows low lung volumes with diffuse interstitial opacification bibasilar opacities
# Abnormal LFTs and concern for acute liver failure
Persistently elevated LFTs and high INR, downtrending
Hypotension possibly secondary to LFT increase from autoimmune process
Ammonia and lactic acid normal.
Acute liver failure workup per GI ordered
Since LFTs are downtrending, transfer to [place] deferred for later
Completed NAC drip per [facility] protocol
Vitamin K ordered and doses given on 10/04 and 10/15
Daily MELD labs
#Thrombocytopenia
Resolved
#Pseudomonas UTI
Received cefepime for 5 days
#Vaginal discharge
Consulted gynecology and recommendations made on 10/18
Diflucan poor option given elevated LFTs
#Chronic hypotension
Systolics are in 90s at home as well per family
Midodrine changed to 10 mg 3 times a day from 15 mg twice a day
Blood pressure seems to stay in mid to high 90s to low 100s systolic
EKG negative. Echo shows EF of 60 to 65%
TSH and cortisol normal. Would retest cortisol outpatient, currently low normal
#Seizure disorder
Continue clobazam and oxcarbazepine
#Cerebral palsy with functional dysplasia
#Chronic dysphagia status post PEG tube
#History of ovarian cancer status post surgery
DVT Prophylaxis: Lovenox subq
Code status - Full Code
Anticipated Discharge: Within 24 hours
Subjective/Interval History
-
Date of Service: October 25, 2024
48 F with cerebral palsy and frequent aspiration events now s/p PEG comes in with PEG malfunction where feeding was leaking from around PEG site. Patient has been having regular bowel movements. You leukocytosis found on 10/20, suspected aspiration
pneumonia. Patient resting comfortably in bed, sleeping. No family at bedside this morning.
Objective Data
-
Labs:
Laboratory Results
10/25/24
05:22
WBC 7.8
Hgb 10.9 L
Hct 33.1 L
Plt Count 207 D
Sodium 136
Potassium 4.3
Chloride 106
Carbon Dioxide 25
BUN 19 H
Creatinine 0.6
Glucose 116 H
Calcium 7.9 L
Total Bilirubin 7.9 H
AST 245 H
ALT 144 H
Alkaline Phosphatase 141 H
Vital Signs:
Vital Signs
Temp Pulse Resp BP Pulse Ox
99 F 75 20 114/61 99
10/25/24 03:00 10/25/24 03:00 10/25/24 03:00 10/25/24 03:00 10/25/24 03:00
I&O
10/24/24 10/25/24 10/26/24
06:59 06:59 06:59
Intake Total 2079 50 / 50
Balance 2079 50 / 50
Review of Systems
-
Unable to obtain full review of systems at this time due to: Patient Non-verbal
Physical Exam
-
General: No Apparent Distress and Comfortable
HEENT: Normocephalic and Atraumatic
GI: Soft, Nontender and Nondistended
Skin: Warm and Dry
Neuro: Other (Sleeping)
Data Reviewed
-
Medical Tests (Nuc Med, Echo etc): Report Reviewed by me
Labs: Labs Reviewed by me and Discussed with Physician
Old Records: Reviewed
[2024-10-25] MEDS: ProAmatine 10 MG TUBE ×2 (09:16→12:27)
[2024-10-25] MEDS: SENNA SYRUP 8.8 MG TUBE ×2 (09:16→20:29)
[2024-10-25] MEDS: MIRALAX 17 GRAMS TUBE ×2 (09:18→20:29)
[2024-10-25] MEDS: DESENEX/MITRAZOL/ZEASORB 1 APPLIC TOPICAL ×2 (09:18→20:29)
[2024-10-25] MEDS: ONFI 10 MG TUBE ×2 (09:18→20:29)
[2024-10-25] MEDS: TRILEPTAL 600 MG TUBE ×2 (09:18→20:29)
[2024-10-25] MEDS: SINGULAIR 10 MG TUBE (09:18)
--- NOTE | 2024-10-25 10:55 | W.PN.ID1 ---
Date of Service
Date of Service: October 25, 2024
Today's Communication
Sign off
Assessment / Plan
Suspected aspiration pneumonia
Leukocytosis
Fevers
� Improved
Transaminitis
- improving
Elevated bilirubin
Cerebral Palsy
Hx Ovarian Cancer s/p Surgery and Hormone Treatment
Hx Seizure Disorder
Recommendations:
Finishing course of Zosyn today. Thereafter observe off antibiotics.
Strict aspiration precautions.
I have previously counseled family that given underlying comorbidities, patient is at high risk for recurrent aspiration.
Little more to offer from a Infectious Diseases standpoint.
Will see again at your request.
����������������������������������������������������������
Chief Complaint
-: Leukocytosis and Pneumonia
Subjective / Review of Systems
Review of Systems: No Fever and No Chills
Vital Signs / Physical Exam
Vital Signs
Vital Signs
Temp Pulse Resp BP Pulse Ox
99.0 F 83 24 109/52 97
10/25/24 07:30 10/25/24 09:16 10/25/24 07:30 10/25/24 09:16 10/25/24 08:00
Physical Exam
Constitutional: Comfortable, Chronically Ill and Non-toxic
Cardiovascular: S1/S2; Negative S3/S4
Pulmonary: Non Labored
Gastrointestinal: Soft and Non Distended
Extremities: Edema and Other (contracted); Negative Cyanosis or Erythema
Neurological: Other (Arousable to touch.)
Psychological: Calm
Objective Data
Lab Data
Lab Results
10/25/24 05:22
10/25/24 05:22
PT 19.2 Sec (11.4-14.6) H 10/24/24 03:57
INR 1.59 10/24/24 03:57
Estimated Creat Clear 86 ml/min 10/25/24 05:22
Lactic Acid 1.2 mmol/L (0.7-2.0) 10/16/24 06:02
Total Bilirubin 7.9 mg/dl (0.2-1.3) H 10/25/24 05:22
AST 245 U/L (14-36) H 10/25/24 05:22
ALT 144 U/L (0-35) H 10/25/24 05:22
Alkaline Phosphatase 141 U/L (38-126) H 10/25/24 05:22
Most recent labs reviewed.
Micro Results:
10/21/24 05:15 Blood Culture - Preliminary
Blood/Venous No Growth in 4 days- Final report to follow
10/21/24 05:15 Blood Culture - Preliminary
Blood/Venous No Growth in 4 days- Final report to follow
10/19/24 16:18 Blood Culture - Final
Blood/Venous No Growth - Final Report
10/18/24 18:24 Yeast Culture - Final
Vagina NO YEAST ISOLATED.
10/19/24 17:39 Urine Culture - Final
Urine
10/19/24 16:43 Influenza Types A & B ([facility]ARA) - Final
Nasal Swab Negative for Influenza A & B, NAAT
Negative results must be combined with clinical observations
and patient history.
Nucleic Acid Amplification test (NAAT)performed on the
[employer] platform.
10/18/24 18:24 Chlamydia trachomatis (PCR) - Final
Vagina Neisseria gonorrhoeae (PCR) - Final
10/12/24 17:22 Influenza Types A & B ([facility]ARA) - Final
Nasal Swab Negative for Influenza A & B, NAAT
Negative results must be combined with clinical observations
and patient history.
Nucleic Acid Amplification test (NAAT)performed on the
[employer] platform.
10/06/24 23:54 Urine Culture - Final
Urine Pseudomonas aeruginosa
Imaging:
10/19/2024 CXR (portable): Mild airspace disease in left lower lung field concerning for pneumonia. No visualized pneumothorax.
10/11/2024 CT abdomen/pelvis with contrast: Nonspecific pulmonary parenchymal opacity; consider edema or congestive heart failure. Diffuse pneumonia or nonspecific alveolitis can also be seen. Moderate gallbladder distention noted. Mild
distention without gross dilatation of proximal small bowel loops, with a few air contrast levels. Please see full dictation for additional detail.
[2024-10-25] MEDS: NSS (PRESERVATIVE FREE) 1 ML IV (11:20)
[2024-10-25] MEDS: CORTROSYN 0.25 MG IV (11:21)
--- NOTE | 2024-10-25 11:23 | W.DCSUMMARY ---
Documented by User: Yudith Lux DO, Resident 10/27/24 13:55
Discharge Summary
Discharge Data
Date of Admission: 10/08/24
Date of Discharge: 10/27/24
Total time spent discharging patient (in min): 52
-
Pending Results: No
Hospital Course
Discharging Physician : Horacio Gallagher MD
Primary care physician : Timbo Courtney
Principal Discharge diagnosis : G tube displacement, aspiration pneumonia
Hospital Course : This is a 48-year-old female with history of cerebral palsy complicated by seizures and functional quadriplegia was nonverbal at baseline, has recurrent aspiration status post PEG tube placement, history of ovarian cancer and
chronic hypotension who presents to the from home with concern for PEG-tube malfunction and constipation. PEG tube was put back in place. At this time patient was also found to have UTI. Patient started on ceftriaxone and increased dose of
MiraLAX/ enema. Tube feeds held until resolution of constipation. After milk of molasses enema, patient had bowel movements and resolved constipation. Tube feeds were restarted at home rate. Eventually patient switched to cefepime, awaiting
susceptibility results. On day 2 of admission, critical labs resulted with elevated AST and ALT (1062, 729)-follow LFTs due to concern of shock liver versus medication induced. GI was notified and abdominal ultrasound with Doppler was ordered.
Patient was also hypotensive and given a bolus of normal saline and dose of midodrine. Ultrasound showed normal bile ducts, nondilated and no gallstones but gallbladder with of 5.1 mm. Per GI recommendations, patient was given vitamin K and NAC
drip per [facility] protocol. At this time GI reached out to [facility] regarding potential transfer. Later discontinued because LFT started to downtrend. Ammonia and lactic acid normal. CT abdomen pelvis ordered showing possible ileus and
nonspecific pulmonary parenchymal opacities. Pulmonary consulted, they commented chest imaging abnormalities are chronic and will come and go with aspiration. Recommendations made for incentive spirometry if able and as needed imaging of the
chest. Continue patient on 2 L oxygen supplementation, her baseline. By 10/14, LFTs continue to downtrend and INR downtrending as well. Liver biopsy not completed due to kit not being available in hospital. On 10/19, patient had new fever and was
transferred to IMU. Negative for COVID, flu. Aspiration precautions followed and pt started on Zosyn/vancomycin per ID. Blood cultures negative. Patient started on Mucinex and increased suction due to increased secretions. workup for
cardiomyopathy ordered. Echo showed EF 60-65% and ekg negative. TSH and cortisol does not support glandular hypofunction. Improved hemodynamics. Patient to start 1 L nasal cannula, no distress or wheezing noted. Patient developed mustardy yellow
diarrhea on 10/26, checked for norovirus and C. difficile. Both negative. Recommended reduction frequency of MiraLAX. Patient stable for discharge home.
Important imaging findings :
10/07 chest x-ray:
IMPRESSION:
1. No acute cardiopulmonary process.
2. Non-specific bowel gas pattern without signs of obstruction.
3. Moderate diffuse colonic stool burden may reflect constipation.
10/08 abdominal x-ray:
IMPRESSION:
Possible ileus. Mild stool burden.
10/09 Doppler ultrasound:
IMPRESSION:
Normal ultrasound evaluation of the abdominal vasculature.
Limited visualization of the liver secondary to positioning and requiring intercostal imaging. Normal in size.
No gallstones, though there is generalized gallbladder wall thickening measuring up to 5.1 mm. Uncertain etiology.
No bile duct dilatation.
No obstructive uropathy. Renal cysts.
Hepatobiliary scan nuclear medicine 10/11:
Impression: No scintigraphic evidence of cystic duct obstruction.
Nonvisualization of activity in the small bowel and vicarious excretion of activity most likely related to elevated serum bilirubin and not biliary tract obstruction.
Abdominal/pelvic CT 10/11:
IMPRESSION:
Nonspecific pulmonary parenchymal opacity; consider edema from volume overload or congestive heart failure, diffuse pneumonia, or nonspecific alveolitis.
Moderate gallbladder distention. Top normal gallbladder wall thickness. Mild gallbladder wall edema suggested. No bile duct dilatation.
Nonobstructing renal calculi. Renal cysts.
Predominantly liquid stool throughout the colon with mild distention and scattered air-fluid levels. Recommend correlation with history of diarrhea.
Mild distention without gross dilatation of proximal small bowel loops, with a few air-contrast levels. More distal small bowel appears relatively collapsed, containing enteric contrast material. No definitive transition is identified to suggest
small bowel obstruction. Possible proximal small bowel ileus. However, depending on clinical concern, follow-up small bowel study may be considered if there is significant clinical concern for the possibility of a small bowel obstruction.
Percutaneous gastrostomy tube in place. No abdominal wall collection or hernia.
Chest x-ray 10/13:
IMPRESSION:
Low lung volumes with diffuse interstitial opacification and bibasilar opacities which may represent multifocal pneumonia or mild edema/atelectasis.
Chest x-ray 10/19:
IMPRESSION:
Findings suggesting mild left lower lobe pneumonia. Progressed..
X-ray 10/20:
FINDINGS/impression:
Slight improved aeration at the left lung base, suggestion of minor residual opacity. The left mid and upper lung zone appear clear. The right lung is clear. No pneumothorax. No radiographically demonstrable pleural effusion.
Discharge Plan
-
Patient Disposition: Home (Routine Discharge)
Discharge Diagnosis/Procedures: G-tube displacement; Constipation ; aspiration pneumonia ;Acute hepatic dysfunction of unclear etiology ; chronic hypotension
Condition: Fair
Diet: Tube feeding
Activity: As tolerated
Driving Restrictions: No driving
Blood Work: Please repeat LFTs in 1 week-arrange through PCP
Other Services: VN
Referrals:
Timbo Courtney MD [Family Provider] - in less than 1 week
Additional Discharge Medication Instructions: If patient has diarrhea, limit MiraLAX use to once daily or every other day
Prescriptions:
New
midodrine 5 mg Tablet
15 mg feeding tube TID @ 0800,1200,1700 Qty: 90 1RF
guaifenesin 100 mg/5 mL Liquid
100 mg feeding tube Q4HPRN PRN (Reason: Cough) 60 Days Qty: 1000 0RF
Continued
fluticasone propionate 50 mcg/actuation [place],Suspension
2 spray INTRANASAL HS
polyethylene glycol 3350 [HealthyLax] 17 gram Powder In Packet
17 g feeding tube DAILYPRN PRN (Reason: constipation) Qty: 100 1RF
clobazam 10 mg Tablet
10 mg feeding tube BID Qty: 60 1RF
oxcarbazepine 300 mg Tablet
600 mg feeding tube BID Qty: 120 1RF
Probiotic capsule
1 cap feeding tube DAILY
sennosides 8.8 mg/5 mL syrup
8.8 mg feeding tube DAILY
ascorbic acid (vitamin C) [Vitamin C] 500 mg tablet
500 mg feeding tube HS
montelukast 10 mg tablet
10 mg feeding tube DAILY
Discontinued
docusate sodium 50 mg/5 mL liquid
50 mg feeding tube BID
midodrine 5 mg tablet
15 mg feeding tube BID
Discharge Orders:
Discharge Patient (As Directed); Ordered 10/27/24
Ordered By: Yudith Lux
Discharge Date and Time
Print Language: ROMANIAN

Documented by User: Horacio Gallagher MD 10/27/24 14:09
Discharge Summary
Discharge Data
Date of Admission: 10/08/24
Date of Discharge: 10/27/24
Discharge Plan
-
Patient Disposition: Home (Routine Discharge)
Discharge Diagnosis/Procedures: G-tube displacement; Constipation ; aspiration pneumonia ;Acute hepatic dysfunction of unclear etiology ; chronic hypotension
Condition: Fair
Diet: Tube feeding
Activity: As tolerated
Driving Restrictions: No driving
Blood Work: Please repeat LFTs in 1 week-arrange through PCP
Other Services: VN
Referrals:
Timbo Courtney MD [Family Provider] - in less than 1 week
Additional Discharge Medication Instructions: If patient has diarrhea, limit MiraLAX use to once daily or every other day
Prescriptions:
New
midodrine 5 mg Tablet
15 mg feeding tube TID @ 0800,1200,1700 Qty: 90 1RF
guaifenesin 100 mg/5 mL Liquid
100 mg feeding tube Q4HPRN PRN (Reason: Cough) 60 Days Qty: 1000 0RF
Continued
fluticasone propionate 50 mcg/actuation [place],Suspension
2 spray INTRANASAL HS
polyethylene glycol 3350 [HealthyLax] 17 gram Powder In Packet
17 g feeding tube DAILYPRN PRN (Reason: constipation) Qty: 100 1RF
clobazam 10 mg Tablet
10 mg feeding tube BID Qty: 60 1RF
oxcarbazepine 300 mg Tablet
600 mg feeding tube BID Qty: 120 1RF
Probiotic capsule
1 cap feeding tube DAILY
sennosides 8.8 mg/5 mL syrup
8.8 mg feeding tube DAILY
ascorbic acid (vitamin C) [Vitamin C] 500 mg tablet
500 mg feeding tube HS
montelukast 10 mg tablet
10 mg feeding tube DAILY
Discontinued
docusate sodium 50 mg/5 mL liquid
50 mg feeding tube BID
midodrine 5 mg tablet
15 mg feeding tube BID
Discharge Orders:
Discharge Patient (As Directed); Ordered 10/27/24
Ordered By: Yudith Lux
Discharge Date and Time
Print Language: ROMANIAN
[2024-10-25 11:44] VITALS: BP 96/54
--- NOTE | 2024-10-25 12:57 | CM ---
CM reviewed chart, reviewed with Resident, plan for discharge tomorrow. Patient seen bedside with father, father will provide transportation home, have WC Van. Updates to [facility], clinicals faxed to [facility], resumption of tube feeds. CM
reviewed IMM, signed by father, placed in chart, father provided with copy. CM will continue to follow for all discharge planning needs.
Plan; home with family, [facility], family has home O2, [facility] tube feeds
[facility]: [phone]
[facility]: [phone]
[2024-10-25 13:34] LABS: ACTH Stim Cortisol 0 Min 8.7 ug/dl
[2024-10-25 14:45] LABS: ACTH Stim Cortisol 60 Min 27.8 ug/dl
[2024-10-25 16:00] VITALS: BP 135/81
[2024-10-25] MEDS: ProAmatine TUBE (17:14)
[2024-10-25] MEDS: LOVENOX 40 MG SC (17:29)
[2024-10-25 19:00] VITALS: BP 97/47
[2024-10-25 23:00] VITALS: BP 98/53
[2024-10-26] MEDS: TYLENOL ORAL SOLUTION 500 MG TUBE (00:11)
[2024-10-26 03:00] VITALS: BP 88/32
[2024-10-26 03:05] VITALS: BP 88/56
[2024-10-26 05:25] VITALS: BP 89/51
[2024-10-26 05:53] LABS: % Basophils 0.8 % (0-2); % Eosinophils 2.5 % (0-6); % Lymphocytes 23.3 % (20.5-51.1); % Monocytes 18.4 % (1.7-9.3); Absolute Basophils 0.1 10^3/uL (0-0.2); Absolute Eosinophils 0.2 10^3/uL (0-0.7); Absolute Immature Granulocytes 0.1 10^3/uL (0-0.05); Absolute Lymphocytes 1.5 10^3/uL (1.2-3.4); Absolute Monocytes 1.2 10^3/uL (0.1-0.6); Absolute Neutrophils 3.4 10^3/uL (1.4-6.5); Hematocrit 31.7 % (37.0-47.0); Hemoglobin 9.9 g/dL (12.0-16.0); Mean Corp Hgb Conc. 31.2 g/dL (33.0-37.0); Mean Corpuscular Hgb 30.5 pg (27.0-31.0); Mean Corpuscular Volume 97.5 fL (81.0-99.0); Mean Platelet Volume 12.7 fL (7.4-10.4); Nucleated Red Blood Cells % 0 %; Platelet Count 184 10^3/uL (130-400); Red Blood Cell Count 3.25 10^6/uL (4.20-5.40); White Blood Cell Count 6.4 10^3/uL (4.8-10.8)
--- NOTE | 2024-10-26 07:31 | W.PN.HOSP.TC ---
Addendum entered and electronically signed by Horacio Gallagher MD 10/26/24 13:16:
Seen and examined by me independently in collaboration with the clinical medical assistant.
Lab data and imaging data reviewed.
Addendum as below :
Patient nonverbal which is her baseline. No distress noted.
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 No labs from today available.
No respiratory distress. Comfortable on 2 L of oxygen which is her baseline.
Abdomen soft.
Patient having diarrhea with loose stool which is new for her. She is on MiraLAX twice daily which she will stop. In view of outbreak of norovirus we will check for right and left negative will discharge patient home as planned yesterday. Her
ACTH stimulation test does not show any evidence of adrenal insufficiency.
DW father at bedside.
Follow up LFTs in one week.
Total time of dc 32 min
Original Note:
Today's Communication/Plan
-
Discharge home today.
Assessment / Plan
Assessment / Plan
48 F with cerebral palsy and frequent aspiration events now s/p PEG comes in with PEG malfunction where feeding was leaking from around PEG site. Patient has been having regular bowel movements. You leukocytosis found on 10/20, suspected aspiration
pneumonia.
#Aspiration pneumonia
Afebrile
COVID and influenza negative
Blood cultures show no growth
UA shows UTI
Per infectious disease continue Zosyn, completed course yesterday
Patient having significant phlegm production overnight, improved but still present. continue suction
Started patient on Mucinex on 10/23. Continue medication and suction. Educated family that they can continue to suction at home if they feel that she is producing excess phlegm and can purchase Mucinex [id number].
Elevation of bed for aspiration precaution
#PEG tube displacement likely secondary to severe constipation
At home on (On Compleat 1.5 45ml/hr with 50 ml/hr water flush for 16 hours daily) .
Resume enteral feeds at home as ordered prior to hospital
Continue tube feeds
GI following
#diarrhea
new onset on 10/26, mustard yellow
norovirus pending
check c-diff if norovirus negative
#Constipation
Continue Colace, senna and MiraLAX twice daily
Abdominal x-ray shows improvement in stool burden
Possible ileus on CT imaging. Surgery consulted and stated patient does not have symptoms of bowel obstruction. Can consider Gastrografin enema.
Patient currently having bowel movement
#Nonspecific pulmonary parenchymal opacity on CT Abdomen Pelvis
Consider echocardiogram and/or chest x-ray
Cardiology said no need for diuretics
Pulmonology stated opacities on chest imaging are chronic and wax and wane based on aspiration status
Chest x-ray shows low lung volumes with diffuse interstitial opacification bibasilar opacities
# Abnormal LFTs and concern for acute liver failure
Persistently elevated LFTs and high INR, downtrending
Hypotension possibly secondary to LFT increase from autoimmune process
Ammonia and lactic acid normal.
Acute liver failure workup per GI ordered
Since LFTs are downtrending, transfer to [facility] deferred for later
Completed NAC drip per [facility] protocol
Vitamin K ordered and doses given on 10/04 and 10/15
Daily MELD labs
#Thrombocytopenia
Resolved
#Pseudomonas UTI
Received cefepime for 5 days
#Vaginal discharge
Consulted gynecology and recommendations made on 10/18
Diflucan poor [facility] given elevated LFTs
#Chronic hypotension
Systolics are in 90s at home as well per family
Midodrine changed to 10 mg 3 times a day from 15 mg twice a day
Blood pressure seems to stay in mid to high 90s to low 100s systolic
EKG negative. Echo shows EF of 60 to 65%
TSH and cortisol normal. Would retest cortisol outpatient, currently low normal. ACTH testing normal. Stable for discharge
#Seizure disorder
Continue clobazam and oxcarbazepine
#Cerebral palsy with functional dysplasia
#Chronic dysphagia status post PEG tube
#History of ovarian cancer status post surgery
DVT Prophylaxis: Lovenox subq
Code status - Full Code
Anticipated Discharge: Today
Subjective/Interval History
-
Date of Service: October 26, 2024
48 F with cerebral palsy and frequent aspiration events now s/p PEG comes in with PEG malfunction where feeding was leaking from around PEG site. Patient has been having regular bowel movements. You leukocytosis found on 10/20, suspected aspiration
pneumonia. Patient resting comfortably in bed, asleep. Mother at bedside. Mom states that she was cold and needed extra blankets. Now resolved. Per nursing, patient having watery diarrhea, checking for norovirus and then CDiff if negative.
Objective Data
-
Labs:
Laboratory Results
10/26/24
05:09
WBC 6.4
Hgb 9.9 L
Hct 31.7 L
Plt Count 184
Vital Signs:
Vital Signs
Temp Pulse Resp BP Pulse Ox
97.4 F 66 18 89/51 99
10/26/24 03:00 10/26/24 03:00 10/26/24 03:00 10/26/24 05:25 10/26/24 03:00
I&O
10/25/24 10/26/24 10/27/24
06:59 06:59 06:59
Intake Total 50 / 50 0 / 0 0 / 0
Balance 50 / 50 0 / 0 0 / 0
Review of Systems
-
Unable to obtain full review of systems at this time due to: Patient Non-verbal
History Source: Patient
Physical Exam
-
General: No Apparent Distress, Comfortable and Other (Asleep)
GI: Soft, Nontender and Nondistended
Skin: Warm and Dry
Neuro: AO x 3
Psych: Calm
Data Reviewed
-
Labs: Labs Reviewed by me
Old Records: Reviewed
[2024-10-26 09:00] VITALS: BP 110/54
--- NOTE | 2024-10-26 11:14 | CM ---
CM reviewed chart, patient seen bedside with mother. Patients mother reports her had some questions but cannot recall what they are- CM provided contact number in case family has further questions. Mother reports family will provide
transportation home for discharge today. CM will update [facility] on discharge. CM will continue to follow for all discharge planning needs.
Plan; home with family, [facility], family has home O2, [facility] tube feeds
[facility]: [phone]
[facility]: [phone]
[2024-10-26] MEDS: ONFI 10 MG TUBE ×2 (11:35→20:01)
[2024-10-26] MEDS: SINGULAIR 10 MG TUBE (11:36)
[2024-10-26] MEDS: ProAmatine 15 MG TUBE ×2 (11:36→18:27)
[2024-10-26] MEDS: SENNA SYRUP TUBE (11:39)
[2024-10-26] MEDS: MIRALAX TUBE (11:39)
[2024-10-26] MEDS: TRILEPTAL 600 MG TUBE ×2 (11:46→20:01)
[2024-10-26] MEDS: ProAmatine TUBE (12:43)
--- NOTE | 2024-10-26 13:12 | W.PN.HOSP.TC ---
Today's Communication/Plan
-
Stool check for Noro virus
DC planning
Assessment / Plan
Assessment / Plan
48 F with cerebral palsy and frequent aspiration events now s/p PEG comes in with PEG malfunction where feeding was leaking from around PEG site. Patient has been having regular bowel movements. You leukocytosis found on 10/20, suspected aspiration
pneumonia.
#Aspiration pneumonia
Afebrile
COVID and influenza negative
Blood cultures show no growth
UA shows UTI
Per infectious disease continue Zosyn, completed course yesterday
Patient having significant phlegm production overnight, improved but still present. continue suction
Started patient on Mucinex on 10/23. Continue medication and suction. Educated family that they can continue to suction at home if they feel that she is producing excess phlegm and can purchase Mucinex [id number].
Elevation of bed for aspiration precaution
#PEG tube displacement likely secondary to severe constipation
At home on (On Compleat 1.5 45ml/hr with 50 ml/hr water flush for 16 hours daily) .
Resume enteral feeds at home as ordered prior to hospital
Continue tube feeds
GI following
#diarrhea
new onset on 10/26, mustard yellow
norovirus pending
check c-diff if norovirus negative
#Constipation
Continue Colace, senna and MiraLAX twice daily
Abdominal x-ray shows improvement in stool burden
Possible ileus on CT imaging. Surgery consulted and stated patient does not have symptoms of bowel obstruction. Can consider Gastrografin enema.
Patient currently having bowel movement
#Nonspecific pulmonary parenchymal opacity on CT Abdomen Pelvis
Consider echocardiogram and/or chest x-ray
Cardiology said no need for diuretics
Pulmonology stated opacities on chest imaging are chronic and wax and wane based on aspiration status
Chest x-ray shows low lung volumes with diffuse interstitial opacification bibasilar opacities
# Abnormal LFTs and concern for acute liver failure
Persistently elevated LFTs and high INR, downtrending
Hypotension possibly secondary to LFT increase from autoimmune process
Ammonia and lactic acid normal.
Acute liver failure workup per GI ordered
Since LFTs are downtrending, transfer to [place] deferred for later
Completed NAC drip per [facility] protocol
Vitamin K ordered and doses given on 10/04 and 10/15
Daily MELD labs
#Thrombocytopenia
Resolved
#Pseudomonas UTI
Received cefepime for 5 days
#Vaginal discharge
Consulted gynecology and recommendations made on 10/18
Diflucan poor option given elevated LFTs
#Chronic hypotension
Systolics are in 90s at home as well per family
Midodrine changed to 10 mg 3 times a day from 15 mg twice a day
Blood pressure seems to stay in mid to high 90s to low 100s systolic
EKG negative. Echo shows EF of 60 to 65%
TSH and cortisol normal. Would retest cortisol outpatient, currently low normal. ACTH testing normal. Stable for discharge
#Seizure disorder
Continue clobazam and oxcarbazepine
#Cerebral palsy with functional dysplasia
#Chronic dysphagia status post PEG tube
#History of ovarian cancer status post surgery
DVT Prophylaxis: Lovenox subq
Code status - Full Code
Anticipated Discharge: Today
Subjective/Interval History
-
Date of Service: October 26, 2024
Objective Data
-
Labs:
Laboratory Results
10/26/24
05:09
WBC 6.4
Hgb 9.9 L
Hct 31.7 L
Plt Count 184
Vital Signs:
Vital Signs
Temp Pulse Resp BP Pulse Ox
97.6 F 66 20 113/60 100
10/26/24 11:50 10/26/24 11:36 10/26/24 11:50 10/26/24 11:36 10/26/24 11:50
I&O
10/25/24 10/26/24 10/27/24
06:59 06:59 06:59
Intake Total 50 / 50 0 / 0 0 / 0
Balance 50 / 50 0 / 0 0 / 0
[2024-10-26] MEDS: LOVENOX 40 MG SC (18:28)
[2024-10-26] MEDS: DESENEX/MITRAZOL/ZEASORB 1 APPLIC TOPICAL ×2 (18:28→20:00)
[2024-10-26 19:10] VITALS: BP 119/62
[2024-10-26] MEDS: SENNA SYRUP 8.8 MG TUBE (20:01)
[2024-10-26 23:10] VITALS: BP 131/63
[2024-10-27 03:05] VITALS: BP 92/56
[2024-10-27 06:01] LABS: Hematocrit 34.7 % (37.0-47.0); Hemoglobin 10.9 g/dL (12.0-16.0); Mean Corp Hgb Conc. 31.4 g/dL (33.0-37.0); Mean Corpuscular Hgb 30.9 pg (27.0-31.0); Mean Corpuscular Volume 98.3 fL (81.0-99.0); Mean Platelet Volume 12.3 fL (7.4-10.4); Platelet Count 240 10^3/uL (130-400); Red Blood Cell Count 3.53 10^6/uL (4.20-5.40); Red Cell Dist. Width 20.6 % (11.5-14.5); White Blood Cell Count 8.1 10^3/uL (4.8-10.8)
[2024-10-27 06:24] LABS: ALT (SGPT) 125 U/L (0-35); AST (SGOT) 206 U/L (14-36); Albumin 2.2 g/dl (3.5-5.0); Alkaline Phosphatase 174 U/L (38-126); Blood Urea Nitrogen 20 mg/dl (7-17); Calcium 7.8 mg/dl (8.4-10.2); Carbon Dioxide 27 mmol/L (22-30); Chloride 105 mmol/L (98-107); Estimated Creatinine Clearance 73 ml/min; Glucose 112 mg/dl (70-99); Potassium 4.4 mmol/L (3.5-5.1); Sodium 138 mmol/L (135-145); Total Bilirubin 5.8 mg/dl (0.2-1.3); Total Protein 5.5 g/dl (6.3-8.2); eGFR > 60.00
[2024-10-27 07:30] VITALS: BP 78/60
[2024-10-27 07:52] LABS: Absolute Neutrophils -Man Diff 4.1 10^3/uL (1.4-6.5)
[2024-10-27 07:53] LABS: Band Neutrophils 10 % (0-3); Eosinophils 6 % (0-6); Lymphocytes 24 % (20-51); Monocytes 19 % (2-9); Normal RBC Morphology Yes; Platelets Checked Yes; Segmented Neutrophils 41 % (42-75); Total Cells Counted 100
[2024-10-27] MEDS: ProAmatine 15 MG TUBE ×2 (09:30→12:05)
[2024-10-27] MEDS: SINGULAIR 10 MG TUBE (09:31)
[2024-10-27] MEDS: ONFI 10 MG TUBE (09:31)
[2024-10-27] MEDS: TRILEPTAL 600 MG TUBE (09:31)
[2024-10-27] MEDS: SENNA SYRUP 8.8 MG TUBE (09:31)
[2024-10-27] MEDS: DESENEX/MITRAZOL/ZEASORB 1 APPLIC TOPICAL (09:31)
--- NOTE | 2024-10-27 10:20 | W.PN.HOSP.TC ---
Addendum entered and electronically signed by Horacio Gallagher MD 10/27/24 13:12:
Seen and examined by me independently in collaboration with the director global medical affairs.
Lab data and imaging data reviewed.
Addendum as below :
Improving diarrhea. Notable on the C. difficile negative. Holding on laxatives for now. Patient did come in with severe constipation as an issue. Family advised to start MiraLAX as needed if no bowel movement in 2days and then make it scheduled
depending on progress.
Improving LFTs. No visible jaundice. Improved bilirubin and transaminitis. Again unclear etiology for acute hepatic dysfunction but improving. Advised to repeat LFTs next week.
Finished antibiotics for aspiration pneumonia. On home O2 without respiratory decompensation.
Medically stable for discharge.
Discussed with father at bedside.
Total time of discharge 35 minutes.
Original Note:
Today's Communication/Plan
-
Discharged today
Assessment / Plan
Assessment / Plan
48 F with cerebral palsy and frequent aspiration events now s/p PEG comes in with PEG malfunction where feeding was leaking from around PEG site. Patient has been having regular bowel movements. You leukocytosis found on 10/20, suspected aspiration
pneumonia.
#Aspiration pneumonia
Afebrile
COVID and influenza negative
Blood cultures show no growth
UA shows UTI
Per infectious disease continue Zosyn, completed course
Patient having significant phlegm production overnight, improved but still present. continue suction
Started patient on Mucinex on 10/23. Continue medication and suction. Educated family that they can continue to suction at home if they feel that she is producing excess phlegm and can purchase Mucinex [id number].
Elevation of bed for aspiration precaution
#PEG tube displacement likely secondary to severe constipation
At home on (On Compleat 1.5 45ml/hr with 50 ml/hr water flush for 16 hours daily) .
Resume enteral feeds at home as ordered prior to hospital
Continue tube feeds
GI following
#diarrhea
new onset on 10/26, mustard yellow
norovirus and C. difficile negative
Recommended holding MiraLAX and reducing frequency at home.
#Constipation
Continue Colace, senna and MiraLAX twice daily
Abdominal x-ray shows improvement in stool burden
Possible ileus on CT imaging. Surgery consulted and stated patient does not have symptoms of bowel obstruction. Can consider Gastrografin enema.
Patient currently having bowel movement
#Nonspecific pulmonary parenchymal opacity on CT Abdomen Pelvis
Consider echocardiogram and/or chest x-ray
Cardiology said no need for diuretics
Pulmonology stated opacities on chest imaging are chronic and wax and wane based on aspiration status
Chest x-ray shows low lung volumes with diffuse interstitial opacification bibasilar opacities
# Abnormal LFTs and concern for acute liver failure
Persistently elevated LFTs and high INR, downtrending
Hypotension possibly secondary to LFT increase from autoimmune process
Ammonia and lactic acid normal.
Acute liver failure workup per GI ordered
Since LFTs are downtrending, transfer to [facility] deferred for later
Completed NAC drip per [facility] protocol
Vitamin K ordered and doses given on 10/04 and 10/15
Daily MELD labs
#Thrombocytopenia
Resolved
#Pseudomonas UTI
Received cefepime for 5 days
#Vaginal discharge
Consulted gynecology and recommendations made on 10/18
Diflucan poor option given elevated LFTs
#Chronic hypotension
Systolics are in 90s at home as well per family
Midodrine changed to 10 mg 3 times a day from 15 mg twice a day
Blood pressure seems to stay in mid to high 90s to low 100s systolic
EKG negative. Echo shows EF of 60 to 65%
TSH and cortisol normal. Would retest cortisol outpatient, currently low normal. ACTH testing normal. Stable for discharge
#Seizure disorder
Continue clobazam and oxcarbazepine
#Cerebral palsy with functional dysplasia
#Chronic dysphagia status post PEG tube
#History of ovarian cancer status post surgery
DVT Prophylaxis: Lovenox subq
Code status - Full Code
Anticipated Discharge: Today
Subjective/Interval History
-
Date of Service: October 27, 2024
Patient alert this morning, father at bedside. No acute events overnight reported. Patient negative for norovirus and C. difficile. Recommended to the family to continue to hold her just reduced frequency of MiraLAX. Pending discharge today
Objective Data
-
Labs:
Laboratory Results
10/27/24
05:06
WBC 8.1
Hgb 10.9 L
Hct 34.7 L
Plt Count 240 D
Sodium 138
Potassium 4.4
Chloride 105
Carbon Dioxide 27
BUN 20 H
Creatinine 0.7
Glucose 112 H
Calcium 7.8 L
Total Bilirubin 5.8 H
AST 206 H
ALT 125 H
Alkaline Phosphatase 174 H
Vital Signs:
Vital Signs
Temp Pulse Resp BP Pulse Ox
97.4 F 88 22 78/60 99
10/27/24 07:30 10/27/24 09:30 10/27/24 07:30 10/27/24 09:30 10/27/24 10:08
I&O
10/26/24 10/27/24 10/28/24
06:59 06:59 06:59
Intake Total 0 / 0 770 / 770
Balance 0 / 0 770 / 770
Review of Systems
-
Unable to obtain full review of systems at this time due to: Patient Non-verbal
History Source: Patient
Physical Exam
-
General: No Apparent Distress and Comfortable
HEENT: Normocephalic and Atraumatic
Cardiac: S1/S2
GI: Soft, Nontender and Nondistended
Neuro: Awake
Psych: Calm
Data Reviewed
-
Labs: Labs Reviewed by me and Discussed with Physician
Old Records: Reviewed
[2024-10-27 11:01] VITALS: BP 109/73
--- NOTE | 2024-10-27 11:35 | CM ---
CM reviewed chart, patient for discharge today. CM spoke with patients father, patients mother has a procedure today, farther will provide transportation home around 4:00 p.m. once procedure is complete. Patients brother will be here visiting
patient in meantime. CM will update [facility]/ [facility] on patients discharge status. CM will continue to follow for all discharge planning needs.
Plan; home with family, [facility], family has home O2, [facility] tube feeds
[facility]: [phone]
[facility]: [phone]
[2024-10-27 16:01] VITALS: BP 110/73
== END 2024-10-27 17:35 | disposition home or self-care (01) | DRG 391 ==
LOC: 4 WEST ACU 10:43
PROVIDERS: Hospitalist; Internal Medicine Gastroenterology; Nurse Practitioner Adult Health; Specialist; Student in an Organized Health Care Education/Training Program; ADMITTING PHYSICIAN Internal Medicine; ATTENDING PHYSICIAN Internal Medicine; CONSULT PHYSICIAN Internal Medicine; CONSULT PHYSICIAN Internal Medicine Gastroenterology; CONSULT PHYSICIAN Internal Medicine Infectious Disease; CONSULT PHYSICIAN Obstetrics & Gynecology; CONSULT PHYSICIAN Surgery; EMERGENCY PHYSICIAN Emergency Medicine; FAMILY PHYSICIAN Family Medicine; OTHER PHYSICIAN Internal Medicine Hematology & Oncology
DX: K59.09 Other constipation (principal); J69.0 Pneumonitis due to inhalation of food and vomit; R53.2 Functional quadriplegia; K72.00 Acute and subacute hepatic failure without coma; K94.23 Gastrostomy malfunction; N39.0 Urinary tract infection, site not specified; J96.11 Chronic respiratory failure with hypoxia; D68.8 Other specified coagulation defects; Y83.3 Surgical operation with formation of external stoma as the cause of abnormal reaction of the patient, or of later complication, without mention of misadventure at the time of the procedure; G80.8 Other cerebral palsy; G40.909 Epilepsy, unspecified, not intractable, without status epilepticus; I95.89 Other hypotension; I10 Essential (primary) hypertension; D69.59 Other secondary thrombocytopenia; N95.2 Postmenopausal atrophic vaginitis; R19.7 Diarrhea, unspecified; B96.5 Pseudomonas (aeruginosa) (mallei) (pseudomallei) as the cause of diseases classified elsewhere; R13.12 Dysphagia, oropharyngeal phase; Z79.899 Other long term (current) drug therapy; Z85.43 Personal history of malignant neoplasm of ovary
CPT/HCPCS: 49465; 71045; 71046; 74018; 74022; 74177; 76700; 78226; 80048; 80053; 80143; 81003; 81015; 81256; 81513; 82103; 82140; 82248; 82390; 82525; 82533; 82728; 82784; 83516; 83540; 83550; 83605; 83690; 83735; 84443; 85025; 85027; 85610; 86038; 86376; 86381; 86644; 86645; 86663; 86664; 86665; 86704; 86705; 86706; 86709; 86790; 86803; 87040; 87077; 87086; 87102; 87186; 87324; 87340; 87449; 87481; 87491; 87497; 87502; 87591; 87661; 87798; 87811; 93005; 93306; 93975; 96361; 96374; 99285; A9537; J0132; J7030; Q9967

== ENCOUNTER → 2024-11-24 16:39 | Outpatient (REF) | payer MEDICARE, OTHER, SELFPAY ==
[2024-11-24 17:29] LABS: Urine Albumin Negative (Neg - Trace); Urine Bilirubin Negative (Negative); Urine Character Clear (Clear); Urine Color Yellow; Urine Glucose Negative (Negative); Urine Ketone Negative (Negative); Urine Leukocyte 1+ (Negative); Urine Nitrite Positive (Negative); Urine Occult Blood Negative (Negative); Urine Specific Gravity 1.015 (<1.030); Urine Urobilinogen Negative (Neg - 1+)
[2024-11-24 19:04] LABS: Urine Bacteria Few (Negative); Urine Red Blood Cell 0-2 /HPF (0-2); Urine White Cell 16-20 /HPF (0-5)
== END ==
LOC: REG 16:39
PROVIDERS: ATTENDING PHYSICIAN Family Medicine
DX: R31.9 Hematuria, unspecified (principal)
CPT/HCPCS: 81003; 81015; 87077; 87086; 87186

== ENCOUNTER → 2024-11-29 09:58 | Outpatient (REF) | payer MEDICARE, OTHER, SELFPAY ==
[2024-11-29 12:37] LABS: INR 1.34; PT 17.1 Sec (11.4-14.6)
[2024-11-29 13:15] LABS: ALT (SGPT) 47 U/L (0-35); AST (SGOT) 85 U/L (14-36); Albumin 2.2 g/dl (3.5-5.0); Alkaline Phosphatase 180 U/L (38-126); Blood Urea Nitrogen 24 mg/dl (7-17); Calcium 8.7 mg/dl (8.4-10.2); Carbon Dioxide 27 mmol/L (22-30); Chloride 101 mmol/L (98-107); Glucose 90 mg/dl (70-99); Potassium 4.2 mmol/L (3.5-5.1); Sodium 133 mmol/L (135-145); Total Bilirubin 1.9 mg/dl (0.2-1.3); Total Protein 5.5 g/dl (6.3-8.2); eGFR > 60.00
== END ==
LOC: HWLAB 09:58
PROVIDERS: ATTENDING PHYSICIAN Family Medicine
DX: R74.8 Abnormal levels of other serum enzymes (principal); I10 Essential (primary) hypertension; R73.01 Impaired fasting glucose; K75.89 Other specified inflammatory liver diseases
CPT/HCPCS: 36415; 80053; 85610

== ENCOUNTER → 2024-12-08 16:55 | Outpatient (REF) | payer MEDICARE, OTHER, SELFPAY | LOC: REG 16:55 | PROVIDERS: ATTENDING PHYSICIAN Family Medicine | DX: N39.0 Urinary tract infection, site not specified (principal) | CPT/HCPCS: 87086 ==

== ENCOUNTER 2024-12-20 03:00 | Inpatient (IN) | payer MEDICARE, OTHER, SELFPAY ==
[2024-12-19 23:05] VITALS: BP 127/98
--- NOTE | 2024-12-19 23:17 | ED.GENMED ---
History of Present Illness
General
Chief Complaint: Breathing Problem
Source: patient, family and ambulance crew
Exam Limitations: none
Time Seen by Provider: 12/19/24 23:12
Nursing documentation reviewed up to this point in time: agreed with
History of Present Illness
History of Present Illness:
This is a 48-year-old female who presents to the emergency department from home via EMS that presents with increased respiratory distress. She does have a history of cerebral palsy, seizures, quadriplegia, and multiple episodes of aspiration.
Patient is nonverbal at baseline. She is accompanied by her mother.
Vital signs are stable. Patient not hypoxic
Nursing note reviewed. I agree with nursing documentation up to this point in time.
Home Meds and allergies reviewed.
NUMBER AND COMPLEXITY OF PROBLEMS ADDRESSED AT THE ENCOUNTER
� Chronic conditions affecting care: Nonverbal status, chronic dysphagia with PEG tube, multiple episodes of aspiration pneumonia, cerebral palsy with functional quadriplegia, seizure disorder, esophageal web, hypertension,
ovarian cancer status post LUCERO and oophorectomy, vagus nerve stimulator implant, appendectomy, frequent pneumonia
� Acute Exacerbation and/or Progression of Chronic Illness: Respiratory distress
� Differential Diagnosis includes: Aspiration pneumonia, CHF, exacerbation of chronic lung disease
AMOUNT AND/OR COMPLEXITY OF DATA TO BE REVIEWED AND ANALYZED
I performed an independent evaluation of the following and my interpretation is:
EKG:
Pulse Ox: Hypoxic on room air, 87
Identification Technician: Sinus Rhythm
CT:
X-rays:
Ultrasound:
Laboratory Studies:
Other:
Review of other/old records:
Clinical information was obtained by an independent historian:
Prescriptions/Medications Considered but not given:
Further testing considered but not performed:
RISK OF COMPLICATIONS AND/OR MORBIDITY OR MORTALITY OF PATIENT MANAGEMENT
Social determinants of health affecting care: Good Social Support
Discussion with other providers:
Escalation of care including admission/observation vs risk of discharge considered: After being observed in the emergency department, patient is stable for discharge.
CRITICAL CARE NOTE:
Total Time (exclusive of procedures):
Update:
Past History
Past History
ED Past Medical History: Seizures and Other (Cerebral palsy)
Social History
Tobacco: Non-smoker
Alcohol: None
Drug: None
Personal: Single
Living: with family
Employment: Not employed
Review of Systems
Review of Systems
Unable to obtain full review of systems at this time due to: non-verbal
All Other Systems: Not applicable
Respiratory: Reports trouble breathing
Phy Exam
General Physical Exam
General Presentation: moderate distress
General age: appears older than age
General Skin: warm and dry
General Habitus: debilitated and frail
General Mental: usual mental status
General Hydration: appears well hydrated
Cardiovascular Exam
Cardiovascular Exam: tachycardia
Pulmonary Exam
Pulmonary Exam: accessory muscle use, generalized wheezing and respiratory distress
Oxygen Status: BiPAP
Cough: coarse cough
Respirations: accessory muscle use and mild increase in effort
Gastrointestinal Exam
Gastrointestinal Exam: normal bowel sounds and non tender
External Findings: gastrostomy tube
Palpation: generalized: No tenderness
Neurological Exam
Neurological Exam: non verbal and other (Baseline mental status according to parents)
Musculoskeletal Exam
Musculoskeletal Exam: neuro vasc intact and other (Contractures)
Skin Exam
Skin Exam: normal color and warm/dry
Scores
Heart Failure Risk
Heart Failure Risk Score: Not Applicable
Sepsis
Sepsis Screening
Sepsis Assessment: Septic Shock
Sepsis Screening: Hypotension, Worsening O2 Saturation, Need for mechanical ventilation or BiPAP, Sustained Hypotension-SBP <90,MAP<65, or SBP decrease 40mmHg or more and Vasopressor support required
Sepsis Screen
Sepsis Screen: Septic Shock
Date: 12/20/24
Time: 02:30
Course
Orders/Labs/Results
Orders:
Orders
12/19/24 23:04
Electrocardiogram (*1) Urgent
Reason for Study: Other
Other Reason for Exam: Respiratory Distress
Cardiac Monitoring- Treatment ONCE
EKG- Treatment ONCE
IV Insert/Care/Rem.- Treatment PRN
Complete Blood Count/With Diff Urgent
Comprehensive Metabolic Panel Urgent
HCG, Serum Qualitative Screen Urgent
Comment: Notify provider if positive test present
NT-proBNP Urgent
Troponin I Urgent
Blood Culture Urgent
MANSOOR Source: Blood/Venous
Specimen Description:
Test Result ONCE
CR Chest Portable - 1 View Urgent
Comment:
Reason For Exam: respiratory distress
Reason Study Needs to be Portable: Patient Unstable
O2 Therapy [RESP] Urgent
Titrate/Wean O2 to maintain O2 sat greater than (%): 93
Special Instructions: TO MAINTAIN CONTINUOUS O2 SATS >/= 93%
Pulse Ox/cont/shift [RESP] Urgent
Quantity: 1
Special Instructions: continuous pulse ox
12/19/24 23:15
Lactic Acid Q4H
Comment: WITH 1ST SET OF BLOOD CULTURES,CANCEL 2ND LACTIC ACID IF FIRST <2
12/19/24 23:22
Ron Placement- Treatment ONCE
Reason for insertion: I&O's Critical Care
12/19/24 23:23
COVID-19 Antigen Urgent
Source: Nasal Swab
Influenza A+B Rapid Molecular Urgent
MANSOOR Source: Nasal Swab
Specimen Description:
12/19/24 23:47
Acetaminophen [Tylenol/Feverall] 650 mg .ROUTE .STK-MED ONE
Acetaminophen [Tylenol/Feverall] 650 mg RECTAL NOW STA
12/19/24 23:50
Urinalysis Reflex To Culture Urgent
Date Specimen was Collected: 12/19/24
Time Specimen was Collected: 23:28
Urine Microscopic Reflex Cult Urgent
Urine Culture Urgent
MANSOOR Source: U
Specimen Description:
Date Specimen was Collected: 12/19/24
Time Specimen was Collected: 23:28
Piperacillin/Tazo 4.5 Gram [Zosyn] 4.5 gram in 100 ml IV NOW
12/20/24 01:09
0.9% Sodium Chloride 1000 ml [Nss] 1,000 ml IV BOLUS
12/20/24 01:15
NORepinephrine 4 MG/250 ML [Levophed] 4 mg in 250 ml IV PER PROTOCOL
Initial dose in mcg/min, then titrate:: 5
Titrate to keep:: MAP > 65 mmHg
Titrate by mcg/min:: 1-2 mcg/min
Frequency of titrations (minutes):: 5
Maximum dose in ICU in mcg/min:: 30
Maximum dose in IMU in mcg/min:: 8
Maximum dose in IVU in mcg/min:: 4
Begin to taper infusion when:: Remained at goal for 4hrs
Taper by mcg/min:: 1-2 mcg/min
Frequency of taper (minutes) if patient maintains goal:: 30
Taper to off?: Yes
If infusion off & no longer maintaining goal:: Contact Provider
12/20/24 01:22
Blood Culture Urgent
MANSOOR Source: Blood/Venous
Specimen Description:
12/20/24 01:26
0.9% Sodium Chloride 500 ml [Nss] 500 ml IV BOLUS
12/20/24 03:15
Lactic Acid Q4H
Comment: WITH 1ST SET OF BLOOD CULTURES,CANCEL 2ND LACTIC ACID IF FIRST <2
Abnormal Lab Results
12/19/24 12/20/24
23:50 01:06
WBC 19.8 H 10^3/uL
(4.8-10.8)
RBC 3.72 L 10^6/uL
(4.20-5.40)
Hct 35.1 L %
(37.0-47.0)
MCH 32.5 H pg
(27.0-31.0)
RDW 14.7 H %
(11.5-14.5)
MPV 10.8 H fL
(7.4-10.4)
Abs Immat Gran (auto) 0.2 H 10^3/uL
(0-0.05)
Absolute Neuts (auto) 16.8 H 10^3/uL
(1.4-6.5)
Absolute Lymphs (auto) 1.1 L 10^3/uL
(1.2-3.4)
Absolute Monos (auto) 1.6 H 10^3/uL
(0.1-0.6)
Immature Gran % 1.1 H %
(0-0.5)
Neutrophils % 84.8 H %
(42.2-75.2)
Lymphocytes % 5.5 L %
(20.5-51.1)
BUN 24 H mg/dl
(7-17)
Creatinine 0.5 L mg/dL
(0.6-1.0)
Glucose 111 H mg/dl
(70-99)
Calcium 8.1 L mg/dl
(8.4-10.2)
AST 77 H U/L
(14-36)
ALT 47 H U/L
(0-35)
Alkaline Phosphatase 199 H U/L
(38-126)
Total Protein 4.9 L g/dl
(6.3-8.2)
Albumin 1.7 L g/dl
(3.5-5.0)
Leukocyte Esterase Rfl 1+ A
(Negative)
Urine RBC 3-6 A /HPF
(0-2)
Urine Bacteria (Reflex) Few A
(Negative)
Urine Albumin (Reflex) 1+ A
(Neg - Trace)
12/20/24 01:06
12/20/24 01:06
Vital Signs
Initial and Last Documented VS:
Initial Vital Signs
Pulse Resp BP
118 28 127/98
12/19/24 23:05 12/19/24 23:05 12/19/24 23:05
Last Documented Vital Signs
Pulse Resp BP Pulse Ox
92 30 107/64 93
12/20/24 02:15 12/20/24 01:45 12/20/24 02:15 12/20/24 02:15
Procedures
Central Line
Left Femoral:
If no, reason: Emergency procedure
Central line lumen: triple
Central line complications: none
Sterile dressing applied?: Yes
*Critical Care Note
Total Time (30-74mins, 75-104mins- exclusive of procedures): 45 (Critical care statement: A total of 45 minutes of critical care time was provided for this patient. This time is separate from time utilized to perform the aforementioned documented
procedures. Aggregate critical care time includes only time during which I was engaged in work directl)
ED Attending Note
-
Portions of this chart may have been created with voice recognition software.� Occasional wrong word or��sound alike� substitutions may have occurred due to the inherent limitations of voice recognition software.
Discharge Plan
Departure
Patient Disposition: Admit
Date of Disposition: 12/20/24
Time of Disposition: 01:14
Admit to: ICU
Presentation/result/management discussed w/ accepting MD/DO: Hospitalist
Discharge Problem:
Acute hypoxic respiratory failure, Bilateral pneumonia, UTI (urinary tract infection), Sepsis, Hypotension
Prescriptions:
No Action
fluticasone propionate 50 mcg/actuation [place],Suspension
2 spray INTRANASAL HS
clobazam 10 mg Tablet
10 mg feeding tube BID Qty: 60 1RF
oxcarbazepine 300 mg Tablet
600 mg feeding tube BID Qty: 120 1RF
Probiotic capsule
1 cap feeding tube DAILY
ascorbic acid (vitamin C) [Vitamin C] 500 mg tablet
500 mg feeding tube HS
montelukast 10 mg tablet
10 mg feeding tube DAILY
midodrine 5 mg Tablet
15 mg feeding tube TID @ 0800,1200,1700 Qty: 90 1RF
nitrofurantoin macrocrystal 50 mg Capsule
50 mg PO DAILY
Zyrtec
10 mg feeding tube DAILY
Referrals:
Timbo Courtney MD [Family Provider] -
Interventions
Interventions:
*Risk Screen - Suicide Last Done: 12/19/24 23:05
*General Assessment Last Done: 12/19/24 23:05
*Neglect/Abuse Screening Last Done: 12/19/24 23:05
*ED COVID-19 Vaccine History Last Done: 12/19/24 23:05
ED- Cardiac Assessment Last Done: 12/19/24 23:57
ED- Pulmonary Assessment Last Done: 12/19/24 23:57
Discharge Date and Time
Print Language: BULGARIAN
[2024-12-19 23:33] VITALS: PULSE 2
[2024-12-19] MEDS: TYLENOL/FEVERALL 650 MG RECTAL (23:55)
[2024-12-19 23:56] LABS: COVID-19 Antigen Negative (Negative)
[2024-12-19 23:57] VITALS: BMI 26.7
[2024-12-20] VITALS (99 sets, daily range): BP systolic 68–148; BP diastolic 27–117; PULSE 2–89; BMI 27.2
[2024-12-20 00:09] LABS: Urine Albumin 1+ (Neg - Trace); Urine Bilirubin Negative (Negative); Urine Character Clear (Clear); Urine Color Amber; Urine Glucose Negative (Negative); Urine Ketone Negative (Negative); Urine Leukocyte 1+ (Negative); Urine Nitrite Negative (Negative); Urine Occult Blood Negative (Negative); Urine Specific Gravity 1.025 (<1.030); Urine Urobilinogen Negative (Neg - 1+)
[2024-12-20 00:21] LABS: Urine Mucus Moderate
[2024-12-20 00:24] LABS: Urine Bacteria Few (Negative)
[2024-12-20] MEDS: ZOSYN 100 IV (01:08)
[2024-12-20] MEDS: NSS 1000 IV (01:09)
[2024-12-20 01:16] LABS: % Basophils 0.3 % (0-2); % Eosinophils 0.4 % (0-6); % Immature Granulocytes 1.1 % (0-0.5); % Lymphocytes 5.5 % (20.5-51.1); % Monocytes 7.9 % (1.7-9.3); % Neutrophils 84.8 % (42.2-75.2); Absolute Basophils 0.1 10^3/uL (0-0.2); Absolute Eosinophils 0.1 10^3/uL (0-0.7); Absolute Immature Granulocytes 0.2 10^3/uL (0-0.05); Absolute Lymphocytes 1.1 10^3/uL (1.2-3.4); Absolute Monocytes 1.6 10^3/uL (0.1-0.6); Absolute Neutrophils 16.8 10^3/uL (1.4-6.5); Hematocrit 35.1 % (37.0-47.0); Hemoglobin 12.1 g/dL (12.0-16.0); Mean Corp Hgb Conc. 34.5 g/dL (33.0-37.0); Mean Corpuscular Hgb 32.5 pg (27.0-31.0); Mean Corpuscular Volume 94.4 fL (81.0-99.0); Mean Platelet Volume 10.8 fL (7.4-10.4); Nucleated Red Blood Cells % 0 %; Platelet Count 264 10^3/uL (130-400); Red Blood Cell Count 3.72 10^6/uL (4.20-5.40); Red Cell Dist. Width 14.7 % (11.5-14.5); White Blood Cell Count 19.8 10^3/uL (4.8-10.8)
[2024-12-20] MEDS: LEVOPHED 250 IV ×2 (01:20→12:11)
[2024-12-20] MEDS: NSS 500 IV (01:27)
[2024-12-20 01:32] LABS: HCG, Serum Qualitative Screen Negative
[2024-12-20 01:39] LABS: ALT (SGPT) 47 U/L (0-35); AST (SGOT) 77 U/L (14-36); Albumin 1.7 g/dl (3.5-5.0); Alkaline Phosphatase 199 U/L (38-126); Blood Urea Nitrogen 24 mg/dl (7-17); Calcium 8.1 mg/dl (8.4-10.2); Carbon Dioxide 25 mmol/L (22-30); Chloride 106 mmol/L (98-107); Estimated Creatinine Clearance 88 ml/min; Glucose 111 mg/dl (70-99); Potassium 4.1 mmol/L (3.5-5.1); Sodium 136 mmol/L (135-145); Total Bilirubin 1.3 mg/dl (0.2-1.3); Total Protein 4.9 g/dl (6.3-8.2); eGFR > 60.00
[2024-12-20 01:42] LABS: NT-proBNP 651 pg/ml; Troponin I < 0.012 ng/ml
[2024-12-20 01:45] LABS: Lactic Acid 1.7 mmol/L (0.7-2.0)
--- NOTE | 2024-12-20 02:17 | HPS.HSE ---
Family Physician
-
Family Physician: Timbo Courtney
Chief Complaint
-
Hypoxic respiratory distress
History of Present Illness
This is a 48-year-old with past medical history significant for seizures, cerebral palsy chronic hypotension on aspiration status post PEG, history of ovarian cancer brought to the emergency department from home for hypoxic respiratory distress.
History cannot be obtained from patient. Family reported that she had been doing well since discharge from the hospital. She has chronic right-sided lower and upper extremity edema which has been unchanged. She had a urinary tract infection for
some time and was treated with 7 days of outpatient antibiotics with clearance of the UA. She been tolerated her tube feeds for 2 5 mL an hour for 16 hours overnight without obvious regurgitation. She has regular loose stools and no abdominal
distention. They did note some bruising around the PEG site but none like prior. She showed no signs of any breathing difficulties up until yesterday. They reported that she had a temp of around 100.3 at home. They noted that she was grimacing
but did not have seizure-like activity otherwise. They denied any observed aspiration event.
On arrival in the emergency department she was hypoxic and was on supplemental oxygen and started on BiPAP. She is satting 93% on 100% BiPAP 14/8, blood pressure was hypotensive on arrival had to be started on pressors. When I saw she was on
Levophed with a blood pressure of 100/60, ECG shows sinus tachycardia at 114, troponin was negative, BNP was 600. COVID was negative, influenza was negative, UA was clear. He had leukocytosis to 19,000 with stable hemoglobin platelets.
Electrolytes were normal, BUN/creatinine were unchanged and normal had a creatinine of 0.5. Lactic acid was 1.7. Chest x-ray shows multifocal infiltrates seen bilateral lungs likely lower multifocal lower lobe pneumonia.
Medical History
Past Medical History
Past Medical History: Reports Cancer (Ovarian) and Seizures
Additional Past Medical History:
Cerebral palsy
Recent acute liver injury of unknown etiology
Preserved EF
Chronic hypertension
Chronic dysphagia status post PEG
Past Surgical History: Reports Other
Social History
Tobacco: Non-smoker
Alcohol: None
Drug: None
Personal: Single
Living: With Family
Employment: Disabled
Family History
Family History: Not pertinent
Allergies / Home Medications
Allergies reflects when Allergies were last updated in [facility].
Home Medications with original date entered in [facility]
Allergy/Medication List:
Allergies
Allergy/AdvReac Type Severity Reaction Status Date / Time
brompheniramine Allergy hyper Verified 12/20/24:
[From Dimetapp Cold-Allergy
(PE)]
cephalexin [From Keflex] Allergy Unknown Verified 12/20/24:29
chloral hydrate Allergy hyper Verified 12/20/24:29
diphenhydramine Allergy hyper Verified 12/20/24:29
[From Benadryl]
latex Allergy Swelling Verified 12/20/24 01:29
levofloxacin Allergy Unknown Verified 12/20/24 01:29
phenobarbital Allergy hyper Verified 12/20/24 01:29
phenylephrine Allergy hyper Verified 12/20/24 01:29
[From Dimetapp Cold-Allergy
(PE)]
phenytoin [From Dilantin] Allergy Rash Verified 12/20/24 01:29
Sulfa (Sulfonamide Allergy Hives Verified 12/20/24 01:29
Antibiotics)
topiramate [From Topamax] Allergy Rash Verified 12/20/24 01:29
Home Medications
fluticasone propionate 50 mcg/actuation nasal spray,suspension 2 spray intranasal HS Allergies 03/17/24
clobazam 10 mg tablet 10 mg feeding tube BID #60 tabs 04/21/24
oxcarbazepine 300 mg tablet 600 mg (2 x 300 mg) feeding tube BID #120 tabs 04/21/24
Probiotic 1 cap feeding tube DAILY 06/12/24
ascorbic acid (vitamin C) 500 mg tablet (Vitamin C) 500 mg feeding tube HS Supplement 06/12/24
montelukast 10 mg tablet 10 mg feeding tube DAILY Lung/Breathing Issues 06/12/24
midodrine 5 mg tablet 15 mg (3 x 5 mg) feeding tube TID @ 0800,1200,1700 #90 tabs 10/27/24
Zyrtec 10 mg feeding tube DAILY 12/20/24
nitrofurantoin macrocrystal 50 mg capsule 50 mg PO DAILY 12/20/24
Review of Systems
-
Unable to obtain full review of systems at this time due to: Patient Non-verbal
History Source: Family
Constitutional: Reports Fever
Respiratory: Reports Trouble Breathing
Cardiac: Reports No Symptoms
Abdomen/GI: Reports No Symptoms
: Reports No Symptoms
Musculoskeletal: Reports Edema
Skin: Reports No Symptoms
Neurological: Reports No Symptoms
Endocrine: Reports No Symptoms
Hematologic/Lymphatic: Reports No Symptoms
Psych: Reports No Symptoms
Physical Exam
Vital Signs
Vital Signs
Pulse Resp BP Pulse Ox
90 30 104/66 92
12/20/24 02:00 12/20/24 01:45 12/20/24 02:00 12/20/24 02:00
Physical Exam
General: Appears Chronically Ill
HEENT: Anicteric, Atraumatic and Oxygen
Respiratory: Clear (She started clear anteriorly with decreased breath sounds) and Decreased Breath Sounds
Cardiac: S1/S2 and Tachycardia
Breast: Deferred by me
GI: Soft, Non Tender, Non Distended and Peg Tube
Rectal: Deferred by Provider
Genito-urinary: Clear Urine and Ron
Musculoskeletal: No Clubbing, No Cyanosis, Edema, Right Upper Extremity and Edema, Right Lower Extremity
Skin: Warm
Neuro: Awake (Patient on BiPAP, minimally responsive)
Hematologic/Lymphatic: No Lymphadenopathy
Psych: Calm
Laboratory Results
-
12/20/24 01:06
02/05/25 01:06
Laboratory Results
Lactic Acid 1.7 mmol/L (0.7-2.0) 12/20/24 01:06
Total Bilirubin 1.3 mg/dl (0.2-1.3) 12/20/24 01:06
AST 77 U/L (14-36) H 12/20/24 01:06
ALT 47 U/L (0-35) H 12/20/24 01:06
Alkaline Phosphatase 199 U/L (38-126) H 12/20/24 01:06
Troponin I < 0.012 ng/ml 12/20/24 01:06
Data Reviewed
-
Diagnostic Radiology: Image Personally Visualized and interpreted
Medical Tests (Nuc Med, Echo, EKG etc): Image Personally Visualized and interpreted
Lab Data: Labs Reviewed by me
Old Records: Reviewed
Impression/Plan
-
IMPRESSION:
Four 8-year-old female with history of seizures, cerebral palsy, dysphagia status post PEG, history of prior multifocal pneumonia who presents to the emergency department with hypoxic respiratory distress and fever at home. Chest x-ray consistent
with multifocal pneumonia. COVID and flu negative. Troponin is negative. She does not appear with pleural body volume overloaded but does have right-sided edema which is chronic. Hypotensive. Normal lactic acid levels.
PLAN:
1.Pneumonia - Patient with bilateral infiltrates, wbc 19k. Hypoxic on 100% O2 on bipap. No obvious aspiration per family. Hypotensive. Nml lactate
- admit to ICU on bipap
- blood cultures sent
- urine strep and legionella
- recent hospital admit, so cover for HAP & aspiration with Vanc/Zosyn
- check mrsa swab
- procal in am
- respiratory support with bipap for now
- wob tolerable with RR of 25, check vbg in 1 hour
- continue levophed for now, restart patient's midodrine in am
- child's nurse consult.
2. Seizures
- prn lorazepam
- continue oxcarbazepine
- continue clobazam
3. Feeding
- tube feeds 16 hrs per day, 45ml/hr with 50ml/hr water flushes
- likely trial of jevity 1.5 during day
- nutrition consult
4. Right foot edema
- check RLE u/s
5. Transaminitis - h/o transaminitis on last admission. Unclear etiology and not finalized by biopsy. Possibly abx related
- trend lfts
DVT PPX - lovenox sq
Code status - full code
[2024-12-20] MEDS: VANCOCIN 530 MG IV (03:45)
[2024-12-20] MEDS: LR 1000 IV ×3 (03:46→22:52)
[2024-12-20 05:16] LABS: Hematocrit 36.8 % (37.0-47.0); Hemoglobin 12.4 g/dL (12.0-16.0); Mean Corp Hgb Conc. 33.7 g/dL (33.0-37.0); Mean Corpuscular Hgb 32.1 pg (27.0-31.0); Mean Corpuscular Volume 95.3 fL (81.0-99.0); Mean Platelet Volume 10.9 fL (7.4-10.4); Platelet Count 290 10^3/uL (130-400); Red Blood Cell Count 3.86 10^6/uL (4.20-5.40); Red Cell Dist. Width 14.9 % (11.5-14.5); Venous Blood Gas B.E. -0.7 mmol/L (-4 to +4); Venous Blood Gas HCO3 24.2 mmol/L (22-27); Venous Blood Gas O2 Sat % 99.2 %; Venous Blood Gas pCO2 40 mmHg (35-48); Venous Blood Gas pH 7.39 (7.32-7.43); Venous Blood Gas pO2 107 mmHg (30-50); White Blood Cell Count 21.1 10^3/uL (4.8-10.8)
[2024-12-20 05:41] LABS: ALT (SGPT) 48 U/L (0-35); AST (SGOT) 81 U/L (14-36); Albumin 1.7 g/dl (3.5-5.0); Alkaline Phosphatase 205 U/L (38-126); Total Bilirubin 1.6 mg/dl (0.2-1.3)
[2024-12-20 06:12] LABS: Procalcitonin 0.88 ng/ml (0.0-0.25)
[2024-12-20 06:13] LABS: Cortisol, Random 16.6 ug/dl
[2024-12-20] MEDS: ZOSYN 50 IV ×4 (06:27→23:14)
--- NOTE | 2024-12-20 07:47 | EDRN ---
the pt was received from previous night order selector nurse Annita MUELLER, the pt is sleeping in stretcher in the lowest position, side rails up x2, call velazquez within reach, HOB elevated, no s/s of distress, no s/s of pain, the pt is non verbal and bedbound at
baseline per the pts mother, the pts mother is currently at the pts bedside, VS WNL, the pt is currently on Bipap 14/8 patients RR 23, 19lpm ad Sp02 is currently 99%, the pt has generalized edema, the pt has a Left arm #[address] that was
flushed and no s/s of infiltration present, the pt also has a Left Fem triple lumen central line, all 3 lumens were flushed with positive blood return, Levophed is currently running at 5mcg/min to keep MAP >65, and LR is currently also running at
100cc/hour, the pt has a 16 italian indwelling urinary catheter that was placed in the ER that is draining missy yellow urine, assessment charted in work list, will continue to monitor the pt closely
--- NOTE | 2024-12-20 07:59 | EDRN ---
this RN called the receiving ICU nurse Imani MUELLER and gave verbal report
--- NOTE | 2024-12-20 08:35 | PHA.VAN.IN ---
Assessment
- Assessment
Renal Function: Appears similar to baseline
Concomitant Antimicrobials: piperacillin/tazobactam
AUC Dosing Plan
- Dosing Variables
Dosing Weight (kg): 58
Dosing CrCl (ml/min): 88
Vd coefficient (L/kg): 0.7
- Empiric Dosing
Initial / Loading Dose: 1500mg - 2 03:45
Maintenance Regimen: Vanc 750mg Q12H starting at 1800
Estimated AUC (mcg*h/mL): 496
Estimated Peak (mcg*h/mL): 30.5
Estimated Trough (mcg/ml): 13
Estimated Half Life (H): 8.9
- Monitoring
No levels ordered at this time: consider levels in next few days
Pharmacokinetics Vancomycin I
- -
Patient Age: 48
Patient Sex: Female
Vancomycin Day #: 1
Indication: Pulmonary/Respiratory
Requesting Provider: Dr. Rivera
Pertinent Antimicrobial Allergies:
cephalexin - unknown
levofloxacin - unknown
sulfonamide antibiotics - hives
Height / Weight:
Height 4 ft 10 in
Actual Weight 57.9 kg
Pertinent Past Medical History: Cerebral palsy
- Vital Signs / Lab Results
Temp Pulse Resp BP Pulse Ox
98.5 F 78 22 109/58 95
12/20/24 07:38 12/20/24 08:15 12/20/24 08:15 12/20/24 08:15 12/20/24 08:15
Lab Results - Hematology
12/20/24 12/20/24
01:06 05:09
WBC 19.8 H 21.1 H
Lab Results - Chemistry
12/20/24 12/20/24
01:06 05:09
BUN 24 H
Creatinine 0.5 L
Estimated Creat Clear 88
Albumin 1.7 L 1.7 L
12/20/24 12/20/24
01:06 03:15
Lactic Acid 1.7 Cancelled
Lab Results - Urine
12/19/24
23:50
Urine Nitrite (Reflex) Negative
Leukocyte Esterase Rfl 1+ A
Urine WBC (Reflex) 6-10
Ur Squamous Epith Cells 6-10
Urine Bacteria (Reflex) Few A
Microbiology Results
12/19/24 23:23 Influenza Types A & B (SAMARA) - Final
Nasal Swab Negative for Influenza A & B, NAAT
Negative results must be combined with clinical observations
and patient history.
Nucleic Acid Amplification test (NAAT)performed on the
[employer] NOW platform.
--- NOTE | 2024-12-20 09:57 | PTCARENOTE ---
Pt arrived to [facility]m 3366 at 0850 via stretcher from ER. Pt nonverbal at baseline, on Bipap w/ Resp Therapy and TANKER SERVICE ATTENDANT in attendance. Transferred to hospital bed, placed on panel monitor- NSR HR 80's. POx 87% on 6l/min via Bipap 28/06. Resp Therapy
increased O2 to 10 l/min w/ Pox improved to 95%. Pt arrived w/ Levophed infusing @ 5mcg/min via Lt femoral TLC. LR infusing @ 100ml/hr. Titrating Levophed per orders to keep MAP >65. PEG tube present-remains clamped. CHG bath completed and comfort
care provided. No distress noted. Dr Choi in room to evaluate pt. Orders for TF received. Waiting on abdominal xray to confirm PEG tube placement. Pt's mother in room- updated on plan of care, pt's present condition and questions answered. Safe
environment maintained.
--- NOTE | 2024-12-20 10:34 | CON.ID ---
Consultation
-
Date/Time Consultation Requested: 12/20/24 93:04
Date/Time Consultation Performed: 12/20/24 10:34
Requesting Provider: Dr Rivera
Performing Provider: Dr Sy
Reason for Consultation: sepsis
Chief Complaint / Past History
Chief Complaint
Hypoxic respiratory distress
History of Present Illness
Ms Orantes is a 48 year old female with history of cerebral palsy, seizures, functional quadriplegia, chronic hypotension on midodrine 15 mg TID, s/p PEG, nonverbal, h/o ovarian cancer who presented to the ER for hypoxic resp distress. History
limited by the condition of the patient obtained by chart review. Note recent hospitalization 10/08-10/27 for PEG tube malfunction and UTI.
Family reported that she had been doing well since discharge. Family noted Tmax 100.3 at home the day before arrival and grimacing but no seizure like activity. Chronic right-sided lower and upper extremity edema - unchanged. Note recent UTI
treated with 7 days of outpatient antibiotics - unclear which one. Tolerating tube feeds without obvious regurgitation. She has regular loose stools and no abdominal distention. Family reported some bruising around the PEG site but much less than
last admission. No shortness of breath.
In the ER she was hypoxic and started on bipap, hypotensive and pressors started, sinus tachycardia, WBC 19, hgb 12, plt 264, L shift noted, na 136, Cr 0.5, lactic acid 1.7, t bili 1.6, d bili 1.0, ast 81, alt 48, alk pohs 205, procal 0.8, hcg
negative, covid and flu negative, UA without pyuria. CXR bilateral diffuse pneumonia vs pulmonary edema she has a device in the l chest wall - defunct neurostimulator per mom. Currently on vancomycin and zosyn. ID is consulted for assistance with
management.
Past History
Additional Past Medical History:
Cerebral palsy
Recent acute liver injury of unknown etiology
Preserved EF
Chronic hypertension
Chronic dysphagia status post PEG
Past Surgical History: Other
Additional Past Surgical History:
PEG
defunct neurostimulator per mom
Allergy History:
brompheniramine [From Dimetapp Cold-Allergy (PE)] Allergy (Verified 12/20/24)
hyper
cephalexin [From Keflex] Allergy (Verified 12/20/24)
Unknown
chloral hydrate Allergy (Verified 12/20/24)
hyper
diphenhydramine [From Benadryl] Allergy (Verified 12/20/24)
hyper
latex Allergy (Verified 12/20/24)
Swelling
levofloxacin Allergy (Verified 12/20/24)
Unknown
phenobarbital Allergy (Verified 12/20/24)
hyper
phenylephrine [From Dimetapp Cold-Allergy (PE)] Allergy (Verified 12/20/24)
hyper
phenytoin [From Dilantin] Allergy (Verified 12/20/24)
Rash
Sulfa (Sulfonamide Antibiotics) Allergy (Verified 12/20/24)
Hives
topiramate [From Topamax] Allergy (Verified 12/20/24)
Rash
Medications Reviewed: Yes
Social History
Tobacco: Non-Smoker
Alcohol: None
Drug: None
Family History
Family History: Not Pertinent
Review of Systems
Review of Systems
unable to obtain due to the condition of the patient
Vital Signs
Temp Pulse Resp BP Pulse Ox
97.5 F 82 30 128/31 97
12/20/24 09:13 12/20/24 10:00 12/20/24 10:00 12/20/24 09:45 12/20/24 10:00
Physical Exam
Physical Exam
Constitutional: Chronically Ill
Cardiovascular: Regular Rate and S1/S2; Negative Murmur or Rub
Pulmonary: Clear and Symmetric; Negative Wheezes, Rales or Rhonchi
Gastrointestinal: Soft, Non Tender, Non Distended and Normal Bowel Sounds
Skin: Warm and Dry; Negative Rash or Jaundice
Lab / Diagnostic Study Results
12/20/24 05:09
12/20/24 01:06
Abs Immat Gran (auto) 0.2 10^3/uL (0-0.05) H 12/20/24 01:06
Absolute Neuts (auto) 16.8 10^3/uL (1.4-6.5) H 12/20/24 01:06
Absolute Lymphs (auto) 1.1 10^3/uL (1.2-3.4) L 12/20/24 01:06
Absolute Monos (auto) 1.6 10^3/uL (0.1-0.6) H 12/20/24 01:06
Absolute Basos (auto) 0.1 10^3/uL (0-0.2) 12/20/24 01:06
Immature Gran % 1.1 % (0-0.5) H 12/20/24 01:06
Neutrophils % 84.8 % (42.2-75.2) H 12/20/24 01:06
Lymphocytes % 5.5 % (20.5-51.1) L 12/20/24 01:06
Monocytes % 7.9 % (1.7-9.3) 12/20/24 01:06
Eosinophils % 0.4 % (0-6) 12/20/24 01:06
Basophils % 0.3 % (0-2) 12/20/24 01:06
Lactic Acid Cancelled 12/20/24 03:15
Procalcitonin 0.88 ng/ml (0.0-0.25) H 12/20/24 05:09
Ur Squamous Epith Cells 6-10 /LPF (Few) 12/19/24 23:50
Microbiology Results
Micro:
12/20/24 01:22 Blood Culture - Pending
Blood/Venous
12/20/24 01:06 Blood Culture - Pending
Blood/Venous
12/19/24 23:50 Urine Culture - Pending
Urine
12/19/24 23:23 Influenza Types A & B (SAMARA) - Final
Nasal Swab Negative for Influenza A & B, NAAT
Negative results must be combined with clinical observations
and patient history.
Nucleic Acid Amplification test (NAAT)performed on the
[employer] ID NOW platform.
Assessment / Plan
Probable Multifocal Pneumonia - CAP
Hypoxemic resp failure
Reported Allergy vs intolerance of cephalexin, levofloxacin, sulfa (hives)
PEG
Aphasic at baseline
Chronic hypotension on midodrine 15 mg TID at baseline
H/o colonization with pseudomonas
- sputum culture if able to obtain
- blood cultures x2 in progress
- influenza and covid negative; strep pneumo/legionella urine ags pending
- HCAP no longer a recognized entity (no significant difference in epidemiology of pathogens compared to CAP), HAP distinguished by developing inpatient; I do note patient is known to be colonized with Pseudomonas and will continue Pseudomonal
coverage
- can continue zosyn for now
- add doxycycline, stop vancomycin
follow clinically
[2024-12-20] MEDS: ProAmatine TUBE (11:47)
[2024-12-20] MEDS: ProAmatine 15 MG TUBE ×2 (11:47→18:01)
[2024-12-20] MEDS: VIBRAMYCIN 100 MG TUBE (11:48)
[2024-12-20] MEDS: SINGULAIR 10 MG TUBE (11:48)
[2024-12-20] MEDS: ONFI 10 MG TUBE ×2 (11:48→21:14)
--- NOTE | 2024-12-20 12:35 | PTCARENOTE ---
Bipap removed and pt placed on O2 via Midflow 10l/min. POx 91-95% Oral care completed. Turned/repositioned, comfort care provided. Ordered meds administered via PEG-flushes w/o difficulty. Pt's mom remains at bedside- kept updated on plan of care.
Tapering Levophed gtt while maintaining SBP >100. No additional changes from previous assessment findings.
--- NOTE | 2024-12-20 12:43 | CON.INTV ---
Consultation
Consultation Request
Date/Time Consultation Requested: 12/20/2024
Date/Time Consultation Performed: 12/20/2024
Requesting Provider: Fabio Rivera MD
Performing Provider: Tawana Albrecht MD
Reason for Consultation: Acute hypoxic respiratory distress
Medical History
-
Chief Complaint: Difficulty with breathing
History of Present Illness:
The patient is a 49-year-old nonverbal female who presented with mother mother`s feeder operator automatic to ER via EMS for an evaluation of increased respiratory distress and being hypoxic. The patient has a history of cerebral palsy complicated by seizures
(has vagal nerve stimulator) and quadriplegia, has recurrent aspirations post PEG tube placement. Chest x-ray was obtained which showed moderate pulmonary edema vs bilateral diffuse pneumonia. The patient has a chronic right-sided lower and upper
extremity edema and peripheral right lower extremity ultrasound was not significant for deep venous thrombosis. The patient has been on PEG tube feeding and has chronic constipation, her abdominal x-ray was not significant for bowel obstruction.
Additionally the patient has a past medical history of ovarian cancer, chronic hypotension. Per chart review, the patient was recently hospitalized in October 2024 due UTI and PEG tube malfunction.
Past Medical History
Past Medical History: Cancer (History of ovarian cancer) and Other (Cerebral palsy, seizures, quadriplegia, right lower and upper extremity edema, chronic constipation, chronic hypotension, recurrent aspiration pneumonia, recent acute liver injury
of unknown etiology (possibly shock liver), chronic dysphagia status post PEG,)
Past Surgical History: Other
Social History
Tobacco: Non-smoker
Alcohol: None
Drug: None
Personal: Single
Living: With Family
Employment: Disabled
Family History
Family History: Reviewed & Not Pertinent
Allergies / Home Medications
Allergies
Allergy/AdvReac Type Severity Reaction Status Date / Time
brompheniramine Allergy hyper Verified 12/20/24 01:29
[From Dimetapp Cold-Allergy
(PE)]
cephalexin [From Keflex] Allergy Unknown Verified 12/20/24 01:
chloral hydrate Allergy hyper Verified 12/20/24 01:29
diphenhydramine Allergy hyper Verified 12/20/24 01:
[From Benadryl]
latex Allergy Swelling Verified 12/20/24 01:
levofloxacin Allergy Unknown Verified 12/20/24 01:
phenobarbital Allergy hyper Verified 12/20/24 01:29
phenylephrine Allergy hyper Verified 12/20/24 01:
[From Dimetapp Cold-Allergy
(PE)]
phenytoin [From Dilantin] Allergy Rash Verified 12/20/24 01:
Sulfa (Sulfonamide Allergy Hives Verified 12/20/24 01:
Antibiotics)
topiramate [From Topamax] Allergy Rash Verified 12/20/24 01:
Home Medications
�Medication �Instructions �Recorded �Confirmed �Last Taken �Type
fluticasone propionate 50 2 spray intranasal HS Allergies 03/17/24 12/20/24 03/23/24 History
mcg/actuation nasal
spray,suspension
clobazam 10 mg tablet 10 mg feeding tube BID #60 tabs 04/21/24 12/20/24 Unknown Rx
oxcarbazepine 300 mg tablet 600 mg (2 x 300 mg) feeding tube 04/21/24 12/20/24 Unknown Rx
BID #120 tabs
Probiotic 1 cap feeding tube DAILY 06/12/24 12/20/24 Unknown History
ascorbic acid (vitamin C) 500 mg 500 mg feeding tube HS Supplement 06/12/24 12/20/24 Unknown History
tablet (Vitamin C)
montelukast 10 mg tablet 10 mg feeding tube DAILY 06/12/24 12/20/24 Unknown History
Lung/Breathing Issues
midodrine 5 mg tablet 15 mg (3 x 5 mg) feeding tube TID 10/27/24 12/20/24 Unknown Rx
@ 0800,1200,1700 #90 tabs
Zyrtec 10 mg feeding tube DAILY 12/20/24 12/20/24 Unknown History
nitrofurantoin macrocrystal 50 mg 50 mg PO DAILY 12/20/24 12/20/24 Unknown History
capsule
Review of Systems
-
Unable to Obtain full review of systems at this time due to: Patient Non Verbal
History Source: Family
Constitutional: Fever
EENT: Other (Dysphagia)
Respiratory: Trouble Breathing
Cardiac: No Symptoms
Abdomen/GI: No Symptoms
: No Symptoms
Musculoskeletal: Edema
Skin: No Symptoms
Neuro: Other (See HPI)
Endocrine: No Symptoms
Hematologic/Lymphatic: No Symptoms
Vitals / Labs / Diagnostic Testing
Vital Signs
Temp Pulse Resp BP Pulse Ox
96.8 F L 86 30 135/44 93
12/20/24 11:45 12/20/24 12:30 12/20/24 12:30 12/20/24 12:30 12/20/24 12:30
Lab Data
12/20/24 05:09
12/20/24 01:06
Microbiology
12/19/24 23:23 Nasal Swab Influenza Types A & B (SAMARA) - Final
Negative for Influenza A & B, NAAT
Negative results must be combined with clinical observations
and patient history.
Nucleic Acid Amplification test (NAAT)performed on the
[employer] platform.
Diagnostic Testing:
Physical Exam
-
HEENT: Normocephalic and Anicteric
Cardiovascular: S1/S2 and Other (Tachycardia)
Respiratory: Rhonchi
GI: Soft, Non Distended and Non Tender
Neurology: Other (Patient barely opens her eyes with physical and verbal stimulus)
Skin: Warm
General: Other (Appears chronically ill)
Assessment
-
Assessment
Impression: Ms Orantes is an known non-verbal 48-year-old female with a history of cerebral palsy complicated functional quadriplegia and seizure who presented to ER for an evaluation of respiratory distress. She was placed on BiPAP due hypoxia and
was started on vasopressors for being hypotensive at ER. Additionally family noted a fever to 100.3 at home the day before ER admission. Patient's family reported good compliance with tube feeding without any abdominal distention and no obvious
regurgitation. Her chest x-ray showed diffuse pneumonia and the patient was consulted to the ICU team for further management/close follow-up. The patient tolerated to be weaned off from BiPAP today and switched to high flow nasal cannula
supplemental oxygen to 10 L/min maintaining oxygen saturation to 93.
Problems
Septic shock likely due to pneumonia
Cerebral palsy complicated quadriplegia and seizures
Recent hospitalization for UTI
Tube feeding
Chronic right upper plus lower extremity edema
Transaminitis
Plan
#Septic shock
-Likely secondary to pneumonia possible due aspiration
-Chest x-ray shows diffuse pneumonia versus pulmonary edema-has a valgus stimulator on chest x-ray
-WBC 21.1, no fever spikes-1 episode of jnqqpdwoyya-[id number]
-Lactic acid :N, UA is not significant for UTI
-Blood culture pending, sputum culture is planning to obtain
-influenza and covid negative; strep pneumo/legionella urine ags pending
-Continue Zosyn, add doxycycline, stop vancomycin by ID recc
-Continue IV fluids
-Continue midodrine through tube
-Planning to wean from vasopressors while maintaining MAP>71-fhzeun-vr BP
#Cerebral palsy complicated quadriplegia and seizures
-Continue home medication for seizure (ox carbamazepine and clobazam)
-PRN lorazepam if needed
#Tube feeding
-Continue home regimen PEG tube feeding ( 16 hrs per day, 45ml/hr with 50ml/hr water flushes)
-Abdominal x-ray was not significant for bowel obstruction
-Consulted to nutrition team
#Chronic right upper and lower extremity edema
-Right lower extremity venous Doppler: No evidence of DVT
#Transaminitis
-AST 81, ALT 48: Trended down comparing to her recent hospitalization levels
-Total bilirubin 1.6, direct bilirubin 1.0-trended down comparing her recent hospitalization levels
-The patient had elevated LFT levels on previous admission and was evaluated by GI
-Per chart review on 10/31/2024' (1.Elevated transaminases most likely related to shock liver Transaminases are trending down and hopefully bilirubin has peaked and should start to trend down soon. All her other labs were unremarkable. Viral
hepatitis serologies were negative, EDGAR, AMA, ASMA, Anti LKM1 negative, ceruloplasmin normal, alpha-1 antitrypsin was normal, SPEP normal, EBV IgG antibody was positive, early antibody was positive unclear if she probably had mono. may need to
consider liver biopsy if they start to trend up again she did receive a course of N-acetylcysteine also. LFTS are trending down)
-Follow-up for now
#DVT prophylaxis
-Lovenox sq
[2024-12-20] MEDS: TRILEPTAL 600 MG TUBE ×2 (13:18→21:14)
--- NOTE | 2024-12-20 14:51 | W.PN.UPDATE ---
Update Note
Progress Note Update
Nonbillable note
Acute hypoxic respiratory failure
Aspiration pneumonia pneumonitis
-Chest x-ray reviewed and bilateral diffuse infiltrate
-Requiring BiPAP support, wean off as possible
-Antibiotics adjusted to Zosyn and doxycycline, ID help appreciated.
Sepsis and septic shock
-Requiring Levophed support, wean off as tolerated
Right lower extremity swelling
-Venous Doppler negative
Status post PEG tube
Stomy site contact dermatitis
-no reported issues at tube site
-Abd xr done and could not confirm location due to lack of contrast, if any clinical concern arises of displacement, will require proper tube study
-TF ordered for now
-Barrier cream for stomy site
--- NOTE | 2024-12-20 16:45 | PTCARENOTE ---
Resting quietly off Bipap. O2 tapered down to 4l/min via NC w/ POx 94-97%. Levophed gtt at 4mcg/min. Turned/repositioned q2hr or more frequently. Pt's father visiting at bedside. No additional changes from previous assessment findings.
[2024-12-20] MEDS: LOVENOX 40 MG SC (18:01)
--- NOTE | 2024-12-20 21:00 | RESPNOTE ---
NT suction performed with 14fr cath. Pt tolerated procedure well. Suctioned moderate amount thick pale white secretions.
[2024-12-20] MEDS: TYLENOL ORAL SOLUTION 650 MG TUBE (23:15)
[2024-12-21] VITALS (53 sets, daily range): BP systolic 71–154; BP diastolic 44–104; BMI 28.8
[2024-12-21] MEDS: VIBRAMYCIN 100 MG TUBE ×3 (00:35→23:52)
--- NOTE | 2024-12-21 01:51 | PTCARENOTE ---
Received Pt from day RN. Pt on 6Lnc spo2 94%. Pt began to have coughing/ baring down episode, reportedly happened on day shift also but recovered. Pt spo2 dropping to low 80's, suction attempted, NRB applied and RT called to bed side. Pt responded
to midflow at 15L and nasopharyngeal suctioning. PT maintaining >98% on 15L midflow. Assessment care and vitals as charted.
[2024-12-21 05:04] LABS: Hematocrit 34.5 % (37.0-47.0); Hemoglobin 11.7 g/dL (12.0-16.0); Mean Corp Hgb Conc. 33.9 g/dL (33.0-37.0); Mean Corpuscular Hgb 32.7 pg (27.0-31.0); Mean Corpuscular Volume 96.4 fL (81.0-99.0); Platelet Count 235 10^3/uL (130-400); Red Blood Cell Count 3.58 10^6/uL (4.20-5.40); Red Cell Dist. Width 14.9 % (11.5-14.5); White Blood Cell Count 15.4 10^3/uL (4.8-10.8)
--- NOTE | 2024-12-21 05:30 | RESPNOTE ---
NT suctioning performed. Pt tolerated well
[2024-12-21 05:31] LABS: Blood Urea Nitrogen 15 mg/dl (7-17); Calcium 7.7 mg/dl (8.4-10.2); Carbon Dioxide 26 mmol/L (22-30); Chloride 104 mmol/L (98-107); Estimated Creatinine Clearance 89 ml/min; Glucose 140 mg/dl (70-99); Potassium 3.3 mmol/L (3.5-5.1); Sodium 135 mmol/L (135-145); eGFR > 60.00
[2024-12-21] MEDS: TYLENOL ORAL SOLUTION 650 MG TUBE (05:54)
[2024-12-21] MEDS: ZOSYN 50 IV ×4 (05:54→23:49)
[2024-12-21] MEDS: LEVOPHED 250 IV (05:54)
--- NOTE | 2024-12-21 07:42 | W.PN.INTV ---
Today's Communication / Plan
Recommendations
-Planning to transfer to IMU this a.m./will follow-up for pulmonary problems
-Follow up cultures
-Continue Zosyn and Doxycycline
-Try to wean off from Levophed while maintaining MAP>65
-Try to wean off from BIPAP
-Continue Tube feeding
Assessment
-
Assessment
Impression: Ms Orantes is an known non-verbal 48-year-old female with a history of cerebral palsy complicated functional quadriplegia and seizure who presented to ER for an evaluation of respiratory distress. She was placed on BiPAP due hypoxia and
was started on vasopressors for being hypotensive at ER. Additionally family noted a fever to 100.3 at home the day before ER admission. Patient's family reported good compliance with tube feeding without any abdominal distention and no obvious
regurgitation. Her chest x-ray showed diffuse pneumonia and the patient was consulted to the ICU team for further management/close follow-up.
The patient needed to be placed on BiPAP as needed and tolerated being on high flow nasal cannula supplemental oxygen to 10 L/min maintaining oxygen saturation to 93. The patient is planning to be transferred to IMU this a.m. and will be follow-up
for pulmonary problems.
Problems
Septic shock likely due to pneumonia
Cerebral palsy complicated quadriplegia and seizures
Recent hospitalization for UTI
Tube feeding
Chronic right upper plus lower extremity edema
Transaminitis
Plan
#Septic shock
-Likely secondary to pneumonia possible due aspiration
-Chest x-ray shows diffuse pneumonia versus pulmonary edema-has a valgus stimulator on chest x-ray
-WBC decreased to 15.4 from 21.1, no fever spikes-1 episode of lkbselsjyyr-jyhwnj-wy
-Lactic acid :N, UA is suspicious for UTI-urine culture pending
-Blood culture pending, sputum culture is planning to obtain
-influenza and covid negative; strep pneumo/legionella urine ags negative
-Continue Zosyn, add doxycycline, by ID
-Stopped IV fluids-continue tube feeding
-Continue midodrine through tube
-Planning to wean from vasopressors-Levophed- while maintaining MAP>08-qnkvaz-lc BP
#Cerebral palsy complicated quadriplegia and seizures
-Continue home medication for seizure (ox carbamazepine and clobazam)
-PRN lorazepam if needed
#Tube feeding
-Continue home regimen PEG tube feeding ( 16 hrs per day, 45ml/hr with 50ml/hr water flushes)
-Abdominal x-ray was not significant for bowel obstruction
-Appreciated nutrition team assessment
#Chronic right upper and lower extremity edema
-Right lower extremity venous Doppler: No evidence of DVT
#Transaminitis
-AST 81, ALT 48 : Trended down comparing to her recent hospitalization levels
-Total bilirubin 1.6, direct bilirubin 1.0-trended down comparing her recent hospitalization levels
-The patient had elevated LFT levels on previous admission and was evaluated by GI
-Per chart review on 10/31/2024' (1.Elevated transaminases most likely related to shock liver Transaminases are trending down and hopefully bilirubin has peaked and should start to trend down soon. All her other labs were unremarkable. Viral
hepatitis serologies were negative, EDGAR, AMA, ASMA, Anti LKM1 negative, ceruloplasmin normal, alpha-1 antitrypsin was normal, SPEP normal, EBV IgG antibody was positive, early antibody was positive unclear if she probably had mono. may need to
consider liver biopsy if they start to trend up again she did receive a course of N-acetylcysteine also. LFTS are trending down)
-Follow-up for now
#DVT prophylaxis
-Lovenox sq
Subjective Dataa
Subjective Data
Date of Service:
Date of Service: December 21, 2024
Chief Complaint: Pulmonary Follow Up
Subjective:
The patient was transferred to IMU. Message Broker Developer team will follow-up the patient for pneumonia.
Review of Systems
General: Unobtainable - Pat Unresp
HEENT: Dysphagia
GI: Tube Feeding
Neuro: Weakness
Genitourinary: Ron
Objective Data
Data Reviewed
Vital Signs / I&O / Oxygen:
Vital Signs
Temp Pulse Resp BP Pulse Ox
99.7 F 71 23 103/67 97
12/21/24 00:30 12/21/24 07:15 12/21/24 07:15 12/21/24 07:15 12/21/24 07:15
Intake and Output
12/20/24 12/21/24 12/22/24
06:59 06:59 06:59
Intake Total 3301.1 / 3301.1
Output Total 825 / 825
Balance 2476.1 / 2476.1
SaO2 97
Nasal Cannula flow liters per 6
minute
Physical Exam
General: Other (See HPI)
HEENT: Normocephalic and Anicteric
Cardiovascular: S1-S2 and Regular Rhythm
Respiratory: Clear and Other (Decreased breath sounds)
GI: Soft, Non Distended and Non Tender
Neurology: Non Verbal and Other (Cerebral palsy-nonverbal at baseline)
Skin: Warm and Other (Likely contact dermatitis around PEG tube)
Labs/Micro/Reports
Lab Data
12/21/24 04:51
12/21/24 04:51
Microbiology
12/20/24 01:22 Blood/Venous Blood Culture - Preliminary
No Growth in 24 hours- Final report to follow
12/20/24 01:06 Blood/Venous Blood Culture - Preliminary
No Growth in 24 hours- Final report to follow
12/20/24 13:20 Nose Nasal Screen MRSA (PCR) - Final
MRSA not detected - performed by PCR methodology.
12/20/24 13:20 Urine Legionella Urinary Antigen - Final
Negative for Legionella pneumophila Serogroup 1 antigen.
A negative result does not rule out the possiblity of
Legionella infection due to other serogroups or species of
Legionella. Clinical correlation is recommended.
12/20/24 13:20 Urine Streptococcus pneumoniae Antigen (M - Final
Negative for Streptococcus pneumoniae antigen.
A negative result does not exclude infection with
Streptococcus pneumoniae. Clinical correlation is
recommended.
12/19/24 23:23 Nasal Swab Influenza Types A & B (SAMARA) - Final
Negative for Influenza A & B, NAAT
Negative results must be combined with clinical observations
and patient history.
Nucleic Acid Amplification test (NAAT)performed on the
[employer] platform.
[2024-12-21] MEDS: LR 1000 IV (08:57)
[2024-12-21] MEDS: ONFI 10 MG TUBE ×2 (08:57→20:09)
[2024-12-21] MEDS: TRILEPTAL 600 MG TUBE ×2 (08:57→20:09)
[2024-12-21] MEDS: SINGULAIR 10 MG TUBE (08:57)
[2024-12-21] MEDS: ProAmatine 15 MG TUBE ×3 (08:57→17:12)
--- NOTE | 2024-12-21 09:28 | W.PN.ID1 ---
Date of Service
Date of Service: December 21, 2024
Today's Communication
- can continue zosyn for now given recent Pseudomonal colonization
- c/w doxycycline
follow clinically
Assessment / Plan
Probable Multifocal Pneumonia - CAP
Hypoxemic resp failure
Reported Allergy vs intolerance of cephalexin, levofloxacin, sulfa (hives)
PEG
Aphasic at baseline
Chronic hypotension on midodrine 15 mg TID at baseline
H/o colonization with pseudomonas
- sputum culture if able to obtain
- blood cultures x2 in progress
- influenza and covid negative; strep pneumo/legionella urine ags negative
- can continue zosyn for now given recent Pseudomonal colonization
- c/w doxycycline
follow clinically
Chief Complaint
-: Pneumonia
Subjective / Review of Systems
afebrile
norepi dose declining
declining wbc count
Vital Signs / Physical Exam
Vital Signs
Vital Signs
Temp Pulse Resp BP Pulse Ox
97.7 F 74 23 110/74 96
12/21/24 08:25 12/21/24 08:57 12/21/24 07:15 12/21/24 08:57 12/21/24 08:40
Physical Exam
Constitutional: Acutely Ill and Chronically Ill
Cardiovascular: Regular Rate and S1/S2; Negative Murmur or Rub
Pulmonary: Clear and Symmetric; Negative Wheezes or Rales
Gastrointestinal: Soft, Non Tender, Non Distended and Normal Bowel Sounds
Skin: Warm and Dry; Negative Rash or Jaundice
Objective Data
Lab Data
Lab Results
12/21/24 04:51
12/21/24 04:51
Estimated Creat Clear 89 ml/min 12/21/24 04:51
Lactic Acid Cancelled 12/20/24 03:15
Total Bilirubin 1.6 mg/dl (0.2-1.3) H 12/20/24 05:09
AST 81 U/L (14-36) H 12/20/24 05:09
ALT 48 U/L (0-35) H 12/20/24 05:09
Alkaline Phosphatase 205 U/L (38-126) H 12/20/24 05:09
Most recent labs reviewed.
Micro Results:
12/19/24 23:50 Urine Culture - Final
Urine NO GROWTH
12/20/24 01:22 Blood Culture - Preliminary
Blood/Venous No Growth in 24 hours- Final report to follow
12/20/24 01:06 Blood Culture - Preliminary
Blood/Venous No Growth in 24 hours- Final report to follow
12/20/24 13:20 Nasal Screen MRSA (PCR) - Final
Nose MRSA not detected - performed by PCR methodology.
12/20/24 13:20 Legionella Urinary Antigen - Final
Urine Negative for Legionella pneumophila Serogroup 1 antigen.
A negative result does not rule out the possiblity of
Legionella infection due to other serogroups or species of
Legionella. Clinical correlation is recommended.
Streptococcus pneumoniae Antigen (M - Final
Negative for Streptococcus pneumoniae antigen.
A negative result does not exclude infection with
Streptococcus pneumoniae. Clinical correlation is
recommended.
12/19/24 23:23 Influenza Types A & B (SAMARA) - Final
Nasal Swab Negative for Influenza A & B, NAAT
Negative results must be combined with clinical observations
and patient history.
Nucleic Acid Amplification test (NAAT)performed on the
[employer] platform.
--- NOTE | 2024-12-21 13:01 | PTCARENOTE ---
Received pt. @ change of shift; assessment per charting- see flow sheet. Levo gtt tapered to off this AM- see flow sheet. Admin standing midodrine- see MAR. R arm midline inserted by VAT. Dr. Choi aware and further order received to d/c L fem TL.
L fem TL d/c'd by VAT; dressing w small amt of sang drainage, remains intact. Pt. repositioned per protocol. Safe environment maintained.
--- NOTE | 2024-12-21 14:32 | W.PN.HOSP.TC ---
Today's Communication/Plan
-
continue abx
wean off pressors as possible
Assessment / Plan
Assessment / Plan
Acute hypoxic respiratory failure
Aspiration pneumonia pneumonitis
-Chest x-ray reviewed and bilateral diffuse infiltrate
-off of bipap on o2 throuhg NC
-Antibiotics adjusted to Zosyn and doxycycline, ID help appreciated.
Sepsis and septic shock
-levophed dose has been decreasing
Right lower extremity swelling
-Venous Doppler negative
Status post PEG tube
Stomy site contact dermatitis
-no reported issues at tube site
-Abd xr done and could not confirm location due to lack of contrast, if any clinical concern arises of displacement, will require proper tube study
-TF ordered for now
-Barrier cream for stomy site
Chronic hypotension
Seizure disorder
Cerebral palsy with functional dysplasia
Chronic dysphagia status post PEG tube
History of ovarian cancer status post surgery
Full code
Total time spent : 53 mins
Anticipated Discharge: > 48 hours
Subjective/Interval History
-
Date of Service: December 21, 2024
resting comfortably in bed
Levophed requirement down
no other reported problems
Objective Data
-
Labs:
Laboratory Results
12/21/24
04:51
WBC 15.4 H
Hgb 11.7 L
Hct 34.5 L
Plt Count 235
Sodium 135
Potassium 3.3 L
Chloride 104
Carbon Dioxide 26
BUN 15
Creatinine 0.5 L
Glucose 140 H
Calcium 7.7 L
Vital Signs:
Vital Signs
Temp Pulse Resp BP Pulse Ox
98.4 F 73 19 112/73 92
12/21/24 12:07 12/21/24 12:00 12/21/24 12:00 12/21/24 11:30 12/21/24 12:00
I&O
12/20/24 12/21/24 12/22/24
06:59 06:59 06:59
Intake Total 3301.1 / 3301.1 22.5 / 22.5
Output Total 825 / 825 300 / 300
Balance 2476.1 / 2476.1 -277.5 / -277.5
Review of Systems
-
Respiratory: Reports No Symptoms
Cardiac: Reports No Symptoms
Abdomen/GI: Reports No Symptoms
Physical Exam
-
General: No Apparent Distress and Comfortable
HEENT: Normocephalic and Atraumatic
Cardiac: Regular Rhythm and S1/S2; Negative Murmur
GI: Soft, Nontender, Nondistended and Peg Tube
Musculoskeletal: Edema, Right Lower Extrem and Edema, Left Lower Extrem
Neuro: Awake
Psych: Calm
--- NOTE | 2024-12-21 16:50 | CM ---
Met with pt and her parents at bedside
Father reports pt and parents live in a ranch style home with ramp access
Pt is total care at baseline, receives tube feedings via PEG, bed/wheel chair bound
DME - ramp, wheel chair, brijesh lift, home O2, shower chair, fedding supplies/pump, suction set-up
Current with [facility]
PCP - Timbo Courtney
Pharm - [facility]
CM will follow for discharge needs
Plan -TBD based on needs - CM will follow
[2024-12-21] MEDS: LOVENOX 40 MG SC (17:12)
[2024-12-21] MEDS: SENNA SYRUP 8.8 MG PO (17:50)
[2024-12-21] MEDS: MIRALAX 17 GRAMS TUBE (17:50)
--- NOTE | 2024-12-21 19:45 | PTCARENOTE ---
Patient received lying in bed, awake, alert and oriented. She is without apparent signs of distress or discomfort. She denies CP, SOB, palpitations. Pulses palpable, no edema. S1S2 regular, SR on CM with 1st degree AVB. BBS clear. Heparin gtt
infusing at 1500Units/hr. Tolerating po intake. No N/V.
--- NOTE | 2024-12-21 20:00 | PTCARENOTE ---
Patient received lying in bed awake and alert. She is moaning with each exhalation. Her Mother Tanisha is at the bedside. She states that her daughter has not had a BM in 3 days and she usually moans like this when she needs to have a BM or when she is
uncomfortable. Patient has received Miralax and Senokot syrup today. No BM yet. Ragini Watson APN notified and suppository requested, order received. Patient is nonverbal at baseline. No spontaneous movement noted of BUEs. BLEs very stiff.
Respirations non labored but tachypneic. RUL rhonchi, TREMAYNE clear, Bilateral bases diminished. Oxygen increased to 15L Midflow. Sat 86-88% on 13L. Patient has generalized anasarca 2+ with 2+ edema noted of bilateral hands and feet. S1S2 regular. SR on
CM with 1st degree AVB. Abdomen soft. PEG site with dressing CDI. Jevity 1.5 Tube feeding infusing at 45cc/hr with 25cc/hr H2O flush, tolerating well with 15cc residual. Mouth and lips dry, oral care rendered, lip care. Dulcolax suppository given as
ordered. Right arm Midline intact with KVO NS. Left AC SL, flushes easily.
[2024-12-21] MEDS: DULCOLAX 10 MG RECTAL (20:15)
--- NOTE | 2024-12-21 22:20 | PTCARENOTE ---
PTT therapeutic at 90.2. No change in Heparin gtt rate, kept at 1500Units/hr. PTT for 329
--- NOTE | 2024-12-21 22:30 | PTCARENOTE ---
Patient incontinent of large soft BM. Complete cares rendered, Ron care, CHG cloth bath. Zinc oxide perirectally. Complete linen change. Back rub.
[2024-12-22] VITALS (53 sets, daily range): BP systolic 47–125; BP diastolic 17–101; PULSE 2–88; BMI 29.3
[2024-12-22] MEDS: ProAmatine 5 MG TUBE (05:09)
[2024-12-22] MEDS: ZOSYN 50 IV ×4 (05:15→23:38)
[2024-12-22 05:30] LABS: Hematocrit 36.9 % (37.0-47.0); Hemoglobin 12.4 g/dL (12.0-16.0); Mean Corp Hgb Conc. 33.6 g/dL (33.0-37.0); Mean Corpuscular Hgb 32.5 pg (27.0-31.0); Mean Corpuscular Volume 96.9 fL (81.0-99.0); Mean Platelet Volume 10.8 fL (7.4-10.4); Platelet Count 215 10^3/uL (130-400); Red Blood Cell Count 3.81 10^6/uL (4.20-5.40); Red Cell Dist. Width 15.1 % (11.5-14.5); White Blood Cell Count 18.1 10^3/uL (4.8-10.8)
[2024-12-22 06:11] LABS: Blood Urea Nitrogen 13 mg/dl (7-17); Calcium 6.3 mg/dl (8.4-10.2); Carbon Dioxide 24 mmol/L (22-30); Chloride 109 mmol/L (98-107); Estimated Creatinine Clearance 92 ml/min; Glucose 108 mg/dl (70-99); Sodium 137 mmol/L (135-145); eGFR > 60.00
--- NOTE | 2024-12-22 06:20 | PTCARENOTE ---
Am bloodwork reviewed. K+ 3.0. Calcium 6.3. UO 250 for the night. Ragini Watson APN notified. New orders received for KCL and Calcium Gluconate.
[2024-12-22] MEDS: KCL ELIXIR 40 MEQ TUBE (06:28)
[2024-12-22] MEDS: CALCIUM GLUCONATE 100 IV (06:55)
--- NOTE | 2024-12-22 07:24 | PTCARENOTE ---
Report given verbally to AMI Brandt. Questions answered.
[2024-12-22] MEDS: LEVOPHED 250 IV ×2 (08:00→16:39)
--- NOTE | 2024-12-22 08:00 | PTCARENOTE ---
Pt received from coding assistant RN. Pt moaning in bed, with HR in the 110's and BP in the low 80's. MD made aware and norepinephrine was restarted. She was maintained on 4 mcgs for 2 hours before her BP's started dropping again. Pt to be upgraded to
ICU status. Place A line. Will give a bag of albumin and repeat labs at 1300. Reported off to following RN.
[2024-12-22] MEDS: SINGULAIR 10 MG TUBE (08:16)
[2024-12-22] MEDS: MIRALAX 17 GRAMS TUBE (08:16)
[2024-12-22] MEDS: ProAmatine 15 MG TUBE ×3 (08:16→16:24)
[2024-12-22] MEDS: ONFI 10 MG TUBE ×2 (08:16→19:51)
[2024-12-22] MEDS: TRILEPTAL 600 MG TUBE ×2 (08:16→19:51)
--- NOTE | 2024-12-22 09:26 | WOUNDNOTE ---
FEEDING TUBE SITE
--- NOTE | 2024-12-22 09:26 | WOUNDNOTE ---
FEEDING TUBE SITE
--- NOTE | 2024-12-22 09:27 | WOUNDNOTE ---
[facility] RN note: Patient admitted with sepsis. Patient lives with her parents. She has a hospital bed with an air mattress at home.
See H&P for complete history.
PMH: CP, non verbal, seizures, quadriplegia, constipation, LE edema, HOTN, acute liver injury, chronic dysphagia.
Wound Location and type/assessment: Patient admitted with: MASD with possible yeast rash around feeding tube site d/t moisture, intermittent tube leakage. Feeding tube at #2 at skin level and #4 at outer part of bumper. Sacral crease dull red and
intact. Mild perianal MASD. Heels blanchable mild red and intact.
Appetite: NPO, tube feeding.
Pressure redistribution devices in place: Centrella Max air bed. Patient's knees bent. Patient immobile.
Plan: Skin cleansed around feeding tube, Calazime applied. Will order miconazole powder. Dr. Choi was in and evaluated feeding tube site. Hospitalist to consider GI consult. Hospitalist approved local care. Patient turned to L semi side lying
position with help from AMI Nicolas. Heels off bed with air chair cushion. Pillow between knees. Updated PCT Mary and left a sacral shaped silicone border foam at bedside. R heel protective foam dressing changed. Mother at bedside.
Care plan to be updated and will follow as needed.
--- NOTE | 2024-12-22 09:30 | WOUNDNOTE ---
[facility] RN note: Patient admitted with sepsis. Patient lives with her parents. She has a hospital bed with an air mattress at home.
See H&P for complete history.
PMH: CP, non verbal, seizures, quadriplegia, constipation, LE edema, HOTN, acute liver injury, chronic dysphagia.
Wound Location and type/assessment: Patient admitted with: MASD with possible yeast rash around feeding tube site d/t moisture, intermittent tube leakage. Feeding tube at #2 at skin level and #4 at outer part of bumper.
MASD breast folds. Jaw on R underside scabbed abrasion (mother confirmed POA). Sacral crease dull red and intact. Mild perianal MASD. Heels blanchable mild red and intact.
Appetite: NPO, tube feeding.
Pressure redistribution devices in place: Centrea Max air bed. Patient's knees bent. Patient immobile.
Plan: Skin cleansed around feeding tube, Calazime applied. Will order miconazole powder. Dr. Choi was in and evaluated feeding tube site. Hospitalist to consider GI consult. Hospitalist approved local care. Patient turned to L semi side lying
position with help from AMI Nicolas. Heels off bed with air chair cushion. Pillow between knees. Updated PCT Mary and left a sacral shaped silicone border foam at bedside. R heel protective foam dressing changed. Silicone border foam applied to R
jaw abrasion. Mother at bedside.
Care plan to be updated and will follow as needed.
--- NOTE | 2024-12-22 10:02 | W.PN.ID1 ---
Date of Service
Date of Service: December 22, 2024
Today's Communication
- can continue zosyn for now given recent Pseudomonal colonization
- c/w doxycycline
Assessment / Plan
Probable Multifocal Pneumonia - CAP
Hypoxemic resp failure
Reported Allergy vs intolerance of cephalexin, levofloxacin, sulfa (hives)
PEG
Aphasic at baseline
Chronic hypotension on midodrine 15 mg TID at baseline
H/o colonization with pseudomonas
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
- sputum culture if able to obtain
- blood cultures x2 in progress no growth to date
- influenza and covid negative; strep pneumo/legionella urine ags negative
- can continue zosyn for now given recent Pseudomonal colonization
- c/w doxycycline
- QTc 493
follow clinically
Chief Complaint
-: Pneumonia
Subjective / Review of Systems
remains afebrile
remains on norepi at 4 mcg/min was able to be weaned off for a time yesterday
now on midflow NC
Vital Signs / Physical Exam
Vital Signs
Vital Signs
Temp Pulse Resp BP Pulse Ox
99.1 F 110 33 81/30 95
12/22/24 07:40 12/22/24 08:08 12/22/24 08:08 12/22/24 08:16 12/22/24 08:08
Physical Exam
Constitutional: Acutely Ill and Chronically Ill
Cardiovascular: Regular Rate and S1/S2; Negative Murmur or Rub
Pulmonary: Symmetric, Coarse and Non Labored; Negative Wheezes or Rales
Gastrointestinal: Soft, Non Tender, Non Distended and Normal Bowel Sounds
Skin: Warm and Dry; Negative Rash or Jaundice
Objective Data
Lab Data
Lab Results
12/22/24 05:19
12/22/24 05:19
Estimated Creat Clear 92 ml/min 12/22/24 05:19
Lactic Acid Cancelled 12/20/24 03:15
Total Bilirubin 1.6 mg/dl (0.2-1.3) H 12/20/24 05:09
AST 81 U/L (14-36) H 12/20/24 05:09
ALT 48 U/L (0-35) H 12/20/24 05:09
Alkaline Phosphatase 205 U/L (38-126) H 12/20/24 05:09
Most recent labs reviewed.
Micro Results:
12/20/24 01:22 Blood Culture - Preliminary
Blood/Venous No Growth in 48 hours- Final report to follow
12/20/24 01:06 Blood Culture - Preliminary
Blood/Venous No Growth in 48 hours- Final report to follow
12/19/24 23:50 Urine Culture - Final
Urine NO GROWTH
12/20/24 13:20 Nasal Screen MRSA (PCR) - Final
Nose MRSA not detected - performed by PCR methodology.
12/20/24 13:20 Legionella Urinary Antigen - Final
Urine Negative for Legionella pneumophila Serogroup 1 antigen.
A negative result does not rule out the possiblity of
Legionella infection due to other serogroups or species of
Legionella. Clinical correlation is recommended.
Streptococcus pneumoniae Antigen (M - Final
Negative for Streptococcus pneumoniae antigen.
A negative result does not exclude infection with
Streptococcus pneumoniae. Clinical correlation is
recommended.
12/19/24 23:23 Influenza Types A & B (SAMARA) - Final
Nasal Swab Negative for Influenza A & B, NAAT
Negative results must be combined with clinical observations
and patient history.
Nucleic Acid Amplification test (NAAT)performed on the
[employer] platform.
--- NOTE | 2024-12-22 10:18 | W.PN.INTV ---
Today's Communication / Plan
Recommendations
-Follow-up chest x-ray
-BiPAP as needed/planning wean off
-Follow-up blood culture
-Continue Levophed for now-planning to wean off
-Continue empiric antibiotics
-Albumin was ordered
-Follow-up CMP and magnesium
-Follow-up in ICU
Assessment
-
Assessment
Impression: Ms Orantes is an known non-verbal 48-year-old female with a history of cerebral palsy complicated functional quadriplegia and seizure who presented to ER for an evaluation of respiratory distress. She was placed on BiPAP due hypoxia and
was started on vasopressors for being hypotensive at ER. Additionally family noted a fever to 100.3 at home the day before ER admission. Patient's family reported good compliance with tube feeding without any abdominal distention and no obvious
regurgitation. Her chest x-ray showed diffuse pneumonia and the patient was consulted to the ICU team for further management/close follow-up.
The patient needed to be placed on BiPAP as needed and tolerated being on high flow nasal cannula supplemental oxygen to 10 L/min maintaining oxygen saturation to 93 for most part of the staying at ICU.The patient`s condition changing on a daily
basis. She is still not hemodynamically stable. It was planned to place the patient on BiPAP as needed and continue vasopressors for now. Patient is planned to move back to ICU.
Problems
Septic shock likely due to pneumonia
Hypoalbuminemia
Hypokalemia
Cerebral palsy complicated quadriplegia and seizures
Recent hospitalization for UTI
Tube feeding
Chronic right upper plus lower extremity edema
Transaminitis
Plan
#Septic shock
-Likely secondary to pneumonia possible due aspiration
-Chest x-ray shows diffuse pneumonia versus pulmonary edema-has a valgus stimulator on chest x-ray--follow-up chest x-ray ordered
-WBC decreased to 18.1 from 21.1, no fever spikes-1 episode of [id number]-dcoruh-rv since last 3 days
-Lactic acid :N, UA is suspicious for UTI-urine culture no growth
-Blood culture 72 H pending-48 hours no growth, sputum culture is planning to obtain
-influenza and covid negative; strep pneumo/legionella urine ags negative
-Continue Zosyn-by ED (given recent pseudomonal colonization)-continue doxycycline through tube
-Stopped IV fluids-continue tube feeding
-Continue midodrine through tube
-Continue Levophed- while maintaining MAP>73-[id number] BP-SBP>90 and plan to wean off
#Hypoalbuminemia
-Albumin level 1.7
-Was given albumin to being hypotensive due to septic shock
-Follow-up order placed for tomorrow morning
#Hypokalemia
-Replaced 40 meq
-Follow-up CMP with Mg level this pm
#Cerebral palsy complicated quadriplegia and seizures
-Continue home medication for seizure (ox carbamazepine and clobazam)
-PRN lorazepam if needed
#Tube feeding
-Continue home regimen PEG tube feeding ( 16 hrs per day, 45ml/hr with 50ml/hr water flushes)
-Abdominal x-ray was not significant for bowel obstruction
-Appreciated nutrition team assessment
#Chronic right upper and lower extremity edema
-Right lower extremity venous Doppler: No evidence of DVT
#Transaminitis
-AST 81, ALT 48 on 12/21- Trended down comparing to her recent hospitalization [id number]
-Total bilirubin 1.6, direct bilirubin 1.0-trended down comparing her recent hospitalization levels
-The patient had elevated LFT levels on previous admission and was evaluated by GI
-Per chart review on 10/31/2024' (1.Elevated transaminases most likely related to shock liver Transaminases are trending down and hopefully bilirubin has peaked and should start to trend down soon. All her other labs were unremarkable. Viral
hepatitis serologies were negative, EDGAR, AMA, ASMA, Anti LKM1 negative, ceruloplasmin normal, alpha-1 antitrypsin was normal, SPEP normal, EBV IgG antibody was positive, early antibody was positive unclear if she probably had mono. may need to
consider liver biopsy if they start to trend up again she did receive a course of N-acetylcysteine also. LFTS are trending down)
-Follow-up for now
#DVT prophylaxis
-Lovenox sq
#CODE STATUS: Full code
Subjective Dataa
Subjective Data
Date of Service:
Date of Service: December 22, 2024
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
Subjective:
Patient is nonverbal at baseline. She still has respiratory distress and was placed on BiPAP this a.m. Repeat chest x-ray was planned
Review of Systems
General: Other (At baseline patient is nonverbal)
HEENT: Dysphagia
Cardiopulmonary: Edema (Right and left extremity chronic edema)
GI: Tube Feeding
Neuro: Weakness
Genitourinary: Ron
Objective Data
Data Reviewed
Vital Signs / I&O / Oxygen:
Vital Signs
Temp Pulse Resp BP Pulse Ox
99.1 F 110 33 81/30 95
12/22/24 07:40 12/22/24 08:08 12/22/24 08:08 12/22/24 08:16 12/22/24 08:08
Intake and Output
12/21/24 12/22/24 12/23/24
06:59 06:59 06:59
Intake Total 3301.1 / 3301.1 1150.0 / 1150.0
Output Total 825 / 825 550 / 550
Balance 2476.1 / 2476.1 600.0 / 600.0
SaO2 95
Nasal Cannula flow liters per 6
minute
Physical Exam
General: Respiratory Distress and Other (See HPI)
HEENT: Normocephalic and Anicteric
Cardiovascular: S1-S2 and Regular Rhythm
Respiratory: Clear and Other (Decreased breath sounds)
GI: Soft, Non Distended, Non Tender and Feeding Tube
Neurology: Non Verbal and Other (Cerebral palsy-nonverbal at baseline)
Skin: Warm, Dry and Other (Likely contact dermatitis around PEG tube)
Labs/Micro/Reports
Lab Data
12/22/24 05:19
12/22/24 05:19
Microbiology
12/20/24 01:22 Blood/Venous Blood Culture - Preliminary
No Growth in 48 hours- Final report to follow
12/20/24 01:06 Blood/Venous Blood Culture - Preliminary
No Growth in 48 hours- Final report to follow
12/19/24 23:50 Urine Urine Culture - Final
NO GROWTH
12/20/24 13:20 Nose Nasal Screen MRSA (PCR) - Final
MRSA not detected - performed by PCR methodology.
12/20/24 13:20 Urine Legionella Urinary Antigen - Final
Negative for Legionella pneumophila Serogroup 1 antigen.
A negative result does not rule out the possiblity of
Legionella infection due to other serogroups or species of
Legionella. Clinical correlation is recommended.
12/20/24 13:20 Urine Streptococcus pneumoniae Antigen (M - Final
Negative for Streptococcus pneumoniae antigen.
A negative result does not exclude infection with
Streptococcus pneumoniae. Clinical correlation is
recommended.
12/19/24 23:23 Nasal Swab Influenza Types A & B (SAMARA) - Final
Negative for Influenza A & B, NAAT
Negative results must be combined with clinical observations
and patient history.
Nucleic Acid Amplification test (NAAT)performed on the
[employer] platform.
[2024-12-22] MEDS: ALBUMIN 5% 250 IV (10:33)
[2024-12-22] MEDS: DESENEX/MITRAZOL/ZEASORB 1 APPLIC TOPICAL ×2 (11:14→19:52)
--- NOTE | 2024-12-22 11:14 | PTCARENOTE ---
patient report received@[id number], assessments per work list. patient moaning, pulse oximeter dropped to 70's on 15 midflow after stat cxr. nonrebreather added. albumin infusing. PUMP ATTENDANT at bedside to attempt arterial line placement. tube feeds per orders.
minimal residual. giles draining missy urine. patient moaning continuously. nonverbal. sinus tachycardia, lungs very diminihsed with coarse breath sounds anteriorly
[2024-12-22 11:23] LABS: Cortisol, Random 17.8 ug/dl
--- NOTE | 2024-12-22 11:33 | W.PN.ANS.LIN ---
Anesthesia IV & A-Line Note
- IV/Arterial Line
Right Radial Arrow 20 (01/16)
IV Line Comments: Uneventful Procedure
A-Line Comments: Sterile technique as per standard protocol, Uneventful procedure, Seldinger technique used, Ultrasound guided insertion, Biopatch applied
[2024-12-22] MEDS: VIBRAMYCIN 100 MG TUBE ×2 (12:44→23:38)
[2024-12-22 12:52] LABS: NT-proBNP 898 pg/ml
[2024-12-22 13:30] LABS: PT 20.2 Sec (11.4-14.6)
[2024-12-22 13:31] LABS: APTT 43.7 Sec (23.4-35.0)
[2024-12-22 14:18] LABS: ALT (SGPT) 31 U/L (0-35); AST (SGOT) 58 U/L (14-36); Alkaline Phosphatase 182 U/L (38-126); Blood Urea Nitrogen 13 mg/dl (7-17); Calcium 8.4 mg/dl (8.4-10.2); Carbon Dioxide 25 mmol/L (22-30); Chloride 101 mmol/L (98-107); Estimated Creatinine Clearance 92 ml/min; Glucose 152 mg/dl (70-99); Magnesium 1.8 mg/dl (1.6-2.3); Potassium 4.2 mmol/L (3.5-5.1); Sodium 134 mmol/L (135-145); Total Bilirubin 1.2 mg/dl (0.2-1.3); eGFR > 60.00
--- NOTE | 2024-12-22 14:31 | W.PN.UPDATE ---
Update Note
Progress Note Update
Unfortunately, patient clinical condition has deteriorated.
Increased work of breathing despite BiPAP therapy, use of, uncomfortable.
Tachypneic.
Accessory respiratory muscles hypotensive in shock-requiring vasopressors increasingly higher dosages.
Father and mother at the bedside. Father states that the mother has early dementia does not recall having a conversation with me earlier.
Discussed with them in detail, intubation is a neck step. At this point given her poor quality of life over time we have decided not to pursue intubation and mechanical ventilation.
Will continue current level of care but will try to make her as comfortable as possible while using BiPAP.
Will add morphine and Ativan as needed.
If patient continues to deteriorate then we will focus on comfort.
-
Additional critical care time: A total of 22 minutes of critical care time was provided for this patient today. This includes management of unstable vital signs, evaluation of the patient at bedside, reviewing the patient's pertinent medical records
including ventilator settings, arterial blood gases, radiographs, microbiology, laboratory evaluations and discussion with primary team, critical care nursing, and respiratory therapy.
--- NOTE | 2024-12-22 14:43 | W.PN.HOSP.TC ---
Today's Communication/Plan
-
see note
Assessment / Plan
Assessment / Plan
Acute hypoxic respiratory failure
Aspiration pneumonia pneumonitis
-Chest x-ray reviewed and bilateral diffuse infiltrate
-Antibiotics adjusted to Zosyn and doxycycline, ID help appreciated.
-Pulmonology contacted and patient pulmonary status has declined
-patient required to be started on bipap agian
-Repeat chest x-ray showing worsening pneumonia
Sepsis and septic shock
-Patient again noted to be hypotensive today
-random cortisol 17.8
-Required to be started back on levo drip
-A line placed
Right lower extremity swelling
-Venous Doppler negative
Status post PEG tube
Stomy site contact dermatitis
-no reported issues at tube site
-Abd xr done and could not confirm location due to lack of contrast, if any clinical concern arises of displacement, will require proper tube study
-TF ordered for now
-Barrier cream for stomy site
Hyponatremia
-monitor
Chronic hypotension
Seizure disorder
Cerebral palsy with functional dysplasia
Chronic dysphagia status post PEG tube
History of ovarian cancer status post surgery
DNR/DNI
Client Services Coordinator contacted family and discussed worsening pulmonary status, family agreed for patient to be switched to DNR status.
Total critical care time 38 mins . Total critical care time documented does not include time spent on separately billed procedures or the services of residents, students, nurses or physician assistants. I personally saw and examined the patient. I
have reviewed all diagnostic interpretations and treatment plans as written. I was present for the joshua portions of any procedures performed and the inclusive time noted in any critical care statement. Critical care time includes patient management
by me, time spent at the patients bedside, time to review lab and imaging results, discussing patient care, documentation in the medical record, and time spent with the family or caregiver.
Anticipated Discharge: 24 - 48 hours
Subjective/Interval History
-
Date of Service: December 22, 2024
Patient noted to be hypotensive in the night
started back on levophed
afebrile overnight
Objective Data
-
Labs:
Laboratory Results
12/22/24 12/22/24
05:19 13:04
WBC 18.1 H
Hgb 12.4
Hct 36.9 L
Plt Count 215
PT 20.2 H
INR 1.70
APTT 43.7 H
Sodium 137 134 L
Potassium 3.0 L 4.2 D
Chloride 109 H 101
Carbon Dioxide 24 25
BUN 13 13
Creatinine 0.4 L 0.4 L
Glucose 108 H 152 H
Calcium 6.3 L* 8.4 D
Total Bilirubin 1.2
AST 58 H
ALT 31
Alkaline Phosphatase 182 H
Vital Signs:
Vital Signs
Temp Pulse Resp BP Pulse Ox
99.9 F 97 26 113/100 96
12/22/24 11:59 12/22/24 13:15 12/22/24 13:15 12/22/24 11:15 12/22/24 13:15
I&O
12/21/24 12/22/24 12/23/24
06:59 06:59 06:59
Intake Total 3301.1 / 3301.1 1150.0 / 1150.0 452.5 / 452.5
Output Total 825 / 825 550 / 550
Balance 2476.1 / 2476.1 600.0 / 600.0 452.5 / 452.5
Review of Systems
-
Respiratory: Reports No Symptoms
Cardiac: Reports No Symptoms
Abdomen/GI: Reports No Symptoms
Physical Exam
-
General: No Apparent Distress and Comfortable
HEENT: Atraumatic and Oxygen (NC)
Respiratory: Rhonchi
Cardiac: S1/S2; Negative Murmur
GI: Soft, Nontender, Nondistended and Peg Tube
Musculoskeletal: Edema, Right Lower Extrem and Edema, Left Lower Extrem
Neuro: Awake
Psych: Calm
[2024-12-22] MEDS: MORPHINE SULFATE 1 MG IV ×3 (14:46→21:46)
--- NOTE | 2024-12-22 14:50 | PTCARENOTE ---
Addendum entered by Mary Millan RN 12/22/24 14:53:
arterial line positional, damp waveform. wheel adjuster updated, cuff pressures per work list
Original Note:
patient with continued work of breathing. giles exchanged for non latex#16 turkish without issue. wheel adjuster at bedside to have goals of care discussion with patient parents. code status changed to DNR, stat dose morphine given for respiratory
distress. pastoral care called, message left requesting vist
--- NOTE | 2024-12-22 16:42 | PTCARENOTE ---
Addendum entered by Mary Millan RN 12/22/24 16:50:
pulse oximeter 88, RT notified by tiger text
Original Note:
patient reassessed. increased work of breathing, medicated with morphine per prn order. remains on bipap, family at bedside. repositioned, care provided
[2024-12-22] MEDS: NSS (PRESERVATIVE FREE) 1 ML IV (17:57)
[2024-12-22] MEDS: LOVENOX 40 MG SC (17:57)
[2024-12-22] MEDS: ATIVAN 2 MG IV ×2 (18:00→23:53)
--- NOTE | 2024-12-22 18:12 | PTCARENOTE ---
patient restless after repositioning, medicated with ativan per prn order
--- NOTE | 2024-12-22 19:45 | PTCARENOTE ---
Patient received lying still in bed with eyes closed, tachypneic on BIPAP. BIPAP 14/8 with 15 L oxygen bleed in. S1S2 regular with SR with 1st degree AVB on CM. Abdomen soft. PEG site with dressing CDI. Tube feeding infusing with minimal residual,
tolerating. Jevity 1.5cc at 45cc/hr with H2O flush 25cc/hr. Generalized 2+ Anasarca. BUE 3+ edema, BLE 2 + edema. BLE with heels offloaded, protective foam on heels. Protective border foam on sacrum. Latex free giles catheter patent draining clear
yellow urine. Baseline non verbal. Does not shake her head yes/no to questions asked and does not follow commands--patient baseline. A Line right radial artery, leveled and zeroed prn. Fair wave form, poor square wave. However, when good waveform,
BP correlates with cuff pressure. BUE with midlines, Dressings CDI. Left lung with coarse crackles t/o, RUL with coarse crackles, RML and RLL diminished with crackles. Patient family is at bedside. Emotional support and encouragement provided as
needed. Patient turned every 2 hours. Prn Morphine sulfate and prn Ativan as ordered for anxiety and work of breathing, see MAR.
--- NOTE | 2024-12-22 23:00 | PTCARENOTE ---
Trialing off BIPAP per RT. Patient is moaning and grunting with each exhalation. Occasional weak cough. On 15 L midflow oxygen. Despite repositioning right wrist, Lodge wave form dampened. BP via cuff is stable. Continues on Levophed. Prn Ativan
given for groaning and appearance of restlessness. Maintaining sats. SR 90s on CM. No other significant change in assessment.
[2024-12-23] VITALS (58 sets, daily range): BP systolic 74–132; BP diastolic 35–84; PULSE 2–93; BMI 29.8
[2024-12-23] MEDS: MORPHINE SULFATE 1 MG IV ×6 (01:26→18:43)
--- NOTE | 2024-12-23 01:30 | PTCARENOTE ---
Patient restless. Continues to grunt with expiration, tachypneic. MSO4 given IV per order prn. Notified RT who replaced BIPAP. Repositioned for comfort.
[2024-12-23] MEDS: LEVOPHED 250 IV ×2 (03:25→20:12)
--- NOTE | 2024-12-23 04:00 | PTCARENOTE ---
Addendum entered by Massiel Bradley RN 12/23/24 04:50:
Unable to draw labs from Ceci. Am labs drawn from right Midline.
Original Note:
Complete cares rendered. Complete linen change. Wound care per order. Ron care. Right Ceci has been dampened and is now flat, unable to recover, does not flush easily. Verbal order received by Mey SERRANO to discontinue Ceci. Byron discontinued,
manual pressure held x 5 min. Pressure dressing donned. BBS remain with coarse crackles t/o and with RML and RLL diminished. Tolerating BIPAP but continues to grunt/moan with exhalation.
[2024-12-23 04:39] LABS: Hematocrit 34.2 % (37.0-47.0); Hemoglobin 11.5 g/dL (12.0-16.0); Mean Corp Hgb Conc. 33.6 g/dL (33.0-37.0); Mean Platelet Volume 11.5 fL (7.4-10.4); Platelet Count 251 10^3/uL (130-400); Red Blood Cell Count 3.49 10^6/uL (4.20-5.40); Red Cell Dist. Width 15.2 % (11.5-14.5)
[2024-12-23 05:02] LABS: Blood Urea Nitrogen 12 mg/dl (7-17); Carbon Dioxide 30 mmol/L (22-30); Chloride 102 mmol/L (98-107); Estimated Creatinine Clearance 92 ml/min; Glucose 141 mg/dl (70-99); Potassium 4.2 mmol/L (3.5-5.1); Sodium 135 mmol/L (135-145); eGFR > 60.00
[2024-12-23] MEDS: ZOSYN 50 IV ×4 (05:11→23:49)
--- NOTE | 2024-12-23 07:10 | PTCARENOTE ---
Report given verbally to RN assuming careJennifer. Questions answered.
[2024-12-23] MEDS: DESENEX/MITRAZOL/ZEASORB 1 APPLIC TOPICAL ×2 (07:56→19:21)
[2024-12-23] MEDS: MIRALAX 17 GRAMS TUBE (07:56)
[2024-12-23] MEDS: ATIVAN 2 MG IV ×2 (07:57→15:05)
[2024-12-23] MEDS: ONFI 10 MG TUBE ×2 (07:59→19:21)
[2024-12-23] MEDS: ProAmatine 15 MG TUBE ×3 (07:59→16:42)
[2024-12-23] MEDS: TRILEPTAL 600 MG TUBE ×2 (08:00→19:21)
--- NOTE | 2024-12-23 09:00 | PTCARENOTE ---
Complete assessment done and documented in worklist. Pt with occ moan, but no words noted, pt does not follow commands. +PERRL (+2 bilat/sluggish bilat). All exts flaccid, +3 edema noted on all exts. Pt turned, and all exts elevated on pillows. HR
SR-ST as per monitor. Pt received on levophed at 6 mcg/min, keeping sys BP>90. Temp 99.8 rectal. Protective drsgs on heels bilat and sacrum. Pt on Bipap 14/8, 15L, lobes with crackles noted throughout, O2 sat=96-99% ABD round, +BS. PEG tube with
tube feeds jevity 1.5 @ 45 ml/hr (goal rate) with hourly flushes 25 ml/hr. Ron cath intact draining min to mod amt yellow urine. Both pt's parents in room (slept overnight) and were updated. Dr Powell also came to room and was updated on pt.
[2024-12-23] MEDS: VIBRAMYCIN 100 MG TUBE ×2 (11:05→23:49)
--- NOTE | 2024-12-23 11:27 | CHAP ---
Nohemy was sleeping, non-responsive, moaning at times. Her loving parents were at her side. They shared background about Nohemy, and welcomed prayer for her, along with a prayer blanket. Emotional and spiritual support provided, with assurance of our
on-going availability.
--- NOTE | 2024-12-23 11:29 | W.PN.ID1 ---
Date of Service
Date of Service: December 23, 2024
Today's Communication
Continue Zosyn and doxy for now.
Assessment / Plan
Probable Multifocal Pneumonia - CAP
Hypoxemic resp failure
Reported Allergy vs intolerance of cephalexin, levofloxacin, sulfa (hives)
PEG
Aphasic at baseline
Chronic hypotension on midodrine 15 mg TID at baseline
H/o colonization with pseudomonas
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
- blood cultures x2 in progress no growth to date
- influenza and covid negative; strep pneumo/legionella urine ags negative
- continue zosyn for now given recent Pseudomonal colonization
- c/w doxycycline
- QTc 493
- follow leukocytosis
-
Chief Complaint
-: Pneumonia
Subjective / Review of Systems
Groaning. On BiPap.
Vital Signs / Physical Exam
Vital Signs
Vital Signs
Temp Pulse Resp BP Pulse Ox
99.7 F 104 19 99/63 96
12/23/24 07:00 12/23/24 11:05 12/23/24 11:00 12/23/24 11:05 12/23/24 11:00
Physical Exam
Constitutional: Acutely Ill and Chronically Ill
Cardiovascular: Regular Rate and Other (tachy)
Pulmonary: Rales (bilateral) and Other (labored)
Gastrointestinal: Soft, Non Tender and Non Distended
Extremities: Edema
Neurological: Other (lethargic)
Objective Data
Lab Data
Lab Results
12/23/24 04:14
12/23/24 04:14
PT 20.2 Sec (11.4-14.6) H 12/22/24 13:04
INR 1.70 12/22/24 13:04
APTT 43.7 Sec (23.4-35.0) H 12/22/24 13:04
Estimated Creat Clear 92 ml/min 12/23/24 04:14
Lactic Acid Cancelled 12/20/24 03:15
Total Bilirubin 1.2 mg/dl (0.2-1.3) 12/22/24 13:04
AST 58 U/L (14-36) H 12/22/24 13:04
ALT 31 U/L (0-35) 12/22/24 13:04
Alkaline Phosphatase 182 U/L (38-126) H 12/22/24 13:04
Most recent labs reviewed.
Micro Results:
12/20/24 01:22 Blood Culture - Preliminary
Blood/Venous No Growth in 72 hours- Final report to follow
12/20/24 01:06 Blood Culture - Preliminary
Blood/Venous No Growth in 72 hours- Final report to follow
12/19/24 23:50 Urine Culture - Final
Urine NO GROWTH
12/20/24 13:20 Nasal Screen MRSA (PCR) - Final
Nose MRSA not detected - performed by PCR methodology.
12/20/24 13:20 Legionella Urinary Antigen - Final
Urine Negative for Legionella pneumophila Serogroup 1 antigen.
A negative result does not rule out the possiblity of
Legionella infection due to other serogroups or species of
Legionella. Clinical correlation is recommended.
Streptococcus pneumoniae Antigen (M - Final
Negative for Streptococcus pneumoniae antigen.
A negative result does not exclude infection with
Streptococcus pneumoniae. Clinical correlation is
recommended.
12/19/24 23:23 Influenza Types A & B ([facility]) - Final
Nasal Swab Negative for Influenza A & B, NAAT
Negative results must be combined with clinical observations
and patient history.
Nucleic Acid Amplification test (NAAT)performed on the
[employer] platform.
--- NOTE | 2024-12-23 11:30 | PTCARENOTE ---
Levophed being weaned down this morning, presently at 4 mcg/min, BP 101/71. Bipap also was weaned from 14/8 15L to 12L, O2 sat 96%. Mouth care and giles care done. Pt turned q 2hrs. Wound care done on PEG site, see worklist. Dr Barrett, ICU
pilot control operator helper, updated on pt's progress.
--- NOTE | 2024-12-23 11:52 | W.PN.INTV ---
Today's Communication / Plan
Recommendations
Continue current antibiotics Zosyn/doxycycline
Continue oxygen supplementation
Continue BiPAP as needed
Provide comfort if there is increased work of breathing lorazepam/morphine ordered
Continue norepinephrine wean down as able.
Assessment
-
Assessment
Impression: Ms Orantes is an known non-verbal 48-year-old female with a history of cerebral palsy complicated functional quadriplegia and seizure who presented to ER for an evaluation of respiratory distress. She was placed on BiPAP due hypoxia and
was started on vasopressors for being hypotensive at ER. Additionally family noted a fever to 100.3 at home the day before ER admission. Patient's family reported good compliance with tube feeding without any abdominal distention and no obvious
regurgitation. Her chest x-ray showed diffuse pneumonia and the patient was consulted to the ICU team for further management/close follow-up.
The patient needed to be placed on BiPAP as needed and tolerated being on high flow nasal cannula supplemental oxygen to 10 L/min maintaining oxygen saturation to 93 for most part of the staying at ICU.The patient`s condition changing on a daily
basis. She is still not hemodynamically stable. It was planned to place the patient on BiPAP as needed and continue vasopressors for now. Patient is planned to move back to ICU.
Problems
Septic shock likely due to pneumonia
Hypoxemic respiratory failure due to severe pneumonia. Requiring mid flow oxygen as well as noninvasive mechanical ventilation
Hypoalbuminemia
Hypokalemia
Cerebral palsy complicated quadriplegia and seizures
Recent hospitalization for UTI
Tube feeding
Chronic right upper plus lower extremity edema
Transaminitis
Plan
#Septic shock
-Likely secondary to pneumonia possible due aspiration
-Chest x-ray shows diffuse pneumonia versus pulmonary edema-has a valgus stimulator on chest x-ray--continue to follow-up x-rays intermittently.
-Worsening leukocytosis today to 07/04/2025.
-Lactic acid :N, UA is suspicious for UTI-urine culture no growth
-Blood culture 72 H pending-48 hours no growth, sputum culture is planning to obtain
-influenza and covid negative; strep pneumo/legionella urine ags negative
-Continue Zosyn/doxycycline-by ED (given recent pseudomonal colonization)-continue doxycycline through tube. Antibiotics per infectious disease.
-Status post IV fluid resuscitation.
Arterial line in place.
-Continue midodrine through tube
-Continue Levophed- while maintaining MAP>32-[id number] BP-SBP>90 and plan to wean off
-Cortisol was appropriate
-
Hypoxemic respiratory failure due to severe bilateral pneumonia-not improved
Continue oxygen supplementation
Continue BiPAP for increased work of breathing as tolerated
High risk for aspiration.
#Hypoalbuminemia-contributed to hemodynamic instability.
-Albumin level 1.7
-Bolus of albumin given to 06/03/2025 for hemodynamic instability
-Nutritional support as able
#Cerebral palsy complicated quadriplegia and seizures
-Continue home medication for seizure (ox carbamazepine and clobazam)
-PRN lorazepam if needed
#Tube feeding
-Continue home regimen PEG tube feeding ( 16 hrs per day, 45ml/hr with 50ml/hr water flushes)
-Abdominal x-ray was not significant for bowel obstruction
#Chronic right upper and lower extremity edema-due to low albumin level. Chronic.
-Right lower extremity venous Doppler: No evidence of DVT
#Transaminitis
Mild.Improved. Likely due to hypotension/shock.
#DVT prophylaxis
-Lovenox sq
#CODE STATUS: DNR.
Morphine and Ativan will be provided for increased work of breathing. Discussed with both parents 12/22/[address]
Dr. Barrett updated father at the bedside 12/23/2024.
-
Critical care statement: A total of 35 minutes of critical care time was provided for this patient today. This includes management of unstable vital signs, evaluation of the patient at bedside, reviewing the patient's pertinent medical records
including ventilator settings, arterial blood gases, radiographs, microbiology, laboratory evaluations and discussion with primary team, critical care nursing, and respiratory therapy.
Subjective Dataa
Subjective Data
Date of Service:
Date of Service: December 23, 2024
Chief Complaint: System Manager Follow Up and Pulmonary Follow Up
Subjective:
Unable to provide history due to underlying cognitive impairment
Remains intermittently on BiPAP
Remains on mid flow oxygen
Remains hypotensive on vasopressors
Review of Systems
General: Other (Unable to provide due to underlying mental status)
Objective Data
Data Reviewed
Vital Signs / I&O / Oxygen:
Vital Signs
Temp Pulse Resp BP Pulse Ox
99.7 F 107 19 101/71 96
12/23/24 07:00 12/23/24 11:30 12/23/24 11:30 12/23/24 11:30 12/23/24 11:30
Intake and Output
12/22/24 12/23/24 12/24/24
06:59 06:59 06:59
Intake Total 1150.0 / 1150.0 2602.5 / 2730.0 496.4 / 496.4
Output Total 550 / 550 1073 / 1113 166 / 166
Balance 600.0 / 600.0 1529.5 / 1617.0 330.4 / 330.4
SaO2 96
Nasal Cannula flow liters per 6
minute
Physical Exam
General: Respiratory Distress (At rest) and Other (See HPI)
HEENT: Normocephalic and Anicteric
Cardiovascular: S1-S2 and Regular Rhythm
Respiratory: Clear and Other (Decreased breath sounds)
GI: Soft, Non Distended, Non Tender and Feeding Tube
Neurology: Non Verbal and Other (Cerebral palsy-nonverbal at baseline)
Skin: Warm, Dry and Other (Likely contact dermatitis around PEG tube)
Labs/Micro/Reports
Lab Data
12/23/24 04:14
12/23/24 04:14
Laboratory Results
12/22/24
13:04
PT 20.2 H
INR 1.70
APTT 43.7 H
Microbiology
12/20/24 01:22 Blood/Venous Blood Culture - Preliminary
No Growth in 72 hours- Final report to follow
12/20/24 01:06 Blood/Venous Blood Culture - Preliminary
No Growth in 72 hours- Final report to follow
12/19/24 23:50 Urine Urine Culture - Final
NO GROWTH
12/20/24 13:20 Nose Nasal Screen MRSA (PCR) - Final
MRSA not detected - performed by PCR methodology.
12/20/24 13:20 Urine Legionella Urinary Antigen - Final
Negative for Legionella pneumophila Serogroup 1 antigen.
A negative result does not rule out the possiblity of
Legionella infection due to other serogroups or species of
Legionella. Clinical correlation is recommended.
12/20/24 13:20 Urine Streptococcus pneumoniae Antigen (M - Final
Negative for Streptococcus pneumoniae antigen.
A negative result does not exclude infection with
Streptococcus pneumoniae. Clinical correlation is
recommended.
--- NOTE | 2024-12-23 13:30 | PTCARENOTE ---
O2 decreased from Bipap 14/8 12L to 15L mid flow at 1220. Pt tolerating, O2 sat= 95%, RR 15. HR sl increased to 110, 1 mg IV morphine given. PT's father at bedside and updated, grateful for care. All questions answered. 30 mins post mophine 1 mg, HR
SR 99, O2 sat=95%. Levophed weaned down now to 3 mcg/min, Keeping sys >90
--- NOTE | 2024-12-23 16:14 | W.PN.HOSP.TC ---
Today's Communication/Plan
-
maintain abx
bipap mx per pulm
wean off pressors as possible
guarded prognosis
Assessment / Plan
Assessment / Plan
Acute hypoxic respiratory failure
Aspiration pneumonia pneumonitis
-Chest x-ray reviewed and bilateral diffuse infiltrate
-Antibiotics adjusted to Zosyn and doxycycline, ID help appreciated.
-Pulmonology contacted and patient pulmonary status has declined
-patient required to be started on bipap agian
-Repeat chest x-ray showing worsening pneumonia
-wbc trending up
Sepsis and septic shock
-Patient again noted to be hypotensive today
-random cortisol 17.8
-Required to be started back on levo drip
-A line placed
Right lower extremity swelling
-Venous Doppler negative
Status post PEG tube
Stomy site contact dermatitis
-no reported issues at tube site
-Abd xr done and could not confirm location due to lack of contrast, if any clinical concern arises of displacement, will require proper tube study
-TF ordered for now
-Barrier cream for stomy site
Hyponatremia
-monitor
Chronic hypotension
Seizure disorder
Cerebral palsy with functional dysplasia
Chronic dysphagia status post PEG tube
History of ovarian cancer status post surgery
DNR/DNI
12/22 Vegetable Handler contacted family and discussed worsening pulmonary status, family agreed for patient to be switched to DNR status.
Total critical care time 36 mins . Total critical care time documented does not include time spent on separately billed procedures or the services of residents, students, nurses or physician assistants. I personally saw and examined the patient. I
have reviewed all diagnostic interpretations and treatment plans as written. I was present for the joshua portions of any procedures performed and the inclusive time noted in any critical care statement. Critical care time includes patient management
by me, time spent at the patients bedside, time to review lab and imaging results, discussing patient care, documentation in the medical record, and time spent with the family or caregiver.
Anticipated Discharge: > 48 hours
Subjective/Interval History
-
Date of Service: December 23, 2024
remains in shock , requiring vasopressors
o2 requirement increased, remains on BiPAP
Objective Data
-
Labs:
Laboratory Results
12/23/24 12/23/24
04:14 16:07
WBC 26.0 H
Hgb 11.5 L
Hct 34.2 L
Plt Count 251
Sodium 135 Pending
Potassium 4.2 Pending
Chloride 102 Pending
Carbon Dioxide 30 Pending
BUN 12 Pending
Creatinine 0.4 L Pending
Glucose 141 H Pending
Calcium 8.0 L Pending
Vital Signs:
Vital Signs
Temp Pulse Resp BP Pulse Ox
100.2 F 96 16 97/62 92
12/23/24 16:00 12/23/24 15:00 12/23/24 15:00 12/23/24 15:00 12/23/24 15:00
I&O
12/22/24 12/23/24 12/24/24
06:59 06:59 06:59
Intake Total 1150.0 / 1150.0 2602.5 / 2730.0 825.2 / 825.2
Output Total 550 / 550 1073 / 1113 256 / 256
Balance 600.0 / 600.0 1529.5 / 1617.0 569.2 / 569.2
Review of Systems
-
Unable to obtain full review of systems at this time due to: Acuity
Physical Exam
-
General: No Apparent Distress and Comfortable
HEENT: Atraumatic and Oxygen (NC)
Respiratory: Rhonchi
Cardiac: S1/S2; Negative Murmur
GI: Soft, Nontender, Nondistended and Peg Tube
Musculoskeletal: Edema, Right Lower Extrem and Edema, Left Lower Extrem
Neuro: Awake
Psych: Confused
[2024-12-23 16:36] LABS: Blood Urea Nitrogen 13 mg/dl (7-17); Calcium 7.8 mg/dl (8.4-10.2); Carbon Dioxide 34 mmol/L (22-30); Chloride 102 mmol/L (98-107); Estimated Creatinine Clearance 93 ml/min; Glucose 121 mg/dl (70-99); Potassium 4.1 mmol/L (3.5-5.1); Sodium 134 mmol/L (135-145); eGFR > 60.00
[2024-12-23] MEDS: ALBUMIN 5% 250 IV (16:38)
--- NOTE | 2024-12-23 16:56 | PTCARENOTE ---
Pt's U/O running low, Dr Barrett made aware of I+O's, Levophed dose, and BP. BMP drawn and sent to lab, and 5% albumin 12.5 gm in 250 ml hung.
--- NOTE | 2024-12-23 18:00 | PTCARENOTE ---
Pt's O2 sats running lower, 86% on 15L midflow. Pt now put back on Bipap 14/8, 15L. O2 sat=94%. Levophed weaned down to 1 mcg/min, BP 99/57. Morphine 1 mg iv given to help with breathing and comfort. Pt turned and made comfortable.
[2024-12-23] MEDS: LOVENOX 40 MG SC (18:42)
--- NOTE | 2024-12-23 19:30 | PTCARENOTE ---
Patient received lying still in bed with her eyes closed, respirations slightly tachypneic and labored on BIPAP. BIPAP 14/8, rate of 12, 15L bleed in oxygen. She recently received Morphine. BBS with coarse crackles t/o Left lung and RUL. RML and RLL
with bronchial breath sounds and fine crackles. S1 S2 regular, SR with 1st degree AVB on CM. Mother and Father are at the bedside. She is currently on Levophed, titrated as needed for SBP > 90. Generalized edema/Anasarca significant at 2+, BUE 3+,
BLE 2+. Ron catheter patent draining clear yellow urine. PEG site care given per order, cleansed and dressing change. Jevity 1.5 tube feeding at goal 45cc/hr with H2O flush 25cc/hr. Tolerating well with minimal residual. RUE and LUE Midline with
sites WDL. Bilateral arms elevated and patient turned every 2 hours. Protective foam on bilateral heels and sacrum. Under bilateral breast with improvement, redness at crease and zinc oxide donned.
[2024-12-24] VITALS (75 sets, daily range): BP systolic 39–122; BP diastolic 20–75; BMI 30.3
--- NOTE | 2024-12-24 | PTCARENOTE ---
Patient appears to be resting comfortably when undisturbed. Eyes closed, lying still, respirations nonlabored on BIPAP. RT turned oxygen down to 12L bleed in. Maintaining sats. BP soft, SBP 91, MAP 62, titrating Levo, see flowsheet. Afebrile, VSS.
UO is borderline. No other noted change in physical assessment.
--- NOTE | 2024-12-24 03:09 | PTCARENOTE ---
Patient SBP in the 80s with MAP in the 50s. Levophed titrated accordingly. Attempted to take BP in both forearms with same results.
[2024-12-24] MEDS: NSS (PRESERVATIVE FREE) 2 ML IV (03:39)
[2024-12-24] MEDS: ATIVAN 2 MG IV (03:39)
--- NOTE | 2024-12-24 03:45 | PTCARENOTE ---
Patient with increased restlessness and grunting with exhalation. Ativan given prn per order. See flowsheet for titration of Levophed, BP continues to be soft despite titration. Am labs drawn. Patient calms with Ativan given. No change on CM.
Continues to have coarse crackles t/o. Oral and deep pharyngeal suctioning for moderate amount of thick alicia brown secretions. No gag reflex noted. Respirations noted irregular on/off t/o night.
[2024-12-24 05:09] LABS: Blood Urea Nitrogen 15 mg/dl (7-17); Carbon Dioxide 33 mmol/L (22-30); Chloride 101 mmol/L (98-107); Estimated Creatinine Clearance 93 ml/min; Glucose 144 mg/dl (70-99); Hematocrit 35.3 % (37.0-47.0); Hemoglobin 11.1 g/dL (12.0-16.0); Mean Corp Hgb Conc. 31.4 g/dL (33.0-37.0); Mean Corpuscular Hgb 32.6 pg (27.0-31.0); Mean Corpuscular Volume 103.5 fL (81.0-99.0); Mean Platelet Volume 11.1 fL (7.4-10.4); Platelet Count 263 10^3/uL (130-400); Potassium 4.3 mmol/L (3.5-5.1); Red Blood Cell Count 3.41 10^6/uL (4.20-5.40); Red Cell Dist. Width 15.5 % (11.5-14.5); Sodium 134 mmol/L (135-145); White Blood Cell Count 31.2 10^3/uL (4.8-10.8); eGFR > 60.00
--- NOTE | 2024-12-24 05:24 | PTCARENOTE ---
Addendum entered by Massiel Bradley RN 12/24/24 05:27:
WBC 31.2, Mey aware. No fever overnight.
Original Note:
Mey Bellamy APN updated with patient clinical status. Advised of soft BP, up titrating of Levophed, low UO, irregular respirations, Lung sounds coarse crackles and no gag reflex; she is aware. No change in course of action at this time. Patient
family is aware that her BP has been low tonight.
[2024-12-24] MEDS: ZOSYN 50 IV ×2 (05:35→11:45)
[2024-12-24] MEDS: LEVOPHED 250 IV ×3 (06:08→14:03)
--- NOTE | 2024-12-24 06:51 | PTCARENOTE ---
Addendum entered by Massiel Bradley RN 12/24/24 07:16:
When disconnecting ABx this am, noted that Left arm Midline is leaking at insertion site. Left upper arm is very edematous ? infitrated. IV team was notified by AMI Vásquez.
Original Note:
Report given verbally to oncoming silvana, Thalia MUELLER. Questions answered.
[2024-12-24] MEDS: MIRALAX TUBE (06:58)
[2024-12-24] MEDS: ONFI 10 MG TUBE (08:15)
[2024-12-24] MEDS: DESENEX/MITRAZOL/ZEASORB 1 APPLIC TOPICAL (08:15)
[2024-12-24] MEDS: TRILEPTAL 600 MG TUBE (08:15)
[2024-12-24] MEDS: ProAmatine 15 MG TUBE ×2 (08:15→11:45)
--- NOTE | 2024-12-24 08:37 | W.PN.HOSP.TC ---
Today's Communication/Plan
-
Patient becoming appropriate for comfort care
Discussed with pricing actuary, planning to talk with family
Assessment / Plan
Assessment / Plan
Acute hypoxic respiratory failure
Aspiration pneumonia pneumonitis
-Chest x-ray reviewed and bilateral diffuse infiltrate
-Antibiotics adjusted to Zosyn and doxycycline, ID help appreciated.
-Pulmonology contacted and patient pulmonary status has declined
-Patient been maintained on BiPAP at this point
-Repeat chest x-ray showing worsening pneumonia
-Pulmonary status remains precarious
Sepsis and septic shock
-Patient again noted to be hypotensive today
-random cortisol 17.8
-Required to be started back on levo drip
-vasopressor requirement has gone up to 17mcg/min
Right lower extremity swelling
-Venous Doppler negative
Status post PEG tube
Stomy site contact dermatitis
-no reported issues at tube site
-Abd xr done and could not confirm location due to lack of contrast, if any clinical concern arises of displacement, will require proper tube study
-TF ordered for now
-Barrier cream for stomy site
Hyponatremia
-monitor
Chronic hypotension
Seizure disorder
Cerebral palsy with functional dysplasia
Chronic dysphagia status post PEG tube
History of ovarian cancer status post surgery
DNR/DNI
/ Military Administrative Technician contacted family and discussed worsening pulmonary status, family agreed for patient to be switched to DNR status.
Total critical care time 37 mins . Total critical care time documented does not include time spent on separately billed procedures or the services of residents, students, nurses or physician assistants. I personally saw and examined the patient. I
have reviewed all diagnostic interpretations and treatment plans as written. I was present for the joshua portions of any procedures performed and the inclusive time noted in any critical care statement. Critical care time includes patient management
by me, time spent at the patients bedside, time to review lab and imaging results, discussing patient care, documentation in the medical record, and time spent with the family or caregiver.
Anticipated Discharge: Within 24 hours
Subjective/Interval History
-
Date of Service: December 24, 2024
Patient continues on BiPAP
Remained minimally responsive
Vasopressor requirement has increased to 17 mcg per minute of levophed
Objective Data
-
Labs:
Laboratory Results
12/24/24
04:29
WBC 31.2 H
Hgb 11.1 L
Hct 35.3 L
Plt Count 263
Sodium 134 L
Potassium 4.3
Chloride 101
Carbon Dioxide 33 H
BUN 15
Creatinine 0.5 L
Glucose 144 H
Calcium 8.0 L
Vital Signs:
Vital Signs
Temp Pulse Resp BP Pulse Ox
98.3 F 103 14 96/61 96
12/24/24 07:00 12/24/24 08:15 12/24/24 08:15 12/24/24 08:15 12/24/24 08:15
I&O
12/23/24 12/24/24 12/25/24
06:59 06:59 06:59
Intake Total 2602.5 / 2730.0 2800.5 / 2934.3 267.6 / 267.6
Output Total 1073 / 1113 704 / 729 50 / 50
Balance 1529.5 / 1617.0 2096.5 / 2205.3 217.6 / 217.6
Review of Systems
-
Unable to obtain full review of systems at this time due to: Acuity
Physical Exam
-
General: Comfortable
HEENT: Atraumatic and Oxygen (BiPAP)
Respiratory: Rhonchi
Cardiac: S1/S2 and Tachycardic; Negative Murmur
GI: Soft, Nontender, Nondistended and Peg Tube
Musculoskeletal: Edema, Right Lower Extrem and Edema, Left Lower Extrem
Neuro: Negative Awake or Alert
Psych: Confused
--- NOTE | 2024-12-24 08:41 | PTCARENOTE ---
pt received from previous rn- left midline leaking, IV team at bedside- midline removed. plan of care discussed with parents at the bedside, Dr. Choi and Dr. Barrett aware of need for picc line and pt with short episodes of apnea, sats 98%. no
further orders at this time. pt remains on bipap, crackles on auscultation. pt nsr with 1st degree heart block. generalized edema +2 to +3. giles draining yellow urine. levophed continues. pt nonverbal at baseline, moans at times. all safety
precautions in place
--- NOTE | 2024-12-24 08:44 | PTCARENOTE ---
pt received from previous rn- left midline leaking, IV team at bedside- midline removed. plan of care discussed with parents at the bedside, Dr. Choi and Dr. Barrett aware of need for picc line and pt with short episodes of apnea, sats 98%. no
further orders at this time. pt remains on bipap, crackles on auscultation. pt nsr with 1st degree heart block. generalized edema +2 to +3. giles draining yellow urine. peg tube site dressing c/d/i with jevity 1.5 infusing. levophed continues. pt
nonverbal at baseline, moans at times. all safety precautions in place.
--- NOTE | 2024-12-24 11:23 | W.PN.INTV ---
Today's Communication / Plan
Recommendations
Discontinue BiPAP
Okay to continue pressors. No additional pressors will be added
No additional procedures
Continue to focus on comfort
Will readdress with family again. Continue lorazepam and morphine as needed for increased work of breathing.
Assessment
-
Assessment
Impression: Ms Orantes is an known non-verbal 48-year-old female with a history of cerebral palsy complicated functional quadriplegia and seizure who presented to ER for an evaluation of respiratory distress. She was placed on BiPAP due hypoxia and
was started on vasopressors for being hypotensive at ER. Additionally family noted a fever to 100.3 at home the day before ER admission. Patient's family reported good compliance with tube feeding without any abdominal distention and no obvious
regurgitation. Her chest x-ray showed diffuse pneumonia and the patient was consulted to the ICU team for further management/close follow-up.
The patient needed to be placed on BiPAP as needed and tolerated being on high flow nasal cannula supplemental oxygen to 10 L/min maintaining oxygen saturation to 93 for most part of the staying at ICU.The patient`s condition changing on a daily
basis. She is still not hemodynamically stable. It was planned to place the patient on BiPAP as needed and continue vasopressors for now. Patient is planned to move back to ICU.
Problems
Septic shock likely due to pneumonia
Hypoxemic respiratory failure due to severe pneumonia. Requiring mid flow oxygen as well as noninvasive mechanical ventilation
Hypoalbuminemia
Hypokalemia
Cerebral palsy complicated quadriplegia and seizures
Recent hospitalization for UTI
Tube feeding
Chronic right upper plus lower extremity edema
Transaminitis
Plan
Unfortunately, not doing well, worsening leukocytosis, worsening hemodynamics, requiring BiPAP for increased work of breathing 12/24/2024.
#Septic shock
-Likely secondary to pneumonia possible due aspiration
-Chest x-ray shows diffuse pneumonia versus pulmonary edema-has a valgus stimulator on chest x-ray--continue to follow-up x-rays intermittently.
-Worsening leukocytosis today 31,000 12/24/2024
-Lactic acid :N,
UA is suspicious for UTI-urine culture no growth
-Blood culture-48 hours no growth
Unable to produce sputum.
-influenza and covid negative; strep pneumo/legionella urine ags negative
-Continue Zosyn/doxycycline-by ED (given recent pseudomonal colonization)-continue doxycycline through tube. Antibiotics per infectious disease.
-Status post IV fluid resuscitation.
Arterial line in place.
-Continue midodrine through tube
-Continue Levophed- while maintaining MAP>98-[id number]-[id number] BP-SBP>90 and plan to wean off-worsening requirements.
-Cortisol was appropriate
-
Hypoxemic respiratory failure due to severe bilateral pneumonia-not improved
Continue oxygen supplementation
Discussed with parents, will discontinue BiPAP. Patient has very poor mental status. Not improving.
High risk for aspiration.
#Hypoalbuminemia-contributed to hemodynamic instability.
-Albumin level 1.7
-Bolus of albumin given to 06/03/2025 for hemodynamic instability
-Nutritional support as able
#Cerebral palsy complicated quadriplegia and seizures
-Continue home medication for seizure (ox carbamazepine and clobazam)
-PRN lorazepam if needed
#Tube feeding
-Continue home regimen PEG tube feeding ( 16 hrs per day, 45ml/hr with 50ml/hr water flushes)
-Abdominal x-ray was not significant for bowel obstruction
#Chronic right upper and lower extremity edema-due to low albumin level. Chronic.
-Right lower extremity venous Doppler: No evidence of DVT
#Transaminitis
Mild.Improved. Likely due to hypotension/shock.
#DVT prophylaxis
-Lovenox sq
#CODE STATUS: DNR.
Morphine and Ativan will be provided for increased work of breathing. Discussed with both parents 12/22/[address]
Dr[address] Barrett updated father at the bedside 12/23/2024.
Unfortunately poor prognosis. Dr. Barrett updated family again on 12/24/2024. I am recommending de-escalation of care patient is hospice appropriate.
Discussed with mother and father at the bedside. Will discontinue BiPAP first. Provide morphine and Ativan for comfort if there is increased work of breathing. Will not add additional pressors. Will readdress later today depending on clinical
situation whether we stop vasopressors
-
Critical care statement: A total of 34 minutes of critical care time was provided for this patient today. This includes management of unstable vital signs, evaluation of the patient at bedside, reviewing the patient's pertinent medical records
including ventilator settings, arterial blood gases, radiographs, microbiology, laboratory evaluations and discussion with primary team, critical care nursing, and respiratory therapy.
Subjective Dataa
Subjective Data
Date of Service:
Date of Service: December 24, 2024
Chief Complaint: Make Up Artist Follow Up and Pulmonary Follow Up
Subjective:
Patient noncommunicative at baseline
Remains on supplemental oxygen, requiring BiPAP due to increased work of breathing
Worsening leukocytosis
Review of Systems
General: Other (Unable to obtain-underlying mental status and critical illness)
Objective Data
Data Reviewed
Vital Signs / I&O / Oxygen:
Vital Signs
Temp Pulse Resp BP Pulse Ox
98.3 F 94 15 111/59 97
12/24/24 07:00 12/24/24 10:15 12/24/24 10:15 12/24/24 10:15 12/24/24 10:15
Intake and Output
12/23/24 12/24/24 12/25/24
06:59 06:59 06:59
Intake Total 2602.5 / 2730.0 2800.5 / 2934.3 535.2 / 535.2
Output Total 1073 / 1113 704 / 729 100 / 100
Balance 1529.5 / 1617.0 2096.5 / 2205.3 435.2 / 435.2
SaO2 97
Nasal Cannula flow liters per 15
minute
Physical Exam
General: Respiratory Distress (At rest) and Other (See HPI)
HEENT: Normocephalic and Anicteric
Cardiovascular: S1-S2 and Regular Rhythm
Respiratory: Clear and Other (Decreased breath sounds)
GI: Soft, Non Distended, Non Tender and Feeding Tube
Neurology: Non Verbal and Other (Cerebral palsy-nonverbal at baseline)
Skin: Warm, Dry and Other (Likely contact dermatitis around PEG tube)
Labs/Micro/Reports
Lab Data
12/24/24 04:29
12/24/24 04:29
Microbiology
12/20/24 01:22 Blood/Venous Blood Culture - Preliminary
No Growth in 4 days- Final report to follow
12/20/24 01:06 Blood/Venous Blood Culture - Preliminary
No Growth in 4 days- Final report to follow
12/19/24 23:50 Urine Urine Culture - Final
NO GROWTH
[2024-12-24] MEDS: VIBRAMYCIN 100 MG TUBE (11:45)
[2024-12-24] MEDS: MORPHINE SULFATE 1 MG IV ×4 (11:45→23:15)
--- NOTE | 2024-12-24 11:53 | PTCARENOTE ---
Dr. Mitchell in to speak with pts parents- ordered to discontinue bipap and give morphine, no further titration up on levophed at this time. pt given morphine, placed on 15Lmidlfow, turned and repositioned, oral care provided. assessment unchanged.
[2024-12-24] MEDS: TYLENOL ORAL SOLUTION 650 MG TUBE (14:52)
--- NOTE | 2024-12-24 16:19 | PTCARENOTE ---
pt with agonal breathing, Dr. Barrett aware, morphine given as per order. family at bedside and remains updated.
[2024-12-24] MEDS: ZOSYN IV (18:04)
[2024-12-24] MEDS: LOVENOX SC (18:04)
[2024-12-24] MEDS: ProAmatine TUBE (18:04)
--- NOTE | 2024-12-24 18:12 | W.PN.UPDATE ---
Update Note
Progress Note Update
Family has decided to proceed with comfort measures
Will discontinue unnecessary medications
Continue with morphine and Ativan
Oxygen supplementation for comfort
Transfer to [facility]
Critical care team will sign off
[2024-12-24] MEDS: MORPHINE SULFATE 2 MG IV (18:20)
--- NOTE | 2024-12-24 18:25 | PTCARENOTE ---
pt made comfort care, levophed off, morphine given as per order. repositioned for comfort, tube feeds stopped, family at bedside.
[2024-12-24] MEDS: MORPHINE 100 IV (18:38)
--- NOTE | 2024-12-24 21:00 | PTCARENOTE ---
Patient incontinent of large liquid BM. Perineal and giles care rendered, partial linen change.
--- NOTE | 2024-12-24 22:15 | PTCARENOTE ---
Addendum entered by Massiel Bradley RN 12/24/24 22:38:
This note should be timed at 1930
Original Note:
Patient received lying still in bed with eyes closed, respirations irregular and agonal at times but she appears comfortable. She is on a Morphine gtt, comfort measures only. Limited assessment due to patient clinical status. Patient's brothers x 2
and mom and dad are at the bedside. PEG is clamped. Patient is on oxygen at 15L midflow. HOB up. Ron catheter in place draining clear yellow urine. Prn Morphine and Ativan are ordered as needed. SR with 1st degree AVB on CM, HR 70s. Monitor off in
patient room.
[2024-12-25 00:05] VITALS: BP 53/18
[2024-12-25] MEDS: MORPHINE SULFATE 1 MG IV (03:25)
--- NOTE | 2024-12-25 03:30 | PTCARENOTE ---
Addendum entered by Massiel Bradley RN 12/25/24 04:11:
Nasal trumpet to rectum for comfort.
Original Note:
Patient with irregular tachypnea, MSO4 prn given, remains on Morphine gtt. Incontinent of large liquid BM. Ron care, skin care, partial bath, perineal care, partial linen change. Oral care. Repositioned for comfort.
--- NOTE | 2024-12-25 05:30 | PTCARENOTE ---
Patient has been with agonal breathing throughout the night. Prn MSO4 given per protocol. Family vigilant at the bedside.
[2024-12-25] MEDS: ATIVAN 2 MG IV (06:14)
--- NOTE | 2024-12-25 06:47 | PTCARENOTE ---
Report given verbally to AMI Vásquez, assuming care. Questions answered. Family remains at bedside.
[2024-12-25] MEDS: MORPHINE SULFATE IV (07:25)
--- NOTE | 2024-12-25 07:59 | PTCARENOTE ---
Addendum entered by Thalia Dawn RN 12/25/24 08:04:
[facility] notified.
Original Note:
pt asystole at 0734, Dr. Tate pronounced pt. family at bedside.
--- NOTE | 2024-12-25 09:36 | W.PN.DEATH ---
Addendum entered and electronically signed by Madhav Tate MD 12/26/24 15:25:
Dictation- [id number]
Original Note:
Pronouncement of
-
Late documentation. Patient was seen earlier in pronounced
Called to see patient to pronounce.
No spontaneous heart tones or respirations noted.
Patient not responsive to verbal stimuli.
Patient is pronounced .
Time of : 07:34
Date of : 12/25/24
Cause of : Sepsis, secondary to aspiration pneumonia
Family Notified: Yes (At bedside)
== END 2024-12-25 07:34 | disposition expired | DRG 871 ==
LOC: ICU 03:00
PROVIDERS: Hospitalist; Nurse Practitioner Family; Student in an Organized Health Care Education/Training Program; ADMITTING PHYSICIAN Internal Medicine; ATTENDING PHYSICIAN Hospitalist; CONSULT PHYSICIAN Student in an Organized Health Care Education/Training Program; EMERGENCY PHYSICIAN Student in an Organized Health Care Education/Training Program; FAMILY PHYSICIAN Family Medicine; OTHER PHYSICIAN Internal Medicine Critical Care Medicine
PROC: 5A09357 Assistance with Respiratory Ventilation, Less than 24 Consecutive Hours, Continuous Positive Airway Pressure (ICD-10-PCS; 2024-12-20)
DX: A41.9 Sepsis, unspecified organism (principal); J18.9 Pneumonia, unspecified organism; J69.0 Pneumonitis due to inhalation of food and vomit; J96.01 Acute respiratory failure with hypoxia; R65.21 Severe sepsis with septic shock; R53.2 Functional quadriplegia; E87.1 Hypo-osmolality and hyponatremia; Z66 Do not resuscitate; Z51.5 Encounter for palliative care; G80.8 Other cerebral palsy; I95.89 Other hypotension; K59.09 Other constipation; E88.09 Other disorders of plasma-protein metabolism, not elsewhere classified; E87.6 Hypokalemia; G40.909 Epilepsy, unspecified, not intractable, without status epilepticus; L25.9 Unspecified contact dermatitis, unspecified cause; I10 Essential (primary) hypertension; Z85.43 Personal history of malignant neoplasm of ovary; Z93.1 Gastrostomy status; Z88.2 Allergy status to sulfonamides; Z88.1 Allergy status to other antibiotic agents; Z79.899 Other long term (current) drug therapy; Z11.52 Encounter for screening for COVID-19
CPT/HCPCS: 71045; 74018; 80048; 80053; 80076; 81003; 81015; 82533; 82805; 83605; 83735; 83880; 84145; 84484; 84703; 85025; 85027; 85610; 85730; 87040; 87086; 87449; 87502; 87641; 87811; 87899; 93005; 93971; 94660; P9045